=== PATIENT | male | born 1945 | race Caucasian/White ===

== ENCOUNTER 2020-01-06 15:29 | Observation (INO) ==
--- NOTE | 2020-01-06 16:40 | XRay Report ---
XR chest 1V portable CLINICAL HISTORY: Chest Pain dyspnea COMPARISON STUDY: 12/16/2019 FINDINGS: Mild stable cardiomegaly. Slight chronic interstitial prominence. Lungs are considered clear. No focal infiltrative change. IMPRESSION: Mild stable cardiomegaly. Chronic change. No acute process. ACT 112: Negative or not required by law. The above report was generated using voice recognition software. It may contain grammatical, syntax or spelling errors. Electronically signed by: Sher Sorenson M.D. 01/06/2020 4:38 PM
[2020-01-06 17:01] LABS: Basophils # (auto) 0.03 K/uL (0-0.2); Basophils % (auto) 0.4 %; Eosinophils # (auto) 1.29 K/uL (0-0.5); Eosinophils % (auto) 17.3 %; Hematocrit (blood only) 26.7 % (42-52); Hemoglobin 8.2 g/dL (14.0-18.0); Immature Granulocytes # (auto) 0.01 K/uL (0.00-0.02); Immature Granulocytes % (auto) 0.1 %; Lymphocytes # (auto) 1.65 K/uL (1.2-3.4); Lymphocytes % (auto) 22.2 %; Mean Corpuscular Hemoglobin 29.6 pg (25-34); Mean Corpuscular Hgb Conc 30.7 g/dL (32-36); Mean Corpuscular Volume 96.4 fL (80-100); Mean Platelet Volume 10.4 fL (7.4-10.4); Monocytes # (auto) 0.81 K/uL (0.11-0.59); Monocytes % (auto) 10.9 %; Neutrophils # (auto) 3.65 K/uL (1.4-6.5); Neutrophils % (auto) 49.1 %; Platelet Count 199 K/uL (130-400); RDW Coefficient of Variation 13.1 % (11.5-14.5); Red Blood Count 2.77 M/uL (4.7-6.1); White Blood Count 7.44 K/uL (4.8-10.8)
[2020-01-06 17:04] LABS: INR 1.1 (0.9-1.1); Partial Thromboplastin Time 27.3 Seconds (21.0-31.0); Prothrombin Time 10.9 Seconds (9.0-12.0)
[2020-01-06 17:10] LABS: Albumin Level 3.3 gm/dl (3.4-5.0); BUN Creatinine Ratio 16.5 (10-20); Creatinine Clr Calc Pharmacy 14.3 ml/min; Est GFR (African American) 14.1; Est GFR (Non-African American) 12.1; Potassium 4.8 mmol/L (3.5-5.1)
[2020-01-06 17:14] LABS: Albumin Globulin Ratio 0.8 (0.9-2); Bilirubin,Total 0.4 mg/dl (0.2-1); Total Protein 7.3 gm/dl (6.4-8.2); Troponin I 0.021 ng/ml (0-0.045)
[2020-01-06] MEDS ORDERED: ASPIRIN CHEW 324 MG PO STA (18:27)
--- NOTE | 2020-01-06 18:39 | History & Physical Report ---
Date of Service January 06, 2020 Assessment & Plan (1) Angina pectoris: Pt is 74 y/o M with PMH DM II, CKD IV/V, has AV fistula, not on dialysis yet, chronic anemia, HTN, HLD, PVD s/p stent, tobacco abuse, gastritis, presented to ER with complaint of intermittent chest pain with walking with as sociated SOB and left jaw discomfort x 1 month. symptoms resolve with rest after approx 20 minutes. No Current CP In ER P: 53, R: 16, BP: 132/58, 98% on RA No leukocytosis, H/H: 8.2/ (baseline Hgb 8-9), Troponin: 0.02, EKG: sinus with RBBB, nonspecific ST changes, Old EKG with RBBB, T wave inversions Chest pain consistent with angina. Risk factors: HTN, hyperlipidemia, DM, tobacco use -Monitor Vitals -Repeat EKG in am -Will trend troponin -Echo -lipid panel in am, continue statin -Continue aspirin, carvedilol, Plavix -Nitro prn CP and repeat EKG for CP -Cardiology consult (2) Hypertension: Stable -Continue carvedilol, amlodipine, hydralazine (3) CKD (chronic kidney disease), stage IV: CKD IV and early V. Has fistula. Not on dialysis yet. Follows with Dr Jay Cr: 4.4. Baseline ~3.9-4) -Monitor renal functions -Avoid nephrotoxic agents when possible (4) PAD (peripheral artery disease): S/P stent to LLE in [place] by Dr Mcneill On Plavix, stopped taking 1 month ago secondary to skin bleeding after scratching -Resume Plavix (5) Diabetes mellitus, type 2: A1c: 5.7 on -Hold glimepiride, Tradjenta -Novolog sliding scale per protocol (6) Chronic anemia: H/H: 8.2 (baseline Hgb 8-9) -Monitor CBC (7) BPH (benign prostatic hyperplasia): -Continue finasteride, tamsulosin (8) Gastritis: History EGD 12/29/2019: Erosive gastritis/duodenitis, nonbleeding AVM that was clipped Denies melena, hematochezia, abdominal pain -Continue PPI (9) Tobacco abuse: -Smoking cessation encouraged DVT Prophylaxis -SCDs Admit tele observation Full Code as per discussion with pt Follows with Dr Peña for routine care Pt was seen and care coordinated with Dr Crabtree. See addendum History of Present Illness Chief Complaint: CP Primary Care Provider: Laron Peña MD Pt is 74 y/o M with PMH DM II, CKD IV/V, has AV fistula, not on dialysis yet, chronic anemia, HTN, HLD, PVD s/p stent, tobacco abuse, gastritis, presented to ER with complaint of intermittent chest pain x 1 month. Patient states for the past month he has been having anterior chest pain with walking with associated shortness of breath and discomfort to left jaw. Reports when symptoms occur he sits and rests and symptoms resolve in approximately 20 minutes. Denies any current CP. Denies diaphoresis, dizziness, palpitations. Patient states he is still taking Plavix daily secondary to PVD however stopped taking it approximately 1 month ago secondary to bleeding of skin after scratching. He reports had stent to left leg at [place] by Dr Mcneill, thinks approx 1.5 years ago. Denies fever/chills, diaphoresis, N/V/D/C, DOW, dizziness, syncope, vision changes, neck pain, orthopnea, cough, sore throat, choking, otalgia, rhinorrhea, abdominal pain, paresthesias, weakness, extremity edema, rashes, urinary symptoms, melena, hematochezia. History EGD 12/29/2019: Erosive gastritis/duodenitis, nonbleeding AVM that was clipped Allergies Allergy/AdvReac Type Severity Reaction Status Date / Time No Known Allergies Allergy Verified 01/06/20 18:08 Home Medications Home Medications Medication Instructions Recorded Confirmed Type Tradjenta 5 mg PO QAM 07/31/19 01/06/20 History amlodipine 10 mg PO HS 07/31/19 01/06/20 History atorvastatin 40 mg PO QPM 07/31/19 01/06/20 History carvedilol 12.5 mg PO BID 07/31/19 01/06/20 History cholecalciferol (vitamin D3) 1,000 unit PO QAM 07/31/19 01/06/20 History [Vitamin D3] citalopram 40 mg PO QPM 07/31/19 01/06/20 History dicyclomine 10 mg PO TID 07/31/19 01/06/20 History finasteride 5 mg PO HS 07/31/19 01/06/20 History glimepiride 4 mg PO QAM 07/31/19 01/06/20 History hydralazine 75 mg PO BID 07/31/19 01/06/20 History tamsulosin 0.4 mg PO HS 07/31/19 01/06/20 History albuterol sulfate 2 puff INHALATION Q6H PRN 12/16/19 01/06/20 History loratadine 10 mg PO DAILY PRN 12/16/19 01/06/20 History aspirin 81 mg PO QAM 01/06/20 01/06/20 History clopidogrel 75 mg PO DAILY 01/06/20 01/06/20 History pantoprazole 40 mg PO QAM 01/06/20 01/06/20 History Past Med/Surg History Medical History Anxiety and depression BPH (benign prostatic hyperplasia) Chronic anemia CKD (chronic kidney disease), stage IV Diabetes mellitus, type 2 Hyperlipidemia Hypertension Osteoarthritis PAD (peripheral artery disease) Tobacco abuse Surgical History Cardiac murmur History of cataract surgery RT/LEFT History of cholecystectomy History of colonoscopy History of esophagogastroduodenoscopy (EGD) History of procedure for peripheral vascular disease LEFT LEG (STENT PLACED/REASON FOR TAKING PLAVIX) History of tooth extraction Family History Brother Cancer Social History Preferred Language: Wol[place] Communication Ability: Effective 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 Beliefs That Will Affect Care: None Current Living Situation: Alone Feels Safe at Home: Yes Smoking Status: Current every day smoker Tobacco Type: cigarettes ; Cigarettes Per Day: 10 CIG ; Second Hand Exposure: No ; Hx Alcohol Use: No Hx Substance Use: No Review of Systems Review of Systems: All systems reviewed & are unremarkable except as noted in HPI & below Physical Exam Physical Exam: General: no distress, chronic ill appearing, WDWN Head: normocephalic, atraumatic Eyes: PERRL, EOM's intact, conjunctiva non-injected, anicteric ENT: normal inspection external ears, nose, mucous membranes moist Neck: supple, trachea midline Lungs: clear, no respiratory distress, no wheezing/rhonchi/rales CV: RRR, systolic murmur, no pretibial edema Abd: normal BS, soft, non-tender Ext: no cyanosis, no calf tenderness; Left forearm with fistula with palpable thrill Neuro: A&O x 3, no focal deficits noted, normal affect Skin: warm, dry Results & Data Vital Signs (Past 12 Hours) Vital Signs Temp Pulse Resp BP Pulse Ox 01/06/20 16:59 98 01/06/20 16:51 100 01/06/20 16:05 36.8 C 53 L 16 132/58 L 98 Laboratory Results Short CBC 01/06/20 Range/Units 16:34 WBC 7.44 (4.8-10.8) K/uL Hgb 8.2 L (14.0-18.0) g/dL Hct 26.7 L (42-52) % Plt Count 199 (130-400) K/uL BMP 01/06/20 16:34 Sodium 139 Potassium 4.8 Chloride 112 H Carbon Dioxide 19 L BUN 72 H Creatinine 4.40 H Glucose 161 H Calcium 9.0 Cardiac Enzymes 01/06/20 Range/Units 16:34 Troponin I 0.021 (0-0.045) ng/ml Liver Function 01/06/20 Range/Units 16:34 Total Bilirubin 0.4 (0.2-1) mg/dl AST 18 (15-37) U/L ALT 31 (12-78) U/L Alkaline Phosphatase 78 (45-117) U/L Albumin 3.3 L (3.4-5.0) gm/dl Diagnostic Findings CXR: IMPRESSION: Mild stable cardiomegaly. Chronic change. No acute process. Code Status & VTE Plan VTE Prophylaxis Plan VTE Prophylaxis will be ordered: Yes Supervising Physician Co-Signing Physician Notes Attending addendum The patient is seen and examined in telemetry unit He has been complaining of chest pain on and off with shortness of breath very suggestive of angina for the last 1 month Complaints of generalized weakness without any fever and/or chills No abdominal pain nausea no vomiting On examination No apparent distress at rest Hemodynamically stable Chest-decreased breath sounds at the bases Heart- S1-S2, 2/6 systolic murmur over precordium Abdomen-benign Extremities -no edema BENEFITS CONSULTANT-alert, awake and oriented x3. Generally weak Admission labs, imaging studies and EKG reviewed Has typical angina without significant EKG and a troponin elevation Associated with significant comorbid conditions as mentioned in H&P Serial cardiac enzymes, EKG and cardiology consult Agree with assessment and plan as outlined above by CHANELL Bautista Dr
[2020-01-06] MEDS ORDERED: GLUCOSE 10 TABS/TUBE PO PRN (20:05)
[2020-01-06] MEDS ORDERED: CARBOHYDRATES FOR HYPOGLYCEMIA PO PRN (20:05)
[2020-01-06] MEDS ORDERED: DEXTROSE 50% 50 ML SYRINGE IV PRN (20:05)
[2020-01-06] MEDS ORDERED: GLUCOSE 40% GEL 15 GM TUBE PO PRN (20:05)
[2020-01-06] MEDS ORDERED: GLUCAGON FOR INJ 1 MG VIAL SQ PRN (20:05)
[2020-01-06] MEDS ORDERED: NITROGLYCERIN SL 0.4 MG/TAB TAB SL PRN (20:05)
[2020-01-06] MEDS ORDERED: LORATADINE 10 MG TAB PO PRN (20:05)
[2020-01-06] MEDS ORDERED: ACETAMINOPHEN 325 MG TAB PO PRN (20:05)
[2020-01-06] MEDS: CITALOPRAM 40 MG TAB PO SCH (21:13)
[2020-01-06] MEDS: carvediloL 12.5 MG TAB PO SCH (21:13)
[2020-01-06] MEDS: AMLODIPINE BESYLATE 5 MG TAB PO SCH (21:14)
[2020-01-06] MEDS: TAMSULOSIN HCL 0.4 MG CAP PO SCH (21:14)
[2020-01-06] MEDS: FINASTERIDE 5 MG TAB PO SCH (21:14)
[2020-01-06] MEDS: INSULIN ASPART 100 UNITS/ML 3 ML PEN SC SCH (21:15)
[2020-01-06] MEDS: ATORVASTATIN 40 MG TAB PO SCH (21:15)
--- NOTE | 2020-01-06 23:12 | Emergency Department Note ---
Entered by Vargas Bruner acting as a scribe for History of Present Illness General Chief complaint: Cardiac Assessment Stated complaint: CHEST PAIN, SOB Time Seen by Provider: 01/06/20 16:13 Source: patient History of Present Illness Onset (ago): month(s) 1 Location: chest Pain Consistency: + intermittent Quality: + sharp Exacerbated By: + other (cold air and exertion) Associated symptoms: + denies other symptoms (lightheadedness, sweating, dizziness, arm pain, neck pain, fever, cold symptoms, current chest pain, leg swelling, leg pain, chest pressure, black stool, bloody stool, chest tightness) The patient is a 74 y/o male who presents to the ED w/ CC of intermittent, sharp chest pain beginning a month ago. The patient states he was evaluated in the ED two weeks ago for similar symptoms and was sent home. He reports his chest pain is not every day, and the last time he had pain was about 3 hours ago. The patient notes he feels that cold air induces his chest pain, and it worsens with exertion as he goes up the stairs. He states he is also short of breath. The patient reports he was evaluated by his PCP today and was told to go directly to the ED and not to return home. He notes he has had a stress test a few years ago. The patient states he has a history of HLD, HTN, and DM, and he smokes 1/2 pack a day. He denies lightheadedness, sweating, dizziness, arm pain, neck pain, a personal and family history of heart trouble, fever, cold symptoms, current chest pain, leg swelling, leg pain, chest pressure, black stool, bloody stool, chest tightness, and a history of COPD or emphysema. The patient call-in worksheet states he was experiencing chest pain, shortness of breath and jaw pain at the PCP office. He stopped his Plavix a month ago for a possible bleed. Home Medications Home Medications Medication Instructions Recorded Confirmed Type Tradjenta 5 mg PO QAM 07/31/19 01/06/20 History amlodipine 10 mg PO HS 07/31/19 01/06/20 History atorvastatin 40 mg PO QPM 07/31/19 01/06/20 History carvedilol 12.5 mg PO BID 07/31/19 01/06/20 History cholecalciferol (vitamin D3) 1,000 unit PO QAM 07/31/19 01/06/20 History [Vitamin D3] citalopram 40 mg PO QPM 07/31/19 01/06/20 History dicyclomine 10 mg PO TID 07/31/19 01/06/20 History finasteride 5 mg PO HS 07/31/19 01/06/20 History glimepiride 4 mg PO QAM 07/31/19 01/06/20 History hydralazine 75 mg PO BID 07/31/19 01/06/20 History tamsulosin 0.4 mg PO HS 07/31/19 01/06/20 History albuterol sulfate 2 puff INHALATION Q6H PRN 12/16/19 01/06/20 History loratadine 10 mg PO DAILY PRN 12/16/19 01/06/20 History aspirin 81 mg PO QAM 01/06/20 01/06/20 History clopidogrel 75 mg PO DAILY 01/06/20 01/06/20 History pantoprazole 40 mg PO QAM 01/06/20 01/06/20 History Allergies Allergy/AdvReac Type Severity Reaction Status Date / Time No Known Allergies Allergy Verified 01/06/20 18:08 Past Med/Surg History Medical History Anxiety and depression BPH (benign prostatic hyperplasia) Chronic anemia CKD (chronic kidney disease), stage IV Diabetes mellitus, type 2 Hyperlipidemia Hypertension Osteoarthritis PAD (peripheral artery disease) Tobacco abuse Surgical History Cardiac murmur History of cataract surgery RT/LEFT History of cholecystectomy History of colonoscopy History of esophagogastroduodenoscopy (EGD) History of procedure for peripheral vascular disease LEFT LEG (STENT PLACED/REASON FOR TAKING PLAVIX) History of tooth extraction Family History Brother Cancer Social History Preferred Language: [place] Communication Ability: Effective 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 and A total of 10 systems reviewed and were otherwise negative Physical Exam Vital Signs Vital Signs - 24 hr 01/06/20 16:05 01/06/20 16:40 01/06/20 16:51 Temperature 36.8 C Temperature Source Oral Pulse Rate 53 L 54 L Pulse Rate from SpO2 Sensor 54 L Respiratory Rate 16 15 Respiratory Effort / Characteristics Non-Labored Spontaneous Respiratory Depth Normal Blood Pressure 132/58 L Blood Pressure Mean 82 Blood Pressure Position Sitting Pulse Oximetry 98 99 100 Oxygen Delivery Method Room Air Room Air Sepsis Recent Fever Within 48 Hours No Sepsis New/Unexplained Change in Mental Status No Sepsis Action Taken by Nursing No Action Required 01/06/20 16:59 01/06/20 17:00 01/06/20 17:33 Temperature Temperature Source Pulse Rate 56 L 55 L Pulse Rate from SpO2 Sensor 55 L Respiratory Rate 20 12 Respiratory Effort / Characteristics Respiratory Depth Blood Pressure Blood Pressure Mean Blood Pressure Position Pulse Oximetry 98 99 Oxygen Delivery Method Room Air Sepsis Recent Fever Within 48 Hours Sepsis New/Unexplained Change in Mental Status Sepsis Action Taken by Nursing 01/06/20 17:37 01/06/20 18:00 Temperature Temperature Source Pulse Rate 68 52 L Pulse Rate from SpO2 Sensor Respiratory Rate 19 17 Respiratory Effort / Characteristics Respiratory Depth Blood Pressure 175/66 H 165/94 H Blood Pressure Mean 91 134 Blood Pressure Position Pulse Oximetry Oxygen Delivery Method Sepsis Recent Fever Within 48 Hours Sepsis New/Unexplained Change in Mental Status Sepsis Action Taken by Nursing Constitutional: Vital signs reviewed. Eyes: Pupils are equal round reactive to light. Conjunctiva are noninjected. ENT: Pharynx is clear without erythema or exudate. Mucous membranes are moist. Neck supple without meningeal signs. Respiratory: Clear to auscultation bilaterally. Breath sounds are equal bilaterally. Cardiovascular: Regular rate and rhythm. No rubs or gallops. GI: Soft, nondistended and nontender. Bowel sounds are present. Musculoskeletal: No peripheral edema. No lower extremity tenderness. Integumentary: No cyanosis. Neurological: The patient is awake and alert. No focal deficits. Psychiatric: Normal affect. Course Course 1617: The patient was evaluated in room B02. A complete history and physical exam was performed. 1727: Upon reevaluation, the patient is resting comfortably. I discussed laboratory and radiographic results with him and his family. They verbalized agreement of the treatment plan. The patient will be evaluated for further management and care. 1736: I reviewed the patient's case with Angelita Goddard PA-C, [facility] Hospitalist, attending Dr. Crabtree. She will evaluate the patient for further management. Administered Medications Amlodipine Besylate (Norvasc) 10 mg PO HS RANDY Stop: 02/05/20 20:59 Last Admin: 01/06/20 21:14 Dose: 10 mg Documented by: [id number] Atorvastatin Calcium (Lipitor) 40 mg PO QPM RANDY Stop: 02/05/20 20:59 Last Admin: 01/06/20 21:15 Dose: 40 mg Documented by: [id number] Carvedilol (Coreg) 12.5 mg PO BIDM RANDY Stop: 02/05/20 20:59 Last Admin: 01/06/20 21:13 Dose: 12.5 mg Documented by: [id number] Citalopram Hydrobromide (Celexa) 40 mg PO QPM RANDY Stop: 02/05/20 20:59 Last Admin: 01/06/20 21:13 Dose: 40 mg Documented by: [id number] Finasteride (Proscar) 5 mg PO HS RANDY Stop: 02/05/20 20:59 Last Admin: 01/06/20 21:14 Dose: 5 mg Documented by: [id number] Hydralazine HCl (Apresoline) 75 mg PO BID RANDY Stop: 02/05/20 20:59 Last Admin: 01/06/20 21:13 Dose: 75 mg Documented by: [id number] Insulin Aspart (Novolog Flexpen) 0 units SC ACHS RANDY Stop: 02/05/20 20:59 Last Admin: 01/06/20 21:15 Dose: Not Given Documented by: [id number] Cosigned by: [id number] Tamsulosin HCl (Flomax) 0.4 mg PO HS RANDY Stop: 02/05/20 20:59 Last Admin: 01/06/20 21:14 Dose: 0.4 mg Documented by: [id number] Discontinued Medications Aspirin (Aspirin) 324 mg PO NOW STA Stop: 01/06/20 18:28 Last Admin: 01/06/20 19:04 Dose: 324 mg Documented by: [id number] Medical Decision Making Differential Diagnosis Differential diagnosis includes: unstable angina, UT, pleurisy, anemia, pneumonia. Medical Records Attestation: I reviewed the patient's medical records. I did perform a limited focused review of portions of the patient's old chart on the electronic medical record. The patient was seen in December for abnormal labs and has a history of CKD. He was discharged home. His hemoglobin on 12/15 was 7.9 which is an increase from 09/23 when it was 6.1. Home Medications Current Medication List: was personally reviewed by me Laboratory Data Attestation: I reviewed the patient's lab results. Result diagrams: 01/06/20 16:34 01/06/20 16:34 Lab Results 01/06/20 01/06/20 01/06/20 Range/Units 16:34 16:34 16:34 WBC 7.44 (4.8-10.8) K/uL RBC 2.77 L (4.7-6.1) M/uL Hgb 8.2 L (14.0-18.0) g/dL Hct 26.7 L (42-52) % MCV 96.4 (80-100) fL MCH 29.6 (25-34) pg MCHC 30.7 L (32-36) g/dL RDW Std Deviation 46.0 (36.4-46.3) fL RDW Coeff of Danny 13.1 (11.5-14.5) % Plt Count 199 (130-400) K/uL MPV 10.4 (7.4-10.4) fL Immature Gran % (Auto) 0.1 % Neut % (Auto) 49.1 % Lymph % (Auto) 22.2 % [place] % (Auto) 10.9 % Eos % (Auto) 17.3 % Baso % (Auto) 0.4 % Immature Gran # (Auto) 0.01 (0.00-0.02) K/uL Neut # (Auto) 3.65 (1.4-6.5) K/uL Lymph # (Auto) 1.65 (1.2-3.4) K/uL [place] # (Auto) 0.81 H (0.11-0.59) K/uL Eos # (Auto) 1.29 H (0-0.5) K/uL Baso # (Auto) 0.03 (0-0.2) K/uL PT (9.0-12.0) Seconds INR (0.9-1.1) APTT (21.0-31.0) Seconds PTT Ratio Sodium 139 (136-145) mmol/L Potassium 4.8 (3.5-5.1) mmol/L Chloride 112 H (98-107) mmol/L Carbon Dioxide 19 L (21-32) mmol/L Anion Gap 8.0 (3-11) BUN 72 H (7-18) mg/dl Creatinine 4.40 H (0.6-1.4) mg/dl Est Cr Clr Drug Dosing 14.3 ml/min Est GFR ( Amer) 14.1 Est GFR (Non-Af Amer) 12.1 BUN/Creatinine Ratio 16.5 (10-20) Glucose 161 H (70-99) mg/dl Calcium 9.0 (8.5-10.1) mg/dl Total Bilirubin 0.4 (0.2-1) mg/dl AST 18 (15-37) U/L ALT 31 (12-78) U/L Alkaline Phosphatase 78 (45-117) U/L Troponin I 0.021 (0-0.045) ng/ml Total Protein 7.3 (6.4-8.2) gm/dl Albumin 3.3 L (3.4-5.0) gm/dl Globulin 4.0 (2.5-4.0) gm/dl Albumin/Globulin Ratio 0.8 L (0.9-2) Blood Type A Positive Antibody Screen NEGATIVE 01/06/20 Range/Units 16:34 WBC (4.8-10.8) K/uL RBC (4.7-6.1) M/uL Hgb (14.0-18.0) g/dL Hct (42-52) % MCV (80-100) fL MCH (25-34) pg MCHC (32-36) g/dL RDW Std Deviation (36.4-46.3) fL RDW Coeff of Danny (11.5-14.5) % Plt Count (130-400) K/uL MPV (7.4-10.4) fL Immature Gran % (Auto) % Neut % (Auto) % Lymph % (Auto) % [place] % (Auto) % Eos % (Auto) % Baso % (Auto) % Immature Gran # (Auto) (0.00-0.02) K/uL Neut # (Auto) (1.4-6.5) K/uL Lymph # (Auto) (1.2-3.4) K/uL [place] # (Auto) (0.11-0.59) K/uL Eos # (Auto) (0-0.5) K/uL Baso # (Auto) (0-0.2) K/uL PT 10.9 (9.0-12.0) Seconds INR 1.1 (0.9-1.1) APTT 27.3 (21.0-31.0) Seconds PTT Ratio 1.0 Sodium (136-145) mmol/L Potassium (3.5-5.1) mmol/L Chloride (98-107) mmol/L Carbon Dioxide (21-32) mmol/L Anion Gap (3-11) BUN (7-18) mg/dl Creatinine (0.6-1.4) mg/dl Est Cr Clr Drug Dosing ml/min Est GFR ( Amer) Est GFR (Non-Af Amer) BUN/Creatinine Ratio (10-20) Glucose (70-99) mg/dl Calcium (8.5-10.1) mg/dl Total Bilirubin (0.2-1) mg/dl AST (15-37) U/L ALT (12-78) U/L Alkaline Phosphatase (45-117) U/L Troponin I (0-0.045) ng/ml Total Protein (6.4-8.2) gm/dl Albumin (3.4-5.0) gm/dl Globulin (2.5-4.0) gm/dl Albumin/Globulin Ratio (0.9-2) Blood Type Antibody Screen Imaging Data Radiologist's Impression: Radiology results as stated below per my review and the radiologist's interpretation: XR chest 1V portable CLINICAL HISTORY: Chest Pain dyspnea COMPARISON STUDY: 12/16/2019 FINDINGS: Mild stable cardiomegaly. Slight chronic interstitial prominence. Lungs are considered clear. No focal infiltrative change. IMPRESSION: Mild stable cardiomegaly. Chronic change. No acute process. ACT 112: Negative or not required by law. The above report was generated using voice recognition software. It may contain grammatical, syntax or spelling errors. Electronically signed by: Sher Sorenson M.D. 01/06/2020 4:38 PM ECG Data Attestation: I personally reviewed and interpreted this ECG as follows: Indication: + chest pain Rate (beats per minute): 54 Rhythm: + sinus bradycardia ECG Intervals/blocks: + Right Bundle branch block ECG Findings: + Other (Biphasic T-waves in the lateral and inferior leads. Questionable limb lead reversal) Comparison ECG Date: from (12/16/19) Change: no significant change Blood Pressure Blood Pressure Findings: Elevated blood pressure Blood Pressure Disposition: further management by hospitalist [facility] Narrative I did evaluate the patient as noted above. The patient is presenting with intermittent chest pain. He states he was here previously for the same but n othing was found. He continues to have chest discomfort but denies having any at this time. He does state it is worse with exertion. IV access was established. The patient was placed on a continuous machine hostler. I did order and personally review the patient's 12-lead EKG as described above. He has a right bundle branch block with no acute ischemic changes. I did order and personally reviewed the images of the patient's chest x-ray as described above. He has mild cardiomegaly but no acute changes. I did order and review the patient's blood work as noted in the electronic medical record. He has chronic stable anemia and kidney disease. Creatinine is slightly elevated above baselin e. Troponin is negative. I did discuss the test results with the patient and his family. I did recommend hospitalization for further care and evaluation. I did discuss the case with the hospitalist and correctional casework specialist. Continuous Cardiac Monitoring: An order was placed for continuous cardiac monitoring due to chest pain. The monitor shows a rate of 53 with sinus bradyc ardic rhythm.. Impression & Plan Chest pain, exertional, Chronic anemia, CKD (chronic kidney disease) Discharge Plan Visit Data *Final* Discharge Date/Time: 01/06/20 19:10 Chief Complaint: Cardiac Assessment Stated Complaint: CHEST PAIN, SOB ED Provider: Raheem Post Discharge Problem: Chest pain, exertional, Chronic anemia, CKD (chronic kidney disease) Patient Disposition: Admitted As Inpatient Discharge Instructions Interventions: ED Discharge Assessment Last Done: 01/06/20 19:10 The scribe's documentation has been prepared under my direction and personally reviewed by me in its entirety. I confirm that the note above accurately reflects all work, treatment, procedures, and medical decision making performed by me.
[2020-01-07 04:07] LABS: Hematocrit (blood only) 25.4 % (42-52); Mean Corpuscular Hemoglobin 30.1 pg (25-34); Mean Corpuscular Hgb Conc 31.5 g/dL (32-36); Mean Corpuscular Volume 95.5 fL (80-100); Mean Platelet Volume 9.7 fL (7.4-10.4); Platelet Count 183 K/uL (130-400); RDW Standard Deviation 45.3 fL (36.4-46.3); Red Blood Count 2.66 M/uL (4.7-6.1); White Blood Count 7.12 K/uL (4.8-10.8)
[2020-01-07 04:29] LABS: BUN Creatinine Ratio 17.4 (10-20); Calcium 8.6 mg/dl (8.5-10.1); Creatinine Clr Calc Pharmacy 14.6 ml/min; Est GFR (African American) 14.5; Est GFR (Non-African American) 12.5; Potassium 4.3 mmol/L (3.5-5.1)
[2020-01-07 04:34] LABS: Phosphorus 5.9 mg/dl (2.5-4.9); Troponin I 0.03 ng/ml (0-0.045)
[2020-01-07] MEDS: INSULIN ASPART 100 UNITS/ML 3 ML PEN SC SCH ×4 (07:29→21:05)
[2020-01-07] MEDS: CHOLECALCIFEROL 1,000 UNITS 25 MCG TAB PO SCH (07:31)
[2020-01-07] MEDS: CLOPIDOGREL BISULFATE 75 MG TAB PO SCH (07:31)
[2020-01-07] MEDS: ASPIRIN 81 MG ECTAB PO SCH (07:31)
[2020-01-07] MEDS: PANTOprazole 40 MG TAB PO SCH (07:31)
[2020-01-07] MEDS: carvediloL 12.5 MG TAB PO SCH ×2 (09:25→17:18)
--- NOTE | 2020-01-07 10:24 | Cardiology Consultation ---
Date of Consultation January 07, 2020 Assessment & Plan (1) Chest pain: Atypical presentation for unstable angina Cardiac enzymes unremarkable which is rather significant given the degree of his chronic kidney disease. Nonischemic Lexiscan nuclear stress test January 2018 We will repeat Lexiscan nuclear stress test at this time to rule out ischemia. (2) CKD (chronic kidney disease), stage IV: Following with nephrology as an outpatient (3) Diabetes mellitus, type 2: (4) PAD (peripheral artery disease): Following with vascular surgery as an outpatient (5) Tobacco abuse: Counseled on the absolute need for smoking cessation History of Present Illness Reason for Consultation: chest pain Requesting Physician: Dr. Whitehead Attending Physician: Rosa Whitehead MD History of Present Illness It was my pleasure to see Mr. Villalobos in consultation today January 07, 2020. He is a 74-year-old gentleman who routinely follows with Dr. Healy for his cardiac care. The patient presented to [facility] on January 06, 2020 with complaints of chest pain x1 month. He states that the pain comes and goes and has happened approximately 5 times in the last month. He describes as a sharp stabbing pain along his left sternal border at approximately the sixth intercostal space. He states that usually occurs with exertion but can also oc cur when he is just sitting down. He denies any associated symptoms of radiation of the discomfort, diaphoresis, shortness of breath, nausea, palpitations, lightheadedness, dizziness or syncope. He states that his most recent episode was the day of presentation when he was walking around his house in the discomfort lasted for approximately 20 minutes and then subsided on its own. He has never tried taking any medications for this. PMHX: 1. peripheral arterial disease status post SFA PCI in 2017 2. Nonobstructive carotid occlusive disease less than 50% stenosis on the right 50 to 69% on the left 3. Ongoing tobacco abuse Hypertension 5. Dyslipidemia 6. Diabetes 7. Nonischemic Lexiscan nuclear stress test January 2018. Allergies Allergy/AdvReac Type Severity Reaction Status Date / Time No Known Allergies Allergy Verified 01/06/20 18:08 Home Medications Home Medications Medication Instructions Recorded Confirmed Type Tradjenta 5 mg PO QAM 07/31/19 01/06/20 History amlodipine 10 mg PO HS 07/31/19 01/06/20 History atorvastatin 40 mg PO QPM 07/31/19 01/06/20 History carvedilol 12.5 mg PO BID 07/31/19 01/06/20 History cholecalciferol (vitamin D3) 1,000 unit PO QAM 07/31/19 01/06/20 History [Vitamin D3] citalopram 40 mg PO QPM 07/31/19 01/06/20 History dicyclomine 10 mg PO TID 07/31/19 01/06/20 History finasteride 5 mg PO HS 07/31/19 01/06/20 History glimepiride 4 mg PO QAM 07/31/19 01/06/20 History hydralazine 75 mg PO BID 07/31/19 01/06/20 History tamsulosin 0.4 mg PO HS 07/31/19 01/06/20 History albuterol sulfate 2 puff INHALATION Q6H PRN 12/16/19 01/06/20 History loratadine 10 mg PO DAILY PRN 12/16/19 01/06/20 History aspirin 81 mg PO QAM 01/06/20 01/06/20 History clopidogrel 75 mg PO DAILY 01/06/20 01/06/20 History pantoprazole 40 mg PO QAM 01/06/20 01/06/20 History Patient History Medical History Anxiety and depression BPH (benign prostatic hyperplasia) Chronic anemia CKD (chronic kidney disease), stage IV Diabetes mellitus, type 2 Hyperlipidemia Hypertension Osteoarthritis PAD (peripheral artery disease) Tobacco abuse Surgical History Cardiac murmur History of cataract surgery RT/LEFT History of cholecystectomy History of colonoscopy History of esophagogastroduodenoscopy (EGD) History of procedure for peripheral vascular disease LEFT LEG (STENT PLACED/REASON FOR TAKING PLAVIX) History of tooth extraction Family History Brother Cancer Social History Preferred Language: Serbian Communication Ability: Effective Field 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 No acute distress. HEENT: Normocephalic, atraumatic. Pupils equal, round and reactive to light and accommodation. Extraocular muscles are intact. Anicteric sclera. Moist mucous membranes. Neck: No JVD. No bruit. Cardiovascular: Regular. Positive S-4. Normal S-1 and S-2. No S-3. 3/6 mid to late systolic ejection murmur, greatest at the right sternal border, second intercostal space with radiation to the bilateral carotids. No rubs. Pulmonary: Clear to auscultation bilaterally. No rales, rhonchi, or wheezing. Abdomen: Bowel sounds x 4, soft. No rebound, guarding or tenderness. No organomegaly. Extremities: No clubbing, cyanosis or edema. +2 pedal pulses bilaterally. Skin: Warm and dry. Results & Data ([facility]) Vital Signs (Past 12 Hours) Vital Signs Temp Pulse Pulse Resp BP Pulse Ox 01/07/20 07:15 36.4 C L 54 L 18 133/66 96 01/07/20 03:44 36.4 C L 53 L 18 98/47 L 97 01/07/20 00:00 59 L 01/06/20 23:28 36.4 C L 55 L 16 124/49 L 96
--- NOTE | 2020-01-07 15:48 | Electrocardiogram Report ---
Test Reason : Blood Pressure : / mmHG Vent. Rate : 054 BPM Atrial Rate : 054 BPM P-R Int : 162 ms QRS Dur : 142 ms QT Int : 520 ms P-R-T Axes : 027 246 203 degrees QTc Int : 493 ms Sinus bradycardia Right bundle branch block Leftward axis Possible Anteroseptal infarct (cited on or before 16-DEC-2019) T wave abnormality, consider inferolateral ischemia Abnormal ECG When compared with ECG of 16-DEC-2019 18:11, No significant change Confirmed by Juan Luis Porter ([id number]) on 01/07/2020 3:48:46 PM Referred By: REFERRED SELF Confirmed By:Juan Luis Porter
--- NOTE | 2020-01-07 16:00 | Electrocardiogram Report ---
Test Reason : Blood Pressure : / mmHG Vent. Rate : 056 BPM Atrial Rate : 056 BPM P-R Int : 160 ms QRS Dur : 134 ms QT Int : 528 ms P-R-T Axes : 059 -62 -35 degrees QTc Int : 509 ms Sinus bradycardia Right bundle branch block Left anterior fascicular block Bifascicular block Minimal voltage criteria for LVH, may be normal variant ( R in aVL ) Abnormal ECG When compared with ECG of 06-JAN-2020 16:14, (unconfirmed) Borderline criteria for Anteroseptal infarct are no longer Present Confirmed by Juan Luis Porter ([id number]) on 01/07/2020 4:00:17 PM Referred By: REFERRED SELF Confirmed By:Juan Luis Porter
--- NOTE | 2020-01-07 18:07 | Hospitalist Progress Note ---
Date of Service January 07, 2020 Assessment & Plan (1) Chest pain: Presented with chest discomfort, Symptom has resolved since admission, with no recurrence Appreciate input from cardiology, Nuclear cardiac stress test ordered, Completed of first phase of test today Patient denies of any orthopnea no shortness of breath or dyspnea on exertion Continue monitor on telemetry (2) Hypertension: Stable -Continue carvedilol, amlodipine, hydralazine (3) CKD (chronic kidney disease), stage IV: CKD IV and early V. Has fistula. Not on dialysis yet. Follows with Dr Jay Cr: 4.4. Baseline ~3.9-4) -Monitor renal functions -Avoid nephrotoxic agents when possible (4) PAD (peripheral artery disease): S/P stent to LLE in [place] by Dr Mnceill On Plavix, stopped taking 1 month ago secondary to skin bleeding after scratching -Resume Plavix (5) Diabetes mellitus, type 2: A1c: 5.7 on -Hold glimepiride, Tradjenta Insulin sliding scale Appreciate input from pharmacy, patient had multiple episode hypoglycemic/low blood sugar at home Given advanced CKD, poor renal clearance, Glimepiride will be discontinued on discharge/because high risk for hypoglycemia (6) Chronic anemia: H/H: 8.2/26 (baseline Hgb 8-9) -Monitor CBC (7) BPH (benign prostatic hyperplasia): -Continue finasteride, tamsulosin (8) Gastritis: History EGD 12/29/2019: Erosive gastritis/duodenitis, nonbleeding AVM that was clipped Denies melena, hematochezia, abdominal pain -Continue PPI (9) Tobacco abuse: -Smoking cessation encouraged DVT Prophylaxis -SCDs Admission and Anticipated Discharge Date Admission Date: January 06, 2020 Subjective Patient denies of any chest pain, no shortness of breath Did not had any recurrence of chest heaviness or discomfort since admission Feels fine, had first part of nuclear stress test done today No cough, no fever or chills, Review of Systems Review of Systems: All systems reviewed & are unremarkable except as noted in HPI & below Cardiovascular: no chest pain, no chest pain at rest, no dyspnea, no dyspnea at rest, no palpitations, no lightheadedness, no syncope and no edema Physical Exam Constitutional: WD/WN, vitals as above no acute distress Eyes: PERRL, conjunctivae normal, anicteric sclerae ENMT: external ear and nose normal, oropharynx normal Neck: trachea midline, no thyromegaly Respiratory: normal respiratory effort, lungs clear to auscultation Cardiovascular: RRR, no murmur, no edema Gastrointestinal (Abdomen): normal bowel sounds, soft, nontender, no hepatosplenomegaly Musculoskeletal: no cyanosis or clubbing, extremities motor strength 5/5 Skin: no rashes, warm and dry Neurologic: PERRL, EOMI, accommodation nl, no face palsy, no dysarthria Psychiatric: A+Ox3, euthymic affect Results & Data ([facility]) Vital Signs (Past 12 Hours) Vital Signs Temp Pulse Pulse Resp BP Pulse Ox 01/07/20 16:00 53 L 01/07/20 15:23 36.4 C L 64 20 152/63 H 98 01/07/20 11:20 36.6 C 59 L 20 140/50 L 100 01/07/20 07:30 53 L 01/07/20 07:15 36.4 C L 54 L 18 133/66 96
[2020-01-07] MEDS: AMLODIPINE BESYLATE 5 MG TAB PO SCH (19:28)
[2020-01-07] MEDS: FINASTERIDE 5 MG TAB PO SCH (19:28)
[2020-01-07] MEDS: TAMSULOSIN HCL 0.4 MG CAP PO SCH (19:28)
[2020-01-07] MEDS: ATORVASTATIN 40 MG TAB PO SCH (19:29)
[2020-01-07] MEDS: CITALOPRAM 40 MG TAB PO SCH (19:29)
[2020-01-08] MEDS: INSULIN ASPART 100 UNITS/ML 3 ML PEN SC SCH ×2 (08:15→13:15)
[2020-01-08] MEDS: CLOPIDOGREL BISULFATE 75 MG TAB PO SCH (08:26)
[2020-01-08] MEDS: ASPIRIN 81 MG ECTAB PO SCH (08:26)
[2020-01-08] MEDS: PANTOprazole 40 MG TAB PO SCH (08:26)
[2020-01-08] MEDS: CHOLECALCIFEROL 1,000 UNITS 25 MCG TAB PO SCH (08:27)
[2020-01-08] MEDS: carvediloL 12.5 MG TAB PO SCH (08:27)
[2020-01-08] MEDS ORDERED: REGADENOSON 0.4 MG/5 ML SYR IV ONE (09:59)
[2020-01-08] MEDS ORDERED: SODIUM CHLORIDE 0.9% 1000ML 250 ML IV ONE (11:48)
--- NOTE | 2020-01-08 13:43 | Myocardial Perfusion Study ---
Date of Service January 08, 2020 Myocardial Perfusion Study [facility] Myocardial Perfusion Study Report [place] Act 112: Negative Procedure: 1. Myocardial perfusion study performed in multiple views/images 2. Lexiscan pharmacologic stress ECG Indications: 1. [Chest pain] Ordering physician: Dr. Duarte Procedural details: For the stress portion of the study, Lexiscan 0.4 mg was intravenously administered followed by a saline flush. This was followed by 22.7 mCi of te chnetium 99m Cardiolite, injected at 1035 on 01/08/2020. 30 minutes following the injection, imaging of the heart was performed in multiple projections. For the rest portion of the study, 21.2 mCi technetium 99m Cardiolite was injected intravenously at 1215 on 01/07/2020. 1 hour following the injection, imaging of the heart was performed in the same projections. Lexiscan stress ECG: Resting ECG demonstrated: Normal sinus rhythm with underlying bifascicular block. Maximum heart rate: 58 bpm Maximal, age-predicted heart rate: 58% Resting blood pressure: 120/50 mmHg Maximum blood pressure: 120/[address] changes: Negative Arrhythmia: Negative Symptoms: Transient shortness of breath. Findings: Rotating raw imaging demonstrated no significant lung uptake. There is no significant motion artifact. Heart size appeared normal. Myocardial perfusion demonstrated homogeneous perfusion throughout the myocardium. Ejection fraction: Greater than 70% % Wall motion: Normal No significant transient ischemic dilation. Impression: 1. Nonischemic Lexiscan nuclear stress test. Normal LV systolic function without regional wall motion abnormality, EF greater than 70%. No previous studies available for comparison.
--- NOTE | 2020-01-08 13:45 | Cardiology Progress Note ---
Date of Service January 08, 2020 Assessment & Plan (1) Chest pain: Atypical presentation for unstable angina Ischemic work-up is negative including a nonischemic Lexiscan nuclear stress test. No further cardiac testing or intervention at this time. Recommend follow-up with PCP for further evaluation and treatment of chest pain. Okay to discharge from a cardiac standpoint. Patient rescheduled to be seen by cardiology as an outpatient (2) CKD (chronic kidney disease), stage IV: Following with nephrology as an outpatient (3) Diabetes mellitus, type 2: (4) PAD (peripheral artery disease): Following with vascular surgery as an outpatient (5) Tobacco abuse: Counseled on the absolute need for smoking cessation Subjective Patient seen and examined states he feels well. No further events of chest pain overnight and denies any shortness of breath, palpitations, lightheadedness, dizziness or syncope. Telemetry reviewed: Normal sinus rhythm with underlying bifascicular block. Review of Systems Review of Systems: All systems reviewed & are unremarkable except as noted in HPI & below Physical Exam Physical Exam: General: Awake, alert and oriented x 3. No acute distress. HEENT: Normocephalic, atraumatic. Pupils equal, round and reactive to light and accommodation. Extraocular muscles are intact. Anicteric sclera. Moist mucous membranes. Neck: No JVD. No bruit. Cardiovascular: Regular. Positive S-4. Normal S-1 and S-2. No S-3. 3/6 mid to late systolic ejection murmur, greatest at the right sternal border, second intercostal space with radiation to the bilateral carotids. No rubs. Pulmonary: Clear to auscultation bilaterally. No rales, rhonchi, or wheezing. Abdomen: Bowel sounds x 4, soft. No rebound, guarding or tenderness. No organomegaly. Extremities: No clubbing, cyanosis or edema. +2 pedal pulses bilaterally. Skin: Warm and dry. Results & Data Vital Signs (Past 12 Hours) Vital Signs Temp Pulse Pulse Pulse Resp BP Pulse Ox 01/08/20 12:30 36.2 C L 59 L 18 129/52 L 99 01/08/20 07:30 36.7 C 50 L 54 L 20 128/57 L 97 01/08/20 04:33 36.5 C 55 L 19 100/67 97
--- NOTE | 2020-01-08 14:03 | Hospitalist Progress Note ---
Date of Service January 08, 2020 Assessment & Plan (1) Chest pain: Status post cardiac nuclear stress test, negative for stress-induced ischemia Patient's presentation with chest pain is very less likely secondary to coronary artery disease Patient did not had any reproducible chest discomfort or chest pain during nuclear stress test Presented with chest discomfort, Symptom has resolved since admission, with no recurrence Appreciate input from cardiology, Patient denies of any orthopnea no shortness of breath or dyspnea on exertion Stable to be discharged home today (2) Hypertension: Stable -Continue carvedilol, amlodipine, hydralazine left arm dry skin : possible eczema pt reports of increased itching no other similar rash in other part of body ordered for topical steroid apply moisturizer out pt follow up with Dermatology (3) CKD (chronic kidney disease), stage IV: CKD IV and early V. Has fistula. Not on dialysis yet. Follows with Dr Jay Cr: 4.4. Baseline ~3.9-4) -Monitor renal functions -Avoid nephrotoxic agents when possible (4) PAD (peripheral artery disease): S/P stent to LLE in [place] by Dr Mcneill Continue aspirin and Plavix (5) Diabetes mellitus, type 2: A1c: 5.7 on -Hold glimepiride, Tradjenta Insulin sliding scale Appreciate input from consumer educator, patient had multiple episode hypoglycemic/low blood sugar at home Given advanced CKD, poor renal clearance-glimepiride possible can contribute to hypoglycemic episode Glimepiride will be discontinued on discharge/because high risk for hypoglycemia Continue tradjenta Follow up with family physician for blood glucose monitoring/ diabetic managemen t (6) Chronic anemia: H/H: 8.2/26 (baseline Hgb 8-9) -Monitor CBC (7) BPH (benign prostatic hyperplasia): -Continue finasteride, tamsulosin (8) Gastritis: History EGD 12/29/2019: Erosive gastritis/duodenitis, nonbleeding AVM that was clipped Denies melena, hematochezia, abdominal pain -Continue PPI (9) Tobacco abuse: -Smoking cessation strongly encouraged High risk of progression of coronary artery disease, peripheral vascular disease with ongoing nicotine exposure/smoking DVT Prophylaxis -SCDs Disposition: Stable to be discharged home today Admission and Anticipated Discharge Date Admission Date: January 06, 2020 Anticipated date of discharge: 01/08/20 Subjective Patient seen and examined states he feels well. No further events of chest pain overnight and denies any shortness of breath, palpitations, lightheadedness, dizziness or syncope. nuclear cardiac stress test negative stable to be discharged home today Review of Systems Integumentary: + dry skin (dry plaque on left mid arm) Physical Exam Constitutional: WD/WN, vitals as above no acute distress Eyes: PERRL, conjunctivae normal, anicteric sclerae ENMT: external ear and nose normal, oropharynx normal Neck: trachea midline, no thyromegaly Respiratory: normal respiratory effort, lungs clear to auscultation Cardiovascular: RRR, no murmur, no edema Gastrointestinal (Abdomen): normal bowel sounds, soft, nontender, no hepatosplenomegaly Musculoskeletal: no cyanosis or clubbing, extremities motor strength 5/5 Skin: + dry skin (area of dry skin /eczematoid lesion on left middle arm ) Neurologic: PERRL, EOMI, accommodation nl, no face palsy, no dysarthria Psychiatric: A+Ox3, euthymic affect Results & Data [facility]) Vital Signs (Past 12 Hours) Vital Signs Temp Pulse Pulse Pulse Resp BP Pulse Ox 01/08/20 12:30 36.2 C L 59 L 18 129/52 L 99 01/08/20 07:30 36.7 C 50 L 54 L 20 128/57 L 97 01/08/20 04:33 36.5 C 55 L 19 100/67 97
--- NOTE | 2020-01-08 23:52 | Discharge Summary ---
Date of Service January 08, 2020 Admission HPI Per Admitting Provider Pt is 74 y/o M with PMH DM II, CKD IV/V, has AV fistula, not on dialysis yet, chronic anemia, HTN, HLD, PVD s/p stent, tobacco abuse, gastritis, presented to ER with complaint of intermittent chest pain x 1 month. Patient states for the past month he has been having anterior chest pain with walking with associated shortness of breath and discomfort to left jaw. Reports when symptoms occur he sits and rests and symptoms resolve in approximately 20 minutes. Denies any current CP. Denies diaphoresis, dizziness, palpitations. Patient states he is still taking Plavix daily secondary to PVD however stopped taking it approximately 1 month ago secondary to bleeding of skin after scratching. He reports had stent to left leg at [facility] by Dr Mcneill, thinks approx 1.5 years ago. Denies fever/chills, diaphoresis, N/V/D/C, DOW, dizziness, syncope, vision changes, neck pain, orthopnea, cough, sore throat, choking, otalgia, rhinorrhea, abdominal pain, paresthesias, weakness, extremity edema, rashes, urinary symptoms, melena, hematochezia. History EGD 12/29/2019: Erosive gastritis/duodenitis, nonbleeding AVM that was clipped Principal Diagnosis Chest pain, no evidence of any acute coronary or cardiac event Cardiac stress test negative eczema on left arm Discharge Exam Constitutional WD/WN, vitals as above no acute distress Eyes PERRL, conjunctivae normal, anicteric sclerae ENMT external ear and nose normal, oropharynx normal Neck trachea midline, no thyromegaly Respiratory normal respiratory effort, lungs clear to auscultation Cardiovascular RRR, no murmur, no edema Gastrointestinal (Abdomen) normal bowel sounds, soft, nontender, no hepatosplenomegaly Musculoskeletal no cyanosis or clubbing, extremities motor strength 5/5 Skin no rashes, warm and dry + dry skin (area of dry skin /eczematoid lesion on left middle arm ) Neurologic PERRL, EOMI, accommodation nl, no face palsy, no dysarthria Psychiatric A+Ox3, euthymic affect Discharge Data Allergies Allergy/AdvReac Type Severity Reaction Status Date / Time No Known Allergies Allergy Verified 01/06/20 18:08 Consultations 01/06/20 17:36 ED Decision to Admit Stat 01/06/20 20:05 Consult Case Management - Discharge Planning Routine 01/07/20 08:00 Consult Cardiology Routine Hospital Course (1) Chest pain: Status post cardiac nuclear stress test, negative for stress-induced ischemia Patient's presentation with chest pain is very less likely secondary to coronary artery disease Patient did not had any reproducible chest discomfort or chest pain during nuclear stress test Presented with chest discomfort, Symptom has resolved since admission, with no recurrence Appreciate input from cardiology, Patient denies of any orthopnea no shortness of breath or dyspnea on exertion Stable to be discharged home today (2) Hypertension: Stable -Continue carvedilol, amlodipine, hydralazine left arm dry skin : possible eczema pt reports of increased itching no other similar rash in other part of body ordered for topical steroid apply moisturizer out pt follow up with Dermatology (3) CKD (chronic kidney disease), stage IV: CKD IV and early V. Has fistula. Not on dialysis yet. Follows with Dr Jay Cr: 4.4. Baseline ~3.9-4) -Monitor renal functions -Avoid nephrotoxic agents when possible (4) PAD (peripheral artery disease): S/P stent to LLE in [facility] by Dr Mcneill Continue aspirin and Plavix (5) Diabetes mellitus, type 2: A1c: 5.7 on -Hold glimepiride, Tradjenta Insulin sliding scale Appreciate input from museum informatics specialist, patient had multiple episode hypogl ycemic/low blood sugar at home Given advanced CKD, poor renal clearance-glimepiride possible can contribute to hypoglycemic episode Glimepiride will be discontinued on discharge/because high risk for hypoglycemia Continue tradjenta Follow up with family physician for blood glucose monitoring/ diabetic management (6) Chronic anemia: H/H: 8.2/26 (baseline Hgb 8-9) -Monitor CBC (7) BPH (benign prostatic hyperplasia): -Continue finasteride, tamsulosin (8) Gastritis: History EGD 12/29/2019: Erosive gastritis/duodenitis, nonbleeding AVM that was clipped Denies melena, hematochezia, abdominal pain -Continue PPI (9) Tobacco abuse: -Smoking cessation strongly encouraged High risk of progression of coronary artery disease, peripheral vascular disease with ongoing nicotine exposure/smoking DVT Prophylaxis -SCDs Disposition: Stable to be discharged home today Total Time Total Time Spent Total Time Spent (In Minutes): 35 mins Total Time Includes: Examination of the Patient, Discharge Planning and Medication Reconciliation Discharge Plan Discharge Items Patient Disposition: Home - Self-Care Reason For Visit: CHEST PAIN Discharge Diagnosis: Chest pain, no evidence of any acute coronary or cardiac event Cardiac stress test negative eczema on left arm Activity: Resume your previous activity Non-emergency contact: Primary Care Provider Call non-emergency contact if: you have any medication questions Follow-up/Referrals: Laron Peña MD [Primary Care Provider] - 01/12/20 2:45 pm Diet: Carb Consistent or DM2 and Heart Healthy Addtl Attending Provider Instructions: Your cardiac stress test was negative CHANGE IN YOUR MEDICATION: DO NOT TAKE GLIMEPERIDE CONTINUE TO TAKE NORVASC 10 MG DAILY HOSPITAL FOLLOW UP WITH DR BACK ON Sunday01/12/20 @ 2 : 45 PM Routine cardiology follow-up as scheduled follow up with Dermatology for eczema /rash on left arm please use moisturizer lotion at the affected area 2-3 times daily can use topical Benadryl cream as need for itching -over the counter apply topical steroid cream twice daily Pending Studies at Discharge: No Stand-Alone Forms: My [facility] [employer], Smoking Cessation Medications and DC Order Prescriptions: New amlodipine 10 mg Tablet 10 mg PO HS Qty: 30 RF: 0 triamcinolone acetonide 0.1 % cream 1 appln TOP BID Qty: 15 RF: 2 Benadryl Extra Strength 2-0.1 % cream 1 appln TOP TID PRN (Reason: itching) Qty: 28.3 RF: 0 Continued atorvastatin 40 mg Tablet 40 mg PO QPM RF: 0 carvedilol 12.5 mg Tablet 12.5 mg PO BID RF: 0 citalopram 40 mg Tablet 40 mg PO QPM RF: 0 hydralazine 25 mg Tablet 75 mg PO BID RF: 0 tamsulosin 0.4 mg Capsule 0.4 mg PO HS RF: 0 dicyclomine 10 mg Capsule 10 mg PO TID RF: 0 finasteride 5 mg Tablet 5 mg PO HS RF: 0 cholecalciferol (vitamin D3) [Vitamin D3] 1,000 unit (25 mcg) Tablet 1,000 unit PO QAM RF: 0 Tradjenta 5 mg Tablet 5 mg PO QAM RF: 0 albuterol sulfate 90 mcg/actuation HFA aerosol inhaler 2 puff inhalation Q6H PRN (Reason: Shortness Of Breath Or Wheezing) RF: 0 loratadine 10 mg tablet 10 mg PO DAILY PRN (Reason: Itching) RF: 0 aspirin 81 mg Tablet,Delayed Release (Dr/Ec) 81 mg PO QAM RF: 0 pantoprazole 40 mg tablet,delayed release (DR/EC) 40 mg PO QAM RF: 0 clopidogrel 75 mg tablet 75 mg PO DAILY RF: 0 Discontinued glimepiride 4 mg Tablet 4 mg PO QAM RF: 0 Discharge Orders: Discharge Order (Routine); Ordered 01/08/20 Ordered By: Rosa Whitehead Admission Data Admit Date/Time: 01/06/20 18:25 Attending Provider: Rosa Whitehead Admit Provider: Sue Crabtree Primary Care Provider: Laron Peña Other Providers: Sue Crabtree ; Orion Duarte Other Interventions: Discharge Summary Assessment (RN) Last Done: 01/08/20 14:08 DC Date/Time DO NOT enter until pt leaves facility: 01/08/20 14:48
== END 2020-01-08 14:48 | disposition home or self-care (01) ==
LOC: 2S 15:29 → ED 15:29 → SUATTDRO 18:25 → 2S 19:10

== ENCOUNTER 2020-01-12 07:12 | Inpatient (IN) ==
[2020-01-12] MEDS ORDERED: GI COCKTAIL ED USE PO ONE (07:37)
[2020-01-12] MEDS ORDERED: ALBUT/IPRATROP 3MG/0.5MG NEB 3 ML VIAL NEB STA (07:37)
[2020-01-12 07:46] LABS: Basophils # (auto) 0.03 K/uL (0-0.2); Basophils % (auto) 0.2 %; Eosinophils # (auto) 0.74 K/uL (0-0.5); Eosinophils % (auto) 5.3 %; Hematocrit (blood only) 27.4 % (42-52); Hemoglobin 8.4 g/dL (14.0-18.0); Immature Granulocytes # (auto) 0.04 K/uL (0.00-0.02); Immature Granulocytes % (auto) 0.3 %; Lymphocytes # (auto) 0.85 K/uL (1.2-3.4); Lymphocytes % (auto) 6.1 %; Mean Corpuscular Hemoglobin 29.4 pg (25-34); Mean Corpuscular Hgb Conc 30.7 g/dL (32-36); Mean Corpuscular Volume 95.8 fL (80-100); Mean Platelet Volume 10.7 fL (7.4-10.4); Monocytes # (auto) 1.06 K/uL (0.11-0.59); Monocytes % (auto) 7.6 %; Neutrophils # (auto) 11.14 K/uL (1.4-6.5); Neutrophils % (auto) 80.5 %; Platelet Count 237 K/uL (130-400); RDW Coefficient of Variation 13.4 % (11.5-14.5); RDW Standard Deviation 46.7 fL (36.4-46.3); Red Blood Count 2.86 M/uL (4.7-6.1); White Blood Count 13.86 K/uL (4.8-10.8)
[2020-01-12 07:56] LABS: INR 1.1 (0.9-1.1); Partial Thromboplastin Time 26.7 Seconds (21.0-31.0); Prothrombin Time 11.3 Seconds (9.0-12.0)
--- NOTE | 2020-01-12 08:04 | XRay Report ---
XR chest 1V portable CLINICAL HISTORY: 74 years-old Male presenting with Chest Pain. TECHNIQUE: Portable upright AP view of the chest was obtained. COMPARISON: 01/06/2020. FINDINGS: Atherosclerosis of the aortic arch. Cardiac silhouette enlarged. Mild pulmonary vascular prominence. Interstitial prominence. Added density of the lung bases. Small bilateral pleural effusions. No pneum othorax. Degenerative changes of the thoracic spine. Upper abdomen normal. IMPRESSION: 1. Cardiomegaly with worsening volume overload and congestive change. 2. Mild pulmonary edema is new from prior. Differential consideration includes aspiration. 3. Small bilateral pleural effusions new from prior. ACT 112: Negative or not required by law. Electronically signed by: Chase Cantrell M.D. 01/12/2020 8:03 AM
[2020-01-12 08:15] LABS: Albumin Globulin Ratio 0.9 (0.9-2); Albumin Level 3.6 gm/dl (3.4-5.0); BUN Creatinine Ratio 14.8 (10-20); Bilirubin,Total 0.6 mg/dl (0.2-1); Creatinine Clr Calc Pharmacy 12.6 ml/min; Est GFR (African American) 12.1; Est GFR (Non-African American) 10.4; Globulin 3.9 gm/dl (2.5-4.0); Potassium 5.2 mmol/L (3.5-5.1); Total Protein 7.5 gm/dl (6.4-8.2); Troponin I 0.035 ng/ml (0-0.045)
--- NOTE | 2020-01-12 08:26 | Emergency Department Note ---
Entered by Haven Leon acting as a scribe for Todd Mccall MD History of Present Illness General Chief complaint: Shortness of Breath/Dyspnea Stated complaint: breathing diff. Time Seen by Provider: 01/12/20 07:25 Source: patient Mode of arrival: EMS History of Present Illness Onset (ago): month(s) 1 Location: left (lung) and right (lung) Severity: similar to prior episodes Pain Consistency: + intermittent Quality: + other (shortness of breath) Relieved By: + other (inhaler) Exacerbated By: not by other (deep breathing) Associated symptoms: + chest pain, + shortness of breath and + other (Positive lower extremity swelling. Negative abdominal pain, black or bloody stool.); no nausea/vomiting Treatments prior to arrival: other (Albuterol inhaler, Duoneb) The patient is a 74 year old male presenting to the Emergency Department via EMS complaining of intermittent shortness of breath starting 1 month ago. The patient reports that he has been short of breath for the past month. He states that he currently has chest pain. 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 He notes that both of his legs seem swollen. He adds that deep breathing doesnt worsen his symptoms. The patient reports that he has experienced these symptoms before and was admitted to the hospital about 1 week ago for similar symptoms. He states that he used his inhaler LIVING SUPERVISOR that slightly improved his shortness of breath. He notes that regularly smokes cigarettes daily. He adds that he received a Duoneb and Albuterol inhaler from EMS LIVING SUPERVISOR. The patient denies nausea, vomiting, abdominal pain, black or bloody stool and recent travel. Home Medications Home Medications Medication Instructions Recorded Confirmed Type Tradjenta 5 mg PO QAM 07/31/19 01/12/20 History atorvastatin 40 mg PO QPM 07/31/19 01/12/20 History carvedilol 12.5 mg PO BIDM 07/31/19 01/12/20 History cholecalciferol (vitamin D3) 1,000 unit PO QAM 07/31/19 01/12/20 History [Vitamin D3] citalopram 40 mg PO QPM 07/31/19 01/12/20 History dicyclomine 10 mg PO TID 07/31/19 01/12/20 History finasteride 5 mg PO HS 07/31/19 01/12/20 History hydralazine 75 mg PO BID 07/31/19 01/12/20 History tamsulosin 0.4 mg PO HS 07/31/19 01/12/20 History albuterol sulfate 2 puff INHALATION Q6H PRN 12/16/19 01/12/20 History loratadine 10 mg PO DAILY PRN 12/16/19 01/12/20 History aspirin 81 mg PO QAM 01/06/20 01/12/20 History pantoprazole 40 mg PO QAM 01/06/20 01/12/20 History amlodipine 10 mg PO HS #30 tab 01/08/20 01/12/20 Rx diphenhydramine-zinc acetate 1 appln TOP TID PRN #28.3 gm 01/08/20 01/12/20 Rx [Benadryl Extra Strength] triamcinolone acetonide 1 appln TOP BID #15 gm 01/08/20 01/12/20 Rx Allergies Allergy/AdvReac Type Severity Reaction Status Date / Time No Known Allergies Allergy Verified 01/12/20 08:02 Past Med/Surg History Medical History Anxiety and depression BPH (benign prostatic hyperplasia) Chronic anemia CKD (chronic kidney disease), stage IV Diabetes mellitus, type 2 Hyperlipidemia Hypertension Osteoarthritis PAD (peripheral artery disease) Tobacco abuse Surgical History Cardiac murmur History of cataract surgery RT/LEFT History of cholecystectomy History of colonoscopy History of esophagogastroduodenoscopy (EGD) History of procedure for peripheral vascular disease LEFT LEG (STENT PLACED/REASON FOR TAKING PLAVIX) History of tooth extraction Family History Brother Cancer Social History Preferred Language: Croatian 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 and A total of 10 systems reviewed and were otherwise negative Physical Exam Vital Signs Vital Signs - 24 hr 01/12/20 07:21 01/12/20 07:23 01/12/20 07:30 Temperature 36.6 C Temperature Source Oral Pulse Rate 79 80 78 Pulse Rate [Right Finger] Pulse Rate from SpO2 Sensor 79 80 80 Pulse Rhythm Respiratory Rate 24 22 25 H Respiratory Effort / Characteristics Spontaneous Accessory Muscle Use Labored Respiratory Depth Respiratory Pattern Blood Pressure 172/71 H 145/78 H 170/77 H Blood Pressure Mean 111 100 129 Pulse Oximetry 96 95 94 Oxygen Delivery Method Nasal Cannula Room Air Oxygen Flow Rate 2 Sepsis Recent Fever Within 48 Hours No Sepsis Action Taken by Nursing No Action Required Oxygen Flow Rate - Titration Pulse Oximetry Post Tiitration 01/12/20 07:31 01/12/20 08:00 01/12/20 08:01 Temperature Temperature Source Pulse Rate 79 77 76 Pulse Rate [Right Finger] Pulse Rate from SpO2 Sensor 78 78 76 Pulse Rhythm Respiratory Rate 21 19 26 H Respiratory Effort / Characteristics Respiratory Depth Respiratory Pattern Blood Pressure 163/90 H Blood Pressure Mean 105 Pulse Oximetry 95 86 L 92 Oxygen Delivery Method Oxygen Flow Rate Sepsis Recent Fever Within 48 Hours Sepsis Action Taken by Nursing Oxygen Flow Rate - Titration Pulse Oximetry Post Tiitration 01/12/20 08:03 01/12/20 08:11 01/12/20 08:30 Temperature Temperature Source Pulse Rate 78 77 Pulse Rate [Right Finger] 78 Pulse Rate from SpO2 Sensor 77 Pulse Rhythm Regular Respiratory Rate 20 26 H Respiratory Effort / Characteristics Spontaneous Accessory Muscle Use Labored Short of Breath SOB on Exertion Respiratory Depth Normal Respiratory Pattern Tachypnea Blood Pressure 147/65 H Blood Pressure Mean 106 Pulse Oximetry 93 88 L 92 Oxygen Delivery Method Room Air Nasal Cannula Oxygen Flow Rate 2 Sepsis Recent Fever Within 48 Hours Sepsis Action Taken by Nursing Oxygen Flow Rate - Titration 2 Pulse Oximetry Post Tiitration 96 01/12/20 09:00 01/12/20 09:01 01/12/20 09:30 Temperature Temperature Source Pulse Rate 77 77 77 Pulse Rate [Right Finger] Pulse Rate from SpO2 Sensor Pulse Rhythm Respiratory Rate 28 H 26 H 24 Respiratory Effort / Characteristics Respiratory Depth Respiratory Pattern Blood Pressure 153/118 H 183/71 H Blood Pressure Mean 124 97 Pulse Oximetry Oxygen Delivery Method Oxygen Flow Rate Sepsis Recent Fever Within 48 Hours Sepsis Action Taken by Nursing Oxygen Flow Rate - Titration Pulse Oximetry Post Tiitration 01/12/20 09:54 Temperature Temperature Source Pulse Rate 80 Pulse Rate [Right Finger] Pulse Rate from SpO2 Sensor 79 Pulse Rhythm Respiratory Rate 23 Respiratory Effort / Characteristics Respiratory Depth Respiratory Pattern Blood Pressure 166/78 H Blood Pressure Mean 121 Pulse Oximetry 93 Oxygen Delivery Method Oxygen Flow Rate Sepsis Recent Fever Within 48 Hours Sepsis Action Taken by Nursing Oxygen Flow Rate - Titration Pulse Oximetry Post Tiitration General: Chronically-ill appearing older male resting comfortably on supple mental oxygen. HEENT: Normal cephalic atraumatic. Pupils are equal round and reactive to light. Extraocular movements are intact. Oropharynx is pink with moist mucous membranes. No swelling of the mouth lips or tongue. Neck: Supple with a midline trachea. No meningeal signs or stiffness, no JVD or bruits. No Stridor. Chest: Clear to auscultation bilaterally. No wheezes or rhonchi. No increased wo rk of breathing. Heart: regular rate and rhythm. Abdomen: Minimally tender in epigastric area. Soft, nondistended without rebound guarding or rigidity. Extremities: Trace pedal edema bilaterally. Fistula in right arm. No calf tenderness or asymmetry Spine/Back. Non tender to palpation. No CVA tenderness Skin: Good turgor without rashes. Neurologic exam: Cranial nerves two through 12 are intact. Motor and sensation are intact and symmetrical throughout. Course Course 0726: The patient was evaluated in room B3B, and a complete history and physical examination were performed. 0731: EMR reviewed. The patient had a stress test within the past week. It was negative for ischemia. He also had a recent endoscopy on 12/29/2019 showed gastritis and a non-bleeding polyp that was clipped. 0916: I discussed the patients case with Negra Martinez PA[facility]C. [facility]. Administered Medications Heparin Sodium (Porcine) (Heparin Sodium (Porcine)) 5,000 units SQ Q8 RANDY Stop: 02/11/20 13:59 Last Admin: 01/12/20 14:41 Dose: 5,000 units Documented by: [id number] Cosigned by: [id number] Insulin Aspart (Novolog Flexpen) 0 units SC ACHS RANDY Stop: 02/11/20 11:29 Last Admin: 01/12/20 12:32 Dose: 1 units Documented by: [id number] Cosigned by: [id number] Levalbuterol HCl (Xopenex 1.25mg/0.5ml Neb) 1.25 mg NEB Q4R RANDY Stop: 02/11/20 11:59 Last Admin: 01/12/20 14:59 Dose: 1.25 mg Documented by: [id number] Admin: 01/12/20 11:15 Dose: Not Given Documented by: [id number] Levalbuterol HCl (Xopenex 1.25mg/3ml Neb) 1.25 mg NEB Q2R PRN PRN Reason: wheeze Stop: 02/11/20 10:38 Last Admin: 01/12/20 13:22 Dose: 1.25 mg Documented by: [id number] Discontinued Medications Al Hydrox/Mg Hydrox/Simethicone () 1 dose PO ONE ONE Stop: 01/12/20 07:38 Last Admin: 01/12/20 08:10 Dose: 1 dose Documented by: [id number] Albuterol (Duoneb) 3 ml NEB NOW STA Stop: 01/12/20 07:38 Last Admin: 01/12/20 08:02 Dose: 3 ml Documented by: [id number] Aspirin (Ecotrin Ectab) 81 mg PO QAM [facility] Stop: 02/11/20 11:59 Last Admin: 01/12/20 12:31 Dose: 81 mg Documented by: [id number] Furosemide (Lasix) 40 mg IV NOW STA Stop: 01/12/20 09:48 Last Admin: 01/12/20 11:54 Dose: Not Given Documented by: [id number] Furosemide (Lasix) 40 mg IV NOW STA Stop: 01/12/20 10:41 Last Admin: 01/12/20 11:55 Dose: Not Given Documented by: [id number] Hydralazine HCl (Hydralazine Hcl) 10 mg IV NOW STA Stop: 01/12/20 11:45 Last Admin: 01/12/20 12:31 Dose: 10 mg Documented by: [id number] Furosemide 80 mg/ Syringe 8 mls @ 4 mls/min IV ONE ONE Stop: 01/12/20 11:46 Last Admin: 01/12/20 11:54 Dose: 4 mls/min Documented by: [id number] Levalbuterol HCl (Xopenex 1.25mg/0.5ml Neb) 1.25 mg NEB Q4 RANDY Stop: 02/11/20 11:59 Last Admin: 01/12/20 10:59 Dose: 1.25 mg Documented by: [id number] Levalbuterol HCl (Xopenex 1.25mg/3ml Neb) 1.25 mg NEB Q2H PRN PRN Reason: wheeze Stop: 02/11/20 10:44 Last Admin: 01/12/20 10:57 Dose: 1.25 mg Documented by: [id number] Morphine Sulfate (Morphine Sulfate) Confirm Administered Dose 2 mg .ROUTE .STK- MED ONE Stop: 01/12/20 14:25 Last Admin: 01/12/20 14:28 Dose: 1 mg Documented by: [id number] Morphine Sulfate (Morphine Sulfate) Confirm Administered Dose 2 mg .ROUTE .STK- MED ONE Stop: 01/12/20 14:26 Last Admin: 01/12/20 14:29 Dose: Not Given Documented by: [id number] Medical Decision Making Differential Diagnosis Differential diagnoses include gastritis, cardiac disease, pulmonary disease, COPD exacerbation, influenza and electrolyte or metabolic abnormality amongst others. Medical Records Attestation: I reviewed the patient's medical records. Home Medications Current Medication List: was personally reviewed by me Laboratory Data Attestation: I reviewed the patient's lab results. Result diagrams: 01/12/20 07:04 01/12/20 07:04 Lab Results 01/12/20 01/12/20 01/12/20 Range/Units 07:04 07:04 07:04 WBC 13.86 H (4.8-10.8) K/uL RBC 2.86 L (4.7-6.1) M/uL Hgb 8.4 L (14.0-18.0) g/dL Hct 27.4 L (42-52) % MCV 95.8 (80-100) fL MCH 29.4 (25-34) pg MCHC 30.7 L (32-36) g/dL RDW Std Deviation 46.7 H (36.4-46.3) fL RDW Coeff of Danny 13.4 (11.5-14.5) % Plt Count 237 (130-400) K/uL MPV 10.7 H (7.4-10.4) fL Immature Gran % (Auto) 0.3 % Neut % (Auto) 80.5 % Lymph % (Auto) 6.1 % Duval % (Auto) 7.6 % Eos % (Auto) 5.3 % Baso % (Auto) 0.2 % Immature Gran # (Auto) 0.04 H (0.00-0.02) K/uL Neut # (Auto) 11.14 H (1.4-6.5) K/uL Lymph # (Auto) 0.85 L (1.2-3.4) K/uL Duval # (Auto) 1.06 H (0.11-0.59) K/uL Eos # (Auto) 0.74 H (0-0.5) K/uL Baso # (Auto) 0.03 (0-0.2) K/uL PT 11.3 (9.0-12.0) Seconds INR 1.1 (0.9-1.1) APTT 26.7 (21.0-31.0) Seconds PTT Ratio 1.0 ABG pH ABG pCO2 ABG pO2 ABG HCO3 ABG O2 Saturation ABG Base Excess Juaquin Test Barometric Pressure Oxygen Given Sodium 138 (136-145) mmol/L Potassium 5.2 H (3.5-5.1) mmol/L Chloride 111 H (98-107) mmol/L Carbon Dioxide 16 L (21-32) mmol/L Anion Gap 11.0 (3-11) BUN 74 H (7-18) mg/dl Creatinine 4.99 H* (0.6-1.4) mg/dl Est Cr Clr Drug Dosing 12.6 ml/min Est GFR ( Amer) 12.1 Est GFR (Non-Af Amer) 10.4 BUN/Creatinine Ratio 14.8 (10-20) Glucose 151 H (70-99) mg/dl Lactate (0.4-2.0) mmol/L Calcium 9.0 (8.5-10.1) mg/dl Total Bilirubin 0.6 (0.2-1) mg/dl AST 17 (15-37) U/L ALT 48 (12-78) U/L Alkaline Phosphatase 90 (45-117) U/L Troponin I 0.035 (0-0.045) ng/ml NT-Pro-B Natriuret Pep (0-1800) pg/ml Total Protein 7.5 (6.4-8.2) gm/dl Albumin 3.6 (3.4-5.0) gm/dl Globulin 3.9 (2.5-4.0) gm/dl Albumin/Globulin Ratio 0.9 (0.9-2) Lipase 157 (73-393) U/L Procalcitonin (0-0.5) ng/ml Influenza Type A (PCR) (Neg) Influenza Type B (PCR) (Neg) 01/12/20 01/12/20 01/12/20 Range/Units 07:04 07:04 08:05 WBC (4.8-10.8) K/uL RBC (4.7-6.1) M/uL Hgb (14.0-18.0) g/dL Hct (42-52) % MCV (80-100) fL MCH (25-34) pg MCHC (32-36) g/dL RDW Std Deviation (36.4-46.3) fL RDW Coeff of Danny (11.5-14.5) % Plt Count (130-400) K/uL MPV (7.4-10.4) fL Immature Gran % (Auto) % Neut % (Auto) % Lymph % (Auto) % Duval % (Auto) % Eos % (Auto) % Baso % (Auto) % Immature Gran # (Auto) (0.00-0.02) K/uL Neut # (Auto) (1.4-6.5) K/uL Lymph # (Auto) (1.2-3.4) K/uL Duval # (Auto) (0.11-0.59) K/uL Eos # (Auto) (0-0.5) K/uL Baso # (Auto) (0-0.2) K/uL PT (9.0-12.0) Seconds INR (0.9-1.1) APTT (21.0-31.0) Seconds PTT Ratio ABG pH ABG pCO2 ABG pO2 ABG HCO3 ABG O2 Saturation ABG Base Excess Juaquin Test Barometric Pressure Oxygen Given Sodium (136-145) mmol/L Potassium (3.5-5.1) mmol/L Chloride (98-107) mmol/L Carbon Dioxide (21-32) mmol/L Anion Gap (3-11) BUN (7-18) mg/dl Creatinine (0.6-1.4) mg/dl Est Cr Clr Drug Dosing ml/min Est GFR ( Amer) Est GFR (Non-Af Amer) BUN/Creatinine Ratio (10-20) Glucose (70-99) mg/dl Lactate (0.4-2.0) mmol/L Calcium (8.5-10.1) mg/dl Total Bilirubin (0.2-1) mg/dl AST (15-37) U/L ALT (12-78) U/L Alkaline Phosphatase (45-117) U/L Troponin I (0-0.045) ng/ml NT-Pro-B Natriuret Pep 4720 H (0-1800) pg/ml Total Protein (6.4-8.2) gm/dl Albumin (3.4-5.0) gm/dl Globulin (2.5-4.0) gm/dl Albumin/Globulin Ratio (0.9-2) Lipase (73-393) U/L Procalcitonin 0.24 (0-0.5) ng/ml Influenza Type A (PCR) Neg for Influ A (Neg) Influenza Type B (PCR) Neg for Influ B (Neg) 01/12/20 01/12/20 Range/Units 09:40 09:40 WBC (4.8-10.8) K/uL RBC (4.7-6.1) M/uL Hgb (14.0-18.0) g/dL Hct (42-52) % MCV (80-100) fL MCH (25-34) pg MCHC (32-36) g/dL RDW Std Deviation (36.4-46.3) fL RDW Coeff of Danny (11.5-14.5) % Plt Count (130-400) K/uL MPV (7.4-10.4) fL Immature Gran % (Auto) % Neut % (Auto) % Lymph % (Auto) % Duval % (Auto) % Eos % (Auto) % Baso % (Auto) % Immature Gran # (Auto) (0.00-0.02) K/uL Neut # (Auto) (1.4-6.5) K/uL Lymph # (Auto) (1.2-3.4) K/uL Duval # (Auto) (0.11-0.59) K/uL Eos # (Auto) (0-0.5) K/uL Baso # (Auto) (0-0.2) K/uL PT (9.0-12.0) Seconds INR (0.9-1.1) APTT (21.0-31.0) Seconds PTT Ratio ABG pH Cancelled ABG pCO2 Cancelled ABG pO2 Cancelled ABG HCO3 Cancelled ABG O2 Saturation Cancelled ABG Base Excess Cancelled Juaquin Test Cancelled Barometric Pressure Cancelled Oxygen Given Cancelled Sodium (136-145) mmol/L Potassium (3.5-5.1) mmol/L Chloride (98-107) mmol/L Carbon Dioxide (21-32) mmol/L Anion Gap (3-11) BUN (7-18) mg/dl Creatinine (0.6-1.4) mg/dl Est Cr Clr Drug Dosing ml/min Est GFR ( Amer) Est GFR (Non-Af Amer) BUN/Creatinine Ratio (10-20) Glucose (70-99) mg/dl Lactate 1.1 (0.4-2.0) mmol/L Calcium (8.5-10.1) mg/dl Total Bilirubin (0.2-1) mg/dl AST (15-37) U/L ALT (12-78) U/L Alkaline Phosphatase (45-117) U/L Troponin I (0-0.045) ng/ml NT-Pro-B Natriuret Pep (0-1800) pg/ml Total Protein (6.4-8.2) gm/dl Albumin (3.4-5.0) gm/dl Globulin (2.5-4.0) gm/dl Albumin/Globulin Ratio (0.9-2) Lipase (73-393) U/L Procalcitonin (0-0.5) ng/ml Influenza Type A (PCR) (Neg) Influenza Type B (PCR) (Neg) Imaging Data Radiologist's Impression: Radiology results as stated below per my review and the radiologist's interpretation: XR chest 1V portable CLINICAL HISTORY: 74 years-old Male presenting with Chest Pain. TECHNIQUE: Portable upright AP view of the chest was obtained. COMPARISON: 01/06/2020. FINDINGS: Atherosclerosis of the aortic arch. Cardiac silhouette enlarged. Mild pulmonary vascular prominence. Interstitial prominence. Added density of the lung bases. Small bilateral pleural effusions. No pneumothorax. Degenerative changes of the thoracic spine. Upper abdomen normal. IMPRESSION: 1. Cardiomegaly with worsening volume overload and congestive change. 2. Mild pulmonary edema is new from prior. Differential consideration includes aspiration. 3. Small bilateral pleural effusions new from prior. ACT 112: Negative or not required by law. Electronically signed by: Chase Cantrell M.D. 01/12/2020 8:03 AM ECG Data Attestation: I personally reviewed and interpreted this ECG as follows: Indication: + SOB/dyspnea Rate (beats per minute): 79 Rhythm: + normal sinus ECG Intervals/blocks: + Left anterior fascicular block and + Right Bundle branch block Comparison ECG Date: from (01/07/2020) Change: the following changes noted (Rate is increased otherwise no significant change. ) Blood Pressure Blood Pressure Findings: Elevated blood pressure Blood Pressure Disposition: further management by hospitalist RENETTA Narrative Cardiac Monitoring: An order was placed for continuous cardiac monitoring. The monitor shows a rate of 79 with sinus rhythm. This patient comes in as described above. He was placed in room B3. He is here for treatment and evaluation of epigastric pain and shortness of breath. he has had symptoms like this off and on for about a month. He was admitted about a week ago and had a negative stress test. He is also had a recent upper endoscopy done by Dr. Beaulieu which showed gastritis. The patient does have a history of smoking. He has a history of renal failure he had does have a dialysis fistula which she has not had to use yet. IV access established and blood work was obtained. He was placed on a threat monitoring analyst. His initial O2 sat was low at 80% was placed on oxygen. he was given a DuoNeb. He also given a GI cocktail. I do not think is likely a PE however his creatinine would preclude a CTA he says he has had some swelling in his legs at times so I did do an ultrasound of his legs. His creatinine came back elevated at 4.99 up from 4.1. He also appears to have congestive heart failure on his chest x-ray which is also new. He is hypoxemic. His potassium is mildly elevated 5.2. I am concerned that he is going to need dialysis and will need further treatment and evaluation. I have consulted the [facility] hospitalist to see him in the ER for these measures Impression & Plan CHF (congestive heart failure), Renal failure, Hypoxemia, SOB (shortness of breath), Epigastric abdominal pain Discharge Plan Visit Data *Final* Discharge Date/Time: 01/12/20 10:36 Chief Complaint: Shortness of Breath/Dyspnea Stated Complaint: breathing diff. ED Provider: Todd Mccall Discharge Problem: CHF (congestive heart failure), Renal failure, Hypoxemia, SOB (shortness of breath), Epigastric abdominal pain Patient Disposition: Admitted As Inpatient Discharge Instructions Interventions: ED Discharge Assessment Last Done: 01/12/20 10:36 Discharge Problem: CHF (congestive heart failure) Qualifiers: Heart failure type: unspecified Heart failure chronicity: acute Qualified Code(s): I50.9 - Heart failure, unspecified Renal failure Qualifiers: Renal failure chronicity: acute on chronic Acute renal failure type: unspecified Chronic kidney disease stage: unspecified stage Qualified Code(s): N17.9 - Acute kidney failure, unspecified The scribe's documentation has been prepared under my direction and personally reviewed by me in its entirety. I confirm that the note above accurately reflects all work, treatment, procedures, and medical decision making performed by me.
[2020-01-12 09:19] LABS: Influenza A virus by PCR Neg for Influ A (Neg); Influenza B virus by PCR Neg for Influ B (Neg)
[2020-01-12] MEDS ORDERED: FUROSEMIDE 40 MG/4 ML VIAL IV STA ×2 (09:47→10:40)
--- NOTE | 2020-01-12 10:05 | History & Physical Report ---
Date of Service January 12, 2020 Assessment & Plan (1) Acute respiratory failure with hypoxia: (2) SOB (shortness of breath): (3) CHF (congestive heart failure): This is a chronically ill 74-year-old male who has significant PMH of T2DM, CKD stage V with mature AV fistula currently not on hemodialysis, HTN, HLD, COPD, anemia of chronic disease, PAD status post stent, tobacco abuse, gastritis, AVM with clip, depression who presents to ED secondary to epigastric pain and shortness of breath since 3 AM. In ED patient was hypoxic on arrival saturating in the low 80s. He required O2 supplementation. He was tachypneic but otherwise hemodynamically stable. Notable lab work abnormalities include leukocytosis 13.8 6K, H&H 8.4 and 27.4, platelet 237, sodium 138, K5.2, CO2 16, BUN 74, creatinine 4.99, glucose 151, proBNP 4720, influenza A negative. Chest x-ray revealed cardiomegaly with pulmonary edema and congestive changes compared to prior chest x-ray on 01/05. Also small bilateral pleural effusions are new. EKG revealed normal sinus rhythm with a rate of 79 bpm with bifascicular block. In ED he received albuterol and GI cocktail with minimal improvement. Per current CMS guidelines he does meet SIRS criteria with WBC 13.8 6K, RR 28, he is afebrile and not tachycardic Lactic acid 1.1, procalcitonin 0.24 Sepsis/PNA not likely; sx likely 2/2 to volume overload due to ESRD and CHF Admit to PCU Consult nephrology due to worsening renal function with acute congestive changes on chest x-ray and hypoxia Consult cardiology due to possible exacerbation of diastolic CHF with ESRD Give Lasix 80 mg IV x1 now place on bipap due to persistent tachypnea despite O2 supplementation ABG pending please refer to attending addendum for further details regarding assessment and plan (4) CKD (chronic kidney disease) stage 5, GFR less than 15 ml/min: Baseline creatinine 3.9-4.0 Acute worsening of chronic kidney disease now stage V, BUN/creatinine 74 and 4.99 He has mature left AV fistula, currently not in use Consult nephrology (5) Diabetes mellitus, type 2: Last A1c 5.7 on 12/15/2019 On Tradjenta as outpatient Hold Tradjenta, NovoLog sliding scale per protocol (6) Hypertension: Blood pressure elevated upon arrival, SBP 166 upon my evaluation Likely secondary to tachypnea and hypoxia Continue Coreg and hydralazine (7) PAD (peripheral artery disease): S/P stent to LLE in [place] by Dr. 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 Peña upon discharge Patient was seen and examined in collaboration with Dr. Whitehead, please see addendum History of Present Illness Chief Complaint: Shortness of breath and epigastric pain since 3 AM. Primary Care Provider: Laron Peña MD This is a chronically ill 74-year-old male who has significant PMH of T2DM, CKD stage V with mature AV fistula currently not on hemodialysis, HTN, HLD, COPD, anemia of chronic disease, PAD status post stent, tobacco abuse, gastritis, AVM with clip, depression who presents to ED secondary to epigastric pain and shortness of breath since 3 AM. He awoke at approximately 3 AM with severe stabbing abdominal pain that radiated to the left side of his abdomen that lasted for approximately 15 minutes. This resolved on its own and was associated with shortness of breath, nausea and feeling feverish. He called his daughter stating, "I cannot I cannot." According to the daughter he finally elicited that he was having trouble breathing and therefore he called EMS. Of significance he was recently hospitalized on 01/06/2020 to 01/08/2020 secondary to chest pain. He was seen and evaluated by cardiology and underwent nuclear stress echo. Stress test was negative for inducible ischemia, resting echo revealed EF 60-65%, grade 3 diastolic dysfunction, moderate aortic stenosis without aortic regurg, mild left atrial enlargement. His symptoms improved and he was discharged home in stable condition. He states his baseline weight is approximately 170 but has not weighed himself since discharge. This morning when he woke up he felt very feverish. He denies any coughing, lightheadedness, dizziness, headache, chest pain, palpitations, emesis, diarrhea, dysuria, increased urgency or frequency with urination, hematuria, melena, hematochezia. His last BM was prior to arrival and normal for him. Despite having CKD stage V he feels he is urinating normally and this is unchanged. His appetite is stable for him. He has been taking his medications as prescribed, but did not take them this morning. Also of significance patient recently underwent endoscopic evaluation by GI on 12/29/2019 which revealed erosive gastritis/duodenitis with a nonbleeding AVM which required endovascular clipping. In ED patient was hypoxic on arrival saturating in the low 80s. He required O2 supplementation. He was tachypneic but otherwise hemodynamically stable. Notable lab work abnormalities include leukocytosis 13.8 6K, H&H 8.4 and 27.4, platelet 237, sodium 138, K5.2, CO2 16, BUN 74, creatinine 4.99, glucose 151, proBNP 4720, influenza A negative. Chest x-ray revealed cardiomegaly with pulmonary edema and congestive changes compared to prior chest x-ray on 01/05. Also small bilateral pleural effusions are new. EKG revealed normal sinus rhythm with a rate of 79 bpm with bifascicular block. In ED he received albuterol and GI cocktail with minimal improvement. Allergies Allergy/AdvReac Type Severity Reaction Status Date / Time No Known Allergies Allergy Verified 01/12/20 08:02 Home Medications Home Medications Medication Instructions Recorded Confirmed Type Tradjenta 5 mg PO QAM 07/31/19 01/12/20 History atorvastatin 40 mg PO QPM 07/31/19 01/12/20 History carvedilol 12.5 mg PO BIDM 07/31/19 01/12/20 History cholecalciferol (vitamin D3) 1,000 unit PO QAM 07/31/19 01/12/20 History [Vitamin D3] citalopram 40 mg PO QPM 07/31/19 01/12/20 History dicyclomine 10 mg PO TID 07/31/19 01/12/20 History finasteride 5 mg PO HS 07/31/19 01/12/20 History hydralazine 75 mg PO BID 07/31/19 01/12/20 History tamsulosin 0.4 mg PO HS 07/31/19 01/12/20 History albuterol sulfate 2 puff INHALATION Q6H PRN 12/16/19 01/12/20 History loratadine 10 mg PO DAILY PRN 12/16/19 01/12/20 History aspirin 81 mg PO QAM 01/06/20 01/12/20 History pantoprazole 40 mg PO QAM 01/06/20 01/12/20 History amlodipine 10 mg PO HS #30 tab 01/08/20 01/12/20 Rx diphenhydramine-zinc acetate 1 appln TOP TID PRN #28.3 gm 01/08/20 01/12/20 Rx [Benadryl Extra Strength] triamcinolone acetonide 1 appln TOP BID #15 gm 01/08/20 01/12/20 Rx Past Med/Surg History Medical History Anxiety and depression BPH (benign prostatic hyperplasia) Chronic anemia CKD (chronic kidney disease), stage IV Diabetes mellitus, type 2 Hyperlipidemia Hypertension Osteoarthritis PAD (peripheral artery disease) Tobacco abuse Surgical History Cardiac murmur History of cataract surgery RT/LEFT History of cholecystectomy History of colonoscopy History of esophagogastroduodenoscopy (EGD) History of procedure for peripheral vascular disease LEFT LEG (STENT PLACED/REASON FOR TAKING PLAVIX) History of tooth extraction Family History Brother Cancer Social History (Updated 01/12/20 @ 10:06 by Negra Berger PA-C) Preferred Language: Wallisian Communication Ability: Effective Waterproofer Required: No Beliefs That Will Affect Care: None Current Living Situation: Significant Other Other Information That Helps Us Care for You: No Feels Safe at Home: Yes Safety Concerns: Feels Safe At This Time Smoking Status: Current every day smoker Tobacco Type: cigarettes ; Cigarettes Per Day: 10 ; Second Hand Exposure: No ; Hx Alcohol Use: No Hx Substance Use: No Review of Systems Review of Systems: All systems reviewed & are unremarkable except as noted in HPI & below Physical Exam Physical Exam: Constitutional: Chronically ill-appearing male, WD/WN, vitals as above, tachypnea, sitting up in bed, answers questions appropriately Head: Normocephalic, Atraumatic Eyes: PERRL, conjunctivae normal, anicteric sclerae ENMT: external ear and nose normal, oropharynx normal with dry mucous membranes Neck: trachea midline, no thyromegaly normal visual inspection Respiratory: Tachypneic, lungs clear to auscultation with bibasilar crackles and rhonchi left greater than right, no wheeze. No accessory muscle use Cardiovascular: RRR, 2/6 LUI noted throughout precordium best RUSB, no peripheral edema, left upper extremity AV fistula vessels: no JVD or carotid bruit Chest: normal inspection of chest Abdomen: Protuberant abdomen, normal bowel sounds, soft, nontender, no hepatosplenomegaly Musculoskeletal: no cyanosis or clubbing, extremities motor strength 5/5 Skin: no rashes, warm and dry mild turgor Neurologic: PERRL, EOMI, accommodation nl, no face palsy, no dysarthria CN's II-XI intact bilaterally and moves all extremities Psychiatric: A+Ox3, euthymic affect Lymphatic: no cervical or axillary lymphadenopathy : deferred Results & Data Vital Signs (Past 12 Hours) Vital Signs Temp Pulse Pulse Resp BP Pulse Ox 01/12/20 08:30 77 26 H 147/65 H 92 01/12/20 08:11 78 88 L 01/12/20 08:03 78 20 93 01/12/20 08:01 76 26 H 163/90 H 92 01/12/20 08:00 77 19 86 L 01/12/20 07:31 79 21 95 01/12/20 07:30 78 25 H 170/77 H 94 01/12/20 07:23 36.6 C 80 22 145/78 H 95 01/12/20 07:21 79 24 172/71 H 96 Laboratory Results Short CBC 01/12/20 Range/Units 07:04 WBC 13.86 H (4.8-10.8) K/uL Hgb 8.4 L (14.0-18.0) g/dL Hct 27.4 L (42-52) % Plt Count 237 (130-400) K/uL BMP 01/12/20 07:04 Sodium 138 Potassium 5.2 H Chloride 111 H Carbon Dioxide 16 L BUN 74 H Creatinine 4.99 H* Glucose 151 H Calcium 9.0 Cardiac Enzymes 01/12/20 Range/Units 07:04 Troponin I 0.035 (0-0.045) ng/ml Liver Function 01/12/20 Range/Units 07:04 Total Bilirubin 0.6 (0.2-1) mg/dl AST 17 (15-37) U/L ALT 48 (12-78) U/L Alkaline Phosphatase 90 (45-117) U/L Albumin 3.6 (3.4-5.0) gm/dl Diagnostic Findings CXR: IMPRESSION: 1. Cardiomegaly with worsening volume overload and congestive change. 2. Mild pulmonary edema is new from prior. Differential consideration includes aspiration. 3. Small bilateral pleural effusions new from prior. Medications Administered Discontinued Medications Al Hydrox/Mg Hydrox/Simethicone () 1 dose PO ONE ONE Stop: 01/12/20 07:38 Last Admin: 01/12/20 08:10 Dose: 1 dose Documented by: [id number] Albuterol (Duoneb) 3 ml NEB NOW STA Stop: 01/12/20 07:38 Last Admin: 01/12/20 08:02 Dose: 3 ml Documented by: [id number] ECG Rate (beats per minute): 79 Rhythm: normal sinus Findings: + LAFB, + RBBB and + prolonged QT (qtc 511ms) Code Status & VTE Plan Code Status Full Code VTE Prophylaxis Plan VTE Prophylaxis will be ordered: Yes Supervising Physician Co-Signing Physician Notes Attending addendum: Patient seen and examined with Negra Otero PA-C in the ER room B3 Lab and images reviewed, plan of care discussed with patient, family members, and consulting specialists This is a 74-year-old male with past medical history of type 2 diabetes, stage V CKD has a AV fistula on left arm, not on dialysis yet Peripheral vascular disease status post stent, came to ER with complaint of severe shortness of breath started around 3 AM in the morning, patient woke up from sleep unable to breathe, gasping for air In the ER patient was found to be tachypneic, hypoxic Chest x-ray shows progression of pulmonary congestion with right lower lobe infiltrate Patient was recently discharged from hospital on 01/06/2020, was admitted for chest heaviness discomfort, had a nuclear cardiac stress test which showed negative for stress-induced ischemia, resting echo EF was 60 to 65% no wall motion abnormality Patient reports Since discharge home he continued to feel shortness of breath on activity, which progressively got worse in the last 1 week and significant orthopnea experienced last night Physical exam: General: Elderly male, ill-appearing, noted to be in distress for shortness of breath Neck, no JVD appreciated Lungs: Coarse Rales bibasilar, with scattered wheeze Heart, regular S1-S2, no lower extremity edema noted, no JVD Abdomen: Soft nontender normal bowel sound Neuro: No focal neurological deficit, alert awake oriented x3 Assessment and plan Shortness of breath, acute hypoxemic respiratory failure: Possible secondary to volume overload due to progression of acute on chronic kidney disease, Patient's recent echo a week back showed normal ejection fraction, Gout any acute cardiac event given normal nuclear stress test few days ago Ordered for IV Lasix: Discussed with nephrology Dr. Ferrer recommends to give Lasix 80 mg x 1 now Patient will be seen by nephrology Ordered for Gamble catheter for accurate measurement of intake and output Patient reports he still able to make urine Acute on Chronic CHF with diastolic dysfunction: HFp EF: Normal ejection fraction , with diastolic dysfunction noted in recent echo on 01/07/2020 Presents with volume overload possibly secondary to worsening of renal failure Continue diuresis as per nephrology Fluid restriction 1500 mm a day cardiology consulted Gamble to accurate measurement of intake and output Daily weight Monitor in PCU/telemetry Hyperkalemia: Possible secondary to worsening of kidney function, potassium 5.2 without any acute EKG change Ordered for Lasix, low potassium diet, Repeat BMP at 6 PM Nephrology consulted CKD stage IV/ v Presents with volume overload, creatinine worsening to 4.9 Nephrology consulted-Case discussed with Dr. Candelaria Diuresis with Lasix as outlined above CODE STATUS: Full code DVT prophylaxis subcu heparin Please refer to further documentation by Negra Otero PA-C for discussion of other chronic issues Rosa Whitehead MD
[2020-01-12] MEDS ORDERED: LEVALBUTEROL HCL 1.25 MG/3 ML NEB NEB PRN (10:39)
[2020-01-12] MEDS ORDERED: ACETAMINOPHEN 325 MG TAB PO PRN (10:54)
[2020-01-12] MEDS ORDERED: DiphenhydrAMINE 2%/ZINC 0.1% CREAM 28GM TUBE EXT PRN (10:54)
[2020-01-12] MEDS ORDERED: ALBUTEROL HFA 8 GM INHALER INH PRN (10:54)
[2020-01-12] MEDS ORDERED: DEXTROSE 50% 50 ML SYRINGE IV PRN (10:54)
[2020-01-12] MEDS ORDERED: GLUCAGON FOR INJ 1 MG VIAL SQ PRN (10:54)
[2020-01-12] MEDS ORDERED: GLUCOSE 40% GEL 15 GM TUBE PO PRN (10:54)
[2020-01-12] MEDS ORDERED: MAGNESIUM HYDROXIDE SUSP 30 ML UDC PO PRN (10:54)
[2020-01-12] MEDS ORDERED: POLYETHYLENE (MIRALAX) 17 GM PACK PO PRN (10:54)
[2020-01-12] MEDS ORDERED: ONDANSETRON INJ 2 MG/ML 2 ML VIAL IV PRN (10:54)
[2020-01-12] MEDS ORDERED: ALUMINUM/MAGNESIUM SUSP 30 ML UDC PO PRN (10:54)
[2020-01-12] MEDS ORDERED: LORATADINE 10 MG TAB PO PRN (10:54)
[2020-01-12] MEDS ORDERED: CARBOHYDRATES FOR HYPOGLYCEMIA PO PRN (10:54)
[2020-01-12] MEDS ORDERED: NITROGLYCERIN SL 0.4 MG/TAB TAB SL PRN (10:54)
[2020-01-12] MEDS ORDERED: GLUCOSE 10 TABS/TUBE PO PRN (10:54)
--- NOTE | 2020-01-12 11:01 | Hospitalist Progress Note ---
Date of Service January 12, 2020 Assessment & Plan Admission and Anticipated Discharge Date Admission Date: January 12, 2020 Subjective Attending addendum: Patient seen and examined with Negra Otero PA-C in the ER room B3 Lab and images reviewed, plan of care discussed with patient, family members, and consulting specialists This is a 74-year-old male with past medical history of type 2 diabetes, stage V CKD has a AV fistula on left arm, not on dialysis yet Peripheral vascular disease status post stent, came to ER with complaint of severe shortness of breath started around 3 AM in the morning, patient woke up from sleep unable to breathe, gasping for air In the ER patient was found to be tachypneic, hypoxic Chest x-ray shows progression of pulmonary congestion with right lower lobe infi ltrate Patient was recently discharged from hospital on 01/06/2020, was admitted for chest heaviness discomfort, had a nuclear cardiac stress test which showed negative for stress-induced ischemia, resting echo EF was 60 to 65% no wall motion abnormality Patient reports Since discharge home he continued to feel shortness of breath on activity, which progressively got worse in the last 1 week and significant orthopnea experienced last night Physical exam: General: Elderly male, ill-appearing, noted to be in distress for shortness of breath Neck, no JVD appreciated Lungs: Coarse Rales bibasilar, with scattered wheeze Heart, regular S1-S2, no lower extremity edema noted, no JVD Abdomen: Soft nontender normal bowel sound Neuro: No focal neurological deficit, alert awake oriented x3 Assessment and plan Shortness of breath, acute hypoxemic respiratory failure: Possible secondary to volume overload due to progression of acute on chronic kidney disease, Patient's recent echo a week back showed normal ejection fraction, Gout any acute cardiac event given normal nuclear stress test few days ago Ordered for IV Lasix: Discussed with nephrology Dr. Ferrer recommends to give Lasix 80 mg x 1 now Patient will be seen by nephrology Ordered for Gamble catheter for accurate measurement of intake and output Patient reports he still able to make urine Acute on Chronic CHF with diastolic dysfunction: HFp EF: Normal ejection fraction , with diastolic dysfunction noted in recent echo on 01/07/2020 Presents with volume overload possibly secondary to worsening of renal failure Continue diuresis as per nephrology Fluid restriction 1500 mm a day cardiology consulted Gamble to accurate measurement of intake and output Daily weight Monitor in PCU/telemetry Hyperkalemia: Possible secondary to worsening of kidney function, potassium 5.2 without any acute EKG change Ordered for Lasix, low potassium diet, Repeat BMP at 6 PM Nephrology consulted CKD stage IV/ v Presents with volume overload, creatinine worsening to 4.9 Nephrology consulted-Case discussed with Dr. Candelaria Diuresis with Lasix as outlined above CODE STATUS: Full code DVT prophylaxis subcu heparin Please refer to further documentation by Negra Otero PA-C for discussion of other chronic issues Rosa Whitehead MD Results & Data ([facility]) Vital Signs (Past 12 Hours) Vital Signs Temp Pulse Pulse Resp BP Pulse Ox 01/12/20 10:36 95 01/12/20 10:21 79 28 H 99 01/12/20 10:01 79 28 H 01/12/20 10:00 79 27 H 181/62 H 01/12/20 09:54 80 23 166/78 H 93 01/12/20 09:30 77 24 183/71 H 01/12/20 09:01 77 26 H 01/12/20 09:00 77 28 H 153/118 H 01/12/20 08:30 77 26 H 147/65 H 92 01/12/20 08:11 78 88 L 01/12/20 08:03 78 20 93 01/12/20 08:01 76 26 H 163/90 H 92 01/12/20 08:00 77 19 86 L 01/12/20 07:31 79 21 95 01/12/20 07:30 78 25 H 170/77 H 94 01/12/20 07:23 36.6 C 80 22 145/78 H 95 01/12/20 07:21 79 24 172/71 H 96
[2020-01-12] MEDS: LEVALBUTEROL 1.25MG/0.5ML NEB NEB SCH ×4 (11:15→23:09)
[2020-01-12] MEDS ORDERED: HydrALAZINE HCL 20 MG/ML VIAL IV STA (11:44)
[2020-01-12] MEDS ORDERED: HydrALAZINE HCL 20 MG/ML VIAL IV PRN (11:45)
[2020-01-12] MEDS ORDERED: FUROSEMIDE 80 MG in SYRINGE 0 ML IV ONE (11:45)
[2020-01-12 11:58] LABS: Base Excess ABG -9.9 mEq/L (-9-1.8); HCO3 ABG 15 mmol/L (19-24); Oxygen Saturation ABG 97.7 % (90-95); PCO2 ABG 31 mmHg (35-46); PO2 ABG 110 mmHg (80-95); pH ABG 7.31 (7.35-7.45)
[2020-01-12] MEDS ORDERED: ASPIRIN 81 MG ECTAB PO SCH (12:00)
[2020-01-12] MEDS ORDERED: LEVALBUTEROL 1.25MG/0.5ML NEB NEB SCH (12:00)
[2020-01-12 12:05] LABS: Allen Test Pos (Pos)
--- NOTE | 2020-01-12 12:20 | Cardiology Consultation ---
Date of Consultation January 12, 2020 Assessment & Plan (1) Acute respiratory failure with hypoxia: (2) CKD (chronic kidney disease) stage 5, GFR less than 15 ml/min: (3) CHF (congestive heart failure): (4) Diabetes mellitus, type 2: Believe this patient is most likely in congestive heart failure due to volume overload from his end-stage kidney disease. His echocardiogram completed recently shows normal LV systolic function. He had a negative pharmacologic nuclear stress test for ischemia. His EKG is unchanged with a right bundle branch block and left anterior hemiblock. He has minimal elevation of his cardiac troponins which is most likely due to his renal failure. I do not bel ieve any additional cardiac testing is indicated. Nephrology has been consulted. History of Present Illness Attending Physician: Rosa Whitehead MD History of Present Illness This is a 74-year-old male patient with a history of diabetes and end-stage kidney disease followed by nephrology who was just discharged from this hospital a few days ago after he presented with atypical chest pain. He underwent a pharmacologic nuclear stress test that was negative. He also had an echocardiogram that revealed normal LV function. He returned to the hospital in respiratory extremis with congestive heart failure due to volume overload and most likely due to end-stage renal disease. He is currently on BiPAP and not answer specific questions. Allergies Allergy/AdvReac Type Severity Reaction Status Date / Time No Known Allergies Allergy Verified 01/12/20 08:02 Home Medications Home Medications Medication Instructions Recorded Confirmed Type Tradjenta 5 mg PO QAM 07/31/19 01/12/20 History atorvastatin 40 mg PO QPM 07/31/19 01/12/20 History carvedilol 12.5 mg PO BIDM 07/31/19 01/12/20 History cholecalciferol (vitamin D3) 1,000 unit PO QAM 07/31/19 01/12/20 History [Vitamin D3] citalopram 40 mg PO QPM 07/31/19 01/12/20 History dicyclomine 10 mg PO TID 07/31/19 01/12/20 History finasteride 5 mg PO HS 07/31/19 01/12/20 History hydralazine 75 mg PO BID 07/31/19 01/12/20 History tamsulosin 0.4 mg PO HS 07/31/19 01/12/20 History albuterol sulfate 2 puff INHALATION Q6H PRN 12/16/19 01/12/20 History loratadine 10 mg PO DAILY PRN 12/16/19 01/12/20 History aspirin 81 mg PO QAM 01/06/20 01/12/20 History pantoprazole 40 mg PO QAM 01/06/20 01/12/20 History amlodipine 10 mg PO HS #30 tab 01/08/20 01/12/20 Rx diphenhydramine-zinc acetate 1 appln TOP TID PRN #28.3 gm 01/08/20 01/12/20 Rx [Benadryl Extra Strength] triamcinolone acetonide 1 appln TOP BID #15 gm 01/08/20 01/12/20 Rx Patient History Medical History Anxiety and depression BPH (benign prostatic hyperplasia) Chronic anemia CKD (chronic kidney disease), stage IV Diabetes mellitus, type 2 Hyperlipidemia Hypertension Osteoarthritis PAD (peripheral artery disease) Tobacco abuse Surgical History Cardiac murmur History of cataract surgery RT/LEFT History of cholecystectomy History of colonoscopy History of esophagogastroduodenoscopy (EGD) History of procedure for peripheral vascular disease LEFT LEG (STENT PLACED/REASON FOR TAKING PLAVIX) History of tooth extraction Family History Brother Cancer Social History Preferred Language: Welsh Communication Ability: Effective Front Line Supervisor Required: No Beliefs That Will Affect Care: None Current Living Situation: Significant Other Other Information That Helps Us Care for You: No Feels Safe at Home: Yes Safety Concerns: Feels Safe At This Time Smoking Status: Current every day smoker Tobacco Type: cigarettes ; Cigarettes Per Day: 10 ; Second Hand Exposure: No ; Hx Alcohol Use: No Hx Substance Use: No Review of Systems Review of Systems: Other Physical Exam Physical Exam: General: no acute distress and stated age Head: normocephalic, no masses, lesions, tenderness or abnormalities Eyes: conjunctiva are pink and non-injected, sclera clear Neck: supple, no adenopathy, no bruits, normal jugular venous pulse, no hepatojugular reflux Chest: normal shape and normal respiratory effort Lungs: clear to auscultation and percussion Cardiac Exam: - regular rate & rhythm, no murmurs gallops or rubs - normal S1, normal S2 Pulses: 2(+) throughout Abdomen: abdomen soft, non-tender, no abnormal masses and no hepatosplenomegaly Musculoskeletal: no gait disturbance, no joint inflammation, no deforming arthritis Extremities: no edema and no cyanosis Neuro: grossly normal exam Results & Data ([facility]) Vital Signs (Past 12 Hours) Vital Signs Temp Pulse Pulse Resp BP BP Pulse Ox 01/12/20 11:23 36.7 C 104 H 28 H 205/100 H 99 01/12/20 11:06 86 33 H 98 01/12/20 11:04 86 33 H 98 01/12/20 11:02 36.7 C 88 20 198/98 H 98 01/12/20 10:36 95 01/12/20 10:21 79 28 H 99 01/12/20 10:01 79 28 H 01/12/20 10:00 79 27 H 181/62 H 01/12/20 09:54 80 23 166/78 H 93 01/12/20 09:30 77 24 183/71 H 01/12/20 09:01 77 26 H 01/12/20 09:00 77 28 H 153/118 H 01/12/20 08:30 77 26 H 147/65 H 92 01/12/20 08:11 78 88 L 01/12/20 08:03 78 20 93 01/12/20 08:01 76 26 H 163/90 H 92 01/12/20 08:00 77 19 86 L 01/12/20 07:31 79 21 95 01/12/20 07:30 78 25 H 170/77 H 94 01/12/20 07:23 36.6 C 80 22 145/78 H 95 01/12/20 07:21 79 24 172/71 H 96 Laboratory Results Laboratory Results - last 24 hr 01/12/20 01/12/20 01/12/20 07:04 07:04 07:04 WBC 13.86 H RBC 2.86 L Hgb 8.4 L Hct 27.4 L MCV 95.8 MCH 29.4 MCHC 30.7 L RDW Std Deviation 46.7 H RDW Coeff of Danny 13.4 Plt Count 237 MPV 10.7 H Immature Gran % (Auto) 0.3 Neut % (Auto) 80.5 Lymph % (Auto) 6.1 [place] % (Auto) 7.6 Eos % (Auto) 5.3 Baso % (Auto) 0.2 Immature Gran # (Auto) 0.04 H Neut # (Auto) 11.14 H Lymph # (Auto) 0.85 L [place] # (Auto) 1.06 H Eos # (Auto) 0.74 H Baso # (Auto) 0.03 PT 11.3 INR 1.1 APTT 26.7 PTT Ratio 1.0 ABG pH ABG pCO2 ABG pO2 ABG HCO3 ABG O2 Saturation ABG Base Excess J[place]quin Test Barometric Pressure Oxygen Given Sodium 138 Potassium 5.2 H Chloride 111 H Carbon Dioxide 16 L Anion Gap 11.0 BUN 74 H Creatinine 4.99 H* Est Cr Clr Drug Dosing 12.6 Est GFR ( Amer) 12.1 Est GFR (Non-Af Amer) 10.4 BUN/Creatinine Ratio 14.8 Glucose 151 H POC Glucose Lactate Calcium 9.0 Total Bilirubin 0.6 AST 17 ALT 48 Alkaline Phosphatase 90 Troponin I 0.035 NT-Pro-B Natriuret Pep Total Protein 7.5 Albumin 3.6 Globulin 3.9 Albumin/Globulin Ratio 0.9 Lipase 157 Procalcitonin Influenza Type A (PCR) Influenza Type B (PCR) 01/12/20 01/12/20 01/12/20 07:04 07:04 08:05 WBC RBC Hgb Hct MCV MCH MCHC RDW Std Deviation RDW Coeff of Danny Plt Count MPV Immature Gran % (Auto) Neut % (Auto) Lymph % (Auto) [place] % (Auto) Eos % (Auto) Baso % (Auto) Immature Gran # (Auto) Neut # (Auto) Lymph # (Auto) [place] # (Auto) Eos # (Auto) Baso # (Auto) PT INR APTT PTT Ratio ABG pH ABG pCO2 ABG pO2 ABG HCO3 ABG O2 Saturation ABG Base Excess [place]quin Test Barometric Pressure Oxygen Given Sodium Potassium Chloride Carbon Dioxide Anion Gap BUN Creatinine Est Cr Clr Drug Dosing Est GFR ( Amer) Est GFR (Non-Af Amer) BUN/Creatinine Ratio Glucose POC Glucose Lactate Calcium Total Bilirubin AST ALT Alkaline Phosphatase Troponin I NT-Pro-B Natriuret Pep 4720 H Total Protein Albumin Globulin Albumin/Globulin Ratio Lipase Procalcitonin 0.24 Influenza Type A (PCR) Neg for Influ A Influenza Type B (PCR) Neg for Influ B 01/12/20 01/12/20 01/12/20 09:40 09:40 11:30 WBC RBC Hgb Hct MCV MCH MCHC RDW Std Deviation RDW Coeff of Danny Plt Count MPV Immature Gran % (Auto) Neut % (Auto) Lymph % (Auto) [place] % (Auto) Eos % (Auto) Baso % (Auto) Immature Gran # (Auto) Neut # (Auto) Lymph # (Auto) [place] # (Auto) Eos # (Auto) Baso # (Auto) PT INR APTT PTT Ratio ABG pH Cancelled ABG pCO2 Cancelled ABG pO2 Cancelled ABG HCO3 Cancelled ABG O2 Saturation Cancelled ABG Base Excess Cancelled [place]quin Test Cancelled Barometric Pressure Cancelled Oxygen Given Cancelled Sodium Potassium Chloride Carbon Dioxide Anion Gap BUN Creatinine Est Cr Clr Drug Dosing Est GFR ( Amer) Est GFR (Non-Af Amer) BUN/Creatinine Ratio Glucose POC Glucose 209 H Lactate 1.1 Calcium Total Bilirubin AST ALT Alkaline Phosphatase Troponin I NT-Pro-B Natriuret Pep Total Protein Albumin Globulin Albumin/Globulin Ratio Lipase Procalcitonin Influenza Type A (PCR) Influenza Type B (PCR) 01/12/20 11:44 WBC RBC Hgb Hct MCV MCH MCHC RDW Std Deviation RDW Coeff of Danny Plt Count MPV Immature Gran % (Auto) Neut % (Auto) Lymph % (Auto) [place] % (Auto) Eos % (Auto) Baso % (Auto) Immature Gran # (Auto) Neut # (Auto) Lymph # (Auto) [place] # (Auto) Eos # (Auto) Baso # (Auto) PT INR APTT PTT Ratio ABG pH 7.31 L ABG pCO2 31 L ABG pO2 110 H ABG HCO3 15 L ABG O2 Saturation 97.7 H ABG Base Excess -9.9 L [place] Test Pos Barometric Pressure 740.1 Oxygen Given 30% Sodium Potassium Chloride Carbon Dioxide Anion Gap BUN Creatinine Est Cr Clr Drug Dosing Est GFR ( Amer) Est GFR (Non-Af Amer) BUN/Creatinine Ratio Glucose POC Glucose Lactate Calcium Total Bilirubin AST ALT Alkaline Phosphatase Troponin I NT-Pro-B Natriuret Pep Total Protein Albumin Globulin Albumin/Globulin Ratio Lipase Procalcitonin Influenza Type A (PCR) Influenza Type B (PCR) Medications Administered Current Inpatient Medications Acetaminophen (Tylenol) 650 mg PO Q4H PRN PRN Reason: Pain or Fever Stop: 02/11/20 10:53 Al Hydrox/Mg Hydrox/Simethicone (Maalox) 15 ml PO Q4H PRN PRN Reason: Dyspepsia Stop: 02/11/20 10:53 Albuterol (Ventolin Hfa) 2 puffs INH Q6H PRN PRN Reason: Shortness Of Breath Or Wheezing Stop: 02/11/20 10:53 Amlodipine Besylate (Norvasc) 10 mg PO HS RANDY Stop: 02/11/20 20:59 Aspirin (Ecotrin Ectab) 81 mg PO QAM RANDY Stop: 02/12/20 08:59 Aspirin (Ecotrin Ectab) 81 mg PO QAM RNADY Stop: 02/11/20 11:59 Atorvastatin Calcium (Lipitor) 40 mg PO QPM RANDY Stop: 02/11/20 20:59 Carvedilol (Coreg) 12.5 mg PO BIDM RANDY Stop: 02/11/20 16:59 Citalopram Hydrobromide (Celexa) 40 mg PO QPM RANDY Stop: 02/11/20 20:59 Dextrose (Dextrose 50%) 25 - 50 ml IV UD PRN; Protocol PRN Reason: Hypoglycemia Protocol Stop: 02/11/20 10:53 Dicyclomine HCl (Bentyl) 10 mg PO TID PRN PRN Reason: Itching Stop: 02/11/20 13:59 Finasteride (Proscar) 5 mg PO HS RANDY Stop: 02/11/20 20:59 Glucagon (Glucagen) 1 mg SQ UD PRN; Protocol PRN Reason: Hypoglycemia Protocol Stop: 02/11/20 10:53 Glucose (Dex4 Glucose) 4 - 8 tabs PO UD PRN; Protocol PRN Reason: Hypoglycemia Protocol Stop: 02/11/20 10:53 Glucose (Glucose 40%) 15 - 30 gm PO UD PRN; Protocol PRN Reason: Hypoglycemia Protocol Stop: 02/11/20 10:53 Heparin Sodium (Porcine) (Heparin Sodium (Porcine)) 5,000 units SQ Q8 RANDY Stop: 02/11/20 13:59 Hydralazine HCl (Apresoline) 75 mg PO BID RANDY Stop: 02/11/20 20:59 Hydralazine HCl (Hydralazine Hcl) 10 mg IV Q8 PRN PRN Reason: SBP > 160 Stop: 02/11/20 11:44 Insulin Aspart (Novolog Flexpen) 0 units SC ACHS RANDY Stop: 02/11/20 11:29 Insulin Glargine (Lantus Solostar Pen) 0 - 7 units SC Q12H RANDY Stop: 02/11/20 20:59 Levalbuterol HCl (Xopenex 1.25mg/0.5ml Neb) 1.25 mg NEB Q4R RANDY Stop: 02/11/20 11:59 Last Admin: 01/12/20 11:15 Dose: Not Given Documented by: Levalbuterol HCl (Xopenex 1.25mg/3ml Neb) 1.25 mg NEB Q2R PRN PRN Reason: wheeze Stop: 02/11/20 10:38 Loratadine (Claritin) 10 mg PO DAILY PRN PRN Reason: Itching Stop: 02/11/20 10:53 Magnesium Hydroxide (Milk Of Magnesia) 30 ml PO Q12H PRN PRN Reason: Constipation Stop: 02/11/20 10:53 Miscellaneous (Carbohydrates For Hypoglycemia) 15 - 30 gm PO UD PRN PRN Reason: Hypoglycemia Protocol Stop: 02/11/20 10:53 Nitroglycerin (Nitrostat) 0.4 mg SL UD PRN PRN Reason: Chest Pain Stop: 02/11/20 10:53 Ondansetron HCl (Zofran) 4 mg IV Q6H PRN PRN Reason: Nausea Stop: 02/11/20 10:53 Pantoprazole Sodium (Protonix) 40 mg PO QAM RANDY Stop: 02/12/20 08:59 Polyethylene Glycol (Miralax Powder Packet) 17 gm PO DAILY PRN PRN Reason: Constipation Stop: 02/11/20 10:53 Tamsulosin HCl (Flomax) 0.4 mg PO HS RANDY Stop: 02/11/20 20:59 Triamcinolone Acetonide (Kenalog 0.1%) 1 appln TOP BID RANDY Stop: 02/11/20 20:59 Vitamin D (Vitamin D3) 1,000 units PO QAM RANDY Stop: 02/12/20 08:59 Zinc Acetate/Diphenhydramine (Benadryl Extra Strength) 1 appln EXT TID PRN PRN Reason: itching Stop: 02/11/20 10:53
[2020-01-12] MEDS: INSULIN ASPART 100 UNITS/ML 3 ML PEN SC SCH ×3 (12:32→21:44)
[2020-01-12] MEDS: LEVALBUTEROL HCL 1.25 MG/3 ML NEB NEB PRN ×2 (13:22→19:19)
[2020-01-12] MEDS ORDERED: SODIUM CHLORIDE 0.9% 1000ML 1,000 ML IV PRN (13:32)
[2020-01-12] MEDS ORDERED: HEPARIN SOD (PORCINE) 1000 UNIT/ML 10 ML VIAL IV ONE (13:32)
[2020-01-12 13:48] LABS: Hepatitis B Surface Ab Quant 3.96 mIU/mL (>or=10mIU/mL Immune); Hepatitis B Surface Antibody Non-Immune
[2020-01-12 14:00] LABS: Hepatitis B Surface Antigen Neg (Neg)
[2020-01-12] MEDS ORDERED: DICYCLOMINE HCL 10 MG CAP PO PRN (14:00)
[2020-01-12] MEDS ORDERED: MoRPHine SULFATE 2 MG/ML CARP ONE ×2 (14:24→14:25)
[2020-01-12] MEDS ORDERED: MoRPHine SULFATE 2 MG/ML CARP IV PRN (14:26)
[2020-01-12] MEDS: HEPARIN SOD 5,000 UNIT/0.5 ML VIAL SQ SCH ×2 (14:41→21:46)
--- NOTE | 2020-01-12 14:56 | Hospitalist Progress Note ---
Date of Service January 12, 2020 Assessment & Plan Admission and Anticipated Discharge Date Admission Date: January 12, 2020 Subjective Patient has chronic abdominal pain Patient is revisited, as nursing informed that patient is very restless, uncomfortable, remains on BiPAP complains of severe abdominal pain, discomfort patient started on dialysis Patient seen at bedside in room 234 bed 1 Complaints of burning abdominal pain leading him to be very short of breath Patient appears to be very uncomfortable ordered for morphine 1 mg IV x1 Patient is started on dialysis by nephrology Symptoms, was seen and evaluated by gastroenterology in the past and had EGD and small bowel follow-through Prior to coming to the ER this morning patient woke up at 3 AM with severe abdomen pain followed by shortness of breath Bedside abdominal exam was benign, soft nontender, bowel sounds was active Labs reviewed, lactic acid procalcitonin negative reviewed ABG: Intractable abdominal pain with metabolic acidosis pH 7.31/PCO2 31/210/bicarb of 15 SPO2 97.7% on BiPAP Metabolic acidosis, with partial respiratory compensation, CO2 31 on the lower end suggestive of hyperventilation No hypoxemia Possible bowel ischemia? History of peripheral artery disease, end-stage renal disease, high likelihood for bowel atherosclerosis Although lactic acid and procalcitonin was negative on admission: Had mild leukocytosis Ordered for n.p.o. CT abdomen pelvis noncontrast can be done after dialysis Continue intermittent IV morphine low-dose for pain symptoms Ordered for IV Zosyn empirically for bowel ischemia we will continue for 48 hours Continue to monitor in telemetry Rosa Whitehead MD Results & Data ([facility]) Vital Signs (Past 12 Hours) Vital Signs Temp Pulse Pulse Resp BP BP Pulse Ox 01/12/20 13:22 92 H 92 H 38 H 98 01/12/20 11:23 36.7 C 104 H 28 H 205/100 H 99 01/12/20 11:06 86 33 H 98 01/12/20 11:04 86 33 H 98 01/12/20 11:02 36.7 C 88 20 198/98 H 98 01/12/20 10:36 95 01/12/20 10:21 79 28 H 99 01/12/20 10:01 79 28 H 01/12/20 10:00 79 27 H 181/62 H 01/12/20 09:54 80 23 166/78 H 93 03/09/20 09:30 77 24 183/71 H 01/12/20 09:01 77 26 H 01/12/20 09:00 77 28 H 153/118 H 01/12/20 08:30 77 26 H 147/65 H 92 01/12/20 08:11 78 88 L 01/12/20 08:03 78 20 93 01/12/20 08:01 76 26 H 163/90 H 92 01/12/20 08:00 77 19 86 L 01/12/20 07:31 79 21 95 01/12/20 07:30 78 25 H 170/77 H 94 01/12/20 07:23 36.6 C 80 22 145/78 H 95 01/12/20 07:21 79 24 172/71 H 96
[2020-01-12] MEDS ORDERED: PIPERACILL/TAZOBAC CONSULT ACTIVE PRN (15:01)
[2020-01-12] MEDS ORDERED: PIPERACILLIN/TAZOBACTAM 3.375 GM in DEXTROSE 5% 100 ML IV ONE (15:15)
--- NOTE | 2020-01-12 15:30 | Electrocardiogram Report ---
Test Reason : Blood Pressure : / mmHG Vent. Rate : 079 BPM Atrial Rate : 079 BPM P-R Int : 162 ms QRS Dur : 142 ms QT Int : 446 ms P-R-T Axes : 031 -58 065 degrees QTc Int : 511 ms Normal sinus rhythm Right bundle branch block Left anterior fascicular block Bifascicular block Left ventricular hypertrophy with repolarization abnormality Cannot rule out Septal infarct , age undetermined Abnormal ECG When compared with ECG of 07-JAN-2020 06:56, T wave inversion no longer evident in Inferior leads T wave inversion now evident in Anterolateral leads Confirmed by Kevin Simon ([id number]) on 01/12/2020 3:30:05 PM Referred By: REFERRED SELF Confirmed By:Kevin Simon
--- NOTE | 2020-01-12 16:28 | Hospitalist Progress Note ---
Date of Service January 12, 2020 Assessment & Plan Admission and Anticipated Discharge Date Admission Date: January 12, 2020 Subjective Attending addendum: Patient's dialysis access/fistula could not be used for dialysis even after multiple attempts by dialysis nursing staff Nephrology Dr. Ferrer updated Patient dialysis fistula was placed at [facility] in [place] Nephrology recommends medical management, ordered for 80 mg of IV Lasix stat(got 80 mg of IV Lasix on admission already) And start on IV Lasix drip with 20 mg/h Vascular surgery Dr. Duncan consulted for PermCath placement Patient's respiratory distress/hypoxia improved, Off BiPAP, on 4 l O2 oxygen mask Patient reports significant improvement of abdominal pain and discomfort, Ordered for clear liquid diet advance as tolerated CT abdomen pelvis noncontrast ordered Continue to monitor in telemetry Rosa Whitehead MD Results & Data ([facility]) Vital Signs (Past 12 Hours) Vital Signs Temp Pulse Pulse Resp BP BP Pulse Ox 01/12/20 15:04 82 31 H 99 01/12/20 15:02 82 31 H 99 01/12/20 13:22 92 H 92 H 38 H 98 01/12/20 11:23 36.7 C 104 H 28 H 205/100 H 99 01/12/20 11:06 86 33 H 98 01/12/20 11:04 86 33 H 98 01/12/20 11:02 36.7 C 88 20 198/98 H 98 01/12/20 10:36 95 01/12/20 10:21 79 28 H 99 01/12/20 10:01 79 28 H 01/12/20 10:00 79 27 H 181/62 H 01/12/20 09:54 80 23 166/78 H 93 01/12/20 09:30 77 24 183/71 H 01/12/20 09:01 77 26 H 01/12/20 09:00 77 28 H 153/118 H 01/12/20 08:30 77 26 H 147/65 H 92 01/12/20 08:11 78 88 L 01/12/20 08:03 78 20 93 01/12/20 08:01 76 26 H 163/90 H 92 01/12/20 08:00 77 19 86 L 01/12/20 07:31 79 21 95 01/12/20 07:30 78 25 H 170/77 H 94 01/12/20 07:23 36.6 C 80 22 145/78 H 95 01/12/20 07:21 79 24 172/71 H 96
[2020-01-12] MEDS ORDERED: FUROSEMIDE 80 MG in SYRINGE 0 ML IV STA (16:30)
--- NOTE | 2020-01-12 16:30 | Nephrology Consultation ---
Date of Consultation January 12, 2020 Assessment & Plan (1) CKD (chronic kidney disease) stage 5, GFR less than 15 ml/min: Patient with CKD 5 not on HD but now with progressively worsening renal function and recurrent volume overload. He is still making urine but given hyperkalemia, acidosis and volume overload, will start him on HD. He has consented to dialysis. I explained risks and benefits of HD. Cannulation of AVF failed. He will need fistulogram before successful use of AVF. Will hold off HD for now and diurese him aggresively (2) Acute respiratory failure with hypoxia: Due to pulmonary edema. He made 500ml of urine after lasix bolus. Continue BIPAP as needed. Monitor respiratory status with diuresis (3) CHF (congestive heart failure): Will give lasix 80mg bolus and lasix drip at 20mg/hr. Monitor input/output. Daily weight and renal diet (4) Hypertension: BP is above target. Continue amlodipine and hydralazine. Increase coreg to 25mg bid History of Present Illness Reason for Consultation: CKD 5, Acute hypoxic respiratory failure Requesting Physician: Rosa Whitehead MD Attending Physician: Rosa Whitehead MD History of Present Illness This is a 74-year-old male being seen for CKD 5 with acute pulmonary edema. PMH of T2DM, CKD stage V with mature AV fistula currently not on hemodialysis, HTN, HLD, COPD, anemia of chronic disease, PAD status post stent, tobacco abuse, gastritis, AVM with clip, depression who was admitted on 01/11 with shortness of breath for 1 day. Patient follows with Dr. Horta. Cr recently worsening to 4 range. he has left FA AVF created October [address] Segovia. He was admitted recently with similar complaints. In the ED he was hypoxic and currently on BIPAP. He is making urine about 500ml since getting iv lasix 80mg. He reports poor appetite but no vomiting. He is agreeable to starting HD Allergies Allergy/AdvReac Type Severity Reaction Status Date / Time No Known Allergies Allergy Verified 01/12/20 08:02 Home Medications Home Medications Medication Instructions Recorded Confirmed Type Tradjenta 5 mg PO QAM 07/31/19 01/12/20 History atorvastatin 40 mg PO QPM 07/31/19 01/12/20 History carvedilol 12.5 mg PO BIDM 07/31/19 01/12/20 History cholecalciferol (vitamin D3) 1,000 unit PO QAM 07/31/19 01/12/20 History [Vitamin D3] citalopram 40 mg PO QPM 07/31/19 01/12/20 History dicyclomine 10 mg PO TID 07/31/19 01/12/20 History finasteride 5 mg PO HS 07/31/19 01/12/20 History hydralazine 75 mg PO BID 07/31/19 01/12/20 History tamsulosin 0.4 mg PO HS 07/31/19 01/12/20 History albuterol sulfate 2 puff INHALATION Q6H PRN 12/16/19 01/12/20 History loratadine 10 mg PO DAILY PRN 12/16/19 01/12/20 History aspirin 81 mg PO QAM 01/06/20 01/12/20 History pantoprazole 40 mg PO QAM 01/06/20 01/12/20 History amlodipine 10 mg PO HS #30 tab 01/08/20 01/12/20 Rx diphenhydramine-zinc acetate 1 appln TOP TID PRN #28.3 gm 01/08/20 01/12/20 Rx [Benadryl Extra Strength] triamcinolone acetonide 1 appln TOP BID #15 gm 01/08/20 01/12/20 Rx Patient History Medical History Anxiety and depression BPH (benign prostatic hyperplasia) Chronic anemia CKD (chronic kidney disease), stage IV Diabetes mellitus, type 2 Hyperlipidemia Hypertension Osteoarthritis PAD (peripheral artery disease) Tobacco abuse Surgical History Cardiac murmur History of cataract surgery RT/LEFT History of cholecystectomy History of colonoscopy History of esophagogastroduodenoscopy (EGD) History of procedure for peripheral vascular disease LEFT LEG (STENT PLACED/REASON FOR TAKING PLAVIX) History of tooth extraction Family History Brother Cancer Social History Preferred Language: Swedish Communication Ability: Effective Card Doffer Required: No Beliefs That Will Affect Care: None Current Living Situation: Significant Other Other Information That Helps Us Care for You: No Feels Safe at Home: Yes Safety Concerns: Feels Safe At This Time Smoking Status: Current every day smoker Tobacco Type: cigarettes ; Cigarettes Per Day: 10 ; Second Hand Exposure: No ; Hx Alcohol Use: No Hx Substance Use: No Review of Systems Review of Systems: All systems reviewed & are unremarkable except as noted in HPI & below Physical Exam Physical Exam: General exam: In acute respiratory distress on BIPAP HEENT: Pupils are equal and reactive to light Neck: No JVD, neck is supple trachea is midline Respiratory system: crackles bilaterally. Gastrointestinal: Abdomen is soft, non distended, non tender, bowel sounds are present CVS: Regular rate and rhythm. No murmurs, rubs or gallops Musculoskeletal: No joint or muscle tenderness Extremities: Non tender, no edema, peripheral pulses are present Neuro: Oriented, no tremors, no focal neurological deficits Skin: No rashes Results & Data Vital Signs (Past 12 Hours) Vital Signs Temp Pulse Pulse Resp BP BP Pulse Ox 01/12/20 15:04 82 31 H 99 01/12/20 15:02 82 31 H 99 01/12/20 13:22 92 H 92 H 38 H 98 01/12/20 11:23 36.7 C 104 H 28 H 205/100 H 99 01/12/20 11:06 86 33 H 98 01/12/20 11:04 86 33 H 98 01/12/20 11:02 36.7 C 88 20 198/98 H 98 01/12/20 10:36 95 01/12/20 10:21 79 28 H 99 01/12/20 10:01 79 28 H 01/12/20 10:00 79 27 H 181/62 H 01/12/20 09:54 80 23 166/78 H 93 01/12/20 09:30 77 24 183/71 H 01/12/20 09:01 77 26 H 01/12/20 09:00 77 28 H 153/118 H 01/12/20 08:30 77 26 H 147/65 H 92 01/12/20 08:11 78 88 L 01/12/20 08:03 78 20 93 01/12/20 08:01 76 26 H 163/90 H 92 01/12/20 08:00 77 19 86 L 01/12/20 07:31 79 21 95 01/12/20 07:30 78 25 H 170/77 H 94 01/12/20 07:23 36.6 C 80 22 145/78 H 95 01/12/20 07:21 79 24 172/71 H 96 Laboratory Results 01/12/20 07:04 01/12/20 01/12/20 07:04 07:04 WBC 13.86 H RBC 2.86 L MCV 95.8 MCH 29.4 MCHC 30.7 L RDW Std Deviation 46.7 H RDW Coeff of Danny 13.4 Plt Count 237 MPV 10.7 H Albumin 3.6 (1) CHF (congestive heart failure) Heart failure chronicity: acute Heart failure type: unspecified Qualified Code(s): I50.9 - Heart failure, unspecified
[2020-01-12] MEDS: carvediloL 12.5 MG TAB PO SCH (17:26)
[2020-01-12] MEDS: NITROGLYCERIN 2% OINTMENT 30GM TUBE EXT SCH ×2 (17:34→23:45)
[2020-01-12] MEDS: FUROSEMIDE 100 MG in DEXTROSE 5% 90 ML IV SCH ×2 (17:55→22:51)
--- NOTE | 2020-01-12 18:51 | Ultrasound Report ---
US hemodialysis access HISTORY: 74 years-old Male non functioning left upper arm fistula COMPARISON: None TECHNIQUE: Multiple real-time sonographic images of the left upper extremity vascular structures were obtained assessing grayscale appearance, color and spectral flow FINDINGS: Patent arteriovenous fistula of the left upper extremity appears to be between the cephalic vein and radial artery. No elevated peak systolic velocities identified to suggest high-grade stenosis. Mixed of velocity within the radial artery proximal to the anastomosis measure up to 114 cm/s and distal to the anastomosis within the radial artery measure up to 72 cm/s. At the level of the anastomosis, pea k systolic velocities of the radial artery measure up to 24 cm/s. Additionally, there is moderate lum inal narrowing at the anastomotic site. IMPRESSION: 1. Patent arteriovenous fistula of the left upper extremity. 2. Moderate luminal narrowing at the anastomotic site. ACT 112: Negative or not required by law. The above report was generated using voice recognition software. It may contain grammatical, syntax o r spelling errors. Electronically signed by: Gustavo Cooney M.D. 01/12/2020 6:49 PM
[2020-01-12 19:13] LABS: Hematocrit (blood only) 24.2 % (42-52); Hemoglobin 7.6 g/dL (14.0-18.0); Mean Corpuscular Hemoglobin 29.5 pg (25-34); Mean Corpuscular Hgb Conc 31.4 g/dL (32-36); Mean Corpuscular Volume 93.8 fL (80-100); Mean Platelet Volume 9.5 fL (7.4-10.4); Platelet Count 181 K/uL (130-400); RDW Coefficient of Variation 13.6 % (11.5-14.5); RDW Standard Deviation 46.1 fL (36.4-46.3); Red Blood Count 2.58 M/uL (4.7-6.1); White Blood Count 9.25 K/uL (4.8-10.8)
[2020-01-12 19:45] LABS: BUN Creatinine Ratio 15.9 (10-20); Calcium 8.9 mg/dl (8.5-10.1); Creatinine Clr Calc Pharmacy 12.7 ml/min; Est GFR (African American) 12.3; Est GFR (Non-African American) 10.6; Potassium 4.5 mmol/L (3.5-5.1)
[2020-01-12] MEDS ORDERED: MoRPHine SULFATE 2 MG/ML CARP IV STA ×2 (19:57→22:46)
[2020-01-12 21:01] LABS: Troponin I 0.075 ng/ml (0-0.045)
[2020-01-12] MEDS: PANTOprazole 40 MG TAB PO SCH (21:31)
[2020-01-12] MEDS: TAMSULOSIN HCL 0.4 MG CAP PO SCH (21:31)
[2020-01-12] MEDS: ATORVASTATIN 40 MG TAB PO SCH (21:31)
[2020-01-12] MEDS: AMLODIPINE BESYLATE 5 MG TAB PO SCH (21:32)
[2020-01-12] MEDS: CITALOPRAM 40 MG TAB PO SCH (21:32)
[2020-01-12] MEDS: FINASTERIDE 5 MG TAB PO SCH (21:32)
[2020-01-12] MEDS: TRIAMCINOLONE ACET 0.1% CR 15 GM TUBE TOP SCH (21:38)
[2020-01-12] MEDS: INSULIN GLARGINE SOLOSTAR 100 UNITS/ML 3 ML PEN SC SCH (21:43)
[2020-01-12] MEDS ORDERED: PIPERACILLIN/TAZOBACTAM 3.375 GM in DEXTROSE 5% 100 ML IV SCH (22:00)
[2020-01-13] MEDS: LEVALBUTEROL 1.25MG/0.5ML NEB NEB SCH ×6 (02:31→23:18)
[2020-01-13] MEDS: FUROSEMIDE 100 MG in DEXTROSE 5% 90 ML IV SCH ×5 (03:31→23:32)
[2020-01-13] MEDS: NITROGLYCERIN 2% OINTMENT 30GM TUBE EXT SCH ×3 (05:10→17:47)
[2020-01-13] MEDS: HEPARIN SOD 5,000 UNIT/0.5 ML VIAL SQ SCH ×3 (05:15→21:28)
[2020-01-13 07:05] LABS: Basophils # (auto) 0.03 K/uL (0-0.2); Basophils % (auto) 0.5 %; Hematocrit (blood only) 23.9 % (42-52); Hemoglobin 7.4 g/dL (14.0-18.0); Immature Granulocytes # (auto) 0.02 K/uL (0.00-0.02); Immature Granulocytes % (auto) 0.3 %; Lymphocytes # (auto) 0.79 K/uL (1.2-3.4); Lymphocytes % (auto) 12.3 %; Mean Corpuscular Hemoglobin 29.6 pg (25-34); Mean Corpuscular Volume 95.6 fL (80-100); Mean Platelet Volume 10.1 fL (7.4-10.4); Monocytes # (auto) 1.28 K/uL (0.11-0.59); Monocytes % (auto) 19.9 %; Platelet Count 186 K/uL (130-400); RDW Coefficient of Variation 13.5 % (11.5-14.5); White Blood Count 6.42 K/uL (4.8-10.8)
[2020-01-13 07:56] LABS: Albumin Globulin Ratio 0.9 (0.9-2); Albumin Level 3.3 gm/dl (3.4-5.0); BUN Creatinine Ratio 15.9 (10-20); Bilirubin,Total 0.7 mg/dl (0.2-1); Calcium 8.7 mg/dl (8.5-10.1); Creatinine Clr Calc Pharmacy 11.6 ml/min; Est GFR (Non-African American) 9.5; Globulin 3.6 gm/dl (2.5-4.0); Potassium 4.5 mmol/L (3.5-5.1); Total Protein 6.9 gm/dl (6.4-8.2)
[2020-01-13 08:25] LABS: Echinocytes 1+
[2020-01-13] MEDS: ASPIRIN 81 MG ECTAB PO SCH (08:28)
[2020-01-13] MEDS: CHOLECALCIFEROL 1,000 UNITS 25 MCG TAB PO SCH (08:28)
[2020-01-13] MEDS: PANTOprazole 40 MG TAB PO SCH ×2 (08:29→21:26)
[2020-01-13] MEDS: carvediloL 12.5 MG TAB PO SCH ×2 (08:29→17:47)
[2020-01-13] MEDS: INSULIN GLARGINE SOLOSTAR 100 UNITS/ML 3 ML PEN SC SCH ×2 (08:30→21:29)
[2020-01-13] MEDS: TRIAMCINOLONE ACET 0.1% CR 15 GM TUBE TOP SCH ×2 (08:30→21:25)
[2020-01-13] MEDS: INSULIN ASPART 100 UNITS/ML 3 ML PEN SC SCH ×4 (08:32→18:14)
[2020-01-13] MEDS: LEVALBUTEROL HCL 1.25 MG/3 ML NEB NEB PRN ×2 (08:58→19:49)
[2020-01-13] MEDS ORDERED: PANTOprazole 40 MG TAB PO SCH (09:00)
--- NOTE | 2020-01-13 09:19 | Hospitalist Progress Note ---
Date of Service January 13, 2020 Assessment & Plan (1) Acute respiratory failure with hypoxia: Due to combination of volume overload/secondary to renal failure, leading to decompensated CHF with diastolic dysfunction, Patient continued with IV Lasix drip with adequate diuresis patient is a neg ative volume of 1.5 L overnight COPD exacerbation, Possibly due to above Patient noted to have audible wheeze, respiratory distress this morning On 4 L oxygen SPO2 98% Ordered for Solu-Medrol 125 mg x 1, Ordered for stat nebulizer treatment, Solu-Medrol 125 mg IV x1 now, and then continue scheduled dose of 40 every 8 hours Continue respiratory support Stat nebulizer treatment and continue scheduled dose Check stat chest x-ray, Patient is a long time chronic smoker, continues to smoke half a pack of cigarettes a day Continue to monitor telemetry Pulmonology evaluation if no improvement of respiratory status after IV Solu- Medrol nebulizer treatment and respiratory support (2) SOB (shortness of breath): Audible wheeze, respiratory distress secondary to combination of COPD exacerbation, volume overload/due to CKD stage V Volume status improved with overnight diuresis with IV Lasix Management of COPD as outlined above (3) CHF (congestive heart failure): Recent echocardiogram shows diastolic CHF with normal ejection fraction/HFp EF Presented with volume overload hypoxia respiratory distress bilateral pulmonary congestion secondary to worsening of renal failure leading to fluid retention Initially required BiPAP treatment, Off BiPAP now on 4 L oxygen via nasal cannula Patient started with IV Lasix drip, Diuresed well overnight, negative balance 1.5 L Appreciate input from cardiology Per current CMS guidelines he does meet SIRS criteria with WBC 13.8 6K, RR 28, he is afebrile and not tachycardic Lactic acid 1.1, procalcitonin 0.24 Sepsis/PNA not likely; sx likely 2/2 to volume overload due to ESRD and CHF Leukocytosis resolved, no overt signs or symptoms of infection, will DC IV Zosyn (4) CKD (chronic kidney disease) stage 5, GFR less than 15 ml/min: Baseline creatinine 3.9-4.0 Acute worsening of chronic kidney disease now stage V, BUN/creatinine 74 and 4.99 Appreciate input from nephrology Cannulation to fistula was not successful yesterday Ultrasound of fistula shows: 1. Patent arteriovenous fistula of the left upper extremity. 2. Moderate luminal narrowing at the anastomotic site. Vascular surgery consulted, case discussed with Dr. Duncan Per nephrology: Recommends fistulogram followed by evaluation of fistula by vascular surgery Does not need any PermCath yet Patient will need to have dialysis during this hospital stay, and also set up outpatient chronic dialysis on discharge Abdominal pain Chronic: (5) Diabetes mellitus, type 2: Last A1c 5.7 on 12/15/2019-shows good glycemic control On Tradjenta as outpatient Hold Tradjenta, NovoLog sliding scale per protocol (6) Hypertension: On admission noted to have hypertensive urgency, Secondary to volume overload, renal failure, respiratory distress Appreciate input from nephrology, Coreg dose increased to 25 mg twice daily(was on 12.5 mg twice daily), hydralazine dose increased 75 mg 3 times daily(was on 75 mg twice daily) PRN IV hydralazine ordered Blood pressure appears to be better controlled now Continue to monitor hemodynamics in PCU (7) PAD (peripheral artery disease): S/P stent to LLE in [place] by Dr. 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 No evidence of GI bleed Baseline hemoglobin between 8 and 9 (9) BPH (benign prostatic hyperplasia): On Flomax and finasteride as outpatient (10) Tobacco abuse: Continues to smoke half a half a pack of cigarette Strongly encouraged smoking cessation Consider nicotine patch if needed (11) DVT prophylaxis: SQ Heparin CODE STATUS: Full code Discussed with patient Disposition: Patient lives at home was independent in ADLs Presents with acute illness PT OT evaluation will be requested prior to discharge Patient will need arrangement for outpatient chronic dialysis Social service consulted for discharge planning to Admission and Anticipated Discharge Date Admission Date: January 12, 2020 Subjective Patient had diffuse wheeze, shortness of breath with respiratory distress this morning No complaint of abdominal pain, no nausea, Patient evaluated bedside, Audible wheeze noted, tachypneic Patient complains of shortness of breath, on 4 L oxygen via nasal cannula with SPO2 95% Gamble draining clear yellow urine patient remains afebrile, blood pressure improved today 125/51 Review of Systems Review of Systems: All systems reviewed & are unremarkable except as noted in HPI & below Constitutional: + problem reported (Shortness of breath, audible wheeze, respiratory distress) Respiratory: + cough, + dyspnea, + dyspnea on exertion and + wheezing Gastrointestinal: no abdominal pain, no nausea and no vomiting Physical Exam Constitutional: WD/WN, vitals as above + acute distress (In distress for shortness of breath) and + ill appearing Eyes: PERRL, conjunctivae normal, anicteric sclerae ENMT: Mouth: + oral mucosal abnormality (Dry oral mucosa) Neck: trachea midline, no thyromegaly Respiratory: + respiratory distress and + cough Auscultation: + diminished lung sounds, + crackles, + rales, + rhonchi and + wheezes Cardiovascular: Rate/Rhythm: regular rate and regular rhythm Extremities: no edema Gastrointestinal (Abdomen): Inspection/Auscultation: normal bowel sounds; abdomen not distended Percussion/Palpation: abdomen soft; abdomen nontender and no ascites Musculoskeletal: Head/Neck/Chest: + head abnormal to inspection Extremities: + abnormal strength (Generalized weakness); no cyanosis and no clubbing Skin: no rashes, warm and dry Neurologic: PERRL, EOMI, accommodation nl, no face palsy, no dysarthria Psychiatric: Orientation: alert and oriented x 3 Mood: + anxious mood Results & Data ([facility]) Vital Signs (Past 12 Hours) Vital Signs Temp Pulse Pulse Resp BP Pulse Ox 01/13/20 09:00 73 18 98 01/13/20 07:28 36.8 C 71 20 128/51 L 96 01/13/20 07:10 86 26 H 97 01/13/20 07:09 86 26 H 97 01/13/20 03:23 37.1 C 67 22 131/64 98 01/13/20 02:34 69 22 96 01/13/20 02:32 69 22 96 01/12/20 23:30 37.4 C 67 26 H 118/62 97 01/12/20 23:13 69 29 H 98 01/12/20 23:12 69 29 H 98 01/12/20 22:46 37.3 C 79 30 H 159/81 H 95 01/12/20 22:20 73 Diagnostic Findings CXR: 01/12/2020 IMPRESSION: 1. Cardiomegaly with worsening volume overload and congestive change. 2. Mild pulmonary edema is new from prior. Differential consideration includes aspiration. 3. Small bilateral pleural effusions new from prior.
--- NOTE | 2020-01-13 09:23 | XRay Report ---
XR chest 1V portable CLINICAL HISTORY: SOB dyspnea COMPARISON STUDY: 01/12/2020 FINDINGS: Mild stable cardiomegaly. Unchanged prominence of pulmonary vasculature. Small bilateral pl eural effusions are stable. There is no new or interval process. IMPRESSION: Findings of stable to perhaps minimally improved congestive change. Unaltered small basi lar pleural effusions ACT 112: Negative or not required by law. The above report was generated using voice recognition software. It may contain grammatical, syntax or spelling errors. Electronically signed by: Sher Sorenson M.D. 01/13/2020 9:21 AM
--- NOTE | 2020-01-13 09:38 | Nephrology Progress Note ---
Date of Service January 13, 2020 Assessment & Plan (1) CKD (chronic kidney disease) stage 5, GFR less than 15 ml/min: Patient with CKD 5 not on HD but now with progressively worsening renal function and recurrent volume overload. He is still making urine but given hyperkalemia, acidosis and volume overload, will start him on HD. He has consented to dialysis. I explained risks and benefits of HD. Cannulation of AVF failed. He will need fistulogram before successful use of AVF. Will hold off HD for now and diurese him aggressively (2) Acute respiratory failure with hypoxia: Due to pulmonary edema. He was net -1.4 L yesterday. He is wheezing and most likely has COPD exacerbation as well. Continue management for COPD and Lasix drip. (3) CHF (congestive heart failure): Continue Lasix drip at 20mg/hr. Monitor input/output. Daily weight and renal diet (4) Hypertension: BP is controlled. Continue amlodipine and hydralazine. coreg to 25mg bid Admission and Anticipated Discharge Date Admission Date: January 12, 2020 Subjective Patient feels better today he is off BiPAP. He is eating breakfast at the time of my visit. He still has shortness of breath and wheezing. He was net -1.4 L yesterday Review of Systems Review of Systems: All systems reviewed & are unremarkable except as noted in HPI & below Physical Exam Physical Exam: General exam: Appears comfortable, no acute distress HEENT: Pupils are equal and reactive to light Neck: No JVD, neck is supple trachea is midline Respiratory system: Wheezing bilaterally. Gastrointestinal: Abdomen is soft, non distended, non tender, bowel sounds are present CVS: Regular rate and rhythm. No murmurs, rubs or gallops Musculoskeletal: No joint or muscle tenderness Extremities: Non tender, no edema, peripheral pulses are present Neuro: Oriented, no tremors, no focal neurological deficits Skin: No rashes Results & Data ([facility]) Vital Signs (Past 12 Hours) Vital Signs Temp Pulse Pulse Resp BP Pulse Ox 01/13/20 09:00 73 18 98 01/13/20 07:28 36.8 C 71 20 128/51 L 96 01/13/20 07:10 86 26 H 97 01/13/20 07:09 86 26 H 97 01/13/20 03:23 37.1 C 67 22 131/64 98 01/13/20 02:34 69 22 96 01/13/20 02:32 69 22 96 01/12/20 23:30 37.4 C 67 26 H 118/62 97 01/12/20 23:13 69 29 H 98 01/12/20 23:12 69 29 H 98 01/12/20 22:46 37.3 C 79 30 H 159/81 H 95 01/12/20 22:20 73 Laboratory Results 01/13/20 06:30 01/12/20 01/13/20 01/13/20 19:04 06:30 06:30 WBC 9.25 6.42 RBC 2.58 L 2.50 L MCV 93.8 95.6 MCH 29.5 29.6 MCHC 31.4 L 31.0 L RDW Std Deviation 46.1 47.0 H RDW Coeff of Danny 13.6 13.5 Plt Count 181 186 MPV 9.5 10.1 Albumin 3.3 L (1) CHF (congestive heart failure) Heart failure chronicity: acute Heart failure type: unspecified Qualified Code(s): I50.9 - Heart failure, unspecified
[2020-01-13] MEDS ORDERED: methylPREDNISolone 125 MG in SYRINGE 0 ML IV ONE (09:45)
--- NOTE | 2020-01-13 10:21 | CT Scan Report ---
CT SCAN OF THE ABDOMEN AND PELVIS WITHOUT IV CONTRAST CLINICAL HISTORY: Generalized abdominal pain. COMPARISON STUDY: Abdominal CT dated 12/16/2019. TECHNIQUE: CT scan of the abdomen and pelvis is performed from the lung bases to the proximal femora. Images are reviewed in the axial, sagittal, and coronal planes. IV contrast was not administered for this examination as per the referring clinician. Note that the examination was performed in signific antly suboptimal fashion without oral and IV contrast. The examination is also degraded by motion art ifact. A dose lowering technique was utilized adhering to the principles of ALARA. CT DOSE: 611.20 mGycm FINDINGS: Lung bases: The heart is markedly enlarged and without pericardial effusion. The coronary arteries ar e densely calcified. There is diminished attenuation of the cardiac blood pool as compared to the rahul cardium suggesting anemia. A small hiatal hernia is noted. There are small to moderate pleural effusi ons with bibasilar atelectasis. Intralobular septal thickening is suggested at the lung bases. Liver: The unenhanced liver is normal in size, contour, and attenuation. There is mild intrahepatic b iliary ductal dilatation. Gallbladder: Surgically absent noting clips in the gallbladder fossa. Spleen: Normal in size and attenuation. Pancreas: The unenhanced pancreas is moderately atrophic and grossly unremarkable. Adrenal glands: Nodular thickening of the adrenal glands is similar to previous. Kidneys: There is marked and asymmetric cortical atrophy of the right kidney as compared to the left. There are no renal calculi identified. Bilateral renal cysts measure up to 2.0 cm. Scattered subcent imeter complex/hyperdense cysts are noted. Abdominal vasculature: There is advanced atherosclerotic calcification and ectasia of the abdominal a julio. 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 Bowel: There are distended, fluid-filled, and fecalized loops of small bowel in the pelvis which elif ure up to 3.6 cm in diameter. The distal small bowel is decompressed, and the appearance suggests bow el obstruction. A discrete transition point is not identified. There is no pneumatosis intestinalis o r portal venous gas. No focally thick walled bowel loops are identified. There are scattered colonic diverticula without CT evidence of acute diverticulitis. The appendix is normal as visualized. Metal lic foreign bodies are noted in the cecum. Peritoneum: There is no intraperitoneal free air. Trace free fluid is noted in the pelvis. There is a fat-containing umbilical hernia. Lymphadenopathy: None. Pelvic viscera: The bladder is partially decompressed around a Gamble catheter. Foci of intraluminal g as are likely related to instrumentation. The prostate gland is mildly enlarged and heterogeneous. Th e bladder wall is mildly thickened and trabeculated. Skeletal structures: The skeletal structures are osteopenic. There is mild to moderate lumbosacral sp ondylosis. No lytic or blastic lesions are seen. IMPRESSION: 1. Suboptimal examination without oral and IV contrast. The examination is also compromised by motion artifact. 2. The distal/terminal small bowel is decompressed. The upstream small bowel loops are distended and fluid-filled, and the appearance is consistent with a small bowel obstruction. A discrete transition point is not identified. 3. No focally thick walled bowel loops are identified. There is no pneumatosis intestinalis, portal v enous gas, or intraperitoneal free air. 4. Trace free fluid is noted in the pelvis. 5. Cardiomegaly with evidence of congestive failure. 6. There are small to moderate pleural effusions with bibasilar atelectasis. 7. Additional findings as above. ACT 112: Negative or not required by law. Electronically signed by: Ivan Joseph M.D. 01/13/2020 10:20 AM
[2020-01-13] MEDS: UMECLIDINIUM BROMIDE 62.5MCG/BLISTER 7 PUFFS/INHALER INH SCH (10:34)
--- NOTE | 2020-01-13 10:44 | Hospitalist Progress Note ---
Date of Service January 13, 2020 Assessment & Plan Admission and Anticipated Discharge Date Admission Date: January 12, [address] abdomen pelvis without IV contrast report reviewed The distal/terminal small bowel is decompressed. The upstream small bowel loops are distended and fluid-filled, and the appearance is consistent with a small bowel obstruction. A discrete transition point is not identified. No focally thick walled bowel loops are identified. There is no pneumatosis intestinalis, portal venous gas, or intraperitoneal free air. Patient has been complaining of chronic midabdominal pain intermittently on and off for last 1 week, had severe abdomen pain and spasm yesterday /got relief with IV morphine This morning did not had any complaint of abdominal pain, no nausea vomiting Ordered for n.p.o. except for sips of water and meds Continue IV morphine as needed for abdominal pain We will order NG tube insertion with any evidence of nausea or vomiting-patient is asymptomatic now Surgery consult requested Patient's family/daughter will be updated regarding the CT abdomen findings over phone Rosa Whitehead MD Results & Data ([facility]) Vital Signs (Past 12 Hours) Vital Signs Temp Pulse Pulse Resp BP Pulse Ox 01/13/20 10:14 72 01/13/20 09:00 73 18 98 01/13/20 07:28 36.8 C 71 20 128/51 L 96 01/13/20 07:10 86 26 H 97 01/13/20 07:09 86 26 H 97 01/13/20 03:23 37.1 C 67 22 131/64 98 01/13/20 02:34 69 22 96 01/13/20 02:32 69 22 96 01/12/20 23:30 37.4 C 67 26 H 118/62 97 01/12/20 23:13 69 29 H 98 01/12/20 23:12 69 29 H 98 01/12/20 22:46 37.3 C 79 30 H 159/81 H 95
[2020-01-13] MEDS ORDERED: Nursing to Pharmacy Communication ONE (11:25)
--- NOTE | 2020-01-13 11:44 | Surgery Consultation ---
Date of Consultation January 13, 2020 Assessment & Plan (1) Epigastric abdominal pain: Ileus vs SBO. Currently not symptomatic but would keep NPO for today, NG if he develops N/V. Will continue to follow. History of Present Illness Attending Physician: Rosa Whitehead MD History of Present Illness 74 y/o male with SOB admitted yesterday for resp failure, CHF, CKD. Apparently c/o abdominal pain which led to CT that shows SBO. He denies abdominal at present. No nausea or vomiting. Had BM last night, no recent flatus he can recall. Only previous abdominal surgery was cholecystectomy. Allergies Allergy/AdvReac Type Severity Reaction Status Date / Time No Known Allergies Allergy Verified 01/12/20 08:02 Home Medications Home Medications Medication Instructions Recorded Confirmed Type Tradjenta 5 mg PO QAM 07/31/19 01/12/20 History atorvastatin 40 mg PO QPM 07/31/19 01/12/20 History carvedilol 12.5 mg PO BIDM 07/31/19 01/12/20 History cholecalciferol (vitamin D3) 1,000 unit PO QAM 07/31/19 01/12/20 History [Vitamin D3] citalopram 40 mg PO QPM 07/31/19 01/12/20 History dicyclomine 10 mg PO TID 07/31/19 01/12/20 History finasteride 5 mg PO HS 07/31/19 01/12/20 History hydralazine 75 mg PO BID 07/31/19 01/12/20 History tamsulosin 0.4 mg PO HS 07/31/19 01/12/20 History albuterol sulfate 2 puff INHALATION Q6H PRN 12/16/19 01/12/20 History loratadine 10 mg PO DAILY PRN 12/16/19 01/12/20 History aspirin 81 mg PO QAM 01/06/20 01/12/20 History pantoprazole 40 mg PO QAM 01/06/20 01/12/20 History amlodipine 10 mg PO HS #30 tab 01/08/20 01/12/20 Rx diphenhydramine-zinc acetate 1 appln TOP TID PRN #28.3 gm 01/08/20 01/12/20 Rx [Benadryl Extra Strength] triamcinolone acetonide 1 appln TOP BID #15 gm 01/08/20 01/12/20 Rx Patient History Medical History Anxiety and depression BPH (benign prostatic hyperplasia) Chronic anemia CKD (chronic kidney disease), stage IV Diabetes mellitus, type 2 Hyperlipidemia Hypertension Osteoarthritis PAD (peripheral artery disease) Tobacco abuse Surgical History Cardiac murmur History of cataract surgery RT/LEFT History of cholecystectomy History of colonoscopy History of esophagogastroduodenoscopy (EGD) History of procedure for peripheral vascular disease LEFT LEG (STENT PLACED/REASON FOR TAKING PLAVIX) History of tooth extraction Family History Brother Cancer Social History Preferred Language: Lithuanian Communication Ability: Effective Flow Specialist Required: No Beliefs That Will Affect Care: None Current Living Situation: Significant Other Other Information That Helps Us Care for You: No Feels Safe at Home: Yes Safety Concerns: Feels Safe At This Time Smoking Status: Current every day smoker Tobacco Type: cigarettes ; Cigarettes Per Day: 10 ; Second Hand Exposure: No ; Hx Alcohol Use: No Hx Substance Use: No Review of Systems Gastrointestinal: no nausea and no vomiting Physical Exam Constitutional: comfortable Gastrointestinal (Abdomen): Inspection/Auscultation: + abdomen distended (mild) and + abdominal surgical scar (right subcostal) Percussion/Palpation: abdomen soft; abdomen nontender Results & Data Vital Signs (Past 12 Hours) Vital Signs Temp Pulse Pulse Resp BP Pulse Ox 01/13/20 11:14 67 18 96 01/13/20 11:08 36.9 C 66 18 124/54 L 98 01/13/20 10:14 72 01/13/20 09:00 73 18 98 01/13/20 07:28 36.8 C 71 20 128/51 L 96 01/13/20 07:10 86 26 H 97 01/13/20 07:09 86 26 H 97 01/13/20 03:23 37.1 C 67 22 131/64 98 01/13/20 02:34 69 22 96 01/13/20 02:32 69 22 96 PG Care Time/CCT Total # of Minutes Spent Total Time Spent with Patient: Total time spent is greater than 50% in coordination of care (as documented) at patient's floor/unit and/or counseling patient: Coding Level of Care Code 03520 Initial Inpt Care Lvl 1 Diagnoses Epigastric abdominal pain R10.13
--- NOTE | 2020-01-13 12:17 | Consultation ---
Date of Consultation January 13, 2020 Assessment & Plan (1) Renal failure: Pt with acute on chronic kidney disease and requiring HD. L forearm AVF feels usable for HD and US demonstrates no areas of stenosis that would benefit from fistulagram. Recommend another attempt to use L forearm AVF for HD. Please call if needed. Patient was seen, examined, and chart reviewed. Agree with exam and treatment plan of the Vascular PA. Acute renal failure type: unspecified Chronic kidney disease stage: unspecified stage Renal failure chronicity: acute on chronic Qualified Code(s): N17.9 - Acute kidney failure, unspecified; N18.9 - Chronic kidney disease, unspecified History of Present Illness Reason for Consultation: access for HD Attending Physician: Rosa Whitehead MD History of Present Illness 74 yo m with multiple medical problems, including CKD V, HTN, DMII, CHF, PAD, BPH, admitted with acute hypoxemia, CHF, renal failure, seen in consultation today for access for HD. Per pt, he had a L forearm AVF created at [facility] in past, unsure how long ago. States they attempted to use it uppon arrival here, but were unable. Pt states feeling improved today since diuresis and is breathing easier. Admits fatigue/malaise, poor appetite, edema. Denies DOW, fever, chills chest pain, abd pain, N/V, rest pain, claudication, other complaints. Allergies Allergy/AdvReac Type Severity Reaction Status Date / Time No Known Allergies Allergy Verified 01/12/20 08:02 Home Medications Home Medications Medication Instructions Recorded Confirmed Type Tradjenta 5 mg PO QAM 07/31/19 01/12/20 History atorvastatin 40 mg PO QPM 07/31/19 01/12/20 History carvedilol 12.5 mg PO BIDM 07/31/19 01/12/20 History cholecalciferol (vitamin D3) 1,000 unit PO QAM 07/31/19 01/12/20 History [Vitamin D3] citalopram 40 mg PO QPM 07/31/19 01/12/20 History dicyclomine 10 mg PO TID 07/31/19 01/12/20 History finasteride 5 mg PO HS 07/31/19 01/12/20 History hydralazine 75 mg PO BID 07/31/19 01/12/20 History tamsulosin 0.4 mg PO HS 07/31/19 01/12/20 History albuterol sulfate 2 puff INHALATION Q6H PRN 12/16/19 01/12/20 History loratadine 10 mg PO DAILY PRN 12/16/19 01/12/20 History aspirin 81 mg PO QAM 01/06/20 01/12/20 History pantoprazole 40 mg PO QAM 01/06/20 01/12/20 History amlodipine 10 mg PO HS #30 tab 01/08/20 01/12/20 Rx diphenhydramine-zinc acetate 1 appln TOP TID PRN #28.3 gm 01/08/20 01/12/20 Rx [Benadryl Extra Strength] triamcinolone acetonide 1 appln TOP BID #15 gm 01/08/20 01/12/20 Rx Patient History Medical History Anxiety and depression BPH (benign prostatic hyperplasia) Chronic anemia CKD (chronic kidney disease), stage IV Diabetes mellitus, type 2 Hyperlipidemia Hypertension Osteoarthritis PAD (peripheral artery disease) Tobacco abuse Surgical History Cardiac murmur History of cataract surgery RT/LEFT History of cholecystectomy History of colonoscopy History of esophagogastroduodenoscopy (EGD) History of procedure for peripheral vascular disease LEFT LEG (STENT PLACED/REASON FOR TAKING PLAVIX) History of tooth extraction Family History Brother Cancer Social History Preferred Language: Tajik Communication Ability: Effective Signal Mechanic Required: No Beliefs That Will Affect Care: None Current Living Situation: Significant Other Other Information That Helps Us Care for You: No Feels Safe at Home: Yes Safety Concerns: Feels Safe At This Time Smoking Status: Current every day smoker Tobacco Type: cigarettes ; Cigarettes Per Day: 10 ; Second Hand Exposure: No ; Hx Alcohol Use: No Hx Substance Use: No Review of Systems Review of Systems: All systems reviewed & are unremarkable except as noted in HPI & below Physical Exam Constitutional: WD/WN, vitals as above not in distress Eyes: PERRL, conjunctivae normal, anicteric sclerae ENMT: external ear and nose normal, oropharynx normal Ears: no hearing impairment Neck: trachea midline, no thyromegaly Respiratory: normal respiratory effort Auscultation: + diminished lung sounds and + crackles Cardiovascular: Rate/Rhythm: regular rate and regular rhythm Vessels: posterior tibial pulses present, dorsalis pedis pulses present, brachial pulses present and radial pulses present; + abnormal peripheral pulses Extremities: normal capillary refill, + edema and + AV fistula (L forearm + thrill/bruit noted throughout) Gastrointestinal (Abdomen): normal bowel sounds, soft, nontender, no hepatosplenomegaly Musculoskeletal: no cyanosis or clubbing, extremities motor strength 5/5 Skin: no rashes, warm and dry Neurologic: moves all extremities, awake and + confused (mildly); no focal motor deficits Psychiatric: Orientation: alert and oriented x 3 Affect: + flat affect Results & Data Vital Signs (Past 12 Hours) Vital Signs Temp Pulse Pulse Resp BP Pulse Ox 01/13/20 11:14 67 18 96 01/13/20 11:08 36.9 C 66 18 124/54 L 98 01/13/20 10:14 72 01/13/20 09:00 73 18 98 01/13/20 07:28 36.8 C 71 20 128/51 L 96 01/13/20 07:10 86 26 H 97 01/13/20 07:09 86 26 H 97 01/13/20 03:23 37.1 C 67 22 131/64 98 01/13/20 02:34 69 22 96 01/13/20 02:32 69 22 96
--- NOTE | 2020-01-13 15:21 | Electrocardiogram Report ---
Test Reason : Blood Pressure : / mmHG Vent. 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
--- NOTE | 2020-01-13 15:29 | Cardiology Progress Note ---
Date of Service January 13, 2020 Assessment & Plan (1) Acute respiratory failure with hypoxia: (2) CKD (chronic kidney disease) stage 5, GFR less than 15 ml/min: (3) CHF (congestive heart failure): (4) Diabetes mellitus, type 2: The patient is anemic and given his multiple medical problems he benefit from a transfusion either now or on dialysis. His cardiac troponins have increased slightly but I believe that is still due to renal failure. He has no new cardiac complaints today. He is currently receiving a nebulizer treatment and appears to be comfortable. No additional cardiac testing is planned at this time. Subjective The patient has no new complaints today he appears to be comfortable and the plan is for revision of his fistula tomorrow followed by dialysis. Review of Systems Review of Systems: All systems reviewed & are unremarkable except as noted in HPI & below Nothing additional to add. Physical Exam Physical Exam: General: no acute distress and stated age Head: normocephalic, no masses, lesions, tenderness or abnormalities Eyes: conjunctiva are pink and non-injected, sclera clear Neck: supple, no adenopathy, no bruits, normal jugular venous pulse, no hepatojugular reflux Chest: normal shape and normal respiratory effort Lungs: clear to auscultation and percussion Cardiac Exam: - regular rate & rhythm, no murmurs gallops or rubs - normal S1, normal S2 Pulses: 2(+) throughout Abdomen: abdomen soft, non-tender, no abnormal masses and no hepatosplenomegaly Musculoskeletal: no gait disturbance, no joint inflammation, no deforming arthritis Extremities: no edema and no cyanosis Neuro: grossly normal exam Results & Data Vital Signs (Past 12 Hours) Vital Signs Temp Pulse Pulse Resp BP Pulse Ox 01/13/20 15:08 66 18 97 01/13/20 13:55 74 141/76 H 96 01/13/20 11:14 67 18 96 01/13/20 11:08 36.9 C 66 18 124/54 L 98 01/13/20 10:14 72 01/13/20 09:00 73 18 98 01/13/20 07:28 36.8 C 71 20 128/51 L 96 01/13/20 07:10 86 26 H 97 01/13/20 07:09 86 26 H 97 Laboratory Results Laboratory Results - last 24 hr 01/12/20 01/12/20 01/12/20 13:03 16:36 19:04 WBC RBC Hgb Hct MCV MCH MCHC RDW Std Deviation RDW Coeff of Danny Plt Count MPV Immature Gran % (Auto) Neut % (Auto) Lymph % (Auto) [place] % (Auto) Eos % (Auto) Baso % (Auto) Immature Gran # (Auto) Neut # (Auto) Lymph # (Auto) [place] # (Auto) Eos # (Auto) Baso # (Auto) Echinocytes Sodium 135 L Potassium 4.5 Chloride 106 Carbon Dioxide 17 L Anion Gap 12.0 H BUN 78 H Creatinine 4.93 H* Est Cr Clr Drug Dosing 12.7 Est GFR ( Amer) 12.3 Est GFR (Non-Af Amer) 10.6 BUN/Creatinine Ratio 15.9 Glucose 228 H POC Glucose 193 H Lactate Calcium 8.9 Magnesium Total Bilirubin AST ALT Alkaline Phosphatase Troponin I 0.047 H* 0.075 H* Total Protein Albumin Globulin Albumin/Globulin Ratio 01/12/20 01/12/20 01/12/20 19:04 19:04 20:01 WBC 9.25 RBC 2.58 L Hgb 7.6 L Hct 24.2 L MCV 93.8 MCH 29.5 MCHC 31.4 L RDW Std Deviation 46.1 RDW Coeff of Danny 13.6 Plt Count 181 MPV 9.5 Immature Gran % (Auto) Neut % (Auto) Lymph % (Auto) [place] % (Auto) Eos % (Auto) Baso % (Auto) Immature Gran # (Auto) Neut # (Auto) Lymph # (Auto) [place] # (Auto) Eos # (Auto) Baso # (Auto) Echinocytes Sodium Potassium Chloride Carbon Dioxide Anion Gap BUN Creatinine Est Cr Clr Drug Dosing Est GFR ( Amer) Est GFR (Non-Af Amer) BUN/Creatinine Ratio Glucose POC Glucose 251 H Lactate 1.5 Calcium Magnesium Total Bilirubin AST ALT Alkaline Phosphatase Troponin I Total Protein Albumin Globulin Albumin/Globulin Ratio 01/13/20 01/13/20 01/13/20 06:30 06:30 07:28 WBC 6.42 RBC 2.50 L Hgb 7.4 L Hct 23.9 L MCV 95.6 MCH 29.6 MCHC 31.0 L RDW Std Deviation 47.0 H RDW Coeff of Danny 13.5 Plt Count 186 MPV 10.1 Immature Gran % (Auto) 0.3 Neut % (Auto) 67.0 Lymph % (Auto) 12.3 [place] % (Auto) 19.9 Eos % (Auto) 0.0 Baso % (Auto) 0.5 Immature Gran # (Auto) 0.02 Neut # (Auto) 4.30 Lymph # (Auto) 0.79 L [place] # (Auto) 1.28 H Eos # (Auto) 0.00 Baso # (Auto) 0.03 Echinocytes 1+ Sodium 136 Potassium 4.5 Chloride 107 Carbon Dioxide 19 L Anion Gap 10.0 BUN 86 H Creatinine 5.41 H* D Est Cr Clr Drug Dosing 11.6 Est GFR ( Amer) 11.0 Est GFR (Non-Af Amer) 9.5 BUN/Creatinine Ratio 15.9 Glucose 158 H POC Glucose 176 H Lactate Calcium 8.7 Magnesium 2.0 Total Bilirubin 0.7 AST 13 L ALT 35 Alkaline Phosphatase 70 Troponin I Total Protein 6.9 Albumin 3.3 L Globulin 3.6 Albumin/Globulin Ratio 0.9 01/13/20 11:59 WBC RBC Hgb Hct MCV MCH MCHC RDW Std Deviation RDW Coeff of Danny Plt Count MPV Immature Gran % (Auto) Neut % (Auto) Lymph % (Auto) [place] % (Auto) Eos % (Auto) Baso % (Auto) Immature Gran # (Auto) Neut # (Auto) Lymph # (Auto) [place] # (Auto) Eos # (Auto) Baso # (Auto) Echinocytes Sodium Potassium Chloride Carbon Dioxide Anion Gap BUN Creatinine Est Cr Clr Drug Dosing Est GFR ( Amer) Est GFR (Non-Af Amer) BUN/Creatinine Ratio Glucose POC Glucose 155 H Lactate Calcium Magnesium Total Bilirubin AST ALT Alkaline Phosphatase Troponin I Total Protein Albumin Globulin Albumin/Globulin Ratio Medications Administered Current Inpatient Medications Acetaminophen (Tylenol) 650 mg PO Q4H PRN PRN Reason: Pain or Fever Stop: 02/11/20 10:53 Al Hydrox/Mg Hydrox/Simethicone (Maalox) 15 ml PO Q4H PRN PRN Reason: Dyspepsia Stop: 02/11/20 10:53 Albuterol (Ventolin Hfa) 2 puffs INH Q6H PRN PRN Reason: Shortness Of Breath Or Wheezing Stop: 02/11/20 10:53 Amlodipine Besylate (Norvasc) 10 mg PO HS [facility]Y Stop: 02/11/20 20:59 Last Admin: 01/12/20 21:32 Dose: 10 mg Documented by: Aspirin (Ecotrin Ectab) 81 mg PO QAM [facility] Stop: 02/12/20 08:59 Last Admin: 01/13/20 08:28 Dose: 81 mg Documented by: Atorvastatin Calcium (Lipitor) 40 mg PO QPM [facility]Y Stop: 02/11/20 20:59 Last Admin: 01/12/20 21:31 Dose: 40 mg Documented by: Carvedilol (Coreg) 12.5 mg PO BIDM [facility] Stop: 02/11/20 16:59 Last Admin: 01/13/20 08:29 Dose: 12.5 mg Documented by: Citalopram Hydrobromide (Celexa) 40 mg PO QPM [facility] Stop: 02/11/20 20:59 Last Admin: 01/12/20 21:32 Dose: 40 mg Documented by: Dextrose (Dextrose 50%) 25 - 50 ml IV UD PRN; Protocol PRN Reason: Hypoglycemia Protocol Stop: 02/11/20 10:53 Dicyclomine HCl (Bentyl) 10 mg PO TID PRN PRN Reason: Itching Stop: 02/11/20 13:59 Finasteride (Proscar) 5 mg PO HS [facility] Stop: 02/11/20 20:59 Last Admin: 01/12/20 21:32 Dose: 5 mg Documented by: Fluticasone/Vilanterol (Breo Ellipta 200/25 Mcg Inh) 1 puffs INH DAILY [facility] Stop: 02/13/20 08:59 Glucagon (Glucagen) 1 mg SQ UD PRN; Protocol PRN Reason: Hypoglycemia Protocol Stop: 02/11/20 10:53 Glucose (Dex4 Glucose) 4 - 8 tabs PO UD PRN; Protocol PRN Reason: Hypoglycemia Protocol Stop: 02/11/20 10:53 Glucose (Glucose 40%) 15 - 30 gm PO UD PRN; Protocol PRN Reason: Hypoglycemia Protocol Stop: 02/11/20 10:53 Heparin Sodium (Porcine) (Heparin Sodium (Porcine)) 5,000 units SQ Q8 [facility] Stop: 02/11/20 13:59 Last Admin: 01/13/20 13:50 Dose: 5,000 units Documented by: Hydralazine HCl (Hydralazine Hcl) 10 mg IV Q8 PRN PRN Reason: SBP > 160 Stop: 02/11/20 11:44 Hydralazine HCl (Apresoline) 75 mg PO TID [facility] Stop: 02/11/20 16:59 Last Admin: 01/13/20 13:50 Dose: 75 mg Documented by: Furosemide 100 mg/ Dextrose 100 mls @ 20 mls/hr IV .Q5H [facility] Stop: 02/11/20 16:44 Last Admin: 01/13/20 13:48 Dose: 20 mg/hr, 20 mls/hr Documented by: Methylprednisolone 40 mg/ (Syringe) 0.64 mls @ 1.5 mls/min IV Q8H [facility] Stop: 02/12/20 16:59 Insulin Aspart (Novolog Flexpen) 0 units SC Q6 [facility] Stop: 02/12/20 11:59 Last Admin: 01/13/20 12:00 Dose: Not Given Documented by: Insulin Glargine (Lantus Solostar Pen) 0 - 7 units SC Q12H [facility] Stop: 02/11/20 20:59 Last Admin: 01/13/20 08:30 Dose: 4 units Documented by: Levalbuterol HCl (Xopenex 1.25mg/0.5ml Neb) 1.25 mg NEB Q4R [facility] Stop: 02/11/20 11:59 Last Admin: 01/13/20 15:07 Dose: 1.25 mg Documented by: Levalbuterol HCl (Xopenex 1.25mg/3ml Neb) 1.25 mg NEB Q2R PRN PRN Reason: wheeze Stop: 02/11/20 10:38 Last Admin: 01/13/20 08:58 Dose: 1.25 mg Documented by: Loratadine (Claritin) 10 mg PO DAILY PRN PRN Reason: Itching Stop: 02/11/20 10:53 Magnesium Hydroxide (Milk Of Magnesia) 30 ml PO Q12H PRN PRN Reason: Constipation Stop: 02/11/20 10:53 Miscellaneous (Carbohydrates For Hypoglycemia) 15 - 30 gm PO UD PRN PRN Reason: Hypoglycemia Protocol Stop: 02/11/20 10:53 Morphine Sulfate (Morphine Sulfate) 1 mg IV Q4 PRN PRN Reason: Pain Stop: 01/26/20 14:25 Last Admin: 01/13/20 05:24 Dose: 1 mg Documented by: Nitroglycerin (Nitrostat) 0.4 mg SL UD PRN PRN Reason: Chest Pain Stop: 02/11/20 10:53 Nitroglycerin (Nitro-Bid 2%) 1 inch EXT Q6H [facility] Stop: 02/11/20 16:59 Last Admin: 01/13/20 11:35 Dose: 1 inch Documented by: Ondansetron HCl (Zofran) 4 mg IV Q6H PRN PRN Reason: Nausea Stop: 02/11/20 10:53 Pantoprazole Sodium (Protonix) 40 mg PO BID [facility] Stop: 02/11/20 20:59 Last Admin: 01/13/20 08:29 Dose: 40 mg Documented by: Polyethylene Glycol (Miralax Powder Packet) 17 gm PO DAILY PRN PRN Reason: Constipation Stop: 02/11/20 10:53 Tamsulosin HCl (Flomax) 0.4 mg PO HS [facility] Stop: 02/11/20 20:59 Last Admin: 01/12/20 21:31 Dose: 0.4 mg Documented by: Triamcinolone Acetonide (Kenalog 0.1%) 1 appln TOP BID [facility] Stop: 02/11/20 20:59 Last Admin: 01/13/20 08:30 Dose: 1 appln Documented by: Umeclidinium [place] (Incruse Ellipta) 1 puffs INH QAM [facility] Stop: 02/12/20 09:59 Last Admin: 01/13/20 10:34 Dose: 1 puffs Documented by: Vitamin D (Vitamin D3) 1,000 units PO QAM [facility] Stop: 02/12/20 08:59 Last Admin: 01/13/20 08:28 Dose: 1,000 units Documented by: Zinc Acetate/Diphenhydramine (Benadryl Extra Strength) 1 appln EXT TID PRN PRN Reason: itching Stop: 02/11/20 10:53
[2020-01-13] MEDS: methylPREDNISolone 40 MG in SYRINGE 0 ML IV SCH (17:47)
[2020-01-13] MEDS: ATORVASTATIN 40 MG TAB PO SCH (21:27)
[2020-01-13] MEDS: FINASTERIDE 5 MG TAB PO SCH (21:27)
[2020-01-13] MEDS: TAMSULOSIN HCL 0.4 MG CAP PO SCH (21:27)
[2020-01-13] MEDS: CITALOPRAM 40 MG TAB PO SCH (21:27)
[2020-01-13] MEDS: AMLODIPINE BESYLATE 5 MG TAB PO SCH (21:29)
[2020-01-14] MEDS: NITROGLYCERIN 2% OINTMENT 30GM TUBE EXT SCH ×4 (00:32→17:14)
[2020-01-14] MEDS: INSULIN ASPART 100 UNITS/ML 3 ML PEN SC SCH ×5 (00:33→20:07)
[2020-01-14] MEDS: methylPREDNISolone 40 MG in SYRINGE 0 ML IV SCH ×3 (00:34→17:08)
[2020-01-14] MEDS: LEVALBUTEROL 1.25MG/0.5ML NEB NEB SCH ×3 (03:12→11:25)
[2020-01-14] MEDS: FUROSEMIDE 100 MG in DEXTROSE 5% 90 ML IV SCH ×4 (04:35→20:06)
[2020-01-14] MEDS: HEPARIN SOD 5,000 UNIT/0.5 ML VIAL SQ SCH ×2 (06:32→14:51)
--- NOTE | 2020-01-14 08:07 | Surgery Progress Note ---
Date of Service January 14, 2020 Assessment & Plan (1) Epigastric abdominal pain: Clinically improving will check KUB, probably start on clear liquids Patient seen. As above. Feeling much better. No pain or nausea. KUB shows gas in of the colon. No evidence of small bowel obstruction. We will start clear liquid diet and see how he does. Subjective feeling better, no nausea or pain, passing flatus Physical Exam Physical Exam: more alert, interactive Gastrointestinal (Abdomen): Inspection/Auscultation: + abdomen distended (improved) Percussion/Palpation: abdomen soft; abdomen nontender Results & Data Vital Signs (Past 12 Hours) Vital Signs Temp Pulse Pulse Resp BP Pulse Ox 01/14/20 07:43 70 01/14/20 06:53 70 16 98 01/14/20 03:23 36.7 C 67 19 116/67 95 01/14/20 03:12 74 20 95 01/13/20 23:54 36.7 C 66 19 109/47 L 94 01/13/20 23:18 69 20 98 PG Care Time/CCT Total # of Minutes Spent Total Time Spent with Patient: Total time spent is greater than 50% in coordination of care (as documented) at patient's floor/unit and/or counseling patient: Coding Level of Care Code 87324 Subseq Hosp Care Lvl 1 Diagnoses Epigastric abdominal pain R10.13
[2020-01-14 08:56] LABS: Albumin Globulin Ratio 0.9 (0.9-2); BUN Creatinine Ratio 19.4 (10-20); Bilirubin,Total 0.5 mg/dl (0.2-1); Calcium 8.6 mg/dl (8.5-10.1); Creatinine Clr Calc Pharmacy 11.1 ml/min; Est GFR (African American) 10.4; Est GFR (Non-African American) 8.9; Globulin 3.5 gm/dl (2.5-4.0); Magnesium 2.1 mg/dl (1.8-2.4); Potassium 3.5 mmol/L (3.5-5.1); Total Protein 6.5 gm/dl (6.4-8.2)
[2020-01-14 09:03] LABS: Acanthocytes 1+; Hematocrit (blood only) 22.8 % (42-52); Hemoglobin 7.5 g/dL (14.0-18.0); Immature Granulocytes # (auto) 0.02 K/uL (0.00-0.02); Immature Granulocytes % (auto) 0.4 %; Lymphocytes # (auto) 0.56 K/uL (1.2-3.4); Lymphocytes % (auto) 10.1 %; Mean Corpuscular Hemoglobin 30.2 pg (25-34); Mean Corpuscular Hgb Conc 32.9 g/dL (32-36); Mean Corpuscular Volume 91.9 fL (80-100); Mean Platelet Volume 10.2 fL (7.4-10.4); Monocytes % (auto) 9.1 %; Neutrophils # (auto) 4.44 K/uL (1.4-6.5); Neutrophils % (auto) 80.4 %; Platelet Count 197 K/uL (130-400); RDW Coefficient of Variation 13.3 % (11.5-14.5); RDW Standard Deviation 44.9 fL (36.4-46.3); Red Blood Count 2.48 M/uL (4.7-6.1); White Blood Count 5.52 K/uL (4.8-10.8)
[2020-01-14] MEDS: UMECLIDINIUM BROMIDE 62.5MCG/BLISTER 7 PUFFS/INHALER INH SCH (09:03)
[2020-01-14] MEDS: ASPIRIN 81 MG ECTAB PO SCH (09:03)
[2020-01-14] MEDS: CHOLECALCIFEROL 1,000 UNITS 25 MCG TAB PO SCH (09:03)
[2020-01-14] MEDS: FLUTICASONE/VILANTEROL 200/25MCG 14 PUFFS/INHALER INH SCH (09:04)
[2020-01-14] MEDS: INSULIN GLARGINE SOLOSTAR 100 UNITS/ML 3 ML PEN SC SCH ×2 (09:04→20:07)
[2020-01-14] MEDS: PANTOprazole 40 MG TAB PO SCH ×2 (09:04→20:06)
[2020-01-14] MEDS: carvediloL 12.5 MG TAB PO SCH ×2 (09:05→17:08)
[2020-01-14] MEDS: TRIAMCINOLONE ACET 0.1% CR 15 GM TUBE TOP SCH ×2 (09:05→20:06)
--- NOTE | 2020-01-14 09:55 | Cardiology Progress Note ---
Date of Service January 14, 2020 Assessment & Plan (1) Acute respiratory failure with hypoxia: (2) CKD (chronic kidney disease) stage 5, GFR less than 15 ml/min: (3) CHF (congestive heart failure): (4) Diabetes mellitus, type 2: Patient is currently stable from a cardiac standpoint. Patient is stable enough for the OR. Subjective The patient had an uneventful night. From a cardiac standpoint he remained stable. He is going to the OR today to have his fistula revised. Review of Systems Review of Systems: All systems reviewed & are unremarkable except as noted in HPI & below Nothing additional to add. Physical Exam Physical Exam: General: no acute distress and stated age Head: normocephalic, no masses, lesions, tenderness or abnormalities Eyes: conjunctiva are pink and non-injected, sclera clear Neck: supple, no adenopathy, no bruits, normal jugular venous pulse, no hepatojugular reflux Chest: normal shape and normal respiratory effort Lungs: clear to auscultation and percussion Cardiac Exam: - regular rate & rhythm, systolic murmur- normal S1, normal S2 Pulses: 2(+) throughout Abdomen: abdomen soft, non-tender, no abnormal masses and no hepatosplenomegaly Musculoskeletal: no gait disturbance, no joint inflammation, no deforming arthritis Extremities: no edema and no cyanosis Neuro: grossly normal exam Results & Data Vital Signs (Past 12 Hours) Vital Signs Temp Pulse Pulse Resp BP Pulse Ox 01/14/20 09:44 36.6 C 68 127/58 L 93 01/14/20 07:43 70 01/14/20 06:53 70 16 98 01/14/20 03:23 36.7 C 67 19 116/67 95 01/14/20 03:12 74 20 95 01/13/20 23:54 36.7 C 66 19 109/47 L 94 01/13/20 23:18 69 20 98 Laboratory Results Laboratory Results - last 24 hr 01/13/20 01/13/20 01/13/20 11:59 18:06 21:28 WBC RBC Hgb Hct MCV MCH MCHC RDW Std Deviation RDW Coeff of Danny Plt Count MPV Immature Gran % (Auto) Neut % (Auto) Lymph % (Auto) [place] % (Auto) Eos % (Auto) Baso % (Auto) Immature Gran # (Auto) Neut # (Auto) Lymph # (Auto) [place] # (Auto) Eos # (Auto) Baso # (Auto) Acanthocytes (Spur) Sodium Potassium Chloride Carbon Dioxide Anion Gap BUN Creatinine Est Cr Clr Drug Dosing Est GFR ( Amer) Est GFR (Non-Af Amer) BUN/Creatinine Ratio Glucose POC Glucose 155 H 225 H 216 H Calcium Magnesium Total Bilirubin AST ALT Alkaline Phosphatase Total Protein Albumin Globulin Albumin/Globulin Ratio 01/14/20 01/14/20 01/14/20 00:26 06:13 07:53 WBC 5.52 RBC 2.48 L Hgb 7.5 L Hct 22.8 L MCV 91.9 MCH 30.2 MCHC 32.9 RDW Std Deviation 44.9 RDW Coeff of Danny 13.3 Plt Count 197 MPV 10.2 Immature Gran % (Auto) 0.4 Neut % (Auto) 80.4 Lymph % (Auto) 10.1 [place] % (Auto) 9.1 Eos % (Auto) 0.0 Baso % (Auto) 0.0 Immature Gran # (Auto) 0.02 Neut # (Auto) 4.44 Lymph # (Auto) 0.56 L [place] # (Auto) 0.50 Eos # (Auto) 0.00 Baso # (Auto) 0.00 Acanthocytes (Spur) 1+ Sodium Potassium Chloride Carbon Dioxide Anion Gap BUN Creatinine Est Cr Clr Drug Dosing Est GFR ( Amer) Est GFR (Non-Af Amer) BUN/Creatinine Ratio Glucose POC Glucose 229 H 243 H Calcium Magnesium Total Bilirubin AST ALT Alkaline Phosphatase Total Protein Albumin Globulin Albumin/Globulin Ratio 01/14/20 07:53 WBC RBC Hgb Hct MCV MCH MCHC RDW Std Deviation RDW Coeff of Danny Plt Count MPV Immature Gran % (Auto) Neut % (Auto) Lymph % (Auto) [place] % (Auto) Eos % (Auto) Baso % (Auto) Immature Gran # (Auto) Neut # (Auto) Lymph # (Auto) [place] # (Auto) Eos # (Auto) Baso # (Auto) Acanthocytes (Spur) Sodium 134 L Potassium 3.5 D Chloride 102 Carbon Dioxide 17 L Anion Gap 15.0 H BUN 110 H Creatinine 5.67 H* Est Cr Clr Drug Dosing 11.1 Est GFR ( Amer) 10.4 Est GFR (Non-Af Amer) 8.9 BUN/Creatinine Ratio 19.4 Glucose 219 H POC Glucose Calcium 8.6 Magnesium 2.1 Total Bilirubin 0.5 AST 17 ALT 35 Alkaline Phosphatase 62 Total Protein 6.5 Albumin 3.0 L Globulin 3.5 Albumin/Globulin Ratio 0.9 Medications Administered Current Inpatient Medications Acetaminophen (Tylenol) 650 mg PO Q4H PRN PRN Reason: Pain or Fever Stop: 02/11/20 10:53 Al Hydrox/Mg Hydrox/Simethicone (Maalox) 15 ml PO Q4H PRN PRN Reason: Dyspepsia Stop: 02/11/20 10:53 Albuterol (Ventolin Hfa) 2 puffs INH Q6H PRN PRN Reason: Shortness Of Breath Or Wheezing Stop: 02/11/20 10:53 Amlodipine Besylate (Norvasc) 10 mg PO HS RANDY Stop: 02/11/20 20:59 Last Admin: 01/13/20 21:29 Dose: 10 mg Documented by: Aspirin (Ecotrin Ectab) 81 mg PO QAM RANDY Stop: 02/12/20 08:59 Last Admin: 01/14/20 09:03 Dose: 81 mg Documented by: Atorvastatin Calcium (Lipitor) 40 mg PO QPM RANDY Stop: 02/11/20 20:59 Last Admin: 01/13/20 21:27 Dose: 40 mg Documented by: Carvedilol (Coreg) 12.5 mg PO BIDM RANDY Stop: 02/11/20 16:59 Last Admin: 01/14/20 09:05 Dose: 12.5 mg Documented by: Citalopram Hydrobromide (Celexa) 40 mg PO QPM RANDY Stop: 02/11/20 20:59 Last Admin: 01/13/20 21:27 Dose: 40 mg Documented by: Dextrose (Dextrose 50%) 25 - 50 ml IV UD PRN; Protocol PRN Reason: Hypoglycemia Protocol Stop: 02/11/20 10:53 Dicyclomine HCl (Bentyl) 10 mg PO TID PRN PRN Reason: Itching Stop: 02/11/20 13:59 Finasteride (Proscar) 5 mg PO HS RANDY Stop: 02/11/20 20:59 Last Admin: 01/13/20 21:27 Dose: 5 mg Documented by: Fluticasone/Vilanterol (Breo Ellipta 200/25 Mcg Inh) 1 puffs INH DAILY RANDY Stop: 02/13/20 08:59 Last Admin: 01/14/20 09:04 Dose: 1 puffs Documented by: Glucagon (Glucagen) 1 mg SQ UD PRN; Protocol PRN Reason: Hypoglycemia Protocol Stop: 02/11/20 10:53 Glucose (Dex4 Glucose) 4 - 8 tabs PO UD PRN; Protocol PRN Reason: Hypoglycemia Protocol Stop: 02/11/20 10:53 Glucose (Glucose 40%) 15 - 30 gm PO UD PRN; Protocol PRN Reason: Hypoglycemia Protocol Stop: 02/11/20 10:53 Heparin Sodium (Porcine) (Heparin Sodium (Porcine)) 5,000 units SQ Q8 RANDY Stop: 02/11/20 13:59 Last Admin: 01/14/20 06:32 Dose: Not Given Documented by: Hydralazine HCl (Hydralazine Hcl) 10 mg IV Q8 PRN PRN Reason: SBP > 160 Stop: 02/11/20 11:44 Hydralazine HCl (Apresoline) 75 mg PO TID [facility] Stop: 02/11/20 16:59 Last Admin: 01/14/20 09:04 Dose: 75 mg Documented by: Furosemide 100 mg/ Dextrose 100 mls @ 20 mls/hr IV .Q5H [facility] Stop: 02/11/20 16:44 Last Admin: 01/14/20 09:40 Dose: 20 mg/hr, 20 mls/hr Documented by: Methylprednisolone 40 mg/ (Syringe) 0.64 mls @ 1.5 mls/min IV Q8H [facility] Stop: 02/12/20 16:59 Last Admin: 01/14/20 09:03 Dose: 1.5 mls/min Documented by: Insulin Aspart (Novolog Flexpen) 0 units SC Q6 R[facility]Y Stop: 02/12/20 11:59 Last Admin: 01/14/20 06:32 Dose: 2 units Documented by: Insulin Glargine (Lantus Solostar Pen) 0 - 7 units SC Q12H [facility] Stop: 02/11/20 20:59 Last Admin: 01/14/20 09:04 Dose: 7 units Documented by: Levalbuterol HCl (Xopenex 1.25mg/0.5ml Neb) 1.25 mg NEB Q4R [facility] Stop: 02/11/20 11:59 Last Admin: 01/14/20 06:53 Dose: 1.25 mg Documented by: Levalbuterol HCl (Xopenex 1.25mg/3ml Neb) 1.25 mg NEB Q2R PRN PRN Reason: wheeze Stop: 02/11/20 10:38 Last Admin: 01/13/20 19:49 Dose: 1.25 mg Documented by: Loratadine (Claritin) 10 mg PO DAILY PRN PRN Reason: Itching Stop: 02/11/20 10:53 Magnesium Hydroxide (Milk Of Magnesia) 30 ml PO Q12H PRN PRN Reason: Constipation Stop: 02/11/20 10:53 Miscellaneous (Carbohydrates For Hypoglycemia) 15 - 30 gm PO UD PRN PRN Reason: Hypoglycemia Protocol Stop: 02/11/20 10:53 Morphine Sulfate (Morphine Sulfate) 1 mg IV Q4 PRN PRN Reason: Pain Stop: 01/26/20 14:25 Last Admin: 01/13/20 05:24 Dose: 1 mg Documented by: Nitroglycerin (Nitrostat) 0.4 mg SL UD PRN PRN Reason: Chest Pain Stop: 02/11/20 10:53 Nitroglycerin (Nitro-Bid 2%) 1 inch EXT Q6H [facility] Stop: 02/11/20 16:59 Last Admin: 01/14/20 06:32 Dose: 1 inch Documented by: Ondansetron HCl (Zofran) 4 mg IV Q6H PRN PRN Reason: Nausea Stop: 02/11/20 10:53 Pantoprazole Sodium (Protonix) 40 mg PO BID R[facility] Stop: 02/11/20 20:59 Last Admin: 01/14/20 09:04 Dose: 40 mg Documented by: Polyethylene Glycol (Miralax Powder Packet) 17 gm PO DAILY PRN PRN Reason: Constipation Stop: 02/11/20 10:53 Tamsulosin HCl (Flomax) 0.4 mg PO HS RANDY Stop: 02/11/20 20:59 Last Admin: 01/13/20 21:27 Dose: 0.4 mg Documented by: Triamcinolone Acetonide (Kenalog 0.1%) 1 appln TOP BID [facility] Stop: 02/11/20 20:59 Last Admin: 01/14/20 09:05 Dose: 1 appln Documented by: Umeclidinium [place] (Incruse Ellipta) 1 puffs INH QAM [facility] Stop: 02/12/20 09:59 Last Admin: 01/14/20 09:03 Dose: 1 puffs Documented by: Vitamin D (Vitamin D3) 1,000 units PO QAM [facility] Stop: 02/12/20 08:59 Last Admin: 01/14/20 09:03 Dose: 1,000 units Documented by: Zinc Acetate/Diphenhydramine (Benadryl Extra Strength) 1 appln EXT TID PRN PRN Reason: itching Stop: 02/11/20 10:53
--- NOTE | 2020-01-14 11:28 | XRay Report ---
XR KUB/Abdomen 1 view CLINICAL HISTORY: SBO COMPARISON STUDY: 03/15/2016, CT scan dated 01/13/2020 FINDINGS: There is gaseous prominence of both large and small bowel loops. No discrete transition zon es are visualized. There are surgical clips in the right upper quadrant consistent with a prior dale cystectomy. Note is made of vascular calcifications. IMPRESSION: Nonspecific bowel gas pattern with gaseous prominence of both large and small bowel loop s. ACT 112: Negative or not required by law. Electronically signed by: Darrel Fu M.D. 01/14/2020 11:27 AM
[2020-01-14] MEDS ORDERED: POTASSIUM CHLORIDE 20 MEQ TABCR PO STA (14:23)
--- NOTE | 2020-01-14 14:28 | Nephrology Progress Note ---
Date of Service January 14, 2020 Assessment & Plan (1) CKD (chronic kidney disease) stage 5, GFR less than 15 ml/min: Patient with CKD 5 not on HD but now with progressively worsening renal function and recurrent volume overload. He is still making urine but given hyperkalemia, acidosis and volume overload, will start him on HD. He has consented to dialysis. I explained risks and benefits of HD. Cannulation of AVF failed. He will need fistulogram before successful use of AVF. Will hold off HD for now and diurese him aggressively. Fo fistulogram today -Potassium chloride 40meq today (2) Acute respiratory failure with hypoxia: Due to pulmonary edema. He was net -3.9 L yesterday. He is wheezing and most likely has COPD exacerbation as well. Continue management for COPD and Lasix drip. (3) CHF (congestive heart failure): Reduce Lasix drip to 15mg/hr. Monitor input/output. Daily weight and renal diet (4) Hypertension: BP is controlled. Continue amlodipine and hydralazine. coreg to 25mg bid Admission and Anticipated Discharge Date Admission Date: January 12, 2020 Subjective Feels better. He is on room air, intermittently on BIPAP. no SOB. He was net negative 3.9 litres Review of Systems Review of Systems: All systems reviewed & are unremarkable except as noted in HPI & below Physical Exam Physical Exam: General exam: Appears comfortable, no acute distress HEENT: Pupils are equal and reactive to light Neck: No JVD, neck is supple trachea is midline Respiratory system: wheezing bilaterally. Gastrointestinal: Abdomen is soft, non distended, non tender, bowel sounds are present CVS: Regular rate and rhythm. No murmurs, rubs or gallops Musculoskeletal: No joint or muscle tenderness Extremities: Non tender, no edema, peripheral pulses are present Neuro: Oriented, no tremors, no focal neurological deficits Skin: No rashes Results & Data ([facility]) Vital Signs (Past 12 Hours) Vital Signs Temp Pulse Pulse Resp BP Pulse Ox 01/14/20 12:29 36.8 C 57 L 20 138/61 99 01/14/20 11:25 58 L 16 94 01/14/20 09:44 36.6 C 68 127/58 L 93 01/14/20 07:43 70 01/14/20 06:53 70 16 98 01/14/20 03:23 36.7 C 67 19 116/67 95 01/14/20 03:12 74 20 95 Laboratory Results 01/14/20 07:53 01/14/20 01/14/20 07:53 07:53 WBC 5.52 RBC 2.48 L MCV 91.9 MCH 30.2 MCHC 32.9 RDW Std Deviation 44.9 RDW Coeff of Danny 13.3 Plt Count 197 MPV 10.2 Albumin 3.0 L (1) CHF (congestive heart failure) Heart failure chronicity: acute Heart failure type: unspecified Qualified Code(s): I50.9 - Heart failure, unspecified
[2020-01-14] MEDS: LEVALBUTEROL HCL 1.25 MG/3 ML NEB NEB SCH ×3 (15:16→22:50)
--- NOTE | 2020-01-14 16:30 | Electrocardiogram Report ---
Test Reason : Blood Pressure : / mmHG Vent. Rate : 071 BPM Atrial Rate : 071 BPM P-R Int : 162 ms QRS Dur : 148 ms QT Int : 496 ms P-R-T Axes : 050 -68 050 degrees QTc Int : 538 ms Normal sinus rhythm Right bundle branch block Left anterior fascicular block Bifascicular block Left ventricular hypertrophy with repolarization abnormality ( R in aVL , Romhilt-Carranza ) Cannot rule out Septal infarct (cited on or before 16-DEC-2019) Abnormal ECG When compared with ECG of 13-JAN-2020 06:51, No significant change was found Confirmed by Kevin Simon ([id number]) on 01/14/2020 4:30:35 PM Referred By: REFERRED SELF Confirmed By:Kevin Simon
[2020-01-14] MEDS ORDERED: Nursing to Pharmacy Communication ONE (17:04)
[2020-01-14] MEDS: CITALOPRAM 40 MG TAB PO SCH (20:06)
[2020-01-14] MEDS: FINASTERIDE 5 MG TAB PO SCH (20:06)
[2020-01-14] MEDS: TAMSULOSIN HCL 0.4 MG CAP PO SCH (20:06)
[2020-01-14] MEDS: AMLODIPINE BESYLATE 5 MG TAB PO SCH (20:06)
[2020-01-14] MEDS: ATORVASTATIN 40 MG TAB PO SCH (20:06)
--- NOTE | 2020-01-14 20:53 | Hospitalist Progress Note ---
Date of Service January 14, 2020 Assessment & Plan (1) Acute respiratory failure with hypoxia: (2) CHF (congestive heart failure): Presented with volume overload hypoxia respiratory distress bilateral pulmonary congestion secondary to worsening of renal failure leading to fluid retention Due to combination of volume overload/secondary to renal failure, leading to decompensated CHF with diastolic dysfunction CXR showed cardiomegaly with worsening volume overload and congestive change. ProBNP above 4000's Recent echocardiogram shows diastolic CHF with normal ejection fraction/HFp EF Cardiology on board Fluid management as per Nephro Continue IV Lasix drip Continue oxygen supplement Continue monitor closely COPD exacerbation, Possibly due to volume overload On 4 L oxygen SPO2 98% Initially required BiPAP treatment, Off BiPAP now on 4 L oxygen via nasal cannula Reeceived Solu-Medrol 125 mg x 1, then starting on solumedrol 40mg q8H Counseling on smoking cessation Continue oxygen supplement Pulmonology evaluation if no improvement of respiratory status Leukocytosis Possible related to volume overload WBC on admission 13K Afebrile, Lactic acid 1.1, procalcitonin 0.24 IV Zosyn was discontinued Resolved (3) CKD (chronic kidney disease) stage 5, GFR less than 15 ml/min: Baseline creatinine 3.9-4.0 Acute worsening of chronic kidney disease now stage V, BUN/creatinine 74 and 4.99 Nephrology on board Cannulation to fistula was not successful yesterday Ultrasound of fistula showsed Patent arteriovenous fistula of the left upper extremity. Case discussed with Dr. Duncan today recommnended to use the fistula since uls showed patent then if malfunction, then will get fistulogram Will talk to nephrology to use the fistula tomorrow for HD Abdominal pain CT abd/pelvis showed a distal/terminal small bowel is decompressed. The upstream small bowel loops are distended and fluid-filled. KUB showed nonspecific bowel gas pattern with gaseous prominence of both large and small bowel loops Surgery on board recommended to start on clear liquid diet continue monitor (4) Diabetes mellitus, type 2: Last A1c 5.7 on 12/15/2019 DM control On Tradjenta as outpatient Hold Tradjenta during hospital stay Continue NovoLog sliding scale per protocol (5) Hypertension: BP stable Continue Coreg 25 mg twice daily and hydralazine 75 mgx 3 times daily PRN IV hydralazine ordered Continue monitor BP (6) PAD (peripheral artery disease): S/P stent to LLE in [place] by Dr. 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 No evidence of GI bleed Baseline hemoglobin between 8 and 9 Hgb 7.5 today (8) BPH (benign prostatic hyperplasia): On Flomax and finasteride as outpatient (9) Tobacco abuse: Continues to smoke half a half a pack of cigarette Strongly encouraged smoking cessation Consider nicotine patch if needed (10) DVT prophylaxis: SQ Heparin CODE STATUS: Full code Discussed with patient Disposition: Patient lives at home was independent in ADLs Presents with acute illness PT OT evaluation will be requested prior to discharge Patient will need arrangement for outpatient chronic dialysis Social service consulted for discharge planning to Admission and Anticipated Discharge Date Admission Date: January 12, 2020 Subjective Pt was seen and examined Lying in bed with no distress Pt said that he feels fine Denies any chest pain, dizziness and SOB Physical Exam Physical Exam: General- No acute distress Head- atraumatic Eyes- PERRL, EOMI, ENT- oropharynx clear Neck- supple, no JVD Lungs- Diminished BS Heart- regular rhythm; no murmur Abdomen- normal bowel sounds, soft, nontender Extremities- no calf tenderness Neuro- alert, oriented x 3; PERRL, EOMI; no facial palsy; no dysarthria Skin- warm & dry Results & Data ([facility]) Vital Signs (Past 12 Hours) Vital Signs Temp Pulse Pulse Resp BP Pulse Ox Pulse Ox 01/14/20 19:28 36.3 C L 57 L 17 124/63 100 01/14/20 19:24 55 L 18 97 01/14/20 17:23 59 L 01/14/20 15:16 78 20 93 01/14/20 15:12 36.5 C 61 20 124/63 94 01/14/20 15:07 95 01/14/20 15:02 36.5 C 59 L 119/64 95 01/14/20 12:29 36.8 C 57 L 20 138/61 99 01/14/20 11:25 58 L 16 94 01/14/20 09:44 36.6 C 68 127/58 L 93
[2020-01-15] MEDS: methylPREDNISolone 40 MG in SYRINGE 0 ML IV SCH ×3 (00:15→17:02)
[2020-01-15] MEDS: HEPARIN SOD 5,000 UNIT/0.5 ML VIAL SQ SCH ×4 (00:15→21:42)
[2020-01-15] MEDS: NITROGLYCERIN 2% OINTMENT 30GM TUBE EXT SCH ×4 (00:57→17:06)
[2020-01-15] MEDS: LEVALBUTEROL HCL 1.25 MG/3 ML NEB NEB SCH ×6 (02:24→23:02)
[2020-01-15] MEDS: FUROSEMIDE 100 MG in DEXTROSE 5% 90 ML IV SCH ×2 (04:24→10:21)
[2020-01-15 06:24] LABS: Hematocrit (blood only) 26.4 % (42-52); Hemoglobin 8.8 g/dL (14.0-18.0); Immature Granulocytes # (auto) 0.04 K/uL (0.00-0.02); Immature Granulocytes % (auto) 0.3 %; Lymphocytes % (auto) 4.7 %; Mean Corpuscular Hemoglobin 30.1 pg (25-34); Mean Corpuscular Hgb Conc 33.3 g/dL (32-36); Mean Corpuscular Volume 90.4 fL (80-100); Mean Platelet Volume 10.5 fL (7.4-10.4); Monocytes # (auto) 0.96 K/uL (0.11-0.59); Monocytes % (auto) 7.5 %; Neutrophils # (auto) 11.21 K/uL (1.4-6.5); Neutrophils % (auto) 87.5 %; Platelet Count 231 K/uL (130-400); RDW Coefficient of Variation 13.2 % (11.5-14.5); RDW Standard Deviation 43.8 fL (36.4-46.3); Red Blood Count 2.92 M/uL (4.7-6.1); White Blood Count 12.81 K/uL (4.8-10.8)
[2020-01-15 07:15] LABS: Albumin Globulin Ratio 0.8 (0.9-2); Albumin Level 3.1 gm/dl (3.4-5.0); BUN Creatinine Ratio 18.9 (10-20); Bilirubin,Total 0.6 mg/dl (0.2-1); Calcium 8.2 mg/dl (8.5-10.1); Creatinine Clr Calc Pharmacy 10.7 ml/min; Est GFR (African American) 9.9; Est GFR (Non-African American) 8.6; Globulin 3.7 gm/dl (2.5-4.0); Magnesium 2.2 mg/dl (1.8-2.4); Potassium 3.6 mmol/L (3.5-5.1); Total Protein 6.8 gm/dl (6.4-8.2)
--- NOTE | 2020-01-15 07:31 | Surgery Progress Note ---
Date of Service January 15, 2020 Assessment & Plan (1) Epigastric abdominal pain: resolving ileus/SBO can have full liquids this AM, advance as radha pt seen. as above. no pain. radha diet. +flatus. ok to slowly advance diet. Subjective no pain or nausea, increasing flatus. no BM Physical Exam Gastrointestinal (Abdomen): Inspection/Auscultation: abdomen not distended Percussion/Palpation: abdomen soft; abdomen nontender Results & Data Vital Signs (Past 12 Hours) Vital Signs Temp Pulse Pulse Resp BP Pulse Ox 01/15/20 07:13 95 H 16 96 01/15/20 05:46 36.3 C L 63 19 132/68 94 01/15/20 02:24 57 L 16 95 01/14/20 23:00 53 L 01/14/20 22:50 54 L 16 94 01/14/20 22:36 36.3 C L 55 L 17 116/63 96 PG Care Time/CCT Total # of Minutes Spent Total Time Spent with Patient: Total time spent is greater than 50% in coordination of care (as documented) at patient's floor/unit and/or counseling patient: Coding Level of Care Code 06711 Subseq Hosp Care Lvl 1 Diagnoses Epigastric abdominal pain R10.13
[2020-01-15] MEDS: FLUTICASONE/VILANTEROL 200/25MCG 14 PUFFS/INHALER INH SCH (08:08)
[2020-01-15] MEDS: carvediloL 12.5 MG TAB PO SCH ×2 (08:08→17:02)
[2020-01-15] MEDS: UMECLIDINIUM BROMIDE 62.5MCG/BLISTER 7 PUFFS/INHALER INH SCH (08:08)
[2020-01-15] MEDS: ASPIRIN 81 MG ECTAB PO SCH (08:08)
[2020-01-15] MEDS: INSULIN GLARGINE SOLOSTAR 100 UNITS/ML 3 ML PEN SC SCH ×2 (08:09→21:44)
[2020-01-15] MEDS: TRIAMCINOLONE ACET 0.1% CR 15 GM TUBE TOP SCH ×2 (08:09→21:44)
[2020-01-15] MEDS: INSULIN ASPART 100 UNITS/ML 3 ML PEN SC SCH ×4 (08:12→21:43)
[2020-01-15] MEDS: CHOLECALCIFEROL 1,000 UNITS 25 MCG TAB PO SCH (08:13)
[2020-01-15] MEDS: PANTOprazole 40 MG TAB PO SCH ×2 (08:13→21:42)
[2020-01-15] MEDS: TORSEMIDE 100 MG TAB PO SCH (14:01)
--- NOTE | 2020-01-15 17:04 | Nephrology Progress Note ---
Date of Service January 15, 2020 Assessment & Plan (1) CKD (chronic kidney disease) stage 5, GFR less than 15 ml/min: Patient with CKD 5 not on HD but now with progressively worsening renal function and recurrent volume overload. He is still making urine but given hyperkalemia, acidosis and volume overload, will start him on HD. He has consented to dialysis. I explained risks and benefits of HD. Cannulation of AVF failed. He will need fistulogram before successful use of AVF. Will hold off HD for now and diurese him aggressively. Patient is improving by diuresis. he might be able to go home and start dialysis as an out patient (2) Acute respiratory failure with hypoxia: Due to pulmonary edema. He was net -1.3 L yesterday. He is wheezing and most likely has COPD exacerbation as well. Continue management for COPD and diuretics. (3) CHF (congestive heart failure): Stop Lasix drip. Remove vital catheter. Start torsemide 100mg daily. Monitor input/output. Daily weight and renal diet (4) Hypertension: BP is controlled. Continue amlodipine and hydralazine. coreg to 25mg bid Admission and Anticipated Discharge Date Admission Date: January 12, 2020 Subjective Feels better today. Breathing is better. Was net negative 1.3 litres. Review of Systems Review of Systems: All systems reviewed & are unremarkable except as noted in HPI & below Physical Exam Physical Exam: General exam: Appears comfortable, no acute distress HEENT: Pupils are equal and reactive to light Neck: No JVD, neck is supple trachea is midline Respiratory system: Clear breath sounds bilaterally. Gastrointestinal: Abdomen is soft, non distended, non tender, bowel sounds are present CVS: Regular rate and rhythm. No murmurs, rubs or gallops Musculoskeletal: No joint or muscle tenderness Extremities: Non tender, no edema, peripheral pulses are present Neuro: Oriented, no tremors, no focal neurological deficits Skin: No rashes Results & Data ([facility]) Vital Signs (Past 12 Hours) Vital Signs Temp Pulse Pulse Resp BP Pulse Ox Pulse Ox 01/15/20 16:00 53 L 01/15/20 15:55 36.4 C L 55 L 18 127/67 97 01/15/20 15:33 18 97 01/15/20 15:00 96 01/15/20 11:34 53 L 18 98 01/15/20 11:00 36.7 C 54 L 16 113/62 97 01/15/20 08:00 53 L 01/15/20 07:30 36.5 C 62 20 136/63 98 01/15/20 07:13 95 H 16 96 01/15/20 05:46 36.3 C L 63 19 132/68 94 Diagnostic Findings 01/15/20 05:54 01/15/20 01/15/20 05:54 05:54 WBC 12.81 H RBC 2.92 L MCV 90.4 MCH 30.1 MCHC 33.3 RDW Std Deviation 43.8 RDW Coeff of Danny 13.2 Plt Count 231 MPV 10.5 H Albumin 3.1 L (1) CHF (congestive heart failure) Heart failure chronicity: acute Heart failure type: unspecified Qualified C ode(s): I50.9 - Heart failure, unspecified
--- NOTE | 2020-01-15 18:23 | Hospitalist Progress Note ---
Date of Service January 15, 2020 Assessment & Plan (1) Acute respiratory failure with hypoxia: (2) CHF (congestive heart failure): Presented with volume overload hypoxia respiratory distress bilateral pulmonary congestion secondary to worsening of renal failure leading to fluid retention Due to combination of volume overload/secondary to renal failure, leading to decompensated CHF with diastolic dysfunction CXR showed cardiomegaly with worsening volume overload and congestive change. ProBNP above 4000's Recent echocardiogram shows diastolic CHF with normal ejection fraction/HFp EF Cardiology on board Fluid management as per Nephro Case discussed with nephro recommended to d/c the lasix drip and started on Torsemide 100mg daily Continue oxygen supplement Continue monitor closely COPD exacerbation, Possibly due to volume overload On 4 L oxygen SPO2 98% Initially required BiPAP treatment, Off BiPAP now on 4 L oxygen via nasal cannula Reeceived Solu-Medrol 125 mg x 1, then starting on Will transition to prednisone 40mg PO Continue oxygen supplement Pulmonology evaluation if no improvement of respiratory status Leukocytosis Possible related to volume overload WBC on admission 13K Afebrile, Lactic acid 1.1, procalcitonin 0.24 IV Zosyn was discontinued Resolved (3) CKD (chronic kidney disease) stage 5, GFR less than 15 ml/min: Baseline creatinine 3.9-4.0 Acute worsening of chronic kidney disease now stage V, BUN/creatinine 74 and 4.99 Nephrology on board Cannulation to fistula was not successful yesterday Ultrasound of fistula showsed Patent arteriovenous fistula of the left upper extremity. Case discussed with Dr. Duncan today recommnended to use the fistula since uls showed patent then if malfunction, then will get fistulogram Case discussed with Nephrology and plan for HD outpatient since pt improves medically Abdominal pain CT abd/pelvis showed a distal/terminal small bowel is decompressed. The upstream small bowel loops are distended and fluid-filled. KUB showed nonspecific bowel gas pattern with gaseous prominence of both large and small bowel loops Surgery on board recommended to advance diet to full liquid continue monitor (4) Diabetes mellitus, type 2: Last A1c 5.7 on 12/15/2019 DM control On Tradjenta as outpatient Hold Tradjenta during hospital stay Continue NovoLog sliding scale per protocol (5) Hypertension: BP stable Continue Coreg 25 mg twice daily and hydralazine 75 mgx 3 times daily PRN IV hydralazine ordered Continue monitor BP (6) PAD (peripheral artery disease): S/P stent to LLE in [place] by Dr. 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 No evidence of GI bleed Baseline hemoglobin between 8 and 9 Hgb 8.8 today (8) BPH (benign prostatic hyperplasia): On Flomax and finasteride as outpatient (9) Tobacco abuse: Continues to smoke half a half a pack of cigarette Strongly encouraged smoking cessation Consider nicotine patch if needed (10) DVT prophylaxis: SQ Heparin CODE STATUS: Full code Discussed with patient Disposition: Patient lives at home was independent in ADLs Presents with acute illness PT OT evaluation will be requested prior to discharge Patient will need arrangement for outpatient chronic dialysis Social service consulted for discharge planning to Admission and Anticipated Discharge Date Admission Date: January 12, 2020 Subjective Pt was seen and examined Sitting in chair with no distress Pt said that he feels fine He tolerated his parkinson liquid diet Update provided to the daughter Denies any chest pain, palpitation and SOB Physical Exam Physical Exam: General- No acute distress Head- atraumatic Eyes- PERRL, EOMI, ENT- oropharynx clear Neck- supple, no JVD Lungs- Diminished BS Heart- regular rhythm; no murmur Abdomen- normal bowel sounds, soft, nontender Extremities- no calf tenderness Neuro- alert, oriented x 3; PERRL, EOMI; no facial palsy; no dysarthria Skin- warm & dry Results & Data ([facility]) Vital Signs (Past 12 Hours) Vital Signs Temp Pulse Pulse Resp BP Pulse Ox Pulse Ox 01/15/20 16:00 53 L 01/15/20 15:55 36.4 C L 55 L 18 127/67 97 01/15/20 15:33 18 97 01/15/20 15:00 96 01/15/20 11:34 53 L 18 98 01/15/20 11:00 36.7 C 54 L 16 113/62 97 01/15/20 08:00 53 L 01/15/20 07:30 36.5 C 62 20 136/63 98 01/15/20 07:13 95 H 16 96
[2020-01-15] MEDS: TAMSULOSIN HCL 0.4 MG CAP PO SCH (21:42)
[2020-01-15] MEDS: AMLODIPINE BESYLATE 5 MG TAB PO SCH (21:42)
[2020-01-15] MEDS: FINASTERIDE 5 MG TAB PO SCH (21:42)
[2020-01-15] MEDS: CITALOPRAM 40 MG TAB PO SCH (21:42)
[2020-01-15] MEDS: ATORVASTATIN 40 MG TAB PO SCH (21:44)
[2020-01-16] MEDS: NITROGLYCERIN 2% OINTMENT 30GM TUBE EXT SCH ×5 (01:26→22:14)
[2020-01-16] MEDS: methylPREDNISolone 40 MG in SYRINGE 0 ML IV SCH (01:43)
[2020-01-16] MEDS: LEVALBUTEROL HCL 1.25 MG/3 ML NEB NEB SCH ×6 (03:14→23:06)
[2020-01-16] MEDS: HEPARIN SOD 5,000 UNIT/0.5 ML VIAL SQ SCH ×3 (05:50→21:14)
[2020-01-16 07:55] LABS: BUN Creatinine Ratio 19.8 (10-20); Calcium 8.1 mg/dl (8.5-10.1); Creatinine Clr Calc Pharmacy 9.7 ml/min; Est GFR (African American) 9.1; Est GFR (Non-African American) 7.8; Potassium 3.3 mmol/L (3.5-5.1)
[2020-01-16] MEDS ORDERED: predniSONE 20 MG TAB PO SCH (09:00)
[2020-01-16] MEDS: ASPIRIN 81 MG ECTAB PO SCH (09:09)
[2020-01-16] MEDS: TRIAMCINOLONE ACET 0.1% CR 15 GM TUBE TOP SCH ×2 (09:09→21:24)
[2020-01-16] MEDS: TORSEMIDE 100 MG TAB PO SCH (09:09)
[2020-01-16] MEDS: PANTOprazole 40 MG TAB PO SCH ×2 (09:09→21:25)
[2020-01-16] MEDS: CHOLECALCIFEROL 1,000 UNITS 25 MCG TAB PO SCH (09:09)
[2020-01-16] MEDS: UMECLIDINIUM BROMIDE 62.5MCG/BLISTER 7 PUFFS/INHALER INH SCH (09:10)
[2020-01-16] MEDS: FLUTICASONE/VILANTEROL 200/25MCG 14 PUFFS/INHALER INH SCH (09:10)
[2020-01-16] MEDS: carvediloL 12.5 MG TAB PO SCH ×2 (09:10→17:53)
[2020-01-16] MEDS: INSULIN GLARGINE SOLOSTAR 100 UNITS/ML 3 ML PEN SC SCH ×2 (09:11→21:12)
[2020-01-16] MEDS: INSULIN ASPART 100 UNITS/ML 3 ML PEN SC SCH ×4 (09:13→21:13)
--- NOTE | 2020-01-16 11:28 | Surgery Progress Note ---
Date of Service January 16, 2020 Assessment & Plan (1) SBO (small bowel obstruction): will recheck KUB today still no indication for urgent surgery I think ok to remain on liquids pending kub results [facility] covering weekend. Subjective pt seen. feeling well now but had an episode of emesis earlier this am. No pain. no nausea now. very small bm earlier but admittedly not much. had been tolerating liquids yesterday. Physical Exam Physical Exam: alert. nad abd: soft. nt. very mild distension Results & Data Vital Signs (Past 12 Hours) Vital Signs Temp Pulse Resp BP Pulse Ox 01/16/20 07:30 36.9 C 67 18 157/68 H 95 01/16/20 07:19 70 18 94 01/16/20 04:49 36.6 C 68 20 128/57 L 95 01/16/20 03:14 67 16 96 01/15/20 23:48 36.6 C 56 L 18 113/61 95 PG Care Time/CCT Total # of Minutes Spent Total Time Spent with Patient: Total time spent is greater than 50% in coordination of care (as documented) at patient's floor/unit and/or counseling patient: Coding Level of Care Code 76822 Subseq Hosp Care Lvl 3 Diagnoses SBO (small bowel obstruction) K56.609
--- NOTE | 2020-01-16 11:32 | XRay Report ---
KUB CLINICAL HISTORY: Generalized abdominal pain. FINDINGS: 2 AP, portable, supine abdominal radiographs are compared to study dated 01/14/2020 and erica elated with abdominal CT dated 01/13/2020. Cholecystectomy clips are noted in the right upper quadrant and there are surgical clips in the right mid abdomen. There is no radiographic evidence of high-gra de bowel obstruction. Mildly distended and gas-filled loops of small bowel persist. There is also mil d gaseous distention of the colon. No evidence of intra-articular free air is seen on these supine im ages. There are no abnormal abdominal calcifications. Vascular calcifications and phleboliths are see n in the pelvis. The skeletal structures are osteopenic and appear intact. Lumbosacral spondylosis is noted. IMPRESSION: 1. There is no radiographic evidence of high-grade bowel obstruction. 2. Nonspecific bowel gas pattern is unchanged from 01/14/2020 with mildly distended and gas-filled loo ps of small bowel and colon. Electronically signed by: Ivan Joseph M.D. 01/16/2020 11:31 AM
[2020-01-16] MEDS ORDERED: POTASSIUM CHLORIDE 20 MEQ TABCR PO ONE (12:30)
--- NOTE | 2020-01-16 16:54 | Nephrology Progress Note ---
Date of Service January 16, 2020 Assessment & Plan (1) CKD (chronic kidney disease) stage 5, GFR less than 15 ml/min: Patient with CKD 5 not on HD but now with progressively worsening renal function and recurrent volume overload. He is still making urine but given hyperkalemia, acidosis and volume overload, will start him on HD. He has consented to dialysis. I explained risks and benefits of HD. Cannulation of AVF failed. He might need fistulogram before successful use of AVF. Will hold off HD for now and diurese him aggressively. Patient is improving by diuresis. he might be able to go home and start dialysis as an out patient. -Will attempt cannulation again tomorrow and if successful HD for 2.5hrs (2) Acute respiratory failure with hypoxia: Due to pulmonary edema. He was even yesterday. He is wheezing and most likely has COPD exacerbation as well. Continue management for COPD and diuretics. (3) CHF (congestive heart failure): Continue torsemide 100mg daily. Monitor input/output. Daily weight and renal diet (4) Hypertension: BP is acceptable. Continue amlodipine and hydralazine. coreg to 25mg bid Admission and Anticipated Discharge Date Admission Date: January 12, 2020 Subjective Patient feels better. he is on room air now. He was ambulating in the corridors. Cr up trending. Review of Systems Review of Systems: All systems reviewed & are unremarkable except as noted in HPI & below Physical Exam Physical Exam: General exam: Appears comfortable, no acute distress HEENT: Pupils are equal and reactive to light Neck: No JVD, neck is supple trachea is midline Respiratory system: wheezing bilaterally. Gastrointestinal: Abdomen is soft, non distended, non tender, bowel sounds are present CVS: Regular rate and rhythm. No murmurs, rubs or gallops Musculoskeletal: No joint or muscle tenderness Extremities: Non tender, no edema, peripheral pulses are present Neuro: Oriented, no tremors, no focal neurological deficits Skin: No rashes Results & Data ([facility]) Vital Signs (Past 12 Hours) Vital Signs Temp Pulse Pulse Resp BP Pulse Ox 01/16/20 15:33 36.8 C 75 19 164/82 H 01/16/20 15:29 74 16 95 01/16/20 11:30 36.5 C 74 16 169/77 H 94 01/16/20 08:00 74 01/16/20 07:30 36.9 C 67 18 157/68 H 95 01/16/20 07:19 70 18 94 Laboratory Results 01/16/20 06:28 (1) CHF (congestive heart failure) Heart failure chronicity: acute Heart failure type: unspecified Qualified Code(s): I50.9 - Heart failure, unspecified
--- NOTE | 2020-01-16 18:35 | XRay Report ---
XR chest 1V portable CLINICAL HISTORY: cough COMPARISON STUDY: 01/13/2020 FINDINGS: The heart is enlarged. There are bilateral airspace opacities. The findings could represent pulmonary edema or a multifocal pneumonia. Clinical and radiographic follow-up is recommended. Air b eneath the right hemidiaphragm, likely represents colonic interposition. If there is clinical concern for the presence of free intraperitoneal air, decubitus views the abdomen would be recommended in fo llow-up. IMPRESSION: 1. Progressive bilateral pulmonary airspace opacities. The findings could represent either pulmonary edema or multifocal pneumonia. Clinical and radiographic follow-up is recommended. 2. Air beneath the right hemidiaphragm, statistically representing colonic interposition. ACT 112: Negative or not required by law. Electronically signed by: Darrel Fu M.D. 01/16/2020 6:33 PM
--- NOTE | 2020-01-16 19:25 | Hospitalist Progress Note ---
Date of Service January 16, 2020 Assessment & Plan (1) Acute respiratory failure with hypoxia: (2) CHF (congestive heart failure): Presented with volume overload hypoxia respiratory distress bilateral pulmonary congestion secondary to worsening of renal failure leading to fluid retention Due to combination of volume overload/secondary to renal failure, leading to decompensated CHF with diastolic dysfunction CXR showed cardiomegaly with worsening volume overload and congestive change. ProBNP above 4000's Recent echocardiogram shows diastolic CHF with normal ejection fraction/HFp EF Cardiology on board Fluid management as per Nephro Case discussed with nephro recommended to d/c the lasix drip and started on Torsemide 100mg daily Continue oxygen supplement Continue monitor closely Possible Pneumonia CXR showed Progressive bilateral pulmonary airspace opacities. Will start on Cefdinir 300 daily continue monitor COPD exacerbation, Possibly due to volume overload On 4 L oxygen SPO2 98% Initially required BiPAP treatment, Off BiPAP now on 4 L oxygen via nasal cannula Reeceived Solu-Medrol 125 mg x 1, then starting on was started on Prednisone Became confuse today, will hold prednisone Continue oxygen supplement Pulmonology evaluation if no improvement of respiratory status Leukocytosis Possible related to volume overload WBC on admission 13K Afebrile, Lactic acid 1.1, procalcitonin 0.24 IV Zosyn was discontinued Resolved (3) CKD (chronic kidney disease) stage 5, GFR less than 15 ml/min: Baseline creatinine 3.9-4.0 Acute worsening of chronic kidney disease now stage V, BUN/creatinine 74 and 4.99 Nephrology on board Cannulation to fistula was not successful yesterday Ultrasound of fistula showsed Patent arteriovenous fistula of the left upper extremity. Case discussed with Dr. Duncan today recommnended to use the fistula since uls showed patent then if malfunction, then will get fistulogram Case discussed with Nephrology and plan for HD outpatient since pt improves medically Abdominal pain CT abd/pelvis showed a distal/terminal small bowel is decompressed. The upstream small bowel loops are distended and fluid-filled. KUB showed nonspecific bowel gas pattern with gaseous prominence of both large and small bowel loops Surgery on board recommended to advance diet to full liquid continue monitor (4) Diabetes mellitus, type 2: Last A1c 5.7 on 12/15/2019 DM control On Tradjenta as outpatient Hold Tradjenta during hospital stay Continue NovoLog sliding scale per protocol (5) Hypertension: BP stable Continue Coreg 25 mg twice daily and hydralazine 75 mgx 3 times daily PRN IV hydralazine ordered Continue monitor BP (6) PAD (peripheral artery disease): S/P stent to LLE in [place] by Dr. 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 No evidence of GI bleed Baseline hemoglobin between 8 and 9 Hgb 8.8 today (8) BPH (benign prostatic hyperplasia): On Flomax and finasteride as outpatient (9) Tobacco abuse: Continues to smoke half a half a pack of cigarette Strongly encouraged smoking cessation Consider nicotine patch if needed (10) DVT prophylaxis: SQ Heparin CODE STATUS: Full code Discussed with patient Disposition: Patient lives at home was independent in ADLs Presents with acute illness PT OT evaluation will be requested prior to discharge Patient will need arrangement for outpatient chronic dialysis Social service consulted for discharge planning to Admission and Anticipated Discharge Date Admission Date: January 12, 2020 Subjective Pt was seen and examined Lying in bed with no distress with daughter and at bedside Pt is confused today and vomiting this morning He denies any abdominal pain Denies any chest pain, palpitation, dizziness and SOB Physical Exam Physical Exam: General- Confused Head- atraumatic Eyes- PERRL, EOMI, ENT- oropharynx clear Neck- supple, no JVD Lungs- Diminished BS Heart- regular rhythm; no murmur Abdomen- normal bowel sounds, soft, nontender Extremities- no calf tenderness Neuro- alert, oriented, no facial palsy; no dysarthria Skin- warm & dry Results & Data ([facility]) Vital Signs (Past 12 Hours) Vital Signs Temp Pulse Pulse Resp BP Pulse Ox 01/16/20 18:55 36.5 C 75 20 164/80 H 95 01/16/20 15:33 36.8 C 75 19 164/82 H 01/16/20 15:29 74 16 95 01/16/20 11:30 36.5 C 74 16 169/77 H 94 01/16/20 08:00 74 01/16/20 07:30 36.9 C 67 18 157/68 H 95
[2020-01-16] MEDS: CEFDINIR 300 MG CAP PO SCH (21:10)
[2020-01-16] MEDS: AMLODIPINE BESYLATE 5 MG TAB PO SCH (21:24)
[2020-01-16] MEDS: CITALOPRAM 40 MG TAB PO SCH (21:24)
[2020-01-16] MEDS: TAMSULOSIN HCL 0.4 MG CAP PO SCH (21:24)
[2020-01-16] MEDS: ATORVASTATIN 40 MG TAB PO SCH (21:24)
[2020-01-16] MEDS: FINASTERIDE 5 MG TAB PO SCH (21:25)
[2020-01-17] MEDS ORDERED: OLANZapine 10 MG/2.1 ML SDV IM PRN (01:02)
[2020-01-17] MEDS: LEVALBUTEROL HCL 1.25 MG/3 ML NEB NEB SCH ×6 (03:20→22:16)
[2020-01-17] MEDS: HEPARIN SOD 5,000 UNIT/0.5 ML VIAL SQ SCH ×3 (05:38→22:08)
[2020-01-17] MEDS: NITROGLYCERIN 2% OINTMENT 30GM TUBE EXT SCH ×3 (05:38→19:38)
[2020-01-17 06:02] LABS: Hematocrit (blood only) 27.3 % (42-52); Hemoglobin 9.2 g/dL (14.0-18.0); Mean Corpuscular Hgb Conc 33.7 g/dL (32-36); Mean Corpuscular Volume 88.9 fL (80-100); Mean Platelet Volume 10.3 fL (7.4-10.4); Platelet Count 204 K/uL (130-400); RDW Coefficient of Variation 13.2 % (11.5-14.5); RDW Standard Deviation 43.1 fL (36.4-46.3); Red Blood Count 3.07 M/uL (4.7-6.1)
[2020-01-17 06:41] LABS: BUN Creatinine Ratio 20.3 (10-20); Calcium 8.3 mg/dl (8.5-10.1); Creatinine Clr Calc Pharmacy 9.2 ml/min; Est GFR (African American) 8.7; Est GFR (Non-African American) 7.5; Potassium 3.7 mmol/L (3.5-5.1)
[2020-01-17] MEDS ORDERED: SODIUM CHLORIDE 0.9% 1000ML 1,000 ML IV PRN (07:00)
[2020-01-17] MEDS: INSULIN ASPART 100 UNITS/ML 3 ML PEN SC SCH ×4 (09:17→22:08)
[2020-01-17] MEDS: INSULIN GLARGINE SOLOSTAR 100 UNITS/ML 3 ML PEN SC SCH ×2 (09:17→22:08)
[2020-01-17] MEDS: PANTOprazole 40 MG TAB PO SCH ×2 (10:59→22:17)
[2020-01-17] MEDS: carvediloL 12.5 MG TAB PO SCH ×2 (10:59→17:40)
[2020-01-17] MEDS: CHOLECALCIFEROL 1,000 UNITS 25 MCG TAB PO SCH (10:59)
[2020-01-17] MEDS: TORSEMIDE 100 MG TAB PO SCH (10:59)
[2020-01-17] MEDS: ASPIRIN 81 MG ECTAB PO SCH (10:59)
[2020-01-17] MEDS: UMECLIDINIUM BROMIDE 62.5MCG/BLISTER 7 PUFFS/INHALER INH SCH (11:00)
[2020-01-17] MEDS: FLUTICASONE/VILANTEROL 200/25MCG 14 PUFFS/INHALER INH SCH (11:00)
[2020-01-17] MEDS: TRIAMCINOLONE ACET 0.1% CR 15 GM TUBE TOP SCH ×2 (11:01→22:07)
--- NOTE | 2020-01-17 12:09 | Surgery Progress Note ---
Date of Service doing better, no abdominal pain, KUB ( 01/16/2020) no SBO, January 17, 2020 Assessment & Plan (1) SBO (small bowel obstruction): doing fine, KUB- NO SBO no surgical indication now, may try clear diet today, Supervising Physician Co-Signing Physician Notes Attending addendum: Patient seen and examined with Negra Otero PA-C in the ER room B3 Lab and images reviewed, plan of care discussed with patient, family members, and consulting specialists This is a 74-year-old male with past medical history of type 2 diabetes, stage V CKD has a AV fistula on left arm, not on dialysis yet Peripheral vascular disease status post stent, came to ER with complaint of severe shortness of breath started around 3 AM in the morning, patient woke up from sleep unable to breathe, gasping for air In the ER patient was found to be tachypneic, hypoxic Chest x-ray shows progression of pulmonary congestion with right lower lobe infiltrate Patient was recently discharged from hospital on 01/06/2020, was admitted for chest heaviness discomfort, had a nuclear cardiac stress test which showed negative for stress-induced ischemia, resting echo EF was 60 to 65% no wall motion abnormality Patient reports Since discharge home he continued to feel shortness of breath on activity, which progressively got worse in the last 1 week and significant orthopnea experienced last night Physical exam: General: Elderly male, ill-appearing, noted to be in distress for shortness of breath Neck, no JVD appreciated Lungs: Coarse Rales bibasilar, with scattered wheeze Heart, regular S1-S2, no lower extremity edema noted, no JVD Abdomen: Soft nontender normal bowel sound Neuro: No focal neurological deficit, alert awake oriented x3 Assessment and plan Shortness of breath, acute hypoxemic respiratory failure: Possible secondary to volume overload due to progression of acute on chronic kidney disease, Patient's recent echo a week back showed normal ejection fraction, Gout any acute cardiac event given normal nuclear stress test few days ago Ordered for IV Lasix: Discussed with nephrology Dr. Ferrer recommends to give Lasix 80 mg x 1 now Patient will be seen by nephrology Ordered for Gamble catheter for accurate measurement of intake and output Patient reports he still able to make urine Acute on Chronic CHF with diastolic dysfunction: HFp EF: Normal ejection fraction , with diastolic dysfunction noted in recent echo on 01/07/2020 Presents with volume overload possibly secondary to worsening of renal failure Continue diuresis as per nephrology Fluid restriction 1500 mm a day cardiology consulted Gamble to accurate measurement of intake and output Daily weight Monitor in PCU/telemetry Hyperkalemia: Possible secondary to worsening of kidney function, potassium 5.2 without any acute EKG change Ordered for Lasix, low potassium diet, Repeat BMP at 6 PM Nephrology consulted CKD stage IV/ v Presents with volume overload, creatinine worsening to 4.9 Nephrology consulted-Case discussed with Dr. Candelaria Diuresis with Lasix as outlined above CODE STATUS: Full code DVT prophylaxis subcu heparin Please refer to further documentation by Negra Otero PA-C for discussion of other chronic issues Rosa Whitehead MD Subjective Pt was seen and examined Lying in bed with no distress with daughter and at bedside Pt is confused today and vomiting this morning He denies any abdominal pain Denies any chest pain, palpitation, dizziness and SOB Physical Exam Constitutional: WD/WN, vitals as above Eyes: PERRL, conjunctivae normal, anicteric sclerae ENMT: external ear and nose normal, oropharynx normal Neck: trachea midline, no thyromegaly Respiratory: normal respiratory effort, lungs clear to auscultation Cardiovascular: RRR, no murmur, no edema Gastrointestinal (Abdomen): normal bowel sounds, soft, nontender, no hepatosplenomegaly soft, no Skin: no rashes, warm and dry Neurologic: awake Results & Data Vital Signs (Past 12 Hours) Vital Signs Temp Pulse Pulse Pulse Resp BP BP 01/17/20 11:40 74 125/70 01/17/20 11:20 79 124/71 01/17/20 11:00 81 136/77 01/17/20 10:49 93 H 20 01/17/20 10:40 79 125/65 01/17/20 10:20 84 113/63 01/17/20 10:00 76 116/60 01/17/20 09:40 80 118/62 01/17/20 09:28 36.7 C 72 01/17/20 07:07 37.3 C 87 18 162/77 H 01/17/20 07:00 82 20 01/17/20 03:33 36.7 C 82 19 149/64 H 01/17/20 03:20 86 16 Pulse Ox 01/17/20 11:40 01/17/20 11:20 01/17/20 11:00 01/17/20 10:49 92 01/17/20 10:40 01/17/20 10:20 01/17/20 10:00 01/17/20 09:40 01/17/20 09:28 01/17/20 07:07 91 01/17/20 07:00 89 L 01/17/20 03:33 96 01/17/20 03:20 90 Laboratory Results Abnormal lab results 01/17/20 01/17/20 Range/Units 05:45 05:45 RBC 3.07 L (4.7-6.1) M/uL Hgb 9.2 L (14.0-18.0) g/dL Hct 27.3 L (42-52) % Sodium 130 L (136-145) mmol/L Chloride 94 L (98-107) mmol/L Carbon Dioxide 20 L (21-32) mmol/L Anion Gap 16.0 H (3-11) BUN 132 H (7-18) mg/dl Creatinine 6.56 H* (0.6-1.4) mg/dl BUN/Creatinine Ratio 20.3 H (10-20) Calcium 8.3 L (8.5-10.1) mg/dl
--- NOTE | 2020-01-17 18:53 | Hospitalist Progress Note ---
Date of Service January 17, 2020 Assessment & Plan (1) Acute respiratory failure with hypoxia: (2) CHF (congestive heart failure): Presented with volume overload hypoxia respiratory distress bilateral pulmonary congestion secondary to worsening of renal failure leading to fluid retention Due to combination of volume overload/secondary to renal failure, leading to decompensated CHF with diastolic dysfunction CXR showed cardiomegaly with worsening volume overload and congestive change. ProBNP above 4000's Recent echocardiogram shows diastolic CHF with normal ejection fraction/HFp EF Cardiology on board Fluid management as per Nephro Case discussed with nephro recommended to d/c the lasix drip and started on Torsemide 100mg daily Continue oxygen supplement Continue monitor closely Possible Pneumonia CXR showed Progressive bilateral pulmonary airspace opacities. Conrinue Cefdinir 300 daily continue monitor COPD exacerbation, Possibly due to volume overload On 4 L oxygen SPO2 98% Initially required BiPAP treatment, Off BiPAP now on 4 L oxygen via nasal cannula Reeceived Solu-Medrol 125 mg x 1, then starting on was started on Prednisone Became confuse today, will hold prednisone Continue oxygen supplement Pulmonology evaluation if no improvement of respiratory status Leukocytosis Possible related to volume overload WBC on admission 13K Afebrile, Lactic acid 1.1, procalcitonin 0.24 IV Zosyn was discontinued Resolved (3) CKD (chronic kidney disease) stage 5, GFR less than 15 ml/min: Baseline creatinine 3.9-4.0 Acute worsening of chronic kidney disease now stage V, BUN/creatinine 74 and 4.99 Nephrology on board Cannulation to fistula was not successful yesterday Ultrasound of fistula showsed Patent arteriovenous fistula of the left upper extremity. Case discussed with Dr. Duncan today recommnended to use the fistula since uls showed patent then if malfunction, then will get fistulogram Had HD done today and removed 1 L fluid today Case discussed with Nephrology that beyer to HD tomorrow again Abdominal pain CT abd/pelvis showed a distal/terminal small bowel is decompressed. The upstream small bowel loops are distended and fluid-filled. KUB showed nonspecific bowel gas pattern with gaseous prominence of both large and small bowel loops Surgery on board recommended to advance diet to full liquid continue monitor (4) Diabetes mellitus, type 2: Last A1c 5.7 on 12/15/2019 DM control On Tradjenta as outpatient Hold Tradjenta during hospital stay Continue NovoLog sliding scale per protocol (5) Hypertension: BP stable Continue Coreg 25 mg twice daily and hydralazine 75 mgx 3 times daily PRN IV hydralazine ordered Continue monitor BP (6) PAD (peripheral artery disease): S/P stent to LLE in [place] by Dr. 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 No evidence of GI bleed Baseline hemoglobin between 8 and 9 Hgb 8.8 today (8) BPH (benign prostatic hyperplasia): On Flomax and finasteride as outpatient (9) Tobacco abuse: Continues to smoke half a half a pack of cigarette Strongly encouraged smoking cessation Consider nicotine patch if needed (10) DVT prophylaxis: SQ Heparin CODE STATUS: Full code Discussed with patient Disposition: Patient lives at home was independent in ADLs Presents with acute illness PT OT evaluation will be requested prior to discharge Patient will need arrangement for outpatient chronic dialysis Social service consulted for discharge planning to Admission and Anticipated Discharge Date Admission Date: January 12, 2020 Subjective Pt was seen and examined Lying in bed with no distress sleeping getting HD Nurse said that pt was awake all night and finally feel a sleep around 5 am Pt has been sleeping for most part this morning Continue to be confused Physical Exam Physical Exam: General- Confused Head- atraumatic Eyes- PERRL, EOMI, ENT- oropharynx clear Neck- supple, no JVD Lungs- Diminished BS Heart- regular rhythm; no murmur Abdomen- normal bowel sounds, soft, nontender Extremities- no calf tenderness Neuro- alert, oriented, no facial palsy; no dysarthria Skin- warm & dry Results & Data ([facility]) Vital Signs (Past 12 Hours) Vital Signs Temp Pulse Pulse Pulse Resp BP BP 01/17/20 16:00 85 01/17/20 15:48 36.8 C 75 18 125/69 01/17/20 15:05 81 14 01/17/20 12:30 37.1 C 98 H 154/78 H 01/17/20 12:00 36.7 C 79 14 124/71 01/17/20 11:40 74 125/70 01/17/20 11:20 79 124/71 01/17/20 11:00 81 136/77 01/17/20 10:49 93 H 20 01/17/20 10:40 79 125/65 01/17/20 10:20 84 113/63 01/17/20 10:00 76 116/60 01/17/20 09:40 80 118/62 01/17/20 09:28 36.7 C 72 01/17/20 08:00 85 01/17/20 07:07 37.3 C 87 18 162/77 H 01/17/20 07:00 82 20 Pulse Ox 01/17/20 16:00 01/17/20 15:48 94 01/17/20 15:05 93 01/17/20 12:30 01/17/20 12:00 93 01/17/20 11:40 01/17/20 11:20 01/17/20 11:00 01/17/20 10:49 92 01/17/20 10:40 01/17/20 10:20 01/17/20 10:00 01/17/20 09:40 01/17/20 09:28 01/17/20 08:00 01/17/20 07:07 91 01/17/20 07:00 89 L
--- NOTE | 2020-01-17 19:12 | Dialysis Progress Note ---
Date of Service January 17, 2020 Assessment & Plan (1) CKD (chronic kidney disease) stage 5, GFR less than 15 ml/min: Patient with CKD 5 not on HD at admission but now with progressively worsening renal function and recurrent volume overload. He is still making urine but given hyperkalemia, acidosis and volume overload, he was started on hemodialysis. Day was his first treatment. Have been challenges cannulating his fistula, occluding failed cannulation attempts other days. Today after 3 sticks his fistula was cannulated; his confusion is an urgent indication for dialysis and I hope his mental status will improve with treatment. His vascular access remains tenuous; he might need fistulogram at an outside facility if vascular unable to do it here before successful use of AVF; ultrasound of access reassuring. -for now continue torsemide 100 mg daily given that dialysis may or may not be consistent Tolerated hemodialysis today for 2.5 hours: Plan another 2.5 to 3-hour treatment tomorrow if we can cannulate him (2) Acute respiratory failure with hypoxia: Due to pulmonary edema>> improving: Lying flat on room air today. He is wheezing and most likely has COPD exacerbation as well. Continue management for COPD and diuretics. (3) CHF (congestive heart failure): Continue torsemide 100mg daily. Monitor input/output. Daily weight and renal diet (4) Hypertension: BP is acceptable. Continue amlodipine and hydralazine, Coreg current doses well as torsemide Subjective Seen on dialysis late this morning at approximately 11:50 AM. Patient was tolerating treatment well and was nearly done. He had started the treatment by telling dialysis nurse that he was "Peter rabbit;" remains confused and with a sitter. Can get restless and aggressive. No pain. Review of Systems Review of Systems: Unobtainable due to cognitive status Physical Exam Constitutional: well developed, + thin and + behavioral limitations Lying flat on room air resting quietly Eyes: EOM intact bilaterally ENMT: Ears: no external ear abnormality Nose: no external nose abnormality Mouth: + dry oral mucous membranes Neck: no nuchal rigidity Respiratory: normal respiratory effort Auscultation: lungs clear to auscultation bilaterally and + diminished lung sounds Cardiovascular: RRR, no murmur, no edema Gastrointestinal (Abdomen): Inspection/Auscultation: normal bowel sounds Percussion/Palpation: abdomen soft; abdomen nontender Musculoskeletal: Extremities: strength 5/5 throughout Skin: no rashes, warm and dry Neurologic: albarran, resltess, no tremor Psychiatric: Orientation: oriented to person Results & Data Vital Signs (Past 12 Hours) Vital Signs Temp Pulse Pulse Pulse Resp BP BP 01/17/20 19:03 78 18 01/17/20 16:00 85 01/17/20 15:48 36.8 C 75 18 125/69 01/17/20 15:05 81 14 01/17/20 12:30 37.1 C 98 H 154/78 H 01/17/20 12:00 36.7 C 79 14 124/71 01/17/20 11:40 74 125/70 01/17/20 11:20 79 124/71 01/17/20 11:00 81 136/77 01/17/20 10:49 93 H 20 01/17/20 10:40 79 125/65 01/17/20 10:20 84 113/63 01/17/20 10:00 76 116/60 01/17/20 09:40 80 118/62 01/17/20 09:28 36.7 C 72 01/17/20 08:00 85 01/17/20 07:07 37.3 C 87 18 162/77 H Pulse Ox 01/17/20 19:03 94 01/17/20 16:00 01/17/20 15:48 94 01/17/20 15:05 93 01/17/20 12:30 01/17/20 12:00 93 01/17/20 11:40 01/17/20 11:20 01/17/20 11:00 01/17/20 10:49 92 01/17/20 10:40 01/17/20 10:20 01/17/20 10:00 01/17/20 09:40 01/17/20 09:28 01/17/20 08:00 01/17/20 07:07 91 (1) CHF (congestive heart failure) Heart failure chronicity: acute Heart failure type: unspecified Qualified Code(s): I50.9 - Heart failure, unspecified
[2020-01-17] MEDS: CITALOPRAM 40 MG TAB PO SCH (22:16)
[2020-01-17] MEDS: AMLODIPINE BESYLATE 5 MG TAB PO SCH (22:16)
[2020-01-17] MEDS: ATORVASTATIN 40 MG TAB PO SCH (22:16)
[2020-01-17] MEDS: TAMSULOSIN HCL 0.4 MG CAP PO SCH (22:16)
[2020-01-17] MEDS: FINASTERIDE 5 MG TAB PO SCH (22:17)
[2020-01-18] MEDS: NITROGLYCERIN 2% OINTMENT 30GM TUBE EXT SCH ×4 (03:14→17:48)
[2020-01-18] MEDS: LEVALBUTEROL HCL 1.25 MG/3 ML NEB NEB SCH ×6 (03:16→22:39)
[2020-01-18] MEDS: HEPARIN SOD 5,000 UNIT/0.5 ML VIAL SQ SCH ×3 (06:13→21:30)
[2020-01-18 07:51] LABS: BUN Creatinine Ratio 17.3 (10-20); Calcium 8.6 mg/dl (8.5-10.1); Creatinine Clr Calc Pharmacy 12.3 ml/min; Est GFR (African American) 12.5; Est GFR (Non-African American) 10.8; Potassium 3.4 mmol/L (3.5-5.1)
[2020-01-18] MEDS: INSULIN ASPART 100 UNITS/ML 3 ML PEN SC SCH ×4 (08:54→21:30)
[2020-01-18] MEDS ORDERED: HEPARIN SOD (PORCINE) 1000 UNIT/ML 10 ML VIAL IV ONE (08:57)
[2020-01-18] MEDS ORDERED: SODIUM CHLORIDE 0.9% 1000ML 1,000 ML IV PRN (08:57)
--- NOTE | 2020-01-18 11:06 | Surgery Progress Note ---
Date of Service doing fine, passed BM, no abdominal pain, no nausea, no vomiting, January 18, 2020 Assessment & Plan (1) SBO (small bowel obstruction): doing fine, KUB- NO SBO no surgical indication now, may try clear diet today, 01/18/2020 11:04am SBO resolved soft diet, will F/U Supervising Physician Co-Signing Physician Notes Attending addendum: Patient seen and examined with Negra Otero PA-C in the ER room B3 Lab and images reviewed, plan of care discussed with patient, family members, and consulting specialists This is a 74-year-old male with past medical history of type 2 diabetes, stage V CKD has a AV fistula on left arm, not on dialysis yet Peripheral vascular disease status post stent, came to ER with complaint of severe shortness of breath started around 3 AM in the morning, patient woke up from sleep unable to breathe, gasping for air In the ER patient was found to be tachypneic, hypoxic Chest x-ray shows progression of pulmonary congestion with right lower lobe infiltrate Patient was recently discharged from hospital on 01/06/2020, was admitted for chest heaviness discomfort, had a nuclear cardiac stress test which showed negative for stress-induced ischemia, resting echo EF was 60 to 65% no wall motion abnormality Patient reports Since discharge home he continued to feel shortness of breath on activity, which progressively got worse in the last 1 week and significant orthopnea experienced last night Physical exam: General: Elderly male, ill-appearing, noted to be in distress for shortness of breath Neck, no JVD appreciated Lungs: Coarse Rales bibasilar, with scattered wheeze Heart, regular S1-S2, no lower extremity edema noted, no JVD Abdomen: Soft nontender normal bowel sound Neuro: No focal neurological deficit, alert awake oriented x3 Assessment and plan Shortness of breath, acute hypoxemic respiratory failure: Possible secondary to volume overload due to progression of acute on chronic kidney disease, Patient's recent echo a week back showed normal ejection fraction, Gout any acute cardiac event given normal nuclear stress test few days ago Ordered for IV Lasix: Discussed with nephrology Dr. Ferrer recommends to give Lasix 80 mg x 1 now Patient will be seen by nephrology Ordered for Gamble catheter for accurate measurement of intake and output Patient reports he still able to make urine Acute on Chronic CHF with diastolic dysfunction: HFp EF: Normal ejection fraction , with diastolic dysfunction noted in recent echo on 01/07/2020 Presents with volume overload possibly secondary to worsening of renal failure Continue diuresis as per nephrology Fluid restriction 1500 mm a day cardiology consulted Gamble to accurate measurement of intake and output Daily weight Monitor in PCU/telemetry Hyperkalemia: Possible secondary to worsening of kidney function, potassium 5.2 without any acute EKG change Ordered for Lasix, low potassium diet, Repeat BMP at 6 PM Nephrology consulted CKD stage IV/ v Presents with volume overload, creatinine worsening to 4.9 Nephrology consulted-Case discussed with Dr. Candelaria Diuresis with Lasix as outlined above CODE STATUS: Full code DVT prophylaxis subcu heparin Please refer to further documentation by Negra Otero PA-C for discussion of other chronic issues Rosa Whitehead MD Subjective Pt was seen and examined Lying in bed with no distress sleeping getting HD Nurse said that pt was awake all night and finally feel a sleep around 5 am Pt has been sleeping for most part this morning Continue to be confused Physical Exam Constitutional: WD/WN, vitals as above Eyes: PERRL, conjunctivae normal, anicteric sclerae ENMT: external ear and nose normal, oropharynx normal Neck: trachea midline, no thyromegaly Respiratory: normal respiratory effort, lungs clear to auscultation Cardiovascular: RRR, no murmur, no edema Gastrointestinal (Abdomen): normal bowel sounds, soft, nontender, no hepatosplenomegaly Skin: no rashes, warm and dry Neurologic: awake Results & Data Vital Signs (Past 12 Hours) Vital Signs Temp Pulse Pulse Pulse Resp BP Pulse Ox 01/18/20 08:00 82 01/18/20 07:32 84 16 90 01/18/20 07:30 36.9 C 88 20 154/80 H 97 01/18/20 04:32 36.7 C 85 18 168/77 H 93 01/18/20 03:16 66 20 91 01/18/20 00:16 80 01/18/20 00:00 36.9 C 79 17 157/71 H 93
[2020-01-18] MEDS: TORSEMIDE 100 MG TAB PO SCH (11:13)
[2020-01-18] MEDS: carvediloL 12.5 MG TAB PO SCH ×2 (11:13→17:58)
[2020-01-18] MEDS: FLUTICASONE/VILANTEROL 200/25MCG 14 PUFFS/INHALER INH SCH (11:13)
[2020-01-18] MEDS: ASPIRIN 81 MG ECTAB PO SCH (11:13)
[2020-01-18] MEDS: UMECLIDINIUM BROMIDE 62.5MCG/BLISTER 7 PUFFS/INHALER INH SCH (11:14)
[2020-01-18] MEDS: PANTOprazole 40 MG TAB PO SCH ×2 (11:14→21:29)
[2020-01-18] MEDS: CHOLECALCIFEROL 1,000 UNITS 25 MCG TAB PO SCH (11:14)
[2020-01-18] MEDS: INSULIN GLARGINE SOLOSTAR 100 UNITS/ML 3 ML PEN SC SCH ×2 (11:14→21:31)
[2020-01-18] MEDS: TRIAMCINOLONE ACET 0.1% CR 15 GM TUBE TOP SCH ×2 (11:15→21:31)
--- NOTE | 2020-01-18 15:14 | Dialysis Progress Note ---
Date of Service January 18, 2020 Assessment & Plan (1) CKD (chronic kidney disease) stage 5, GFR less than 15 ml/min: Patient with CKD 5 not on dialysis at admission but now with ESRD. He has had progressively worsened renal function and recurrent volume overload he was started on hemodialysis due to hyper kalemia, acidemia, uremia, volume overload. Today is his second dialysis treatment. Plan next dialysis January 18 Thereafter start thrice weekly in center hemodialysis at [facility] and or here till discharge arranged. Please have case management make arrangements Cannulating AV fistula has been challenging>> he may need further evaluation with [facility] [employer] [facility] vascular after discharge. Daughter aware. ultrasound of access this admission and vascular evaluation by [facility] vascular reassuring For now, continue torsemide 100 mg daily given that dialysis access may or may not be consistent Continue strict I's and O's and fluid restriction, dialysis diet Present on Admission?: Yes (2) Chronic anemia: Hemoglobin in the eights and sevens initially. Improving with fluid removal on dialysis. Iron studies ordered for the morning Based on these will consider Venofer and or Procrit as indicated with dialysis Present on Admission?: Yes (3) Hypertension: Acceptable control. Continue current doses amlodipine, hydralazine, Coreg, torsemide. Present on Admission?: Yes Subjective Seen on dialysis this afternoon. Tolerating treatment well. Cannulated successfully. Some fecal urgency reported earlier today. Otherwise no complaints such as shortness of breath, uncontrolled musculoskeletal or abdomin al or chest pain, nausea vomiting. Patient unable to ambulate safely and likely for short-term rehab at [facility] after discharge. Daughter at bedside; updated her Review of Systems Review of Systems: All systems reviewed & are unremarkable except as noted in HPI & below Physical Exam Constitutional: well developed and well nourished; no acute distress Lying flat on room air Eyes: EOM intact bilaterally ENMT: Ears: no external ear abnormality Nose: no external nose abnormality Mouth: + dry oral mucous membranes Scabs on the bridge of his nose Neck: no nuchal rigidity Respiratory: normal respiratory effort; no labored breathing Auscultation: lungs clear to auscultation bilaterally and + diminished lung sounds Cardiovascular: Rate/Rhythm: regular rate and regular rhythm Extremities: + AV fistula; no edema Gastrointestinal (Abdomen): Inspection/Auscultation: normal bowel sounds Percussion/Palpation: abdomen soft; abdomen nontender Musculoskeletal: Extremities: strength 5/5 throughout Skin: no rashes, warm and dry Neurologic: albarran, fluent speech, no tremor Psychiatric: Orientation: alert, oriented to person and oriented to place Speech: normal rate/rhythm/volume of speech Affect: + blunted affect Genitourinary: No Gamble Results & Data Vital Signs (Past 12 Hours) Vital Signs Temp Pulse Pulse Pulse Resp BP Pulse Ox 01/18/20 14:52 68 18 93 01/18/20 11:27 69 18 91 01/18/20 11:16 36.6 C 75 16 132/77 93 01/18/20 08:00 82 01/18/20 07:32 84 16 90 01/18/20 07:30 36.9 C 88 20 154/80 H 97 01/18/20 04:32 36.7 C 85 18 168/77 H 93 01/18/20 03:16 66 20 91 Laboratory Results 01/17/20 05:45 01/18/20 06:58 (1) Hypertension Hypertension type: essential hypertension Qualified Code(s): I10 - Essential (primary) hypertension
[2020-01-18] MEDS: HEPARIN SOD (PORCINE) 1000 UNIT/ML 10 ML VIAL IV SCH ×3 (15:26→16:09)
--- NOTE | 2020-01-18 17:11 | Hospitalist Progress Note ---
Date of Service January 18, 2020 Assessment & Plan (1) Acute respiratory failure with hypoxia: (2) CHF (congestive heart failure): Presented with volume overload hypoxia respiratory distress bilateral pulmonary congestion secondary to worsening of renal failure leading to fluid retention Due to combination of volume overload/secondary to renal failure, leading to decompensated CHF with diastolic dysfunction CXR showed cardiomegaly with worsening volume overload and congestive change. ProBNP above 4000's Recent echocardiogram shows diastolic CHF with normal ejection fraction/HFp EF Cardiology on board Fluid management as per Nephro Case discussed with nephro recommended to d/c the lasix drip and started on Torsemide 100mg daily Had HD again today Continue oxygen supplement Continue monitor closely Possible Pneumonia CXR showed Progressive bilateral pulmonary airspace opacities. Continue Cefdinir 300 daily continue monitor COPD exacerbation, Possibly due to volume overload On 4 L oxygen SPO2 98% Initially required BiPAP treatment, Off BiPAP now on 4 L oxygen via nasal cannula Received Solu-Medrol 125 mg x 1, then starting on was started on Prednisone Became confuse today, will hold prednisone Continue oxygen supplement Pulmonology evaluation if no improvement of respiratory status Leukocytosis Possible related to volume overload WBC on admission 13K Afebrile, Lactic acid 1.1, procalcitonin 0.24 IV Zosyn was discontinued Resolved (3) CKD (chronic kidney disease) stage 5, GFR less than 15 ml/min: Baseline creatinine 3.9-4.0 Acute worsening of chronic kidney disease now stage V, BUN/creatinine 74 and 4.99 Nephrology on board Cannulation to fistula was not successful yesterday Ultrasound of fistula showsed Patent arteriovenous fistula of the left upper extremity. Case discussed with Dr. Duncan today recommnended to use the fistula since uls showed patent then if malfunction, then will get fistulogram Had HD done yesterday and removed 1 L fluid today Had HD done today again Case discussed with Nephrology that beyer to HD tomorrow again Abdominal pain CT abd/pelvis showed a distal/terminal small bowel is decompressed. The upstream small bowel loops are distended and fluid-filled. KUB showed nonspecific bowel gas pattern with gaseous prominence of both large and small bowel loops Surgery on board recommended to advance diet to soft diet resolved (4) Diabetes mellitus, type 2: Last A1c 5.7 on 12/15/2019 DM control On Tradjenta as outpatient Hold Tradjenta during hospital stay Continue NovoLog sliding scale per protocol (5) Hypertension: BP stable Continue Coreg 25 mg twice daily and hydralazine 75 mgx 3 times daily PRN IV hydralazine ordered Continue monitor BP (6) PAD (peripheral artery disease): S/P stent to LLE in [place] by Dr. 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 No evidence of GI bleed Baseline hemoglobin between 8 and 9 Hgb 8.8 today (8) BPH (benign prostatic hyperplasia): On Flomax and finasteride as outpatient (9) Tobacco abuse: Continues to smoke half a half a pack of cigarette Strongly encouraged smoking cessation Consider nicotine patch if needed (10) DVT prophylaxis: SQ Heparin CODE STATUS: Full code Discussed with patient Disposition: Patient lives at home was independent in ADLs Presents with acute illness PT OT evaluation will be requested prior to discharge Patient will need arrangement for outpatient chronic dialysis Social service consulted for discharge planning to Admission and Anticipated Discharge Date Admission Date: January 12, 2020 Subjective Pt was seen and examined Lying in bed with no distress Pt is more awake and responsive today I spoke to the daughter and provided updated to her Denies any chest pain, palpitation and SOB Physical Exam Physical Exam: General- Confused Head- atraumatic Eyes- PERRL, EOMI, ENT- oropharynx clear Neck- supple, no JVD Lungs- Diminished BS Heart- regular rhythm; no murmur Abdomen- normal bowel sounds, soft, nontender Extremities- no calf tenderness Neuro- alert, oriented, no facial palsy; no dysarthria Skin- warm & dry Results & Data ([facility]) Vital Signs (Past 12 Hours) Vital Signs Temp Pulse Pulse Pulse Resp BP BP 01/18/20 16:40 64 102/61 01/18/20 16:20 74 105/71 01/18/20 16:00 67 115/65 01/18/20 15:40 68 121/58 L 01/18/20 15:20 69 121/58 L 01/18/20 15:00 67 102/62 01/18/20 14:52 68 18 01/18/20 14:40 63 103/53 L 01/18/20 14:25 72 115/59 L 01/18/20 14:08 36.6 C 68 01/18/20 11:27 69 18 01/18/20 11:16 36.6 C 75 16 132/77 01/18/20 08:00 82 01/18/20 07:32 84 16 01/18/20 07:30 36.9 C 88 20 154/80 H Pulse Ox 01/18/20 16:40 01/18/20 16:20 01/18/20 16:00 01/18/20 15:40 01/18/20 15:20 01/18/20 15:00 01/18/20 14:52 93 01/18/20 14:40 01/18/20 14:25 01/18/20 14:08 01/18/20 11:27 91 01/18/20 11:16 93 01/18/20 08:00 01/18/20 07:32 90 01/18/20 07:30 97 (1) Hypertension Hypertension type: essential hypertension Qualified Code(s): I10 - Essential (primary) hypertension
[2020-01-18] MEDS: FINASTERIDE 5 MG TAB PO SCH (21:29)
[2020-01-18] MEDS: ATORVASTATIN 40 MG TAB PO SCH (21:29)
[2020-01-18] MEDS: CITALOPRAM 40 MG TAB PO SCH (21:29)
[2020-01-18] MEDS: CEFDINIR 300 MG CAP PO SCH (21:29)
[2020-01-18] MEDS: TAMSULOSIN HCL 0.4 MG CAP PO SCH (21:29)
[2020-01-18] MEDS: AMLODIPINE BESYLATE 5 MG TAB PO SCH (21:29)
[2020-01-19] MEDS: LEVALBUTEROL HCL 1.25 MG/3 ML NEB NEB SCH ×6 (03:16→22:31)
[2020-01-19] MEDS: HEPARIN SOD 5,000 UNIT/0.5 ML VIAL SQ SCH ×3 (06:05→22:01)
[2020-01-19 06:56] LABS: BUN Creatinine Ratio 14.1 (10-20); Calcium 8.4 mg/dl (8.5-10.1); Creatinine Clr Calc Pharmacy 13.8 ml/min; Est GFR (Non-African American) 12.9; Potassium 3.8 mmol/L (3.5-5.1)
[2020-01-19] MEDS ORDERED: HEPARIN SOD (PORCINE) 1000 UNIT/ML 10 ML VIAL IV ONE (08:27)
[2020-01-19] MEDS ORDERED: SODIUM CHLORIDE 0.9% 1000ML 1,000 ML IV PRN ×2 (08:27→08:39)
[2020-01-19] MEDS ORDERED: EPOETIN ALFA 10,000 UNITS/ML VIAL IV ONE (08:39)
[2020-01-19] MEDS: INSULIN ASPART 100 UNITS/ML 3 ML PEN SC SCH ×5 (08:41→22:02)
[2020-01-19] MEDS: INSULIN GLARGINE SOLOSTAR 100 UNITS/ML 3 ML PEN SC SCH ×2 (08:42→22:03)
[2020-01-19] MEDS: TRIAMCINOLONE ACET 0.1% CR 15 GM TUBE TOP SCH ×2 (08:44→22:02)
[2020-01-19] MEDS: PANTOprazole 40 MG TAB PO SCH ×2 (08:44→22:00)
[2020-01-19] MEDS: FLUTICASONE/VILANTEROL 200/25MCG 14 PUFFS/INHALER INH SCH (08:44)
[2020-01-19] MEDS: ASPIRIN 81 MG ECTAB PO SCH (08:45)
[2020-01-19] MEDS: UMECLIDINIUM BROMIDE 62.5MCG/BLISTER 7 PUFFS/INHALER INH SCH (08:45)
[2020-01-19] MEDS ORDERED: IRON SUCROSE 100 MG in SYRINGE 0 ML IV SCH (08:45)
[2020-01-19] MEDS: CHOLECALCIFEROL 1,000 UNITS 25 MCG TAB PO SCH (08:45)
[2020-01-19] MEDS: carvediloL 12.5 MG TAB PO SCH (09:09)
[2020-01-19] MEDS: TORSEMIDE 100 MG TAB PO SCH (10:01)
[2020-01-19] MEDS: HEPARIN SOD (PORCINE) 1000 UNIT/ML 10 ML VIAL IV SCH ×2 (10:24→10:25)
--- NOTE | 2020-01-19 12:28 | Surgery Progress Note ---
Date of Service January 19, 2020 Assessment & Plan (1) SBO (small bowel obstruction): seen in dialysis unit with Dr. Myers will recheck KUB today may keep on full liquids for today Subjective on full liquid diet, no N/V, no recent BM Physical Exam Gastrointestinal (Abdomen): Inspection/Auscultation: abdomen not distended Percussion/Palpation: abdomen soft; abdomen nontender Results & Data Vital Signs (Past 12 Hours) Vital Signs Temp Pulse Pulse Pulse Resp BP BP 01/19/20 11:39 66 97/57 L 01/19/20 11:20 69 77/48 L 01/19/20 11:02 66 95/48 L 01/19/20 10:40 66 105/46 L 01/19/20 10:38 64 01/19/20 10:20 65 97/56 L 01/19/20 10:07 65 120/56 L 01/19/20 09:45 37.0 C 65 01/19/20 07:21 37.1 C 64 18 101/56 L 01/19/20 07:07 65 20 01/19/20 03:46 36.8 C 67 17 93/44 L 01/19/20 03:16 66 14 Pulse Ox 01/19/20 11:39 01/19/20 11:20 01/19/20 11:02 01/19/20 10:40 01/19/20 10:38 01/19/20 10:20 01/19/20 10:07 01/19/20 09:45 01/19/20 07:21 96 01/19/20 07:07 92 01/19/20 03:46 90 01/19/20 03:16 90 PG Care Time/CCT Total # of Minutes Spent Total Time Spent with Patient: Total time spent is greater than 50% in coordination of care (as documented) at patient's floor/unit and/or counseling patient: Coding Level of Care Code 64644 Subseq Hosp Care Lvl 1 Diagnoses SBO (small bowel obstruction) K56.609
--- NOTE | 2020-01-19 14:22 | XRay Report ---
XR KUB/Abdomen 1 view CLINICAL HISTORY: PSBO bowel distention COMPARISON STUDY: 01/16/2020 FINDINGS: Improved exam. No evidence of bowel distention of the current time. Small bowel as well as colonic distention in the prior study has resolved. IMPRESSION: Improved exam with the bowel pattern now considered nonobstructive ACT 112: Negative or not required by law. The above report was generated using voice recognition software. It may contain grammatical, syntax or spelling errors. Electronically signed by: Sher Sorenson M.D. 01/19/2020 2:20 PM
--- NOTE | 2020-01-19 18:28 | Nephrology Progress Note ---
Date of Service January 19, 2020 Assessment & Plan (1) CKD (chronic kidney disease) stage 5, GFR less than 15 ml/min: Patient with CKD 5 not on dialysis at admission but now with ESRD. He has had progressively worsened renal function and recurrent volume overload he was started on hemodialysis due to hyper kalemia, acidemia, uremia, volume overload. Today is his third dialysis treatment. Plan next dialysis January 20 needs to be set up for in center hemodialysis at [facility] and or here till discharge arranged. have d/w case mgt. Cannulating AV fistula has been challenging>> he may need further evaluation with [facility] vascular after discharge. Daughter aware. ultrasound of access this admission and vascular evaluation by [facility] vascular reassuring; cannulated successfully now x 3 txs. >>tolerated only 400 mL fluid removal today For tomorrow will lower torsemide to 40 mg daily and follow volume status Continue strict I's and O's and fluid restriction, dialysis diet (2) Chronic anemia: Hemoglobin in the eights and sevens initially. Improving with fluid removal on dialysis. Iron studies 01/18 w/ t stn 9% >started 100 mg venofer IV q HD tx 01/18 got 10K units epo on HD >recheck hgb in 24-48 hrs (3) Hypertension: low today prior to HD despite holding bp meds; -halved amlodipine dose to 5 mg, coreg dose to 6.25 mg bid -lowered torsemide as above -will lower hydralazine from 75 mg tid to 25 mg bid Admission and Anticipated Discharge Date Admission Date: January 12, 2020 Subjective seen on rounds this am at 0850; waking up/resting quietly; feels breathing "coming along" but still "work to do" to make it better; no edema. no uncontrolled pain in abd, chest, musculosleketal. states he tolerated breakfast Review of Systems Review of Systems: All systems reviewed & are unremarkable except as noted in HPI & below Physical Exam Constitutional: well developed, well nourished, + thin and + behavioral limitations; no acute distress sitting in bed eyes closed but rouses fully on RA Eyes: EOM intact bilaterally ENMT: Ears: no external ear abnormality Nose: no external nose abnormality Mouth: + dry oral mucous membranes Neck: no nuchal rigidity Respiratory: normal respiratory effort; no labored breathing Auscultation: lungs clear to auscultation bilaterally and + diminished lung sounds Cardiovascular: RRR, no murmur, no edema Rate/Rhythm: regular rate and regular rhythm Extremities: + AV fistula; no edema Gastrointestinal (Abdomen): Inspection/Auscultation: normal bowel sounds Percussion/Palpation: abdomen soft; abdomen nontender Musculoskeletal: Extremities: strength 5/5 throughout Skin: no rashes, warm and dry Neurologic: albarran, fluent/appropriate speech, no tremor Psychiatric: Orientation: alert, oriented to person and oriented to place Speech: normal rate/rhythm/volume of speech Affect: + blunted affect Results & Data ([place]) Vital Signs (Past 12 Hours) Vital Signs Temp Pulse Pulse Pulse Resp BP BP 01/19/20 15:40 72 01/19/20 15:38 36.5 C 72 23 118/64 01/19/20 14:51 68 20 01/19/20 14:17 36.7 C 71 20 127/54 L 01/19/20 12:49 37.0 C 69 99/55 L 01/19/20 12:40 57 L 99/53 L 01/19/20 12:20 62 95/54 L 01/19/20 12:00 65 106/56 L 01/19/20 11:39 66 97/57 L 01/19/20 11:20 69 77/48 L 01/19/20 11:02 66 95/48 L 01/19/20 10:40 66 105/46 L 01/19/20 10:38 64 01/19/20 10:20 65 97/56 L 01/19/20 10:07 65 120/56 L 01/19/20 09:45 37.0 C 65 01/19/20 07:21 37.1 C 64 18 101/56 L 01/19/20 07:07 65 20 Pulse Ox 01/19/20 15:40 01/19/20 15:38 92 01/19/20 14:51 90 01/19/20 14:17 90 01/19/20 12:49 01/19/20 12:40 01/19/20 12:20 01/19/20 12:00 01/19/20 11:39 01/19/20 11:20 01/19/20 11:02 01/19/20 10:40 01/19/20 10:38 01/19/20 10:20 01/19/20 10:07 01/19/20 09:45 01/19/20 07:21 96 01/19/20 07:07 92 Laboratory Results 01/17/20 05:45 01/19/20 05:48 transferrin sat 9% (1) Hypertension Hypertension type: essential hypertension Qualified Code(s): I10 - Essential (primary) hypertension
[2020-01-19] MEDS: carvediloL 6.25 MG TAB PO SCH (18:44)
--- NOTE | 2020-01-19 19:12 | Hospitalist Progress Note ---
Date of Service January 19, 2020 Assessment & Plan (1) Acute respiratory failure with hypoxia: (2) CHF (congestive heart failure): Presented with volume overload hypoxia respiratory distress bilateral pulmonary congestion secondary to worsening of renal failure leading to fluid retention Due to combination of volume overload/secondary to renal failure, leading to decompensated CHF with diastolic dysfunction CXR showed cardiomegaly with worsening volume overload and congestive change. ProBNP above 4000's Recent echocardiogram shows diastolic CHF with normal ejection fraction/HFp EF Cardiology on board Fluid management as per Nephro Lasix drip discontinued and started on Torsemide 100mg daily due to low BP torsemide decreased to 40mg daily Had HD again today Continue oxygen supplement Continue monitor closely Possible Pneumonia CXR showed Progressive bilateral pulmonary airspace opacities. Continue Cefdinir 300 daily continue monitor COPD exacerbation, Possibly due to volume overload On 4 L oxygen SPO2 98% Initially required BiPAP treatment, Off BiPAP now on 4 L oxygen via nasal cannula Received Solu-Medrol 125 mg x 1, then starting on was started on Prednisone Bbcame confuse today, will hold prednisone Continue oxygen supplement Pulmonology evaluation if no improvement of respiratory status Leukocytosis Possible related to volume overload WBC on admission 13K Afebrile, Lactic acid 1.1, procalcitonin 0.24 IV Zosyn was discontinued Resolved (3) CKD (chronic kidney disease) stage 5, GFR less than 15 ml/min: Baseline creatinine 3.9-4.0 Acute worsening of chronic kidney disease now stage V, BUN/creatinine 74 and 4.99 Nephrology on board Cannulation to fistula was not successful yesterday Ultrasound of fistula showsed Patent arteriovenous fistula of the left upper extremity. Case discussed with Dr. Duncan today recommnended to use the fistula since uls showed patent then if malfunction, then will get fistulogram y Had HD done today again, next HD schedule for 01/20 Will need to arrange for outpatient HD in [place] Abdominal pain CT abd/pelvis showed a distal/terminal small bowel is decompressed. The upstream small bowel loops are distended and fluid-filled. Repeat KUB today showed no evidence of bowel distention. Surgery on board recommended to continue full liquid diet today resolved (4) Diabetes mellitus, type 2: Last A1c 5.7 on 12/15/2019 DM control On Tradjenta as outpatient Hold Tradjenta during hospital stay Continue NovoLog sliding scale per protocol (5) Hypertension: BP stable Continue Coreg 25 mg twice daily hydralazine cecreased to 25 mgx 3 times daily Torsemide decreased to 40mg Continue monitor BP (6) PAD (peripheral artery disease): S/P stent to LLE in [place] by Dr. 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 No evidence of GI bleed Baseline hemoglobin between 8 and 9 Hgb 9.2 (8) BPH (benign prostatic hyperplasia): On Flomax and finasteride as outpatient (9) Tobacco abuse: Continues to smoke half a half a pack of cigarette Strongly encouraged smoking cessation Consider nicotine patch if needed (10) DVT prophylaxis: SQ Heparin CODE STATUS: Full code Discussed with patient Disposition: Patient lives at home was independent in ADLs Presents with acute illness PT OT evaluation will be requested prior to discharge Patient will need arrangement for outpatient chronic dialysis Social service consulted for discharge planning to Admission and Anticipated Discharge Date Admission Date: January 12, 2020 Subjective Pt was seen and examined Lying in bed with no distress Pt mental status is much better today Denies any chest pain, palpitation and SOB Physical Exam Physical Exam: General- No acute distress Head- atraumatic Eyes- PERRL, EOMI, ENT- oropharynx clear Neck- supple, no JVD Lungs- Diminished BS Heart- regular rhythm; no murmur Abdomen- normal bowel sounds, soft, nontender Extremities- no calf tenderness Neuro- alert, oriented, no facial palsy; no dysarthria Skin- warm & dry Results & Data ([facility]) Vital Signs (Past 12 Hours) Vital Signs Temp Pulse Pulse Pulse Resp BP BP 01/19/20 15:40 72 01/19/20 15:38 36.5 C 72 23 118/64 01/19/20 14:51 68 20 01/19/20 14:17 36.7 C 71 20 127/54 L 01/19/20 12:49 37.0 C 69 99/55 L 01/19/20 12:40 57 L 99/53 L 01/19/20 12:20 62 95/54 L 01/19/20 12:00 65 106/56 L 01/19/20 11:39 66 97/57 L 01/19/20 11:20 69 77/48 L 01/19/20 11:02 66 95/48 L 01/19/20 10:40 66 105/46 L 01/19/20 10:38 64 01/19/20 10:20 65 97/56 L 01/19/20 10:07 65 120/56 L 01/19/20 09:45 37.0 C 65 01/19/20 07:21 37.1 C 64 18 101/56 L 01/19/20 07:07 65 20 Pulse Ox 01/19/20 15:40 01/19/20 15:38 92 01/19/20 14:51 90 01/19/20 14:17 90 01/19/20 12:49 01/19/20 12:40 01/19/20 12:20 01/19/20 12:00 01/19/20 11:39 01/19/20 11:20 01/19/20 11:02 01/19/20 10:40 01/19/20 10:38 01/19/20 10:20 01/19/20 10:07 01/19/20 09:45 01/19/20 07:21 96 01/19/20 07:07 92 (1) Hypertension Hypertension type: essential hypertension Qualified Code(s): I10 - Essential (primary) hypertension
[2020-01-19] MEDS: CITALOPRAM 40 MG TAB PO SCH (22:00)
[2020-01-19] MEDS: ATORVASTATIN 40 MG TAB PO SCH (22:01)
[2020-01-19] MEDS: TAMSULOSIN HCL 0.4 MG CAP PO SCH (22:01)
[2020-01-19] MEDS: FINASTERIDE 5 MG TAB PO SCH (22:01)
[2020-01-19] MEDS: AMLODIPINE BESYLATE 5 MG TAB PO SCH (22:01)
[2020-01-20] MEDS: LEVALBUTEROL HCL 1.25 MG/3 ML NEB NEB SCH ×6 (02:45→23:15)
[2020-01-20] MEDS: HEPARIN SOD 5,000 UNIT/0.5 ML VIAL SQ SCH ×3 (06:15→21:33)
[2020-01-20 07:14] LABS: Hemoglobin 8.2 g/dL (14.0-18.0); Mean Corpuscular Hemoglobin 29.6 pg (25-34); Mean Corpuscular Hgb Conc 31.5 g/dL (32-36); Mean Corpuscular Volume 93.9 fL (80-100); Mean Platelet Volume 10.6 fL (7.4-10.4); Nucleated RBC # (auto) 0.02 K/uL (0-0); Nucleated RBC % (auto) 0.1 %; Platelet Count 217 K/uL (130-400); RDW Coefficient of Variation 13.7 % (11.5-14.5); RDW Standard Deviation 46.8 fL (36.4-46.3); Red Blood Count 2.77 M/uL (4.7-6.1); White Blood Count 10.03 K/uL (4.8-10.8)
[2020-01-20 07:39] LABS: BUN Creatinine Ratio 12.3 (10-20); Calcium 8.6 mg/dl (8.5-10.1); Creatinine Clr Calc Pharmacy 15.5 ml/min; Est GFR (African American) 16.9; Est GFR (Non-African American) 14.6; Potassium 3.2 mmol/L (3.5-5.1)
--- NOTE | 2020-01-20 07:55 | Surgery Progress Note ---
Date of Service January 20, 2020 Assessment & Plan (1) SBO (small bowel obstruction): KUB without obstructive findings start soft diet Subjective no N/V, passing flatus but no BM, tolerating full liquids Physical Exam Gastrointestinal (Abdomen): Inspection/Auscultation: abdomen not distended Percussion/Palpation: abdomen soft; abdomen nontender Results & Data Vital Signs (Past 12 Hours) Vital Signs Temp Pulse Pulse Pulse Resp BP Pulse Ox 01/20/20 07:47 36.7 C 56 L 18 111/50 L 95 01/20/20 07:17 58 L 16 94 01/20/20 04:31 36.4 C L 58 L 18 113/54 L 92 01/20/20 02:45 57 L 18 93 01/20/20 00:23 36.9 C 58 L 19 108/55 L 93 01/20/20 00:00 59 L 01/19/20 22:31 59 L 20 92 PG Care Time/CCT Total # of Minutes Spent Total Time Spent with Patient: Total time spent is greater than 50% in coordination of care (as documented) at patient's floor/unit and/or counseling patient: Coding Level of Care Code 06031 Subseq Hosp Care Lvl 1 Diagnoses SBO (small bowel obstruction) K56.609
[2020-01-20] MEDS: INSULIN ASPART 100 UNITS/ML 3 ML PEN SC SCH ×4 (08:18→21:34)
[2020-01-20] MEDS: FLUTICASONE/VILANTEROL 200/25MCG 14 PUFFS/INHALER INH SCH (08:21)
[2020-01-20] MEDS: ASPIRIN 81 MG ECTAB PO SCH (08:22)
[2020-01-20] MEDS: CHOLECALCIFEROL 1,000 UNITS 25 MCG TAB PO SCH (08:22)
[2020-01-20] MEDS: carvediloL 6.25 MG TAB PO SCH ×2 (08:23→16:25)
[2020-01-20] MEDS: TORSEMIDE 20 MG TAB PO SCH (08:23)
[2020-01-20] MEDS: PANTOprazole 40 MG TAB PO SCH ×2 (08:23→21:30)
[2020-01-20] MEDS: TRIAMCINOLONE ACET 0.1% CR 15 GM TUBE TOP SCH ×2 (08:24→21:31)
[2020-01-20] MEDS: INSULIN GLARGINE SOLOSTAR 100 UNITS/ML 3 ML PEN SC SCH ×2 (08:30→21:31)
[2020-01-20] MEDS: UMECLIDINIUM BROMIDE 62.5MCG/BLISTER 7 PUFFS/INHALER INH SCH (12:29)
[2020-01-20] MEDS ORDERED: POTASSIUM CHLORIDE 20 MEQ TABCR PO ONE (13:45)
--- NOTE | 2020-01-20 19:10 | Hospitalist Progress Note ---
Date of Service January 20, 2020 Assessment & Plan (1) Acute respiratory failure with hypoxia: (2) CHF (congestive heart failure): Presented with volume overload hypoxia respiratory distress bilateral pulmonary congestion secondary to worsening of renal failure leading to fluid retention Due to combination of volume overload/secondary to renal failure, leading to decompensated CHF with diastolic dysfunction CXR showed cardiomegaly with worsening volume overload and congestive change. ProBNP above 4000's Recent echocardiogram shows diastolic CHF with normal ejection fraction/HFp EF Cardiology on board Fluid management as per Nephro Lasix drip discontinued and started on Torsemide 100mg daily due to low BP torsemide decreased to 40mg daily, continue torsemide 40mg today Next HD schedule for tomorrow Continue oxygen supplement Continue monitor closely Possible Pneumonia CXR showed Progressive bilateral pulmonary airspace opacities. Continue Cefdinir 300 daily continue monitor COPD exacerbation, Possibly due to volume overload On 4 L oxygen SPO2 98% Initially required BiPAP treatment, Off BiPAP now on 4 L oxygen via nasal cannula Received Solu-Medrol 125 mg x 1, then starting on was started on Prednisone Bbcame confuse today, will hold prednisone Continue oxygen supplement Pulmonology evaluation if no improvement of respiratory status Clinically improved significantly Leukocytosis Possible related to volume overload WBC on admission 13K Afebrile, Lactic acid 1.1, procalcitonin 0.24 IV Zosyn was discontinued Resolved (3) CKD (chronic kidney disease) stage 5, GFR less than 15 ml/min: Baseline creatinine 3.9-4.0 Acute worsening of chronic kidney disease now stage V, BUN/creatinine 74 and 4.99 Nephrology on board Cannulation to fistula was not successful yesterday Ultrasound of fistula showsed Patent arteriovenous fistula of the left upper extremity. Case discussed with Dr. Duncan today recommnended to use the fistula since uls showed patent then if malfunction, then will get fistulogram y Had HD done today again, next HD schedule for 01/20 Will need to arrange for outpatient HD in [place] case discussed with case management Abdominal pain CT abd/pelvis showed a distal/terminal small bowel is decompressed. The upstream small bowel loops are distended and fluid-filled. Repeat KUB today showed no evidence of bowel distention. Surgery on board recommended to advance diet to soft food Denies any abdominal pain Stable (4) Diabetes mellitus, type 2: Last A1c 5.7 on 12/15/2019 DM control On Tradjenta as outpatient Hold Tradjenta during hospital stay Continue NovoLog sliding scale per protocol (5) Hypertension: BP stable Continue Coreg 25 mg twice daily hydralazine cecreased to 25 mgx 3 times daily Torsemide decreased to 40mg Continue monitor BP Stable (6) PAD (peripheral artery disease): S/P stent to LLE in [place] by Dr. 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 No evidence of GI bleed Baseline hemoglobin between 8 and 9 Hgb 8.2 today (8) BPH (benign prostatic hyperplasia): On Flomax and finasteride as outpatient (9) Tobacco abuse: Continues to smoke half a half a pack of cigarette Strongly encouraged smoking cessation Consider nicotine patch if needed (10) DVT prophylaxis: SQ Heparin CODE STATUS: Full code Discussed with patient Disposition: Waiting for placement to rehab Patient will need arrangement for outpatient chronic dialysis Will Transfer to medical Admission and Anticipated Discharge Date Admission Date: January 12, 2020 Subjective Pt was seen and examined Sitting in chair with no distress Pt is looking much better His mental status is back to baseline He said that he feels fine Denies any chest pain, palpitation and SOB Physical Exam Physical Exam: General- No acute distress Head- atraumatic Eyes- PERRL, EOMI, ENT- oropharynx clear Neck- supple, no JVD Lungs- No wheezing Heart- regular rhythm; no murmur Abdomen- normal bowel sounds, soft, nontender Extremities- no calf tenderness Neuro- alert, oriented, no facial palsy; no dysarthria Skin- warm & dry Results & Data ([facility]) Vital Signs (Past 12 Hours) Vital Signs Temp Pulse Pulse Resp BP Pulse Ox 01/20/20 16:07 36.5 C 66 18 107/57 L 94 01/20/20 15:02 68 20 94 01/20/20 11:34 36.5 C 60 17 101/55 L 93 01/20/20 11:25 64 18 92 01/20/20 07:47 36.7 C 56 L 18 111/50 L 95 01/20/20 07:17 58 L 16 94 (1) Hypertension Hypertension type: essential hypertension Qualified Code(s): I10 - Essential (primary) hypertension
[2020-01-20] MEDS: FINASTERIDE 5 MG TAB PO SCH (21:30)
[2020-01-20] MEDS: ATORVASTATIN 40 MG TAB PO SCH (21:30)
[2020-01-20] MEDS: CITALOPRAM 40 MG TAB PO SCH (21:30)
[2020-01-20] MEDS: TAMSULOSIN HCL 0.4 MG CAP PO SCH (21:31)
[2020-01-20] MEDS: CEFDINIR 300 MG CAP PO SCH (21:31)
[2020-01-20] MEDS: AMLODIPINE BESYLATE 5 MG TAB PO SCH (21:32)
[2020-01-21] MEDS: LEVALBUTEROL HCL 1.25 MG/3 ML NEB NEB SCH ×6 (03:29→23:23)
[2020-01-21] MEDS: HEPARIN SOD 5,000 UNIT/0.5 ML VIAL SQ SCH ×3 (05:22→21:29)
[2020-01-21] MEDS ORDERED: SODIUM CHLORIDE 0.9% 1000ML 1,000 ML IV PRN (06:51)
[2020-01-21] MEDS ORDERED: HEPARIN SOD (PORCINE) 1000 UNIT/ML 10 ML VIAL IV ONE (07:02)
[2020-01-21] MEDS ORDERED: EPOETIN ALFA 10,000 UNITS/ML VIAL IV SCH (07:15)
[2020-01-21] MEDS ORDERED: IRON SUCROSE 100 MG in SYRINGE 0 ML IV SCH (07:15)
[2020-01-21 07:29] LABS: Hematocrit (blood only) 24.1 % (42-52); Hemoglobin 7.5 g/dL (14.0-18.0); Mean Corpuscular Hemoglobin 29.2 pg (25-34); Mean Corpuscular Hgb Conc 31.1 g/dL (32-36); Mean Corpuscular Volume 93.8 fL (80-100); Mean Platelet Volume 9.9 fL (7.4-10.4); Platelet Count 244 K/uL (130-400); RDW Coefficient of Variation 13.5 % (11.5-14.5); RDW Standard Deviation 46.2 fL (36.4-46.3); Red Blood Count 2.57 M/uL (4.7-6.1); White Blood Count 10.28 K/uL (4.8-10.8)
[2020-01-21 07:57] LABS: BUN Creatinine Ratio 13.1 (10-20); Calcium 8.3 mg/dl (8.5-10.1); Creatinine Clr Calc Pharmacy 12.7 ml/min; Est GFR (African American) 13.2; Est GFR (Non-African American) 11.4; Potassium 3.3 mmol/L (3.5-5.1)
--- NOTE | 2020-01-21 08:28 | Surgery Progress Note ---
Date of Service January 21, 2020 Assessment & Plan (1) SBO (small bowel obstruction): Patient feeling well denies any abdominal symptoms and is tolerating a diet passing gas we will sign off, please call with any questions concerns dispo planning per medicine Subjective Patient lying in bed undergoing neb treatment. Offers no complaints. He said he tolerated a diet yesterday without nausea/vomiting. He is passing flatus, no BM. Physical Exam Physical Exam: awake/alert Constitutional: well developed and well nourished; no acute distress Gastrointestinal (Abdomen): Inspection/Auscultation: abdomen not distended Percussion/Palpation: abdomen soft; abdomen nontender Results & Data Vital Signs (Past 12 Hours) Vital Signs Temp Pulse Pulse Resp BP Pulse Ox 01/21/20 07:42 59 L 18 93 01/21/20 07:24 36.7 C 62 16 136/61 94 01/21/20 05:27 62 123/54 L 01/21/20 03:29 69 18 93 01/20/20 23:15 61 18 98 01/20/20 23:00 36.8 C 58 L 20 110/51 L 97 PG Care Time/CCT Total # of Minutes Spent Total Time Spent with Patient: Total time spent is greater than 50% in coordination of care (as documented) at patient's floor/unit and/or counseling patient: Coding Level of Care Code 48115 Subseq Hosp Care Lvl 1 Diagnoses SBO (small bowel obstruction) K56.609
[2020-01-21] MEDS: INSULIN ASPART 100 UNITS/ML 3 ML PEN SC SCH ×4 (08:47→21:29)
[2020-01-21] MEDS: UMECLIDINIUM BROMIDE 62.5MCG/BLISTER 7 PUFFS/INHALER INH SCH (08:48)
[2020-01-21] MEDS: INSULIN GLARGINE SOLOSTAR 100 UNITS/ML 3 ML PEN SC SCH ×2 (08:48→21:30)
[2020-01-21] MEDS: FLUTICASONE/VILANTEROL 200/25MCG 14 PUFFS/INHALER INH SCH (08:48)
--- NOTE | 2020-01-21 09:57 | Progress Notes ---
DATE: 01/21/2020 SUBJECTIVE: The patient was seen in dialysis. We do have significant problem with needle cannulation. Blood pressure is reasonable at 136/61. Just started dialysis and so far he is tolerating fine, but there is issue with AV fistula. HEENT: Mucous membrane is moist. NECK: Supple. No jugular venous distention. CHEST: Bilateral clear to auscultation. CARDIOVASCULAR: S1, S2 regular. ABDOMEN: Soft, nontender. EXTREMITIES: Shows no edema. LABORATORY TESTS: From this morning was reviewed. Hemoglobin is low at 7.5, platelet count 244, creatinine 4.6, BUN 61. Sodium 135, potassium 3.3. ASSESSMENT AND PLAN: Chronic kidney disease stage V, newly started with dialysis. The big issue with dialysis at this time is needle cannulation and fistula. I believe he will need angioplasty after discharge. We will continue the dialysis treatment as per the prescription. We are planning to do for 3.75 hours. AV fistula will be used for care under 2.25 calcium and not planning to take any aggressive ultrafiltration. Will take up to 1 liter. MTDD
[2020-01-21] MEDS: carvediloL 6.25 MG TAB PO SCH ×2 (10:54→17:05)
[2020-01-21] MEDS: HEPARIN SOD (PORCINE) 1000 UNIT/ML 10 ML VIAL IV SCH ×2 (11:08→11:09)
[2020-01-21 11:27] LABS: Hematocrit (blood only) 23.9 % (42-52); Hemoglobin 7.6 g/dL (14.0-18.0); Mean Corpuscular Hemoglobin 29.6 pg (25-34); Mean Platelet Volume 10.6 fL (7.4-10.4); Platelet Count 274 K/uL (130-400); RDW Coefficient of Variation 13.5 % (11.5-14.5); RDW Standard Deviation 45.6 fL (36.4-46.3); Red Blood Count 2.57 M/uL (4.7-6.1); White Blood Count 9.47 K/uL (4.8-10.8)
[2020-01-21 11:42] LABS: Mean Corpuscular Hgb Conc 31.8 g/dL (32-36)
[2020-01-21] MEDS: TORSEMIDE 20 MG TAB PO SCH (11:56)
--- NOTE | 2020-01-21 11:58 | Hospitalist Progress Note ---
Date of Service January 21, 2020 Assessment & Plan (1) Acute respiratory failure with hypoxia: (2) CHF (congestive heart failure): Presented with volume overload hypoxia respiratory distress bilateral pulmonary congestion secondary to worsening of renal failure leading to fluid retention Due to combination of volume overload/secondary to renal failure, leading to decompensated CHF with diastolic dysfunction CXR showed cardiomegaly with worsening volume overload and congestive change. ProBNP above 4000's Recent echocardiogram shows diastolic CHF with normal ejection fraction/HFp EF Cardiology on board Fluid management as per Nephro Lasix drip discontinued and started on Torsemide 100mg daily due to low BP torsemide decreased to 40mg daily With hypotensive episode today, all antihypertensives are currently on hold. Discussed with RN Did not get full HD today Currently asymptomatic. Will monitor BP and recheck orthostatics Has been weaned off oxygen CBC stat did not show any drop in Hb Possible Pneumonia CXR showed Progressive bilateral pulmonary airspace opacities. Continue Cefdinir 300mg q48h, renally dosed Continue to monitor COPD exacerbation, Possibly due to volume overload Was on 4 L oxygen SPO2 98% Initially required BiPAP treatment, Off BiPAP now on 4 L oxygen via nasal cannula Received Solu-Medrol 125 mg x 1, then started was started on Prednisone, became confused and steroid was discontinued Now weaned off oxygen Clinically improved Continue inhalers (3) CKD (chronic kidney disease) stage 5, GFR less than 15 ml/min: Baseline creatinine 3.9-4.0 Acute worsening of chronic kidney disease now stage V, BUN/creatinine 74 and 4.99 Nephrology on board Cannulation to fistula was not successful initially Ultrasound of fistula showed Patent arteriovenous fistula of the left upper extremity. Dr Sharma discussed case with Dr. Duncan who recommended to use the fistula since USS showed patent then if malfunction, then will get fistulogram Still has AVF issues with HD today Once hypotension is stabilized, will look into further evaluation of AVF issues Will need to arrange for outpatient HD in [place] Abdominal pain CT abd/pelvis showed a distal/terminal small bowel is decompressed. The upstream small bowel loops are distended and fluid-filled. Repeat KUB today showed no evidence of bowel distention. Surgery on board recommended to advance diet to soft food Denies any abdominal pain today Continue to advance diet as tolerated (4) Diabetes mellitus, type 2: Last A1c 5.7 on 12/15/2019 DM control On Tradjenta as outpatient Hold Tradjenta during hospital stay Continue NovoLog sliding scale per protocol (5) Hypertension: Hypotensive episode today Holding all antihypertensives (coreg, hydralazine, torsemide) for now Will reassess (6) PAD (peripheral artery disease): S/P stent to LLE in [place] by Dr. 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 No obvious bleed. ? loss in HD (8) BPH (benign prostatic hyperplasia): On Flomax and finasteride as outpatient (9) Tobacco abuse: Continues to smoke half a half a pack of cigarette Strongly encouraged smoking cessation Consider nicotine patch if needed (10) DVT prophylaxis: SQ Heparin CODE STATUS: Full code Discussed with patient Disposition: placement to rehab pending Patient will need arrangement for outpatient chronic dialysis Admission and Anticipated Discharge Date Admission Date: January 12, 2020 Subjective Patient seen and examined after returning from HD Was called by RN that patient was hypotensive after returning from HD. Line reported to have infiltrated after some minutes and HD discontinued. Patient denied any dizziness, shortness of breath, palpitations. Patient denied any other complaint Physical Exam Constitutional: + well hydrated; no acute distress Eyes: + anicteric sclerae and PERRL mild pallor ENMT: external ear and nose normal, oropharynx normal Respiratory: normal respiratory effort, lungs clear to auscultation Cardiovascular: RRR, no murmur, no edema Gastrointestinal (Abdomen): normal bowel sounds, soft, nontender, no hepatosplenomegaly Neurologic: PERRL, EOMI, accommodation nl, no face palsy, no dysarthria Psychiatric: A+Ox3, euthymic affect Results & Data ([facility]) Vital Signs (Past 12 Hours) Vital Signs Temp Pulse Pulse Pulse Resp BP BP 01/21/20 11:29 56 L 17 01/21/20 10:56 109/50 L 01/21/20 10:54 62/38 L 01/21/20 10:53 36.6 C 61 16 92/54 L 01/21/20 10:51 82/45 L 01/21/20 10:00 59 L 100/48 L 01/21/20 09:30 37 C 61 01/21/20 07:42 59 L 18 01/21/20 07:24 36.7 C 62 16 136/61 01/21/20 05:27 62 123/54 L 01/21/20 03:29 69 18 Pulse Ox 01/21/20 11:29 93 01/21/20 10:56 01/21/20 10:54 01/21/20 10:53 94 01/21/20 10:51 01/21/20 10:00 01/21/20 09:30 01/21/20 07:42 93 01/21/20 07:24 94 01/21/20 05:27 01/21/20 03:29 93 Laboratory Results Abnormal lab results 01/20/20 01/20/20 01/21/20 Range/Units 16:18 20:14 07:18 RBC 2.57 L (4.7-6.1) M/uL Hgb 7.5 L (14.0-18.0) g/dL Hct 24.1 L (42-52) % MCHC 31.1 L (32-36) g/dL MPV (7.4-10.4) fL Sodium (136-145) mmol/L Potassium (3.5-5.1) mmol/L BUN (7-18) mg/dl Creatinine (0.6-1.4) mg/dl Glucose (70-99) mg/dl POC Glucose 278 H 170 H (70-99) mg/dl Calcium (8.5-10.1) mg/dl 01/21/20 01/21/20 01/21/20 Range/Units 07:18 08:07 11:09 RBC 2.57 L (4.7-6.1) M/uL Hgb 7.6 L (14.0-18.0) g/dL Hct 23.9 L (42-52) % MCHC 31.8 L (32-36) g/dL MPV 10.6 H (7.4-10.4) fL Sodium 135 L (136-145) mmol/L Potassium 3.3 L (3.5-5.1) mmol/L BUN 61 H (7-18) mg/dl Creatinine 4.63 H* D (0.6-1.4) mg/dl Glucose 147 H (70-99) mg/dl POC Glucose 155 H (70-99) mg/dl Calcium 8.3 L (8.5-10.1) mg/dl (1) Hypertension Hypertension type: essential hypertension Qualified Code(s): I10 - Essential (primary) hypertension
[2020-01-21] MEDS: ASPIRIN 81 MG ECTAB PO SCH (12:01)
[2020-01-21] MEDS: CHOLECALCIFEROL 1,000 UNITS 25 MCG TAB PO SCH (12:01)
[2020-01-21] MEDS: PANTOprazole 40 MG TAB PO SCH ×2 (12:01→20:11)
[2020-01-21] MEDS: TRIAMCINOLONE ACET 0.1% CR 15 GM TUBE TOP SCH ×2 (12:07→20:14)
[2020-01-21] MEDS ORDERED: SODIUM CHLORIDE 0.9% 1000ML 500 ML IV ONE (16:37)
[2020-01-21] MEDS: ATORVASTATIN 40 MG TAB PO SCH (20:11)
[2020-01-21] MEDS: CITALOPRAM 40 MG TAB PO SCH (20:11)
[2020-01-21] MEDS: FINASTERIDE 5 MG TAB PO SCH (20:11)
[2020-01-21] MEDS: TAMSULOSIN HCL 0.4 MG CAP PO SCH (20:11)
[2020-01-21] MEDS: AMLODIPINE BESYLATE 5 MG TAB PO SCH (20:16)
[2020-01-22] MEDS: LEVALBUTEROL HCL 1.25 MG/3 ML NEB NEB SCH ×6 (02:05→23:17)
[2020-01-22 05:26] LABS: Hematocrit (blood only) 21.9 % (42-52); Hemoglobin 6.8 g/dL (14.0-18.0); Mean Corpuscular Hemoglobin 28.9 pg (25-34); Mean Corpuscular Hgb Conc 31.1 g/dL (32-36); Mean Corpuscular Volume 93.2 fL (80-100); Mean Platelet Volume 10.2 fL (7.4-10.4); Platelet Count 303 K/uL (130-400); RDW Coefficient of Variation 13.4 % (11.5-14.5); RDW Standard Deviation 45.4 fL (36.4-46.3); Red Blood Count 2.35 M/uL (4.7-6.1); White Blood Count 10.07 K/uL (4.8-10.8)
[2020-01-22 06:02] LABS: BUN Creatinine Ratio 13.6 (10-20); Creatinine Clr Calc Pharmacy 11.9 ml/min; Est GFR (Non-African American) 10.4
[2020-01-22] MEDS: HEPARIN SOD 5,000 UNIT/0.5 ML VIAL SQ SCH ×3 (06:25→21:31)
[2020-01-22] MEDS ORDERED: SODIUM CHLORIDE 0.9% 1000ML 1,000 ML IV PRN (07:40)
[2020-01-22] MEDS ORDERED: EPOETIN ALFA 20,000 UNITS/ML VIAL IV ONE (07:40)
[2020-01-22] MEDS ORDERED: IRON SUCROSE 100 MG in SYRINGE 0 ML IV ONE (08:15)
[2020-01-22] MEDS: carvediloL 6.25 MG TAB PO SCH ×2 (08:29→16:29)
[2020-01-22] MEDS: FLUTICASONE/VILANTEROL 200/25MCG 14 PUFFS/INHALER INH SCH (08:30)
[2020-01-22] MEDS: TORSEMIDE 20 MG TAB PO SCH ×2 (08:30→10:02)
[2020-01-22] MEDS: UMECLIDINIUM BROMIDE 62.5MCG/BLISTER 7 PUFFS/INHALER INH SCH (08:31)
[2020-01-22] MEDS: ASPIRIN 81 MG ECTAB PO SCH (08:33)
[2020-01-22] MEDS: PANTOprazole 40 MG TAB PO SCH ×2 (08:33→21:30)
[2020-01-22] MEDS: TRIAMCINOLONE ACET 0.1% CR 15 GM TUBE TOP SCH ×2 (08:34→21:27)
[2020-01-22] MEDS: CHOLECALCIFEROL 1,000 UNITS 25 MCG TAB PO SCH (08:34)
[2020-01-22] MEDS: INSULIN GLARGINE SOLOSTAR 100 UNITS/ML 3 ML PEN SC SCH ×2 (08:35→21:27)
[2020-01-22] MEDS: INSULIN ASPART 100 UNITS/ML 3 ML PEN SC SCH ×4 (08:40→21:29)
[2020-01-22] MEDS ORDERED: LIDOCAINE/PRILOCAINE 2.5% EA CRM EXT STA (08:44)
[2020-01-22] MEDS ORDERED: LIDOCAINE/PRILOCAINE 2.5% EA CRM EXT PRN (08:45)
[2020-01-22] MEDS ORDERED: SODIUM CHLORIDE 0.9% 250 ML IV PRN (08:57)
[2020-01-22 09:26] LABS: Hematocrit (blood only) 21.7 % (42-52); Hemoglobin 6.9 g/dL (14.0-18.0)
[2020-01-22] MEDS ORDERED: EPOETIN ALFA 24,000 UNITS in SYRINGE 0 ML IV SCH (10:00)
--- NOTE | 2020-01-22 11:30 | Hospitalist Progress Note ---
Date of Service January 22, 2020 Assessment & Plan (1) Acute respiratory failure with hypoxia: (2) CHF (congestive heart failure): Presented with volume overload hypoxia respiratory distress bilateral pulmonary congestion secondary to worsening of renal failure leading to fluid retention Due to combination of volume overload/secondary to renal failure, leading to decompensated CHF with diastolic dysfunction CXR showed cardiomegaly with worsening volume overload and congestive change. ProBNP above 4000's Recent echocardiogram shows diastolic CHF with normal ejection fraction/HFp EF Cardiology on board Fluid management as per Nephro Lasix drip discontinued and started on Torsemide 100mg daily due to low BP torsemide decreased to 40mg daily Hypotensive episodes yesterday due to blood loss in HD machine Continue to hold antihypertensives Give 1 PRBC Continue torsemide Will get PRBC with HD today Has been weaned off oxygen Spoke with Dr Duncan yesterday about the access issues. He reported that the AVF is fine. That it should be used for HD and patient can follow up with vascular outpatient if needed after discharge Possible Pneumonia CXR showed Progressive bilateral pulmonary airspace opacities. Continue Cefdinir 300mg q48h, renally dosed Continue to monitor COPD exacerbation, Possibly due to volume overload Was on 4 L oxygen SPO2 98% Initially required BiPAP treatment, Off BiPAP now on 4 L oxygen via nasal cannula Received Solu-Medrol 125 mg x 1, then started was started on Prednisone, became confused and steroid was discontinued Now weaned off oxygen Clinically improved Continue inhalers (3) CKD (chronic kidney disease) stage 5, GFR less than 15 ml/min: Baseline creatinine 3.9-4.0 Acute worsening of chronic kidney disease now stage V, BUN/creatinine 74 and 4.99 Now ESRD on HD Nephrology on board Cannulation to fistula was not successful initially Ultrasound of fistula showed Patent arteriovenous fistula of the left upper extremity. Dr Sharma discussed case with Dr. Duncan who recommended to use the fistula since USS showed patent then if malfunction, then will get fistulogram Spoke with Dr Duncan yesterday about the access issues. He reported that the AVF is fine. That it should be used for HD and patient can follow up with vascular outpatient if needed after discharge Will need to arrange for outpatient HD in [place] Abdominal pain CT abd/pelvis showed a distal/terminal small bowel is decompressed. The upstream small bowel loops are distended and fluid-filled. Repeat KUB showed no evidence of bowel distention. Likely ileus Surgery on board recommended to advance diet to soft food Denies any abdominal pain today Tolerating diet well (4) Diabetes mellitus, type 2: Last A1c 5.7 on 12/15/2019 DM control On Tradjenta as outpatient Hold Tradjenta during hospital stay Continue NovoLog sliding scale per protocol (5) Hypertension: As above Continue to hold antihypertensive for now Continue torsemide (6) PAD (peripheral artery disease): S/P stent to LLE in [place] by Dr. 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 Possible Discharge tomorrow Patient will need arrangement for outpatient chronic dialysis Admission and Anticipated Discharge Date Admission Date: January 12, 2020 Subjective Patient seen in HD today Reports only cough, occasionally productive with occasional shortness of breath Denied any dizziness, palpitations, chest pain Denied any other symptoms Was hypotensive yesterday after line infiltrated within minutes of starting HD Hb this Am is 6.8, likely from blood loss in HD machine yesterday Physical Exam Constitutional: + well hydrated; no acute distress Eyes: + anicteric sclerae; no scleral abnormality Moderate pallor ENMT: external ear and nose normal, oropharynx normal Respiratory: normal respiratory effort; no respiratory distress Basilar crackles Cardiovascular: RRR, no murmur, no edema Gastrointestinal (Abdomen): normal bowel sounds, soft, nontender, no hepatosplenomegaly Neurologic: PERRL, EOMI, accommodation nl, no face palsy, no dysarthria Psychiatric: A+Ox3, euthymic affect Results & Data ([facility]) Vital Signs (Past 12 Hours) Vital Signs Temp Pulse Pulse Resp BP BP Pulse Ox 01/22/20 11:00 36.6 C 56 L 18 116/54 L 01/22/20 07:10 36.7 C 58 L 16 115/61 97 01/22/20 02:07 60 16 96 Laboratory Results Short CBC 01/22/20 01/22/20 Range/Units 04:42 09:15 WBC 10.07 (4.8-10.8) K/uL Hgb 6.8 L* 6.9 L* (14.0-18.0) g/dL Hct 21.9 L 21.7 L (42-52) % Plt Count 303 (130-400) K/uL BMP 01/22/20 04:42 Sodium 136 Potassium 3.0 L Chloride 101 Carbon Dioxide 26 BUN 69 H Creatinine 5.01 H* D Glucose 77 Calcium 8.0 L (1) Hypertension Hypertension type: essential hypertension Qualified Code(s): I10 - Essential (primary) hypertension
--- NOTE | 2020-01-22 20:57 | Nephrology Progress Note ---
Date of Service January 22, 2020 Assessment & Plan (1) CKD (chronic kidney disease) stage 5, GFR less than 15 ml/min: Patient with CKD 5 not on dialysis at admission but now with ESRD. He has had progressively worsened renal function and recurrent volume overload he was started on hemodialysis due to hyper kalemia, acidemia, uremia, volume overload. Today he was to rest but had issues w/ avf yesterday, now needs blood and is already pre transfusio overloaded. Plan next dialysis January 23 needs to be set up for [facility] [place] [facility] [facility] Cannulating AV fistula has been challenging>> he may need further evaluation with [facility] vascular after discharge. Daughter aware. ultrasound of access this admission and vascular evaluation by [facility] vascular reassuring; cannulated successfully now x 3 txs. ran well but slowly today; yesterday infiltrated quickly. >>tolerated only 400 mL fluid removal today For tomorrow will lower torsemide to 40 mg daily and follow volume status Continue strict I's and O's and fluid restriction, dialysis diet (2) Chronic anemia: Hemoglobin in the eights and sevens initially. Improving with fluid removal on dialysis; then dropped after avf infiltrated; no other reports of bleeding Iron studies 01/18 w/ t stn 9% >started 100 mg venofer IV q HD tx 01/18 -epo w/ hd -folllow hgb daily (3) Hypertension: at goal; cont current meds Admission and Anticipated Discharge Date Admission Date: January 12, 2020 Subjective avf clotted off after only a few min yesterday >> blood could not be rinsed back and today hgb lower > for 1 unit pRBC; feels a bit better; eating; denies sob edema chest pain rash Review of Systems Review of Systems: All systems reviewed & are unremarkable except as noted in HPI & below Physical Exam Constitutional: well developed, well nourished and + thin; no acute distress sitting in bed on RA Eyes: EOM intact bilaterally ENMT: Ears: no external ear abnormality Nose: no external nose abnormality Mouth: + dry oral mucous membranes Neck: no nuchal rigidity Respiratory: normal respiratory effort; no labored breathing Auscultation: + diminished lung sounds, + crackles and + wheezes Cardiovascular: RRR, no murmur, no edema Extremities: + AV fistula Gastrointestinal (Abdomen): Inspection/Auscultation: normal bowel sounds Percussion/Palpation: abdomen soft; abdomen nontender Musculoskeletal: Extremities: strength 5/5 throughout Skin: no rashes, warm and dry Neurologic: albarran, fluent speech, not remor Psychiatric: Orientation: alert, oriented to person and oriented to place Affect: + blunted affect Results & Data ([place]) Vital Signs (Past 12 Hours) Vital Signs Temp Pulse Pulse Pulse Pulse Resp BP 01/22/20 19:14 63 16 01/22/20 15:25 36.6 C 68 01/22/20 15:23 36.5 C 64 18 01/22/20 14:40 64 104/55 L 01/22/20 14:20 63 112/61 01/22/20 14:00 60 114/54 L 01/22/20 13:40 61 90/41 L 01/22/20 13:20 59 L 111/50 L 01/22/20 13:00 57 L 104/49 L 01/22/20 12:40 58 L 100/46 L 01/22/20 12:20 60 107/45 L 01/22/20 12:00 58 L 105/48 L 01/22/20 11:40 57 L 113/51 L 01/22/20 11:20 36.6 C 58 L 18 110/49 L 01/22/20 11:00 36.6 C 56 L 18 116/54 L 01/22/20 10:45 36.6 C 59 L 60 BP Pulse Ox 01/22/20 19:14 96 01/22/20 15:25 125/63 01/22/20 15:23 138/80 97 01/22/20 14:40 01/22/20 14:20 01/22/20 14:00 01/22/20 13:40 01/22/20 13:20 01/22/20 13:00 01/22/20 12:40 01/22/20 12:20 01/22/20 12:00 01/22/20 11:40 01/22/20 11:20 01/22/20 11:00 01/22/20 10:45 Laboratory Results 01/22/20 09:15 01/22/20 04:42 (1) Hypertension Hypertension type: essential hypertension Qualified Code(s): I10 - Essential (primary) hypertension
[2020-01-22] MEDS: TAMSULOSIN HCL 0.4 MG CAP PO SCH (21:26)
[2020-01-22] MEDS: CITALOPRAM 40 MG TAB PO SCH (21:26)
[2020-01-22] MEDS: CEFDINIR 300 MG CAP PO SCH (21:26)
[2020-01-22] MEDS: ATORVASTATIN 40 MG TAB PO SCH (21:27)
[2020-01-22] MEDS: FINASTERIDE 5 MG TAB PO SCH (21:30)
[2020-01-23] MEDS: LEVALBUTEROL HCL 1.25 MG/3 ML NEB NEB SCH ×3 (03:03→10:56)
[2020-01-23] MEDS: HEPARIN SOD 5,000 UNIT/0.5 ML VIAL SQ SCH (05:42)
[2020-01-23 06:12] LABS: Hematocrit (blood only) 27.3 % (42-52); Hemoglobin 8.6 g/dL (14.0-18.0); Mean Corpuscular Hemoglobin 29.5 pg (25-34); Mean Corpuscular Hgb Conc 31.5 g/dL (32-36); Mean Corpuscular Volume 93.5 fL (80-100); Mean Platelet Volume 10.1 fL (7.4-10.4); Platelet Count 319 K/uL (130-400); RDW Standard Deviation 47.6 fL (36.4-46.3); Red Blood Count 2.92 M/uL (4.7-6.1); White Blood Count 12.19 K/uL (4.8-10.8)
[2020-01-23 06:57] LABS: BUN Creatinine Ratio 10.4 (10-20); Calcium 8.1 mg/dl (8.5-10.1); Creatinine Clr Calc Pharmacy 15.4 ml/min; Est GFR (Non-African American) 14.7; Potassium 3.5 mmol/L (3.5-5.1)
--- NOTE | 2020-01-23 07:23 | Nephrology Progress Note ---
Date of Service January 23, 2020 Assessment & Plan (1) CKD (chronic kidney disease) stage 5, GFR less than 15 ml/min: Patient with CKD 5 not on dialysis at admission but now with ESRD. He has had progressively worsened renal function and recurrent volume overload he was started on hemodialysis due to hyper kalemia, acidemia, uremia, volume overload. yesterday had dialysis uneventfully w/ 2L UF Plan next dialysis January 23 now set up for in center hemodialysis at [facility] >> [facility] [place] [facility] for [facility] Cannulating AV fistula has been challenging; did have issues yesterday but ultimately ran ok >> he may need further evaluation with [facility] vascular after discharge. Daughter aware. ultrasound of access this admission and vascular evaluation by [facility] vascular reassuring; cannulated successfully now x 4 txs. ran well but slowly yesterday. continue torsemide to 40 mg daily and follow volume status Continue strict I's and O's and fluid restriction, dialysis diet (2) Chronic anemia: Hemoglobin in the eights and sevens initially. Improving with fluid removal on dialysis; then dropped after avf infiltrated; no other reports of bleeding Iron studies 01/18 w/ t stn 9% >started 100 mg venofer IV q HD tx 01/18 -epo w/ hd -folllow hgb daily 8.6 today (3) Hypertension: at goal; cont current meds Admission and Anticipated Discharge Date Admission Date: January 12, 2020 Subjective tolerated hd yesterday w/ 2L uf and 1 unit pRBC; cannulation was challenging yesterday but ran at low pump speed successfully. no sob today uneventful night still no evidence of bleeding no pain slept well no n/v no edema or palpitations Review of Systems Review of Systems: All systems reviewed & are unremarkable except as noted in HPI & below Physical Exam Constitutional: well developed, well nourished and + thin; no acute distress lying in bed dry cough ra Eyes: EOM intact bilaterally ENMT: Ears: no external ear abnormality Nose: no external nose abnormality Mouth: + dry oral mucous membranes Neck: no nuchal rigidity Respiratory: normal respiratory effort; no labored breathing Auscultation: + diminished lung sounds and + crackles (bibasilar); no wheezes Cardiovascular: Rate/Rhythm: regular rate and regular rhythm Heart Sounds: + murmur Extremities: + AV fistula; no edema Gastrointestinal (Abdomen): Inspection/Auscultation: normal bowel sounds Percussion/Palpation: abdomen soft; abdomen nontender Musculoskeletal: Extremities: strength 5/5 throughout Skin: no rashes, warm and dry Psychiatric: Orientation: alert, oriented to person and oriented to place Speech: normal rate/rhythm/volume of speech Affect: + blunted affect Results & Data ([facility]) Vital Signs (Past 12 Hours) Vital Signs Temp Pulse Resp BP Pulse Ox 01/23/20 07:10 59 L 16 95 01/23/20 03:03 58 L 16 94 01/22/20 23:17 62 16 96 01/22/20 23:11 37.3 C 64 20 118/66 96 Laboratory Results 01/23/20 05:56 01/23/20 05:56 (1) Hypertension Hypertension type: essential hypertension Qualified Code(s): I10 - Essential (primary) hypertension
[2020-01-23] MEDS: FLUTICASONE/VILANTEROL 200/25MCG 14 PUFFS/INHALER INH SCH (08:48)
[2020-01-23] MEDS: UMECLIDINIUM BROMIDE 62.5MCG/BLISTER 7 PUFFS/INHALER INH SCH (08:48)
[2020-01-23] MEDS: PANTOprazole 40 MG TAB PO SCH (08:50)
[2020-01-23] MEDS: TORSEMIDE 20 MG TAB PO SCH (08:50)
[2020-01-23] MEDS: ASPIRIN 81 MG ECTAB PO SCH (08:50)
[2020-01-23] MEDS: CHOLECALCIFEROL 1,000 UNITS 25 MCG TAB PO SCH (08:50)
[2020-01-23] MEDS: INSULIN GLARGINE SOLOSTAR 100 UNITS/ML 3 ML PEN SC SCH (08:52)
[2020-01-23] MEDS: TRIAMCINOLONE ACET 0.1% CR 15 GM TUBE TOP SCH (08:52)
[2020-01-23] MEDS: INSULIN ASPART 100 UNITS/ML 3 ML PEN SC SCH ×2 (08:54→12:26)
--- NOTE | 2020-01-23 11:22 | Discharge Summary ---
Date of Service January 23, 2020 Admission HPI Per Admitting Provider This is a chronically ill 74-year-old male who has significant PMH of T2DM, CKD stage V with mature AV fistula currently not on hemodialysis, HTN, HLD, COPD, anemia of chronic disease, PAD status post stent, tobacco abuse, gastritis, AVM with clip, depression who presents to ED secondary to epigastric pain and shortness of breath since 3 AM. He awoke at approximately 3 AM with severe stabbing abdominal pain that radiated to the left side of his abdomen that lasted for approximately 15 minutes. This resolved on its own and was associated with shortness of breath, nausea and feeling feverish. He called his daughter stating, "I cannot I cannot." According to the daughter he finally elicited that he was having trouble breathing and therefore he called EMS. Of significance he was recently hospitalized on 01/06/2020 to 01/08/2020 secondary to chest pain. He was seen and evaluated by cardiology and underwent nuclear stress echo. Stress test was negative for inducible ischemia, resting echo revealed EF 60-65%, grade 3 diastolic dysfunction, moderate aortic stenosis without aortic regurg, mild left atrial enlargement. His symptoms improved and he was discharged home in stable condition. He states his baseline weight is approximately 170 but has not weighed himself since discharge. This morning when he woke up he felt very feverish. He denies any coughing, lightheadedness, dizziness, headache, chest pain, palpitations, emesis, diarrhea, dysuria, increased urgency or frequency with urination, hematuria, melena, hematochezia. His last BM was prior to arrival and normal for him. Despite having CKD stage V he feels he is urinating normally and this is unchanged. His appetite is stable for him. He has been taking his medications as prescribed, but did not take them this morning. Also of significance patient recently underwent endoscopic evaluation by GI on 12/29/2019 which revealed erosive gastritis/duodenitis with a nonbleeding AVM which required endovascular clipping. In ED patient was hypoxic on arrival saturating in the low 80s. He required O2 supplementation. He was tachypneic but otherwise hemodynamically stable. Notable lab work abnormalities include leukocytosis 13.8 6K, H&H 8.4 and 27.4, platelet 237, sodium 138, K5.2, CO2 16, BUN 74, creatinine 4.99, glucose 151, proBNP 4720, influenza A negative. Chest x-ray revealed cardiomegaly with pulmonary edema and congestive changes compared to prior chest x-ray on 01/05. Also small bilateral pleural effusions are new. EKG revealed normal sinus rhythm with a rate of 79 bpm with bifascicular block. In ED he received albuterol and GI cocktail with minimal improvement. Admission Exam Per Admitting Provider Constitutional: Chronically ill-appearing male, WD/WN, vitals as above, tachypnea, sitting up in bed, answers questions appropriately Head: Normocephalic, Atraumatic Eyes: PERRL, conjunctivae normal, anicteric sclerae ENMT: external ear and nose normal, oropharynx normal with dry mucous membranes Neck: trachea midline, no thyromegaly normal visual inspection Respiratory: Tachypneic, lungs clear to auscultation with bibasilar crackles and rhonchi left greater than right, no wheeze. No accessory muscle use Cardiovascular: RRR, 2/6 LUI noted throughout precordium best RUSB, no peripheral edema, left upper extremity AV fistula vessels: no JVD or carotid bruit Chest: normal inspection of chest Abdomen: Protuberant abdomen, normal bowel sounds, soft, nontender, no hepatosplenomegaly Musculoskeletal: no cyanosis or clubbing, extremities motor strength 5/5 Skin: no rashes, warm and dry mild turgor Neurologic: PERRL, EOMI, accommodation nl, no face palsy, no dysarthria CN's II-XI intact bilaterally and moves all extremities Psychiatric: A+Ox3, euthymic affect Lymphatic: no cervical or axillary lymphadenopathy : deferred Principal Diagnosis Acute respiratory failure with hypoxia Congestive heart failure (Diastolic heart failure) Pneumonia End stage kidney disease now on Hemodialysis Discharge Exam Constitutional + well hydrated; no acute distress Eyes PERRL, conjunctivae normal, anicteric sclerae ENMT external ear and nose normal, oropharynx normal Respiratory normal respiratory effort; no respiratory distress On room air, Diminished basal lung sounds, mild basal crackles Cardiovascular Rate/Rhythm: regular rate and regular rhythm Extremities: no edema Gastrointestinal (Abdomen) normal bowel sounds, soft, nontender, no hepatosplenomegaly Neurologic PERRL, EOMI, accommodation nl, no face palsy, no dysarthria Psychiatric A+Ox3, euthymic affect Discharge Data Allergies Allergy/AdvReac Type Severity Reaction Status Date / Time No Known Allergies Allergy Verified 01/12/20 08:02 Consultations 01/12/20 09:24 ED Decision to Admit Stat 01/12/20 10:54 Consult Cardiology Routine Consult Case Management - Discharge Planning Routine Consult Nephrology Routine 01/12/20 16:17 Consult Vascular Surgery Routine 01/13/20 10:34 Consult General Surgery Routine Ordered Studies 01/12/20 16:40 US hemodialysis access Urgent 01/13/20 10:00 CT abd pelvis wo con Routine FINDINGS: Lung bases: The heart is markedly enlarged and without pericardial effusion. The coronary arteries are densely calcified. There is diminished attenuation of the cardiac blood pool as compared to the myocardium suggesting anemia. A small hiatal hernia is noted. There are small to moderate pleural effusions with bibasilar atelectasis. Intralobular septal thickening is suggested at the lung bases. Liver: The unenhanced liver is normal in size, contour, and attenuation. There is mild intrahepatic biliary ductal dilatation. Gallbladder: Surgically absent noting clips in the gallbladder fossa. Spleen: Normal in size and attenuation. Pancreas: The unenhanced pancreas is moderately atrophic and grossly unremarkable. Adrenal glands: Nodular thickening of the adrenal glands is similar to previous. Kidneys: There is marked and asymmetric cortical atrophy of the right kidney as compared to the left. There are no renal calculi identified. Bilateral renal cysts measure up to 2.0 cm. Scattered subcentimeter complex/hyperdense cysts are noted. Abdominal vasculature: There is advanced atherosclerotic calcification and ectasia of the abdominal aorta. 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 Bowel: There are distended, fluid-filled, and fecalized loops of small bowel in the pelvis which measure up to 3.6 cm in diameter. The distal small bowel is decompressed, and the appearance suggests bowel obstruction. A discrete transition point is not identified. There is no pneumatosis intestinalis or portal venous gas. No focally thick walled bowel loops are identified. There are scattered colonic diverticula without CT evidence of acute diverticulitis. The appendix is normal as visualized. Metallic foreign bodies are noted in the cecum. Peritoneum: There is no intraperitoneal free air. Trace free fluid is noted in the pelvis. There is a fat-containing umbilical hernia. Lymphadenopathy: None. Pelvic viscera: The bladder is partially decompressed around a Gamble catheter. Foci of intraluminal gas are likely related to instrumentation. The prostate gland is mildly enlarged and heterogeneous. The bladder wall is mildly thickened and trabeculated. Skeletal structures: The skeletal structures are osteopenic. There is mild to moderate lumbosacral spondylosis. No lytic or blastic lesions are seen. IMPRESSION: 1. Suboptimal examination without oral and IV contrast. The examination is also compromised by motion artifact. 2. The distal/terminal small bowel is decompressed. The upstream small bowel loops are distended and fluid-filled, and the appearance is consistent with a small bowel obstruction. A discrete transition point is not identified. 3. No focally thick walled bowel loops are identified. There is no pneumatosis intestinalis, portal venous gas, or intraperitoneal free air. 4. Trace free fluid is noted in the pelvis. 5. Cardiomegaly with evidence of congestive failure. 6. There are small to moderate pleural effusions with bibasilar atelectasis. 7. Additional findings as above. Hospital Course (1) Acute respiratory failure with hypoxia: (2) CHF (congestive heart failure): Presented with volume overload hypoxia respiratory distress bilateral pulmonary congestion secondary to worsening of renal failure leading to fluid retention Due to combination of volume overload/secondary to renal failure, leading to decompensated CHF with diastolic dysfunction CXR showed cardiomegaly with worsening volume overload and congestive change. ProBNP above 4000's Recent echocardiogram shows diastolic CHF with normal ejection fraction/HFp EF Cardiology evaluated patient Fluid management as per Nephro Initially required Lasix drip which was later discontinued and started on Torsemide 100mg daily Due to low BP torsemide decreased to 40mg daily Patient had issues with AVF HD access site, USS showed it was patent Patient required 1 PRBC after interrupted HD session due to line infiltration and blood lost in machine Patient's blood pressure has been normal but orthostatic vitals positive for orthostatic hypotension though asymptomatic All antihypertensives are currently discontinued for now Successfully weaned off oxygen Possible Pneumonia CXR showed Progressive bilateral pulmonary airspace opacities. Completed antibiotics course with cefdinir COPD exacerbation, Initially required BiPAP treatment, Off BiPAP, transitioned to 4 L oxygen via nasal cannula Received Solu-Medrol 125 mg x 1, then started was started on Prednisone, became confused and steroid was discontinued Now weaned off oxygen. Doing well on room air Continue inhalers (3) CKD (chronic kidney disease) stage 5, GFR less than 15 ml/min: Baseline creatinine 3.9-4.0 Acute worsening of chronic kidney disease now stage V, BUN/creatinine 74 and 4.99 Now ESRD on HD Nephrology on board Cannulation to fistula was not successful initially Ultrasound of fistula showed Patent arteriovenous fistula of the left upper extremity. Dr Sharma discussed case with Dr. Duncan who recommended to use the fistula since USS showed patent then if malfunction, then will get fistulogram Spoke with Dr Duncan prior to discharge about the access issues. He reported that the AVF is fine. That it should be used for HD and patient can follow up with vascular outpatient if needed after discharge Patient has successfully had HD via AVF a couple of times in the hospital Will continue HD at [facility] rehab CM already arranged outpatient HD after rehab for TTS Patient will follow up with nephrology Abdominal pain CT abd/pelvis showed a distal/terminal small bowel is decompressed. The upstream small bowel loops are distended and fluid-filled. Repeat KUB showed no evidence of bowel distention. Likely ileus This has resolved (4) Diabetes mellitus, type 2: Last A1c 5.7 on 12/15/2019 DM control Continue home med tradjenta (5) Hypertension: As above Continue to hold antihypertensive for now Continue torsemide (6) PAD (peripheral artery disease): S/P stent to LLE in [place] by Dr. 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 No evidence of GI bleed Baseline hemoglobin between 8 and 9 Had acute on chronic anemia after HD interrupted due to infiltrated line Likely due to loss in HD machine yesterday Got 1 PRBC with HD yesterday Hb stable at 8.6 today (8) BPH (benign prostatic hyperplasia): On Flomax and finasteride as outpatient (9) Tobacco abuse: Continues to smoke half a half a pack of cigarette Strongly encouraged smoking cessation Consider nicotine patch if needed Total Time Total Time Spent Total Time Spent (In Minutes): 50 Total Time Includes: Examination of the Patient, Discharge Planning, Medication Reconciliation and Communication With Other Providers Discharge Plan Discharge Items Patient Disposition: Transfer Inpatient Rehab Fac Reason For Visit: SHORTNESS OF BREATH Discharge Diagnosis: Acute respiratory failure with hypoxia Congestive heart failure Pneumonia End stage kidney disease now on Hemodialysis Activity: As commented below Activity Comment: Per physical therapist recommendations Non-emergency contact: Primary Care Provider and Structural Ironworker Call non-emergency contact if: you have any medication questions and your symptoms worsen Follow-up/Referrals: Laron Peña MD [Primary Care Provider] - Diet: Dialysis Renal Fluids: 1500ml (6 cups) Diet Texture: Easy to Chew Addtl Attending Provider Instructions: Mr Villalobos. You came to the hospital with shortness of breath and cough. You were evaluated and managed for the diagnoses listed above. You were comanaged with the Structural Ironworker, [employer], Surgeon. You were started on hemodialysis due to worsening kidney function. Your dialysis fistula had some issues initially but ultrasound scan showed it was patent. You have successfully been able to get dialysis multiple time through the fistula. It is important that you follow up with Vascular surgeons outpatient in a couple of weeks to reevaluate that. You completed antibiotics for pneumonia. Your blood pressure medications (carvedilol, amlodipine and hydralazine) are discontinued at this time due to drop in blood pressure on standing. Please follow up with your Primary doctor and second hand paper machine for continued management. Please adhere to our discussion regarding food and fluid intake. Continue to take the diuretic as recommended. You will continue Hemodialysis at the rehab and also after you leave rehab center. Please follow up with nephrology. It was a pleasure taking care of you. Pending Studies at Discharge: No Stand-Alone Forms: My [facility] Skilled Items Patient informed of condition?: Yes DNR: No Discharge Level of Care: Acute rehab Communicable Disease: No Discharge Prognosis: Stable Lines: None Urinary Catheter: No Medications and DC Order Prescriptions: New acetaminophen [Mapap (acetaminophen)] 325 mg Tablet 650 mg PO Q4H PRN (Reason: pain) Qty: 50 RF: 0 torsemide 20 mg Tablet 40 mg PO QAM 30 Days Qty: 60 RF: 0 polyethylene glycol 3350 [Miralax] 17 gram Powder In Packet 17 g PO DAILY PRN (Reason: constipation) Qty: 10 RF: 0 Breo Ellipta 200-25 mcg/dose Blister With Device 1 puff inhalation DAILY Qty: 3 RF: 0 Continued atorvastatin 40 mg Tablet 40 mg PO QPM RF: 0 citalopram 40 mg Tablet 40 mg PO QPM RF: 0 tamsulosin 0.4 mg Capsule 0.4 mg PO HS RF: 0 dicyclomine 10 mg Capsule 10 mg PO TID RF: 0 finasteride 5 mg Tablet 5 mg PO HS RF: 0 cholecalciferol (vitamin D3) [Vitamin D3] 1,000 unit (25 mcg) Tablet 1,000 unit PO QAM RF: 0 Tradjenta 5 mg Tablet 5 mg PO QAM RF: 0 albuterol sulfate 90 mcg/actuation HFA aerosol inhaler 2 puff inhalation Q6H PRN (Reason: Shortness Of Breath Or Wheezing) RF: 0 loratadine 10 mg tablet 10 mg PO DAILY PRN (Reason: Itching) RF: 0 aspirin 81 mg Tablet,Delayed Release (Dr/Ec) 81 mg PO QAM RF: 0 pantoprazole 40 mg tablet,delayed release (DR/EC) 40 mg PO QAM RF: 0 Benadryl Extra Strength 2-0.1 % cream 1 appln TOP TID PRN (Reason: itching) Qty: 28.3 RF: 0 Discontinued carvedilol 12.5 mg Tablet 12.5 mg PO BIDM RF: 0 hydralazine 25 mg Tablet 75 mg PO BID RF: 0 amlodipine 10 mg Tablet 10 mg PO HS Qty: 30 RF: 0 triamcinolone acetonide 0.1 % cream 1 appln TOP BID Qty: 15 RF: 2 Discharge Orders: Discharge Order (Routine); Ordered 01/23/20 Ordered By: Doreen Gustafson/Other Patient Handouts: Dialysis Arteriovenous Fistula, DVT Prevention, Hemodialysis Admission Data Admit Date/Time: 01/12/20 10:00 Attending Provider: Doreen Grey I. Admit Provider: Rosa Whitehead Primary Care Provider: Laron Peña Other Providers: [facility] ; [facility] ; Rosa Whitehead ; Orion Duarte ; Dontrell Salvador ; Matt Zamorano ; Raheem Jerez ; Mikhail Gonzalez ; Sher Poon ; Mary Rios ; Lori Herron ; Dipesh Munoz ; Helen Horta ; Pro Ortiz ; Juliette Rodríguez ; Radha Ware ; Leandra Candelaria ; Timoteo Duncan ; Sher Courtney ; Liseth Rasheed ; Raheem Mendez ; Ruby Schwartz ; Frandy Russell ; Mikhail Higginbotham ; Zulma Rooney ; Lito Parkinson ; Krystina Euceda ; Ronnell Mata Jr ; Tommy Prieto ; Isaura Schwartz ; Ramses Sharma Other Interventions: Discharge Summary Assessment (RN) Last Done: 01/23/20 11:33 DC Date/Time DO NOT enter until pt leaves facility: 01/23/20 13:24
== END 2020-01-23 13:24 | DRG 291 ==
LOC: ED 07:12 → SUATTDRO 10:00 → 2S 10:00 → 3W 01-20 19:15

== ENCOUNTER 2022-03-12 09:24 | Inpatient (IN) ==
[2022-03-12] MEDS ORDERED: SODIUM CHLORIDE 0.9% 1000ML 500 ML IV ONE ×2 (09:41→10:46)
[2022-03-12] MEDS ORDERED: MoRPHine SULFATE 4 MG/ML 1 ML CARP\\VIAL IV STA (09:41)
--- NOTE | 2022-03-12 09:47 | Emergency Department Note ---
Impression & Plan Small bowel obstruction, Lactic acidosis, Leukocytosis, ESRD on peritoneal dialysis ED Provider Note Name: FERNANDA FLORES Age: 77 Sex: M Arrives Via: Walk-In Informant: Patient, Daughter ED Provider: Eber Yo MD Chief Complaint: Abdominal pain Impression: As per impressions above Medical Decision Makin-year-old gentleman arrives for evaluation of acute abdominal pain. He has end-stage renal disease on peritoneal dialysis, CHF, CAD, hyperlipidemia, hypertension, gastritis, type 2 diabetes amongst multiple other medical comorbidities. Patient is in significant distress on arrival with significant tenderness palpation of her epigastrium. IV established and given findings and report of fevers cultures and lactate were also sent. I did obtain a culture from the peritoneal dialysate as well. Patient was given morphine IV with significant improvement in his pain. He was sent to the CT for evaluation which shows concerns for small bowel obstruction. Lactic acid returned elevated as did white blood cell count. He was resuscitated with 30/kg of IV fluids. He tolerated this well. White blood cell count is elevated as well. He is treated empirically as septic shock. However given my concerns for small bowel obstruction I consulted general surgery. They requested medicine be involved as well. After general surgery evaluation they requested that a CT angiogram of the abdomen be done. I did discuss this with the patient and his daughter and the risks of worsening kidney function and they understand the risks and benefits. CT angiogram reveals no evidence of embolism and no occlusion of the SMA or celiac artery at this time. There is some occlusion of the inferior mesenteric artery but there is reconstituted flow on the other side. This was reviewed with general surgery and vascular. Vascular surgeon does not feel this is vascular intervention case at this time. General surgery was made aware of findings as well as my concern that there is ischemia based on lactic acidosis and the concerning findings on the CT. Throughout this patient was quite comfortable not requiring any other morphine than the initial dose when he got here. Blood pressure and vitals remained relatively stable. General surgery and back down to evaluate patient and requests NG tube and hospitalization. I touched base with the hospitalist to make them aware of these findings and the plan and he is on board with this as well. Family was made aware of multiple times of where were out and plan of care. I will note that repeat volume status exam following fluid resuscitation reveals patient with stable vitals feeling much better and normal blood pressure thus further fluids not indicated. Prior Medical Record and Triage/Nursing Notes reviewed by Me Additional history obtained from chart and daughter Differentials:Appendicitis, infections, diverticulitis, UTI, obstruction, mesenteric ischemia, aortic pathology, inflammatory bowel disease, renal colic, PUD, pancreatitis, biliary pathology, hernia, volvulus, constipation, as well as other pathologies. Vital Signs: reviewed and remarkable for no significant abnormalities Interventions: Saline bolus 2.5 L IV, morphine IV, Zofran IV, Zosyn IV, Vanco IV Labs:Reviewed and remarkable for elevated lactate, elevated wbc, elevated Cr Imaging:See radiologist reads below. Chest x-ray, KUB, CT A/P without contrast, CT angio of abdomen pelvis EKG:Per My Interpretation: Indication Abdominal pain/sepsis: NSR 81 bpm, qtc 543 with PACs, Bifascicular block. No Ischemia. Compared to EKG 02/01/22, no significant changes. Cardiac/Tele Monitoring: Cardiac Monitoring: An Order was placed for continuous cardiac monitoring. The monitor shows a rate of 80 with a normal sinus rhythm. Consults:Dr Prieto Gen Surg, Dr Stoney Hernandez hospitalist, Dr Duncan Vascular surgery Plan: Disposition:Hospitalization. Condition: Fair History of Present Illness:77-year-old male arrives for evaluation abdominal pain. Patient notes that he started having abdominal pain yesterday. Pain is rapidly worsened overnight. Associated with increasing chills, fevers, weakness. He did have a bowel movement this morning without blood and states he feels slightly better. He does feel like he has been "bound up" for the last few days. He denies any falls, trauma, injuries. He does still make some urine denies any urinary burning. Denies any flank pain. Denies any chest pain, shortness of breath, syncope, back pain, headache, neck pain, rashes, bleeding/bruising or other signs or symptoms. He did have a TAVR last month at [facility] without problems. He does note that he had an episode of pancreatitis about a month ago as well. He has never had any infections in his abdomen before that he recalls other than his gallbladder removal. He does have surgical scars from gallbladder removal and some other surgery but he cannot member what it was. Patient uses peritoneal dialysis 6 nights a week and last night was his day off. 2 nights ago he did not notice any purulent or concernin g findings in the dialysate when he took it off. He had no medications prior to arrival. Any movement makes abdominal pain worse and rest makes better. ROS: See above HPI for pertinent positives & negatives. A total of 10 systems reviewed and were otherwise negative. Past Medical History:See Below Past Surgical History:See Below Family History:See Below Social History:See Below Home Medications:See Below Allergies:ndka Vitals:Blood Pressure: 121/66, Pulse 94, RR 18, T 37.8C, O2 98% on RA Physical Exam: GENERAL: Patient is unwell/ill appearing and in moderate distress. EYES: No scleral icterus, unremarkable pupils. ENT: Mucous membranes dry, no nasal congestion. NECK: No masses appreciated, nomeningismus, trachea is midline. RESPIRATORY: No dyspnea. Clear to auscultation and equal bilaterally. No wheeze, no rhonchi. CARDIOVASCULAR: Tachy.No murmurs, rubs, gallops appreciated. GASTROINTESTINAL: And mildly distended with diffuse abdominal tenderness to palpation worse over the epigastrium. There is peritoneal dialysis entry point in the left abdomen and fluid within the clear line is clear. BACK: No midline tenderness, no CVA tenderness EXTREMITIES: Normal motion all extremities, no cyanosis, no edema. NEUROLOGIC: Alert and oriented, no acute motor or sensory deficits, no focal weakness, cranial nerves grossly intact. SKIN: No rash, no jaundice, no diaphoresis. PSYCH: Appropriate GCS: 15 ED Course: Times/Reassessments: Much improved after IV fluids and breathing comfortably. Critical Care: I have personally spent 47 minutes of critical care time in the direct management of this patient. Acute SBO with lactic acidosis concerning for ischemia and possible septic shock, fluid resuscitation and management with extensive database consultant discussions. This was a life/limb threatening event. This 47 minutes is in excess of all separately billable procedures. Eber Yo MD Past Med/Surg History Medical History Anxiety and depression AV fistula BPH (benign prostatic hyperplasia) Chronic anemia CKD (chronic kidney disease) stage 5, GFR less than 15 ml/min Diabetes mellitus, type 2 ESRD (end stage renal disease) on dialysis Hyperlipidemia Hypertension Osteoarthritis PAD (peripheral artery disease) Peritoneal dialysis catheter in situ Tobacco abuse Tobacco use Surgical History Cardiac murmur History of cataract surgery RT/LEFT History of cholecystectomy History of colonoscopy History of esophagogastroduodenoscopy (EGD) History of procedure for peripheral vascular disease LEFT LEG (STENT PLACED/REASON FOR TAKING PLAVIX) History of tooth extraction Family History Brother Cancer Social History Smoking Status: Current every day smoker Tobacco Type: Cigarettes Cigarettes Per Day: 10; Second Hand Exposure: No; Do You Dip or Chew Tobacco: No; Tobacco Cessation Education Requested by Patient: No Hx Alcohol Use: No Hx Substance Use: No Preferred Language: Chadian Communication Ability: Effective Dielectric Tester Required: No Beliefs That Will Affect Care: None Current Living Situation: Alone How many Children do You have: 1 Other Information That Helps Us Care for You: No Feels Safe at Home: Yes Safety Concerns: Feels Safe At This Time Assistive Devices: Walker Allergies Allergies Allergy/AdvReac Type Severity Reaction Status Date / Time No Known Allergies Allergy Verified 03/12/22 10:58 Home Meds Home Medications Medication Instructions Recorded Confirmed atorvastatin 40 mg tablet 40 mg PO QPM 07/31/19 03/12/22 cholecalciferol (vitamin D3) 25 1,000 unit PO QAM 07/31/19 03/12/22 mcg (1,000 unit) tablet (Vitamin D3) citalopram 40 mg tablet 40 mg PO QPM 07/31/19 03/12/22 finasteride 5 mg tablet 5 mg PO HS 07/31/19 03/12/22 linagliptin 5 mg tablet (Tradjenta) 5 mg PO QAM 07/31/19 03/12/22 tamsulosin 0.4 mg capsule 0.4 mg PO HS 07/31/19 03/12/22 albuterol sulfate 90 mcg/actuation 2 puff INHALATION Q6H PRN 12/16/19 03/12/22 aerosol inhaler aspirin 81 mg tablet,delayed 81 mg PO QAM 01/06/20 03/12/22 release torsemide 20 mg tablet 40 mg PO QAM 08/14/20 03/12/22 calcitriol 0.25 mcg capsule 0.25 mcg PO QAM 01/31/22 03/12/22 sevelamer carbonate 800 mg tablet 2,400 mg PO TIDM 01/31/22 03/12/22 epoetin beta, methoxy peg 30 30 mcg IV UNKNOWN 03/12/22 03/12/22 mcg/0.3 mL injection syringe (Mircera) fluticasone furoate 200 1 inh INHALATION DAILY 03/12/22 03/12/22 mcg-vilanterol 25 mcg/dose inhalation powder (Breo Ellipta) Previous Rx's Medication Instructions Recorded polyethylene glycol 3350 17 gram 17 g PO DAILY PRN #10 ea 01/23/20 oral powder packet (Miralax) Results & Data (ED) Vital Signs Vital Signs - 24 hr 03/12/22 09:27 03/12/22 10:30 03/12/22 11:00 Temperature 36.7 C Temperature Source Temporal Artery Scan Pulse Rate 94 H 74 75 Pulse Rate from SpO2 Sensor 76 Respiratory Rate 18 20 19 Respiratory Effort / Characteristics Non-Labored Spontaneous Respiratory Depth Normal Respiratory Pattern Regular Blood Pressure 121/66 139/70 152/68 H Blood Pressure Mean 84 93 96 Blood Pressure Position Sitting Pulse Oximetry 98 100 Oxygen Delivery Method Room Air Sepsis Recent Fever Within 48 Hours No Sepsis New/Unexplained Change in Mental Status No Sepsis Action Taken by Nursing No Action Required 03/12/22 11:30 03/12/22 12:00 Temperature Temperature Source Pulse Rate 78 83 Pulse Rate from SpO2 Sensor 82 80 Respiratory Rate 19 19 Respiratory Effort / Characteristics Respiratory Depth Respiratory Pattern Blood Pressure 156/73 H 157/78 H Blood Pressure Mean 100 104 Blood Pressure Position Pulse Oximetry 97 99 Oxygen Delivery Method Room Air Sepsis Recent Fever Within 48 Hours Sepsis New/Unexplained Change in Mental Status Sepsis Action Taken by Nursing Laboratory Data Result diagrams: 03/14/22 03:35 03/14/22 03:35 Lab Results 03/12/22 03/12/22 03/12/22 Range/Units 09:47 09:47 09:47 WBC 15.79 H (4.8-10.8) K/uL RBC 3.91 L (4.7-6.1) M/uL Hgb 12.3 L (14.0-18.0) g/dL Hct 38.2 L (42-52) % MCV 97.7 (80-100) fL MCH 31.5 (25-34) pg MCHC 32.2 (32-36) g/dL RDW Std Deviation 47.4 H (36.4-46.3) fL RDW Coeff of Danny 13.4 (11.5-14.5) % Plt Count 167 (130-400) K/uL MPV 10.2 (7.4-10.4) fL Immature Gran % (Auto) 0.6 % Neut % (Auto) 92.3 % Lymph % (Auto) 2.8 % Clayton % (Auto) 4.2 % Eos % (Auto) 0.0 % Baso % (Auto) 0.1 % Neut # (Auto) 14.58 H (1.4-6.5) K/uL Lymph # (Auto) 0.45 L (1.2-3.4) K/uL Clayton # (Auto) 0.66 H (0.11-0.59) K/uL Eos # (Auto) 0.00 (0-0.5) K/uL Baso # (Auto) 0.01 (0-0.2) K/uL Immature Gran # (Auto) 0.09 H (0.00-0.02) K/uL Sodium 136 (136-145) mmol/L Potassium 4.8 (3.5-5.1) mmol/L Chloride 95 L (98-107) mmol/L Carbon Dioxide 23 (21-32) mmol/L Anion Gap 18 H (3-11) BUN 59 H (6-23) mg/dl Creatinine 5.82 H* (0.6-1.4) mg/dl Est Cr Clr Drug Dosing 10.3 ml/min Est GFR ( Amer) 9.8 ml/min Est GFR (Non-Af Amer) 8.5 ml/min BUN/Creatinine Ratio 10.1 (10-20) Glucose 266 H (70-99(Fasting)) mg/dl Lactate 5.0 H* (0.4-2.0) mmol/L Calcium 9.1 (8.5-10.1) mg/dl Magnesium 2.0 (1.7-2.4) mg/dl Total Bilirubin 0.5 (0.2-1.0) mg/dl Direct Bilirubin 0.1 (0-0.2) mg/dl AST 18 (13-39) U/L ALT 13 (7-52) U/L Alkaline Phosphatase 93 (34-104) U/L Troponin I High Sens 43.2 H (0-20) pg/ml Total Protein 7.4 (6.0-8.3) gm/dl Albumin 3.8 (3.4-5.0) gm/dl Lipase 36 (11-82) U/L Procalcitonin (0-0.5) ng/ml SARS-CoV-2 (PCR) (Negative) Influenza Type A (PCR) (Neg) Influenza Type B (PCR) (Neg) RSV (RT-PCR) (Neg) 03/12/22 03/12/22 03/12/22 Range/Units 09:47 10:00 11:46 WBC (4.8-10.8) K/uL RBC (4.7-6.1) M/uL Hgb (14.0-18.0) g/dL Hct (42-52) % MCV (80-100) fL MCH (25-34) pg MCHC (32-36) g/dL RDW Std Deviation (36.4-46.3) fL RDW Coeff of Danny (11.5-14.5) % Plt Count (130-400) K/uL MPV (7.4-10.4) fL Immature Gran % (Auto) % Neut % (Auto) % Lymph % (Auto) % Clayton % (Auto) % Eos % (Auto) % Baso % (Auto) % Neut # (Auto) (1.4-6.5) K/uL Lymph # (Auto) (1.2-3.4) K/uL Clayton # (Auto) (0.11-0.59) K/uL Eos # (Auto) (0-0.5) K/uL Baso # (Auto) (0-0.2) K/uL Immature Gran # (Auto) (0.00-0.02) K/uL Sodium (136-145) mmol/L Potassium (3.5-5.1) mmol/L Chloride (98-107) mmol/L Carbon Dioxide (21-32) mmol/L Anion Gap (3-11) BUN (6-23) mg/dl Creatinine (0.6-1.4) mg/dl Est Cr Clr Drug Dosing ml/min Est GFR ( Amer) ml/min Est GFR (Non-Af Amer) ml/min BUN/Creatinine Ratio (10-20) Glucose (70-99(Fasting)) mg/dl Lactate 2.8 H* (0.4-2.0) mmol/L Calcium (8.5-10.1) mg/dl Magnesium (1.7-2.4) mg/dl Total Bilirubin (0.2-1.0) mg/dl Direct Bilirubin (0-0.2) mg/dl AST (13-39) U/L ALT (7-52) U/L Alkaline Phosphatase (34-104) U/L Troponin I High Sens (0-20) pg/ml Total Protein (6.0-8.3) gm/dl Albumin (3.4-5.0) gm/dl Lipase (11-82) U/L Procalcitonin 0.43 (0-0.5) ng/ml SARS-CoV-2 (PCR) NEGATIVE (Negative) Influenza Type A (PCR) Negative (Neg) Influenza Type B (PCR) Negative (Neg) RSV (RT-PCR) Negative (Neg) Administered Medications Fluticasone/Vilanterol (Fluticasone/Vilanterol 200/25mcg 14 Puffs/Inhaler) 1 puffs INH DAILY RANDY Stop: 04/12/22 08:59 Last Admin: 03/14/22 07:33 Dose: 1 puffs Documented by: [id number] Admin: 03/13/22 07:26 Dose: 1 puffs Documented by: [id number] Heparin Sodium (Porcine) (Heparin Sod 5,000 Unit/0.5 Ml Vial) 5,000 units SQ Q12 RANDY Stop: 04/11/22 20:59 Last Admin: 03/14/22 07:33 Dose: 5,000 units Documented by: [id number] Admin: 03/13/22 20:43 Dose: 5,000 units Documented by: [id number] Admin: 03/13/22 07:26 Dose: 5,000 units Documented by: [id number] Admin: 03/12/22 19:54 Dose: 5,000 units Documented by: [id number] Piperacillin Sod/Tazobactam (Sod 3.375 gm/ Dextrose) 115 mls @ 28.75 mls/hr IV Q12H RANDY; Protocol Stop: 03/17/22 10:45 Last Infusion: 03/14/22 11:32 Dose: 0 mls/hr Documented by: [id number] Admin: 03/14/22 07:32 Dose: 28.8 mls/hr Documented by: [id number] Infusion: 03/14/22 01:15 Dose: 0 mls/hr Documented by: [id number] Admin: 03/13/22 20:43 Dose: 28.8 mls/hr Documented by: [id number] Infusion: 03/13/22 12:19 Dose: 0 mls/hr Documented by: [id number] Admin: 03/13/22 07:24 Dose: 28.8 mls/hr Documented by: [id number] Infusion: 03/12/22 23:59 Dose: 0 mls/hr Documented by: [id number] Admin: 03/12/22 19:54 Dose: 28.8 mls/hr Documented by: [id number] Sodium Chloride (Nss 1000ml) 1,000 mls @ 30 mls/hr IV .Q24H RANDY Stop: 03/16/22 07:44 Last Admin: 03/14/22 07:59 Dose: 30 mls/hr Documented by: [id number] Insulin Aspart (Insulin Aspart Per Unit) 0 units SC Q6 RANDY Stop: 04/12/22 00:00 Last Admin: 03/14/22 11:23 Dose: Not Given Documented by: [id number] Admin: 03/14/22 05:29 Dose: Not Given Documented by: [id number] Admin: 03/14/22 00:34 Dose: Not Given Documented by: [id number] Admin: 03/13/22 18:12 Dose: Not Given Documented by: [id number] Admin: 03/13/22 12:22 Dose: Not Given Documented by: [id number] Admin: 03/13/22 06:09 Dose: Not Given Documented by: [id number] Admin: 03/13/22 00:27 Dose: Not Given Documented by: [id number] Labetalol HCl (Labetalol Hcl Iv 5 Mg/Ml 20ml) 5 mg IV Q6H PRN PRN Reason: hypertension Stop: 04/11/22 17:04 Last Admin: 03/13/22 04:12 Dose: 5 mg Documented by: [id number] Cosigned by: [id number] Morphine Sulfate (Morphine Sulfate 2 Mg/Ml Carp) 1 mg IV Q4H PRN PRN Reason: Pain Stop: 03/26/22 13:19 Last Admin: 03/13/22 03:02 Dose: 1 mg Documented by: [id number] Admin: 03/12/22 20:03 Dose: 1 mg Documented by: [id number] Discontinued Medications Sodium Chloride (Nss 1000ml) 500 mls @ 999 mls/hr IV .Q31M ONE Stop: 03/12/22 10:11 Last Infusion: 03/12/22 10:35 Dose: 0 mls/hr Documented by: [id number] Admin: 03/12/22 09:55 Dose: 999 mls/hr Documented by: [id number] Sodium Chloride (Nss 1000ml) 1,000 mls @ 999 mls/hr IV .Q1H1M ONE Stop: 03/12/22 11:46 Last Infusion: 03/12/22 13:00 Dose: 0 mls/hr Documented by: [id number] Admin: 03/12/22 11:55 Dose: 999 mls/hr Documented by: [id number] Sodium Chloride (Nss 1000ml) 500 mls @ 999 mls/hr IV .Q31M ONE Stop: 03/12/22 11:16 Last Infusion: 03/12/22 12:25 Dose: 0 mls/hr Documented by: [id number] Admin: 03/12/22 11:55 Dose: 999 mls/hr Documented by: [id number] Piperacillin Sod/Tazobactam Sod (Zosyn) 4.5 gm in 120 mls @ 240 mls/hr IV NOW ONE Stop: 03/12/22 11:15 Last Infusion: 03/12/22 12:25 Dose: 0 mls/hr Documented by: [id number] Admin: 03/12/22 11:47 Dose: 240 mls/hr Documented by: [id number] Vancomycin HCl 1,500 mg/ (Sodium Chloride) 530 mls @ 200 mls/hr IV NOW ONE Stop: 03/12/22 13:24 Last Infusion: 03/12/22 16:05 Dose: 0 mls/hr Documented by: [id number] Admin: 03/12/22 10:47 Dose: 200 mls/hr Documented by: [id number] Sodium Chloride (Nss 1000ml) 1,000 mls @ 20 mls/hr IV .Q24H RANDY Stop: 03/13/22 12:59 Last Infusion: 03/14/22 01:17 Dose: 0 mls/hr Documented by: [id number] Infusion: 03/12/22 21:57 Dose: 20 mls/hr Documented by: [id number] Admin: 03/12/22 14:54 Dose: 65 mls/hr Documented by: [id number] Insulin Aspart (Insulin Aspart Per Unit) 0 units SC ACHS [facility] Stop: 04/11/22 16:29 Last Admin: 03/12/22 18:05 Dose: Not Given Documented by: [id number] Insulin Glargine (Insulin Glargine Solostar 100 Units/Ml 3 Ml Pen) 5 units SC BID RANDY Stop: 04/11/22 20:59 Last Admin: 03/12/22 21:32 Dose: Not Given Documented by: [id number] Ioversol (Optiray 320 125ml) 120 ml IV ONCE ONE Stop: 03/12/22 13:19 Last Admin: 03/12/22 13:18 Dose: 120 ml Documented by: [id number] Miscellaneous (No Heparin In Dialysis) 1 ea N/A ONE ONE Stop: 03/12/22 15:19 Last Admin: 03/12/22 17:56 Dose: Not Given Documented by: [id number] Miscellaneous (No Heparin In Dialysis) 1 ea N/A ONE ONE Stop: 03/13/22 10:27 Last Admin: 03/13/22 14:31 Dose: Not Given Documented by: [id number] Morphine Sulfate (Morphine Sulfate 4 Mg/Ml 1 Ml Carp\\Vial) 4 mg IV NOW STA Stop: 03/12/22 09:42 Last Admin: 03/12/22 09:55 Dose: 4 mg Documented by: [id number] Sodium Biphosphate/Sodium Phosphate (Sod Phosphate/Sod Biphosphate Enema 132 Ml Btl) 132 ml W[place] NOW STA Stop: 03/14/22 09:36 Last Admin: 03/14/22 10:08 Dose: 132 ml Documented by: [id number] Thiamine HCl (Thiamine Hcl 100 Mg Tab) 100 mg PO QAM [facility] Stop: 03/18/22 09:01 Last Admin: 03/12/22 15:09 Dose: Not Given Documented by: [id number] Imaging Data Radiologist's Impression: KUB X-Ray 03/12/22 09:41 KUB CLINICAL HISTORY: diffuse abdominal pain COMPARISON STUDY: KUB February 01, 2022. CT of the abdomen and pelvis January 31, 2022. FINDINGS: Peritoneal dialysis catheter is coiled within the pelvis. There has been interval development of moderate small bowel dilatation since prior exam. Relative paucity of colonic gas. Cholecystectomy clips are noted. No radiographic evidence for pneumatosis. IMPRESSION: Interval development of moderate small bowel dilatation. This favor s a partial small bowel obstruction over ileus. ACT 112: Negative or not required by law. Electronically signed by: Osito Zambrano M.D. 03/12/2022 11:09 AM Chest X-Ray 03/12/22 09:42 XR chest 1V portable CLINICAL HISTORY: fever, sepsis COMPARISON STUDY: Chest radiograph January 31, 2022. FINDINGS: Prosthetic cardiac valve is noted. Cardiac mediastinal silhouette is stable. No pneumothorax or pleural effusion. No evidence for pulmonary edema. Interstitial thickening is improved when compared to exam of January 31, 2022 IMPRESSION: Interval improvement in interstitial thickening since prior exam. ACT 112: Negative or not required by law. Electronically signed by: Osito Zambrano M.D. 03/12/2022 11:07 AM Abdomen/Pelvis CT 03/12/22 10:53 CT OF THE ABDOMEN AND PELVIS WITHOUT CONTRAST CLINICAL HISTORY: Diffuse abdominal pain. COMPARISON STUDY: CT of the abdomen and pelvis January 31, 2022. KUB performed earlier today TECHNIQUE: Axial images of the abdomen and pelvis were obtained without IV contrast. Images were reviewed in the axial, sagittal, and coronal planes. Automated exposure control was utilized for the study. A dose lowering technique was utilized adhering to the principles of ALARA. FINDINGS: Prosthetic aortic valve is incidentally noted. Cardiomegaly is present. No pneumatosis, free air or portal venous gas is present. Evaluation of the abdomen and pelvis is suboptimal on this unenhanced exam. Biliary ductal dilatation is unchanged since CT of August 14, 2020 likely related to cholecystectomy. Mild dilatation of the main pancreatic duct is also unchanged. No hepatic lesions are identified on unenhanced exam. Spleen, adrenal glands and pancreas are unremarkable. Bilateral renal atrophy, greater on the right is again noted. There are several small left renal calculi. There are possible small right renal calculi. Water attenuation lesion within the midpole the left kidney favors a cyst. A few small hyperdense lesions within the right kidney could reflect hyperdense cysts. Intrarenal abdominal aorta is ectatic, measuring 2.6 cm. There is extensive aortoiliac atherosclerotic plaque. There is mild aneurysmal dilatation of the left common iliac artery, measuring 1.9 cm. These findings are similar to CT of August 14, 2020. Peritoneal dialysis catheter is coiled within the anterior pelvis. A small amount of fluid within the abdomen and pelvis is noted. Note is made of mesenteric stranding, most evident within the right aspect the mesentery. The proximal to small bowel is moderately dilate d and fluid-filled. Note is made of a discrete transition point within the right upper quadrant on axial image 149 of 476. The more distal small bowel is significantly decompressed. This represents a moderate to high-grade small bowel obstruction. No acute fracture or suspicious lesion within the visualized skeletal structures. IMPRESSION: 1. Findings consistent with a moderate to high-grade small bowel obstruction. Dilatation of the majority of the small bowel without transition point within the mid ileum, within the right upper quadrant. Decompressed distal small bowel. Associated mesenteric stranding. Small amount of abdominal and pelvic ascites. 2. Peritoneal dialysis catheter coiled within the pelvis. ACT 112: Negative or not required by law. Electronically signed by: Osito Zambrano M.D. 03/12/2022 11:27 AM Abdomen/Pelvis CTA 03/12/22 12:25 CT ANGIOGRAPHY OF THE ABDOMEN AND PELVIS CLINICAL HISTORY: Concern bowel ischemia/embolism, known renal failure. COMPARISON STUDY: CT of the abdomen and pelvis performed earlier today. TECHNIQUE: Helical axial images of the abdomen and pelvis were obtained during arterial phase following intravenous injection of 120 cc Optiray 320 IV. Sagittal and coronal reconstructions were viewed as well as maximal intensity projections on an independent 3-D workstation. FINDINGS: Prosthetic aortic valve is noted. There is cardiomegaly. No pneumatosis, free air or portal venous gas is present in a small amount of abdominal and pelvic ascites is again noted. Peritoneal dialysis catheter is coiled within the anterior aspect of the pelvis. Arterial phase images of the liver, spleen, adrenal glands and pancreas are unremarkable. Mild biliary ductal dilatation is unchanged from earlier exams and likely related to cholecystectomy. Mild dilatation of the main pancreatic duct is also unchanged. There is no peripancreatic infiltration. Marked bilateral renal atrophy, greater on the right, is again noted. Water attenuation left renal lesion reflects a cyst. A few renal lesions are too small to characterize. Extensive aortoiliac atherosclerotic plaque is noted. The celiac axis is patent. There is moderate calcified and noncalcified plaque at the origin of the superior mesenteric artery which results in moderate stenosis. No embolus is identified. There is occlusion of the proximal inferior mesenteric artery with reconstitution. This finding is age indeterminate. Infrarenal abdominal aorta is ectatic. Displaced intimal calcifications within the abdominal aorta chronic. There are also displaced intimal complications within the left common iliac artery, also chronic. Mild aneurysmal dilatation of the left common iliac artery, measuring 2 cm, is noted. There is moderate stenosis at the origin of the left superficial femoral artery. There is moderate stenosis of the right common femoral and proximal right superficial femoral arteries. Severe stenosis of the left internal iliac artery is noted. 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 Distal reconstitution is noted. The majority of the small bowel is mildly dilated and fluid-filled. Similar to prior exam. Transition point within the right upper quadrant on axial image 180 of 526 is noted. Distal small bowel is decompressed. Several mesenteric stranding is noted. This is either unchanged or slightly increased since prior exam. No bowel wall thickening is identified. Small bowel wall enhances normally. IMPRESSION: 1. Findings consistent with a high-grade small bowel obstruction with transition point within the right upper quadrant, as detailed above. Mesenteric infilt ration and ascites are nonspecific although given the clinical history, bowel ischemia cannot be excluded. No pneumatosis, free air or portal venous gas. Surgical consultation is recommended. 2. Extensive aortoiliac atherosclerotic plaque. 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 Patent celiac axis. No embolus identified. 3. Multiple additional findings, as above. ACT 112: Negative or not required by law. Electronically signed by: Osito Zambrano M.D. 03/12/2022 1:37 PM Discharge Plan Visit Data Chief Complaint: Abdominal Pain Stated Complaint: SEVERE ABD PAIN ED Provider: Eber Yo Discharge Problem: Small bowel obstruction, Lactic acidosis, Leukocytosis, ESRD on peritoneal dialysis Patient Disposition: Admitted As Inpatient Discharge Instructions Interventions: ED Discharge Assessment Last Done: 03/12/22 14:00
[2022-03-12 10:03] LABS: Basophils # (auto) 0.01 K/uL (0-0.2); Basophils % (auto) 0.1 %; Hematocrit (blood only) 38.2 % (42-52); Hemoglobin 12.3 g/dL (14.0-18.0); Immature Granulocytes # (auto) 0.09 K/uL (0.00-0.02); Immature Granulocytes % (auto) 0.6 %; Lymphocytes # (auto) 0.45 K/uL (1.2-3.4); Lymphocytes % (auto) 2.8 %; Mean Corpuscular Hemoglobin 31.5 pg (25-34); Mean Corpuscular Hgb Conc 32.2 g/dL (32-36); Mean Corpuscular Volume 97.7 fL (80-100); Mean Platelet Volume 10.2 fL (7.4-10.4); Monocytes # (auto) 0.66 K/uL (0.11-0.59); Monocytes % (auto) 4.2 %; Neutrophils # (auto) 14.58 K/uL (1.4-6.5); Neutrophils % (auto) 92.3 %; Platelet Count 167 K/uL (130-400); RDW Coefficient of Variation 13.4 % (11.5-14.5); RDW Standard Deviation 47.4 fL (36.4-46.3); Red Blood Count 3.91 M/uL (4.7-6.1); White Blood Count 15.79 K/uL (4.8-10.8)
[2022-03-12 10:31] LABS: Troponin I High Sensitivity 43.2 pg/ml (0-20)
[2022-03-12] MEDS ORDERED: PIPERACILLIN/TAZOBACTAM 4.5 GM/120 ML BAG IV ONE (10:46)
[2022-03-12] MEDS ORDERED: VANCOMYCIN HCL 1,500 MG in SODIUM CHLORIDE 0.9% 500 ML IV ONE (10:46)
[2022-03-12] MEDS ORDERED: PIPERACILL/TAZOBAC CONSULT ACTIVE PRN (10:46)
[2022-03-12] MEDS ORDERED: VANCOMYCIN CONSULT ACTIVE PRN (10:46)
[2022-03-12] MEDS ORDERED: SODIUM CHLORIDE 0.9% 1000ML 1,000 ML IV ONE (10:46)
[2022-03-12 10:47] LABS: Albumin Level 3.8 gm/dl (3.4-5.0); BUN Creatinine Ratio 10.1 (10-20); Bilirubin Direct 0.1 mg/dl (0-0.2); Bilirubin,Total 0.5 mg/dl (0.2-1.0); Calcium 9.1 mg/dl (8.5-10.1); Creatinine Clr Calc Pharmacy 10.3 ml/min; Est GFR (African American) 9.8 ml/min; Est GFR (Non-African American) 8.5 ml/min; Potassium 4.8 mmol/L (3.5-5.1); Total Protein 7.4 gm/dl (6.0-8.3)
[2022-03-12 11:06] LABS: Influenza A virus by PCR Negative (Neg); Influenza B virus by PCR Negative (Neg); RSV by PCR Negative (Neg); SARS CoV2 RNA(COVID-19) InHosp NEGATIVE (Negative)
--- NOTE | 2022-03-12 11:08 | XRay Report ---
XR chest 1V portable CLINICAL HISTORY: fever, sepsis COMPARISON STUDY: Chest radiograph January 31, 2022. FINDINGS: Prosthetic cardiac valve is noted. Cardiac mediastinal silhouette is stable. No pneumothora x or pleural effusion. No evidence for pulmonary edema. Interstitial thickening is improved when comp ared to exam of January 31, 2022 IMPRESSION: Interval improvement in interstitial thickening since prior exam. ACT 112: Negative or not required by law. Electronically signed by: Osito Zambrano M.D. 03/12/2022 11:07 AM
--- NOTE | 2022-03-12 11:11 | XRay Report ---
KUB CLINICAL HISTORY: diffuse abdominal pain COMPARISON STUDY: KUB February 01, 2022. CT of the abdomen and pelvis January 31, 2022. FINDINGS: Peritoneal dialysis catheter is coiled within the pelvis. There has been interval developme nt of moderate small bowel dilatation since prior exam. Relative paucity of colonic gas. Cholecystect los clips are noted. No radiographic evidence for pneumatosis. IMPRESSION: Interval development of moderate small bowel dilatation. This favors a partial small bow el obstruction over ileus. ACT 112: Negative or not required by law. Electronically signed by: Osito Zambrano M.D. 03/12/2022 11:09 AM
--- NOTE | 2022-03-12 11:30 | CT Scan Report ---
CT OF THE ABDOMEN AND PELVIS WITHOUT CONTRAST CLINICAL HISTORY: Diffuse abdominal pain. COMPARISON STUDY: CT of the abdomen and pelvis January 31, 2022. KUB performed earlier today TECHNIQUE: Axial images of the abdomen and pelvis were obtained without IV contrast. Images were revi ewed in the axial, sagittal, and coronal planes. Automated exposure control was utilized for the kevin dy. A dose lowering technique was utilized adhering to the principles of ALARA. FINDINGS: Prosthetic aortic valve is incidentally noted. Cardiomegaly is present. No pneumatosis, jared e air or portal venous gas is present. Evaluation of the abdomen and pelvis is suboptimal on this une nhanced exam. Biliary ductal dilatation is unchanged since CT of August 14, 2020 likely related to c holecystectomy. Mild dilatation of the main pancreatic duct is also unchanged. No hepatic lesions are identified on unenhanced exam. Spleen, adrenal glands and pancreas are unremarkable. Bilateral renal atrophy, greater on the right is again noted. There are several small left renal calculi. There are possible small right renal calculi. Water attenuation lesion within the midpole the left kidney favor s a cyst. A few small hyperdense lesions within the right kidney could reflect hyperdense cysts. Intr arenal abdominal aorta is ectatic, measuring 2.6 cm. There is extensive aortoiliac atherosclerotic pl aque. There is mild aneurysmal dilatation of the left common iliac artery, measuring 1.9 cm. These fi ndings are similar to CT of August 14, 2020. Peritoneal dialysis catheter is coiled within the anter ior pelvis. A small amount of fluid within the abdomen and pelvis is noted. Note is made of mesenteri c stranding, most evident within the right aspect the mesentery. The proximal to small bowel is moder ately dilated and fluid-filled. Note is made of a discrete transition point within the right upper qu adrant on axial image 149 of 476. The more distal small bowel is significantly decompressed. This rep resents a moderate to high-grade small bowel obstruction. No acute fracture or suspicious lesion with in the visualized skeletal structures. IMPRESSION: 1. Findings consistent with a moderate to high-grade small bowel obstruction. Dilatation of the major ity of the small bowel without transition point within the mid ileum, within the right upper quadrant . Decompressed distal small bowel. Associated mesenteric stranding. Small amount of abdominal and pel aileen ascites. 2. Peritoneal dialysis catheter coiled within the pelvis. ACT 112: Negative or not required by law. Electronically signed by: Osito Zambrano M.D. 03/12/2022 11:27 AM
--- NOTE | 2022-03-12 12:38 | Surgery Consultation ---
Date of Consultation March 12, 2022 Assessment & Plan (1) Abdominal pain: pt is a 77 year-old male who presents to ER with one day history acute abdominal pain, CT Scan- IMPRESSION: 1. Findings consistent with a moderate to high-grade small bowel obstruction. Dilatation of the majority of the small bowel without transition point within the mid ileum, within the right upper quadrant. Decompressed distal small bowel. Associated mesenteric stranding. Small amount of abdominal and pelvic ascites. 2. Peritoneal dialysis catheter coiled within the pelvis. IMP: abdominal pain, SBO, ischemic bowel? plan, base on pt is S/P TAVR, recommend to have CTA abdomen with IV contrast to R/O emboli mesenteric artery occlusion, ischemic bowel, D/W benefits, risks and alternatives of the CT A with pt and his family member, they agree with the CTA, D/W ER attending, NG tube insertion, IV fluid, IV antibiotic, control pain, will F/U CTA abdomen, IMPRESSION: 1. Findings consistent with a high-grade small bowel obstruction with transition point within the right upper quadrant, as detailed above. Mesenteric infiltration and ascites are nonspecific although given the clinical history, bowel ischemia cannot be excluded. No pneumatosis, free air or portal venous gas. Surgical consultation is recommended. 2. Extensive aortoiliac atherosclerotic plaque. 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 Patent celiac axis. No embolus identified. 3. Multiple additional findings, as above. plan, may need consult vascular surgeon to R/O ischemic bowel, and hospitalist will admit to hospital , conservative treatment, repeat laps and KUB in morning, pt feels better now, less abdominal pain, repeat lactate 2.8 from 5, no emergent surgery indication now, but may need surgery treatment if pt 's symptoms worse, pt and family member understood, will F/U, D/W ER attending, (2) SBO (small bowel obstruction): see above History of Present Illness Reason for Consultation: abdominal pain Requesting Physician: Eber Hall MD History of Present Illness CC: abdominal pain History of Present Illness:77-year-old male arrives for evaluation abdominal pain. Patient notes that he started having abdominal pain yesterday. Pain is rapidly worsened overnight. Associated with increasing chills, fevers, weakness. He did have a bowel movement this morning without blood and states he feels slightly better. He does feel like he has been "bound up" for the last few days. He denies any falls, trauma, injuries. He does still make some urine denies any urinary burning. Denies any flank pain. Denies any chest pain, shortness of breath, syncope, back pain, headache, neck pain, rashes, bleeding/bruising or other signs or symptoms. He did have a TAVR last month at [facility] without problems. He does note that he had an episode of pancreatitis about a month ago as well. He has never had any infections in his abdomen before that he recalls other than his gallbladder removal. He does have surgical scars from gallbladder removal and some other surgery but he cannot member what it was. Patient uses peritoneal dialysis 6 nights a week and last night was his day off. 2 nights ago he did not notice any purulent or concerning findings in the dialysate when he took it off. He had no medications prior to arrival. Any movement makes abdominal pain worse and rest makes better. I ( Tommy hutton MD ) got a call for consult abdominal pain, I reviewed pt's H/P, labs and CT scan with pt and his family member. now pt feels better, ROS: See above HPI for pertinent positives & negatives. A total of 10 systems reviewed and were otherwise negative. Allergies Allergy/AdvReac Type Severity Reaction Status Date / Time No Known Allergies Allergy Verified 03/12/22 10:58 Home Medications Medication Instructions Recorded Confirmed Type atorvastatin 40 mg tablet 40 mg PO QPM 07/31/19 03/12/22 History cholecalciferol (vitamin D3) 25 1,000 unit PO QAM 07/31/19 03/12/22 History mcg (1,000 unit) tablet (Vitamin D3) citalopram 40 mg tablet 40 mg PO QPM 07/31/19 03/12/22 History finasteride 5 mg tablet 5 mg PO HS 07/31/19 03/12/22 History linagliptin 5 mg tablet (Tradjenta) 5 mg PO QAM 07/31/19 03/12/22 History tamsulosin 0.4 mg capsule 0.4 mg PO HS 07/31/19 03/12/22 History albuterol sulfate 90 mcg/actuation 2 puff INHALATION Q6H PRN 12/16/19 03/12/22 H istory aerosol inhaler aspirin 81 mg tablet,delayed 81 mg PO QAM 01/06/20 03/12/22 History release polyethylene glycol 3350 17 gram 17 g PO DAILY PRN #10 ea 01/23/20 03/12/22 Rx oral powder packet (Miralax) torsemide 20 mg tablet 40 mg PO QAM 08/14/20 03/12/22 History calcitriol 0.25 mcg capsule 0.25 mcg PO QAM 01/31/22 03/12/22 History sevelamer carbonate 800 mg tablet 2,400 mg PO TIDM 01/31/22 03/12/22 History epoetin beta, methoxy peg 30 30 mcg IV UNKNOWN 03/12/22 03/12/22 History mcg/0.3 mL injection syringe (Mircera) fluticasone furoate 200 1 inh INHALATION DAILY 03/12/22 03/12/22 History mcg-vilanterol 25 mcg/dose inhalation powder (Breo Ellipta) Patient History Medical History Anxiety and depression BPH (benign prostatic hyperplasia) Chronic anemia CKD (chronic kidney disease) stage 5, GFR less than 15 ml/min Diabetes mellitus, type 2 ESRD (end stage renal disease) on dialysis Hyperlipidemia Hypertension Osteoarthritis PAD (peripheral artery disease) Tobacco abuse Tobacco use Surgical History Cardiac murmur History of cataract surgery RT/LEFT History of cholecystectomy History of colonoscopy History of esophagogastroduodenoscopy (EGD) History of procedure for peripheral vascular disease LEFT LEG (STENT PLACED/REASON FOR TAKING PLAVIX) History of tooth extraction Family History Brother Cancer Social History Smoking Status: Current every day smoker Tobacco Type: Cigarettes Cigarettes Per Day: 10; Second Hand Exposure: No; Hx Alcohol Use: No Hx Substance Use: No Preferred Language: Gibralt[place] Communication Ability: Effective Test Lead Application Testing Required: No Beliefs That Will Affect Care: None Current Living Situation: Alone How many Children do You have: 1 Feels Safe at Home: Yes Assistive Devices: Walker Review of Systems Constitutional: as per Subjective / HPI Eyes: as per Subjective / HPI Respiratory: as per Subjective / HPI acute respiratory failure with hypoxia Cardiovascular: Additional Comments: CHF, TAVR, PAD, HTN, hyperlipidemia Gastrointestinal: S/P cholecystectomy, SBO, gastritis Genitourinary: + problem reported (renal failure, on peritoneal catheter dialysis) Physical Exam Neurologic: patellar DTR's 2+ bilat, sensation intact Psychiatric: A+Ox3, euthymic affect Results & Data ([facility]) Vital Signs (Past 12 Hours) Vital Signs Temp Pulse Resp BP Pulse Ox 03/12/22 12:00 83 19 157/78 H 99 03/12/22 11:30 78 19 156/73 H 97 03/12/22 11:00 75 19 152/68 H 03/12/22 10:30 74 20 139/70 100 03/12/22 09:27 36.7 C 94 H 18 121/66 98 Laboratory Results Abnormal lab results 03/12/22 03/12/22 03/12/22 Range/Units 09:47 09:47 09:47 WBC 15.79 H (4.8-10.8) K/uL RBC 3.91 L (4.7-6.1) M/uL Hgb 12.3 L (14.0-18.0) g/dL Hct 38.2 L (42-52) % RDW Std Deviation 47.4 H (36.4-46.3) fL Neut # (Auto) 14.58 H (1.4-6.5) K/uL Lymph # (Auto) 0.45 L (1.2-3.4) K/uL [place] # (Auto) 0.66 H (0.11-0.59) K/uL Immature Gran # (Auto) 0.09 H (0.00-0.02) K/uL Chloride 95 L (98-107) mmol/L Anion Gap 18 H (3-11) BUN 59 H (6-23) mg/dl Creatinine 5.82 H* (0.6-1.4) mg/dl Glucose 266 H (70-99(Fasting)) mg/dl Lactate 5.0 H* (0.4-2.0) mmol/L Troponin I High Sens 43.2 H (0-20) pg/ml 03/12/22 Range/Units 11:46 WBC (4.8-10.8) K/uL RBC (4.7-6.1) M/uL Hgb (14.0-18.0) g/dL Hct (42-52) % RDW Std Deviation (36.4-46.3) fL Neut # (Auto) (1.4-6.5) K/uL Lymph # (Auto) (1.2-3.4) K/uL [place] # (Auto) (0.11-0.59) K/uL Immature Gran # (Auto) (0.00-0.02) K/uL Chloride (98-107) mmol/L Anion Gap (3-11) BUN (6-23) mg/dl Creatinine (0.6-1.4) mg/dl Glucose (70-99(Fasting)) mg/dl Lactate 2.8 H* (0.4-2.0) mmol/L Troponin I High Sens (0-20) pg/ml Diagnostic Findings CT OF THE ABDOMEN AND PELVIS WITHOUT CONTRAST CLINICAL HISTORY: Diffuse abdominal pain. COMPARISON STUDY: CT of the abdomen and pelvis January 31, 2022. KUB performed earlier today TECHNIQUE: Axial images of the abdomen and pelvis were obtained without IV contrast. Images were reviewed in the axial, sagittal, and coronal planes. Automated exposure control was utilized for the study. A dose lowering technique was utilized adhering to the principles of ALARA. FINDINGS: Prosthetic aortic valve is incidentally noted. Cardiomegaly is present. No pneumatosis, free air or portal venous gas is present. Evaluation of the abdomen and pelvis is suboptimal on this unenhanced exam. Biliary ductal dilatation is unchanged since CT of August 14, 2020 likely related to cholecystectomy. Mild dilatation of the main pancreatic duct is also unchanged. No hepatic lesions are identified on unenhanced exam. Spleen, adrenal glands and pancreas are unremarkable. Bilateral renal atrophy, greater on the right is again noted. There are several small left renal calculi. There are possible small right renal calculi. Water attenuation lesion within the midpole the left kidney favors a cyst. A few small hyperdense lesions within the right kidney could reflect hyperdense cysts. Intrarenal abdominal aorta is ectatic, measuring 2.6 cm. There is extensive aortoiliac atherosclerotic plaque. There is mild aneurysmal dilatation of the left common iliac artery, measuring 1.9 cm. These findings are similar to CT of August 14, 2020. Peritoneal dialysis catheter is coiled within the anterior pelvis. A small amount of fluid within the abdomen and pelvis is noted. Note is made of mesenteric stranding, most evident within the right aspect the mesentery. The proximal to small bowel is moderately dilated and fluid-filled. Note is made of a discrete transition point within the right upper quadrant on axial image 149 of 476. The more distal small bowel is significantly decompressed. This represents a moderate to high-grade small bowel obstruction. No acute fracture or suspicious lesion within the visualized skeletal structures. IMPRESSION: 1. Findings consistent with a moderate to high-grade small bowel obstruction. Dilatation of the majority of the small bowel without transition point within the mid ileum, within the right upper quadrant. Decompressed distal small bowel. Associated mesenteric stranding. Small amount of abdominal and pelvic ascites. 2. Peritoneal dialysis catheter coiled within the pelvis. CTA abdomen, IMPRESSION: 1. Findings consistent with a high-grade small bowel obstruction with transition point within the right upper quadrant, as detailed above. Mesenteric infiltration and ascites are nonspecific although given the clinical history, bowel ischemia cannot be excluded. No pneumatosis, free air or portal venous g as. Surgical consultation is recommended. 2. Extensive aortoiliac atherosclerotic plaque. 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 Patent celiac axis. No embolus identified. 3. Multiple additional findings, as above. (1) Abdominal pain Abdominal location: unspecified location Qualified Code(s): R10.9 - Unspecified abdominal pain
--- NOTE | 2022-03-12 12:59 | History & Physical Report ---
Date of Service March 12, 2022 Assessment & Plan (1) SBO (small bowel obstruction): Plan: #. Abdominal pain #. Elevated blood lactic acid level #. Leukocytosis Patient presents with sharp abdominal pain for 2 days, intermittent in nature, not noticed any progressive nature, but not resolving, no aggravating/alleviating factors, mostly diffuse [more so on the right side], has peritoneal dialysis catheter in left side with no signs of infection at port of entry. Admitting imaging: Admitting KUB x-ray: Suggestive of moderate small bowel dilatation favoring partial small bowel obstruction. Admitting CTAP: Consistent with moderate to high-grade small bowel obstruction. Dilatation of the majority of the small bowel with a transition point within the mid ileum, within the right upper quadrant. Decompressed distal small bowel. Associated mesenteric stranding. Small amount of abdominal and pelvic ascites. Admitting lactate elevated at 5.0, trend until normal, continue with IV fluid. S/p ivf resuscitation in The ED. Admitting WBC elevated at 15.7 9K Does not meet SIRS criteria Likely mesenteric ischemia versus peritoneal infection. Patient had recent TAVR procedure, likelihood of having embolic phenomena high. --> NPO Follow-up peritoneal fluid studies/culture, blood culture, continue with Zosyn and Vanco that was started in the ED. F/u labs in AM. Surgery consult, appreciate recommendation. Follow-up CT angio abdomen pelvis with contrast. #. Elevated troponin Admitting troponin of 43.2, trend troponin. Admitting EKG reviewed, concern for septal infarct (<= 1mm ST elevation in V1 and similar ST elevation in V2 as In January EKG) Patient has extensive cardiac history, recent TAVR for severe aortic stenosis on 02/16/[address] Moulton Low threshold for Cardiology consult. f/u troponin, patient with no chest pain or palpitation. EKG prn for chest pain. #. Other chronic medical conditions: Resume/continue with home meds as and when appropriate. A1C february 01, 2022: 6.0; on tradjenta home,hold, c/w ssi while in patient. Pt currently NPO, adjust with diet changes along the process. #. DVT prophylaxis: Hold on heparin pending condition for any procedure from surgery. #. Full code, patient would like his daughter Krystal to make decision if needed. History of Present Illness Chief Complaint: Belly pain for 2 days Primary Care Provider: Laron Peña MD 77-year-old gentleman with PMH of severe aortic stenosis status post TAVR 02/16/[address] Moulton, T2DM with PVD, diabetic retinopathy of right eye, ESRD on PD, HTN, BPH, anemia of chronic disease, current tobacco use and depression with anxiety presented to our ED 03/12 with complaint of belly pain for 2 days. Per patient, he has been having this sharp pain around umbilicus since 2 days [employer] LO[employer], intermittent in nature, 2-4 times a day, when present the pain is 6-7 over 10, lasts for half an hour or so, no aggravating [eating/exertion not affecting the level of pain] or relieving factors per patient. Patient reports having "bound up" bowel movement on the day of arrival. Patient denies any fever or chills or myalgia or pain or burning while passing urine or increasing frequency of urine or headache or chest pain or palpitation. Patient reports nausea and he vomited 2 times the day prior to arrival, reports feeling weak and having sore throat since 1 day. Patient reports cough at baseline. Patient reports eating and drinking okay. Patient smokes tobacco since age 16, half pack a day. He was occasional alcoholic consumer [over the weekends], quit drinking couple of years ago. D enies any use of recreational drugs current or past. Full code, would like his daughter Krystal to make decisions for him. 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 Allergies Allergy/AdvReac Type Severity Reaction Status Date / Time No Known Allergies Allergy Verified 03/12/22 10:58 Home Medications Medication Instructions Recorded Confirmed Type atorvastatin 40 mg tablet 40 mg PO QPM 07/31/19 03/12/22 History cholecalciferol (vitamin D3) 25 1,000 unit PO QAM 07/31/19 03/12/22 History mcg (1,000 unit) tablet (Vitamin D3) citalopram 40 mg tablet 40 mg PO QPM 07/31/19 03/12/22 History finasteride 5 mg tablet 5 mg PO HS 07/31/19 03/12/22 History linagliptin 5 mg tablet (Tradjenta) 5 mg PO QAM 07/31/19 03/12/22 History tamsulosin 0.4 mg capsule 0.4 mg PO HS 07/31/19 03/12/22 History albuterol sulfate 90 mcg/actuation 2 puff INHALATION Q6H PRN 12/16/19 03/12/22 History aerosol inhaler aspirin 81 mg tablet,delayed 81 mg PO QAM 01/06/20 03/12/22 History release polyethylene glycol 3350 17 gram 17 g PO DAILY PRN #10 ea 01/23/20 03/12/22 Rx oral powder packet (Miralax) torsemide 20 mg tablet 40 mg PO QAM 08/14/20 03/12/22 History calcitriol 0.25 mcg capsule 0.25 mcg PO QAM 01/31/22 03/12/22 History sevelamer carbonate 800 mg tablet 2,400 mg PO TIDM 01/31/22 03/12/22 History epoetin beta, methoxy peg 30 30 mcg IV UNKNOWN 03/12/22 03/12/22 History mcg/0.3 mL injection syringe (Mircera) fluticasone furoate 200 1 inh INHALATION DAILY 03/12/22 03/12/22 History mcg-vilanterol 25 mcg/dose inhalation powder (Breo Ellipta) Past Med/Surg History Medical History Anxiety and depression BPH (benign prostatic hyperplasia) Chronic anemia CKD (chronic kidney disease) stage 5, GFR less than 15 ml/min Diabetes mellitus, type 2 ESRD (end stage renal disease) on dialysis Hyperlipidemia Hypertension Osteoarthritis PAD (peripheral artery disease) Tobacco abuse Tobacco use Surgical History Cardiac murmur History of cataract surgery RT/LEFT History of cholecystectomy History of colonoscopy History of esophagogastroduodenoscopy (EGD) History of procedure for peripheral vascular disease LEFT LEG (STENT PLACED/REASON FOR TAKING PLAVIX) History of tooth extraction Family History Brother Cancer Social History Smoking Status: Current every day smoker Tobacco Type: Cigarettes Cigarettes Per Day: 10; Second Hand Exposure: No; Hx Alcohol Use: No Hx Substance Use: No Preferred Language: Ukrainian Communication Ability: Effective Games Manager Required: No Beliefs That Will Affect Care: None Current Living Situation: Alone How many Children do You have: 1 Feels Safe at Home: Yes Assistive Devices: Walker Review of Systems Review of Systems: Negative as otherwise mentioned in H&P. Physical Exam Physical Exam: GENERAL: Alert and oriented x3. NAD, on RA. Looks ill and frail. HEENT: No pallor, no icterus. Pupils equal, round and reactive to light. Oral mucosa dry. NECK: No JVD, no neck masses. HEART: S1 and S2 heard. Regular rate and rhythm. Systolic murmur at aortic and pulmonic area, no gallop. RESPIRATORY SYSTEM: Normal AP diameter. No accessory muscle use. No wheezing, no crackles. ABDOMEN: Soft, decreased bowel sounds, PD catheter on left side without signs of infection at port of entry, diffuse tenderness more so on the right side, no rebound tenderness. Mild distention noted. CENTRAL NERVOUS SYSTEM: No facial droop. Speech is clear. Obeys simple commands. Moves extremities. EXTREMITIES: No edema, no erythema seen. Results & Data Results & Data ([facility]) Vital Signs (Past 12 Hours) Vital Signs Temp Pulse Resp BP Pulse Ox 03/12/22 12:00 83 19 157/78 H 99 03/12/22 11:30 78 19 156/73 H 97 03/12/22 11:00 75 19 152/68 H 03/12/22 10:30 74 20 139/70 100 03/12/22 09:27 36.7 C 94 H 18 121/66 98 Code Status & VTE Plan VTE Prophylaxis Plan VTE Prophylaxis will be ordered: Yes
[2022-03-12] MEDS ORDERED: THIAMINE HCL 100 MG TAB PO SCH (13:00)
[2022-03-12] MEDS ORDERED: SODIUM CHLORIDE 0.9% 1000ML 1,000 ML IV SCH (13:00)
[2022-03-12] MEDS ORDERED: GLUCOSE 40% GEL 15 GM TUBE PO PRN (13:13)
[2022-03-12] MEDS ORDERED: GLUCOSE 10 TABS/TUBE PO PRN (13:13)
[2022-03-12] MEDS ORDERED: GLUCAGON FOR INJ 1 MG VIAL SQ PRN (13:13)
[2022-03-12] MEDS ORDERED: DEXTROSE 50% 50 ML SYRINGE IV PRN (13:13)
[2022-03-12] MEDS ORDERED: CARBOHYDRATES FOR HYPOGLYCEMIA PO PRN (13:13)
[2022-03-12] MEDS ORDERED: OPTIRAY 320 125ml IV ONE (13:18)
--- NOTE | 2022-03-12 13:40 | CT Scan Report ---
CT ANGIOGRAPHY OF THE ABDOMEN AND PELVIS CLINICAL HISTORY: Concern bowel ischemia/embolism, known renal failure. COMPARISON STUDY: CT of the abdomen and pelvis performed earlier today. TECHNIQUE: Helical axial images of the abdomen and pelvis were obtained during arterial phase followi ng intravenous injection of 120 cc Optiray 320 IV. Sagittal and coronal reconstructions were viewed a s well as maximal intensity projections on an independent 3-D workstation. FINDINGS: Prosthetic aortic valve is noted. There is cardiomegaly. No pneumatosis, free air or portal venous gas is present in a small amount of abdominal and pelvic ascites is again noted. Peritoneal d ialysis catheter is coiled within the anterior aspect of the pelvis. Arterial phase images of the rajinder er, spleen, adrenal glands and pancreas are unremarkable. Mild biliary ductal dilatation is unchanged from earlier exams and likely related to cholecystectomy. Mild dilatation of the main pancreatic ashley t is also unchanged. There is no peripancreatic infiltration. Marked bilateral renal atrophy, greater on the right, is again noted. Water attenuation left renal lesion reflects a cyst. A few renal lesio ns are too small to characterize. Extensive aortoiliac atherosclerotic plaque is noted. The celiac ax is is patent. There is moderate calcified and noncalcified plaque at the origin of the superior mesen teric artery which results in moderate stenosis. No embolus is identified. There is occlusion of the proximal inferior mesenteric artery with reconstitution. This finding is age indeterminate. Infrarena l abdominal aorta is ectatic. Displaced intimal calcifications within the abdominal aorta chronic. Th ere are also displaced intimal complications within the left common iliac artery, also chronic. Mild aneurysmal dilatation of the left common iliac artery, measuring 2 cm, is noted. There is moderate st enosis at the origin of the left superficial femoral artery. There is moderate stenosis of the right common femoral and proximal right superficial femoral arteries. Severe stenosis of the left internal iliac artery is noted. There is occlusion of the right internal carotid artery which is likely chroni c. Distal reconstitution is noted. The majority of the small bowel is mildly dilated and fluid-filled. Similar to prior exam. Transition point within the right upper quadrant on axial image 180 of 526 is noted. Distal small bowel is deco mpressed. Several mesenteric stranding is noted. This is either unchanged or slightly increased since prior exam. No bowel wall thickening is identified. Small bowel wall enhances normally. IMPRESSION: 1. Findings consistent with a high-grade small bowel obstruction with transition point within the rig ht upper quadrant, as detailed above. Mesenteric infiltration and ascites are nonspecific although gi mukund the clinical history, bowel ischemia cannot be excluded. No pneumatosis, free air or portal venou s gas. Surgical consultation is recommended. 2. Extensive aortoiliac atherosclerotic plaque. 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 Patent celiac axis. No embolus identified. 3. Multiple additional findings, as above. ACT 112: Negative or not required by law. Electronically signed by: Osito Zambrano M.D. 03/12/2022 1:37 PM
--- NOTE | 2022-03-12 14:35 | Nephrology Consultation ---
Date of Consultation March 12, 2022 Assessment & Plan (1) ESRD (end stage renal disease) on dialysis: Last dialysis 2 days back; has functional AV fistula in addition to PD catheter -evaluate for PD peritonitis as below -plan 2 hrs HD today to optimize patient in case he needs to go to OR emergently overnight; preferably would put him on PD but b/c no belt loop cutter coverage 28/05 to take him off tx if emergency, will do hemo for this evening and reeval in AM >>only belt loop cutter should manipulate/access PD catheter unless d/w nephrology MD -up to 1.3L UF keeping SBP > 110 on HD and no heparin on tx today -hold torsemide; will lower IVF rate as well as below -reeval in am for next best steps wtih regard to dialysis/fluid mgt (2) SBO (small bowel obstruction): for conservative management currently with NGT, abtx; gen surgery following, vascular aware but not evaluating at this time NPO > has one L NS ordered slow rate >> will lower rate of this to 20 mL/hr and actually remove fluid w/ HD w/ liberal BP parameters (3) Abdominal pain: presume from SBO; ischemic bowel in differential need to evaluate for PD peritonitis as well > needs peritoneal dialysate/effluent culture, cell count, diff > orders in for specimen to be collected by dialysis nurse today History of Present Illness Reason for Consultation: ESRD on PD Requesting Physician: Dr Lua Attending Physician: Dr Lua History of Present Illness 77 y/o M on ESRD on peritoneal dialysis w/ recent TAVR on 02/14 whom I'm asked to see for dialysis needs was admitted to internal medicine after presenting w/ severe abdominal pain most consistent at this time with bowel obstruction. Other PMH includes HTN, HFpEF, DM, COPD, active tobacco abuse, PAD s/p LLE stent, HL. He has a functional LUE AV fistula. Admitted here in past for SBO, last one August 2020. Seen in [facility] ER 02/19/22 for abd pain but pt and daughter declined to stay for work up such as CT abd since his symptoms improved. Pt tells he his generalized abdominal pain began about 2 days ago and that last evening he had subjective fevers. Intermittent crampy and severe pain, non radiating; no exacerbating/mitigating ff. did have N/V yesterday. some constipation but did have small BM today. Denies sob/wheeze/worsening of chronic cough. no chest pain or palpitations. States PD has been going uneventfully with 6 days/week treatments. His RX at hospital d/c from [facility] last month was 6 days/wk 4 x 2.8L exchanges w/ 500 mL LBF. d/t potentially life threatening ischemic bowel diagnosis, in coordination with nephro, CT abd/pelvis angio was obtained > high grade SBO and bowel ischemia not excluded. Gen surg following; vascular aware of pt but no formal evaluation indicated currently; pt started on vanco, zosyn and NGT placed. Allergies Allergy/AdvReac Type Severity Reaction Status Date / Time No Known Allergies Allergy Verified 03/12/22 10:58 Home Medications Medication Instructions Recorded Confirmed Type atorvastatin 40 mg tablet 40 mg PO QPM 07/31/19 03/12/22 History cholecalciferol (vitamin D3) 25 1,000 unit PO QAM 07/31/19 03/12/22 History mcg (1,000 unit) tablet (Vitamin D3) citalopram 40 mg tablet 40 mg PO QPM 07/31/19 03/12/22 History finasteride 5 mg tablet 5 mg PO HS 07/31/19 03/12/22 History linagliptin 5 mg tablet (Tradjenta) 5 mg PO QAM 07/31/19 03/12/22 History tamsulosin 0.4 mg capsule 0.4 mg PO HS 07/31/19 03/12/22 History albuterol sulfate 90 mcg/actuation 2 puff INHALATION Q6H PRN 12/16/19 03/12/22 History aerosol inhaler aspirin 81 mg tablet,delayed 81 mg PO QAM 01/06/20 03/12/22 History release polyethylene glycol 3350 17 gram 17 g PO DAILY PRN #10 ea 01/23/20 03/12/22 Rx oral powder packet (Miralax) torsemide 20 mg tablet 40 mg PO QAM 08/14/20 03/12/22 History calcitriol 0.25 mcg capsule 0.25 mcg PO QAM 01/31/22 03/12/22 History sevelamer carbonate 800 mg tablet 2,400 mg PO TIDM 01/31/22 03/12/22 History epoetin beta, methoxy peg 30 30 mcg IV UNKNOWN 03/12/22 03/12/22 History mcg/0.3 mL injection syringe (Mircera) fluticasone furoate 200 1 inh INHALATION DAILY 03/12/22 03/12/22 History mcg-vilanterol 25 mcg/dose inhalation powder (Breo Ellipta) Patient History Medical History Anxiety and depression AV fistula BPH (benign prostatic hyperplasia) Chronic anemia CKD (chronic kidney disease) stage 5, GFR less than 15 ml/min Diabetes mellitus, type 2 ESRD (end stage renal disease) on dialysis Hyperlipidemia Hypertension Osteoarthritis PAD (peripheral artery disease) Peritoneal dialysis catheter in situ Tobacco abuse Tobacco use Surgical History Cardiac murmur History of cataract surgery RT/LEFT History of cholecystectomy History of colonoscopy History of esophagogastroduodenoscopy (EGD) History of procedure for peripheral vascular disease LEFT LEG (STENT PLACED/REASON FOR TAKING PLAVIX) History of tooth extraction Family History Brother Cancer Social History Smoking Status: Current every day smoker Tobacco Type: Cigarettes Cigarettes Per Day: 10; Second Hand Exposure: No; Do You Dip or Chew Tobacco: No; Tobacco Cessation Education Requested by Patient: No Hx Alcohol Use: No Hx Substance Use: No Preferred Language: Spanish Communication Ability: Effective Marine Steward Required: No Beliefs That Will Affect Care: None Current Living Situation: Alone How many Children do You have: 1 Other Information That Helps Us Care for You: No Feels Safe at Home: No Is there a partner from a previous relationship who is making you feel unsafe now?: No Any Concerns about Your Family Situation: No Would You Like to Speak to Someone About Your Situation: No Safety Concerns: Feels Safe At This Time Assistive Devices: Walker Review of Systems Review of Systems: All systems reviewed & are unremarkable except as noted in HPI & below Physical Exam Constitutional: well developed, average body habitus and cooperative; no acute distress Eyes: EOM intact bilaterally ENMT: Ears: no external ear abnormality Nose: no external nose abnormality Mouth: + dry oral mucous membranes Neck: no nuchal rigidity Respiratory: normal respiratory effort Auscultation: + diminished lung sounds Cardiovascular: Rate/Rhythm: regular rate and regular rhythm Heart Sounds: + murmur Extremities: + AV fistula; no edema Gastrointestinal (Abdomen): Inspection/Auscultation: normal bowel sounds Percussion/Palpation: + abdomen tender, + guarding and abdomen soft PD catheter in place Musculoskeletal: Extremities: strength 5/5 throughout Skin: no rashes, warm and dry Neurologic: albarran, fluent speech, no tremor Psychiatric: Orientation: oriented x 3 Results & Data ([facility]) Vital Signs (Past 12 Hours) Vital Signs Temp Pulse Resp BP Pulse Ox 03/12/22 12:00 83 19 157/78 H 99 03/12/22 11:30 78 19 156/73 H 97 03/12/22 11:00 75 19 152/68 H 03/12/22 10:30 74 20 139/70 100 03/12/22 09:27 36.7 C 94 H 18 121/66 98 Laboratory Results 03/12/22 09:47 03/12/22 09:47 Diagnostic Findings Abdominal/pelvis CTA FINDINGS: Prosthetic aortic valve is noted. There is cardiomegaly. No pneumatosis, free air or portal venous gas is present in a small amount of abdominal and pelvic ascites is again noted. Peritoneal dialysis catheter is coiled within the anterior aspect of the pelvis. Arterial phase images of the liver, spleen, adrenal glands and pancreas are unremarkable. Mild biliary ductal dilatation is unchanged from earlier exams and likely related to cholecystectomy. Mild dilatation of the main pancreatic duct is also unchanged. There is no peripancreatic infiltration. Marked bilateral renal atrophy, greater on the right, is again noted. Water attenuation left renal lesion reflects a cyst. A few renal lesions are too small to characterize. Extensive aortoiliac atherosclerotic plaque is noted. The celiac axis is patent. There is moderate calcified and noncalcified plaque at the origin of the superior mesenteric artery which results in moderate stenosis. No embolus is identified. There is occlusion of the proximal inferior mesenteric artery with reconstitution. This finding is age indeterminate. Infrarenal abdominal aorta is ectatic. Displaced intimal calcifications within the abdominal aorta chronic. There are also displaced intimal complications within the left common iliac artery, also chronic. Mild aneurysmal dilatation of the left common iliac artery, measuring 2 cm, is noted. There is moderate stenosis at the origin of the left superficial femoral artery. There is moderate stenosis of the right common femoral and proximal right superficial femoral arteries. Severe stenosis of the left internal iliac artery is noted. 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 Distal reconstitution is noted. The majority of the small bowel is mildly dilated and fluid-filled. Similar to prior exam. Transition point within the right upper quadrant on axial image 180 of 526 is noted. Distal small bowel is decompressed. Several mesenteric stranding is noted. This is either unchanged or slightly increased since prior exam. No bowel wall thickening is identified. Small bowel wall enhances normally. IMPRESSION: 1. Findings consistent with a high-grade small bowel obstruction with transition point within the right upper quadrant, as detailed above. Mesenteric infiltration and ascites are nonspecific although given the clinical history, bowel ischemia cannot be excluded. No pneumatosis, free air or portal venous gas. Surgical consultation is recommended. 2. Extensive aortoiliac atherosclerotic plaque. 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 Patent celiac axis. No embolus identified. 3. Multiple additional findings, as above. cxr IMPRESSION: Interval improvement in interstitial thickening since prior exam. (1) Abdominal pain Abdominal location: unspecified location Qualified Code(s): R10.9 - Unspecified abdominal pain
[2022-03-12] MEDS ORDERED: ALBUTEROL HFA 8 GM INHALER INH PRN (14:52)
[2022-03-12] MEDS ORDERED: SODIUM CHLORIDE 0.9% 1000ML 1,000 ML IV PRN (15:18)
--- NOTE | 2022-03-12 15:54 | Pharmacy Report ---
Pharmacy Vanc AUC Short Note - Date of Service March 12, 2022 - Assessment & Plan Assessment 77 year old M receiving IV vancomycin and zosyn empirically for coverage of mesenteric ischemia vs. peritonitis. Blood and peritoneal cultures pending. Pt is ESRD on PD, however also has functional AV fistula (w/ plan for 2hr iHD today). Day # 1 of antimicrobial therapy. Plan Vancomycin * AUC/LETI is the preferred PK/PD target for vancomycin, however plan to dose by levels in setting of iHD * S/p vanc 1500mg (~ 21mg/kg) IV X 1 loading dose ~ 1100 today * Orders for iHD ~1500 this afternoon * Random level ordered for 03/13 with AM labs to guide further dosing Zosyn * Zosyn 3.375gm IV extended interval q12h for iHD Pharmacy will continue to follow and will adjust dose/frequency as necessary. Thank you.
[2022-03-12] MEDS ORDERED: INSULIN ASPART PER UNIT SC SCH (16:30)
[2022-03-12] MEDS ORDERED: LABETALOL HCL IV 5 MG/ML 20ML IV PRN (17:05)
[2022-03-12] MEDS: PIPERACILLIN/TAZOBACTAM 3.375 GM in DEXTROSE 5% 100 ML IV SCH (19:54)
[2022-03-12] MEDS: HEPARIN SOD 5,000 UNIT/0.5 ML VIAL SQ SCH (19:54)
[2022-03-12] MEDS: MoRPHine SULFATE 2 MG/ML CARP IV PRN (20:03)
[2022-03-12] MEDS ORDERED: INSULIN GLARGINE SOLOSTAR 100 UNITS/ML 3 ML PEN SC SCH (21:00)
[2022-03-12 21:01] LABS: Appearance Peritoneal Fluid CLEAR; Color Peritoneal Fluid STRAW; RBC Peritoneal Fluid (A) < 3000 /uL; WBC Peritoneal Fluid (A) 67 /ul (0-300)
[2022-03-12 21:46] LABS: Eosinophils, Fluid 2 %; Lymphocytes, Fluid 14 %; Mono,Macrophage,Mesothelial 66 %; Neutrophils, Fluid 18 %
[2022-03-13] MEDS: INSULIN ASPART PER UNIT SC SCH ×4 (00:27→18:12)
[2022-03-13] MEDS: MoRPHine SULFATE 2 MG/ML CARP IV PRN (03:02)
--- NOTE | 2022-03-13 06:15 | Electrocardiogram Report ---
Test Reason : Blood Pressure : / mmHG Vent. Rate : 081 BPM Atrial Rate : 081 BPM P-R Int : 180 ms QRS Dur : 150 ms QT Int : 468 ms P-R-T Axes : 057 -70 -31 degrees QTc Int : 543 ms Sinus rhythm with Premature atrial complexes Right bundle branch block Left anterior fascicular block Bifascicular block Voltage criteria for left ventricular hypertrophy Cannot rule out Septal infarct (cited on or before 12-MAR-2022) Abnormal ECG When compared with ECG of 01-FEB-2022 05:22, Premature atrial complexes are now Present Septal infarct is now Present Confirmed by Juan Manuel Vega ([id number]) on 03/13/2022 6:14:34 AM Referred By: REFERRED SELF Confirmed By:Juan Manuel Vega
[2022-03-13 06:41] LABS: Hematocrit (blood only) 34.8 % (42-52); Hemoglobin 10.9 g/dL (14.0-18.0); Mean Corpuscular Hemoglobin 30.5 pg (25-34); Mean Corpuscular Hgb Conc 31.3 g/dL (32-36); Mean Corpuscular Volume 97.5 fL (80-100); Mean Platelet Volume 10.8 fL (7.4-10.4); Platelet Count 158 K/uL (130-400); RDW Coefficient of Variation 13.5 % (11.5-14.5); RDW Standard Deviation 47.9 fL (36.4-46.3); Red Blood Count 3.57 M/uL (4.7-6.1); White Blood Count 10.38 K/uL (4.8-10.8)
--- NOTE | 2022-03-13 06:49 | XRay Report ---
KUB HISTORY: Status post placement of an enteric tube ng placement COMPARISON: CT abdomen and pelvis of same day FINDINGS: An enteric tube distal tip projects over the stomach. Surgical clips of the right upper huey drant abdomen. Numerous dilated air-filled loops of small bowel are noted. Cardiomegaly with aortic v alvular endograft. No renal calculi. No ureteral calculi. No pneumoperitoneum or pneumatosis. No fra cture. IMPRESSION: 1. Distal tip of enteric tube projects over the stomach. 2. Small bowel obstruction. ACT 112: Negative or not required by law. The above report was generated using voice recognition software. It may contain grammatical, syntax o r spelling errors. Electronically signed by: Malik Cooney M.D. 03/13/2022 6:47 AM
[2022-03-13 06:59] LABS: BUN Creatinine Ratio 8.7 (10-20); Calcium 8.7 mg/dl (8.5-10.1); Chol HDL Ratio 2.5 (0-5); Creatinine Clr Calc Pharmacy 13.7 ml/min; Est GFR (African American) 13.9 ml/min; Magnesium 1.9 mg/dl (1.7-2.4); Potassium 4.1 mmol/L (3.5-5.1)
[2022-03-13] MEDS: PIPERACILLIN/TAZOBACTAM 3.375 GM in DEXTROSE 5% 100 ML IV SCH ×2 (07:24→20:43)
[2022-03-13] MEDS: FLUTICASONE/VILANTEROL 200/25MCG 14 PUFFS/INHALER INH SCH (07:26)
[2022-03-13] MEDS: HEPARIN SOD 5,000 UNIT/0.5 ML VIAL SQ SCH ×2 (07:26→20:43)
[2022-03-13 07:33] LABS: Troponin I High Sensitivity 69.1 pg/ml (0-20)
--- NOTE | 2022-03-13 08:28 | Cardiology Consultation ---
Date of Consultation March 13, 2022 Assessment & Plan (1) Elevated troponin I level: (2) Severe calcific aortic valve stenosis: (3) Peritoneal dialysis catheter in situ: (4) SBO (small bowel obstruction): (5) Abdominal pain: Stable s/p TAVR no cardiac component to SBO resume outpatient meds once tolerating NPO no new wall motion abnormality on echo cardiac cath in February 2022 without significant disease History of Present Illness Reason for Consultation: elevated troponin Requesting Physician: MEG Attending Physician: Delta Larry MD History of Present Illness 77 yo male, approximately 1 month s/p acute TAVR. Presents to [facility] on 03/12/22 with complaint of abdominal pain. Found to have a SBO. Denies any cardiac complaints of chest pain, sob, palpitations, lightheadedness or dizziness. Now feeling much better after NG tube placed. Pertinent History Severe aortic valve stenosis S/P TAVR # 26 mm Artis Vlaentina S3 Ultra valve (underinflated by one cc) by Dr. Moulton 02/16/2022 Dyslipidemia Diabetes mellitus, type 2 ESRD on PD Tobacco use COPD BPH Allergies Allergy/AdvReac Type Severity Reaction Status Date / Time No Known Allergies Allergy Verified 03/12/22 10:58 Home Medications Medication Instructions Recorded Confirmed Type atorvastatin 40 mg tablet 40 mg PO QPM 07/31/19 03/12/22 History cholecalciferol (vitamin D3) 25 1,000 unit PO QAM 07/31/19 03/12/22 History mcg (1,000 unit) tablet (Vitamin D3) citalopram 40 mg tablet 40 mg PO QPM 07/31/19 03/12/22 History finasteride 5 mg tablet 5 mg PO HS 07/31/19 03/12/22 History linagliptin 5 mg tablet (Tradjenta) 5 mg PO QAM 07/31/19 03/12/22 History tamsulosin 0.4 mg capsule 0.4 mg PO HS 07/31/19 03/12/22 History albuterol sulfate 90 mcg/actuation 2 puff INHALATION Q6H PRN 12/16/19 03/12/22 History aerosol inhaler aspirin 81 mg tablet,delayed 81 mg PO QAM 01/06/20 03/12/22 History release polyethylene glycol 3350 17 gram 17 g PO DAILY PRN #10 ea 01/23/20 03/12/22 Rx oral powder packet (Miralax) torsemide 20 mg tablet 40 mg PO QAM 08/14/20 03/12/22 History calcitriol 0.25 mcg capsule 0.25 mcg PO QAM 01/31/22 03/12/22 History sevelamer carbonate 800 mg tablet 2,400 mg PO TIDM 01/31/22 03/12/22 History epoetin beta, methoxy peg 30 30 mcg IV UNKNOWN 03/12/22 03/12/22 History mcg/0.3 mL injection syringe (Mircera) fluticasone furoate 200 1 inh INHALATION DAILY 03/12/22 03/12/22 History mcg-vilanterol 25 mcg/dose inhalation powder (Breo Ellipta) Patient History Medical History Anxiety and depression AV fistula BPH (benign prostatic hyperplasia) Chronic anemia CKD (chronic kidney disease) stage 5, GFR less than 15 ml/min Diabetes mellitus, type 2 ESRD (end stage renal disease) on dialysis Hyperlipidemia Hypertension Osteoarthritis PAD (peripheral artery disease) Peritoneal dialysis catheter in situ Tobacco abuse Tobacco use Surgical History Cardiac murmur History of cataract surgery RT/LEFT History of cholecystectomy History of colonoscopy History of esophagogastroduodenoscopy (EGD) History of procedure for peripheral vascular disease LEFT LEG (STENT PLACED/REASON FOR TAKING PLAVIX) History of tooth extraction Family History Brother Cancer Social History Smoking Status: Current every day smoker Tobacco Type: Cigarettes Cigarettes Per Day: 10; Second Hand Exposure: No; Do You Dip or Chew Tobacco: No; Tobacco Cessation Education Requested by Patient: No Hx Alcohol Use: No Hx Substance Use: No Preferred Language: Eritrean Communication Ability: Effective Audience Development Manager Required: No Beliefs That Will Affect Care: None Current Living Situation: Alone How many Children do You have: 1 Other Information That Helps Us Care for You: No Feels Safe at Home: Yes Safety Concerns: Feels Safe At This Time Assistive Devices: Walker Review of Systems Review of Systems: All systems reviewed & are unremarkable except as noted in HPI & below Physical Exam Physical Exam: General: Awake, alert and oriented x 3. No acute distress. HEENT: Normocephalic, atraumatic. Pupils equal, round and reactive to light and accommodation. Extraocular muscles are intact. Anicteric sclera. Moist mucous membranes. Neck: No JVD. No bruit. Cardiovascular: Regular. Positive S-4. Normal S-1 and S-2. No S-3. 3/6 mid to late systolic ejection murmur, greatest at the right sternal border, second intercostal space with radiation to the bilateral carotids. No rubs. Pulmonary: Clear to auscultation bilaterally. No rales, rhonchi, or wheezing. Abdomen: Bowel sounds x 4, soft. No rebound, guarding or tenderness. No organomegaly. Extremities: No clubbing, cyanosis or edema. +2 pedal pulses bilaterally. Skin: Warm and dry. Results & Data ([facility]) Vital Signs (Past 12 Hours) Vital Signs Temp Pulse Pulse Pulse Resp BP Pulse Ox 03/13/22 07:46 77 03/13/22 07:30 37.0 C 71 18 158/69 H 96 03/13/22 04:07 36.7 C 73 18 180/77 H 95 03/12/22 22:20 83 03/12/22 21:58 36.8 C 78 20 147/68 H 96 03/12/22 21:04 79 18 154/71 H 96 (1) Abdominal pain Abdominal location: unspecified location Qualified Code(s): R10.9 - Unspecified abdominal pain
[2022-03-13] MEDS ORDERED: SODIUM CHLORIDE 0.9% 1000ML 1,000 ML IV PRN ×2 (09:48→10:26)
--- NOTE | 2022-03-13 12:53 | Nephrology Progress Note ---
Date of Service March 13, 2022 Assessment & Plan (1) ESRD (end stage renal disease) on dialysis: Plan: Last dialysis 2 days back; has functional AV fistula in addition to PD catheter. -no evidence of PD peritonitis -will rest peritoneum while concern for abd pain/SBP persists -plan 4 hrs HD today to optimize patient then MWF HD while in house until SBO resolves >> no heparin and liberal BP parameters; up to 2L fluid removal possibly -plan to return to PD before/at d/c >>only finisher machine should manipulate/access PD catheter unless d/w nephrology MD -hold torsemide >>>STRICT I/O >> hoping his kidneys will continue to function despite IV contrast (2) SBO (small bowel obstruction): Plan: for conservative management currently with NGT, abtx; gen surgery following, vascular aware but not evaluating at this time NPO > continue NS at 20 mL/hr in this dialysis pt; will actually remove fluid w/ HD w/ liberal BP parameters (3) Abdominal pain: Plan: presume from SBO; ischemic bowel in differential >>PD fluid culture pending BUT/AND PD fluid cell count/ GS not c/w peritonitis Admission and Anticipated Discharge Date Admission Date: March 12, 2022 Subjective no interval events; no sob; thinks abd pain a bit better; has not moved bowels; ++thirst. no edema, no uncontrolled musculoskeletal pain; tolerated HD yesterday giancarlo w/o issue Review of Systems Review of Systems: All systems reviewed & are unremarkable except as noted in Subjective Physical Exam Constitutional: well developed, average body habitus and cooperative; no acute distress Eyes: EOM intact bilaterally ENMT: Ears: no external ear abnormality Nose: no external nose abnormality Mouth: + dry oral mucous membranes NGT in place Neck: no nuchal rigidity Respiratory: normal respiratory effort Auscultation: + diminished lung sounds Cardiovascular: Rate/Rhythm: regular rate and regular rhythm Heart Sounds: + murmur Extremities: + AV fistula; no edema Gastrointestinal (Abdomen): Inspection/Auscultation: normal bowel sounds Percussion/Palpation: + abdomen tender, + guarding and abdomen soft Musculoskeletal: Extremities: strength 5/5 throughout Skin: no rashes, warm and dry Neurologic: albarran, fluent speech, no tremor Psychiatric: Orientation: oriented x 3 Results & Data ([facility]) Vital Signs (Past 12 Hours) Vital Signs Temp Pulse Pulse Pulse Resp BP BP 03/13/22 11:40 72 109/62 03/13/22 11:20 68 142/69 H 03/13/22 11:11 72 171/79 H 03/13/22 11:09 36.9 C 71 03/13/22 07:46 77 03/13/22 07:30 37.0 C 71 18 158/69 H 03/13/22 04:07 36.7 C 73 18 180/77 H Pulse Ox 03/13/22 11:40 03/13/22 11:20 03/13/22 11:11 03/13/22 11:09 03/13/22 07:46 03/13/22 07:30 96 03/13/22 04:07 95 Laboratory Results 03/13/22 06:02 03/13/22 06:02 (1) Abdominal pain Abdominal location: unspecified location Qualified Code(s): R10.9 - Unspeci fied abdominal pain
--- NOTE | 2022-03-13 15:11 | Surgery Progress Note ---
Date of Service March 13, 2022 Assessment & Plan (1) Abdominal pain: Plan: pt is a 77 year-old male who presents to ER with one day history acute abdominal pain, CT Scan- IMPRESSION: 1. Findings consistent with a moderate to high-grade small bowel obstruction. Dilatation of the majority of the small bowel without transition point within the mid ileum, within the right upper quadrant. Decompressed distal small bowel. Associated mesenteric stranding. Small amount of abdominal and pelvic ascites. 2. Peritoneal dialysis catheter coiled within the pelvis. IMP: abdominal pain, SBO, ischemic bowel? plan, base on pt is S/P TAVR, recommend to have CTA abdomen with IV contrast to R/O emboli mesenteric artery occlusion, ischemic bowel, D/W benefits, risks and alternatives of the CT A with pt and his family member, they agree with the CTA, D/W ER attending, NG tube insertion, IV fluid, IV antibiotic, control pain, will F/U CTA abdomen, IMPRESSION: 1. Findings consistent with a high-grade small bowel obstruction with transition point within the right upper quadrant, as detailed above. Mesenteric infiltration and ascites are nonspecific although given the clinical history, bowel ischemia cannot be excluded. No pneumatosis, free air or portal venous gas. Surgical consultation is recommended. 2. Extensive aortoiliac atherosclerotic plaque. 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 Patent celiac axis. No embolus identified. 3. Multiple additional findings, as above. plan, may need consult vascular surgeon to R/O ischemic bowel, and hospitalist will admit to hospital , conservative treatment, repeat laps and KUB in morning, pt feels better now, less abdominal pain, repeat lactate 2.8 from 5, no emergent surgery indication now, but may need surgery treatment if pt 's symptoms worse, pt and family member understood, will F/U, D/W ER attending, 03/13/2022 3:12PM F/U SBO, pt is doing better, no abdominal pain, wait to pass gas, continue conservative treatment, will F/U, (2) SBO (small bowel obstruction): Plan: see above Admission and Anticipated Discharge Date Admission Date: March 12, 2022 Subjective no interval events; no sob; thinks abd pain a bit better; has not moved bowels; ++thirst. no edema, no uncontrolled musculoskeletal pain; tolerated HD yesterday giancarlo w/o issue 03/13/2022 3:09PM Dr. Prieto, F/U SBO, pt is doing fine, no abdominal pain, no fever, not pass gas yet, Normal WBC, KUB-SBO, NG - 500ml, Review of Systems Constitutional: as per Subjective / HPI Eyes: as per Subjective / HPI Respiratory: as per Subjective / HPI acute respiratory failure with hypoxia Cardiovascular: Additional Comments: CHF, TAVR, PAD, HTN, hyperlipidemia Gastrointestinal: S/P cholecystectomy, SBO, gastritis Genitourinary: + problem reported (renal failure, on peritoneal catheter dialysis) Physical Exam Constitutional: WD/WN, vitals as above Eyes: PERRL, conjunctivae normal, anicteric sclerae Neck: trachea midline, no thyromegaly Respiratory: normal respiratory effort, lungs clear to auscultation Cardiovascular: RRR, no murmur, no edema Gastrointestinal (Abdomen): soft, mild distend, no tenderness, BS +, Musculoskeletal: no cyanosis or clubbing, extremities motor strength 5/5 Neurologic: patellar DTR's 2+ bilat, sensation intact Psychiatric: A+Ox3, euthymic affect Results & Data ([facility]) Vital Signs (Past 12 Hours) Vital Signs Temp Pulse Pulse Pulse Resp BP BP 03/13/22 13:20 90 113/69 03/13/22 13:00 86 108/63 03/13/22 12:40 85 124/65 03/13/22 12:20 83 127/73 03/13/22 12:00 79 149/65 H 03/13/22 11:40 72 109/62 03/13/22 11:20 68 142/69 H 03/13/22 11:11 72 171/79 H 03/13/22 11:09 36.9 C 71 03/13/22 07:46 77 03/13/22 07:30 37.0 C 71 18 158/69 H 03/13/22 04:07 36.7 C 73 18 180/77 H Pulse Ox 03/13/22 13:20 03/13/22 13:00 03/13/22 12:40 03/13/22 12:20 03/13/22 12:00 03/13/22 11:40 03/13/22 11:20 03/13/22 11:11 03/13/22 11:09 03/13/22 07:46 03/13/22 07:30 96 03/13/22 04:07 95 Laboratory Results Abnormal lab results 03/12/22 03/12/22 03/12/22 Range/Units 16:18 17:58 22:44 RBC (4.7-6.1) M/uL Hgb (14.0-18.0) g/dL Hct (42-52) % MCHC (32-36) g/dL RDW Std Deviation (36.4-46.3) fL MPV (7.4-10.4) fL BUN (6-23) mg/dl Creatinine (0.6-1.4) mg/dl BUN/Creatinine Ratio (10-20) Glucose (70-99(Fasting)) mg/dl POC Glucose 139 H (70-99) mg/dl Phosphorus (2.5-4.9) mg/dl Troponin I High Sens 59.3 H* D 60.9 H* (0-20) pg/ml 03/13/22 03/13/22 03/13/22 Range/Units 00:24 05:58 06:02 RBC 3.57 L (4.7-6.1) M/uL Hgb 10.9 L (14.0-18.0) g/dL Hct 34.8 L (42-52) % MCHC 31.3 L (32-36) g/dL RDW Std Deviation 47.9 H (36.4-46.3) fL MPV 10.8 H (7.4-10.4) fL BUN (6-23) mg/dl Creatinine (0.6-1.4) mg/dl BUN/Creatinine Ratio (10-20) Glucose (70-99(Fasting)) mg/dl POC Glucose 135 H 128 H (70-99) mg/dl Phosphorus (2.5-4.9) mg/dl Troponin I High Sens (0-20) pg/ml 03/13/22 03/13/22 Range/Units 06:02 12:16 RBC (4.7-6.1) M/uL Hgb (14.0-18.0) g/dL Hct (42-52) % MCHC (32-36) g/dL RDW Std Deviation (36.4-46.3) fL MPV (7.4-10.4) fL BUN 38 H D (6-23) mg/dl Creatinine 4.37 H D (0.6-1.4) mg/dl BUN/Creatinine Ratio 8.7 L (10-20) Glucose 137 H (70-99(Fasting)) mg/dl POC Glucose 116 H (70-99) mg/dl Phosphorus 6.0 H (2.5-4.9) mg/dl Troponin I High Sens 69.1 H* (0-20) pg/ml (1) Abdominal pain Abdominal location: unspecified location Qualified Code(s): R10.9 - Unspecified abdominal pain
--- NOTE | 2022-03-13 15:24 | Hospitalist Progress Note ---
Date of Service March 13, 2022 Assessment & Plan (1) SBO (small bowel obstruction): Plan: Small bowel obstruction Suspected ischemic bowel --ABD CTA:Findings consistent with a high-grade small bowel obstruction with transition point within the right upper quadrant, as detailed above. Mesenteric infiltration and ascites are nonspecific although given the clinical history, bowel ischemia cannot be excluded. No pneumatosis, free air or portal venous gas. Surgical consultation is recommended. Extensive aortoiliac atherosclerotic plaque. 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 Patent celiac axis. No embolus identified. --ABD CT:Findings consistent with a moderate to high-grade small bowel obstruction. Dilatation of the majority of the small bowel without transition point within the mid ileum, within the right upper quadrant. Decompressed distal small bowel. Associated mesenteric stranding. Small amount of abdominal and pelvic ascites. Peritoneal dialysis catheter coiled within the pelvis. ---Lactic acidosis improved with IV fluids --Appreciate Surgery Input --Continue NG tube, bowel rest, IV fluids --Empirically on antibiotics Vanco+ Zosyn >>Zosyn --Follow up cultures Elevated troponin Likely due to ESRD S/P TAVR ECHO:No regional wall motion abnormality, EF: 55-60%, TAVR functioning appropriately, Grade I diastolic dysfunction Appreciate Cardiology Input Denies any angina symptoms Resume home PO meds as able ESRD No signs of PD peritonitis as per Nephrology Appreciate Nephrology Dialysis as per Nephro Follow up peritoneal fluid culture DM II HbA1C:6.January Hold home regimen ISS for now Monitor BGs DVT Px: Heparin SQ Code Status Full code Admission and Anticipated Discharge Date Admission Date: March 12, 2022 Subjective Patient is seen and examined at bedside Is having dialysis during my encounter Abd pain much improved Had small BM yesterday and + flatus today Also denies any chest pain, dyspnea, nausea, dizziness Review of Systems Review of Systems: All systems reviewed & are unremarkable except as noted in Subjective Physical Exam Physical Exam: Physical Exam: Vitals signs as noted above General Appearance:Moderately built and nourished, no apparent distress Head: normocephalic, Atraumatic Eyes: normal inspection, EOMI Neck: supple, Trachea midline Respiratory/Chest: Decreased breath sounds, CTA, No accessory muscle use Cardiovascular: S1, S2, No murmur Abdomen/GI:Soft, mildly distended, Non tender, decreased Bowel sounds, + PD Cath Extremities/Musculoskeletal:normal inspection, no edema Neurologic/Psych:AAOX3, grossly no focal neurological deficits Skin: normal color, warm Results & Data Results & Data ([facility]) Vital Signs (Past 12 Hours) Vital Signs Temp Pulse Pulse Pulse Resp BP BP 03/13/22 13:20 90 113/69 03/13/22 13:00 86 108/63 03/13/22 12:40 85 124/65 03/13/22 12:20 83 127/73 03/13/22 12:00 79 149/65 H 03/13/22 11:40 72 109/62 03/13/22 11:20 68 142/69 H 03/13/22 11:11 72 171/79 H 03/13/22 11:09 36.9 C 71 03/13/22 07:46 77 03/13/22 07:30 37.0 C 71 18 158/69 H 03/13/22 04:07 36.7 C 73 18 180/77 H Pulse Ox 03/13/22 13:20 03/13/22 13:00 03/13/22 12:40 03/13/22 12:20 03/13/22 12:00 03/13/22 11:40 03/13/22 11:20 03/13/22 11:11 03/13/22 11:09 03/13/22 07:46 03/13/22 07:30 96 03/13/22 04:07 95 Laboratory Results Short CBC 03/13/22 Range/Units 06:02 WBC 10.38 (4.8-10.8) K/uL Hgb 10.9 L (14.0-18.0) g/dL Hct 34.8 L (42-52) % Plt Count 158 (130-400) K/uL BMP 03/13/22 06:02 Sodium 138 Potassium 4.1 Chloride 101 Carbon Dioxide 26 BUN 38 H D Creatinine 4.37 H D Glucose 137 H Calcium 8.7 Urine 03/12/22 Range/Units 18:15 Urine Color Cancelled Urine Appearance Cancelled Urine pH Cancelled Ur Specific [place] Cancelled Urine Protein Cancelled Urine Glucose (UA) Cancelled
[2022-03-13] MEDS ORDERED: PROMETHAZINE HCL 6.25 MG in SODIUM CHLORIDE 0.9% 50 ML IV PRN (17:35)
--- NOTE | 2022-03-13 18:19 | XRay Report ---
KUB HISTORY: Evaluate NG tube placement. COMPARISON: KUB 03/12/2022. FINDINGS: Nasogastric tube terminates in the body the stomach. This is unchanged. Mildly dilated gas- filled loops of small bowel have slightly improved. Mild cardiomegaly and a cardiac valve prosthesis are again noted. No renal calculi. No ureteral calculi. No pneumoperitoneum or pneumatosis. IMPRESSION: Nasogastric tube terminates in the stomach. This is unchanged in position. ACT 112: Negative or not required by law. Electronically signed by: Tim Esteves M.D. 03/13/2022 6:17 PM
[2022-03-13] MEDS ORDERED: OLANZapine 10 MG/2.1 ML SDV IM PRN (23:12)
[2022-03-14] MEDS: INSULIN ASPART PER UNIT SC SCH ×5 (00:34→17:19)
[2022-03-14 04:14] LABS: Hematocrit (blood only) 37.7 % (42-52); Hemoglobin 11.8 g/dL (14.0-18.0); Mean Corpuscular Hemoglobin 31.7 pg (25-34); Mean Corpuscular Hgb Conc 31.3 g/dL (32-36); Mean Corpuscular Volume 101.3 fL (80-100); Mean Platelet Volume 10.9 fL (7.4-10.4); Platelet Count 140 K/uL (130-400); RDW Coefficient of Variation 13.2 % (11.5-14.5); RDW Standard Deviation 49.3 fL (36.4-46.3); Red Blood Count 3.72 M/uL (4.7-6.1); White Blood Count 9.13 K/uL (4.8-10.8)
[2022-03-14 04:49] LABS: BUN Creatinine Ratio 7.7 (10-20); Calcium 9.2 mg/dl (8.5-10.1); Est GFR (Non-African American) 15.6 ml/min; Potassium 3.8 mmol/L (3.5-5.1)
[2022-03-14] MEDS: PIPERACILLIN/TAZOBACTAM 3.375 GM in DEXTROSE 5% 100 ML IV SCH ×2 (07:32→20:41)
[2022-03-14] MEDS: FLUTICASONE/VILANTEROL 200/25MCG 14 PUFFS/INHALER INH SCH (07:33)
[2022-03-14] MEDS: HEPARIN SOD 5,000 UNIT/0.5 ML VIAL SQ SCH ×2 (07:33→20:31)
[2022-03-14] MEDS: SODIUM CHLORIDE 0.9% 1000ML 1,000 ML IV SCH (07:59)
--- NOTE | 2022-03-14 07:59 | Nephrology Progress Note ---
Date of Service March 14, 2022 Assessment & Plan (1) ESRD (end stage renal disease) on dialysis: Plan: Has functional AV fistula in addition to PD catheter. -no evidence of PD peritonitis -will rest peritoneum while SBO persists -tolerated 4hr HD yesterday w/ 1.3L fluid removal and sbp maintained > 110; next HD tomorrow or as clinical needs dictate -plan to return to PD before/at d/c >>only senior living advisor should manipulate/access PD catheter unless d/w nephrology -jamila hold torsemide >>>STRICT I/O >> hoping his kidneys will continue to function despite IV contr ast (2) SBO (small bowel obstruction): Plan: for conservative management; gen surgery following NPO > continue NS at 30 mL/hr in this dialysis pt; will actually remove fluid w/ HD w/ liberal BP parameters (3) Abdominal pain: Plan: presume from SBO; ischemic bowel in differential >>PD fluid culture pending / NGTD BUT/AND PD fluid cell count/ GS not c/w peritonitis Admission and Anticipated Discharge Date Admission Date: March 12, 2022 Subjective pulled out NGT x 2 now; states he's moved bowels but not signficant per RN; NGT was still putting out 800 + Review of Systems Review of Systems: All systems reviewed & are unremarkable except as noted in Subjective Physical Exam Constitutional: well developed, average body habitus and cooperative; no acute distress Eyes: EOM intact bilaterally ENMT: Ears: no external ear abnormality Nose: no external nose abnormality Mouth: + dry oral mucous membranes Neck: no nuchal rigidity Respiratory: normal respiratory effort and + cough Auscultation: + diminished lung sounds Cardiovascular: Rate/Rhythm: regular rate and regular rhythm Heart Sounds: + murmur Extremities: + AV fistula; no edema Gastrointestinal (Abdomen): Inspection/Auscultation: normal bowel sounds Percussion/Palpation: + abdomen tender, + guarding and abdomen soft Musculoskeletal: Extremities: strength 5/5 throughout Skin: no rashes, warm and dry Psychiatric: Orientation: oriented x 3 Insight: + limited insight Judgement: + limited judgement Results & Data ([facility]) Vital Signs (Past 12 Hours) Vital Signs Temp Pulse Pulse Pulse Resp BP Pulse Ox 03/14/22 07:24 86 03/14/22 07:18 36.5 C 78 16 166/73 H 99 03/14/22 05:03 87 03/14/22 03:06 36.8 C 89 18 176/81 H 98 03/13/22 23:04 36.8 C 86 18 165/72 H 97 Laboratory Results 03/14/22 03:35 03/14/22 03:35 (1) Abdominal pain Abdominal location: unspecified location Qualified Code(s): R10.9 - Unspecified abdominal pain
[2022-03-14] MEDS ORDERED: SOD PHOSPHATE/SOD BIPHOSPHATE ENEMA 132 ML BTL PR STA (09:35)
--- NOTE | 2022-03-14 09:39 | Surgery Progress Note ---
Date of Service March 14, 2022 Assessment & Plan (1) Abdominal pain: (2) SBO (small bowel obstruction): Plan: NGT again fell out after sneezing, 800 cc output last shift no nausea or vomiting no abdominal pain per patient not passing flatus today, last BM yesterday morning Plan: Will keep NGT out for now, NPO may have small amount of ice chips and mouth swabs Fleet enema today Will need to encourage ambulation to increase GI motility Continue medical mangaement Discussed with Dr. Prieto who agrees with above. Admission and Anticipated Discharge Date Admission Date: March 12, 2022 Subjective upon entering room, patient holding NGT by his nose. States he sneezed and it fell out Denies of abdominal pain or nausea or vomiting Not passing any gas today last bowel movement was yesterday morning abdomen feels softer today per patient Physical Exam Constitutional: WD/WN, vitals as above no acute distress Neck: normal visual inspection and trachea midline Respiratory: normal respiratory effort; no respiratory distress Gastrointestinal (Abdomen): Inspection/Auscultation: + abdomen distended (mild), + abdominal surgical scar, + abdominal surgical drain present (Peritoneal dialysis catheter present) and + hypoactive bowel sounds; + abnormal bowel sounds Percussion/Palpation: + abdomen tender (upon deep palpation in RLQ) and abdomen soft; no guarding and abdomen not rigid Skin: no rashes, warm and dry Psychiatric: Orientation: alert Results & Data ([facility]) Vital Signs (Past 12 Hours) Vital Signs Temp Pulse Pulse Pulse Resp BP Pulse Ox 03/14/22 07:24 86 03/14/22 07:18 36.5 C 78 16 166/73 H 99 03/14/22 05:03 87 03/14/22 03:06 36.8 C 89 18 176/81 H 98 03/13/22 23:04 36.8 C 86 18 165/72 H 97 Laboratory Results 03/14/22 03/14/22 03/14/22 Range/Units 07:15 05:26 03:35 WBC (4.8-10.8) K/uL RBC (4.7-6.1) M/uL Hgb (14.0-18.0) g/dL Hct (42-52) % MCV (80-100) fL MCH (25-34) pg MCHC (32-36) g/dL RDW Std Deviation (36.4-46.3) fL RDW Coeff of Danny (11.5-14.5) % Plt Count (130-400) K/uL MPV (7.4-10.4) fL Sodium 138 (136-145) mmol/L Potassium 3.8 (3.5-5.1) mmol/L Chloride 99 (98-107) mmol/L Carbon Dioxide 27 (21-32) mmol/L Anion Gap 12 H (3-11) BUN 27 H (6-23) mg/dl Creatinine 3.52 H D (0.6-1.4) mg/dl Est Cr Clr Drug Dosing 17.0 ml/min Est GFR ( Amer) 18.0 ml/min Est GFR (Non-Af Amer) 15.6 ml/min BUN/Creatinine Ratio 7.7 L (10-20) Glucose 147 H (70-99(Fasting)) mg/dl POC Glucose 165 H 167 H (70-99) mg/dl Calcium 9.2 (8.5-10.1) mg/dl 03/14/22 03/14/22 03/13/22 Range/Units 03:35 00:25 17:54 WBC 9.13 (4.8-10.8) K/uL RBC 3.72 L (4.7-6.1) M/uL Hgb 11.8 L (14.0-18.0) g/dL Hct 37.7 L (42-52) % MCV 101.3 H (80-100) fL MCH 31.7 (25-34) pg MCHC 31.3 L (32-36) g/dL RDW Std Deviation 49.3 H (36.4-46.3) fL RDW Coeff of Danyn 13.2 (11.5-14.5) % Plt Count 140 (130-400) K/uL MPV 10.9 H (7.4-10.4) fL Sodium (136-145) mmol/L Potassium (3.5-5.1) mmol/L Chloride (98-107) mmol/L Carbon Dioxide (21-32) mmol/L Anion Gap (3-11) BUN (6-23) mg/dl Creatinine (0.6-1.4) mg/dl Est Cr Clr Drug Dosing ml/min Est GFR ( Amer) ml/min Est GFR (Non-Af Amer) ml/min BUN/Creatinine Ratio (10-20) Glucose (70-99(Fasting)) mg/dl POC Glucose 130 H 128 H (70-99) mg/dl Calcium (8.5-10.1) mg/dl 03/13/22 Range/Units 12:16 WBC (4.8-10.8) K/uL RBC (4.7-6.1) M/uL Hgb (14.0-18.0) g/dL Hct (42-52) % MCV (80-100) fL MCH (25-34) pg MCHC (32-36) g/dL RDW Std Deviation (36.4-46.3) fL RDW Coeff of Danny (11.5-14.5) % Plt Count (130-400) K/uL MPV (7.4-10.4) fL Sodium (136-145) mmol/L Potassium (3.5-5.1) mmol/L Chloride (98-107) mmol/L Carbon Dioxide (21-32) mmol/L Anion Gap (3-11) BUN (6-23) mg/dl Creatinine (0.6-1.4) mg/dl Est Cr Clr Drug Dosing ml/min Est GFR ( Amer) ml/min Est GFR (Non-Af Amer) ml/min BUN/Creatinine Ratio (10-20) Glucose (70-99(Fasting)) mg/dl POC Glucose 116 H (70-99) mg/dl Calcium (8.5-10.1) mg/dl Microbiology 03/12/22 18:15 Gram Stain - Final Peritoneal dialysis fluid Aerobic and Anaerobic Culture - Preliminary No growth to date. 03/12/22 10:05 Gram Stain - Final Peritoneal Fluid Deep Wound Culture - Preliminary No growth to date. 03/12/22 11:50 Aerobic Blood Culture - Preliminary Blood No growth in Aerobic bottle after 24 hours. Anaerobic Blood Culture - Preliminary No growth in Anaerobic bottle after 24 hours. 03/12/22 09:47 Aerobic Blood Culture - Preliminary Blood No growth in Aerobic bottle after 24 hours. Anaerobic Blood Culture - Preliminary No growth in Anaerobic bottle after 24 hours. (1) Abdominal pain Abdominal location: unspecified location Qualified Code(s): R10.9 - Unspecified abdominal pain
--- NOTE | 2022-03-14 16:33 | Hospitalist Progress Note ---
Date of Service March 14, 2022 Assessment & Plan (1) SBO (small bowel obstruction): Plan: Small bowel obstruction Suspected ischemic bowel --ABD CTA:Findings consistent with a high-grade small bowel obstruction with transition point within the right upper quadrant, as detailed above. Mesenteric infiltration and ascites are nonspecific although given the clinical history, bowel ischemia cannot be excluded. No pneumatosis, free air or portal venous gas. Surgical consultation is recommended. Extensive aortoiliac atherosclerotic plaque. 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 Patent celiac axis. No embolus identified. --ABD CT:Findings consistent with a moderate to high-grade small bowel obstruction. Dilatation of the majority of the small bowel without transition point within the mid ileum, within the right upper quadrant. Decompressed distal small bowel. Associated mesenteric stranding. Small amount of abdominal and pelvic ascites. Peritoneal dialysis catheter coiled within the pelvis. ---Lactic acidosis improved with IV fluids --Appreciate Surgery Input --NG tube got dislodged, held for now --Continue bowel rest, gentle IV fluids given ESRD --Empirically on antibiotics Vanco+ Zosyn >>Zosyn --Preliminary cultures are negative --Discontinue Antibiotics as able if cultures remain negative --Enema as needed Repeat KUB in AM Elevated troponin Likely due to ESRD S/P TAVR ECHO:No regional wall motion abnormality, EF: 55-60%, TAVR functioning appropriately, Grade I diastolic dysfunction Appreciate Cardiology Input Denies any angina symptoms Resume home PO meds as able ESRD No signs of PD peritonitis as per Nephrology Appreciate Nephrology Dialysis as per Nephro Follow up peritoneal fluid culture DM II HbA1C:6.January Hold home regimen ISS for now Monitor BGs DVT Px: Heparin SQ Code Status Full code Admission and Anticipated Discharge Date Admission Date: March 12, 2022 Subjective Patient is seen and examined at bedside NG tube got dislodged due to sneezing +Flatus as per patient States feeling better Denies any nausea, vomiting, abd pain Planned to be given Enema today Denies any chest pain, dyspnea, nausea, dizziness Review of Systems Review of Systems: All systems reviewed & are unremarkable except as noted in Subjective Physical Exam Physical Exam: Physical Exam: Vitals signs as noted above General Appearance:Moderately built and nourished, no apparent distress Head: normocephalic, Atraumatic Eyes: normal inspection, EOMI Neck: supple, Trachea midline Respiratory/Chest: Decreased breath sounds, CTA, No accessory muscle use Cardiovascular: S1, S2, No murmur Abdomen/GI:Soft, mildly distended, Non tender, decreased Bowel sounds, + PD Cath Extremities/Musculoskeletal:normal inspection, no edema Neurologic/Psych:AAOX3, grossly no focal neurological deficits Skin: normal color, warm Results & Data Results & Data ([facility]) Vital Signs (Past 12 Hours) Vital Signs Temp Pulse Pulse Resp BP Pulse Ox 03/14/22 15:25 36.5 C 85 17 149/80 H 99 03/14/22 14:46 72 03/14/22 10:49 36.5 C 90 17 118/68 97 03/14/22 07:24 86 03/14/22 07:18 36.5 C 78 16 166/73 H 99 03/14/22 05:03 87 Laboratory Results Short CBC 03/14/22 Range/Units 03:35 WBC 9.13 (4.8-10.8) K/uL Hgb 11.8 L (14.0-18.0) g/dL Hct 37.7 L (42-52) % Plt Count 140 (130-400) K/uL BMP 03/14/22 03:35 Sodium 138 Potassium 3.8 Chloride 99 Carbon Dioxide 27 BUN 27 H Creatinine 3.52 H D Glucose 147 H Calcium 9.2
[2022-03-15] MEDS: INSULIN ASPART PER UNIT SC SCH ×3 (05:59→17:21)
[2022-03-15 07:38] LABS: Hematocrit (blood only) 35.7 % (42-52); Hemoglobin 11.2 g/dL (14.0-18.0); Mean Corpuscular Hemoglobin 31.5 pg (25-34); Mean Corpuscular Hgb Conc 31.4 g/dL (32-36); Mean Corpuscular Volume 100.6 fL (80-100); Mean Platelet Volume 10.5 fL (7.4-10.4); Platelet Count 138 K/uL (130-400); RDW Coefficient of Variation 13.1 % (11.5-14.5); RDW Standard Deviation 48.4 fL (36.4-46.3); Red Blood Count 3.55 M/uL (4.7-6.1); White Blood Count 10.41 K/uL (4.8-10.8)
[2022-03-15] MEDS ORDERED: SODIUM CHLORIDE 0.9% 1000ML 1,000 ML IV PRN (07:50)
[2022-03-15] MEDS ORDERED: HEPARIN SOD (PORCINE) 1000 UNIT/ML IV ONE (07:58)
[2022-03-15] MEDS: FLUTICASONE/VILANTEROL 200/25MCG 14 PUFFS/INHALER INH SCH (08:08)
[2022-03-15] MEDS: HEPARIN SOD 5,000 UNIT/0.5 ML VIAL SQ SCH (08:08)
[2022-03-15] MEDS: SODIUM CHLORIDE 0.9% 1000ML 1,000 ML IV SCH (08:09)
--- NOTE | 2022-03-15 08:37 | XRay Report ---
KUB HISTORY: Acute generalized abdominal pain with reported small bowel obstruction SBO COMPARISON: KUB 03/13/2022, CTA abdomen and pelvis 03/12/2022. FINDINGS: Interval removal of the enteric tube. A catheter coils over the midline pelvis. Numerous di stended air-filled loops of small bowel measure up to 5.1 cm and appears similar to the prior CT stud y. Cholecystectomy. No renal calculi. No ureteral calculi. No pneumoperitoneum or pneumatosis. No fr acture. IMPRESSION: Persistent small bowel obstruction. Continued follow-up is needed. ACT 112: Negative or not required by law. The above report was generated using voice recognition software. It may contain grammatical, syntax o r spelling errors. Electronically signed by: Malik Cooney M.D. 03/15/2022 8:36 AM
[2022-03-15 09:01] LABS: BUN Creatinine Ratio 8.7 (10-20); Calcium 8.9 mg/dl (8.5-10.1); Creatinine Clr Calc Pharmacy 10.2 ml/min; Est GFR (African American) 9.8 ml/min; Est GFR (Non-African American) 8.4 ml/min; Potassium 3.7 mmol/L (3.5-5.1)
[2022-03-15] MEDS ORDERED: MINERAL OIL ENEMA 133 ML BTL PR ONE (09:07)
--- NOTE | 2022-03-15 09:28 | Surgery Progress Note ---
Date of Service March 15, 2022 Assessment & Plan (1) Abdominal pain: (2) SBO (small bowel obstruction): Plan: Persistent, dilated SB up to 5 cm on KUB this am Abdomen is distended but nontender and no peritoneal signs on exam Asymptomatic per patient Plan: Replace NGT to LIS NPO Bowel rest Mineral oil enema needs OOB to chair and ambulate with assistance to increase GI motility Continue current medical management Dr. Prieto has seen and examined pt, agrees with above. Admission and Anticipated Discharge Date Admission Date: March 12, 2022 Subjective Denies of any abdominal pain, nausea, vomiting Denies of feeling bloated Not passing any gas or bowel movement Has not been up and walking Physical Exam Constitutional: WD/WN, vitals as above Neck: normal visual inspection and trachea midline Respiratory: normal respiratory effort; no respiratory distress and no labored breathing Gastrointestinal (Abdomen): Inspection/Auscultation: + abdomen distended (moderate), + abdominal surgical scar (RUQ) and + abdominal surgical drain present (Peritoneal diaylsis catheter present) Percussion/Palpation: abdomen soft and + hepatosplenomegaly; abdomen nontender, no guarding, abdomen not rigid and abdomen not firm Skin: no rashes, warm and dry Psychiatric: Orientation: alert and oriented x 3 Results & Data ([facility]) Vital Signs (Past 12 Hours) Vital Signs Temp Pulse Pulse Pulse Resp BP Pulse Ox 03/15/22 06:59 36.5 C 71 18 186/72 H 97 03/14/22 23:05 36.4 C L 86 20 155/84 H 98 03/14/22 22:18 83 Laboratory Results 03/15/22 03/15/22 03/15/22 Range/Units 07:10 07:10 05:45 WBC 10.41 (4.8-10.8) K/uL RBC 3.55 L (4.7-6.1) M/uL Hgb 11.2 L (14.0-18.0) g/dL Hct 35.7 L (42-52) % MCV 100.6 H (80-100) fL MCH 31.5 (25-34) pg MCHC 31.4 L (32-36) g/dL RDW Std Deviation 48.4 H (36.4-46.3) fL RDW Coeff of Danny 13.1 (11.5-14.5) % Plt Count 138 (130-400) K/uL MPV 10.5 H (7.4-10.4) fL Sodium 138 (136-145) mmol/L Potassium 3.7 (3.5-5.1) mmol/L Chloride 97 L (98-107) mmol/L Carbon Dioxide 27 (21-32) mmol/L Anion Gap 14 H (3-11) BUN 51 H D (6-23) mg/dl Creatinine 5.85 H* D (0.6-1.4) mg/dl Est Cr Clr Drug Dosing 10.2 ml/min Est GFR ( Amer) 9.8 ml/min Est GFR (Non-Af Amer) 8.4 ml/min BUN/Creatinine Ratio 8.7 L (10-20) Glucose 126 H (70-99(Fasting)) mg/dl POC Glucose 121 H (70-99) mg/dl Calcium 8.9 (8.5-10.1) mg/dl 03/14/22 03/14/22 03/14/22 Range/Units 20:32 16:06 11:12 WBC (4.8-10.8) K/uL RBC (4.7-6.1) M/uL Hgb (14.0-18.0) g/dL Hct (42-52) % MCV (80-100) fL MCH (25-34) pg MCHC (32-36) g/dL RDW Std Deviation (36.4-46.3) fL RDW Coeff of Danny (11.5-14.5) % Plt Count (130-400) K/uL MPV (7.4-10.4) fL Sodium (136-145) mmol/L Potassium (3.5-5.1) mmol/L Chloride (98-107) mmol/L Carbon Dioxide (21-32) mmol/L Anion Gap (3-11) BUN (6-23) mg/dl Creatinine (0.6-1.4) mg/dl Est Cr Clr Drug Dosing ml/min Est GFR ( Amer) ml/min Est GFR (Non-Af Amer) ml/min BUN/Creatinine Ratio (10-20) Glucose (70-99(Fasting)) mg/dl POC Glucose 142 H 160 H 173 H (70-99) mg/dl Calcium (8.5-10.1) mg/dl Diagnostic Findings KUB 03/15/2022 HISTORY: Acute generalized abdominal pain with reported small bowel obstruction SBO COMPARISON: KUB 03/13/2022, CTA abdomen and pelvis 03/12/2022. FINDINGS: Interval removal of the enteric tube. A catheter coils over the midline pelvis. Numerous distended air-filled loops of small bowel measure up to 5.1 cm and appears similar to the prior CT study. Cholecystectomy. No renal calculi. No ureteral calculi. No pneumoperitoneum or pneumatosis. No fracture. IMPRESSION: Persistent small bowel obstruction. Continued follow-up is needed. (1) Abdominal pain Abdominal location: unspecified location Qualified Code(s): R10.9 - Unspecified abdominal pain
--- NOTE | 2022-03-15 10:18 | XRay Report ---
XR KUB/Abdomen 1 view CLINICAL HISTORY: NG TUBE PLACEMENT TECHNIQUE: 1 view of the abdomen was obtained. Comparison: Comparison is made to abdomen radiograph 03/15/2022 at 0845 hours FINDINGS: Enteric tube terminates in the stomach. Unchanged appearance of aortic valvular prosthesis and right upper quadrant cholecystectomy clips. The osseous structures are grossly unremarkable. Multiple dilat ed loops of small bowel are again seen measuring up to 53 mm. A moderate amount of stool is noted wit hin the large bowel. IMPRESSION: Satisfactory position of enteric tube. Redemonstration of small bowel obstruction. ACT 112: Negative or not required by law. Electronically signed by: Brett Garcia M.D. 03/15/2022 10:16 AM
[2022-03-15] MEDS ORDERED: PANTOprazole 40 MG in SYRINGE 0 ML IV SCH (11:45)
--- NOTE | 2022-03-15 12:01 | Hospitalist Progress Note ---
Date of Service March 15, 2022 Assessment & Plan (1) SBO (small bowel obstruction): Plan: Small bowel obstruction Suspected ischemic bowel --ABD CTA:Findings consistent with a high-grade small bowel obstruction with transition point within the right upper quadrant, as detailed above. Mesenteric infiltration and ascites are nonspecific although given the clinical history, bowel ischemia cannot be excluded. No pneumatosis, free air or portal venous gas. Surgical consultation is recommended. Extensive aortoiliac atherosclerotic plaque. 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 Patent celiac axis. No embolus identified. --ABD CT:Findings consistent with a moderate to high-grade small bowel obstruction. Dilatation of the majority of the small bowel without transition point within the mid ileum, within the right upper quadrant. Decompressed distal small bowel. Associated mesenteric stranding. Small amount of abdominal and pelvic ascites. Peritoneal dialysis catheter coiled within the pelvis. --Had Lactic acidosis which improved with IV fluids NGT now draining coffee ground fluid. Increased output. RN reported drainage was bilous till today Concern for worsening obstruction +/-ischemia IV PPI bid started Discussed with GI Given non improvement on conservative management, I discussed with Surgeon Dr Conner ERNANDEZ still showing obstruction Surgery will discuss with daughter and plan for possible OR Continue strict npo Get CBC ESRD No signs of PD peritonitis based on culture/analysis Empirical antibiotics stopped Nephrology on board Not getting PD for now for bowel rest in view of SBO Continue HD per nephro Elevated troponin Likely due to ESRD S/P TAVR ECHO:No regional wall motion abnormality, EF: 55-60%, TAVR functioning appropriately, Grade I diastolic dysfunction Appreciate Cardiology Input Denies any angina symptoms DM II HbA1C:6.January Hold home regimen ISS for now Monitor BGs DVT Px: Heparin SQ Code Status Full code Admission and Anticipated Discharge Date Admission Date: March 12, 2022 Subjective Patient seen and examined. Patient is alert and oriented to person and place only. Currently denies any abdominal pain, nausea or vomiting. Patient still has abdominal distention. Has not had any bowel movements or passage of flatus. Had increased NG tube output today NG tube drainage turned from bilious to coffee-ground. Patient denies any dizziness, chest pain, shortness of breath Denies any fevers, chills Physical Exam Constitutional: + well hydrated; no acute distress Eyes: PERRL, conjunctivae normal, anicteric sclerae ENMT: external ear and nose normal, oropharynx normal NG tube in situ draining coffee-ground Respiratory: normal respiratory effort, lungs clear to auscultation Cardiovascular: Rate/Rhythm: regular rate and regular rhythm S1-S2 Gastrointestinal (Abdomen): Abdomen is distended, soft, nontender, very hypoactive bowel sounds Musculoskeletal: No pedal edema Neurologic: PERRL, EOMI, accommodation nl, no face palsy, no dysarthria Psychiatric: Alert and oriented to person and place only. Limited insight Results & Data Results & Data ([facility]) Vital Signs (Past 12 Hours) Vital Signs Temp Pulse Resp BP Pulse Ox 03/15/22 11:09 36.5 C 71 20 160/68 H 96 03/15/22 06:59 36.5 C 71 18 186/72 H 97 Laboratory Results Abnormal lab results 03/14/22 03/14/22 03/15/22 Range/Units 16:06 20:32 05:45 RBC (4.7-6.1) M/uL Hgb (14.0-18.0) g/dL Hct (42-52) % MCV (80-100) fL MCHC (32-36) g/dL RDW Std Deviation (36.4-46.3) fL MPV (7.4-10.4) fL Chloride (98-107) mmol/L Anion Gap (3-11) BUN (6-23) mg/dl Creatinine (0.6-1.4) mg/dl BUN/Creatinine Ratio (10-20) Glucose (70-99(Fasting)) mg/dl POC Glucose 160 H 142 H 121 H (70-99) mg/dl 03/15/22 03/15/22 Range/Units 07:10 07:10 RBC 3.55 L (4.7-6.1) M/uL Hgb 11.2 L (14.0-18.0) g/dL Hct 35.7 L (42-52) % MCV 100.6 H (80-100) fL MCHC 31.4 L (32-36) g/dL RDW Std Deviation 48.4 H (36.4-46.3) fL MPV 10.5 H (7.4-10.4) fL Chloride 97 L (98-107) mmol/L Anion Gap 14 H (3-11) BUN 51 H D (6-23) mg/dl Creatinine 5.85 H* D (0.6-1.4) mg/dl BUN/Creatinine Ratio 8.7 L (10-20) Glucose 126 H (70-99(Fasting)) mg/dl POC Glucose (70-99) mg/dl
--- NOTE | 2022-03-15 15:15 | Gastrointestinal Consultation ---
Date of Consultation March 15, 2022 Assessment & Plan (1) SBO (small bowel obstruction): (2) Coffee ground emesis: 77 y/o male with multiple co-morbids including severe s/p TAVR, ESRD on dialysis, admitted with abd pain, imaging suggestive of SBO. NGT was placed but had been dislodged. Was replaced today and had coffee ground return; canister has approx 650 mL of dark material in it; actively draining on LIS. Abd is distended, nontender. Pt was having flatus but reports none today. We are consulted for the coffee ground emesis. He seems to have ongoing moderate-high grade SBO over several days without much improvement w/ conservative mgmt. - At this point, discussed case with surgery - reviewed possible transfer to tertiary care center vs surgery here; apparently tertiary center was called but no beds available, he may be taken to the OR here. Reviewed case with hospita list as well - Would recommend IV PPI gtt - Continue NGT as per surgery Thank you for allowing us to participate in the care of this patient. Please call with any acute changes, questions or concerns. Please see addendum below with additional recommendation from my supervising physician. Supervising Physician Co-Signing Physician Notes I performed a history and physical examination of the patient today, including specifically on physical exam - soft abdomen. I have discussed the patient's management with the advanced practitioner. Please refer to the nurse practitioner's note for the documented findings and plan of care. Patient with nonresolving high grade SBO and now with coffee ground emesis likely due to his SBO. He need surgical intervention now for his SBO. I called who will discuss with patient and family about surgical intervention here Vs at [facility] [place]. IV PPI. Recall GI if needed otherwise no role for GI here. History of Present Illness Reason for Consultation: Coffee ground drainage from NGT (initially bilous) Requesting Physician: Dr. Grey Attending Physician: Doreen Grey MD History of Present Illness 77-year-old male with PMH severe s/p TAVR 02/16/[address] Moulton, T2DM with PVD, ESRD on PD, HTN, BPH, anemia of chronic disease, current tobacco use and others who presented to our ED 03/12 with complaint of abd pain for 2 days. Imaging suggestive of moderate-high grade SBO, had ascites. Had elevated lactate, leukocytosis, elevated troponin. Concern peritoneal infection vs ischemia. Surgery has been following; has not had surgery at this point. Started on ABX. Lactate improved with IVF. Had NGT placed. Was having flatus. However NGT became dislodged yesterday; was replaced today and had coffee ground emesis return. We are consulted for the coffee ground return. Pt seen in dialysis; has active coffee ground drainage from NGT; there is approx 650 mL in the canister. When he was first admitted he had abd pain. However now pt denies abd pain, n/v, melena, hematochezia. No BM. No flatus. Denies CP, SOB, fever, chills Continues to smoke, no ETOH. Allergies Allergy/AdvReac Type Severity Reaction Status Date / Time No Known Allergies Allergy Verified 03/12/22 10:58 Home Medications Medication Instructions Recorded Confirmed Type atorvastatin 40 mg tablet 40 mg PO QPM 07/31/19 03/12/22 History cholecalciferol (vitamin D3) 25 1,000 unit PO QAM 07/31/19 03/12/22 History mcg (1,000 unit) tablet (Vitamin D3) citalopram 40 mg tablet 40 mg PO QPM 07/31/19 03/12/22 History finasteride 5 mg tablet 5 mg PO HS 07/31/19 03/12/22 History linagliptin 5 mg tablet (Tradjenta) 5 mg PO QAM 07/31/19 03/12/22 History tamsulosin 0.4 mg capsule 0.4 mg PO HS 07/31/19 03/12/22 History albuterol sulfate 90 mcg/actuation 2 puff INHALATION Q6H PRN 12/16/19 03/12/22 History aerosol inhaler aspirin 81 mg tablet,delayed 81 mg PO QAM 01/06/20 03/12/22 History release polyethylene glycol 3350 17 gram 17 g PO DAILY PRN #10 ea 01/23/20 03/12/22 Rx oral powder packet (Miralax) torsemide 20 mg tablet 40 mg PO QAM 08/14/20 03/12/22 History calcitriol 0.25 mcg capsule 0.25 mcg PO QAM 01/31/22 03/12/22 History sevelamer carbonate 800 mg tablet 2,400 mg PO TIDM 01/31/22 03/12/22 History epoetin beta, methoxy peg 30 30 mcg IV UNKNOWN 03/12/22 03/12/22 History mcg/0.3 mL injection syringe (Mircera) fluticasone furoate 200 1 inh INHALATION DAILY 03/12/22 03/12/22 History mcg-vilanterol 25 mcg/dose inhalation powder (Breo Ellipta) Patient History Medical History Anxiety and depression AV fistula BPH (benign prostatic hyperplasia) Chronic anemia CKD (chronic kidney disease) stage 5, GFR less than 15 ml/min Diabetes mellitus, type 2 Elevated troponin I level ESRD (end stage renal disease) on dialysis Hyperlipidemia Hypertension Osteoarthritis PAD (peripheral artery disease) Peritoneal dialysis catheter in situ Tobacco abuse Tobacco use Surgical History Cardiac murmur History of cataract surgery RT/LEFT History of cholecystectomy History of colonoscopy History of esophagogastroduodenoscopy (EGD) History of procedure for peripheral vascular disease LEFT LEG (STENT PLACED/REASON FOR TAKING PLAVIX) History of tooth extraction Family History Brother Cancer Social History Smoking Status: Current every day smoker Tobacco Type: Cigarettes Cigarettes Per Day: 10; Second Hand Exposure: No; Do You Dip or Chew Tobacco: No; Tobacco Cessation Education Requested by Patient: No Hx Alcohol Use: No Hx Substance Use: No Preferred Language: Urugu[place] Communication Ability: Effective Reformatory Attendant Required: No Beliefs That Will Affect Care: None Current Living Situation: Alone How many Children do You have: 1 Other Information That Helps Us Care for You: No Feels Safe at Home: Yes Safety Concerns: Feels Safe At This Time Assistive Devices: Walker Review of Systems Review of Systems: All systems reviewed & are unremarkable except as noted in HPI & below Physical Exam Constitutional: Chronically ill; NAD Eyes: PERRL, conjunctivae normal, anicteric sclerae ENMT: external ear and nose normal, oropharynx normal Respiratory: normal respiratory effort, lungs clear to auscultation Cardiovascular: Rate/Rhythm: regular rate and regular rhythm Gastrointestinal (Abdomen): + Distended, somewhat firm, decreased BS. Nontender. NGT in place draining coffee grounds. Skin: no rashes, warm and dry Psychiatric: A+Ox3, euthymic affect Results & Data ([facility]) Vital Signs (Past 12 Hours) Vital Signs Temp Pulse Pulse Pulse Resp BP BP 03/15/22 12:40 76 102/60 03/15/22 12:20 71 116/68 03/15/22 12:07 36.6 C 72 03/15/22 11:09 36.5 C 71 20 160/68 H 03/15/22 06:59 36.5 C 71 18 186/72 H Pulse Ox 03/15/22 12:40 03/15/22 12:20 03/15/22 12:07 03/15/22 11:09 96 03/15/22 06:59 97 Laboratory Results 03/15/22 03/15/22 03/15/22 Range/Units 07:10 07:10 05:45 WBC 10.41 (4.8-10.8) K/uL RBC 3.55 L (4.7-6.1) M/uL Hgb 11.2 L (14.0-18.0) g/dL Hct 35.7 L (42-52) % MCV 100.6 H (80-100) fL MCH 31.5 (25-34) pg MCHC 31.4 L (32-36) g/dL RDW Std Deviation 48.4 H (36.4-46.3) fL RDW Coeff of Danny 13.1 (11.5-14.5) % Plt Count 138 (130-400) K/uL MPV 10.5 H (7.4-10.4) fL Sodium 138 (136-145) mmol/L Potassium 3.7 (3.5-5.1) mmol/L Chloride 97 L (98-107) mmol/L Carbon Dioxide 27 (21-32) mmol/L Anion Gap 14 H (3-11) BUN 51 H D (6-23) mg/dl Creatinine 5.85 H* D (0.6-1.4) mg/dl Est Cr Clr Drug Dosing 10.2 ml/min Est GFR ( Amer) 9.8 ml/min Est GFR (Non-Af Amer) 8.4 ml/min BUN/Creatinine Ratio 8.7 L (10-20) Glucose 126 H (70-99(Fasting)) mg/dl POC Glucose 121 H (70-99) mg/dl Calcium 8.9 (8.5-10.1) mg/dl 03/14/22 03/14/22 Range/Units 20:32 16:06 WBC (4.8-10.8) K/uL RBC (4.7-6.1) M/uL Hgb (14.0-18.0) g/dL Hct (42-52) % MCV (80-100) fL MCH (25-34) pg MCHC (32-36) g/dL RDW Std Deviation (36.4-46.3) fL RDW Coeff of Danny (11.5-14.5) % Plt Count (130-400) K/uL MPV (7.4-10.4) fL Sodium (136-145) mmol/L Potassium (3.5-5.1) mmol/L Chloride (98-107) mmol/L Carbon Dioxide (21-32) mmol/L Anion Gap (3-11) BUN (6-23) mg/dl Creatinine (0.6-1.4) mg/dl Est Cr Clr Drug Dosing ml/min Est GFR ( Amer) ml/min Est GFR (Non-Af Amer) ml/min BUN/Creatinine Ratio (10-20) Glucose (70-99(Fasting)) mg/dl POC Glucose 142 H 160 H (70-99) mg/dl Calcium (8.5-10.1) mg/dl Diagnostic Findings Most recent KUB: 03/15/2022 HISTORY: Acute generalized abdominal pain with reported small bowel obstruction SBO COMPARISON: KUB 03/13/2022, CTA abdomen and pelvis 03/12/2022. FINDINGS: Interval removal of the enteric tube. A catheter coils over the midline pelvis. Numerous distended air-filled loops of small bowel measure up to 5.1 cm and appears similar to the prior CT study. Cholecystectomy. No renal calculi. No ureteral calculi. No pneumoperitoneum or pneumatosis. No fracture. IMPRESSION: Persistent small bowel obstruction. Continued follow-up is needed. CTAP 03/12/22: FINDINGS: Prosthetic aortic valve is incidentally noted. Cardiomegaly is present. No pneumatosis, free air or portal venous gas is present. Evaluation of the abdomen and pelvis is suboptimal on this unenhanced exam. Biliary ductal dilatation is unchanged since CT of August 14, 2020 likely related to cholecystectomy. Mild dilatation of the main pancreatic duct is also unchanged. No hepatic lesions are identified on unenhanced exam. Spleen, adrenal glands and pancreas are unremarkable. Bilateral renal atrophy, greater on the right is again noted. There are several small left renal calculi. There are possible small right renal calculi. Water attenuation lesion within the midpole the left kidney favors a cyst. A few small hyperdense lesions within the right kidney could reflect hyperdense cysts. Intrarenal abdominal aorta is ectatic, measuring 2.6 cm. There is extensive aortoiliac atherosclerotic plaque. There is mild aneurysmal dilatation of the left common iliac artery, measuring 1.9 cm. These findings are similar to CT of August 14, 2020. Peritoneal dialysis catheter is coiled within the anterior pelvis. A small amount of fluid within the abdomen and pelvis is noted. Note is made of mesenteric stranding, most evident within the right aspect the mesentery. The proximal to small bowel is moderately dilated and fluid-filled. Note is made of a discrete transition point within the right upper quadrant on axial image 149 of 476. The more distal small bowel is significantly decompressed. This represents a moderate to high-grade small bowel obstruction. No acute fracture or suspicious lesion within the visualized skeletal structures. IMPRESSION: 1. Findings consistent with a moderate to high-grade small bowel obstruction. Dilatation of the majority of the small bowel without transition point within the mid ileum, within the right upper quadrant. Decompressed distal small bowel. Associated mesenteric stranding. Small amount of abdominal and pelvic ascites. 2. Peritoneal dialysis catheter coiled within the pelvis. CTA abd/pelvis 03/12/22: FINDINGS: Prosthetic aortic valve is noted. There is cardiomegaly. No pneumatosis, free air or portal venous gas is present in a small amount of abdominal and pelvic ascites is again noted. Peritoneal dialysis catheter is coiled within the anterior aspect of the pelvis. Arterial phase images of the liver, spleen, adrenal glands and pancreas are unremarkable. Mild biliary ductal dilatation is unchanged from earlier exams and likely related to cholecystectomy. Mild dilatation of the main pancreatic duct is also unchanged. There is no peripancreatic infiltration. Marked bilateral renal atrophy, greater on the right, is again noted. Water attenuation left renal lesion reflects a cyst. A few renal lesions are too small to characterize. Extensive aortoiliac atherosclerotic plaque is noted. The celiac axis is patent. There is moderate calcified and noncalcified plaque at the origin of the superior mesenteric artery which results in moderate stenosis. No embolus is identified. There is occlusion of the proximal inferior mesenteric artery with reconstitution. This finding is age indeterminate. Infrarenal abdominal aorta is ectatic. Displaced intimal calcifications within the abdominal aorta chronic. There are also displaced intimal complications within the left common iliac artery, also chronic. Mild aneurysmal dilatation of the left common iliac artery, measuring 2 cm, is noted. There is moderate stenosis at the origin of the left superficial femoral artery. There is moderate stenosis of the right common femoral and proximal right superficial femoral arteries. Severe stenosis of the left internal iliac artery is noted. 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 Distal reconstitution is noted. The majority of the small bowel is mildly dilated and fluid-filled. Similar to prior exam. Transition point within the right upper quadrant on axial image 180 of 526 is noted. Distal small bowel is decompressed. Several mesenteric stranding is noted. This is either unchanged or slightly increased since prior exam. No bowel wall thickening is identified. Small bowel wall enhances normally. 1. Findings consistent with a high-grade small bowel obstruction with transition point within the right upper quadrant, as detailed above. Mesenteric infiltration and ascites are nonspecific although given the clinical history, bowel ischemia cannot be excluded. No pneumatosis, free air or portal venous gas. Surgical consultation is recommended. 2. Extensive aortoiliac atherosclerotic plaque. 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 Patent celiac axis. No embolus identified. 3. Multiple additional findings, as above.
--- NOTE | 2022-03-15 16:03 | Anesthesiology Consultation ---
Date of Service March 15, 2022 Assessment & Plan Chart Review Cardiology note from 03/13/22: Assessment & Plan (1) Elevated troponin I level: (2) Severe calcific aortic valve stenosis: (3) Peritoneal dialysis catheter in situ: (4) SBO (small bowel obstruction): (5) Abdominal pain: Stable s/p TAVR no cardiac component to SBO resume outpatient meds once tolerating NPO no new wall motion abnormality on echo cardiac cath in February 2022 without significant disease History Surgery Operation Date: 03/15/22 08:40 Proposed Procedures p Exploratory Laparotomy, Possible Bowel Resection, Possible Stoma - Tommy Prieto MD Height/Weight Height: 5 ft 9 in Weight: 70.2 kg Allergies Allergy/AdvReac Type Severity Reaction Status Date / Time No Known Allergies Allergy Verified 03/12/22 10:58 Medications Home Medications Medication Instructions Recorded Confirmed Last Taken atorvastatin 40 mg tablet 40 mg PO QPM 07/31/19 03/12/22 03/11/22 cholecalciferol (vitamin D3) 25 1,000 unit PO QAM 07/31/19 03/12/22 03/11/22 mcg (1,000 unit) tablet (Vitamin D3) citalopram 40 mg tablet 40 mg PO QPM 07/31/19 03/12/22 03/11/22 finasteride 5 mg tablet 5 mg PO 07/31/19 03/12/22 03/11/22 linagliptin 5 mg tablet (Tradjenta) 5 mg PO QAM 07/31/19 03/12/22 03/11/22 tamsulosin 0.4 mg capsule 0.4 mg PO 07/31/19 03/12/22 03/11/22 albuterol sulfate 90 mcg/actuation 2 puff INHALATION Q6H PRN 12/16/19 03/12/22 03/11/22 aerosol inhaler aspirin 81 mg tablet,delayed 81 mg PO QAM 01/06/20 03/12/22 03/11/22 release polyethylene glycol 3350 17 gram 17 g PO DAILY PRN #10 ea 01/23/20 03/12/22 Unknown oral powder packet (Miralax) torsemide 20 mg tablet 40 mg PO QAM 08/14/20 03/12/22 03/11/22 calcitriol 0.25 mcg capsule 0.25 mcg PO QAM 01/31/22 03/12/22 03/11/22 sevelamer carbonate 800 mg tablet 2,400 mg PO TIDM 01/31/22 03/12/22 03/11/22 epoetin beta, methoxy peg 30 30 mcg IV UNKNOWN 03/12/22 03/12/22 Unknown mcg/0.3 mL injection syringe (Mircera) fluticasone furoate 200 1 inh INHALATION DAILY 03/12/22 03/12/22 03/11/22 mcg-vilanterol 25 mcg/dose inhalation powder (Breo Ellipta) Active Medications Generic Name Dose Route Start Last Admin Trade Name Freq PRN Reason Stop Dose Admin Fluticasone/Vilanterol 1 puffs 03/13/22 09:00 03/15/22 08:08 Fluticasone/Vilanterol 200/25mcg 14 Puffs/Inhaler INH 04/12/22 08:59 1 puffs DAILY RANDY Administration Heparin Sodium (Porcine) 5,000 units 03/12/22 21:00 03/15/22 08:08 Heparin Sod 5,000 Unit/0.5 Ml Vial SQ 04/11/22 20:59 5,000 units Q12 RANDY Administration Sodium Chloride 1,000 mls @ 30 mls/hr 03/14/22 07:45 03/15/22 08:09 Nss 1000ml IV 03/16/22 07:44 30 mls/hr .Q24H RANDY Administration Pantoprazole Sodium 40 mg/ 10 mls @ 5 mls/min 03/15/22 11:45 03/15/22 13:31 Syringe IV 04/14/22 11:44 5 mls/min BID RANDY Administration Insulin Aspart 0 units 03/13/22 00:00 03/15/22 13:31 Insulin Aspart Per Unit SC 04/12/22 00:00 Not Given Q6 RANDY Labetalol HCl 5 mg 03/12/22 17:05 03/13/22 04:12 Labetalol Hcl Iv 5 Mg/Ml 20ml IV 04/11/22 17:04 5 mg Q6H PRN Administration hypertension Morphine Sulfate 1 mg 03/12/22 13:20 03/13/22 03:02 Morphine Sulfate 2 Mg/Ml Carp IV 03/26/22 13:19 1 mg Q4H PRN Administration Pain Past Medical History Medical History Anxiety and depression AV fistula BPH (benign prostatic hyperplasia) Chronic anemia CKD (chronic kidney disease) stage 5, GFR less than 15 ml/min Diabetes mellitus, type 2 Elevated troponin I level ESRD (end stage renal disease) on dialysis Hyperlipidemia Hypertension Osteoarthritis PAD (peripheral artery disease) Peritoneal dialysis catheter in situ Tobacco abuse Tobacco use Past Family History Family History Brother Cancer Past Surgical History Surgical History Cardiac murmur History of cataract surgery RT/LEFT History of cholecystectomy History of colonoscopy History of esophagogastroduodenoscopy (EGD) History of procedure for peripheral vascular disease LEFT LEG (STENT PLACED/REASON FOR TAKING PLAVIX) History of tooth extraction Social History Smoking Status: Current every day smoker tobacco type: cigarettes Smoking cigarettes per day: 10 Do You Dip or Chew Tobacco: No Hx Alcohol Use: No Hx Substance Use: No substance use type: does not use Physical Exam Vital Signs Last Vital Signs Temp 36.6 C 03/15/22 12:07 Pulse 85 03/15/22 14:40 Resp 20 03/15/22 11:09 BP 110/62 03/15/22 14:40 Pulse Ox 96 03/15/22 11:09 Testing Laboratory Results 03/15/22 07:10 03/15/22 07:10 Urine Color Cancelled 03/12/22 18:15 Urine Appearance Cancelled 03/12/22 18:15 Urine pH Cancelled 03/12/22 18:15 Ur Specific [place] Cancelled 03/12/22 18:15 Urine Protein Cancelled 03/12/22 18:15 Urine Glucose (UA) Cancelled 03/12/22 18:15 Urine Ketones Cancelled 03/12/22 18:15 Urine Nitrite Cancelled 03/12/22 18:15 Ur Leukocyte Esterase Cancelled 03/12/22 18:15 Urine WBC (Auto) Cancelled 03/12/22 18:15 Urine RBC (Auto) Cancelled 03/12/22 18:15 U Hyaline Cast (Auto) Cancelled 03/12/22 18:15 U Epithel Cells (Auto) Cancelled 03/12/22 18:15 Urine Bacteria (Auto) Cancelled 03/12/22 18:15 03/12/22 10:05 Gram Stain - Final Peritoneal Fluid Deep Wound Culture - Final No growth 03/12/22 11:50 Aerobic Blood Culture - Preliminary Blood No growth in Aerobic bottle after 48 hours. Anaerobic Blood Culture - Preliminary No growth in Anaerobic bottle after 48 hours. 03/12/22 09:47 Aerobic Blood Culture - Preliminary Blood No growth in Aerobic bottle after 48 hours. Anaerobic Blood Culture - Preliminary No growth in Anaerobic bottle after 48 hours. 03/12/22 18:15 Gram Stain - Final Peritoneal dialysis fluid Aerobic and Anaerobic Culture - Preliminary No growth to date. 03/15/22 05:45 POC Glucose 121 H Electrocardiogram Date: 03/12/22 HR 81. Sinus rhythm with Premature atrial complexes Right bundle branch block Left anterior fascicular block Bifascicular block Voltage criteria for left ventricular hypertrophy Cannot rule out Septal infarct (cited on or before 12-MAR-2022) Abnormal ECG When compared with ECG of 01-FEB-2022 05:22, Premature atrial complexes are now Present Septal infarct is now Present ... Chest X-Ray Date: 03/12/22 XR chest 1V portable CLINICAL HISTORY: fever, sepsis COMPARISON STUDY: Chest radiograph January 31, 2022. FINDINGS: Prosthetic cardiac valve is noted. Cardiac mediastinal silhouette is stable. No pneumothorax or pleural effusion. No evidence for pulmonary edema. Interstitial thickening is improved when compared to exam of January 31, 2022 IMPRESSION: Interval improvement in interstitial thickening since prior exam. Echocardiogram Date: 03/13/22 Normal LV chamber size with moderate LVH. Normal LV systolic function. EF 55-60% No segmental LV wall motion abnormalities are noted. Grade 1 DD Valentina TAVR present, functioning appropriately.
[2022-03-15] MEDS ORDERED: PROPOFOL IV EMULSION 10 MG/ML 20 ML VIAL IV ONE (16:21)
[2022-03-15] MEDS ORDERED: PHENYLEPHRINE HCL 10 MG/ML VIAL ONE (16:21)
[2022-03-15] MEDS ORDERED: CISATRACURIUM BESYLATE IV SOLN 2 MG/ML 10 ML VIAL IV ONE (16:21)
[2022-03-15] MEDS ORDERED: fentaNYL citrate 100 MCG/2 ML VIAL ONE (16:21)
[2022-03-15] MEDS ORDERED: LIDOCAINE 2% 2 ML VIAL/AMP(20MG/ML) INFIL ONE (16:21)
[2022-03-15] MEDS ORDERED: VASOPRESSIN 20 UNIT/ML VIAL ONE (16:21)
[2022-03-15] MEDS: HEPARIN SOD (PORCINE) 1000 UNIT/ML IV SCH ×2 (16:31→16:32)
[2022-03-15] MEDS ORDERED: ALBUMIN HUMAN 5% 12.5 GM/250 ML VIAL IV ONE (16:35)
--- NOTE | 2022-03-15 17:18 | Surgery Progress Note ---
Date of Service March 15, 2022 Assessment & Plan (1) Abdominal pain: (2) SBO (small bowel obstruction): Plan: Persistent, dilated SB up to 5 cm on KUB this am Abdomen is distended but nontender and no peritoneal signs on exam Asymptomatic per patient Plan: Replace NGT to LIS NPO Bowel rest Mineral oil enema needs OOB to chair and ambulate with assistance to increase GI motility Continue current medical management Dr. Prieto has seen and examined pt, agrees with above. 03/15/2022 5:19PM Dr. Prieto F/U SBO, no improved, not passed any gas or BM, pt needs exploratory laparotomy, base on pt's CHF, severe aortic stenosis , S/P TAVR, ESRD, DM, acute respiratory failure, recommend to transfer [facility], pt had TAVR at [facility] one month ago, D/W benefits, risks and alternatives of the transfer, pt's daughter understood, she agrees with the transfer, I answered all questions, D/W Hospitalist. Admission and Anticipated Discharge Date Admission Date: March 12, 2022 Supervising Physician Co-Signing Physician Notes I performed a history and physical examination of the patient today, including specifically on physical exam - soft abdomen. I have discussed the patient's management with the advanced practitioner. Please refer to the nurse practitioner's note for the documented findings and plan of care. Patient with nonresolving high grade SBO and now with coffee ground emesis likely due to his SBO. He need surgical intervention now for his SBO. I called who will discuss with patient and family about surgical intervention here Vs at [facility]. IV PPI. Recall GI if needed otherwise no role for GI here. Subjective Patient seen and examined. Patient is alert and oriented to person and place only. Currently denies any abdominal pain, nausea or vomiting. Patient still has abdominal distention. Has not had any bowel movements or passage of flatus. Had increased NG tube output today NG tube drainage turned from bilious to coffee-ground. Patient denies any dizziness, chest pain, shortness of breath Denies any fevers, chills 03/15/2022 5:14PM, Dr. Prieto F/U SBO, pt is still not pass any gas or BM yet, NG tube out put 2000ml, coffee color, pt denies dizzy, no nausea, no fever, no abdominal apin, pt just finished his dialysis. Review of Systems Constitutional: as per Subjective / HPI Eyes: as per Subjective / HPI Respiratory: as per Subjective / HPI acute respiratory failure with hypoxia Cardiovascular: Additional Comments: CHF, TAVR, PAD, HTN, hyperlipidemia Gastrointestinal: S/P cholecystectomy, SBO, gastritis Genitourinary: + problem reported (renal failure, on peritoneal catheter dialysis) Physical Exam Constitutional: WD/WN, vitals as above Eyes: PERRL, conjunctivae normal, anicteric sclerae Neck: trachea midline, no thyromegaly Respiratory: normal respiratory effort, lungs clear to auscultation Cardiovascular: RRR, no murmur, no edema Gastrointestinal (Abdomen): mild distend, Nt, BS +, dialysis catheter intact, Musculoskeletal: no cyanosis or clubbing, extremities motor strength 5/5 Neurologic: patellar DTR's 2+ bilat, sensation intact Psychiatric: A+Ox3, euthymic affect Results & Data ([facility]) Vital Signs (Past 12 Hours) Vital Signs Temp Pulse Pulse Pulse Resp BP BP 03/15/22 17:10 36.4 C L 92 H 19 145/73 H 03/15/22 16:00 94 H 99/55 L 03/15/22 15:40 92 H 105/66 03/15/22 15:20 85 119/61 03/15/22 15:00 85 113/69 03/15/22 14:40 85 110/62 03/15/22 14:20 85 98/63 L 03/15/22 14:00 79 129/72 03/15/22 13:40 77 115/65 03/15/22 13:20 78 101/58 L 03/15/22 13:00 82 95/61 L 03/15/22 12:40 76 102/60 03/15/22 12:20 71 116/68 03/15/22 12:07 36.6 C 72 03/15/22 11:09 36.5 C 71 20 160/68 H 03/15/22 06:59 36.5 C 71 18 186/72 H Pulse Ox 03/15/22 17:10 97 03/15/22 16:00 03/15/22 15:40 03/15/22 15:20 03/15/22 15:00 03/15/22 14:40 03/15/22 14:20 03/15/22 14:00 03/15/22 13:40 03/15/22 13:20 03/15/22 13:00 03/15/22 12:40 03/15/22 12:20 03/15/22 12:07 03/15/22 11:09 96 03/15/22 06:59 97 Laboratory Results Abnormal lab results 03/14/22 03/15/22 03/15/22 Range/Units 20:32 05:45 07:10 RBC 3.55 L (4.7-6.1) M/uL Hgb 11.2 L (14.0-18.0) g/dL Hct 35.7 L (42-52) % MCV 100.6 H (80-100) fL MCHC 31.4 L (32-36) g/dL RDW Std Deviation 48.4 H (36.4-46.3) fL MPV 10.5 H (7.4-10.4) fL Chloride (98-107) mmol/L Anion Gap (3-11) BUN (6-23) mg/dl Creatinine (0.6-1.4) mg/dl BUN/Creatinine Ratio (10-20) Glucose (70-99(Fasting)) mg/dl POC Glucose 142 H 121 H (70-99) mg/dl 03/15/22 Range/Units 07:10 RBC (4.7-6.1) M/uL Hgb (14.0-18.0) g/dL Hct (42-52) % MCV (80-100) fL MCHC (32-36) g/dL RDW Std Deviation (36.4-46.3) fL MPV (7.4-10.4) fL Chloride 97 L (98-107) mmol/L Anion Gap 14 H (3-11) BUN 51 H D (6-23) mg/dl Creatinine 5.85 H* D (0.6-1.4) mg/dl BUN/Creatinine Ratio 8.7 L (10-20) Glucose 126 H (70-99(Fasting)) mg/dl POC Glucose (70-99) mg/dl Diagnostic Findings KUB HISTORY: Acute generalized abdominal pain with reported small bowel obstruction SBO COMPARISON: KUB 03/13/2022, CTA abdomen and pelvis 03/12/2022. FINDINGS: Interval removal of the enteric tube. A catheter coils over the midline pelvis. Numerous distended air-filled loops of small bowel measure up to 5.1 cm and appears similar to the prior CT study. Cholecystectomy. No renal calculi. No ureteral calculi. No pneumoperitoneum or pneumatosis. No fracture. IMPRESSION: Persistent small bowel obstruction. Continued follow-up is needed. (1) Abdominal pain Abdominal location: unspecified location Qualified Code(s): R10.9 - Unspecified abdominal pain
[2022-03-15 17:22] LABS: Hematocrit (blood only) 36.5 % (42-52); Hemoglobin 11.7 g/dL (14.0-18.0); Mean Corpuscular Hemoglobin 31.4 pg (25-34); Mean Corpuscular Volume 97.9 fL (80-100); Mean Platelet Volume 11.1 fL (7.4-10.4); Platelet Count 120 K/uL (130-400); RDW Coefficient of Variation 13.2 % (11.5-14.5); RDW Standard Deviation 47.2 fL (36.4-46.3); Red Blood Count 3.73 M/uL (4.7-6.1); White Blood Count 12.18 K/uL (4.8-10.8)
[2022-03-15 17:28] LABS: Mean Corpuscular Hgb Conc 32.1 g/dL (32-36)
--- NOTE | 2022-03-15 18:06 | Nephrology Progress Note ---
Date of Service March 15, 2022 Assessment & Plan (1) ESRD (end stage renal disease) on dialysis: Plan: Has functional AV fistula in addition to PD catheter. 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 unless d/w nephrology MD -rolandoto hold torsemide >>>STRICT I/O >> hoping his kidneys will continue to function despite IV contra st >did d/w surgery to avoid Fleets enemas in dialysis pt > instead to try mineral oil or tapwater (2) SBO (small bowel obstruction): Plan: for conservative management; gen surgery following and wishes to replace NGT NPO > continue NS at 30 mL/hr in this dialysis pt; will actually remove fluid w/ HD w/ liberal BP parameters (3) Abdominal pain: Plan: presume from SBO; ischemic bowel in differential >>PD fluid culture pending / NGTD BUT/AND PD fluid cell count/ GS not c/w peritonitis Admission and Anticipated Discharge Date Admission Date: March 12, 2022 Subjective seen on rounds this am 0840; has sitter now; feels his abd pain better; + hunger thirst Review of Systems Review of Systems: All systems reviewed & are unremarkable except as noted in Subjective Physical Exam Constitutional: well developed, average body habitus and cooperative; no acute distress Eyes: EOM intact bilaterally ENMT: Ears: no external ear abnormality Nose: no external nose abnormality Mouth: + dry oral mucous membranes (very dry) Neck: no nuchal rigidity Respiratory: normal respiratory effort and + cough Auscultation: + diminished lung sounds Cardiovascular: Rate/Rhythm: regular rate and regular rhythm Heart Sounds: + murmur Extremities: + AV fistula; no edema Gastrointestinal (Abdomen): Inspection/Auscultation: normal bowel sounds Percussion/Palpation: + abdomen tender, + guarding and abdomen soft Musculoskeletal: Extremities: strength 5/5 throughout Skin: no rashes, warm and dry Neurologic: albarran, fluent speech, no tremor Psychiatric: Orientation: oriented x 3 Insight: + limited insight Judgement: + limited judgement Results & Data ([facility]) Vital Signs (Past 12 Hours) Vital Signs Temp Pulse Pulse Pulse Pulse Resp BP 03/15/22 17:19 36.6 C 89 92 H 03/15/22 17:10 36.4 C L 92 H 19 03/15/22 16:20 98 H 102/68 03/15/22 16:00 94 H 99/55 L 03/15/22 15:40 92 H 105/66 03/15/22 15:20 85 119/61 03/15/22 15:00 85 113/69 03/15/22 14:40 85 110/62 03/15/22 14:20 85 98/63 L 03/15/22 14:00 79 129/72 03/15/22 13:40 77 115/65 03/15/22 13:20 78 101/58 L 03/15/22 13:00 82 95/61 L 03/15/22 12:40 76 102/60 03/15/22 12:20 71 116/68 03/15/22 12:07 36.6 C 72 03/15/22 11:09 36.5 C 71 20 03/15/22 06:59 36.5 C 71 18 BP Pulse Ox 03/15/22 17:19 153/80 H 03/15/22 17:10 145/73 H 97 03/15/22 16:20 03/15/22 16:00 03/15/22 15:40 03/15/22 15:20 03/15/22 15:00 03/15/22 14:40 03/15/22 14:20 03/15/22 14:00 03/15/22 13:40 03/15/22 13:20 03/15/22 13:00 03/15/22 12:40 03/15/22 12:20 03/15/22 12:07 03/15/22 11:09 160/68 H 96 03/15/22 06:59 186/72 H 97 Laboratory Results 03/15/22 16:40 03/15/22 07:10 (1) Abdominal pain Abdominal location: unspecified location Qualified Code(s): R10.9 - Unspecified abdominal pain
--- NOTE | 2022-03-15 20:33 | Discharge Summary ---
Date of Service March 15, 2022 Admission HPI Per Admitting Provider 77-year-old gentleman with PMH of severe aortic stenosis status post TAVR 02/16/[address] Moulton, T2DM with PVD, diabetic retinopathy of right eye, ESRD on PD, HTN, BPH, anemia of chronic disease, current tobacco use and depression with anxiety presented to our ED 03/12 with complaint of belly pain for 2 days. Per patient, he has been having this sharp pain around umbilicus since 2 days [employer]GER [employer], intermittent in nature, 2-4 times a day, when present the pain is 6-7 over 10, lasts for half an hour or so, no aggravating [eating/exertion not affecting the level of pain] or relieving factors per patient. Patient reports having "bound up" bowel movement on the day of arrival. Patient denies any fever or chills or myalgia or pain or burning while passing urine or increasing frequency of urine or headache or chest pain or palpitation. Patient reports nausea and he vomited 2 times the day prior to arrival, reports feeling weak and having sore throat since 1 day. Patient reports cough at baseline. Patient reports ea ting and drinking okay. Patient smokes tobacco since age 16, half pack a day. He was occasional alcoholic consumer [over the weekends], quit drinking couple of years ago. Denies any use of recreational drugs current or past. Full code, would like his daughter Krystal to make decisions for him. 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 Admission Exam Per Admitting Provider GENERAL: Alert and oriented x3. NAD, on RA. Looks ill and frail. HEENT: No pallor, no icterus. Pupils equal, round and reactive to light. Oral mucosa dry. NECK: No JVD, no neck masses. HEART: S1 and S2 heard. Regular rate and rhythm. Systolic murmur at aortic and pulmonic area, no gallop. RESPIRATORY SYSTEM: Normal AP diameter. No accessory muscle use. No wheezing, no crackles. ABDOMEN: Soft, decreased bowel sounds, PD catheter on left side without signs of infection at port of entry, diffuse tenderness more so on the right side, no rebound tenderness. Mild distention noted. CENTRAL NERVOUS SYSTEM: No facial droop. Speech is clear. Obeys simple commands. Moves extremities. EXTREMITIES: No edema, no erythema seen. Principal Diagnosis High grade SBO Discharge Exam Constitutional + well hydrated; no acute distress Eyes PERRL, conjunctivae normal, anicteric sclerae ENMT external ear and nose normal, oropharynx normal NGT in sity Respiratory normal respiratory effort, lungs clear to auscultation Cardiovascular Rate/Rhythm: regular rate and regular rhythm S1 S2 Gastrointestinal (Abdomen) Abdomen is distended, non tender, hypoactive bowel sounds Musculoskeletal No pedal edema Neurologic PERRL, EOMI, accommodation nl, no face palsy, no dysarthria Psychiatric Alert and oriented to person and place. No focal deficits Discharge Data Allergies Allergy/AdvReac Type Severity Reaction Status Date / Time No Known Allergies Allergy Verified 03/12/22 10:58 Consultations 03/12/22 11:37 Consult General Surgery Stat 03/12/22 11:40 ED Decision to Admit Stat 03/12/22 12:30 Consult Nephrology Routine 03/12/22 17:29 Consult Cardiology Routine 03/15/22 11:42 Consult Gastroenterology Routine 03/15/22 19:16 Burn CD for patient Stat Procedures Performed Operation Date: 03/15/22 08:40 <No data on this case meets the specified criteria> Ordered Studies 03/12/22 10:53 CT abd pelvis wo con Stat Prosthetic aortic valve is incidentally noted. Cardiomegaly is present. No pneumatosis, free air or portal venous gas is present. Evaluation of the abdomen and pelvis is suboptimal on this unenhanced exam. Biliary ductal dilatation is unchanged since CT of August 14, 2020 likely related to cholecystectomy. Mild dilatation of the main pancreatic duct is also unchanged. No hepatic lesions are identified on unenhanced exam. Spleen, adrenal glands and pancreas are unremarkable. Bilateral renal atrophy, greater on the right is again noted. There are several small left renal calculi. There are possible small right renal calculi. Water attenuation lesion within the midpole the left kidney favors a cyst. A few small hyperdense lesions within the right kidney could reflect hyperdense cysts. Intrarenal abdominal aorta is ectatic, measuring 2.6 cm. There is extensive aortoiliac atherosclerotic plaque. There is mild aneurysmal dilatation of the left common iliac artery, measuring 1.9 cm. These findings are similar to CT of August 14, 2020. Peritoneal dialysis catheter is coiled within the anterior pelvis. A small amount of fluid within the abdomen and pelvis is noted. Note is made of mesenteric stranding, most evident within the right aspect the mesentery. The proximal to small bowel is moderately dilated and fluid-filled. Note is made of a discrete transition point within the right upper quadrant on axial image 149 of 476. The more distal small bowel is significantly decompressed. This represents a moderate to high-grade small bowel obstruction. No acute fracture or suspicious lesion within the visualized skeletal structures. IMPRESSION: 1. Findings consistent with a moderate to high-grade small bowel obstruction. Dilatation of the majority of the small bowel without transition point within the mid ileum, within the right upper quadrant. Decompressed distal small bowel. Associated mesenteric stranding. Small amount of abdominal and pelvic ascites. 2. Peritoneal dialysis catheter coiled within the pelvis 03/12/22 12:25 CT angio abdomen pelvis w con Stat Prosthetic aortic valve is noted. There is cardiomegaly. No pneumatosis, free air or portal venous gas is present in a small amount of abdominal and pelvic ascites is again noted. Peritoneal dialysis catheter is coiled within the anterior aspect of the pelvis. Arterial phase images of the liver, spleen, adrenal glands and pancreas are unremarkable. Mild biliary ductal dilatation is unchanged from earlier exams and likely related to cholecystectomy. Mild dilatation of the main pancreatic duct is also unchanged. There is no peripancreatic infiltration. Marked bilateral renal atrophy, greater on the right, is again noted. Water attenuation left renal lesion reflects a cyst. A few renal lesions are too small to characterize. Extensive aortoiliac atherosclerotic plaque is noted. The celiac axis is patent. There is moderate calcified and noncalcified plaque at the origin of the superior mesenteric artery which results in moderate stenosis. No embolus is identified. There is occlusion of the proximal inferior mesenteric artery with reconstitution. This finding is age indeterminate. Infrarenal abdominal aorta is ectatic. Displaced intimal calcifications within the abdominal aorta chronic. There are also displaced intimal complications within the left common iliac artery, also chronic. Mild aneurysmal dilatation of the left common iliac artery, measuring 2 cm, is noted. There is moderate stenosis at the origin of the left superficial femoral artery. There is moderate stenosis of the right common femoral and proximal right superficial femoral arteries. Severe stenosis of the left internal iliac artery is noted. 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 Distal reconstitution is noted. The majority of the small bowel is mildly dilated and fluid-filled. Similar to prior exam. Transition point within the right upper quadrant on axial image 180 of 526 is noted. Distal small bowel is decompressed. Several mesenteric stranding is noted. This is either unchanged or slightly increased since prior exam. No bowel wall thickening is identified. Small bowel wall enhances normally. IMPRESSION: 1. Findings consistent with a high-grade small bowel obstruction with transition point within the right upper quadrant, as detailed above. Mesenteric infiltration and ascites are nonspecific although given the clinical history, bowel ischemia cannot be excluded. No pneumatosis, free air or portal venous gas. Surgical consultation is recommended. 2. Extensive aortoiliac atherosclerotic plaque. 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 Patent celiac axis. No embolus identified. 3. Multiple additional findings, as above. Hospital Course (1) SBO (small bowel obstruction): Small bowel obstruction Suspected ischemic bowel --ABD CTA:Findings consistent with a high-grade small bowel obstruction with transition point within the right upper quadrant, as detailed above. Mesenteric infiltration and ascites are nonspecific although given the clinical history, bowel ischemia cannot be excluded. No pneumatosis, free air or portal venous gas. Surgical consultation is recommended. Extensive aortoiliac atherosclerotic plaque. 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 Patent celiac axis. No embolus identified. --ABD CT:Findings consistent with a moderate to high-grade small bowel obstruction. Dilatation of the majority of the small bowel without transition point within the mid ileum, within the right upper quadrant. Decompressed distal small bowel. Associated mesenteric stranding. Small amount of abdominal and pelvic ascites. Peritoneal dialysis catheter coiled within the pelvis. --Had Lactic acidosis which improved with IV fluids NGT now draining coffee ground fluid. Increased output. RN reported drainage was bilous till today Concern for worsening obstruction +/-ischemia IV PPI bid started Discussed with GI Given non improvement on conservative management, I discussed with Surgeon Dr Conner ERNANDEZ still showing obstruction Continue NPO Surgeon recommended transfer to [facility] for surgical management stating patient's cardiovascular comorbidities makes for high risk procedure here. [place] [facility] [place] and patient accepted for transfer Called Daughter and updated her ESRD No signs of PD peritonitis based on culture/analysis Empirical antibiotics stopped Nephrology was on board Not getting PD for now for bowel rest in view of SBO Had been getting HD while inpatient Elevated troponin Likely due to ESRD S/P TAVR ECHO:No regional wall motion abnormality, EF: 55-60%, TAVR functioning a ppropriately, Grade I diastolic dysfunction Denies any angina symptoms DM II HbA1C:6.January Total Time Total Time Spent Total Time Spent (In Minutes): 50 Total Time Includes: Examination of the Patient, Discharge Planning, Medication Reconciliation, Communication With Other Providers and Other Discharge Plan Discharge Items Patient Disposition: Transfer Acute Care Hospital Reason For Visit: bowel pain x 2 days Discharge Diagnosis: High grade SBO Failed conservative management Activity: As commented below Non-emergency contact: Primary Care Provider Call non-emergency contact if: you have any medication questions and your symptoms worsen Follow-up/Referrals: Laron Peña MD [Primary Care Provider] - Diet: Other - See Diet Comment Addtl Attending Provider Instructions: Mr Griselda Barrientos presented with abdominal pain. You were evaluated and found to have small bowel obstruction. Conservative management was started but obstruction has worsened. You are being transferred to [facility] for possible surgery. Pending Studies at Discharge: No Stand-Alone Forms: My [facility] Skilled Items Patient informed of condition?: No DNR: No Discharge Level of Care: Other Communicable Disease: No Discharge Prognosis: Other Lines: Peripheral IV Urinary Catheter: No Medications and DC Order Prescriptions: Continued torsemide 20 mg tablet 40 mg PO QAM RF: 0 atorvastatin 40 mg Tablet 40 mg PO QPM RF: 0 citalopram 40 mg Tablet 40 mg PO QPM RF: 0 tamsulosin 0.4 mg Capsule 0.4 mg PO HS RF: 0 finasteride 5 mg Tablet 5 mg PO HS RF: 0 cholecalciferol (vitamin D3) [Vitamin D3] 1,000 unit (25 mcg) Tablet 1,000 unit PO QAM RF: 0 Tradjenta 5 mg Tablet 5 mg PO QAM RF: 0 albuterol sulfate 90 mcg/actuation HFA aerosol inhaler 2 puff inhalation Q6H PRN (Reason: Shortness Of Breath Or Wheezing) RF: 0 aspirin 81 mg Tablet,Delayed Release (Dr/Ec) 81 mg PO QAM RF: 0 polyethylene glycol 3350 [Miralax] 17 gram Powder In Packet 17 g PO DAILY PRN (Reason: constipation) Qty: 10 RF: 0 calcitriol 0.25 mcg capsule 0.25 mcg PO QAM RF: 0 sevelamer carbonate 800 mg tablet 2,400 mg PO TIDM RF: 0 Mircera 30 mcg/0.3 mL Syringe 30 mcg IV UNKNOWN RF: 0 Breo Ellipta 200-25 mcg/dose Blister With Device 1 inh INHALATION DAILY RF: 0 Discharge Orders: Discharge Order (Routine); Ordered 03/15/22 Ordered By: Doreen Grey Admission Data Admit Date/Time: 03/12/22 12:29 Attending Provider: Doreen Grey I. Admit Provider: Ericka Lua Primary Care Provider: Laron Peña Other Providers: Tommy Prieto ; Ericka Lua ; Helen Horta ; Raheem Jerez ; Delta Larry ; Germain Martínez Other Interventions: Discharge Summary Assessment (RN) Last Done: 03/15/22 19:47
== END 2022-03-15 20:28 | disposition short-term general hospital (02) | DRG 388 ==
LOC: ED 09:24 → 2S 12:29 → SUATTDRO 12:29 → 2S 03-15 06:26

== ENCOUNTER 2022-04-12 21:25 | Inpatient (IN) ==
[2022-04-12] MEDS ORDERED: ONDANSETRON INJ 2 MG/ML 2 ML VIAL IV STA (23:07)
[2022-04-12] MEDS ORDERED: MoRPHine SULFATE 4 MG/ML 1 ML CARP\\VIAL IV STA (23:07)
[2022-04-12] MEDS ORDERED: KETOROLAC TROMETHAMINE 15 MG/ML VIAL IV STA (23:07)
[2022-04-12] MEDS ORDERED: SODIUM CHLORIDE 0.9% 500 ML IV STA (23:07)
--- NOTE | 2022-04-12 23:12 | Emergency Department Note ---
History of Present Illness General Chief complaint: Weakness Time Seen by Provider: 04/12/22 22:46 History of Present Illness 77-year-old male presents to the ED with a chief complaint of needing rehab. The patient was discharged from [facility] yesterday after having a dialysis catheter placed. He was sent there on the third because of a dialysis fistula malfunction. The daughter states that he was supposed to go to rehab but declined rehab yesterday prior to discharge. When he got home today he felt lik e he was weak and was not able to function at home and therefore the patient came to the ED for evaluation at the advice of his doctor. The patient gets dialysis Sunday, Sunday and Sunday. He denies any specific complaints at this time other than generalized weakness. Home Medications Medication Instructions Recorded Confirmed Type atorvastatin 40 mg tablet 40 mg PO QPM 07/31/19 04/12/22 History cholecalciferol (vitamin D3) 25 1,000 unit PO QAM 07/31/19 04/12/22 History mcg (1,000 unit) tablet (Vitamin D3) citalopram 40 mg tablet 40 mg PO QAM 07/31/19 04/12/22 History finasteride 5 mg tablet 5 mg PO HS 07/31/19 04/12/22 History tamsulosin 0.4 mg capsule 0.4 mg PO HS 07/31/19 04/12/22 History albuterol sulfate 90 mcg/actuation 2 puff INHALATION Q6H PRN 12/16/19 04/12/22 History aerosol inhaler aspirin 81 mg tablet,delayed 81 mg PO QAM 01/06/20 04/12/22 History release torsemide 20 mg tablet 40 mg PO QAM 08/14/20 04/12/22 History calcitriol 0.25 mcg capsule 0.25 mcg PO QAM 01/31/22 04/12/22 History sevelamer carbonate 800 mg tablet 800 mg PO TIDM 01/31/22 04/12/22 History epoetin beta, methoxy peg 30 30 mcg IV MONTHLY 03/12/22 04/12/22 History mcg/0.3 mL injection syringe (Mircera) fluticasone furoate 200 1 inh INHALATION DAILY 03/12/22 04/12/22 History mcg-vilanterol 25 mcg/dose inhalation powder (Breo Ellipta) polyethylene glycol 3350 17 gram 17 g PO DAILY 04/12/22 04/12/22 History oral powder packet (Miralax) vancomycin 125 mg capsule 125 mg PO Q6H 04/12/22 04/12/22 History vitamin B complex and vitamin C 1 cap PO DAILY 04/12/22 04/12/22 History no.20-folic acid 1 mg capsule (Renal Caps) Allergies Allergy/AdvReac Type Severity Reaction Status Date / Time No Known Allergies Allergy Verified 04/12/22 22:33 Past Med/Surg History Medical History Anxiety and depression AV fistula BPH (benign prostatic hyperplasia) Chronic anemia CKD (chronic kidney disease) stage 5, GFR less than 15 ml/min Diabetes mellitus, type 2 Elevated troponin I level ESRD (end stage renal disease) on dialysis Hyperlipidemia Hypertension Osteoarthritis PAD (peripheral artery disease) Peritoneal dialysis catheter in situ Tobacco abuse Tobacco use Surgical History Cardiac murmur History of cataract surgery RT/LEFT History of cholecystectomy History of colonoscopy History of esophagogastroduodenoscopy (EGD) History of procedure for peripheral vascular disease LEFT LEG (STENT PLACED/REASON FOR TAKING PLAVIX) History of tooth extraction Family History Brother Cancer Social History Smoking Status: Current every day smoker Tobacco Type: Cigarettes Cigarettes Per Day: 10; Second Hand Exposure: No; Hx Alcohol Use: No Hx Substance Use: No Preferred Language: Swedish Communication Ability: Effective Assistant Manager [employer] Required: No Beliefs That Will Affect Care: None Current Living Situation: Alone How many Children do You have: 1 Feels Safe at Home: Yes Assistive Devices: Walker Review of Systems A total of 10 systems reviewed and were otherwise negative Physical Exam Vital Signs Vital Signs - 24 hr 04/12/22 21:29 04/12/22 22:01 04/12/22 23:00 Temperature 37.1 C Temperature Source Oral Pulse Rate 81 76 71 Respiratory Rate 21 21 24 Respiratory Effort / Characteristics Non-Labored Respiratory Depth Normal Respiratory Pattern Regular Blood Pressure 117/59 L 125/60 126/56 L Blood Pressure Mean 78 81 79 Pulse Oximetry 99 99 100 Oxygen Delivery Method Room Air Sepsis Recent Fever Within 48 Hours No Sepsis New/Unexplained Change in Mental Status N/A Sepsis Action Taken by Nursing No Action Required CONSTITUTIONAL/VITAL SIGNS: Reviewed / noted above. GENERAL: Non-toxic in appearance. Generalized weakness. INTEGUMENTARY: Warm, dry, and [place]. HEAD: Normocephalic. EYES: without scleral icterus or trauma. ENT/OROPHARYNX: clear and moist. LYMPHADENOPATHY/NECK: Is supple without lymphadenopathy or meningismus. RESPIRATORY: Clear to auscultation bilaterally. No increased work of breathing. CARDIOVASCULAR: Regular rate and rhythm. CHEST: Dialysis catheter in the right chest wall. GI/ABDOMEN: Soft and nontender. No organomegaly or pulsatile mass. EXTREMITIES: Warm and well perfused. BACK: No CVA tenderness. NEUROLOGICAL: Intact without focal deficits. PSYCHIATRIC: normal affect. MUSCULOSKELETAL: Normally developed with good muscle tone. TRIAGE NURSING DOCUMENTATION REVIEWED. Course Administered Medications Discontinued Medications Sodium Chloride (Nss) 500 mls @ 999 mls/hr IV .Q31M STA Stop: 04/12/22 23:37 Last Admin: 04/13/22 00:02 Dose: 999 mls/hr Documented by: [id number] Ketorolac Tromethamine (Ketorolac Tromethamine 15 Mg/Ml Vial) 10 mg IV NOW STA Stop: 04/12/22 23:08 Last Admin: 04/13/22 00:02 Dose: Not Given Documented by: [id number] Morphine Sulfate (Morphine Sulfate 4 Mg/Ml 1 Ml Carp\Vial) 2 mg IV NOW STA Stop: 04/12/22 23:08 Last Admin: 04/13/22 00:02 Dose: Not Given Documented by: [id number] Ondansetron HCl (Ondansetron Inj 2 Mg/Ml 2 Ml Vial) 4 mg IV NOW STA Stop: 04/12/22 23:08 Last Admin: 04/13/22 00:02 Dose: Not Given Documented by: [id number] Medical Decision Making Differential Diagnosis Differential includes acute coronary syndrome, myocardial infarction, CVA, TIA, anemia, infection, pneumonia, UTI, pyelonephritis, poor nutrition, dehydration, electrolyte disturbance,hypoglycemia. Medical Records Attestation: I reviewed the patient's medical records. Home Medications Current Medication List: was personally reviewed by me Laboratory Data Attestation: I reviewed the patient's lab results. Result diagrams: 04/12/22 23:29 04/12/22 23:29 Lab Results 04/12/22 04/12/22 Range/Units 23:29 23:29 WBC 8.58 (4.8-10.8) K/uL RBC 2.88 L (4.7-6.1) M/uL Hgb 8.8 L (14.0-18.0) g/dL Hct 28.3 L (42-52) % MCV 98.3 (80-100) fL MCH 30.6 (25-34) pg MCHC 31.1 L (32-36) g/dL RDW Std Deviation 53.9 H (36.4-46.3) fL RDW Coeff of Danny 15.2 H (11.5-14.5) % Plt Count 212 (130-400) K/uL MPV 9.8 (7.4-10.4) fL Immature Gran % (Auto) 1.7 % Neut % (Auto) 59.3 % Lymph % (Auto) 22.3 % [place] % (Auto) 11.1 % Eos % (Auto) 5.1 % Baso % (Auto) 0.5 % Neut # (Auto) 5.09 (1.4-6.5) K/uL Lymph # (Auto) 1.91 (1.2-3.4) K/uL [place] # (Auto) 0.95 H (0.11-0.59) K/uL Eos # (Auto) 0.44 (0-0.5) K/uL Baso # (Auto) 0.04 (0-0.2) K/uL Immature Gran # (Auto) 0.15 H (0.00-0.02) K/uL Sodium 137 (136-145) mmol/L Potassium 4.5 (3.5-5.1) mmol/L Chloride 102 (98-107) mmol/L Carbon Dioxide 26 (21-32) mmol/L Anion Gap 9 (3-11) BUN 31 H (6-23) mg/dl Creatinine 4.23 H (0.6-1.4) mg/dl Est Cr Clr Drug Dosing 13.3 ml/min Est GFR ( Amer) 14.4 ml/min Est GFR (Non-Af Amer) 12.5 ml/min BUN/Creatinine Ratio 7.3 L (10-20) Glucose 116 H (70-99(Fasting)) mg/dl Calcium 8.9 (8.5-10.1) mg/dl Total Bilirubin 0.4 (0.2-1.0) mg/dl AST 21 (13-39) U/L ALT < 3 L (7-52) U/L Alkaline Phosphatase 63 (34-104) U/L Total Protein 6.3 (6.0-8.3) gm/dl Albumin 3.3 L (3.4-5.0) gm/dl Globulin 3.0 (2.5-4.0) gm/dl Albumin/Globulin Ratio 1.1 (0.9-2) Lipase 121 H (11-82) U/L Imaging Data My Impression: Chest x-ray: Per my interpretation there is no acute disease. No pneumothorax or pneumonia. MDM Narrative 77-year-old male presents with generalized weakness and requesting to go to rehab. He was discharged from [facility] yesterday and they were going to set him up for rehab but he declined that. After arriving home he decided that he wanted rehab. He came here for that reason. No additional complaints this time. CBC shows some chronic anemia. Chemistry panel shows chronic renal insufficiency related to the dialysis dependent renal failure patient. Chest x- ray does not show acute process. The patient will be seen by the hospitalist for further inpatient evaluation and rehab placement. Impression & Plan Ambulatory dysfunction, Generalized weakness Discharge Plan Visit Data Chief Complaint: Weakness ED Provider: Armin Butt Discharge Problem: Ambulatory dysfunction, Generalized weakness Forms Stand Alone Forms: My [facility] Prescriptions Prescriptions: No Action torsemide 20 mg tablet 40 mg PO QAM RF: 0 atorvastatin 40 mg Tablet 40 mg PO QPM RF: 0 citalopram 40 mg Tablet 40 mg PO QAM RF: 0 tamsulosin 0.4 mg Capsule 0.4 mg PO HS RF: 0 finasteride 5 mg Tablet 5 mg PO HS RF: 0 cholecalciferol (vitamin D3) [Vitamin D3] 1,000 unit (25 mcg) Tablet 1,000 unit PO QAM RF: 0 albuterol sulfate 90 mcg/actuation HFA aerosol inhaler 2 puff inhalation Q6H PRN (Reason: Shortness Of Breath Or Wheezing) RF: 0 aspirin 81 mg Tablet,Delayed Release (Dr/Ec) 81 mg PO QAM RF: 0 calcitriol 0.25 mcg capsule 0.25 mcg PO QAM RF: 0 sevelamer carbonate 800 mg tablet 800 mg PO TIDM RF: 0 Mircera 30 mcg/0.3 mL Syringe 30 mcg IV MONTHLY RF: 0 fluticasone furoate-vilanterol [Breo Ellipta] 200-25 mcg/dose Blister With Device 1 inh INHALATION DAILY RF: 0 vancomycin 125 mg capsule 125 mg PO Q6H RF: 0 Renal Caps 1 mg Capsule 1 cap PO DAILY RF: 0 polyethylene glycol 3350 [Miralax] 17 gram powder in packet 17 g PO DAILY RF: 0 Referrals Referrals: Laron Peña MD [Primary Care Provider] -
[2022-04-12 23:41] LABS: Basophils # (auto) 0.04 K/uL (0-0.2); Basophils % (auto) 0.5 %; Eosinophils # (auto) 0.44 K/uL (0-0.5); Eosinophils % (auto) 5.1 %; Hematocrit (blood only) 28.3 % (42-52); Hemoglobin 8.8 g/dL (14.0-18.0); Immature Granulocytes # (auto) 0.15 K/uL (0.00-0.02); Immature Granulocytes % (auto) 1.7 %; Lymphocytes # (auto) 1.91 K/uL (1.2-3.4); Lymphocytes % (auto) 22.3 %; Mean Corpuscular Hemoglobin 30.6 pg (25-34); Mean Corpuscular Hgb Conc 31.1 g/dL (32-36); Mean Corpuscular Volume 98.3 fL (80-100); Mean Platelet Volume 9.8 fL (7.4-10.4); Monocytes # (auto) 0.95 K/uL (0.11-0.59); Monocytes % (auto) 11.1 %; Neutrophils # (auto) 5.09 K/uL (1.4-6.5); Neutrophils % (auto) 59.3 %; Platelet Count 212 K/uL (130-400); RDW Coefficient of Variation 15.2 % (11.5-14.5); RDW Standard Deviation 53.9 fL (36.4-46.3); Red Blood Count 2.88 M/uL (4.7-6.1); White Blood Count 8.58 K/uL (4.8-10.8)
[2022-04-13 00:04] LABS: Anion Gap 9 (3-11); BUN Creatinine Ratio 7.3 (10-20); Blood Urea Nitrogen 31 mg/dl (6-23); Calcium 8.9 mg/dl (8.5-10.1); Carbon Dioxide 26 mmol/L (21-32); Chloride 102 mmol/L (98-107); Creatinine Clr Calc Pharmacy 13.3 ml/min; Est GFR (African American) 14.4 ml/min; Est GFR (Non-African American) 12.5 ml/min; Glucose 116 mg/dl (70-99(Fasting)); Potassium 4.5 mmol/L (3.5-5.1); Sodium 137 mmol/L (136-145)
[2022-04-13 00:06] LABS: Alanine Aminotransferase < 3 U/L (7-52); Albumin Globulin Ratio 1.1 (0.9-2); Albumin Level 3.3 gm/dl (3.4-5.0); Alkaline Phosphatase 63 U/L (34-104); Aspartate Aminotransferase 21 U/L (13-39); Bilirubin,Total 0.4 mg/dl (0.2-1.0); Lipase 121 U/L (11-82); Total Protein 6.3 gm/dl (6.0-8.3)
[2022-04-13] MEDS ORDERED: ACETAMINOPHEN 325 MG TAB PO PRN (00:48)
[2022-04-13] MEDS ORDERED: ALBUTEROL HFA 8 GM INHALER INH PRN (00:48)
[2022-04-13] MEDS ORDERED: POLYETHYLENE (MIRALAX) 17 GM PACK PO PRN (00:48)
[2022-04-13] MEDS ORDERED: GLUCAGON FOR INJ 1 MG VIAL IM PRN (03:15)
[2022-04-13] MEDS ORDERED: DEXTROSE 50% 50 ML SYRINGE IV PRN (03:15)
[2022-04-13] MEDS ORDERED: GLUCOSE 40% GEL 15 GM TUBE PO PRN (03:15)
[2022-04-13] MEDS ORDERED: GLUCOSE 10 TABS/TUBE PO PRN (03:15)
--- NOTE | 2022-04-13 04:01 | History and Physical Report ---
DATE OF ADMISSION: 04/13/2022. CHIEF COMPLAINT: Weakness. HISTORY OF PRESENT ILLNESS: This is a 77-year-old male with past medical history significant for type 2 diabetes, hyperlipidemia, hyperparathyroidism, end-stage renal disease on hemodialysis, COPD, peripheral vascular disease, hypertension, aortic stenosis, history of small-bowel obstruction, history of C. diff colitis, protein energy malnutrition, BPH, anemia of chronic kidney disease, depression with anxiety, tobacco use, comes because of weakness. The patient was in the hospital in March for small-bowel obstruction. The patient was then at [facility]. On 04/07/2022, he presented to [facility] because AV fistula was not working, so he was transferred to [facility].. In March, when he had an exploratory laparotomy with lysis of adhesions for small bowel obstruction, his PD catheter was removed and he was on HD from AV fistula placed in 2017. Seems he was on PD since 2019.. He was also tested positive for C. diff on 04/03/2022 and started on p.o. vancomycin to complete the course on 04/13/2022. On 04/07/2022, he came from [facility] to [facility] ER for AVF malfunction,and he was sent to [place] . At [place] right IJ tunneled catheter was placed for dialysis as left AV dialysis catheter was not working. Fistulogram showed that fistula was still able to be used , although a portion of the cephalic vein was occluded. He was supposed to follow up with vascular surgery to discuss for possible revision of this fistula. At that time, as per the ER, there was plan for sending him back to rehab, but he declined, and did ok in PT, OT and sent home with home health. He lives alone and ambulates with a walker, and after going home, his daughter was worried that he will fall again and he was called to rehabilitation, but rehab said to come to the ER for further evaluation as per ER. Currently, resting comfortably and hemodynamically stable. Denies any headache. No chest pain, no back pain. No nausea, no vomiting, no shortness of breath, no cough, no fever, no chills. Appetite is okay. No difficulty swallowing. No abdominal pain. Normal bowel and bladder movements. ALLERGIES: No known drug allergies. PAST MEDICAL HISTORY: As mentioned above. PAST SURGICAL HISTORY: Aortogram, cardiac catheterization, colonoscopy, EGDs, exploration of abdomen and removal of peritoneal catheter, freeing of abdominal adhesions, insertion of tunneled catheter, TAVR MEDICATIONS: The patient is on albuterol 2 puffs inhalation q. 6 hours p.r.n., aspirin 81 mg p.o. a.m., atorvastatin 40 mg p.o. a.m., B complex 1 capsule p.o. daily, calcitriol 0.25 mcg p.o. a.m., vitamin D 1000 units p.o. a.m., citalopram 40 mg p.o. a.m., finasteride 5 mg p.o. at bedtime, Breo Ellipta 1 inhalation daily. Mircera 30 mcg IV monthly, MiraLax 17 g p.o. daily, sevelamer carbonate 800 mg p.o. t.i.d. with meals, Flomax 0.4 mg p.o. at bedtime, torsemide 40 mg p.o. a.m., vancomycin 125 mg p.o. q. 6 hours. FAMILY HISTORY: Significant for brother had cancer. SOCIAL HISTORY: Single, smokes half pack a day for 60 years. No alcohol use. No drug use. REVIEW OF SYSTEMS: As per HPI. Rest of the review of systems is negative. PHYSICAL EXAMINATION: GENERAL: The patient is of moderate build, not in acute distress. VITAL SIGNS: Temperature 37.1, pulse 64, respiratory rate 18, blood pressure 131/58, oxygen 100% on room air. HEENT: Pupils equal, round, and reactive to light. Oral mucosa moist. LUNGS: No JVD, no neck masses. CARDIOVASCULAR: S1 and S2 heard. Regular rate and rhythm. No murmur. RESPIRATORY: Normal AP diameter. No accessory muscle use. No wheezing, no crackles. ABDOMEN: Soft. Bowel sounds are present, nontender, no distention. CENTRAL NERVOUS SYSTEM: Cranial nerves II-XII grossly intact, nonfocal. EXTREMITIES: No edema, no erythema. LABORATORY DATA: WBC to 8.5, hemoglobin 8.8, hematocrit 28.3, platelets 212. Sodium 137, potassium 4.5, chloride 102, bicarbonate 26, BUN 31, creatinine 4.2, serum glucose 116, calcium 8.9, total bilirubin 0.4, AST 21, ALT less than 3, alkaline phosphatase 63, lipase 121. SARS-CoV-2 rapid test negative. IMAGING DATA: Chest x-ray, no acute findings. ASSESSMENT AND PLAN: This is a 77-year-old male who was having his arteriovenous fistula malfunctioning and was in [place] and had tunneled catheter placed. Was sent home with home health, comes because of weakness and possible rehab placement. 1. Weakness, ambulatory dysfunction: The patient was in rehab before going to [place]. Seems he did okay on PT, OT at [place] and was sent home with home health, but _daughter was worried about falling at home, so will admit to hospital, PT/OT. Social service to help with possible rehab placement. 2. End-stage renal disease: On hemodialysis. Left AV fistula malfunction. Needs to follow with vascular surgery for revision. Currently on tunneled dialysis catheter. Dialysis as per nephrology. Gets dialysis on Sunday, Sunday, and Fridays. 3. History of severe aortic stenosis, status post transcatheter aortic valve replacement on 02/16/2022. 4. History of type 2 diabetes with peripheral vascular disease, diabetic retinopathy of right eye. Will place him on insulin sliding scale. Currently on diabetic diet and not on any medications. 5. Benign prostatic hypertrophy: On Flomax. 6. History of C. diff: On p.o. vancomycin, last dose was today. 7. Depression: On citalopram. 8. Hyperlipidemia: On statin. 9. AOCD. Will follow labs. 10. Deep venous thrombosis prophylaxis: Sequential compression devices and heparin subQ. DISPOSITION: Closely monitor in the medical floor. PT/OT. Social service to help with discharge planning. Level 1 full code. Job ID: [id number] [facility]
[2022-04-13] MEDS: VANCOMYCIN HCL 125 MG/2.5ML SOLN PO SCH ×3 (05:37→18:00)
[2022-04-13] MEDS: RASPBERRY SYRUP 5 ML UDP PO SCH ×3 (05:37→18:00)
[2022-04-13 07:15] LABS: Basophils # (auto) 0.04 K/uL (0-0.2); Basophils % (auto) 0.5 %; Eosinophils # (auto) 0.79 K/uL (0-0.5); Eosinophils % (auto) 9.4 %; Hematocrit (blood only) 27.9 % (42-52); Hemoglobin 8.8 g/dL (14.0-18.0); Immature Granulocytes # (auto) 0.16 K/uL (0.00-0.02); Immature Granulocytes % (auto) 1.9 %; Lymphocytes # (auto) 1.51 K/uL (1.2-3.4); Lymphocytes % (auto) 17.9 %; Mean Corpuscular Hemoglobin 30.9 pg (25-34); Mean Corpuscular Hgb Conc 31.5 g/dL (32-36); Mean Corpuscular Volume 97.9 fL (80-100); Mean Platelet Volume 9.4 fL (7.4-10.4); Monocytes # (auto) 1.05 K/uL (0.11-0.59); Monocytes % (auto) 12.5 %; Neutrophils # (auto) 4.88 K/uL (1.4-6.5); Neutrophils % (auto) 57.8 %; Platelet Count 202 K/uL (130-400); RDW Coefficient of Variation 15.3 % (11.5-14.5); RDW Standard Deviation 54.7 fL (36.4-46.3); Red Blood Count 2.85 M/uL (4.7-6.1); White Blood Count 8.43 K/uL (4.8-10.8)
--- NOTE | 2022-04-13 07:16 | XRay Report ---
XR chest 1V portable CLINICAL HISTORY: weakness. Evaluate cardiopulmonary status COMPARISON STUDY: 04/07/2022 TECHNIQUE: 1 view of the chest FINDINGS: Single frontal view of the chest demonstrates the cardiomediastinal silhouette to be within normal li mits. Multiport central venous catheter has been placed with its tip extending into the right atrium. There is no evidence for pneumothorax. The lungs are clear of alveolar opacities. There is no eviden ce for pleural effusion. There is no evidence for vascular congestion. There is no acute osseous path ology. IMPRESSION: 1. No acute cardiopulmonary disease. 2. Status post central venous catheter placement. ACT 112: Negative or not required by law. Electronically signed by: Eder Kauffman M.D. 04/13/2022 7:14 AM
[2022-04-13 07:47] LABS: BUN Creatinine Ratio 6.9 (10-20); Calcium 8.7 mg/dl (8.5-10.1); Creatinine Clr Calc Pharmacy 12.4 ml/min; Est GFR (African American) 12.8 ml/min; Est GFR (Non-African American) 11.1 ml/min; Magnesium 1.7 mg/dl (1.7-2.4); Potassium 4.2 mmol/L (3.5-5.1)
[2022-04-13 08:02] LABS: Estimated Average Glucose 103 mg/dl; Hemoglobin A1C 5.2 % (4.5-5.6)
[2022-04-13] MEDS: FLUTICASONE/VILANTEROL 200/25MCG 14 PUFFS/INHALER INH SCH (08:36)
[2022-04-13] MEDS: HEPARIN SOD 5,000 UNIT/0.5 ML VIAL SQ SCH ×2 (08:36→22:11)
[2022-04-13] MEDS: CHOLECALCIFEROL 1,000 UNITS 25 MCG TAB PO SCH (08:37)
[2022-04-13] MEDS: CITALOPRAM 40 MG TAB PO SCH (08:37)
[2022-04-13] MEDS: CALCITRIOL 0.25 MCG CAPSULE PO SCH (08:37)
[2022-04-13] MEDS: TORSEMIDE 20 MG TAB PO SCH (08:37)
[2022-04-13] MEDS: SEVELAMER HCL 800 MG TABLET PO SCH ×3 (08:37→18:00)
[2022-04-13] MEDS: NEPHROCAPS PO SCH (08:37)
[2022-04-13] MEDS: ASPIRIN 81 MG ECTAB PO SCH (08:37)
[2022-04-13] MEDS: INSULIN ASPART PER UNIT SC SCH ×4 (08:47→22:11)
[2022-04-13] MEDS: TAMSULOSIN HCL 0.4 MG CAP PO SCH (22:10)
[2022-04-13] MEDS: ATORVASTATIN 40 MG TAB PO SCH (22:10)
[2022-04-13] MEDS: FINASTERIDE 5 MG TAB PO SCH (22:10)
--- NOTE | 2022-04-14 03:02 | Consultation Report ---
NEPHROLOGY CONSULTATION NOTE REASON FOR CONSULTATION: Dialysis patient admitted with weakness and ambulatory issues. HISTORY OF PRESENT ILLNESS: The patient is a 77-year-old male with ESRD, previously on peritoneal di alysis, now on hemodialysis Sunday, Sunday, Sunday. He recently had small-bowel obstruction causi ng significant issues requiring small bowel resection. After that, he was discharged to [facility]. However, his AV fistula could not be cannulated and after that he was sent over to [facility] after which he was transferred back to [place]. While in [place], he had a tunneled catheter placed for dialysis and also had a fistulogram, which showed dannielle t fistula does have some occlusion. He is supposed to follow up with vascular surgery, but currently the tunneled catheter is being used for dialysis. He was on peritoneal dialysis until last month an d was stopped after he developed small-bowel obstruction with adhesions. His PD catheter was removed during that admission; however, from [place], during this admission, he was discharged home and not to rehabilitation. The patient lives alone with help from his daughter, but as per the daughter, danya brush works and there is nobody at home during the daytime to take care of him. She is very concerned ab out risk of fall and him not able to take care of himself. Because of that, the patient was brought to the hospital yesterday evening. He is currently getting evaluation for possible rehab placement. The patient denies having any nausea, vomiting, chest pain, shortness of breath, orthopnea, PND, or really any other symptoms. ALLERGIES: None. PAST MEDICAL HISTORY: Includes type 2 diabetes; ESRD, on hemodialysis Sunday, Sunday, Sunday, pre viously on peritoneal dialysis; hyperlipidemia; hyperparathyroidism; COPD; peripheral vascular diseas e; hypertension; aortic stenosis; history of small-bowel obstruction requiring surgery; history of C. diff colitis; protein energy malnutrition; BPH; depression; anxiety; tobacco use; aortogram; cardiac catheterization; multiple colonoscopies and EGDs; peritoneal catheter placement and removal. MEDICATIONS: At home was reviewed in detail and is as per the reconciliation list. FAMILY HISTORY: Significant for brother with cancer. No renal disease or dialysis. SOCIAL HISTORY: The patient is single. He smokes half pack a day for 60 years. No alcohol, no drug s. His daughter and son-in-law are very involved with his healthcare. REVIEW OF SYSTEMS: As detailed in the HPI. Other than generalized weakness and poor ambulation, he d id not have any symptoms. Twelve systems reviewed and negative. PHYSICAL EXAMINATION: GENERAL: Elderly white male who appears to have significantly lost weight. He appears ill-appearing , but he is not in any respiratory distress. VITAL SIGNS: Blood pressure is 141/64, pulse rate 62, temperature 36.7, 99% on room air. HEENT: Mucous membrane is moist. NECK: Supple. No jugular venous distention. CHEST: Bilaterally clear to auscultation. CARDIOVASCULAR: S1 and S2 regular. ABDOMEN: Soft, nontender. EXTREMITIES: Show no edema. LABORATORY TEST: Blood work shows hemoglobin of 8.8, WBC count 2.85, BUN 32, creatinine 4.67, sodium 135, potassium 4.2, albumin 3.3. IMAGING DATA: Chest x-ray, no acute cardiopulmonary disease. ASSESSMENT AND PLAN: A 77-year-old male with end-stage renal disease, on hemodialysis Sunday, , Sunday and previously on peritoneal dialysis, which was stopped after he developed small-bowel o bstruction requiring surgical exploration. He is currently admitted because of generalized weakness, ambulatory difficulty and high risk of fall/safety at home. 1. End-stage renal disease: His dialysis days are Sunday, Sunday, Sunday, so we will be doing di alysis tomorrow. We will be using his tunneled catheter. AV fistula still has bruit and thrill and can potentially be salvaged in the near future, but this procedure will be done by vascular surgery a s an outpatient. The patient does not have any overt fluid overload or electrolyte issues. Will do dialysis for 3 hours 30 minutes tomorrow on a 2K bath and take about 1.5-2 kilos off. 2. Generalized weakness: I had a long discussion with the patient's daughter yesterday and she has extreme concern that the patient is very unsafe at home. The patient does like to downplay his sympt oms and problems a lot and because of this, we have run into many problems when he was on PD. As muc h as possible, I would recommend some rehabilitation as an inpatient, either at a rehab hospital or a a retirement facility. However, this will be decided by the hospitalist in the physical thera py team. Thank you very much for the consult. Job ID: [id number]
--- NOTE | 2022-04-14 05:58 | Electrocardiogram Report ---
Test Reason : Blood Pressure : / mmHG Vent. Rate : 081 BPM Atrial Rate : 081 BPM P-R Int : 158 ms QRS Dur : 150 ms QT Int : 432 ms P-R-T Axes : 055 -68 094 degrees QTc Int : 501 ms Normal sinus rhythm Right bundle branch block Left anterior fascicular block Bifascicular block Left ventricular hypertrophy with repolarization abnormality Cannot rule out Septal infarct (cited on or before 12-MAR-2022) Abnormal ECG When compared with ECG of 12-MAR-2022 11:53, Premature atrial complexes are no longer Present Confirmed by Juan Manuel Vega ([id number]) on 04/14/2022 5:57:40 AM Referred By: REFERRED SELF Confirmed By:Juan Manuel Vega
[2022-04-14] MEDS ORDERED: EPOETIN ALFA 10,000 UNITS in SYRINGE 0 ML IV SCH (09:00)
[2022-04-14] MEDS ORDERED: EPOETIN ALFA 10,000 UNITS/ML VIAL IV SCH (09:00)
[2022-04-14] MEDS: INSULIN ASPART PER UNIT SC SCH ×4 (09:05→21:08)
[2022-04-14] MEDS: SEVELAMER HCL 800 MG TABLET PO SCH ×3 (09:25→18:08)
[2022-04-14] MEDS: HEPARIN SOD 5,000 UNIT/0.5 ML VIAL SQ SCH ×2 (10:17→21:09)
--- NOTE | 2022-04-14 14:12 | Hospitalist Progress Note ---
Date of Service April 14, 2022 Assessment & Plan (1) Ambulatory dysfunction: (2) Generalized weakness: Plan: Patient's family will like placement for patient Continue PT/OT CM working on placement (3) ESRD (end stage renal disease) on dialysis: Plan: Reports Left AV fistula malfunction Currently getting HD via HD catheter Nephro on board (4) Diabetes mellitus, type 2: Plan: Continue ISS (5) DVT prophylaxis: Plan: Heparin sq Plan: H/o Severe s/p AVR H/o C diff. Just completed po vancomycin Depression: Continue citalopram BPH: Continue flomax Admission and Anticipated Discharge Date Admission Date: April 13, 2022 Subjective Patient seen and examined Reports some cough and weakness Denied any chest pain, shortness of breath at rest Denied fever, chills, nausea, vomiting, abd pain, diarrhea Physical Exam Constitutional: + well hydrated; no acute distress Eyes: PERRL, conjunctivae normal, anicteric sclerae ENMT: external ear and nose normal, oropharynx normal Respiratory: normal respiratory effort, lungs clear to auscultation Cardiovascular: Rate/Rhythm: regular rate and regular rhythm S1 S2 Chest (Breasts): Additional Comments: Right anterior HD catheter Gastrointestinal (Abdomen): normal bowel sounds, soft, nontender, no hepatosplenomegaly Neurologic: PERRL, EOMI, accommodation nl, no face palsy, no dysarthria Psychiatric: A+Ox3, euthymic affect Results & Data Results & Data ([facility]) Vital Signs (Past 12 Hours) Vital Signs Temp Pulse Pulse Pulse Pulse Resp BP 04/14/22 13:59 36.8 C 64 16 04/14/22 13:40 36.6 C 68 04/14/22 13:15 64 102/53 L 04/14/22 13:00 64 104/48 L 04/14/22 12:45 62 105/49 L 04/14/22 12:30 62 110/47 L 04/14/22 12:15 63 107/49 L 04/14/22 12:00 62 106/47 L 04/14/22 11:45 59 L 95/47 L 04/14/22 11:30 64 88/46 L 04/14/22 11:15 65 88/46 L 04/14/22 11:00 65 91/50 L 04/14/22 10:45 68 104/53 L 04/14/22 10:30 73 100/47 L 04/14/22 10:15 73 88/50 L 04/14/22 10:00 68 114/55 L 04/14/22 09:53 71 122/55 L 04/14/22 09:51 36.8 C 71 04/14/22 07:11 36.8 C 71 16 BP Pulse Ox 04/14/22 13:59 133/64 92 04/14/22 13:40 135/57 L 04/14/22 13:15 04/14/22 13:00 04/14/22 12:45 04/14/22 12:30 04/14/22 12:15 04/14/22 12:00 04/14/22 11:45 04/14/22 11:30 04/14/22 11:15 04/14/22 11:00 04/14/22 10:45 04/14/22 10:30 04/14/22 10:15 04/14/22 10:00 04/14/22 09:53 04/14/22 09:51 04/14/22 07:11 145/66 H 97 Laboratory Results Abnormal lab results 04/13/22 04/14/22 04/14/22 Range/Units 20:50 08:12 13:56 POC Glucose 100 H 127 H 113 H (70-99) mg/dl
[2022-04-14] MEDS: TORSEMIDE 20 MG TAB PO SCH (14:26)
[2022-04-14] MEDS: NEPHROCAPS PO SCH (14:27)
[2022-04-14] MEDS: CALCITRIOL 0.25 MCG CAPSULE PO SCH (14:27)
[2022-04-14] MEDS: FLUTICASONE/VILANTEROL 200/25MCG 14 PUFFS/INHALER INH SCH (14:27)
[2022-04-14] MEDS: CITALOPRAM 40 MG TAB PO SCH (14:27)
[2022-04-14] MEDS: CHOLECALCIFEROL 1,000 UNITS 25 MCG TAB PO SCH (14:27)
[2022-04-14] MEDS: ASPIRIN 81 MG ECTAB PO SCH (14:27)
--- NOTE | 2022-04-14 15:37 | Dialysis Progress Note ---
Date of Service April 14, 2022 Assessment & Plan Admission and Anticipated Discharge Date Admission Date: April 13, 2022 Subjective S--had dialysis earlier today. No new issues PHYSICAL EXAMINATION: GENERAL: Elderly white male who appears to have significantly lost weight. He appears ill-appearing, but he is not in any respiratory distress. HEENT: Mucous membrane is moist. NECK: Supple. No jugular venous distention. CHEST: Bilaterally clear to auscultation. CARDIOVASCULAR: S1 and S2 regular. ABDOMEN: Soft, nontender. EXTREMITIES: Show no edema. LABORATORY TEST: reviewed IMAGING DATA: Chest x-ray, no acute cardiopulmonary disease. ASSESSMENT AND PLAN: A 77-year-old male with end-stage renal disease, on hemodialysis Sunday, Sunday, Sunday and previously on peritoneal dialysis, which was stopped after he developed small-bowel obstruction requiring surgical exploration. He is currently admitted because of generalized weakness, ambulatory difficulty and high risk of fall/safety at home. 1. End-stage renal disease: His dialysis days are Sunday, Sunday, Sunday, so we will be doing dialysis again if still inpt on Sunday. We will be using his tunneled catheter. AV fistula still has bruit and thrill and can potentially be salvaged in the near future, but this procedure will be done by vascular surgery as an outpatient. The patient does not have any overt fluid overload or electrolyte issues. Will do dialysis for 3 hours 30 minutes tomorrow on a 2K bath and take about 1.5-2 kilos off. 2. Generalized weakness: I had a long discussion with the patient's daughter yesterday and she has extreme concern that the patient is very unsafe at home. The patient does like to downplay his symptoms and problems a lot and because of this, we have run into many problems when he was on PD. As much as possible, I would recommend some rehabilitation as an inpatient, either at a rehab hospital or at a [facility] facility. However, this will be decided by the hospitalist in the physical therapy team. Results & Data ([facility]) Vital Signs (Past 12 Hours) Vital Signs Temp Pulse Pulse Pulse Pulse Resp BP 04/14/22 15:10 36.8 C 73 16 04/14/22 13:59 36.8 C 64 16 04/14/22 13:40 36.6 C 68 04/14/22 13:15 64 102/53 L 04/14/22 13:00 64 104/48 L 04/14/22 12:45 62 105/49 L 04/14/22 12:30 62 110/47 L 04/14/22 12:15 63 107/49 L 04/14/22 12:00 62 106/47 L 04/14/22 11:45 59 L 95/47 L 04/14/22 11:30 64 88/46 L 04/14/22 11:15 65 88/46 L 04/14/22 11:00 65 91/50 L 04/14/22 10:45 68 104/53 L 04/14/22 10:30 73 100/47 L 04/14/22 10:15 73 88/50 L 04/14/22 10:00 68 114/55 L 04/14/22 09:53 71 122/55 L 04/14/22 09:51 36.8 C 71 04/14/22 07:11 36.8 C 71 16 BP Pulse Ox 04/14/22 15:10 151/62 H 98 04/14/22 13:59 133/64 92 04/14/22 13:40 135/57 L 04/14/22 13:15 04/14/22 13:00 04/14/22 12:45 04/14/22 12:30 04/14/22 12:15 04/14/22 12:00 04/14/22 11:45 04/14/22 11:30 04/14/22 11:15 04/14/22 11:00 04/14/22 10:45 04/14/22 10:30 04/14/22 10:15 04/14/22 10:00 04/14/22 09:53 04/14/22 09:51 04/14/22 07:11 145/66 H 97
[2022-04-14] MEDS: FINASTERIDE 5 MG TAB PO SCH (21:10)
[2022-04-14] MEDS: ATORVASTATIN 40 MG TAB PO SCH (21:10)
[2022-04-14] MEDS: TAMSULOSIN HCL 0.4 MG CAP PO SCH (21:10)
[2022-04-15 06:53] LABS: BUN Creatinine Ratio 8.3 (10-20); Calcium 8.4 mg/dl (8.5-10.1); Creatinine Clr Calc Pharmacy 13.3 ml/min; Est GFR (Non-African American) 12.1 ml/min; Potassium 3.9 mmol/L (3.5-5.1)
[2022-04-15 08:01] LABS: HBSAG NON-REACTIVE (NON-REACTIVE)
[2022-04-15] MEDS: SEVELAMER HCL 800 MG TABLET PO SCH ×3 (09:06→17:28)
[2022-04-15] MEDS: CITALOPRAM 40 MG TAB PO SCH (09:09)
[2022-04-15] MEDS: NEPHROCAPS PO SCH (09:09)
[2022-04-15] MEDS: ASPIRIN 81 MG ECTAB PO SCH (09:09)
[2022-04-15] MEDS: FLUTICASONE/VILANTEROL 200/25MCG 14 PUFFS/INHALER INH SCH (09:09)
[2022-04-15] MEDS: CHOLECALCIFEROL 1,000 UNITS 25 MCG TAB PO SCH (09:10)
[2022-04-15] MEDS: TORSEMIDE 20 MG TAB PO SCH (09:10)
[2022-04-15] MEDS: CALCITRIOL 0.25 MCG CAPSULE PO SCH (09:10)
[2022-04-15] MEDS: HEPARIN SOD 5,000 UNIT/0.5 ML VIAL SQ SCH ×2 (09:13→20:42)
[2022-04-15] MEDS: INSULIN ASPART PER UNIT SC SCH ×4 (09:18→21:00)
--- NOTE | 2022-04-15 11:42 | Hospitalist Progress Note ---
Date of Service April 15, 2022 Assessment & Plan (1) Ambulatory dysfunction: (2) Generalized weakness: Plan: Patient's family will like placement for patient Continue PT/OT CM working on placement (3) ESRD (end stage renal disease) on dialysis: Plan: Reports Left AV fistula malfunction Currently getting HD via HD catheter HD on [facility] Nephro on board (4) Diabetes mellitus, type 2: Plan: Continue ISS (5) DVT prophylaxis: Plan: Heparin sq Plan: H/o Severe s/p AVR H/o C diff. Just completed po vancomycin Depression: Continue citalopram BPH: Continue flomax Admission and Anticipated Discharge Date Admission Date: April 13, 2022 Subjective Patient seen and examined Reports only weakness today. Denies cough Denied any chest pain, shortness of breath at rest Denied fever, chills, nausea, vomiting, abd pain, diarrhea Physical Exam Constitutional: + well hydrated; no acute distress Eyes: PERRL, conjunctivae normal, anicteric sclerae ENMT: external ear and nose normal, oropharynx normal Respiratory: normal respiratory effort, lungs clear to auscultation Cardiovascular: Rate/Rhythm: regular rate and regular rhythm S1 S2 Gastrointestinal (Abdomen): normal bowel sounds, soft, nontender, no hepatosplenomegaly Neurologic: PERRL, EOMI, accommodation nl, no face palsy, no dysarthria Psychiatric: Alert and oriented to person, place, time (month and year only). Euthymic affect Results & Data Results & Data ([facility]) Vital Signs (Past 12 Hours) Vital Signs Temp Pulse Resp BP Pulse Ox 04/15/22 09:08 116/68 04/15/22 07:21 36.7 C 66 16 159/71 H 97 Laboratory Results Abnormal lab results 04/14/22 04/14/22 04/14/22 Range/Units 13:56 17:10 20:52 Sodium (136-145) mmol/L BUN (6-23) mg/dl Creatinine (0.6-1.4) mg/dl BUN/Creatinine Ratio (10-20) Glucose (70-99(Fasting)) mg/dl POC Glucose 113 H 143 H 164 H (70-99) mg/dl Calcium (8.5-10.1) mg/dl 04/15/22 04/15/22 04/15/22 Range/Units 05:52 08:07 11:46 Sodium 133 L (136-145) mmol/L BUN 36 H (6-23) mg/dl Creatinine 4.34 H D (0.6-1.4) mg/dl BUN/Creatinine Ratio 8.3 L (10-20) Glucose 128 H (70-99(Fasting)) mg/dl POC Glucose 135 H 225 H (70-99) mg/dl Calcium 8.4 L (8.5-10.1) mg/dl
[2022-04-15] MEDS: TAMSULOSIN HCL 0.4 MG CAP PO SCH (20:42)
[2022-04-15] MEDS: ATORVASTATIN 40 MG TAB PO SCH (20:42)
[2022-04-15] MEDS: FINASTERIDE 5 MG TAB PO SCH (20:42)
[2022-04-16] MEDS: SEVELAMER HCL 800 MG TABLET PO SCH ×3 (08:34→17:40)
[2022-04-16] MEDS: CALCITRIOL 0.25 MCG CAPSULE PO SCH (08:35)
[2022-04-16] MEDS: NEPHROCAPS PO SCH (08:35)
[2022-04-16] MEDS: TORSEMIDE 20 MG TAB PO SCH (08:35)
[2022-04-16] MEDS: CHOLECALCIFEROL 1,000 UNITS 25 MCG TAB PO SCH (08:35)
[2022-04-16] MEDS: HEPARIN SOD 5,000 UNIT/0.5 ML VIAL SQ SCH ×2 (08:35→20:12)
[2022-04-16] MEDS: CITALOPRAM 40 MG TAB PO SCH (08:35)
[2022-04-16] MEDS: ASPIRIN 81 MG ECTAB PO SCH (08:35)
[2022-04-16] MEDS: INSULIN ASPART PER UNIT SC SCH ×4 (08:36→21:50)
[2022-04-16] MEDS: FLUTICASONE/VILANTEROL 200/25MCG 14 PUFFS/INHALER INH SCH (08:36)
[2022-04-16 08:43] LABS: Hematocrit (blood only) 29.8 % (42-52); Hemoglobin 9.2 g/dL (14.0-18.0); Mean Corpuscular Hemoglobin 30.3 pg (25-34); Mean Corpuscular Hgb Conc 30.9 g/dL (32-36); Mean Platelet Volume 9.4 fL (7.4-10.4); Platelet Count 196 K/uL (130-400); RDW Coefficient of Variation 15.1 % (11.5-14.5); RDW Standard Deviation 53.5 fL (36.4-46.3); Red Blood Count 3.04 M/uL (4.7-6.1); White Blood Count 10.46 K/uL (4.8-10.8)
--- NOTE | 2022-04-16 11:06 | Nephrology Progress Note ---
Date of Service April 16, 2022 Assessment & Plan (1) ESRD (end stage renal disease) on dialysis: Plan: His dialysis days are Sunday, Sunday, Sunday, , Access- TDC tunneled , He has a AV fistula still has bruit and thrill and can potentially be salvaged in the near future The patient does not have any overt fluid overload or electrolyte issues. -Will do dialysis for 3 hours 30 minutes tomorrow on a 2K bath and take about 1.5-2 kilos off. (2) Generalized weakness: Plan: Needs PT/ and discharge to rehabilitation - Waiting placement. Admission and Anticipated Discharge Date Admission Date: April 13, 2022 Subjective No new issues, Resting comfortably Review of Systems Review of Systems: All systems reviewed & are unremarkable except as noted in HPI & below Physical Exam Physical Exam: GENERAL:Comfortable, no new complains HEENT: Mucous membrane is moist. NECK: Supple. No jugular venous distention. CHEST: Bilaterally clear to auscultation. CARDIOVASCULAR: S1 and S2 regular. ABDOMEN: Soft, nontender. EXTREMITIES: Show no edema. Results & Data ([facility]) Vital Signs (Past 12 Hours) Vital Signs Temp Pulse Resp BP Pulse Ox 04/16/22 07:12 36.7 C 60 16 119/61 99 Laboratory Results 04/16/22 08:08 04/15/22 05:52
--- NOTE | 2022-04-16 13:45 | Hospitalist Progress Note ---
Date of Service April 16, 2022 Assessment & Plan (1) Ambulatory dysfunction: (2) Generalized weakness: Plan: Patient's family will like placement for patient Continue PT/OT CM working on placement (3) ESRD (end stage renal disease) on dialysis: Plan: Reports Left AV fistula malfunction Currently getting HD via HD catheter HD on [facility] Nephro on board (4) Diabetes mellitus, type 2: Plan: Continue ISS (5) DVT prophylaxis: Plan: Heparin sq Plan: H/o Severe s/p AVR H/o C diff. Just completed po vancomycin Depression: Continue citalopram BPH: Continue flomax Admission and Anticipated Discharge Date Admission Date: April 13, 2022 Subjective Patient seen and examined Denied any complaints today Denies cough, chest pain, shortness of breath at rest Denied fever, chills, nausea, vomiting, abd pain, diarrhea Physical Exam Constitutional: + well hydrated; no acute distress Eyes: PERRL, conjunctivae normal, anicteric sclerae ENMT: external ear and nose normal, oropharynx normal Respiratory: normal respiratory effort, lungs clear to auscultation Cardiovascular: Rate/Rhythm: regular rate and regular rhythm S1 S2 Gastrointestinal (Abdomen): normal bowel sounds, soft, nontender, no hepatosplenomegaly Neurologic: PERRL, EOMI, accommodation nl, no face palsy, no dysarthria Psychiatric: A+Ox3, euthymic affect Results & Data Results & Data ([facility]) Vital Signs (Past 12 Hours) Vital Signs Temp Pulse Resp BP Pulse Ox 04/16/22 07:12 36.7 C 60 16 119/61 99 Laboratory Results Abnormal lab results 04/15/22 04/16/22 04/16/22 Range/Units 20:43 08:04 08:08 RBC 3.04 L (4.7-6.1) M/uL Hgb 9.2 L (14.0-18.0) g/dL Hct 29.8 L (42-52) % MCHC 30.9 L (32-36) g/dL RDW Std Deviation 53.5 H (36.4-46.3) fL RDW Coeff of Danny 15.1 H (11.5-14.5) % POC Glucose 101 H 100 H (70-99) mg/dl 04/16/22 Range/Units 12:06 RBC (4.7-6.1) M/uL Hgb (14.0-18.0) g/dL Hct (42-52) % MCHC (32-36) g/dL RDW Std Deviation (36.4-46.3) fL RDW Coeff of Danny (11.5-14.5) % POC Glucose 169 H (70-99) mg/dl
[2022-04-16] MEDS: FINASTERIDE 5 MG TAB PO SCH (20:12)
[2022-04-16] MEDS: ATORVASTATIN 40 MG TAB PO SCH (20:12)
[2022-04-16] MEDS: TAMSULOSIN HCL 0.4 MG CAP PO SCH (20:13)
[2022-04-17 06:17] LABS: Hematocrit (blood only) 27.1 % (42-52); Hemoglobin 8.7 g/dL (14.0-18.0); Mean Corpuscular Hemoglobin 31.4 pg (25-34); Mean Corpuscular Hgb Conc 32.1 g/dL (32-36); Mean Corpuscular Volume 97.8 fL (80-100); Mean Platelet Volume 9.1 fL (7.4-10.4); Platelet Count 210 K/uL (130-400); RDW Coefficient of Variation 14.6 % (11.5-14.5); RDW Standard Deviation 51.8 fL (36.4-46.3); Red Blood Count 2.77 M/uL (4.7-6.1); White Blood Count 10.37 K/uL (4.8-10.8)
[2022-04-17 06:45] LABS: BUN Creatinine Ratio 8.2 (10-20); Calcium 8.4 mg/dl (8.5-10.1); Est GFR (African American) 7.6 ml/min; Est GFR (Non-African American) 6.5 ml/min; Potassium 4.4 mmol/L (3.5-5.1)
[2022-04-17] MEDS ORDERED: SODIUM CHLORIDE 0.9% 1000ML 1,000 ML IV PRN ×2 (07:00→09:06)
[2022-04-17] MEDS: SEVELAMER HCL 800 MG TABLET PO SCH ×3 (08:26→18:50)
[2022-04-17] MEDS: FLUTICASONE/VILANTEROL 200/25MCG 14 PUFFS/INHALER INH SCH (08:29)
[2022-04-17] MEDS: CALCITRIOL 0.25 MCG CAPSULE PO SCH (08:29)
[2022-04-17] MEDS: NEPHROCAPS PO SCH (08:29)
[2022-04-17] MEDS: CHOLECALCIFEROL 1,000 UNITS 25 MCG TAB PO SCH (08:30)
[2022-04-17] MEDS: ASPIRIN 81 MG ECTAB PO SCH (08:30)
[2022-04-17] MEDS: TORSEMIDE 20 MG TAB PO SCH (08:30)
[2022-04-17] MEDS: CITALOPRAM 40 MG TAB PO SCH (08:31)
[2022-04-17] MEDS: HEPARIN SOD 5,000 UNIT/0.5 ML VIAL SQ SCH ×2 (08:31→21:26)
[2022-04-17] MEDS ORDERED: HEPARIN SOD (PORCINE) 1000 UNIT/ML IV ONE (09:06)
[2022-04-17] MEDS: INSULIN ASPART PER UNIT SC SCH ×4 (09:30→21:25)
[2022-04-17] MEDS ORDERED: EPOETIN ALFA 10,000 UNITS/ML VIAL IV SCH (09:30)
--- NOTE | 2022-04-17 14:14 | Hospitalist Progress Note ---
Date of Service April 17, 2022 Assessment & Plan (1) Ambulatory dysfunction: (2) Generalized weakness: Plan: Patient's family will like placement for patient Continue PT/OT CM working on placement (3) ESRD (end stage renal disease) on dialysis: Plan: Reports Left AV fistula malfunction Currently getting HD via HD catheter HD on [facility] Nephro on board (4) Diabetes mellitus, type 2: Plan: Continue ISS (5) DVT prophylaxis: Plan: Heparin sq Plan: H/o Severe s/p AVR H/o C diff. Just completed po vancomycin Depression: Continue citalopram BPH: Continue flomax Admission and Anticipated Discharge Date Admission Date: April 13, 2022 Subjective Patient seen and examined Denied any complaints today Denies cough, chest pain, shortness of breath at rest Denied fever, chills Denied nausea, vomiting, abd pain, diarrhea Physical Exam Constitutional: + well hydrated; no acute distress Eyes: PERRL, conjunctivae normal, anicteric sclerae ENMT: external ear and nose normal, oropharynx normal Respiratory: normal respiratory effort, lungs clear to auscultation Cardiovascular: Rate/Rhythm: regular rate and regular rhythm S1 S2 Gastrointestinal (Abdomen): normal bowel sounds, soft, nontender, no hepatosplenomegaly Musculoskeletal: No pedal edema Neurologic: PERRL, EOMI, accommodation nl, no face palsy, no dysarthria Psychiatric: A+Ox3, euthymic affect Results & Data Results & Data ([facility]) Vital Signs (Past 12 Hours) Vital Signs Temp Pulse Resp BP Pulse Ox 04/17/22 08:28 61 147/61 H 04/17/22 07:17 36.7 C 58 L 16 151/68 H 99 Laboratory Results Abnormal lab results 04/16/22 04/17/22 04/17/22 Range/Units 21:38 05:52 05:52 RBC 2.77 L (4.7-6.1) M/uL Hgb 8.7 L (14.0-18.0) g/dL Hct 27.1 L (42-52) % RDW Std Deviation 51.8 H (36.4-46.3) fL RDW Coeff of Danny 14.6 H (11.5-14.5) % Sodium 134 L (136-145) mmol/L Anion Gap 14 H (3-11) BUN 59 H D (6-23) mg/dl Creatinine 7.23 H* D (0.6-1.4) mg/dl BUN/Creatinine Ratio 8.2 L (10-20) POC Glucose 113 H (70-99) mg/dl Calcium 8.4 L (8.5-10.1) mg/dl 04/17/22 04/17/22 Range/Units 08:14 12:09 RBC (4.7-6.1) M/uL Hgb (14.0-18.0) g/dL Hct (42-52) % RDW Std Deviation (36.4-46.3) fL RDW Coeff of Danny (11.5-14.5) % Sodium (136-145) mmol/L Anion Gap (3-11) BUN (6-23) mg/dl Creatinine (0.6-1.4) mg/dl BUN/Creatinine Ratio (10-20) POC Glucose 115 H 174 H (70-99) mg/dl Calcium (8.5-10.1) mg/dl
[2022-04-17] MEDS: HEPARIN SOD (PORCINE) 1000 UNIT/ML IV SCH (15:54)
--- NOTE | 2022-04-17 19:08 | Dialysis Progress Note ---
Date of Service April 17, 2022 Assessment & Plan (1) ESRD (end stage renal disease) on dialysis: Plan: His dialysis days are Sunday, Sunday, Sunday, , Access- TDC tunneled , He has a AV fistula still has bruit and thrill and can potentially be salvaged in the near future The patient does not have any overt fluid overload or electrolyte issues. -did dialysis for 3 hours 30 minutes today on a 2K bath and tolerated 2.5L off next HD on 04/19 or as needs dictate (2) Generalized weakness: Plan: Needs PT/ and discharge to rehabilitation - Waiting placement. Admission and Anticipated Discharge Date Admission Date: April 13, 2022 Subjective seen on HD at about 1650; tx going well; denies sob, n/v/abd pain, edema Review of Systems Review of Systems: All systems reviewed & are unremarkable except as noted in Subjective Physical Exam Constitutional: well developed, well nourished and cooperative; no acute distress Eyes: EOM intact bilaterally ENMT: Ears: no external ear abnormality Nose: no external nose abnormality Mouth: + dry oral mucous membranes Neck: no nuchal rigidity Respiratory: normal respiratory effort Auscultation: + diminished lung sounds Gastrointestinal (Abdomen): Inspection/Auscultation: normal bowel sounds and + abdominal surgical incision (well healed) Percussion/Palpation: abdomen soft; abdomen nontender Musculoskeletal: Extremities: strength 5/5 throughout Skin: no rashes, warm and dry Neurologic: albarran, fluent speech, no tremor Psychiatric: Orientation: oriented x 3 Results & Data ([facility]) Vital Signs (Past 12 Hours) Vital Signs Temp Pulse Pulse Pulse Resp BP BP 04/17/22 17:51 36.6 C 68 126/57 L 04/17/22 17:20 62 94/50 L 04/17/22 17:00 56 L 102/48 L 04/17/22 16:40 56 L 102/48 L 04/17/22 16:20 56 L 98/57 L 04/17/22 16:00 67 136/118 H 04/17/22 15:40 61 104/54 L 04/17/22 15:20 60 102/50 L 04/17/22 15:00 61 100/56 L 04/17/22 14:40 62 112/56 L 04/17/22 14:20 63 96/49 L 04/17/22 14:00 61 112/57 L 04/17/22 13:50 36.6 C 62 04/17/22 13:45 36.6 C 62 04/17/22 08:28 61 147/61 H 04/17/22 07:17 36.7 C 58 L 16 151/68 H Pulse Ox 04/17/22 17:51 04/17/22 17:20 04/17/22 17:00 04/17/22 16:40 04/17/22 16:20 04/17/22 16:00 04/17/22 15:40 04/17/22 15:20 04/17/22 15:00 04/17/22 14:40 04/17/22 14:20 04/17/22 14:00 04/17/22 13:50 04/17/22 13:45 04/17/22 08:28 04/17/22 07:17 99 Laboratory Results 04/17/22 05:52 04/17/22 05:52
[2022-04-17] MEDS: ATORVASTATIN 40 MG TAB PO SCH (21:26)
[2022-04-17] MEDS: FINASTERIDE 5 MG TAB PO SCH (21:26)
[2022-04-17] MEDS: TAMSULOSIN HCL 0.4 MG CAP PO SCH (21:27)
[2022-04-18 07:01] LABS: BUN Creatinine Ratio 5.6 (10-20); Calcium 8.7 mg/dl (8.5-10.1); Creatinine Clr Calc Pharmacy 12.9 ml/min; Est GFR (African American) 13.5 ml/min; Est GFR (Non-African American) 11.7 ml/min; Potassium 4.3 mmol/L (3.5-5.1)
[2022-04-18] MEDS: SEVELAMER HCL 800 MG TABLET PO SCH ×3 (08:42→17:47)
[2022-04-18] MEDS: ASPIRIN 81 MG ECTAB PO SCH (08:42)
[2022-04-18] MEDS: CALCITRIOL 0.25 MCG CAPSULE PO SCH (08:42)
[2022-04-18] MEDS: FLUTICASONE/VILANTEROL 200/25MCG 14 PUFFS/INHALER INH SCH (08:43)
[2022-04-18] MEDS: CHOLECALCIFEROL 1,000 UNITS 25 MCG TAB PO SCH (08:43)
[2022-04-18] MEDS: CITALOPRAM 40 MG TAB PO SCH (08:43)
[2022-04-18] MEDS: NEPHROCAPS PO SCH (08:43)
[2022-04-18] MEDS: HEPARIN SOD 5,000 UNIT/0.5 ML VIAL SQ SCH ×2 (08:44→20:32)
[2022-04-18] MEDS: INSULIN ASPART PER UNIT SC SCH ×4 (08:56→20:36)
[2022-04-18] MEDS: TORSEMIDE 20 MG TAB PO SCH (10:02)
--- NOTE | 2022-04-18 10:48 | Nephrology Progress Note ---
Date of Service April 18, 2022 Assessment & Plan (1) ESRD (end stage renal disease) on dialysis: Plan: His dialysis days are Sunday, Sunday, Sunday, , Access- TDC tunneled , He has a AV fistula still has bruit and thrill and can potentially be salvaged in the near future The patient does not have any overt fluid overload or electrolyte issues. -did dialysis for 3 hours 30 minutes 04/17 on a 2K bath and tolerated 2.5L off >> BP are labile; today w/ lower bp next HD on 04/19 or as needs dictate -stopped torsemide (2) Generalized weakness: Plan: Needs PT/ and discharge to [facility] facility[facility] - Waiting placement. Admission and Anticipated Discharge Date Admission Date: April 13, 2022 Physical Exam Constitutional: well developed, well nourished and cooperative; no acute distress Eyes: EOM intact bilaterally ENMT: Ears: no external ear abnormality Nose: no external nose abnormality Mouth: + dry oral mucous membranes Neck: no nuchal rigidity Respiratory: normal respiratory effort Auscultation: + diminished lung sounds Gastrointestinal (Abdomen): Inspection/Auscultation: normal bowel sounds and + abdominal surgical incision (well healed) Percussion/Palpation: abdomen soft; abdomen nontender Musculoskeletal: Extremities: strength 5/5 throughout Skin: no rashes, warm and dry Psychiatric: Orientation: oriented x 3 Results & Data ([facility]) Vital Signs (Past 12 Hours) Vital Signs Temp Pulse Pulse Resp BP Pulse Ox 04/18/22 09:52 90/52 L 04/18/22 08:53 91/53 L 04/18/22 07:21 36.8 C 62 16 127/57 L 97 04/17/22 23:24 37.1 C 66 18 145/64 H 96 Laboratory Results 04/17/22 05:52 04/18/22 06:12
--- NOTE | 2022-04-18 16:16 | Hospitalist Progress Note ---
Date of Service April 18, 2022 Assessment & Plan (1) Ambulatory dysfunction: (2) Generalized weakness: Plan: Patient's family will like placement for patient Continue PT/OT while inpatient CM working on placement (3) ESRD (end stage renal disease) on dialysis: Plan: Reports Left AV fistula malfunction Currently getting HD via HD catheter HD on MWF Nephro on board Torsemide discontinued per nephro (4) Diabetes mellitus, type 2: Plan: Continue ISS (5) DVT prophylaxis: Plan: Heparin sq Plan: H/o Severe s/p AVR H/o C diff. Just completed po vancomycin Depression: Continue citalopram BPH: Continue flomax Admission and Anticipated Discharge Date Admission Date: April 13, 2022 Subjective Patient seen and examined Denied any complaints today Denies cough, chest pain, shortness of breath at rest Denied nausea, vomiting, abd pain, diarrhea No fevers. Denied chills Physical Exam Constitutional: + well hydrated; no acute distress Eyes: PERRL, conjunctivae normal, anicteric sclerae ENMT: external ear and nose normal, oropharynx normal Respiratory: normal respiratory effort, lungs clear to auscultation Cardiovascular: Rate/Rhythm: regular rate and regular rhythm S1 S2 Gastrointestinal (Abdomen): normal bowel sounds, soft, nontender, no hepatosplenomegaly Musculoskeletal: No pedal edema Neurologic: PERRL, EOMI, accommodation nl, no face palsy, no dysarthria Psychiatric: A+Ox3, euthymic affect Results & Data Results & Data ([facility]) Vital Signs (Past 12 Hours) Vital Signs Temp Pulse Pulse Resp BP Pulse Ox 04/18/22 16:07 36.6 C 60 18 107/62 98 04/18/22 15:48 36.7 C 56 L 16 152/67 H 99 04/18/22 13:45 136/71 04/18/22 09:52 90/52 L 04/18/22 08:53 91/53 L 04/18/22 07:21 36.8 C 62 16 127/57 L 97 Laboratory Results Abnormal lab results 04/17/22 04/18/22 04/18/22 Range/Units 20:25 06:12 08:05 BUN 25 H D (6-23) mg/dl Creatinine 4.47 H D (0.6-1.4) mg/dl BUN/Creatinine Ratio 5.6 L (10-20) POC Glucose 145 H 101 H (70-99) mg/dl 04/18/22 Range/Units 12:10 BUN (6-23) mg/dl Creatinine (0.6-1.4) mg/dl BUN/Creatinine Ratio (10-20) POC Glucose 131 H (70-99) mg/dl
[2022-04-18] MEDS: FINASTERIDE 5 MG TAB PO SCH (20:32)
[2022-04-18] MEDS: ATORVASTATIN 40 MG TAB PO SCH (20:32)
[2022-04-18] MEDS: TAMSULOSIN HCL 0.4 MG CAP PO SCH (20:33)
[2022-04-19] MEDS ORDERED: SODIUM CHLORIDE 0.9% 1000ML 1,000 ML IV PRN (07:11)
[2022-04-19] MEDS ORDERED: HEPARIN SOD (PORCINE) 1000 UNIT/ML IV ONE (07:11)
[2022-04-19] MEDS ORDERED: EPOETIN ALFA 10,000 UNITS/ML VIAL IV ONE (07:30)
[2022-04-19 08:03] LABS: Hemoglobin 9.5 g/dL (14.0-18.0); Mean Corpuscular Hgb Conc 30.6 g/dL (32-36); Mean Corpuscular Volume 97.8 fL (80-100); Mean Platelet Volume 9.8 fL (7.4-10.4); Platelet Count 212 K/uL (130-400); RDW Coefficient of Variation 14.8 % (11.5-14.5); RDW Standard Deviation 53.2 fL (36.4-46.3); Red Blood Count 3.17 M/uL (4.7-6.1); White Blood Count 9.61 K/uL (4.8-10.8)
[2022-04-19 08:22] LABS: BUN Creatinine Ratio 5.9 (10-20); Calcium 8.8 mg/dl (8.5-10.1); Creatinine Clr Calc Pharmacy 9.8 ml/min; Est GFR (African American) 9.6 ml/min; Est GFR (Non-African American) 8.3 ml/min; Potassium 5.1 mmol/L (3.5-5.1)
[2022-04-19] MEDS: CITALOPRAM 40 MG TAB PO SCH (08:49)
[2022-04-19] MEDS: CHOLECALCIFEROL 1,000 UNITS 25 MCG TAB PO SCH (08:49)
[2022-04-19] MEDS: ASPIRIN 81 MG ECTAB PO SCH (08:49)
[2022-04-19] MEDS: NEPHROCAPS PO SCH (08:49)
[2022-04-19] MEDS: SEVELAMER HCL 800 MG TABLET PO SCH ×3 (08:49→17:59)
[2022-04-19] MEDS: CALCITRIOL 0.25 MCG CAPSULE PO SCH (08:50)
[2022-04-19] MEDS: INSULIN ASPART PER UNIT SC SCH ×4 (08:50→21:44)
[2022-04-19] MEDS: FLUTICASONE/VILANTEROL 200/25MCG 14 PUFFS/INHALER INH SCH (08:50)
[2022-04-19] MEDS: HEPARIN SOD 5,000 UNIT/0.5 ML VIAL SQ SCH ×2 (08:50→21:44)
--- NOTE | 2022-04-19 10:18 | Dialysis Progress Note ---
Date of Service April 19, 2022 Assessment & Plan (1) ESRD (end stage renal disease) on dialysis: Plan: His dialysis days are Sunday, Sunday, Sunday, , Access- TDC tunneled , He has a AV fistula still has bruit and thrill and can potentially be salvaged in the near future The patient does not have any overt fluid overload or electrolyte issues today or generally ; BP labile today and had to cut back on UF target accordingly -did dialysis for 3 hours 30 minutes 04/17 on a 2K bath and tolerated 2.5L off >> BP are labile; today w/ lower bp; will run 3h d(shorter d/t nursing scheduler) and aim for 2L off next HD on 04/21 or as needs dictate -stopped torsemide (2) Generalized weakness: Plan: Needs PT/ and discharge to [facility] facility[facility] - Waiting placement. Admission and Anticipated Discharge Date Admission Date: April 13, 2022 Subjective no c/o sob, weakness, n/v, pain in abd/chest/musc skel; no diarrhea Review of Systems Review of Systems: All systems reviewed & are unremarkable except as noted in Subjective Physical Exam Constitutional: well developed and + thin; no acute distress Eyes: EOM intact bilaterally ENMT: Ears: no external ear abnormality Nose: no external nose abnormality Mouth: + dry oral mucous membranes Neck: no nuchal rigidity Respiratory: normal respiratory effort Auscultation: + diminished lung sounds Cardiovascular: Rate/Rhythm: regular rate and regular rhythm Extremities: + AV fistula (+t/b); no edema Gastrointestinal (Abdomen): Inspection/Auscultation: normal bowel sounds Percussion/Palpation: abdomen soft; abdomen nontender Musculoskeletal: Extremities: strength 5/5 throughout Skin: no rashes, warm and dry Neurologic: albarran, fluent speech, no tremor Psychiatric: Orientation: oriented to person and oriented to place Results & Data ([facility]) Vital Signs (Past 12 Hours) Vital Signs Temp Pulse Resp BP Pulse Ox 04/19/22 07:13 36.8 C 55 L 16 126/56 L 97 04/18/22 22:29 36.7 C 57 L 16 163/68 H 100 Laboratory Results 04/19/22 06:57 04/19/22 06:57
[2022-04-19] MEDS: HEPARIN SOD (PORCINE) 1000 UNIT/ML IV SCH (10:44)
[2022-04-19] MEDS: CARBOHYDRATES FOR HYPOGLYCEMIA PO PRN ×2 (20:52→21:22)
[2022-04-19] MEDS: ATORVASTATIN 40 MG TAB PO SCH (21:43)
[2022-04-19] MEDS: FINASTERIDE 5 MG TAB PO SCH (21:43)
[2022-04-19] MEDS: TAMSULOSIN HCL 0.4 MG CAP PO SCH (21:45)
--- NOTE | 2022-04-20 01:13 | Hospitalist Progress Note ---
Date of Service April 19, 2022 Assessment & Plan (1) Ambulatory dysfunction: (2) Generalized weakness: Plan: Patient's family will like placement for patient Continue PT/OT while inpatient CM working on placement Insurance denies inpatient rehab, will try to do peer to peer review (3) ESRD (end stage renal disease) on dialysis: Plan: Reports Left AV fistula malfunction Currently getting HD via HD catheter HD on MWF Nephro on board Torsemide discontinued per nephro (4) Diabetes mellitus, type 2: Plan: Most recent hab1c 5.9 on 04/13/22 Continue ISS Continue monitor BS H/o Severe s/p AVR H/o C diff. Just completed po vancomycin Depression: Continue citalopram BPH: Continue flomax (5) DVT prophylaxis: Plan: Heparin sq Admission and Anticipated Discharge Date Admission Date: April 13, 2022 Subjective Patient was seen and examined for follow-up of weakness Lying in bed with no distress Denies any new complaint Review of Systems Review of Systems: All systems reviewed & are unremarkable except as noted in Subjective Physical Exam Physical Exam: General- No acute distress Head- atraumatic Eyes- PERRL, EOMI, ENT- oropharynx clear Neck- supple, no JVD Lungs- clear to auscultation Heart- regular rhythm; no murmur Abdomen- normal bowel sounds, soft, nontender Extremities- no calf tenderness Neuro- alert, oriented x 3; PERRL, EOMI; no facial palsy; no dysarthria Skin- warm & dry Results & Data Results & Data ([facility]) Vital Signs (Past 12 Hours) Vital Signs Temp Pulse Resp BP Pulse Ox 04/20/22 00:37 36.7 C 88 18 120/69 97 04/19/22 15:22 36.8 C 68 16 148/64 H 96 04/19/22 13:10 64 18 100/58 L 94
[2022-04-20] MEDS: SEVELAMER HCL 800 MG TABLET PO SCH ×3 (08:19→17:34)
[2022-04-20] MEDS: CITALOPRAM 40 MG TAB PO SCH (08:20)
[2022-04-20] MEDS: FLUTICASONE/VILANTEROL 200/25MCG 14 PUFFS/INHALER INH SCH (08:20)
[2022-04-20] MEDS: NEPHROCAPS PO SCH (08:20)
[2022-04-20] MEDS: CALCITRIOL 0.25 MCG CAPSULE PO SCH (08:20)
[2022-04-20] MEDS: ASPIRIN 81 MG ECTAB PO SCH (08:20)
[2022-04-20] MEDS: HEPARIN SOD 5,000 UNIT/0.5 ML VIAL SQ SCH ×2 (08:20→21:09)
[2022-04-20] MEDS: CHOLECALCIFEROL 1,000 UNITS 25 MCG TAB PO SCH (08:20)
[2022-04-20] MEDS: INSULIN ASPART PER UNIT SC SCH ×4 (08:21→21:12)
[2022-04-20] MEDS: TAMSULOSIN HCL 0.4 MG CAP PO SCH (21:09)
[2022-04-20] MEDS: FINASTERIDE 5 MG TAB PO SCH (21:11)
[2022-04-20] MEDS: ATORVASTATIN 40 MG TAB PO SCH (21:12)
--- NOTE | 2022-04-20 23:22 | Hospitalist Progress Note ---
Date of Service April 20, 2022 Assessment & Plan (1) Ambulatory dysfunction: (2) Generalized weakness: Plan: Patient's family will like placement for patient Continue PT/OT while inpatient CM working on placement Insurance denies inpatient rehab, will try to do peer to peer review Waiting for call back for the peer to peer review (3) ESRD (end stage renal disease) on dialysis: Plan: Reports Left AV fistula malfunction Currently getting HD via HD catheter HD on MWF Nephro on board Torsemide discontinued per nephro (4) Diabetes mellitus, type 2: Plan: Most recent hab1c 5.9 on 04/13/22 Continue ISS Continue monitor BS H/o Severe s/p AVR H/o C diff. Just completed po vancomycin Depression: Continue citalopram BPH: Continue flomax (5) DVT prophylaxis: Plan: Heparin sq Admission and Anticipated Discharge Date Admission Date: April 13, 2022 Subjective Patient was seen and examined for follow-up of weakness Lying in bed with no distress Called for the peer to peer reviewed. I was able to speak to a staff that get my info Denies any new complaint Review of Systems Review of Systems: All systems reviewed & are unremarkable except as noted in Subjective Physical Exam Physical Exam: General- No acute distress Head- atraumatic Eyes- PERRL, EOMI, ENT- oropharynx clear Neck- supple, no JVD Lungs- clear to auscultation Heart- regular rhythm; no murmur Abdomen- normal bowel sounds, soft, nontender Extremities- no calf tenderness Neuro- alert, oriented x 3; PERRL, EOMI; no facial palsy; no dysarthria Skin- warm & dry Results & Data Results & Data ([facility]) Vital Signs (Past 12 Hours) Vital Signs Temp Pulse Resp BP Pulse Ox 04/20/22 22:49 36.7 C 57 L 16 167/65 H 98 04/20/22 15:16 36.8 C 57 L 16 155/58 H 99
[2022-04-21] MEDS ORDERED: HEPARIN SOD (PORCINE) 1000 UNIT/ML IV ONE (07:13)
[2022-04-21] MEDS ORDERED: SODIUM CHLORIDE 0.9% 1000ML 1,000 ML IV PRN ×2 (07:13→07:24)
[2022-04-21] MEDS ORDERED: EPOETIN ALFA 10,000 UNITS/ML VIAL IV ONE (07:30)
[2022-04-21] MEDS: ASPIRIN 81 MG ECTAB PO SCH (08:30)
[2022-04-21] MEDS: SEVELAMER HCL 800 MG TABLET PO SCH ×2 (08:30→13:42)
[2022-04-21] MEDS: FLUTICASONE/VILANTEROL 200/25MCG 14 PUFFS/INHALER INH SCH (08:30)
[2022-04-21] MEDS: CITALOPRAM 40 MG TAB PO SCH (08:31)
[2022-04-21] MEDS: CHOLECALCIFEROL 1,000 UNITS 25 MCG TAB PO SCH (08:31)
[2022-04-21] MEDS: CALCITRIOL 0.25 MCG CAPSULE PO SCH (08:31)
[2022-04-21] MEDS: NEPHROCAPS PO SCH (08:32)
[2022-04-21] MEDS: INSULIN ASPART PER UNIT SC SCH ×2 (08:33→13:49)
[2022-04-21] MEDS: HEPARIN SOD 5,000 UNIT/0.5 ML VIAL SQ SCH (09:18)
[2022-04-21] MEDS: HEPARIN SOD (PORCINE) 1000 UNIT/ML IV SCH (09:53)
--- NOTE | 2022-04-21 12:26 | Nephrology Progress Note ---
Date of Service April 21, 2022 Assessment & Plan (1) ESRD (end stage renal disease) on dialysis: Plan: His dialysis days are Sunday, Sunday, Sunday, , Access- TDC tunneled , He has a AV fistula still has bruit and thrill and can potentially be salvaged in the near future The patient does not have any overt fluid overload or electrolyte issues today or generally ; BP labile again today and had to cut back on UF target accordingly. 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 Admission and Anticipated Discharge Date Admission Date: April 13, 2022 Subjective no interval events. eating well serafin breakfast; no c/o sob, abd or chest or musc skel pain or edema Review of Systems Review of Systems: All systems reviewed & are unremarkable except as noted in Subjective Physical Exam Constitutional: well developed and + thin; no acute distress Eyes: EOM intact bilaterally ENMT: Ears: no external ear abnormality Nose: no external nose abnormality Mouth: + dry oral mucous membranes Neck: no nuchal rigidity Respiratory: normal respiratory effort Auscultation: + diminished lung sounds Cardiovascular: Rate/Rhythm: regular rate and regular rhythm Extremities: + AV fistula (+t/b); no edema Gastrointestinal (Abdomen): Inspection/Auscultation: normal bowel sounds Percussion/Palpation: abdomen soft; abdomen nontender Musculoskeletal: Extremities: strength 5/5 throughout Skin: no rashes, warm and dry Neurologic: albarran, fluent speech, no tremor Psychiatric: Orientation: oriented to person and oriented to place Insight: + limited insight Judgement: + limited judgement Results & Data ([facility]) Vital Signs (Past 12 Hours) Vital Signs Temp Pulse Pulse Pulse Resp BP BP 04/21/22 12:00 79 89/50 L 04/21/22 11:30 78 83/53 L 04/21/22 11:00 78 65/45 L 04/21/22 10:30 74 87/45 L 04/21/22 10:00 63 88/53 L 04/21/22 09:36 36.8 C 69 04/21/22 07:32 36.4 C L 54 L 17 148/66 H Pulse Ox 04/21/22 12:00 04/21/22 11:30 04/21/22 11:00 04/21/22 10:30 04/21/22 10:00 04/21/22 09:36 04/21/22 07:32 98 Laboratory Results 04/19/22 06:57 04/19/22 06:57
--- NOTE | 2022-04-21 15:40 | Discharge Summary ---
Date of Service April 21, 2022 Discharge Exam General- No acute distress Head- atraumatic Eyes- PERRL, EOMI, ENT- oropharynx clear Neck- supple, no JVD Lungs- clear to auscultation Heart- regular rhythm; no murmur Abdomen- normal bowel sounds, soft, nontender Extremities- no calf tenderness Neuro- alert, oriented x 3; PERRL, EOMI; no facial palsy; no dysarthria Skin- warm & dry Discharge Data Allergies Allergy/AdvReac Type Severity Reaction Status Date / Time No Known Allergies Allergy Verified 04/12/22 22:33 Consultations 04/12/22 23:12 ED Decision to Admit Stat 04/13/22 08:00 Consult Nephrology Routine Hospital Course (1) Ambulatory dysfunction: (2) Generalized weakness: Patient's family will like placement for patient Continue PT/OT while inpatient CM working on placement Insurance denies inpatient rehab, will try to do peer to peer review Waiting for call back for the peer to peer review (3) ESRD (end stage renal disease) on dialysis: Reports Left AV fistula malfunction Currently getting HD via HD catheter HD on [facility] Nephro on board Torsemide discontinued per nephro (4) Diabetes mellitus, type 2: Most recent hab1c 5.9 on 04/13/22 Continue ISS Continue monitor BS H/o Severe s/p AVR H/o C diff. Just completed po vancomycin Depression: Continue citalopram BPH: Continue flomax (5) DVT prophylaxis: Heparin sq Discharge Plan Discharge Items Patient Disposition: Home - Home Health Services Reason For Visit: WEAKNESS Discharge Diagnosis: (1) Ambulatory dysfunction: (2) Generalized weakness: (3) ESRD (end stage renal disease) on dialysis: (4) Diabetes mellitus, type 2: Activity: Resume your previous activity Non-emergency contact: Primary Care Provider and Chopper Operator Call non-emergency contact if: you have any medication questions Follow-up/Referrals: Laron Peña MD [Primary Care Provider] - (Date & Time 04/26/2022 11:20 AM Provider Rell Salazar MD Department Family Medicine [facility] ) Diet: Dialysis Renal Addtl Attending Provider Instructions: Follow up with your primary care provider 04/26/2022 11:20 AM Rell Salazar MD Department Family Medicine [facility] Continue follow up with your nephrology Continue hemodialysis on Sunday, Sunday, Sunday ( next dialysis on 04/24) Continue physical and occupational therapy Fall precaution Torsemide discontinued Pending Studies at Discharge: No Stand-Alone Forms: My [facility], Smoking Cessation Medications and DC Order Prescriptions: Continued atorvastatin 40 mg Tablet 40 mg PO QPM RF: 0 citalopram 40 mg Tablet 40 mg PO QAM RF: 0 tamsulosin 0.4 mg Capsule 0.4 mg PO HS RF: 0 finasteride 5 mg Tablet 5 mg PO HS RF: 0 cholecalciferol (vitamin D3) [Vitamin D3] 1,000 unit (25 mcg) Tablet 1,000 unit PO QAM RF: 0 albuterol sulfate 90 mcg/actuation HFA aerosol inhaler 2 puff inhalation Q6H PRN (Reason: Shortness Of Breath Or Wheezing) RF: 0 aspirin 81 mg Tablet,Delayed Release (Dr/Ec) 81 mg PO QAM RF: 0 calcitriol 0.25 mcg capsule 0.25 mcg PO QAM RF: 0 sevelamer carbonate 800 mg tablet 800 mg PO TIDM RF: 0 Mircera 30 mcg/0.3 mL Syringe 30 mcg IV MONTHLY RF: 0 fluticasone furoate-vilanterol [Breo Ellipta] 200-25 mcg/dose Blister With Device 1 inh INHALATION DAILY RF: 0 Renal Caps 1 mg Capsule 1 cap PO DAILY RF: 0 polyethylene glycol 3350 [Miralax] 17 gram powder in packet 17 g PO DAILY RF: 0 Discontinued torsemide 20 mg tablet 40 mg PO QAM RF: 0 vancomycin 125 mg capsule 125 mg PO Q6H RF: 0 Discharge Orders: Discharge Order (Routine); Ordered 04/21/22 Ordered By: Ramses Sharma Admission Data Admit Date/Time: 04/13/22 00:24 Attending Provider: Ramses Sharma Admit Provider: Russell Pineda Primary Care Provider: Laron Peña Other Providers: Russell Pineda ; Helen Horta ; Pro Ortiz ; Radha Ware ; Leandra Candelaria ; Dickson Espinoza ; [facility] ; Doreen Grey I.
== END 2022-04-21 17:18 | disposition home health service (06) | DRG 947 ==
LOC: ED 21:25 → EDINP 04-13 00:24 → SUATTDRO 04-13 00:24 → 3E 04-13 01:47

== ENCOUNTER 2022-04-28 15:35 | Observation (INO) ==
[2022-04-28] MEDS ORDERED: SODIUM CHLORIDE 0.9% 500 ML IV STA (16:26)
[2022-04-28 16:55] LABS: Basophils # (auto) 0.02 K/uL (0-0.2); Basophils % (auto) 0.2 %; Eosinophils # (auto) 0.23 K/uL (0-0.5); Eosinophils % (auto) 2.1 %; Hematocrit (blood only) 35.4 % (42-52); Immature Granulocytes # (auto) 0.04 K/uL (0.00-0.02); Immature Granulocytes % (auto) 0.4 %; Lymphocytes # (auto) 2.03 K/uL (1.2-3.4); Lymphocytes % (auto) 18.4 %; Mean Corpuscular Hemoglobin 30.7 pg (25-34); Mean Corpuscular Hgb Conc 31.1 g/dL (32-36); Mean Corpuscular Volume 98.9 fL (80-100); Mean Platelet Volume 10.4 fL (7.4-10.4); Monocytes # (auto) 1.62 K/uL (0.11-0.59); Monocytes % (auto) 14.7 %; Neutrophils # (auto) 7.08 K/uL (1.4-6.5); Neutrophils % (auto) 64.2 %; Platelet Count 172 K/uL (130-400); RDW Coefficient of Variation 14.3 % (11.5-14.5); RDW Standard Deviation 51.6 fL (36.4-46.3); Red Blood Count 3.58 M/uL (4.7-6.1); White Blood Count 11.02 K/uL (4.8-10.8)
--- NOTE | 2022-04-28 17:17 | Emergency Department Note ---
Impression & Plan Weakness, Acute dehydration, Diarrhea, Dialysis patient ED Provider Note NAME: FERNANDA FLORES AGE: 77 SEX: M : 1945 ARRIVES VIA: Walk-In INFORMANT: [Patient] ED PROVIDER(S): [Ivan Hubbard MD] CHIEF COMPLAINT: Weakness, diarrhea HISTORY OF PRESENT ILLNESS: The patient is a 77-year-old male who states that he has had diarrhea for a month. He was diagnosed with C. difficile and did take some antibiotics for treatment, he seemed better for a short timeframe but now the diarrhea has returned. He is going to the bathroom 10 times or so sometimes a day. He feels weak and dehydrated. Patient is a dialysis patient and because of how weak he was, only could undergo 1/2 a dialysis treatment today. He denies abdominal pain. He has not had fever. No cough or shortness of breath. The patient states he did have a bowel surgery recently for a bowel obstruction, it seems like since that surgery, he has had this diarrhea. Of note, no bloody or black stool seen REVIEW OF SYSTEMS: See HPI for pertinent positives and negatives. A total of ten systems were reviewed and were otherwise negative. PMHx/PSHx: See Below SOCIAL HISTORY: See Below. PHYSICAL EXAM: GENERAL: Patient is in no acute distress. HEENT: No acute trauma, normocephalic atraumatic, mucous membranes dry, no nasal congestion, no scleral icterus. NECK: No stridor, no adenopathy, no meningismus, trachea is midline. LUNGS: Crackles heard on the left lung, no wheezing, no respiratory distress HEART: 2/6 systolic murmur, regular rate and rhythm. ABDOMEN: Soft, nontender, bowel sounds positive, no peritonitis. Surgical wound healing well EXTREMITIES: No cyanosis or edema, full range of motion of all the joints without pain or difficulty, no signs for acute trauma. NEUROLOGIC: Oriented x 3, no acute motor or sensory deficits, no focal weakness. SKIN: No rash, no jaundice, no diaphoresis. DIFFERENTIAL DIAGNOSIS: C. difficile colitis, diverticulitis, colitis, dehydration, electrolyte imbalance, foodborne or viral illness, anemia, among others EMERGENCY DEPARTMENT COURSE/PROCEDURES: ECG: Indication was weakness. The ECG shows a normal sinus rhythm with a right bundle branch block. The rate is 68. There is no ST elevation. LVH is seen. No PVCs. The QTC is 542. Compared to an ECG from 12 April 2022, I see no significant change Continuous Cardiac Monitoring: An order was placed for continuous cardiac monitoring. The monitor shows a rate of 66 with normal sinus rhythm. MEDICAL DECISION MAKING: There is a mild leukocytosis, this could be consistent with infection and the stress of his situation. Patient is anemic but his hemoglobin is actually higher than baseline, I suspect this is from dehydration. There is a normal platelet count. Potassium was normal. Creatinine was high consistent with his dialysis need. No concerning liver enzyme elevation. Lipase was somewhat high at 346, the patient was not really having significant abdominal pain so for now, this value just needs trended. ECG showed a normal sinus rhythm, no obvious i schemia. Cardiac enzyme testing x1 is slightly elevated. This troponin elevation could be from mismatch, cardiac ischemia or just from the fact that he is on dialysis. Stool bio fire testing is pending. Chest x-ray did not show pneumonia or CHF. Abdominal and pelvis CT did not show any evidence for colitis or diverticulitis. No bowel obstruction. On exam, the patient appeared dehydrated. Patient was given IV saline, 1 L in total was given. The patient presents with persistent diarrhea. He is dehydrated, he is on dialysis on a regular basis and could not complete his dialysis today. He does have a leukocytosis. He is weak. At this point, I do think a hospital stay is warranted. 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 The on-call hospitalist was consulted. Past Med/Surg History Medical History Anxiety and depression AV fistula BPH (benign prostatic hyperplasia) Chronic anemia CKD (chronic kidney disease) stage 5, GFR less than 15 ml/min Diabetes mellitus, type 2 Elevated troponin I level ESRD (end stage renal disease) on dialysis Hyperlipidemia Hypertension Osteoarthritis PAD (peripheral artery disease) Peritoneal dialysis catheter in situ Tobacco abuse Tobacco use Surgical History Cardiac murmur History of cataract surgery RT/LEFT History of cholecystectomy History of colonoscopy History of esophagogastroduodenoscopy (EGD) History of procedure for peripheral vascular disease LEFT LEG (STENT PLACED/REASON FOR TAKING PLAVIX) History of tooth extraction Family History Brother Cancer Social History Smoking Status: Former smoker Tobacco Type: Cigarettes Cigarettes Per Day: 10; Second Hand Exposure: No; Hx Alcohol Use: No Hx Substance Use: No Preferred Language: Guamanian Communication Ability: Effective Streaming Media Specialist Required: No Beliefs That Will Affect Care: None Current Living Situation: Alone Current Living Situation Comment: Daughter lives in apartment above How many Children do You have: 1 Feels Safe at Home: Yes Assistive Devices: Walker Allergies Allergies Allergy/AdvReac Type Severity Reaction Status Date / Time No Known Allergies Allergy Verified 04/12/22 22:33 Home Meds Home Medications Medication Instructions Recorded Confirmed atorvastatin 40 mg tablet 40 mg PO QPM 07/31/19 04/12/22 cholecalciferol (vitamin D3) 25 1,000 unit PO QAM 07/31/19 04/12/22 mcg (1,000 unit) tablet (Vitamin D3) citalopram 40 mg tablet 40 mg PO QAM 07/31/19 04/12/22 finasteride 5 mg tablet 5 mg PO HS 07/31/19 04/12/22 tamsulosin 0.4 mg capsule 0.4 mg PO 07/31/19 04/12/22 albuterol sulfate 90 mcg/actuation 2 puff INHALATION Q6H PRN 12/16/19 04/12/22 aerosol inhaler aspirin 81 mg tablet,delayed 81 mg PO QAM 01/06/20 04/12/22 release calcitriol 0.25 mcg capsule 0.25 mcg PO QAM 01/31/22 04/12/22 sevelamer carbonate 800 mg tablet 800 mg PO TIDM 01/31/22 04/12/22 epoetin beta, methoxy peg 30 30 mcg IV MONTHLY 03/12/22 04/12/22 mcg/0.3 mL injection syringe (Mircera) fluticasone furoate 200 1 inh INHALATION DAILY 03/12/22 04/12/22 mcg-vilanterol 25 mcg/dose inhalation powder (Breo Ellipta) polyethylene glycol 3350 17 gram 17 g PO DAILY 04/12/22 04/12/22 oral powder packet (Miralax) vitamin B complex and vitamin C 1 cap PO DAILY 04/12/22 04/12/22 no.20-folic acid 1 mg capsule (Renal Caps) Results & Data (ED) Vital Signs Vital Signs - 24 hr 04/28/22 15:51 04/28/22 16:26 04/28/22 17:09 Temperature 36.8 C Temperature Source Temporal Artery Scan Pulse Rate 81 67 Pulse Rate [Apical] 66 Respiratory Rate 18 21 21 Blood Pressure 99/58 L Blood Pressure [Right Arm] 166/92 H Blood Pressure Mean 71 Blood Pressure Mean [Right Arm] 116 Pulse Oximetry 99 98 95 Oxygen Delivery Method Room Air Room Air Room Air Sepsis Recent Fever Within 48 Hours No Sepsis New/Unexplained Change in Mental Status No Sepsis Action Taken by Nursing No Action Required 04/28/22 19:00 Temperature Temperature Source Pulse Rate Pulse Rate [Apical] 89 Respiratory Rate 21 Blood Pressure Blood Pressure [Right Arm] 160/90 H Blood Pressure Mean Blood Pressure Mean [Right Arm] 113 Pulse Oximetry 95 Oxygen Delivery Method Room Air Sepsis Recent Fever Within 48 Hours Sepsis New/Unexplained Change in Mental Status Sepsis Action Taken by Care Home Medications Current Medication List: was personally reviewed by me Laboratory Data Attestation: I reviewed the patient's lab results. Result diagrams: 04/28/22 16:38 04/28/22 19:28 Lab Results 04/28/22 04/28/22 04/28/22 Range/Units 16:38 16:38 19:28 WBC 11.02 H (4.8-10.8) K/uL RBC 3.58 L (4.7-6.1) M/uL Hgb 11.0 L (14.0-18.0) g/dL Hct 35.4 L (42-52) % MCV 98.9 (80-100) fL MCH 30.7 (25-34) pg MCHC 31.1 L (32-36) g/dL RDW Std Deviation 51.6 H (36.4-46.3) fL RDW Coeff of Danny 14.3 (11.5-14.5) % Plt Count 172 (130-400) K/uL MPV 10.4 (7.4-10.4) fL Immature Gran % (Auto) 0.4 % Neut % (Auto) 64.2 % Lymph % (Auto) 18.4 % Swift % (Auto) 14.7 % Eos % (Auto) 2.1 % Baso % (Auto) 0.2 % Neut # (Auto) 7.08 H (1.4-6.5) K/uL Lymph # (Auto) 2.03 (1.2-3.4) K/uL Swift # (Auto) 1.62 H (0.11-0.59) K/uL Eos # (Auto) 0.23 (0-0.5) K/uL Baso # (Auto) 0.02 (0-0.2) K/uL Immature Gran # (Auto) 0.04 H (0.00-0.02) K/uL Sodium 135 L (136-145) mmol/L Potassium 3.8 (3.5-5.1) mmol/L Chloride 100 (98-107) mmol/L Carbon Dioxide 25 (21-32) mmol/L Anion Gap 10 (3-11) BUN 16 (6-23) mg/dl Creatinine 3.04 H (0.6-1.4) mg/dl Est Cr Clr Drug Dosing 15.7 ml/min Est GFR ( Amer) 21.5 ml/min Est GFR (Non-Af Amer) 18.6 ml/min BUN/Creatinine Ratio 5.3 L (10-20) Glucose 105 H (70-99(Fasting)) mg/dl Calcium 9.2 (8.5-10.1) mg/dl Phosphorus 3.6 (2.5-4.9) mg/dl Magnesium 1.8 (1.7-2.4) mg/dl Total Bilirubin 0.7 (0.2-1.0) mg/dl AST 26 (13-39) U/L ALT 14 (7-52) U/L Alkaline Phosphatase 73 (34-104) U/L Troponin I High Sens 38.9 H (0-20) pg/ml Total Protein 7.6 (6.0-8.3) gm/dl Albumin 4.0 (3.4-5.0) gm/dl Globulin 3.6 (2.5-4.0) gm/dl Albumin/Globulin Ratio 1.1 (0.9-2) Lipase 346 H (11-82) U/L Administered Medications Discontinued Medications Sodium Chloride (Nss) 500 mls @ 999 mls/hr IV .Q31M STA Stop: 04/28/22 16:56 Last Infusion: 04/28/22 17:14 Dose: 0 mls/hr Documented by: [id number] Admin: 04/28/22 16:43 Dose: 999 mls/hr Documented by: [id number] Sodium Chloride (Nss 1000ml) 500 mls @ 999 mls/hr IV .Q31M ONE Stop: 04/28/22 19:13 Last Admin: 04/28/22 19:09 Dose: 999 mls/hr Documented by: [id number] Imaging Data Radiologist's Impression: Abdomen/Pelvis CT 04/28/22 16:26 CT abd pelvis wo con CLINICAL HISTORY: dialysis, diarrhea TECHNIQUE: Helical axial images of the abdomen and pelvis were obtained. Automated dose lowering techniques and/or adjustment according to patient size were utilized for this exam. This exam was performed without intravenous contrast. CT DOSE: 370.03 mGycm COMPARISON: Comparison is made to CT abdomen pelvis 03/12/2022 FINDINGS: Lower chest: Opacities are seen in the bilateral lung bases. Liver: Unremarkable. No focal lesions are seen. Gallbladder and biliary tree: Patient is status post cholecystectomy. Physiologic Pancreas: The pancreatic duct is prominent measuring approximately 4 mm in diameter. Spleen: Unremarkable. Adrenals: Unremarkable. Kidneys and ureters: The right kidney is atrophic. Cysts are seen bilaterally. Bladder: Limited evaluation due to underdistention. Reproductive organs: Unremarkable. Bowel: Unremarkable. Lymph nodes Retroperitoneal: Unremarkable. Mesenteric: Unremarkable. Pelvic: Unremarkable. Peritoneum: Normal. Vessels: Severe atherosclerotic disease is seen. 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 Abdominal wall: Unremarkable. Bones: Degenerative changes in the visualized spine. IMPRESSION: 1. No acute intra-abdominal abnormality. 2. Bilateral densities in the visualized lower lobes. These may represent atelectasis, pneumonia, and/or aspiration. 3. Atrophic appearance of the kidneys. 4. Additional findings as above. ACT 112: Negative or not required by law. Electronically signed by: Brett Garcia M.D. 04/28/2022 5:32 PM Chest X-Ray 04/28/22 16:26 XR chest 1V portable CLINICAL HISTORY: weakness TECHNIQUE: Single frontal radiograph of the chest was obtained. Comparison: Comparison is made to chest radiograph 04/12/2022 FINDINGS: Dual lumen catheter is seen on the right. Aortic prosthesis is seen. Calcified aortic knob is seen. The lungs are clear. No evidence of pleural effusion or pneumothorax. IMPRESSION: No acute chest disease. ACT 112: Negative or not required by law. Electronically signed by: Brett Garcia M.D. 04/28/2022 5:34 PM Discharge Plan Visit Data Chief Complaint: Diarrhea Stated Complaint: DIARRHEA ED Provider: Ivan Hubbard Discharge Problem: Weakness, Acute dehydration, Diarrhea, Dialysis patient Patient Disposition: Admitted As Inpatient Condition: Fair Forms Stand Alone Forms: My [facility] [employer] Prescriptions Prescriptions: No Action atorvastatin 40 mg Tablet 40 mg PO QPM RF: 0 citalopram 40 mg Tablet 40 mg PO QAM RF: 0 tamsulosin 0.4 mg Capsule 0.4 mg PO HS RF: 0 finasteride 5 mg Tablet 5 mg PO HS RF: 0 cholecalciferol (vitamin D3) [Vitamin D3] 1,000 unit (25 mcg) Tablet 1,000 unit PO QAM RF: 0 albuterol sulfate 90 mcg/actuation HFA aerosol inhaler 2 puff inhalation Q6H PRN (Reason: Shortness Of Breath Or Wheezing) RF: 0 aspirin 81 mg Tablet,Delayed Release (Dr/Ec) 81 mg PO QAM RF: 0 calcitriol 0.25 mcg capsule 0.25 mcg PO QAM RF: 0 sevelamer carbonate 800 mg tablet 800 mg PO TIDM RF: 0 Mircera 30 mcg/0.3 mL Syringe 30 mcg IV MONTHLY RF: 0 fluticasone furoate-vilanterol [Breo Ellipta] 200-25 mcg/dose Blister With Device 1 inh INHALATION DAILY RF: 0 Renal Caps 1 mg Capsule 1 cap PO DAILY RF: 0 polyethylene glycol 3350 [Miralax] 17 gram powder in packet 17 g PO DAILY RF: 0 Referrals Referrals: Laron Peña MD [Primary Care Provider] - Discharge Problem: Diarrhea Qualifiers: Diarrhea type: unspecified type Qualified Code(s): R19.7 - Diarrhea, unspecified
--- NOTE | 2022-04-28 17:33 | CT Scan Report ---
CT abd pelvis wo con CLINICAL HISTORY: dialysis, diarrhea TECHNIQUE: Helical axial images of the abdomen and pelvis were obtained. Automated dose lowering tech niques and/or adjustment according to patient size were utilized for this exam. This exam was perfor med without intravenous contrast. CT DOSE: 370.03 mGycm COMPARISON: Comparison is made to CT abdomen pelvis 03/12/2022 FINDINGS: Lower chest: Opacities are seen in the bilateral lung bases. Liver: Unremarkable. No focal lesions are seen. Gallbladder and biliary tree: Patient is status post cholecystectomy. Physiologic Pancreas: The pancreatic duct is prominent measuring approximately 4 mm in diameter. Spleen: Unremarkable. Adrenals: Unremarkable. Kidneys and ureters: The right kidney is atrophic. Cysts are seen bilaterally. Bladder: Limited evaluation due to underdistention. Reproductive organs: Unremarkable. Bowel: Unremarkable. Lymph nodes Retroperitoneal: Unremarkable. Mesenteric: Unremarkable. Pelvic: Unremarkable. Peritoneum: Normal. Vessels: Severe atherosclerotic disease is seen. Small aneurysmal widening of the bilateral iliac art eries are seen measuring up to 19 mm on the left. Abdominal wall: Unremarkable. Bones: Degenerative changes in the visualized spine. IMPRESSION: 1. No acute intra-abdominal abnormality. 2. Bilateral densities in the visualized lower lobes. These may represent atelectasis, pneumonia, an d/or aspiration. 3. Atrophic appearance of the kidneys. 4. Additional findings as above. ACT 112: Negative or not required by law. Electronically signed by: Brett Garcia M.D. 04/28/2022 5:32 PM
--- NOTE | 2022-04-28 17:36 | XRay Report ---
XR chest 1V portable CLINICAL HISTORY: weakness TECHNIQUE: Single frontal radiograph of the chest was obtained. Comparison: Comparison is made to chest radiograph 04/12/2022 FINDINGS: Dual lumen catheter is seen on the right. Aortic prosthesis is seen. Calcified aortic knob is seen. T he lungs are clear. No evidence of pleural effusion or pneumothorax. IMPRESSION: No acute chest disease. ACT 112: Negative or not required by law. Electronically signed by: Brett Garcia M.D. 04/28/2022 5:34 PM
[2022-04-28 18:37] LABS: Albumin Globulin Ratio 1.1 (0.9-2); BUN Creatinine Ratio 5.3 (10-20); Bilirubin,Total 0.7 mg/dl (0.2-1.0); Calcium 9.2 mg/dl (8.5-10.1); Creatinine Clr Calc Pharmacy 15.7 ml/min; Est GFR (African American) 21.5 ml/min; Est GFR (Non-African American) 18.6 ml/min; Globulin 3.6 gm/dl (2.5-4.0); Magnesium 1.8 mg/dl (1.7-2.4); Phosphorus 3.6 mg/dl (2.5-4.9); Total Protein 7.6 gm/dl (6.0-8.3); Troponin I High Sensitivity 38.9 pg/ml (0-20)
[2022-04-28] MEDS ORDERED: SODIUM CHLORIDE 0.9% 1000ML 500 ML IV ONE (18:43)
--- NOTE | 2022-04-28 20:15 | History & Physical Report ---
Date of Service April 28, 2022 Assessment & Plan (1) Clostridioides difficile diarrhea: Plan: Persistent symptoms Patient nontoxic. chronic diastolic heart failure (EF 55 to 60%, TTE 2021), patient on the dry side hx status post TAVR, CAD/PVD as per records COPD, not in acute exacerbation hypertension, BP on the lower side hyperlipidemia on statin Rx DM2 diet-controlled, well-controlled as of recent hemoglobin A1c of 5.06 April 2022 ESRD on HD chronic anemia, hemoglobin better to baseline likely secondary to hemoconcentration Possible deconditioning ongoing tobacco abuse GMF Dificid course Nephrology consult Re: Dialysis management ISS BG goal 1 10-1 40, carb count coverage Nicotine patch as needed PT OT eval DVT prophylaxis. Heparin subcu Full code Patient daughter requesting updates from providers. Ms. Rice José Miguel, contact #[phone].. Text document was generated using [employer] voice recognition software. It may contain grammatical or spelling errors. Kindly contact undersigned for clarification of any documentation item in question. History of Present Illness Chief Complaint: Persistent diarrhea Primary Care Provider: Laron Peña MD History obtained from patient, family, and records. Medical history is significant for chronic diastolic heart failure (EF 55 to 60%, TTE 2021), status post TAVR, CAD/PVD as per records COPD, hypertension, hyperlipidemia, DM2 diet-controlled, ESRD on HD, BPH, chronic anemia (baseline hemoglobin 8-9 ), ongoing tobacco abuse, recent C. difficile colitis status post vancomycin Rx Recent confinement April 13 to 2021 for ambulatory dysfunction/generalized weakness. Patient found to have C. difficile status post vancomycin Rx. Persistent diarrhea continuing home upon discharge. No abdominal pain. Patient feels weak and dehydrated. Patient denies chest pain, SOB, abdominal pain sy mptoms Patient brought to ER for evaluation. Oral vancomycin given for persistent C. difficile. MEDICAL HISTORY: As above. SURGERIES: He has had a cholecystectomy, but ocular procedures, ex lap, enterolysis, TAVR FAMILY HISTORY: Diabetes. PERSONAL AND SOCIAL HISTORY: Half pack daily. 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 Allergies Allergy/AdvReac Type Severity Reaction Status Date / Time No Known Allergies Allergy Verified 04/12/22 22:33 Home Medications Medication Instructions Recorded Confirmed Type atorvastatin 40 mg tablet 40 mg PO QPM 07/31/19 04/12/22 History cholecalciferol (vitamin D3) 25 1,000 unit PO QAM 07/31/19 04/12/22 History mcg (1,000 unit) tablet (Vitamin D3) citalopram 40 mg tablet 40 mg PO QAM 07/31/19 04/12/22 History finasteride 5 mg tablet 5 mg PO HS 07/31/19 04/12/22 History tamsulosin 0.4 mg capsule 0.4 mg PO HS 07/31/19 04/12/22 History albuterol sulfate 90 mcg/actuation 2 puff INHALATION Q6H PRN 12/16/19 04/12/22 History aerosol inhaler aspirin 81 mg tablet,delayed 81 mg PO QAM 01/06/20 04/12/22 History release calcitriol 0.25 mcg capsule 0.25 mcg PO QAM 01/31/22 04/12/22 History sevelamer carbonate 800 mg tablet 800 mg PO TIDM 01/31/22 04/12/22 History epoetin beta, methoxy peg 30 30 mcg IV MONTHLY 03/12/22 04/12/22 History mcg/0.3 mL injection syringe (Mircera) fluticasone furoate 200 1 inh INHALATION DAILY 03/12/22 04/12/22 History mcg-vilanterol 25 mcg/dose inhalation powder (Breo Ellipta) polyethylene glycol 3350 17 gram 17 g PO DAILY 04/12/22 04/12/22 History oral powder packet (Miralax) vitamin B complex and vitamin C 1 cap PO DAILY 04/12/22 04/12/22 History no.20-folic acid 1 mg capsule (Renal Caps) Past Med/Surg History Medical History Anxiety and depression AV fistula BPH (benign prostatic hyperplasia) Chronic anemia CKD (chronic kidney disease) stage 5, GFR less than 15 ml/min Diabetes mellitus, type 2 Elevated troponin I level ESRD (end stage renal disease) on dialysis Hyperlipidemia Hypertension Osteoarthritis PAD (peripheral artery disease) Peritoneal dialysis catheter in situ Tobacco abuse Tobacco use Surgical History Cardiac murmur History of cataract surgery RT/LEFT History of cholecystectomy History of colonoscopy History of esophagogastroduodenoscopy (EGD) History of procedure for peripheral vascular disease LEFT LEG (STENT PLACED/REASON FOR TAKING PLAVIX) History of tooth extraction Family History Brother Cancer Social History Smoking Status: Current every day smoker Tobacco Type: Cigarettes Cigarettes Per Day: 10; Second Hand Exposure: No; Do You Dip or Chew Tobacco: No; Tobacco Cessation Education Requested by Patient: No Hx Alcohol Use: Yes (very seldom) Alcohol type: beer Hx Substance Use: No Preferred Language: Niuean Communication Ability: Effective Cert Pharmacy Tech Required: No Beliefs That Will Affect Care: None Current Living Situation: Alone Current Living Situation Comment: Daughter lives in apartment above How many Children do You have: 1 Other Information That Helps Us Care for You: No Feels Safe at Home: Yes Safety Concerns: Feels Safe At This Time Assistive Devices: Walker Review of Systems Review of Systems: As per HPI, all other systems reviewed and negative Physical Exam Physical Exam: GENERAL: Comfortable, pleasant, no respiratory distress SKIN: Pallor,, warm HEENT: Pale palpebral conjunctivae, no ptosis, dry buccal mucosa NECK : Supple, no tenderness CHEST : Decreased breath sounds, occasional expiratory wheezes, no tenderness HEART : RRR, no obvious murmurs ABDOMEN: Some distention, nontender EXTREMITIES : No LE swelling/tenderness, no other conspicuous deformities noted NEUROLOGIC : Coherent, no facial asymmetry, no other gross focality Results & Data [facility] Vital Signs (Past 12 Hours) Vital Signs Temp Pulse Pulse Resp BP BP Pulse Ox 04/28/22 19:00 89 21 160/90 H 95 04/28/22 17:09 66 21 166/92 H 95 04/28/22 16:26 67 21 98 04/28/22 15:51 36.8 C 81 18 99/58 L 99 Laboratory Results Laboratory Results WBC 11.02 K/uL (4.8-10.8) H 04/28/22 16:38 RBC 3.58 M/uL (4.7-6.1) L 04/28/22 16:38 Hgb 11.0 g/dL (14.0-18.0) L 04/28/22 16:38 Hct 35.4 % (42-52) L 04/28/22 16:38 MCV 98.9 fL (80-100) 04/28/22 16:38 MCH 30.7 pg (25-34) 04/28/22 16:38 MCHC 31.1 g/dL (32-36) L 04/28/22 16:38 RDW Std Deviation 51.6 fL (36.4-46.3) H 04/28/22 16:38 RDW Coeff of Danny 14.3 % (11.5-14.5) 04/28/22 16:38 Plt Count 172 K/uL (130-400) 04/28/22 16:38 MPV 10.4 fL (7.4-10.4) 04/28/22 16:38 Immature Gran % (Auto) 0.4 % 04/28/22 16:38 Neut % (Auto) 64.2 % 04/28/22 16:38 Lymph % (Auto) 18.4 % 04/28/22 16:38 [place] % (Auto) 14.7 % 04/28/22 16:38 Eos % (Auto) 2.1 % 04/28/22 16:38 Baso % (Auto) 0.2 % 04/28/22 16:38 Neut # (Auto) 7.08 K/uL (1.4-6.5) H 04/28/22 16:38 Lymph # (Auto) 2.03 K/uL (1.2-3.4) 04/28/22 16:38 [place] # (Auto) 1.62 K/uL (0.11-0.59) H 04/28/22 16:38 Eos # (Auto) 0.23 K/uL (0-0.5) 04/28/22 16:38 Baso # (Auto) 0.02 K/uL (0-0.2) 04/28/22 16:38 Immature Gran # (Auto) 0.04 K/uL (0.00-0.02) H 04/28/22 16:38 Sodium 135 mmol/L (136-145) L 04/28/22 16:38 Potassium mmol/L (3.5-5.1) 04/28/22 16:38 Chloride 100 mmol/L (98-107) 04/28/22 16:38 Carbon Dioxide 25 mmol/L (21-32) 04/28/22 16:38 Anion Gap 10 (3-11) 04/28/22 16:38 BUN 16 mg/dl (6-23) 04/28/22 16:38 Creatinine 3.04 mg/dl (0.6-1.4) H 04/28/22 16:38 Est Cr Clr Drug Dosing 15.7 ml/min 04/28/22 16:38 Est GFR ( Amer) 21.5 ml/min 04/28/22 16:38 Est GFR (Non-Af Amer) 18.6 ml/min 04/28/22 16:38 BUN/Creatinine Ratio 5.3 (10-20) L 04/28/22 16:38 Glucose 105 mg/dl (70-99(Fasting)) H 04/28/22 16:38 Calcium 9.2 mg/dl (8.5-10.1) 04/28/22 16:38 Phosphorus 3.6 mg/dl (2.5-4.9) 04/28/22 16:38 Magnesium 1.8 mg/dl (1.7-2.4) 04/28/22 16:38 Total Bilirubin 0.7 mg/dl (0.2-1.0) 04/28/22 16:38 AST U/L (13-39) 04/28/22 16:38 ALT 14 U/L (7-52) 04/28/22 16:38 Alkaline Phosphatase 73 U/L (34-104) 04/28/22 16:38 Troponin I High Sens 38.9 pg/ml (0-20) H 04/28/22 16:38 Total Protein 7.6 gm/dl (6.0-8.3) 04/28/22 16:38 Albumin 4.0 gm/dl (3.4-5.0) 04/28/22 16:38 Globulin 3.6 gm/dl (2.5-4.0) 04/28/22 16:38 Albumin/Globulin Ratio 1.1 (0.9-2) 04/28/22 16:38 Lipase 346 U/L (11-82) H 04/28/22 16:38 Impressions Abdomen/Pelvis CT 04/28/22 16:26 CT abd pelvis wo con CLINICAL HISTORY: dialysis, diarrhea TECHNIQUE: Helical axial images of the abdomen and pelvis were obtained. Automated dose lowering techniques and/or adjustment according to patient size were utilized for this exam. This exam was performed without intravenous contrast. CT DOSE: 370.03 mGycm COMPARISON: Comparison is made to CT abdomen pelvis 03/12/2022 FINDINGS: Lower chest: Opacities are seen in the bilateral lung bases. Liver: Unremarkable. No focal lesions are seen. Gallbladder and biliary tree: Patient is status post cholecystectomy. Physiologic Pancreas: The pancreatic duct is prominent measuring approximately 4 mm in diameter. Spleen: Unremarkable. Adrenals: Unremarkable. Kidneys and ureters: The right kidney is atrophic. Cysts are seen bilaterally. Bladder: Limited evaluation due to underdistention. Reproductive organs: Unremarkable. Bowel: Unremarkable. Lymph nodes Retroperitoneal: Unremarkable. Mesenteric: Unremarkable. Pelvic: Unremarkable. Peritoneum: Normal. Vessels: Severe atherosclerotic disease is seen. 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 Abdominal wall: Unremarkable. Bones: Degenerative changes in the visualized spine. IMPRESSION: 1. No acute intra-abdominal abnormality. 2. Bilateral densities in the visualized lower lobes. These may represent atelectasis, pneumonia, and/or aspiration. 3. Atrophic appearance of the kidneys. 4. Additional findings as above. ACT 112: Negative or not required by law. Electronically signed by: Brett Garcia M.D. 04/28/2022 5:32 PM Chest X-Ray 04/28/22 16:26 XR chest 1V portable CLINICAL HISTORY: weakness TECHNIQUE: Single frontal radiograph of the chest was obtained. Comparison: Comparison is made to chest radiograph 04/12/2022 FINDINGS: Dual lumen catheter is seen on the right. Aortic prosthesis is seen. Calcified aortic knob is seen. The lungs are clear. No evidence of pleural effusion or pneumothorax. IMPRESSION: No acute chest disease. ACT 112: Negative or not required by law. Electronically signed by: Brett Garcia M.D. 04/28/2022 5:34 PM Diagnostic Findings EKG as per my interpretation : Rate 70, NSR, LAD, LAFB, RBBB, LVH, no ischemia
[2022-04-28 20:35] LABS: Potassium 3.8 mmol/L (3.5-5.1)
[2022-04-28 20:59] LABS: Adenovirus F 40/41 PCR Not Detected (NotDetected); Astrovirus PCR Not Detected (NotDetected); Campylobacter PCR Not Detected (NotDetected); Cryptosporidium PCR Not Detected (NotDetected); Cyclospora cayetanensis PCR Not Detected (NotDetected); Entamoeba histolytica PCR Not Detected (NotDetected); Enteroaggregative E.coli(EAEC) Not Detected (NotDetected); Enteropathogenic E.coli (EPEC) Not Detected (NotDetected); Enterotoxigenic E.coli (ETEC) Not Detected (NotDetected); Giardia lamblia PCR Not Detected (NotDetected); Norovirus GI/GII PCR Not Detected (NotDetected); Plesiomonas shigelloides PCR Not Detected (NotDetected); Rotavirus A PCR Not Detected (NotDetected); Salmonella PCR Not Detected (NotDetected); Sapovirus PCR Not Detected (NotDetected); Shiga-like Toxin E.coli (STEC) Not Detected (NotDetected); Shigella/Enteroinvasive E.coli Not Detected (NotDetected); Vibrio cholerae PCR Not Detected (NotDetected); Vibrio species PCR Not Detected (NotDetected); Yersinia enterocolitica PCR Not Detected (NotDetected)
[2022-04-28 22:08] LABS: Cdiff Antigen Positive
[2022-04-28 22:15] LABS: Cdiff Toxin A+B Positive Cdiff Toxin (Negative)
[2022-04-28] MEDS ORDERED: VANCOMYCIN HCL 125 MG/2.5ML SOLN PO STA (22:16)
--- NOTE | 2022-04-28 22:30 | Emergency Department Note ---
ED Visit Note The patient's stool bio fire testing returned positive for C. difficile. This certainly would fit with his diarrhea. A dose of oral vancomycin was ordered. . : Diarrhea Qualifiers: Diarrhea type: unspecified type Qualified Code(s): R19.7 - Diarrhea, unspecified
[2022-04-28] MEDS ORDERED: RASPBERRY SYRUP 5 ML UDP PO ONE (22:45)
[2022-04-29] MEDS ORDERED: GLUCOSE 40% GEL 15 GM TUBE PO PRN (00:33)
[2022-04-29] MEDS ORDERED: CARBOHYDRATES FOR HYPOGLYCEMIA PO PRN (00:33)
[2022-04-29] MEDS ORDERED: GLUCAGON FOR INJ 1 MG VIAL SQ PRN (00:33)
[2022-04-29] MEDS: INSULIN ASPART PER UNIT SC SCH ×5 (00:33→21:00)
[2022-04-29] MEDS ORDERED: DEXTROSE 50% 50 ML SYRINGE IV PRN (00:33)
[2022-04-29] MEDS ORDERED: GLUCOSE 10 TABS/TUBE PO PRN (00:33)
[2022-04-29] MEDS ORDERED: ACETAMINOPHEN 325 MG TAB PO PRN (00:33)
[2022-04-29] MEDS ORDERED: PROMETHAZINE HCL 6.25 MG in SODIUM CHLORIDE 0.9% 50 ML IV PRN (00:33)
[2022-04-29] MEDS: FINASTERIDE 5 MG TAB PO SCH ×2 (01:39→21:00)
[2022-04-29] MEDS: HEPARIN SOD 5,000 UNIT/0.5 ML VIAL SQ SCH ×4 (01:40→21:03)
[2022-04-29] MEDS: FIDAXOMICIN 200 MG TAB PO SCH ×2 (05:43→21:00)
[2022-04-29 05:53] LABS: Basophils # (auto) 0.03 K/uL (0-0.2); Basophils % (auto) 0.4 %; Eosinophils # (auto) 0.37 K/uL (0-0.5); Eosinophils % (auto) 4.8 %; Hematocrit (blood only) 30.7 % (42-52); Hemoglobin 9.8 g/dL (14.0-18.0); Immature Granulocytes # (auto) 0.04 K/uL (0.00-0.02); Immature Granulocytes % (auto) 0.5 %; Lymphocytes # (auto) 2.31 K/uL (1.2-3.4); Lymphocytes % (auto) 30.2 %; Mean Corpuscular Hemoglobin 31.4 pg (25-34); Mean Corpuscular Hgb Conc 31.9 g/dL (32-36); Mean Corpuscular Volume 98.4 fL (80-100); Mean Platelet Volume 10.2 fL (7.4-10.4); Monocytes # (auto) 0.81 K/uL (0.11-0.59); Monocytes % (auto) 10.6 %; Neutrophils # (auto) 4.08 K/uL (1.4-6.5); Neutrophils % (auto) 53.5 %; Platelet Count 143 K/uL (130-400); RDW Coefficient of Variation 14.3 % (11.5-14.5); RDW Standard Deviation 51.7 fL (36.4-46.3); Red Blood Count 3.12 M/uL (4.7-6.1); White Blood Count 7.64 K/uL (4.8-10.8)
[2022-04-29 06:11] LABS: Potassium 3.8 mmol/L (3.5-5.1)
[2022-04-29 06:12] LABS: BUN Creatinine Ratio 5.4 (10-20); Calcium 8.5 mg/dl (8.5-10.1); Creatinine Clr Calc Pharmacy 12.2 ml/min; Est GFR (African American) 15.9 ml/min; Est GFR (Non-African American) 13.7 ml/min
[2022-04-29] MEDS: NEPHROCAPS PO SCH (09:18)
[2022-04-29] MEDS: CITALOPRAM 40 MG TAB PO SCH (09:18)
[2022-04-29] MEDS: SEVELAMER HCL 800 MG TABLET PO SCH ×3 (09:18→16:40)
[2022-04-29] MEDS: ASPIRIN 81 MG ECTAB PO SCH (09:18)
[2022-04-29] MEDS: CALCITRIOL 0.25 MCG CAPSULE PO SCH (09:18)
[2022-04-29] MEDS: CHOLECALCIFEROL 1,000 UNITS 25 MCG TAB PO SCH (09:18)
[2022-04-29] MEDS: FLUTICASONE/VILANTEROL 200/25MCG 14 PUFFS/INHALER INH SCH (09:18)
--- NOTE | 2022-04-29 14:54 | Hospitalist Progress Note ---
Date of Service April 29, 2022 Assessment & Plan (1) Clostridioides difficile diarrhea: Plan: Persistent symptoms Patient nontoxic. Has been in started on Dificid Still continues to have diarrhea Will try Imodium to control diarrhea Denies any abdominal pain, distention, nausea and or vomiting PT/OT Eval ESRD on HD chronic anemia, hemoglobin better to baseline likely secondary to hemoconcentration Appreciate nephrology input and recommendation Has had dialysis yesterday and will need dialysis on Sunday Chronic diastolic heart failure (EF 55 to 60%, TTE 2021), patient on the dry side hx status post TAVR, CAD/PVD as per records Troponin is mildly elevated likely secondary to end-stage renal disease Doubt any ACS COPD, not in acute exacerbation Hypertension, BP on the lower side Hyperlipidemia on statin Rx DM2 diet-controlled, well-controlled as of recent hemoglobin A1c of 5.06 April 2022 ISS BG goal 1 10-1 40, carb count coverage Ongoing tobacco abuse Nicotine patch as needed DVT prophylaxis. Heparin subcu Full code Patient daughter requesting updates from providers. Peggy Krystal José Miguel, contact #[phone].. Admission and Anticipated Discharge Date Admission Date: April 28, 2022 Subjective 04/29/2022 The patient was seen and examined in medical floor He complains to have ongoing diarrhea without any abdominal pain, nausea and or vomiting No fever and or chills Review of Systems Review of Systems: All systems reviewed and are unremarkable except as noted below Gastrointestinal: Ongoing diarrhea Physical Exam Physical Exam: Lying in bed comfortably Constitutional: well developed, well nourished and + ill appearing; no acute distress Eyes: PERRL, conjunctivae normal, anicteric sclerae ENMT: external ear and nose normal, oropharynx normal Neck: trachea midline, no thyromegaly Respiratory: no respiratory distress Auscultation: lungs clear to auscultation bilaterally Cardiovascular: Rate/Rhythm: regular rate and regular rhythm; not tachycardic Heart Sounds: normal S1 and normal S2; no murmur Extremities: no edema Gastrointestinal (Abdomen): Inspection/Auscultation: normal bowel sounds; abdomen not distended Percussion/Palpation: abdomen soft; abdomen nontender Musculoskeletal: No acute arthritis in any joint Neurologic: Alert, awake and oriented x3 Results & Data Results & Data ([facility]) Vital Signs (Past 12 Hours) Vital Signs Temp Pulse Resp BP Pulse Ox 04/29/22 14:09 36.8 C 60 18 144/57 H 100 04/29/22 08:05 36.6 C 60 16 150/68 H 99 Laboratory Results Short CBC 04/28/22 04/29/22 Range/Units 16:38 05:41 WBC 11.02 H 7.64 (4.8-10.8) K/uL Hgb 11.0 L 9.8 L (14.0-18.0) g/dL Hct 35.4 L 30.7 L (42-52) % Plt Count 172 143 (130-400) K/uL BMP 04/28/22 04/28/22 04/29/22 16:38 19:28 05:41 Sodium 135 L 134 L Potassium 3.8 3.8 Chloride 100 104 Carbon Dioxide 25 22 BUN 16 21 Creatinine 3.04 H 3.91 H D Glucose 105 H 88 Calcium 9.2 8.5 Liver Function 04/28/22 04/28/22 Range/Units 16:38 19:28 Total Bilirubin 0.7 (0.2-1.0) mg/dl AST 26 (13-39) U/L ALT 14 (7-52) U/L Alkaline Phosphatase 73 (34-104) U/L Albumin 4.0 (3.4-5.0) gm/dl Medications Administered Current Inpatient Medications Acetaminophen (Acetaminophen 325 Mg Tab) 650 mg PO Q4H PRN PRN Reason: pain/fever Stop: 05/29/22 00:32 Aspirin (Aspirin 81 Mg Ectab) 81 mg PO [facility] Stop: 05/29/22 08:59 Last Admin: 04/29/22 09:18 Dose: 81 mg Documented by: Atorvastatin Calcium (Atorvastatin 40 Mg Tab) 40 mg PO QPM [facility] Stop: 05/29/22 20:59 Calcitriol (Calcitriol 0.25 Mcg Capsule) [facility]cg [facility] [place] Stop: 05/29/22 08:59 Last Admin: 04/29/22 09:18 Dose: 0.25 mcg Documented by: Citalopram Hydrobromide (Citalopram 40 Mg Tab) 40 [facility] [place] Stop: 05/29/22 08:59 Last Admin: 04/29/22 09:18 Dose: 40 mg Documented by: Dextrose (Dextrose 50% 50 Ml Syringe) 25 - 50 ml IV UD PRN; Protocol PRN Reason: Hypoglycemia Protocol Stop: 05/29/22 00:32 Fidaxomicin (Fidaxomicin 200 Mg Tab) 200 mg PO BID [facility] Stop: 05/09/22 03:59 Last Admin: 04/29/22 05:43 Dose: 200 mg Documented by: Finasteride (Finasteride 5 Mg Tab) 5 mg PO HS [facility] Stop: 05/29/22 00:32 Last Admin: 04/29/22 01:39 Dose: 5 mg Documented by: Fluticasone/Vilanterol (Fluticasone/Vilanterol 200/25mcg 14 Puffs/Inhaler) 1 puffs INH DAILY [facility] Stop: 05/29/22 08:59 Last Admin: 04/29/22 09:18 Dose: 1 puffs Documented by: Glucagon (Glucagon For Inj 1 Mg Vial) 1 mg SQ UD PRN; Protocol PRN Reason: Hypoglycemia Protocol Stop: 05/29/22 00:32 Glucose (Glucose 10 Tabs/Tube) 4 - 8 tabs PO UD PRN; Protocol PRN Reason: Hypoglycemia Protocol Stop: 05/29/22 00:32 Glucose (Glucose 40% Gel 15 Gm Tube) 15 - 30 gm PO UD PRN; Protocol PRN Reason: Hypoglycemia Protocol Stop: 05/29/22 00:32 Heparin Sodium (Porcine) (Heparin Sod 5,000 Unit/0.5 Ml Vial) 5,000 units SQ Q8 [facility] Stop: 05/29/22 00:32 Last Admin: 04/29/22 13:14 Dose: 5,000 units Documented by: Promethazine HCl 6.25 mg/ (Sodium Chloride) 50.25 mls @ 201 mls/hr IV Q6H PRN PRN Reason: Nausea And Vomiting Stop: 05/29/22 00:32 Insulin Aspart (Insulin Aspart Per Unit) 0 units SC ACHS [facility] Stop: 05/29/22 00:32 Last Admin: 04/29/22 12:52 Dose: 3 units Documented by: Miscellaneous (Carbohydrates For Hypoglycemia ) 15 - 30 gm PO UD PRN PRN Reason: Hypoglycemia Protocol Stop: 05/29/22 00:32 Sevelamer HCl (Sevelamer Hcl 800 Mg Tablet) 800 mg PO TIDM [facility] Stop: 05/29/22 07:59 Last Admin: 04/29/22 12:52 Dose: 800 mg Documented by: Tamsulosin HCl (Tamsulosin Hcl 0.4 Mg Cap) 0.4 mg PO HS [facility] Stop: 05/29/22 20:59 Vitamin B Complex/Folic Acid (Nephrocaps) 1 cap PO DAILY [facility] Stop: 05/29/22 08:59 Last Admin: 04/29/22 09:18 Dose: 1 cap Documented by: Vitamin D (Cholecalciferol 1,000 Units 25 Mcg Tab) 1,000 units PO QAM [facility] Stop: 05/29/22 08:59 Last Admin: 04/29/22 09:18 Dose: 1,000 units Documented by:
--- NOTE | 2022-04-29 16:38 | Nephrology Consultation ---
Date of Consultation April 29, 2022 Assessment & Plan (1) ESRD (end stage renal disease) on dialysis: Patient is on HD MWF. he had outpt HD on Sunday. Electrolytes are stable and no volume overload. No need for HD today. -Will paln HD Sunday -Daily BMP (2) Clostridioides difficile diarrhea: Patient is on vanco. Will avoid large UF on dialysis History of Present Illness Reason for Consultation: ESRD Requesting Physician: Sue Crabtree MD Attending Physician: Sue Crabtree MD History of Present Illness This is 77yoM with ESRD on HD MWF who was admitted with worsening C.diff diarrhoea. Other PMH include: chronic diastolic heart failure (EF 55 to 60%, TTE 2021), status post TAVR, CAD/PVD as per records COPD, hypertension, hyperlipidemia, DM2 diet-controlled, BPH, and chronic anemia. Recent confinement April 13 to 2021 for ambulatory dysfunction/generalized weakness. Patient found to have C. difficile status post vancomycin Rx. He had his outpt HD on Sunday but treatment interrupted multiple times to go to the toilet. also AVF may have infiltrated due to frequent bathroom trips. he also has a CVC. No SOB. Still diarrhoea today Allergies Allergy/AdvReac Type Severity Reaction Status Date / Time No Known Allergies Allergy Verified 04/12/22 22:33 Home Medications Medication Instructions Recorded Confirmed Type atorvastatin 40 mg tablet 40 mg PO QPM 07/31/19 04/12/22 History cholecalciferol (vitamin D3) 25 1,000 unit PO QAM 07/31/19 04/12/22 History mcg (1,000 unit) tablet (Vitamin D3) citalopram 40 mg tablet 40 mg PO QAM 07/31/19 04/12/22 History finasteride 5 mg tablet 5 mg PO HS 07/31/19 04/12/22 History tamsulosin 0.4 mg capsule 0.4 mg PO HS 07/31/19 04/12/22 History albuterol sulfate 90 mcg/actuation 2 puff INHALATION Q6H PRN 12/16/19 04/12/22 History aerosol inhaler aspirin 81 mg tablet,delayed 81 mg PO QAM 01/06/20 04/12/22 History release calcitriol 0.25 mcg capsule 0.25 mcg PO QAM 01/31/22 04/12/22 History sevelamer carbonate 800 mg tablet 800 mg PO TIDM 01/31/22 04/12/22 History epoetin beta, methoxy peg 30 30 mcg IV MONTHLY 03/12/22 04/12/22 History mcg/0.3 mL injection syringe (Mircera) fluticasone furoate 200 1 inh INHALATION DAILY 03/12/22 04/12/22 History mcg-vilanterol 25 mcg/dose inhalation powder (Breo Ellipta) polyethylene glycol 3350 17 gram 17 g PO DAILY 04/12/22 04/12/22 History oral powder packet (Miralax) vitamin B complex and vitamin C 1 cap PO DAILY 04/12/22 04/12/22 History no.20-folic acid 1 mg capsule (Renal Caps) Patient History Medical History Anxiety and depression AV fistula BPH (benign prostatic hyperplasia) Chronic anemia CKD (chronic kidney disease) stage 5, GFR less than 15 ml/min Diabetes mellitus, type 2 Elevated troponin I level ESRD (end stage renal disease) on dialysis Hyperlipidemia Hypertension Osteoarthritis PAD (peripheral artery disease) Peritoneal dialysis catheter in situ Tobacco abuse Tobacco use Surgical History Cardiac murmur History of cataract surgery RT/LEFT History of cholecystectomy History of colonoscopy History of esophagogastroduodenoscopy (EGD) History of procedure for peripheral vascular disease LEFT LEG (STENT PLACED/REASON FOR TAKING PLAVIX) History of tooth extraction Family History Brother Cancer Social History Smoking Status: Current every day smoker Tobacco Type: Cigarettes Cigarettes Per Day: 10; Second Hand Exposure: No; Do You Dip or Chew Tobacco: No; Tobacco Cessation Education Requested by Patient: No Hx Alcohol Use: Yes (very seldom) Alcohol type: beer Hx Substance Use: No Preferred Language: Chinese Communication Ability: Effective Bible Worker Required: No Beliefs That Will Affect Care: None Current Living Situation: Alone Current Living Situation Comment: Daughter lives in apartment above How many Children do You have: 1 Other Information That Helps Us Care for You: No Feels Safe at Home: Yes Safety Concerns: Feels Safe At This Time Assistive Devices: Walker Review of Systems Review of Systems: All other systems were reviewed and negative except as n oted in HPI Physical Exam Physical Exam: General exam: Appears comfortable, no acute distress HEENT: Pupils are equal and reactive to light Neck: No JVD, neck is supple trachea is midline Respiratory system: Clear breath sounds bilaterally. Gastrointestinal: Abdomen is soft, non distended, non tender, bowel sounds are present CVS: Regular rate and rhythm. No murmurs, rubs or gallops Musculoskeletal: No joint or muscle tenderness Extremities: Non tender, no edema, peripheral pulses are present Neuro: Oriented, no tremors, no focal neurological deficits Skin: No rashes Results & Data ([facility]) Vital Signs (Past 12 Hours) Vital Signs Temp Pulse Resp BP Pulse Ox 04/29/22 14:09 36.8 C 60 18 144/57 H 100 04/29/22 08:05 36.6 C 60 16 150/68 H 99 Laboratory Results 04/29/22 05:41 04/28/22 04/28/22 04/29/22 16:38 16:38 05:41 WBC 11.02 H 7.64 RBC 3.58 L 3.12 L MCV 98.9 98.4 MCH 30.7 31.4 MCHC 31.1 L 31.9 L RDW Std Deviation 51.6 H 51.7 H RDW Coeff of Danny 14.3 14.3 Plt Count 172 143 MPV 10.4 10.2 Phosphorus 3.6 Albumin 4.0
[2022-04-29] MEDS: LOPERAMIDE HCL 2 MG CAP PO PRN (16:40)
[2022-04-29] MEDS ORDERED: TAMSULOSIN HCL 0.4 MG CAP PO SCH (21:00)
[2022-04-29] MEDS ORDERED: ATORVASTATIN 40 MG TAB PO SCH (21:00)
[2022-04-30] MEDS: HEPARIN SOD 5,000 UNIT/0.5 ML VIAL SQ SCH ×2 (06:13→12:34)
[2022-04-30] MEDS: FLUTICASONE/VILANTEROL 200/25MCG 14 PUFFS/INHALER INH SCH (07:39)
[2022-04-30] MEDS: FIDAXOMICIN 200 MG TAB PO SCH (07:40)
[2022-04-30] MEDS: SEVELAMER HCL 800 MG TABLET PO SCH ×2 (07:40→12:32)
[2022-04-30] MEDS: CITALOPRAM 40 MG TAB PO SCH (07:40)
[2022-04-30] MEDS: LOPERAMIDE HCL 2 MG CAP PO PRN (07:40)
[2022-04-30] MEDS: CALCITRIOL 0.25 MCG CAPSULE PO SCH (07:40)
[2022-04-30] MEDS: CHOLECALCIFEROL 1,000 UNITS 25 MCG TAB PO SCH (07:40)
[2022-04-30] MEDS: ASPIRIN 81 MG ECTAB PO SCH (07:41)
[2022-04-30] MEDS: NEPHROCAPS PO SCH (07:41)
[2022-04-30] MEDS: INSULIN ASPART PER UNIT SC SCH ×2 (08:52→12:33)
--- NOTE | 2022-04-30 12:28 | Hospitalist Progress Note ---
Date of Service April 30, 2022 Assessment & Plan (1) Clostridioides difficile diarrhea: Plan: Persistent symptoms Patient nontoxic. Has been in started on Dificid Still continues to have diarrhea Will try Imodium to control diarrhea Denies any abdominal pain, distention, nausea and or vomiting PT/OT Eval-has been ambulating in the hallway without any difficulties and symptoms Diarrhea is controlled without any abdominal symptoms He will be discharged home this afternoon on Dificid to finish the course of for 10 days ESRD on HD chronic anemia, hemoglobin better to baseline likely secondary to hemoconcentration Appreciate nephrology input and recommendation Has had dialysis yesterday and will need dialysis on Sunday Chronic diastolic heart failure (EF 55 to 60%, TTE 2021), patient on the dry side hx status post TAVR, CAD/PVD as per records Troponin is mildly elevated likely secondary to end-stage renal disease Doubt any ACS No acute shortness of breath COPD, not in acute exacerbation Hypertension, BP on the lower side Hyperlipidemia on statin Rx DM2 diet-controlled, well-controlled as of recent hemoglobin A1c of 5.06 April 2022 ISS BG goal 1 10-1 40, carb count coverage Ongoing tobacco abuse Nicotine patch as needed DVT prophylaxis. Heparin subcu Full code Patient daughter requesting updates from providers. Peggy Krystal Valdez, contact #[phone]..-Discussed with the daughter Admission and Anticipated Discharge Date Admission Date: April 28, 2022 Subjective 04/29/2022 The patient was seen and examined in medical floor He complains to have ongoing diarrhea without any abdominal pain, nausea and or vomiting No fever and or chills 04/30/2022 The patient was seen and examined in medical floor His diarrhea is controlled and has had only 1 episode since this morning Denies any abdominal pain, distention, nausea and or vomiting No fever and or chills Will be discharged home this afternoon Review of Systems Review of Systems: All systems reviewed and are unremarkable except as noted below Gastrointestinal: No abdominal pain, nausea and or vomiting Physical Exam Constitutional: well developed, well nourished and + ill appearing; no acute distress Eyes: PERRL, conjunctivae normal, anicteric sclerae ENMT: external ear and nose normal, oropharynx normal Neck: trachea midline, no thyromegaly Respiratory: no respiratory distress Auscultation: lungs clear to auscultation bilaterally Cardiovascular: Rate/Rhythm: regular rate and regular rhythm; not tachycardic Heart Sounds: normal S1 and normal S2; no murmur Extremities: no edema Gastrointestinal (Abdomen): Inspection/Auscultation: normal bowel sounds; abdomen not distended Percussion/Palpation: abdomen soft; abdomen nontender Musculoskeletal: no cyanosis or clubbing, extremities motor strength 5/5 Neurologic: normal touch/pain/proprioception, normal sensation to monofilament and moves all extremities Psychiatric: A+Ox3, euthymic affect Results & Data Results & Data ([facility]) Vital Signs (Past 12 Hours) Vital Signs Temp Pulse Resp BP Pulse Ox 04/30/22 07:41 36.4 C L 64 18 142/61 H 96 Medications Administered Current Inpatient Medications Acetaminophen (Acetaminophen 325 Mg Tab) 650 mg PO Q4H PRN PRN Reason: pain/fever Stop: 05/29/22 00:32 Aspirin (Aspirin 81 Mg Ectab) 81 mg PO QAM [facility] Stop: 05/29/22 08:59 Last Admin: 04/30/22 07:41 Dose: 81 mg Documented by: Atorvastatin Calcium (Atorvastatin 40 Mg Tab) 40 mg PO QPM [facility] Stop: 05/29/22 20:59 Last Admin: 04/29/22 21:02 Dose: 40 mg Documented by: Calcitriol (Calcitriol 0.25 Mcg Capsule) 0.25 mcg PO QAM [facility] Stop: 05/29/22 08:59 Last Admin: 04/30/22 07:40 Dose: 0.25 mcg Documented by: Citalopram Hydrobromide (Citalopram 40 Mg Tab) 40 mg PO QAM [facility] Stop: 05/29/22 08:59 Last Admin: 04/30/22 07:40 Dose: 40 mg Documented by: Dextrose (Dextrose 50% 50 Ml Syringe) 25 - 50 ml IV UD PRN; Protocol PRN Reason: Hypoglycemia Protocol Stop: 05/29/22 00:32 Fidaxomicin (Fidaxomicin 200 Mg Tab) 200 mg PO BID [facility] Stop: 05/09/22 03:59 Last Admin: 04/30/22 07:40 Dose: 200 mg Documented by: Finasteride (Finasteride 5 Mg Tab) 5 mg PO HS [facility] Stop: 05/29/22 00:32 Last Admin: 04/29/22 21:00 Dose: 5 mg Documented by: Fluticasone/Vilanterol (Fluticasone/Vilanterol 200/25mcg 14 Puffs/Inhaler) 1 puffs INH DAILY [facility] Stop: 05/29/22 08:59 Last Admin: 04/30/22 07:39 Dose: 1 puffs Documented by: Glucagon (Glucagon For Inj 1 Mg Vial) 1 mg SQ UD PRN; Protocol PRN Reason: Hypoglycemia Protocol Stop: 05/29/22 00:32 Glucose (Glucose 10 Tabs/Tube) 4 - 8 tabs PO UD PRN; Protocol PRN Reason: Hypoglycemia Protocol Stop: 05/29/22 00:32 Glucose (Glucose 40% Gel 15 Gm Tube) 15 - 30 gm PO UD PRN; Protocol PRN Reason: Hypoglycemia Protocol Stop: 05/29/22 00:32 Heparin Sodium (Porcine) (Heparin Sod 5,000 Unit/0.5 Ml Vial) 5,000 units SQ Q8 [facility] Stop: 05/29/22 00:32 Last Admin: 04/30/22 06:13 Dose: 5,000 units Documented by: Promethazine HCl 6.25 mg/ (Sodium Chloride) 50.25 mls @ 201 mls/hr IV Q6H PRN PRN Reason: Nausea And Vomiting Stop: 05/29/22 00:32 Insulin Aspart (Insulin Aspart Per Unit) 0 units SC ACHS [facility] Stop: 05/29/22 00:32 Last Admin: 04/30/22 08:52 Dose: 2 units Documented by: Loperamide HCl (Loperamide Hcl 2 Mg Cap) 2 mg PO Q4H PRN PRN Reason: Diarrhea Stop: 05/29/22 14:53 Last Admin: 04/30/22 07:40 Dose: 2 mg Documented by: Miscellaneous (Carbohydrates For Hypoglycemia ) 15 - 30 gm PO UD PRN PRN Reason: Hypoglycemia Protocol Stop: 05/29/22 00:32 Last Admin: 04/29/22 17:06 Dose: 15 gm Documented by: Sevelamer HCl (Sevelamer Hcl 800 Mg Tablet) 800 mg PO TIDM [facility] Stop: 05/29/22 07:59 Last Admin: 04/30/22 07:40 Dose: 800 mg Documented by: Tamsulosin HCl (Tamsulosin Hcl 0.4 Mg Cap) 0.4 mg PO HS [facility] Stop: 07/25/22 20:59 Last Admin: 04/29/22 21:02 Dose: 0.4 mg Documented by: Vitamin B Complex/Folic Acid (Nephrocaps) 1 cap PO DAILY [facility] Stop: 05/29/22 08:59 Last Admin: 04/30/22 07:41 Dose: 1 cap Documented by: Vitamin D (Cholecalciferol 1,000 Units 25 Mcg Tab) 1,000 units PO QAM [facility] Stop: 05/29/22 08:59 Last Admin: 04/30/22 07:40 Dose: 1,000 units Documented by:
--- NOTE | 2022-04-30 18:01 | Electrocardiogram Report ---
Test Reason : Blood Pressure : / mmHG Vent. Rate : 068 BPM Atrial Rate : 068 BPM P-R Int : 150 ms QRS Dur : 140 ms QT Int : 510 ms P-R-T Axes : 063 -66 063 degrees QTc Int : 542 ms Normal sinus rhythm Right bundle branch block Left anterior fascicular block Bifascicular block Voltage criteria for left ventricular hypertrophy Cannot rule out Septal infarct (cited on or before 12-MAR-2022) Abnormal ECG When compared with ECG of 12-APR-2022 21:36, No significant change Confirmed by Kevin Simon ([id number]) on 04/30/2022 6:01:30 PM Referred By: REFERRED SELF Confirmed By:Kevin Simon
--- NOTE | 2022-05-08 08:23 | Discharge Summary ---
Date of Service April 30, 2022 Admission HPI Per Admitting Provider History obtained from patient, family, and records. Medical history is significant for chronic diastolic heart failure (EF 55 to 60%, TTE 2021), status post TAVR, CAD/PVD as per records COPD, hypertension, hyperlipidemia, DM2 diet-controlled, ESRD on HD, BPH, chronic anemia (baseline hemoglobin 8-9 ), ongoing tobacco abuse, recent C. difficile colitis status post vancomycin Rx Recent confinement April 13 to 2021 for ambulatory dysfunction/generalized weakness. Patient found to have C. difficile status post vancomycin Rx. Persistent diarrhea continuing home upon discharge. No abdominal pain. Patient feels weak and dehydrated. Patient denies chest pain, SOB, abdominal pain symptoms Patient brought to ER for evaluation. Oral vancomycin given for persistent C. difficile. MEDICAL HISTORY: As above. SURGERIES: He has had a cholecystectomy, but ocular procedures, ex lap, enterolysis, TAVR FAMILY HISTORY: Diabetes. PERSONAL AND SOCIAL HISTORY: Half pack daily. 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 Admission Exam Per Admitting Provider Physical Exam: GENERAL: Comfortable, pleasant, no respiratory distress SKIN: Pallor,, warm HEENT: Pale palpebral conjunctivae, no ptosis, dry buccal mucosa NECK : Supple, no tenderness CHEST : Decreased breath sounds, occasional expiratory wheezes, no tenderness HEART : RRR, no obvious murmurs ABDOMEN: Some distention, nontender EXTREMITIES : No LE swelling/tenderness, no other conspicuous deformities noted NEUROLOGIC : Coherent, no facial asymmetry, no other gross focality Principal Diagnosis Persistent C. difficile diarrhea, end-stage renal disease on hemodialysis, chronic controlled diastolic heart failure, CAD s/p TAVR, stable COPD Discharge Exam Constitutional well developed, well nourished and + ill appearing; no acute distress Eyes PERRL, conjunctivae normal, anicteric sclerae ENMT external ear and nose normal, oropharynx normal Neck trachea midline, no thyromegaly Respiratory no respiratory distress Auscultation: lungs clear to auscultation bilaterally Cardiovascular Rate/Rhythm: regular rate and regular rhythm; not tachycardic Heart Sounds: normal S1 and normal S2; no murmur Extremities: no edema Gastrointestinal (Abdomen) Inspection/Auscultation: normal bowel sounds; abdomen not distended Percussion/Palpation: abdomen soft; abdomen nontender Musculoskeletal no cyanosis or clubbing, extremities motor strength 5/5 Neurologic normal touch/pain/proprioception, normal sensation to monofilament and moves all extremities Psychiatric A+Ox3, euthymic affect Discharge Data Allergies Allergy/AdvReac Type Severity Reaction Status Date / Time No Known Allergies Allergy Verified 04/12/22 22:33 Consultations 04/28/22 20:10 ED Decision to Admit Stat 04/29/22 03:50 Consult Nephrology Routine Ordered Studies 04/28/22 16:26 CT abd pelvis wo con Stat Hospital Course (1) Clostridioides difficile diarrhea: Persistent symptoms Patient nontoxic. Has been in started on Dificid Still continues to have diarrhea Will try Imodium to control diarrhea Denies any abdominal pain, distention, nausea and or vomiting PT/OT Eval-has been ambulating in the hallway without any difficulties and symptoms Diarrhea is controlled without any abdominal symptoms He will be discharged home this afternoon on Dificid to finish the course of for 10 days ESRD on HD chronic anemia, hemoglobin better to baseline likely secondary to hemoconcentration Appreciate nephrology input and recommendation Has had dialysis yesterday and will need dialysis on Sunday Chronic diastolic heart failure (EF 55 to 60%, TTE 2021), patient on the dry side hx status post TAVR, CAD/PVD as per records Troponin is mildly elevated likely secondary to end-stage renal disease Doubt any ACS No acute shortness of breath COPD, not in acute exacerbation Hypertension, BP on the lower side Hyperlipidemia on statin Rx DM2 diet-controlled, well-controlled as of recent hemoglobin A1c of 5.06 April 2022 ISS BG goal 1 10-1 40, carb count coverage Ongoing tobacco abuse Nicotine patch as needed DVT prophylaxis. Heparin subcu Full code Patient daughter requesting updates from providers. Ms. Krystal Valdez, contact #[phone]..-Discussed with the daughter Total Time Total Time Spent Total Time Spent (In Minutes): 35 minutes Discharge Plan Discharge Items Patient Disposition: Home - Self-Care Reason For Visit: C-DIF DIARRHEA Discharge Diagnosis: Persistent C. difficile diarrhea, end-stage renal disease on hemodialysis, chronic controlled diastolic heart failure, CAD s/p TAVR, stable COPD Condition on Discharge: Fair Activity: Resume your previous activity Non-emergency contact: Primary Care Provider Call non-emergency contact if: you have any medication questions and your symptoms worsen Follow-up/Referrals: Laron Peña MD [Primary Care Provider] - (Your doctor's office will call you with an appointment within 7 days) Diet: Heart Healthy Fluids: 1500ml (6 cups) Addtl Attending Provider Instructions: Please take precautions to avoid fall Please finish the course of your antibiotics You can try Imodium for diarrhea more than 3 or 4 times a day Please give appointment with your healthcare providers Pending Studies at Discharge: No Stand-Alone Forms: [facility], Smoking Cessation Medications and DC Order Prescriptions: Continued atorvastatin 40 mg Tablet 40 mg PO QPM RF: 0 citalopram 40 mg Tablet 40 mg PO QAM RF: 0 tamsulosin 0.4 mg Capsule 0.4 mg PO HS RF: 0 finasteride 5 mg Tablet 5 mg PO HS RF: 0 cholecalciferol (vitamin D3) [Vitamin D3] 1,000 unit (25 mcg) Tablet 1,000 unit PO QAM RF: 0 albuterol sulfate 90 mcg/actuation HFA aerosol inhaler 2 puff inhalation Q6H PRN (Reason: Shortness Of Breath Or Wheezing) RF: 0 aspirin 81 mg Tablet,Delayed Release (Dr/Ec) 81 mg PO QAM RF: 0 calcitriol 0.25 mcg capsule 0.25 mcg PO QAM RF: 0 sevelamer carbonate 800 mg tablet 800 mg PO TIDM RF: 0 Mircera 30 mcg/0.3 mL Syringe 30 mcg IV MONTHLY RF: 0 fluticasone furoate-vilanterol [Breo Ellipta] 200-25 mcg/dose Blister With Device 1 inh INHALATION DAILY RF: 0 Renal Caps 1 mg Capsule 1 cap PO DAILY RF: 0 polyethylene glycol 3350 [Miralax] 17 gram powder in packet 17 g PO DAILY RF: 0 Discharge Orders: Discharge Order (Routine); Ordered 04/30/22 Ordered By: Sue Crabtree Admission Data Admit Date/Time: 04/28/22 22:19 Attending Provider: Sue Crabtree Admit Provider: Rian Whaley Primary Care Provider: Laron Peña Other Providers: Rian Whaley ; Helen Horta ; Pro Ortiz ; Radha Ware ; Leandra Candelaria ; Dickson Espinoza Other Interventions: Discharge Summary Assessment (RN) Last Done: 04/30/22 13:59
== END 2022-04-30 14:35 | disposition home or self-care (01) ==
LOC: ED 15:35 → 3E 22:19 → INTOOBSV 22:19 → 3E 23:37

== ENCOUNTER 2023-03-20 00:14 | Inpatient (IN) ==
[2023-03-20] MEDS ORDERED: MECLIZINE HCL 25 MG TAB PO STA (00:22)
--- NOTE | 2023-03-20 00:28 | Emergency Department Note ---
Impression & Plan Dizziness, Abnormal ECG, CKD (chronic kidney disease), Tobacco abuse ED Provider Note ED Provider Note NAME: FERNANDA FLORES AGE:78 SEX: Male : 1945 ARRIVES VIA: EMS INFORMANT: Patient ED PROVIDER(s): Cecilia Lala DO CHIEF COMPLAINT: Dizziness HPI: This is an 78-year-old male presents emerged department via EMS after an abrupt onset of dizziness with accompanying diaphoresis, nausea and vomiting. Patient states he was seated on the couch when the symptoms began abruptly. No prior similar events. He denies any accompanying headache, chest pain, palpitations, trouble breathing. Patient did have his usual dialysis today without incident. No recent change in any medications. No recent illness, URI symptoms, fevers or chills. Patient states he still makes urine and this is otherwise look normal to him. No change in bowel movements. Patient given zofran by EMS. PAST MEDICAL HISTORY:See Below PAST SURGICAL HISTORY:See Below FAMILY HISTORY:See Below SOCIAL HISTORY:See Below HOME MEDICATIONS:See Below ALLERGIES:See Below VITALS:See Below PHYSICAL EXAMINATION: GENERAL: alert, well appearing, well nourished, no distress, non-toxic EYE EXAM: normal conjunctiva, PERRL and EOM's grossly intact, rightward horizontal nystagmus noted OROPHARYNX: no exudate, no erythema, lips, buccal mucosa, and tongue normal and mucous membranes are moist NECK: supple, no nuchal rigidity, no adenopathy, non-tender LUNGS: Clear to auscultation. Normal chest wall mechanics, no w/r/r HEART: no murmurs, S1 normal and S2 normal ABDOMEN: abdomen soft, non-tender, normo-active bowel sounds, no masses, no rebound or guarding. BACK: Back is symmetrical on inspection and there is no deformity, no midline tenderness, no CVA tenderness. SKIN: no rashes, petechiae, orbruising UPPER EXTREMITIES: upper extremities are grossly normal. FROM, nml pulses b/l. Fistula noted in the left upper extremity. LOWER EXTREMITIES: No pitting edema. FROM, nml pulses b/l. NEURO EXAM: Normal sensorium, cranial nerves II-XII grossly intact, normal speech, no facial droop,nogross weakness of arms, no gross weakness of legs. Gross sensation intact. No ataxia. Vital Signs: reviewed and remarkable Differential Diagnosis: Differential diagnosis includes etiologies such as benign positional vertigo, dehydration, hypovolemia, anemia, tumor, infection, hypoglycemia, electrolyte abnormalities, cardiac sources, intracerebral event, toxicologic, neurologic, as well as others were entertained. MEDICAL DECISION MAKING: This is an 78-year-old male presents emergency department due to abrupt onset of dizziness, nausea and vomiting. Patient was afebrile and vital signs stable on arrival, mild hypertension was noted. Labs drawn and sent, IV established, EKG and chest x-ray performed at bedside and interpreted by me, patient placed on telemetry. Patient was given Zofran and eventually meclizine with improvement of his symptoms. Head CT on the patient was reassuring as were labs and imaging. Abnormalities noted to patient's renal function however this was expected given he has known CKD and is a dialysis patient. Patient noted to have changes on his EKG today compared to prior. While he denied chest pain or difficulty breathing, patient is high risk for coronary artery disease. I also discussed with him multiple risk factors for a stroke. Case discussed with hospitalist for additional evaluation regarding the abnormal EKG in a patient with risk factors and history as well as possible need for additional neuroimaging. Consultation(s): 0309: Discussed with Dr. Baez. ER Treatment Provided: See below 0140: Patient states he is feeling improved at this time, no further dizziness, no further nausea. We discussed results. Family states patient had a TAVR performed at [facility] in [place] approximately 8 to 9 months ago. He does not otherwise routinely follow with cardiology. Diagnostics Interpreted By Me: -ECG: Sinus bradycardia at 54, leftward axis, right bundle branch block, inverted T waves noted in 2, 3, aVF which are new compared to prior from April 28, 2022 -Cardiac Monitoring: An order was placed for continuous cardiac monitoring. The monitor shows a rate of 60 with normal sinus rhythm. -Laboratory studies: As stated above and show below. -Imaging studies: X-ray Chest: A single view study of the chest was reviewed and was negative for cardiomegaly, focal infiltrate, effusion, pulmonary edema, or wide mediastinum. Triage Nursing Note Reviewed Prior/Outside Records Reviewed - [facility] [place] of prior [place]R and old EKG Past Med/Surg History Medical History Anxiety and depression AV fistula left wrist BPH (benign prostatic hyperplasia) CHF (congestive heart failure) Chronic anemia CKD (chronic kidney disease) stage 5, GFR less than 15 ml/min follows with Dr. Jay Diabetes mellitus, type 2 NIDDM ESRD (end stage renal disease) on dialysis M/W/F > Yue in [place] Hyperlipidemia Hypertension Osteoarthritis PAD (peripheral artery disease) Peritoneal dialysis catheter in situ since removed Tobacco use Surgical History Cardiac murmur no cardio History of cataract surgery RT/LEFT History of cholecystectomy History of colonoscopy History of esophagogastroduodenoscopy (EGD) History of procedure for peripheral vascular disease LEFT LEG (STENT PLACED) History of tooth extraction SBO (small bowel obstruction) with surgical intervention Family History Brother Cancer Social History Smoking Status: Current every day smoker Tobacco Type: Cigarettes Cigarettes Per Day: 6-8; Second Hand Exposure: No; Do You Dip or Chew Tobacco: No; Hx Alcohol Use: No Hx Substance Use: No Preferred Language: Ecuadorean Communication Ability: Effective Elocution Teacher Required: No Beliefs That Will Affect Care: None Current Living Situation: Alone Current Living Situation Comment: caregiver that comes in How many Children do You have: 1 Other Information That Helps Us Care for You: No Feels Safe at Home: Yes Safety Concerns: Feels Safe At This Time Assistive Devices: Walker Allergies Allergies Allergy/AdvReac Type Severity Reaction Status Date / Time No Known Allergies Allergy Verified 03/20/23 00:42 Home Meds Home Medications Medication Instructions Recorded Confirmed atorvastatin 40 mg tablet 40 mg PO HS 07/31/19 03/20/23 cholecalciferol (vitamin D3) 25 1,000 unit PO QAM 07/31/19 03/20/23 mcg (1,000 unit) tablet (Vitamin D3) citalopram 40 mg tablet (Celexa) 40 mg PO QAM 07/31/19 03/20/23 finasteride 5 mg tablet 5 mg PO 07/31/19 03/20/23 aspirin 81 mg tablet,delayed 81 mg PO QAM 01/06/20 03/20/23 release fluticasone furoate 200 1 inh inhalation HS 03/12/22 03/20/23 mcg-vilanterol 25 mcg/dose inhalation powder (Breo Ellipta) amlodipine 2.5 mg tablet 2.5 mg PO HS 03/20/23 03/20/23 sennosides 8.6 mg-docusate sodium 1 tab-cap PO DAILY 03/20/23 03/20/23 50 mg tablet (Senna Plus) tamsulosin 0.4 mg capsule 0.4 mg PO DAILY 03/20/23 03/20/23 Results & Data (ED) Vital Signs Vital Signs - 24 hr 03/20/23 00:35 03/20/23 00:35 03/20/23 00:35 Temperature 36.3 C L 36.3 C L Temperature Source Oral Oral Pulse Rate 51 L Pulse Rate [Finger] Respiratory Rate 16 16 Respiratory Effort / Characteristics Non-Labored Spontaneous Non-Labored Spontaneous Respiratory Depth Normal Normal Blood Pressure 179/66 H Blood Pressure [Right Arm] Blood Pressure Mean 103 Blood Pressure Mean [Right Arm] Pulse Oximetry 100 100 100 Oxygen Delivery Method Room Air Room Air Oxygen Flow Rate 0 Sepsis New/Unexplained Change in Mental Status N/A Sepsis Action Taken by Nursing No Action Required 03/20/23 00:56 03/20/23 02:37 03/20/23 02:45 Temperature Temperature Source Pulse Rate 48 L 56 L 56 L Pulse Rate [Finger] Respiratory Rate 21 14 Respiratory Effort / Characteristics Respiratory Depth Blood Pressure Blood Pressure [Right Arm] Blood Pressure Mean Blood Pressure Mean [Right Arm] Pulse Oximetry Oxygen Delivery Method Oxygen Flow Rate Sepsis New/Unexplained Change in Mental Status Sepsis Action Taken by Nursing 03/20/23 03:18 Temperature Temperature Source Pulse Rate Pulse Rate [Finger] 52 L Respiratory Rate 18 Respiratory Effort / Characteristics Respiratory Depth Blood Pressure Blood Pressure [Right Arm] 129/53 L Blood Pressure Mean Blood Pressure Mean [Right Arm] 78 Pulse Oximetry 97 Oxygen Delivery Method Room Air Oxygen Flow Rate Sepsis New/Unexplained Change in Mental Status Sepsis Action Taken by Nursing Laboratory Data 03/20/23 00:30 03/20/23 00:30 Lab Results 03/20/23 03/20/23 03/20/23 Range/Units 00:30 00:30 00:30 WBC 7.31 (4.8-10.8) K/ul RBC 4.02 L (4.70-6.10) M/uL Hgb 13.1 L (14.0-18.0) g/dl Hct 41.0 L (42.0-52.0) % MCV 102.0 H (80.0-100.0) fL MCH 32.6 (25.0-34.0) pg MCHC 32.0 (32.0-36.0) g/dL RDW Std Deviation 51.0 H (36.4-46.3) fL RDW Coeff of Danny 13.4 (11.5-14.5) % Plt Count 107 L (130-400) K/uL MPV 11.0 (9.4-12.4) fL Immature Gran % (Auto) 0.7 % Neut % (Auto) 64.5 % Lymph % (Auto) 17.8 % Hudson % (Auto) 7.3 % Eos % (Auto) 9.3 % Baso % (Auto) 0.4 % Neut # (Auto) 4.72 (1.40-6.50) K/uL Lymph # (Auto) 1.30 (1.2-3.4) K/uL Hudson # (Auto) 0.53 (0.11-0.59) K/uL Eos # (Auto) 0.68 H (0-0.50) K/uL Baso # (Auto) 0.03 (0-0.2) K/uL Immature Gran # (Auto) 0.05 (0.01-0.20) K/uL Sodium 136 (136-145) mmol/L Potassium 4.8 (3.5-5.1) mmol/L Chloride 97 L (98-107) mmol/L Carbon Dioxide 28 (21-32) mmol/L Anion Gap 11 (3-11) BUN 56 H (6-23) mg/dl Creatinine 4.44 H (0.6-1.4) mg/dl Est Cr Clr Drug Dosing Not Reportable Est GFR ( Amer) 13.5 ml/min Est GFR (Non-Af Amer) 11.7 ml/min BUN/Creatinine Ratio 12.6 (10-20) Glucose 167 H (70-99(Fasting)) mg/dl Calcium 8.8 (8.6-10.3) mg/dl Magnesium 2.2 (1.7-2.4) mg/dl Total Bilirubin 0.5 (0.2-1.0) mg/dl AST 21 (13-39) U/L ALT 22 (7-52) U/L Alkaline Phosphatase 99 (34-104) U/L Total Protein 7.1 (6.0-8.3) gm/dl Albumin 4.2 (3.4-5.0) gm/dl Globulin 2.9 (2.5-4.0) gm/dl Albumin/Globulin Ratio 1.4 (0.9-2) TSH 4.219 (0.300-4.500) uIu/ml SARS-CoV-2, RNA, NAAT (NEGATIVE) 03/20/23 Range/Units 02:32 WBC (4.8-10.8) K/ul RBC (4.70-6.10) M/uL Hgb (14.0-18.0) g/dl Hct (42.0-52.0) % MCV (80.0-100.0) fL MCH (25.0-34.0) pg MCHC (32.0-36.0) g/dL RDW Std Deviation (36.4-46.3) fL RDW Coeff of Danny (11.5-14.5) % Plt Count (130-400) K/uL MPV (9.4-12.4) fL Immature Gran % (Auto) % Neut % (Auto) % Lymph % (Auto) % Hudson % (Auto) % Eos % (Auto) % Baso % (Auto) % Neut # (Auto) (1.40-6.50) K/uL Lymph # (Auto) (1.2-3.4) K/uL Hudson # (Auto) (0.11-0.59) K/uL Eos # (Auto) (0-0.50) K/uL Baso # (Auto) (0-0.2) K/uL Immature Gran # (Auto) (0.01-0.20) K/uL Sodium (136-145) mmol/L Potassium (3.5-5.1) mmol/L Chloride (98-107) mmol/L Carbon Dioxide (21-32) mmol/L Anion Gap (3-11) BUN (6-23) mg/dl Creatinine (0.6-1.4) mg/dl Est Cr Clr Drug Dosing Est GFR ( Amer) ml/min Est GFR (Non-Af Amer) ml/min BUN/Creatinine Ratio (10-20) Glucose (70-99(Fasting)) mg/dl Calcium (8.6-10.3) mg/dl Magnesium (1.7-2.4) mg/dl Total Bilirubin (0.2-1.0) mg/dl AST (13-39) U/L ALT (7-52) U/L Alkaline Phosphatase (34-104) U/L Total Protein (6.0-8.3) gm/dl Albumin (3.4-5.0) gm/dl Globulin (2.5-4.0) gm/dl Albumin/Globulin Ratio (0.9-2) TSH (0.300-4.500) uIu/ml SARS-CoV-2, RNA, NAAT NEGATIVE (NEGATIVE) Administered Medications Discontinued Medications Meclizine HCl (Meclizine Hcl 25 Mg Tab) 25 mg PO NOW STA Stop: 03/20/23 00:23 Last Admin: 03/20/23 00:45 Dose: 25 mg Documented By: KARISSA Imaging Data Radiologist's Impression: Head CT 03/20/23 00:22 Exam(s): CT HEAD Without Contrast EXAM: CT Head Without Intravenous Contrast CLINICAL HISTORY: Reason for exam: dizziness. TECHNIQUE: Axial computed tomography images of the head/brain without intravenous contrast. CTDI is 38.56 mGy and DLP is 625.8 mGy-cm. Automated exposure control was utilized for the study. A dose lowering technique was utilized adhering to the principles of ALARA. COMPARISON: No relevant prior studies available. FINDINGS: Brain: Generalized proximal volume loss. Quinn-white matter differentiation maintained. No acute intracranial hemorrhage, mass- effect, or edema. Ventricles: Unremarkable. No hydrocephalus. Bones/joints: Unremarkable. No acute fracture. Soft tissues: Unremarkable. Vasculature: Intracranial atherosclerosis. Sinuses: Unremarkable as visualized. No acute sinusitis. Mastoid air cells: Unremarkable as visualized. No mastoid effusion. IMPRESSION: No acute intracranial process. Electronically signed by: Nunu Beltran M.D. 03/20/23 01:28 AM Discharge Plan Visit Data Chief Complaint: Weakness Stated Complaint: N/V/D WEAKNESS ED Provider: Cecilia Lala Discharge Problem: Dizziness, Abnormal ECG, CKD (chronic kidney disease), Tobacco abuse Patient Disposition: Admitted As Inpatient Discharge Instructions Interventions: ED Discharge Assessment Last Done: 03/20/23 04:58
[2023-03-20 00:51] LABS: Basophils # (auto) 0.03 K/uL (0-0.2); Basophils % (auto) 0.4 %; Eosinophils # (auto) 0.68 K/uL (0-0.50); Eosinophils % (auto) 9.3 %; Hemoglobin 13.1 g/dl (14.0-18.0); Immature Granulocytes # (auto) 0.05 K/uL (0.01-0.20); Immature Granulocytes % (auto) 0.7 %; Lymphocytes % (auto) 17.8 %; Mean Corpuscular Hemoglobin 32.6 pg (25.0-34.0); Monocytes # (auto) 0.53 K/uL (0.11-0.59); Monocytes % (auto) 7.3 %; Neutrophils # (auto) 4.72 K/uL (1.40-6.50); Neutrophils % (auto) 64.5 %; Platelet Count 107 K/uL (130-400); RDW Coefficient of Variation 13.4 % (11.5-14.5); Red Blood Count 4.02 M/uL (4.70-6.10); White Blood Count 7.31 K/ul (4.8-10.8)
[2023-03-20 01:00] LABS: Alanine Aminotransferase 22 U/L (7-52); Albumin Globulin Ratio 1.4 (0.9-2); Albumin Level 4.2 gm/dl (3.4-5.0); Alkaline Phosphatase 99 U/L (34-104); Anion Gap 11 (3-11); Aspartate Aminotransferase 21 U/L (13-39); BUN Creatinine Ratio 12.6 (10-20); Bilirubin,Total 0.5 mg/dl (0.2-1.0); Blood Urea Nitrogen 56 mg/dl (6-23); Calcium 8.8 mg/dl (8.6-10.3); Carbon Dioxide 28 mmol/L (21-32); Chloride 97 mmol/L (98-107); Est GFR (African American) 13.5 ml/min; Est GFR (Non-African American) 11.7 ml/min; Globulin 2.9 gm/dl (2.5-4.0); Glucose 167 mg/dl (70-99(Fasting)); Magnesium 2.2 mg/dl (1.7-2.4); Potassium 4.8 mmol/L (3.5-5.1); Sodium 136 mmol/L (136-145); Total Protein 7.1 gm/dl (6.0-8.3)
--- NOTE | 2023-03-20 01:29 | CT Scan Report ---
Exam(s): CT HEAD Without Contrast EXAM: CT Head Without Intravenous Contrast CLINICAL HISTORY: Reason for exam: dizziness. TECHNIQUE: Axial computed tomography images of the head/brain without intravenous contrast. CTDI is 38.56 mGy and DLP is 625.8 mGy-cm. Automated exposure control was utilized for the study. A dose lowering technique was utilized adhering to the principles of ALARA. COMPARISON: No relevant prior studies available. FINDINGS: Brain: Generalized proximal volume loss. Quinn-white matter differentiation maintained. No acute intracranial hemorrhage, mass- effect, or edema. Ventricles: Unremarkable. No hydrocephalus. Bones/joints: Unremarkable. No acute fracture. Soft tissues: Unremarkable. Vasculature: Intracranial atherosclerosis. Sinuses: Unremarkable as visualized. No acute sinusitis. Mastoid air cells: Unremarkable as visualized. No mastoid effusion. IMPRESSION: No acute intracranial process. Electronically signed by: Nunu Beltran M.D. 03/20/23 01:28 AM
[2023-03-20] MEDS ORDERED: ALBUTEROL HFA 8 GM INHALER INH PRN (05:18)
[2023-03-20] MEDS ORDERED: ACETAMINOPHEN 325 MG TAB PO PRN (05:18)
[2023-03-20] MEDS ORDERED: NITROGLYCERIN SL 0.4 MG/TAB TAB SL PRN (05:18)
[2023-03-20] MEDS ORDERED: POLYETHYLENE (MIRALAX) 17 GM PACK PO PRN (05:18)
--- NOTE | 2023-03-20 06:09 | History and Physical Report ---
DATE OF ADMISSION: 03/20/2023. CHIEF COMPLAINT: Dizziness. HISTORY OF PRESENT ILLNESS: This is an 78-year-old male with past medical history significant for end-stage renal disease, on hemodialysis; history of hypothyroidism due to renal insufficiency; history of diabetes, diet controlled; history of COPD; hypertension; peripheral vascular disease; history of aortic stenosis, status post TAVR; history of BPH; anemia of chronic disease; depression, presents with dizziness. The patient says he was sitting on the chair when he felt suddenly dizzy. Denies any chest pain. No spinning of the room. Denies any nausea. It seems it lasted about half an hour; when he was walking, he felt a little imbalance for some time. He says he walks with a walker. He lives alone. Daughter lives upstairs. At that time, he also had some diaphoresis. Currently he is declining any nausea or vomiting. Denies any shortness of breath. No fevers, no difficulty swallowing. No blurred visions, no earache. Has some runny nose. No sore throat. No cough. Denies any diarrhea at this time. He had dialysis yesterday. Currently in the ER, he is resting comfortably, hemodynamically stable. His heart rate is somewhat on the lower side in the 50s. ALLERGIES: No known drug allergies. PAST MEDICAL HISTORY: As mentioned above. PAST SURGICAL HISTORY: AV access, cardiac catheterization in January 2022 showed multiple 10% to 30% irregularities, colonoscopy, EGDs, exploratory laparotomy, enterolysis of the intestines, open cholecystectomy, Percutaneous aortic valve replacement. MEDICATIONS: The patient is on amlodipine 2.5 mg p.o. at bedtime, aspirin 81 mg p.o. a.m., atorvastatin 40 mg p.o. at bedtime, vitamin D 1000 units p.o. a.m., Celexa 40 mg p.o. daily, finasteride 5 mg p.o. at bedtime, Breo Ellipta one inhalation at bedtime, Senokot S one tablet daily, Flomax 0.4 mg p.o. daily. FAMILY HISTORY: Significant for brother has cancer. SOCIAL HISTORY: Single, lives alone. Daughter lives upstairs. Smoking half pack a day. No alcohol use. No drug use. REVIEW OF SYSTEMS: As per HPI. Rest of the review of systems is negative. PHYSICAL EXAMINATION: GENERAL: The patient is of moderate build, alert and oriented, not in acute distress. VITAL SIGNS: Temperature 36.3, pulse 52, respiratory rate 18, blood pressure 129/53, oxygen 97% on room air. HEENT: Pupils equal, round, and reactive to light. Extraocular muscles intact. No nystagmus is seen. No facial droop. Oral mucosa moist. NECK: No JVD. No neck masses. CARDIOVASCULAR: S1 and S2 heard. Ejection systolic murmur in aortic area. Regular rate and rhythm. RESPIRATORY SYSTEM: Normal AP diameter. No accessory muscle use. No wheezing or crackles. ABDOMEN: Soft, bowel sounds present, nontender, no distention. CENTRAL NERVOUS SYSTEM: Alert and oriented x3. Speech is clear. No facial droop. Obeys simple commands. Power 5/5 in the extremities. Sensation intact. No pronator drift. Coordination of movements normal. Position sense intact. EXTREMITIES: No edema, no erythema. LABORATORY DATA: WBC 7.3, hemoglobin 13.1, hematocrit 41, platelets 107. Sodium 136, potassium 4.8, chloride 97, CO2 of 28, BUN 56, creatinine 4.4, serum glucose 167, calcium 8.8, magnesium 2.2, total bilirubin 0.5, AST 21, ALT 22, alkaline phosphatase 99. TSH 4.2. SARS-CoV-2 rapid test negative. IMAGING DATA: CT of the head without contrast, no acute intracranial process. Chest x-ray, no acute process. EKG: Sinus bradycardia with PACs at a rate of 54, right bundle-branch block, left anterior fascicular block, T-wave inversions seen in the inferior leads. ASSESSMENT AND PLAN: This is an 78-year-old male who presents with dizziness. 1. Dizziness. CT of the head is unremarkable. States it lasted for half an hour, had imbalance for a short period of time. Currently seems okay. Will monitor in the tele floor. Because of the imbalance episode, will consult neurology while the patient is in the hospital. 2. EKG changes, some T-wave inversions in the inferior leads: Seem to be more pronounced. Will follow the troponins, echo. Will keep him n.p.o. Consult cardiology. Monitor in tele. 3. End-stage renal disease, on dialysis: Consult nephrology. 4. History of diabetes: Not on any medication. Follow HbA1c level. Follow his blood sugars. 5. History of hyperlipidemia: Continue statin. 6. History of nonobstructive coronary artery disease: Seems cardiac catheterization in January of 2022 showed multiple 10% to 30% irregularities. On aspirin and statin. Await cardiac input. 7. History of benign prostatic hypertrophy: Continue his home medications. 8. History of tobacco abuse, chronic obstructive pulmonary disease: Stable. Continue home inhalers. 9. History of Clostridium difficile in the past. 10. Thrombocytopenia: Platelets of 107. Follow the labs. Needs followup. 11. Hx of TAVR 12. Deep venous thrombosis prophylaxis: Sequential compression devices for now. DISPOSITION: Closely monitor in the tele floor. Level 1 full code. Expect to discharge home and follow with family doctor. Job ID: [id number] [facility] MEDICAL CENTERCarolyn
[2023-03-20 06:50] LABS: Basophils # (auto) 0.04 K/uL (0-0.2); Basophils % (auto) 0.5 %; Eosinophils # (auto) 0.15 K/uL (0-0.50); Eosinophils % (auto) 1.9 %; Hematocrit (blood only) 42.1 % (42.0-52.0); Hemoglobin 13.7 g/dl (14.0-18.0); Immature Granulocytes # (auto) 0.03 K/uL (0.01-0.20); Immature Granulocytes % (auto) 0.4 %; Lymphocytes # (auto) 2.01 K/uL (1.2-3.4); Lymphocytes % (auto) 25.8 %; Mean Corpuscular Hemoglobin 32.8 pg (25.0-34.0); Mean Corpuscular Hgb Conc 32.5 g/dL (32.0-36.0); Mean Corpuscular Volume 100.7 fL (80.0-100.0); Mean Platelet Volume 10.9 fL (9.4-12.4); Monocytes # (auto) 0.58 K/uL (0.11-0.59); Monocytes % (auto) 7.4 %; Neutrophils # (auto) 4.98 K/uL (1.40-6.50); Platelet Count 112 K/uL (130-400); RDW Coefficient of Variation 13.5 % (11.5-14.5); RDW Standard Deviation 50.4 fL (36.4-46.3); Red Blood Count 4.18 M/uL (4.70-6.10); White Blood Count 7.79 K/ul (4.8-10.8)
--- NOTE | 2023-03-20 07:20 | XRay Report ---
XR chest 1V portable HISTORY: 78 years-old Male dizziness acute dizziness COMPARISON: Chest radiograph 04/28/2022 TECHNIQUE: AP view of the chest FINDINGS: Cardiac silhouette is enlarged. Aortic valvular endograft. Status post removal of the previously seen right IJ hemodialysis catheter. There is no pneumothorax, pleural effusion, airspace consolidation o r pulmonary edema. Mild chronic interstitial coarsening of the lungs. Surgical clips of the upper abd omen. Degenerative changes of the shoulders and spine. IMPRESSION: Cardiomegaly without acute process. ACT 112: Negative or not required by law. The above report was generated using voice recognition software. It may contain grammatical, syntax o r spelling errors. Electronically signed by: Malik Cooney M.D. 03/20/2023 7:19 AM
[2023-03-20 07:22] LABS: Estimated Average Glucose 117 mg/dl; Hemoglobin A1C 5.7 % (4.5-5.6)
[2023-03-20 07:30] LABS: BUN Creatinine Ratio 12.2 (10-20); Calcium 9.2 mg/dl (8.6-10.3); Creatinine Clr Calc Pharmacy 11.5 ml/min; Est GFR (African American) 12.2 ml/min; Est GFR (Non-African American) 10.5 ml/min; Magnesium 2.3 mg/dl (1.7-2.4); Potassium 5.3 mmol/L (3.5-5.1)
[2023-03-20] MEDS: ASPIRIN 81 MG ECTAB PO SCH (08:26)
[2023-03-20] MEDS: CHOLECALCIFEROL 1,000 UNITS 25 MCG TAB PO SCH (08:27)
[2023-03-20] MEDS: TAMSULOSIN HCL 0.4 MG CAP PO SCH (08:27)
[2023-03-20] MEDS: CITALOPRAM 40 MG TAB PO SCH (08:27)
--- NOTE | 2023-03-20 10:34 | Electrocardiogram Report ---
Test Reason : Blood Pressure : / mmHG Vent. Rate : 054 BPM Atrial Rate : 054 BPM P-R Int : 164 ms QRS Dur : 148 ms QT Int : 538 ms P-R-T Axes : 079 -59 -40 degrees QTc Int : 510 ms Sinus bradycardia with Premature atrial complexes Right bundle branch block Left anterior fascicular block Bifascicular block Minimal voltage criteria for LVH, may be normal variant T wave abnormality, consider inferior ischemia Abnormal ECG When compared with ECG of 28-APR-2022 16:50, Premature atrial complexes are now Present Confirmed by Jono Parson ([id number]) on 03/20/2023 10:33:46 AM Referred By: REFERRED SELF Confirmed By:Mukund Parson
--- NOTE | 2023-03-20 10:36 | Neurology Consultation ---
Date of Consultation March 20, 2023 Assessment & Plan (1) Dizziness: (2) ESRD (end stage renal disease) on dialysis: (3) Diabetes mellitus, type 2: Plan Patient had the acute onset of "dizziness" in the evening of March 19. This was most likely a positional vertigo and an inner ear problem. Today, he has no symptoms and is back to baseline. His neurologic examination is unremarkable with no focal findings, meningeal signs, or encephalopathy. certainly, I cannot exclude a small posterior fossa stroke. CT scan of the head was unremarkable. 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 He has end-stage renal disease on dialysis. Recommendations: 1. MRI of the brain Without contrast, with attention to the posterior fossa and inner ears. 2. consideration could be given to evaluate his cerebral vasculature (in lieu of his renal failure, carotid ultrasound and MR angiography of the head to avoid contrast). 3. Otherwise I have no further neurologic testing or treatment recommendations to make at this time. Overall, I spent a total of 75 minutes with this case including review of records, review of CT films, direct evaluation the patient at bedside, reports generation, and discussion of the case with patient and Dr. Lancaster, including differential diagnosis and treatment options. History of Present Illness Reason for Consultation: patient is a an 78-year-old, who was asked to see the request of Dr. Pineda, for neurologic evaluation regarding acute onset dizziness. Requesting Physician: Dr. Pineda Attending Physician: Jorge Lancaster MD History of Present Illness This patient has longstanding history of multiple medical problems including diabetes, hypertension, COPD, congestive heart failure, aortic stenosis status post TAVR procedure, hypothyroidism, and end-stage renal disease on hemodialysis. He has been taking 81 mg aspirin and atorvastatin 40. he has been on amlodipine. He takes Celexa 40 mg a day for mood which is stable. On March 19, the patient awoke at 8:00 a.m. feeling fine and went to dialysis at 9:00 a.m.. He completed dialysis sometime around 1300 getting home somewhere close to 1500 . He was feeling fairly well the rest of that afternoon and sometime around 1900, the patient had the onset of "dizziness". SI questioned him it seemed like he had a combination of vertiginous feelings when he stood up (felt fine when he was sitting still ) or when he moved his head from side to side. This spinning was disconcerting and did lead to some nausea and vomiting. He felt a little bit lightheaded with this but he did not faint or lose consciousness. His balance was poor. He had no weakness or numbness of the limbs, speech problems, vision changes, or confusion. He arrived to the emergency room March 20 at 0035 , with a temperature of 36.3, pulse 51 regular, respiratory rate 16 and comfortable, blood pressure 179/66 and O2 saturation percent. Neuro examination was nonfocal. He had some right-sided nystagmus CBC showed some mild anemia and Chem profile was remarkable for elevated BUN and creatinine and glucose of 167. TSH was borderline at 4 0.2. Troponin was elevated at 45. Platelet count was 112. CT scan of the head was unremarkable and chest x-ray showed cardiomegaly. This morning patient has no dizziness or lightheadedness. He is up moving around without symptoms. He feels back to baseline. Allergies Allergy/AdvReac Type Severity Reaction Status Date / Time No Known Allergies Allergy Verified 03/20/23 00:42 Home Medications Medication Instructions Recorded Confirmed Type atorvastatin 40 mg tablet 40 mg PO HS 07/31/19 03/20/23 History cholecalciferol (vitamin D3) 25 1,000 unit PO QAM 07/31/19 03/20/23 History mcg (1,000 unit) tablet (Vitamin D3) citalopram 40 mg tablet (Celexa) 40 mg PO QAM 07/31/19 03/20/23 History finasteride 5 mg tablet 5 mg PO 07/31/19 03/20/23 History aspirin 81 mg tablet,delayed 81 mg PO QA 01/06/20 03/20/23 History release fluticasone furoate 200 1 inh inhalation HS 03/12/22 03/20/23 History mcg-vilanterol 25 mcg/dose inhalation powder (Breo Ellipta) amlodipine 2.5 mg tablet 2.5 mg PO HS 03/20/23 03/20/23 History sennosides 8.6 mg-docusate sodium 1 tab-cap PO DAILY 03/20/23 03/20/23 History 50 mg tablet (Senna Plus) tamsulosin 0.4 mg capsule 0.4 mg PO DAILY 03/20/23 03/20/23 History Patient History Medical History Anxiety and depression AV fistula left wrist BPH (benign prostatic hyperplasia) CHF (congestive heart failure) Chronic anemia CKD (chronic kidney disease) stage 5, GFR less than 15 ml/min follows with Dr. Jay Diabetes mellitus, type 2 NIDDM ESRD (end stage renal disease) on dialysis M/W/F > [facility] in [place] Hyperlipidemia Hypertension Osteoarthritis PAD (peripheral artery disease) Peritoneal dialysis catheter in situ since removed Tobacco use Surgical History Cardiac murmur no cardio History of cataract surgery RT/LEFT History of cholecystectomy History of colonoscopy History of esophagogastroduodenoscopy (EGD) History of procedure for peripheral vascular disease LEFT LEG (STENT PLACED) History of tooth extraction SBO (small bowel obstruction) with surgical intervention Family History Brother Cancer Social History Smoking Status: Current every day smoker Tobacco Type: Cigarettes Age Started Using Tobacco: 16; packs per day: 1; Cigarettes Per Day: 6-8; Second Hand Exposure: No; Do You Dip or Chew Tobacco: No; Hx Alcohol Use: No Hx Substance Use: No Preferred Language: Spanish Communication Ability: Effective Claims Agent Right Of Way Required: No Beliefs That Will Affect Care: None Current Living Situation: Alone Current Living Situation Comment: caregiver that comes in current occupational status: retired 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 How many Children do You have: 1 Feels Safe at Home: Yes Assistive Devices: Walker Review of Systems Constitutional: no fever, no fatigue and no weakness Eyes: no diplopia, no eye pain and no worsening vision Ear, Nose, Mouth, Throat: no ear pain, no tinnitus, no hearing loss, no dizziness, no snoring, no hoarseness and no dysphagia Respiratory: no cough and no dyspnea Cardiovascular: no chest pain, no palpitations and no lightheadedness Gastrointestinal: no abdominal pain, no nausea and no vomiting Musculoskeletal: no back pain, no neck pain, no radicular pain, no joint pain and no myalgia Integumentary: no rash and no lesions Neurologic: + gait abnormality; no localized weakness, no generalized weakness, no tingling, no numbness, no tremor(s), no abnormal movements, no headache(s), no abnormal speech, no confusion and no memory loss Psychiatric: no depression, no irritability, no anxiety, no difficulty concentrating, no confusion and no hallucinations Endocrine: no fatigue and no flushing Hematologic / Lymphatic: no easy bleeding and no easy bruising Allergy / Immunological: no urticaria and no problem reported Exam (Neuro) Physical Exam: The patient is right-handed. The patient is awake, alert, and attentive. Speech is normal without any aphasia or dysarthria. The patient can name objects, repeat phrases, and has normal spontaneous speech. Mentation and thought processes are intact, with orientation to person, place and time, and normal fund of knowledge. Attention and concentration are normal. Mood and affect are normal and appropriate. General appearance and grooming are normal. Short and long-term memory are intact. The discs are sharp with positive venous pulsations bilaterally. There are no exudates, hemorrhages, or blood vessel changes seen. Pupils are 4 mm bilaterally and reactive to light. Extraocular eye muscles are intact without nystagmus. Visual acuity and visual bowen seem normal grossly to confrontation. There are no deficits to sensation in the face in all 3 distributions of the fifth cranial nerve bilaterally. Corneal reflexes are positive bilaterally. Facial strength and symmetry was normal bilaterally. Hearing is decreased bilaterally. Palate moves well without asymmetry. There is normal sternocleidomastoid and trapezius (shoulder shrug) strength bilaterally. Tongue is midline with good strength bilaterally. Neck has a full range of motion without discomfort. There are no cervical bruits bilaterally. There are no cranial or ocular bruits. Heart is without murmur. There is a regular rhythm and rate. Cervical, thoracic, and lumbar spine are nontender to palpation. Gait is narrow based and he limps favoring the left foot ( foot ulcer ). He is slow and cautious. Stance with eyes open is reasonable. With outstretched arms there is no drift. There are no resting, postural, or action tremors. There is no ataxia with finger to nose testing. There is good facility in the hands. No other abnormal involuntary movements are noted. Motor strength is 5/5 diffusely in the arms bilaterally including deltoids, biceps, triceps, brachioradialis, wrist flexors and extensors, charcoal kiln burner, and intrinsic hand muscles. Motor strength is 5/5 diffusely in the legs bilaterally including hip flexors, quadriceps, hamstrings, gastrocnemius, tibialis anterior, tibialis posterior, and Peroneii muscles. Toe extensors are normal and there is good bulk in the extensor digitorum brevis muscles bilaterally. The limbs have good tone without rigidity or spasticity. There is no atrophy noted in the muscles. Muscle bulk is normal, there is no tenderness to palpation, no myotonia to percussion, and no fasciculations seen. Sensory examination is intact to touch and pin throughout all 4 limbs diffusely. Reflexes are 0/4 in the biceps, triceps, brachioradialis, quadriceps, and Achilles tendons bilaterally. There is no clonus bilaterally. Toes are downgoing with plantar stimulation bilaterally. Peripheral pulses are present and of normal quality distally in all 4 limbs. There is no peripheral edema noted in the limbs. Results & Data Vital Signs (Past 12 Hours) Vital Signs Temp Pulse Pulse Resp BP BP Pulse Ox 03/20/23 07:39 36.7 C 53 L 18 168/66 H 99 03/20/23 05:25 56 L 03/20/23 05:15 03/20/23 05:15 36.5 C 57 L 18 172/72 H 98 03/20/23 05:00 55 L 03/20/23 03:18 52 L 18 129/53 L 97 03/20/23 02:45 56 L 14 03/20/23 02:37 56 L 21 03/20/23 00:56 48 L 03/20/23 00:35 36.3 C L 16 100 03/20/23 00:35 100 03/20/23 00:35 36.3 C L 51 L 16 179/66 H 100 O2 Del Method O2 Flow Rate 03/20/23 07:39 Room Air 03/20/23 05:25 03/20/23 05:15 Room Air 03/20/23 05:15 Room Air 03/20/23 05:00 03/20/23 03:18 Room Air 03/20/23 02:45 03/20/23 02:37 03/20/23 00:56 03/20/23 00:35 Room Air 03/20/23 00:35 Room Air 0 03/20/23 00:35 PG Care Time/CCT Total # of Minutes Spent Total Time Spent with Patient: Total time spent is greater than 50% in coordination of care (as documented) at patient's floor/unit and/or counseling patient: Coding Level of Care Code 63927 INT INP/OBS CARE MIN Diagnoses Dizziness R42 ESRD (end stage renal disease) on dialysis N18.6; Z99.2 Diabetes mellitus, type 2 E11.9 Time Spent (min) 75
--- NOTE | 2023-03-20 15:19 | Communication Note ---
Date of Service: March 20, 2023 Patient seen and examined at bedside. He is lying in the bed comfortably; not in distress. He denies any dizziness today. Constitutional: WD/WN, vitals as above, NAD, sitting up in bed, pleasant, conversing easily Respiratory: normal respiratory effort, lungs clear to auscultation, no wheeze, rales, rhonchi. Normal insp/exp effort, no accessory muscle use Cardiovascular: RRR, no murmur, no edema Vessels: no JVD or carotid bruit Chest: normal inspection of chest Abdomen: normal bowel sounds, soft, nontender, no hepatosplenomegaly Musculoskeletal: no cyanosis or clubbing, extremities motor strength 5/5 Skin: no rashes, warm and dry normal turgor Neurologic: PERRL, EOMI, accommodation nl, no face palsy, no dysarthria CN's II- XI intact bilaterally and moves all extremities Psychiatric: A+Ox3, euthymic affect Lymphatic: no cervical or axillary lymphadenopathy : deferred Assessment/plan Dizziness; short-lived episode. Back to baseline. Neuro evaluation completed. CT head unremarkable. MRI ordered Elevated high-sensitivity and in setting of ESRD; no delta difference. Echocardiogram with no significant change. Continue to monitor on telemetry. End-stage renal disease, on dialysis: Consult nephrology. History of diabetes: Not on any medication. A1c of 5.7. History of hyperlipidemia: Continue statin. History of nonobstructive coronary artery disease: Seems cardiac catheterization in January of 2022 showed multiple 10% to 30% irregularities. On aspirin and statin. History of benign prostatic hypertrophy: Continue his home medications. History of tobacco abuse, chronic obstructive pulmonary disease: Stable. Continue home inhalers. History of Clostridium difficile in the past. Thrombocytopenia: Platelets of 107. Needs followup. Hx of TAVR Deep venous thrombosis prophylaxis: Sequential compression devices for now.
--- NOTE | 2023-03-20 16:42 | Magnetic Resonance Report ---
MRI OF THE BRAIN WITHOUT IV CONTRAST CLINICAL HISTORY: Dizziness. COMPARISON STUDY: CT of the brain dated 03/20/2023. TECHNIQUE: MRI of the brain was performed utilizing various T1 and T2-weighted sequences in the axial , sagittal, and coronal planes. IV contrast was not administered for this examination. The examinatio n is compromised by motion artifact. FINDINGS: Brain parenchyma: There is age-related involutional change noting mild subcortical and periventricula r microangiopathic disease. There is no hemorrhage or mass effect. There is no restricted diffusion t o suggest acute ischemia. Quinn-white matter differentiation is preserved. No extra-axial fluid collec tion is seen. The cerebellar tonsils are normal in configuration. Ventricles, sulci, and cisterns: Prominent secondary to involutional change. Pituitary and sella: Unremarkable. Intracranial vasculature: Normal flow voids are maintained at the skull base. Orbits: The bony orbits are grossly intact. Orbital contents are normal in appearance noting bilatera l ocular lens implants. Sinuses and mastoids: There is trace left mastoid effusion. The right mastoid air cells on the parana le sinuses are clear. Calvarium: Unremarkable. Cervical cord: Partially visualized cervical spinal cord is normal in morphology and signal intensity . IMPRESSION: No acute intracranial abnormality. ACT 112: Negative or not required by law. Electronically signed by: Ivan Joseph M.D. 03/20/2023 4:40 PM
[2023-03-20 20:46] LABS: Appearance Urine Clear (Clear); Bacteria Urine Automated Negative (Negative); Bilirubin Urine Negative (Negative); Blood Urine Negative (Negative); Color Urine Yellow; Epithelial Cell Urine Auto 0-5 /lpf (0-5); Glucose Urine UA 1+ (Negative); Ketones Urine Negative (Negative); Leukocyte Esterase Urine Negative (Negative); Nitrite Urine Negative (Negative); RBC Urine Automated 0-4 /hpf (0-4); Specific Gravity Urine 1.012 (1.000-1.030); Urobilinogen Urine Negative (Negative); pH Urine 8.5 (4.5-7.5)
[2023-03-20 20:58] LABS: Protein Urine 2+ (Negative)
[2023-03-20] MEDS ORDERED: FINASTERIDE 5 MG TAB PO SCH (21:00)
[2023-03-20] MEDS ORDERED: ATORVASTATIN 40 MG TAB PO SCH (21:00)
[2023-03-20] MEDS ORDERED: amLODIPine BESYLATE 5 MG TAB PO SCH (21:00)
[2023-03-20] MEDS ORDERED: FLUTICASONE/VILANTEROL 200/25MCG 14 PUFFS/INHALER INH SCH (21:00)
--- NOTE | 2023-03-20 21:55 | Nephrology Consultation ---
Date of Consultation March 20, 2023 Assessment & Plan (1) Dialysis patient: for HD tomorrow per routine dialysis diet; will for now defer fluid limit daily bmp, cbc f/u neuro recs >>will start him on phoslo 12/06 whle in house with fluid limit 1.8 L for now History of Present Illness Reason for Consultation: ESRD on dialysis Requesting Physician: Dr Pineda Attending Physician: Jorge Lancaster MD History of Present Illness 78 y/o M whom I"m asked to see for dialysis needs was admitted overnight for evaluation of dizziness and generalized weakness. he dialyzes under my care at [facility]; he is adherent w/ treatments. Other PMH includes chronic diastolic HF, past C diff, aortic stenosis s/p TAVR, CAD/PVD as per records COPD, hypertension, hyperlipidemia, DM2 diet-controlled, BPH, and chronic anemia. He does also have mild cognitive impairment/forgetfulness. He lives independently w/ full day of help 3-4 days weekly and often forgets to take his meds. yesterday's OP dialysis was uneventful. but then at home he had a short episode of vertigo/dizziness w/ spinning room accompanied by yovana Parry. he tells me sx have not recurred since arrival here. neurology following. he denies f/c, falls, change in chronic balance concerns, sob, chest pain, cough, edema, abd pain, n/v/d/c. Allergies Allergy/AdvReac Type Severity Reaction Status Date / Time No Known Allergies Allergy Verified 03/20/23 00:42 Home Medications Medication Instructions Recorded Confirmed Type atorvastatin 40 mg tablet 40 mg PO 07/31/19 03/20/23 History cholecalciferol (vitamin D3) 25 1,000 unit PO QAM 07/31/19 03/20/23 History mcg (1,000 unit) tablet (Vitamin D3) citalopram 40 mg tablet (Celexa) 40 mg PO QAM 07/31/19 03/20/23 History finasteride 5 mg tablet 5 mg PO 07/31/19 03/20/23 History aspirin 81 mg tablet,delayed 81 mg PO QAM 01/06/20 03/20/23 History release fluticasone furoate 200 1 inh inhalation 03/12/22 03/20/23 History mcg-vilanterol 25 mcg/dose inhalation powder (Breo Ellipta) amlodipine 2.5 mg tablet 2.5 mg PO HS 03/20/23 03/20/23 History sennosides 8.6 mg-docusate sodium 1 tab-cap PO DAILY 03/20/23 03/20/23 History 50 mg tablet (Senna Plus) tamsulosin 0.4 mg capsule 0.4 mg PO DAILY 03/20/23 03/20/23 History Patient History Medical History Anxiety and depression AV fistula left wrist BPH (benign prostatic hyperplasia) CHF (congestive heart failure) Chronic anemia CKD (chronic kidney disease) stage 5, GFR less than 15 ml/min follows with Dr. Jay Diabetes mellitus, type 2 NIDDM ESRD (end stage renal disease) on dialysis M/W/F > [place] in [place] Hyperlipidemia Hypertension Osteoarthritis PAD (peripheral artery disease) Peritoneal dialysis catheter in situ since removed Tobacco use Surgical History Cardiac murmur no cardio History of cataract surgery RT/LEFT History of cholecystectomy History of colonoscopy History of esophagogastroduodenoscopy (EGD) History of procedure for peripheral vascular disease LEFT LEG (STENT PLACED) History of tooth extraction SBO (small bowel obstruction) with surgical intervention Family History Brother Cancer Social History Smoking Status: Current every day smoker Tobacco Type: Cigarettes Age Started Using Tobacco: 16; packs per day: 1; Cigarettes Per Day: 6-8; Second Hand Exposure: No; Do You Dip or Chew Tobacco: No; Hx Alcohol Use: No Hx Substance Use: No Preferred Language: Lao Communication Ability: Effective Protozoologist Required: No Beliefs That Will Affect Care: None Current Living Situation: Alone Current Living Situation Comment: caregiver that comes in current occupational status: retired 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 How many Children do You have: 1 Other Information That Helps Us Care for You: No Feels Safe at Home: Yes Safety Concerns: Feels Safe At This Time Assistive Devices: Walker Review of Systems Review of Systems: All systems reviewed & are unremarkable except as noted in HPI & below Physical Exam Constitutional: well developed and well nourished Eyes: EOM intact bilaterally ENMT: Ears: no external ear abnormality Nose: no external nose abnormality Mouth: + dry oral mucous membranes Neck: no nuchal rigidity Respiratory: normal respiratory effort Auscultation: + diminished lung sounds Cardiovascular: Rate/Rhythm: regular rate and regular rhythm Extremities: + AV fistula; no edema Gastrointestinal (Abdomen): Inspection/Auscultation: normal bowel sounds Percussion/Palpation: abdomen soft; abdomen nontender Musculoskeletal: Extremities: strength 5/5 throughout Skin: no rashes, warm and dry Neurologic: albarran, fluent speech, no tremor Results & Data Vital Signs (Past 12 Hours) Vital Signs Temp Pulse Pulse Resp BP Pulse Ox O2 Del Method 03/20/23 19:34 36.6 C 51 L 20 167/74 H 98 Room Air 03/20/23 16:11 56 L 03/20/23 15:14 36.5 C 53 L 18 170/54 H 100 Room Air 03/20/23 12:17 36.5 C 64 16 137/72 98 Room Air Laboratory Results 03/20/23 06:09 03/20/23 06:[address], brain mri, cxr all w/o acute process
[2023-03-21 06:59] LABS: Basophils # (auto) 0.07 K/uL (0-0.2); Basophils % (auto) 0.8 %; Eosinophils # (auto) 0.98 K/uL (0-0.50); Eosinophils % (auto) 10.9 %; Hemoglobin 13.8 g/dl (14.0-18.0); Immature Granulocytes # (auto) 0.03 K/uL (0.01-0.20); Immature Granulocytes % (auto) 0.3 %; Lymphocytes # (auto) 3.02 K/uL (1.2-3.4); Lymphocytes % (auto) 33.7 %; Mean Corpuscular Hemoglobin 32.7 pg (25.0-34.0); Mean Corpuscular Hgb Conc 32.9 g/dL (32.0-36.0); Mean Corpuscular Volume 99.5 fL (80.0-100.0); Mean Platelet Volume 11.3 fL (9.4-12.4); Monocytes # (auto) 0.88 K/uL (0.11-0.59); Monocytes % (auto) 9.8 %; Neutrophils # (auto) 3.99 K/uL (1.40-6.50); Neutrophils % (auto) 44.5 %; Platelet Count 126 K/uL (130-400); RDW Coefficient of Variation 13.2 % (11.5-14.5); RDW Standard Deviation 48.4 fL (36.4-46.3); Red Blood Count 4.22 M/uL (4.70-6.10); White Blood Count 8.97 K/ul (4.8-10.8)
[2023-03-21 07:20] LABS: BUN Creatinine Ratio 14.4 (10-20); Calcium 9.1 mg/dl (8.6-10.3); Creatinine Clr Calc Pharmacy 8.6 ml/min; Est GFR (African American) 8.7 ml/min; Est GFR (Non-African American) 7.5 ml/min; Potassium 5.5 mmol/L (3.5-5.1)
[2023-03-21] MEDS ORDERED: HEPARIN SOD (PORCINE) 1000 UNIT/ML IV ONE (07:46)
[2023-03-21] MEDS ORDERED: SODIUM CHLORIDE 0.9% 1000ML 1,000 ML IV PRN (07:46)
[2023-03-21] MEDS ORDERED: amLODIPine BESYLATE 5 MG TAB PO SCH (09:00)
--- NOTE | 2023-03-21 10:25 | Electrocardiogram Report ---
Test Reason : Blood Pressure : / mmHG Vent. Rate : 062 BPM Atrial Rate : 062 BPM P-R Int : 174 ms QRS Dur : 150 ms QT Int : 498 ms P-R-T Axes : 050 -64 -19 degrees QTc Int : 505 ms Normal sinus rhythm Right bundle branch block Left anterior fascicular block Bifascicular block Voltage criteria for left ventricular hypertrophy Abnormal ECG When compared with ECG of 20-MAR-2023 00:23, Premature atrial complexes are no longer Present Confirmed by Jono Parson ([id number]) on 03/21/2023 10:25:09 AM Referred By: REFERRED SELF Confirmed By:Mukund Parson
[2023-03-21] MEDS: CALCIUM ACETATE 667 MG CAP/TAB PO SCH ×3 (11:24→17:17)
[2023-03-21] MEDS: TAMSULOSIN HCL 0.4 MG CAP PO SCH (13:35)
[2023-03-21] MEDS: CHOLECALCIFEROL 1,000 UNITS 25 MCG TAB PO SCH (13:35)
[2023-03-21] MEDS: ASPIRIN 81 MG ECTAB PO SCH (13:36)
[2023-03-21] MEDS: HEPARIN SOD (PORCINE) 1000 UNIT/ML IV SCH ×2 (13:36→13:38)
[2023-03-21] MEDS: CITALOPRAM 40 MG TAB PO SCH (13:36)
--- NOTE | 2023-03-21 15:56 | Ultrasound Report ---
ULTRASOUND OF THE CAROTID ARTERIES CLINICAL HISTORY: Dizziness. COMPARISON STUDY: No priors. TECHNIQUE: Real-time, grayscale, and color Doppler sonography of the carotid arteries is performed. I mages are reviewed in the transverse and longitudinal planes. FINDINGS: The carotid arteries are patent bilaterally and demonstrate antegrade flow. There is [id number] atherosclerotic plaque seen in the carotid bulbs. Normal doppler arterial waveforms are seen through out. Velocity measurements are listed below. Common carotid peak systolic velocity (cm/sec): RIGHT: 108 LEFT: 62 ICA proximal peak systolic velocity (cm/sec): RIGHT: 84 LEFT: 111 ICA mid peak systolic velocity (cm/sec): RIGHT: 78 LEFT: 109 ICA distal peak systolic velocity (cm/sec): RIGHT: 93 LEFT: 104 ICA/CC peak systolic ratio: RIGHT: 0.9 LEFT: 1.8 Antegrade flow was shown in the vertebral arteries. The external carotid arteries are patent. IMPRESSION: 1. There is no sonographic evidence of hemodynamically significant stenosis in the right or left raphael tid arterial system. 2. Antegrade flow is shown in the vertebral arteries. ACT 112: Negative or not required by law. Electronically signed by: Ivan Joseph M.D. 03/21/2023 3:55 PM
--- NOTE | 2023-03-21 16:27 | Hospitalist Progress Note ---
Date of Service March 21, 2023 Assessment & Plan (1) Dizziness: Plan: Assessment/plan Dizziness; short-lived episode. Back to baseline. Neuro evaluation completed. CT head unremarkable. Brain MRI: No acute CVA Carotid ultrasound: No high-grade stenosis From uncontrolled blood pressure? Amlodipine increased from 2.5, to 5 mg daily Elevated high-sensitivity and in setting of ESRD; no delta difference. Echocardiogram with no significant change. No cardiac symptoms End-stage renal disease, on dialysis:Nephrology consulted History of diabetes: Not on any medication. A1c of 5.7. History of hyperlipidemia: Continue statin. History of nonobstructive coronary artery disease: Seems cardiac catheterization in January of 2022 showed multiple 10% to 30% irregularities. On aspirin and statin. History of benign prostatic hypertrophy: Continue his home medications. History of tobacco abuse, chronic obstructive pulmonary disease: Stable. Continue home inhalers. History of Clostridium difficile in the past. Thrombocytopenia: Platelets of 107. Needs followup. Hx of TAVR Deep venous thrombosis prophylaxis: Sequential compression devices for now. Disposition Discharge to home Follow-up with PCP in 1 Admission and Anticipated Discharge Date Admission Date: March 20, 2023 Subjective Follow-up for dizziness, etc. Seen resting in bed, sitting up, comfortable, not in distress States he feels fine overall Dizziness resolved Ambulating in the room independently with no problems Denies any other neurologic deficits no chest pain, dyspnea, palpitations, dizziness No other symptoms States he is ready for discharge today Review of Systems Review of Systems: all noted and negative except for above Physical Exam Physical Exam: General- oriented x 3, not in distress, speaks in sentences with no effort or accessory muscle use Eyes- anicteric Neck- no JVD Lungs- clear BS bilaterally, no rales/wheezes Heart- normal rate, regular rhythm; no murmurs Abdomen- normal bowel sounds, nondistended, soft, nontender Extremities- no pretibial edema, no calf tenderness Neuro- alert, oriented x 3; no gross focal neurologic deficits Skin- warm & dry Results & Data Results & Data Vital Signs (Past 12 Hours) Vital Signs Temp Pulse Pulse Pulse Resp BP BP 03/21/23 14:58 69 03/21/23 12:20 36.5 C 69 03/21/23 12:00 76 81/59 L 03/21/23 07:00 54 L 05/17/23 11:30 68 130/68 03/21/23 11:00 66 106/71 03/21/23 10:00 64 113/61 03/21/23 10:30 65 102/64 03/21/23 09:30 60 96/68 L 03/21/23 09:15 59 L 118/62 03/21/23 08:48 36.5 C 60 03/21/23 07:55 36.4 C L 53 L 17 173/72 H BP Pulse Ox O2 Del Method 03/21/23 14:58 03/21/23 12:20 142/80 H 03/21/23 12:00 03/21/23 07:00 03/21/23 11:30 03/21/23 11:00 03/21/23 10:00 03/21/23 10:30 03/21/23 09:30 03/21/23 09:15 03/21/23 08:48 03/21/23 07:55 98 Room Air all noted and reviewed including below
--- NOTE | 2023-03-21 16:31 | Discharge Summary ---
Discharge Summary Date of Service March 21, 2023 Notes For Next Care Provider Medication Changes From Visit Amlodipine increased from 2.5 to 5 mg p.o. daily Admission HPI Per Admitting Provider HISTORY OF PRESENT ILLNESS: This is an 78-year-old male with past medical history significant for end-stage renal disease, on hemodialysis; history of hypothyroidism due to renal insufficiency; history of diabetes, diet controlled; history of COPD; hypertension; peripheral vascular disease; history of aortic stenosis, status post TAVR; history of BPH; anemia of chronic disease; depressi on, presents with dizziness. The patient says he was sitting on the chair when he felt suddenly dizzy. Denies any chest pain. No spinning of the room. Denies any nausea. It seems it lasted about half an hour; when he was walking, he felt a little imbalance for some time. He says he walks with a walker. He lives alone. Daughter lives upstairs. At that time, he also had some diaphoresis. Currently he is declining any nausea or vomiting. Denies any shortness of breath. No fevers, no difficulty swallowing. No blurred visions, no earache. Has some runny nose. No sore throat. No cough. Denies any diarrhea at this time. He had dialysis yesterday. Currently in the ER, he is resting comfortably, hemodynamically stable. His heart rate is somewhat on the lower side in the 50s. Admission Exam Per Admitting Provider GENERAL: The patient is of moderate build, alert and oriented, not in acute distress. VITAL SIGNS: Temperature 36.3, pulse 52, respiratory rate 18, blood pressure 129/53, oxygen 97% on room air. HEENT: Pupils equal, round, and reactive to light. Extraocular muscles intact. No nystagmus is seen. No facial droop. Oral mucosa moist. NECK: No JVD. No neck masses. CARDIOVASCULAR: S1 and S2 heard. Ejection systolic murmur in aortic area. Regular rate and rhythm. RESPIRATORY SYSTEM: Normal AP diameter. No accessory muscle use. No wheezing or crackles. ABDOMEN: Soft, bowel sounds present, nontender, no distention. CENTRAL NERVOUS SYSTEM: Alert and oriented x3. Speech is clear. No facial droop. Obeys simple commands. Power 5/5 in the extremities. Sensation intact. No pronator drift. Coordination of movements normal. Position sense intact. EXTREMITIES: No edema, no erythema. Principal Dx & Hospital Course #1 = Principal Diagnosis (1) Dizziness: Assessment/plan Dizziness; short-lived episode. Back to baseline. Neuro evaluation completed. CT head unremarkable. Brain MRI: No acute CVA Carotid ultrasound: No high-grade stenosis From uncontrolled blood pressure? Amlodipine increased from 2.5, to 5 mg daily Elevated high-sensitivity and in setting of ESRD; no delta difference. Echocardiogram with no significant change. No cardiac symptoms End-stage renal disease, on dialysis:Nephrology consulted History of diabetes: Not on any medication. A1c of 5.7. History of hyperlipidemia: Continue statin. History of nonobstructive coronary artery disease: Seems cardiac catheterization in January of 2022 showed multiple 10% to 30% irregularities. On aspirin and statin. History of benign prostatic hypertrophy: Continue his home medications. History of tobacco abuse, chronic obstructive pulmonary disease: Stable. Continue home inhalers. History of Clostridium difficile in the past. Thrombocytopenia: Platelets of 107. Needs followup. Hx of TAVR Deep venous thrombosis prophylaxis: Sequential compression devices for now. Disposition Discharge to home Follow-up with PCP in 1 Discharge Exam General- oriented x 3, not in distress, speaks in sentences with no effort or accessory muscle use Eyes- anicteric Neck- no JVD Lungs- clear BS bilaterally, no rales/wheezes Heart- normal rate, regular rhythm; no murmurs Abdomen- normal bowel sounds, nondistended, soft, nontender Extremities- no pretibial edema, no calf tenderness Neuro- alert, oriented x 3; no gross focal neurologic deficits Skin- warm & dry Updated Medication List Medication Instructions Recorded Confirmed Type atorvastatin 40 mg tablet 40 mg PO HS 07/31/19 03/20/23 History cholecalciferol (vitamin D3) 25 1,000 unit PO QAM 07/31/19 03/20/23 History mcg (1,000 unit) tablet (Vitamin D3) citalopram 40 mg tablet (Celexa) 40 mg PO QAM 07/31/19 03/20/23 History finasteride 5 mg tablet 5 mg PO HS 07/31/19 03/20/23 History aspirin 81 mg tablet,delayed 81 mg PO QAM 01/06/20 03/20/23 History release fluticasone furoate 200 1 inh inhalation HS 03/12/22 03/20/23 History mcg-vilanterol 25 mcg/dose inhalation powder (Breo Ellipta) amlodipine 2.5 mg tablet 2.5 mg PO HS 03/20/23 03/20/23 History sennosides 8.6 mg-docusate sodium 1 tab-cap PO DAILY 03/20/23 03/20/23 History 50 mg tablet (Senna Plus) tamsulosin 0.4 mg capsule 0.4 mg PO DAILY 03/20/23 03/20/23 History amlodipine 5 mg tablet (Norvasc) 5 mg PO QAM 30 days #30 tabs 03/21/23 Rx Hospital Stay Data Consultations 03/20/23 03:09 ED Decision to Admit Stat 03/20/23 08:00 Consult Nephrology Routine Consult Neurology Routine Diagnostic Imagining Performed 03/20/23 00:22 CT head/brain wo con Stat 03/20/23 11:30 MRI Brain [MR brain wo con] Routine COMPARISON STUDY: CT of the brain dated 03/20/2023. TECHNIQUE: MRI of the brain was performed utilizing various T1 and T2-weighted sequences in the axial, sagittal, and coronal planes. IV contrast was not administered for this examination. The examination is compromised by motion artifact. FINDINGS: Brain parenchyma: There is age-related involutional change noting mild subcortical and periventricular microangiopathic disease. There is no hemorrhage or mass effect. There is no restricted diffusion to suggest acute ischemia. Quinn-white matter differentiation is preserved. No extra-axial fluid collection is seen. The cerebellar tonsils are normal in configuration. Ventricles, sulci, and cisterns: Prominent secondary to involutional change. Pituitary and sella: Unremarkable. Intracranial vasculature: Normal flow voids are maintained at the skull base. Orbits: The bony orbits are grossly intact. Orbital contents are normal in appearance noting bilateral ocular lens implants. Sinuses and mastoids: There is trace left mastoid effusion. The right mastoid air cells on the paranasal sinuses are clear. Calvarium: Unremarkable. Cervical cord: Partially visualized cervical spinal cord is normal in morphology and signal intensity. IMPRESSION: No acute intracranial abnormality. ACT 112: Negative or not required by law. 03/21/23 08:49 US carotid doppler BI Routine COMPARISON STUDY: No priors. TECHNIQUE: Real-time, grayscale, and color Doppler sonography of the carotid arteries is performed. Images are reviewed in the transverse and longitudinal planes. FINDINGS: The carotid arteries are patent bilaterally and demonstrate antegrade flow. There is [id number] atherosclerotic plaque seen in the carotid bulbs. Normal doppler arterial waveforms are seen throughout. Velocity measurements are listed below. Common carotid peak systolic velocity (cm/sec): RIGHT: 108 LEFT: 62 ICA proximal peak systolic velocity (cm/sec): RIGHT: 84 LEFT: 111 ICA mid peak systolic velocity (cm/sec): RIGHT: 78 LEFT: 109 ICA distal peak systolic velocity (cm/sec): RIGHT: 93 LEFT: 104 ICA/CC peak systolic ratio: RIGHT: 0.9 LEFT: 1.8 Antegrade flow was shown in the vertebral arteries. The external carotid arteries are patent. IMPRESSION: 1. There is no sonographic evidence of hemodynamically significant stenosis in the right or left carotid arterial system. 2. Antegrade flow is shown in the vertebral arteries. ACT 112: Negative or not required by law. Discharge Instructions Given to Patient (Per Discharging Provider) PLEASE REFER TO YOUR NEW MEDICATION LIST AND FOLLOW INSTRUCTIONS CAREFULLY. YOUR NEW MEDICATION INCLUDE: Increase amlodipine from 2.5 mg to 5 mg daily. PLEASE CALL YOUR PRIMARY CARE PHYSICIAN OR RETURN TO THE ER IF WITH WORSENING OF SYMPTOMS, INCLUDING Dizziness, lightheadedness, weakness, etc. FOLLOW UP WITH PRIMARY CARE PHYSICIAN IN 1 WEEK. THE CLINIC WILL BE CALLING YOU SOON FOR THE APPOINTMENT SCHEDULED. Total Time Total Time Spent Total Time Spent (In Minutes): >30 minutes
--- NOTE | 2023-03-21 16:57 | Dialysis Progress Note ---
Date of Service March 21, 2023 Assessment & Plan (1) Dialysis patient: Plan: for HD today per routine dialysis diet daily bmp, cbc f/u neuro recs >>will start him on phoslo / whle in house with fluid limit 1.8 L for now next HD on 03/23 as IP or OP depending on needs Admission and Anticipated Discharge Date Admission Date: March 20, 2023 Subjective seen on HD this AM; denies further vertigo sx; feeling/doing well; tolerating po, no sob Review of Systems Review of Systems: All systems reviewed & are unremarkable except as noted in Subjective Physical Exam Constitutional: well developed and well nourished Eyes: EOM intact bilaterally ENMT: Ears: no external ear abnormality Nose: no external nose abnormality Mouth: + dry oral mucous membranes Neck: no nuchal rigidity Respiratory: normal respiratory effort Auscultation: + diminished lung sounds Cardiovascular: Rate/Rhythm: regular rate and regular rhythm Extremities: + AV fistula; no edema Gastrointestinal (Abdomen): Inspection/Auscultation: normal bowel sounds Percussion/Palpation: abdomen soft; abdomen nontender Musculoskeletal: Extremities: strength 5/5 throughout Skin: no rashes, warm and dry Results & Data Vital Signs (Past 12 Hours) Vital Signs Temp Pulse Pulse Pulse Resp BP BP 03/21/23 14:58 69 03/21/23 12:20 36.5 C 69 03/21/23 12:00 76 81/59 L 03/21/23 07:00 54 L 03/21/23 11:30 68 130/68 03/21/23 11:00 66 106/71 03/21/23 10:00 64 113/61 03/21/23 10:30 65 102/64 03/21/23 09:30 60 96/68 L 03/21/23 09:15 59 L 118/62 03/21/23 08:48 36.5 C 60 03/21/23 07:55 36.4 C L 53 L 17 173/72 H BP Pulse Ox O2 Del Method 03/21/23 14:58 03/21/23 12:20 142/80 H 03/21/23 12:00 03/21/23 07:00 03/21/23 11:30 03/21/23 11:00 03/21/23 10:00 03/21/23 10:30 03/21/23 09:30 03/21/23 09:15 03/21/23 08:48 03/21/23 07:55 98 Room Air Laboratory Results 03/21/23 05:22 03/21/23 05:22
== END 2023-03-21 18:49 | disposition home or self-care (01) | DRG 291 ==
LOC: ED 00:14 → 2S 04:41 → SUATTDRO 04:41 → 2S 04:58

== ENCOUNTER 2024-04-17 22:52 | Inpatient (IN) ==
--- NOTE | 2024-04-17 23:14 | Emergency Department Note ---
Impression & Plan Hyperglycemia, Fever ED Provider Note NAME: FERNANDA FLORES AGE: 79 SEX: Male INFORMANT: Patient ED PROVIDER(S): Arpit Lehman MD CHIEF COMPLAINT: Hyperglycemia PLAN: Disposition: Admitted Outpatient prescription management: none Referral: None MEDICAL DECISION MAKING: Patient presented to the emergency department because of hyperglycemia. Workup was initiated. He was found to be borderline febrile. Cultures and lactate were ordered. He was given Tylenol. The patient had a bifascicular block on ECG. Minor changes inferiorly compared to prior ECG. Cardiac troponin ordered. He did note a mild cough chest x-ray ordered as well. Due to dialysis status initial fluids were held. RLL pna on cxr. Biofire negative. Leukocytosis new on CBC compared to prior. Patient given broad spectrum antibiotics. Consultation was made with Dr. Rian Whaley, [facility] hospitalist service. Case discussed and diagnostics reviewed. Patient was evaluated in ER for further management. Care/management discussed with: manager engagement Level of care consideration(s): After review of the information above and other included data, I feel the patient requires escalation of care to admission. Triage Nursing notes: reviewed and agree them. Vital Signs: reviewed and remarkable for fever Additional History obtained from: none Chronic Medical/Social Conditions affecting care: End-stage renal disease on dialysis, diabetes Prior/ Outside/ External records reviewed: 2 prior ED record visits were reviewed along with diagnostic findings in the EMR. Hyperglycemia noted. Remainder of labs were unremarkable Differential Diagnosis: Infection, dehydration, metabolic abnormality, hypo/hyperglycemia, electrolyte disturbance, anemia, hypoxia, cardiac sources, intracerebral event, toxicologic, neurologic, as well as other pathologies. Diagnostics, independently interpreted by me: ECG: Twelve-lead ECG reveals a sinus rhythm with a first-degree block at 83 bpm. Right bundle branch block. Left anterior fascicular block. LVH with repolarization present. Possible septal infarct. When compared to 14 April 2024 T wave inversions that were seen inferiorly are no longer present. Cardiac Monitoring: Cardiac monitoring ordered by me: The patient was placed on continuous cardiac monitoring and observed. It revealed a sinus rhythm at 87 beats per minute without ectopy or evidence of dysrhythmia. Medical decision rules: none Imaging studies: CXR with RLL PNA. I refer you to the EMR for further details. HPI: 79 year old Male arrives for evaluation of hyperglycemia. This is the third visit this month for the patient due to complaints about fluctuating blood sugar. Patient also notes developing feelings of being hot and cold today. He felt shaky. Blood sugars have been fluctuating. Reviewing the prior visits the patient has had blood sugars at home upwards of 500. Patient does note a cough. He denies any sick contacts. He is on dialysis Sunday. He states he still makes some urine and has not had any major changes. He does note an itchy rash on his right shoulder that has been present for quite some time. Pt denies LOC, headache, visual changes, neck pain, chest pain, breathing difficulties, nausea, vomiting, abdominal pain, back pain, diarrhea, urinary symptoms, numbness, weakness, lymphadenopathy, new rash, or other complaints. PAST MEDICAL HISTORY: See Below, end-stage renal disease, dialysis, diabetes PAST SURGICAL HISTORY: See Below, AV fistula SOCIAL HISTORY: See Below, retired HOME MEDICATIONS: See Below ALLERGIES: See Below VITALS: See Below PHYSICAL EXAMINATION: GENERAL: Awake, alert, [id number]-pmeakmard, in no distress HENT: Normocephalic, atraumatic. Oropharynx unremarkable. EYES: Normal conjunctiva. Sclera non-icteric. NECK: Inspection normal. Non-tender. Supple. No nuchal rigidity. FROM. No masses. RESPIRATORY: Clear to auscultation. No wheezes. No rales. Normal respiratory effort. CARDIAC: Normal rate. Normal rhythm. No murmurs. No rubs. Extremities warm and well perfused. Pulses equal. No JVD. AV fistula left upper extremity with palpable thrill. GI: Soft, non-distended. No tenderness to palpation. No rebound or guarding. No masses. RECTAL: Deferred. MUSCULOSKELETAL: Atraumatic. Chest examination reveals no tenderness. The back is symmetrical on inspection without obvious abnormality. There is no CVA tenderness to palpation. No joint edema. LOWER EXTREMITIES: Calves are equal size bilaterally and non-tender. No edema. Chronic venous discoloration. NEURO: Normal sensorium. No sensory or motor deficits noted. SKIN: Secondaries Gratian noted on the upper back and right shoulder without obvious rash. No petechia or purpura. No other rash or jaundice noted. PROCEDURES: none CRITICAL CARE: none OBSERVATION NOTE: none Past Med/Surg History Problem List (Updated 04/18/24 @ 16:21 by Daquan Carolina DO) Gram-positive bacteremia Severe sepsis Fever (Acute) Hyperglycemia (Acute) Hyperglycemia due to type 2 diabetes mellitus (Acute) Hyperglycemia (Acute) Bacteremia due to Enterococcus Encephalopathy AMS (altered mental status) (Acute) Elevated troponin I level (Acute) Dizziness (Acute) Acute hyponatremia (Acute) Diabetic foot ulcer Dizziness (Acute) Abnormal ECG (Acute) CKD (chronic kidney disease) (Acute) Tobacco abuse (Acute) Dialysis AV fistula malfunction Encounter for pre-operative examination Hypertension (Chronic) Encounter for pre-operative examination CKD (chronic kidney disease), stage IV Angina pectoris Gastritis Hypoxia CHF (congestive heart failure) SOB (shortness of breath) DVT prophylaxis Acute respiratory failure with hypoxia CHF (congestive heart failure) (Acute) Renal failure (Acute) Hypoxemia (Acute) SOB (shortness of breath) (Acute) Epigastric abdominal pain (Acute) SBO (small bowel obstruction) Abdominal pain (Acute) SBO (small bowel obstruction) (Acute) Chest pain Chest pain (Acute) Elevated troponin I level (Acute) Abnormal EKG (Acute) Elevated lipase (Acute) Severe calcific aortic valve stenosis Coffee ground emesis Ambulatory dysfunction (Acute) Generalized weakness (Acute) Weakness (Acute) Acute dehydration (Acute) Diarrhea (Acute) Dialysis patient (Acute) Clostridioides difficile diarrhea Peritoneal dialysis catheter in situ since removed Tobacco use ESRD (end stage renal disease) on dialysis (Acute) M/W/F > [facility] in [place] CKD (chronic kidney disease) stage 5, GFR less than 15 ml/min follows with Dr. Jay Hyperlipidemia BPH (benign prostatic hyperplasia) Diabetes mellitus, type 2 NIDDM PAD (peripheral artery disease) Tobacco abuse Chronic anemia Medical History CHF (congestive heart failure) AV fistula left wrist Osteoarthritis Anxiety and depression Hypertension Surgical History SBO (small bowel obstruction) with surgical intervention History of esophagogastroduodenoscopy (EGD) History of colonoscopy History of cholecystectomy History of tooth extraction History of cataract surgery RT/LEFT History of procedure for peripheral vascular disease LEFT LEG (STENT PLACED) Cardiac murmur no cardio Family History Brother Cancer Social History Smoking Status: Current every day smoker Tobacco Type: Cigarettes Age Started Using Tobacco: 16; packs per day: 0.5; Cigarettes Per Day: 10; Second Hand Exposure: No; Do You Dip or Chew Tobacco: No; Hx Alcohol Use: No Hx Substance Use: No Preferred Language: Belarusian Communication Ability: Effective Visual Impairment: No Limitations Hearing Ability: Hard of Hearing Machine Feller Required: No Beliefs That Will Affect Care: None marital status: Single Current Living Situation: Alone Current Living Situation Comment: daughter helps with cooking and cleaning current occupational status: retired 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 Feels Safe at Home: Yes Diet: regular during the past year weight has: remained stable Assistive Devices: Walker Allergies Allergies Allergy/AdvReac Type Severity Reaction Status Date / Time No Known Allergies Allergy Verified 04/09/24 23:35 Home Meds Home Medications Medication Instructions Recorded Confirmed atorvastatin 40 mg tablet 40 mg PO [facility] 07/31/19 04/18/24 cholecalciferol (vitamin D3) 25 1,000 unit PO [facility] 07/31/19 04/18/24 mcg (1,000 unit) tablet (Vitamin D3) finasteride 5 mg tablet 5 mg PO HS 07/31/19 04/18/24 aspirin 81 mg tablet,delayed 81 mg PO [facility] 01/06/20 04/18/24 release tamsulosin 0.4 mg capsule 0.4 mg PO HS 03/20/23 04/18/24 albuterol sulfate 90 mcg/actuation 2 puff inhalation Q6H PRN Wheezing 04/09/24 04/18/24 aerosol inhaler amlodipine 5 mg tablet 5 mg PO QAM 04/09/24 04/18/24 calcitriol 0.25 mcg capsule 0 mcg PO DAILY 04/09/24 04/18/24 citalopram 40 mg tablet 40 mg PO QAM 04/09/24 04/18/24 fluticasone furoate 200 0 inh inhalation DAILY 04/09/24 04/18/24 mcg-vilanterol 25 mcg/dose inhalation powder (Breo Ellipta) ondansetron HCl 4 mg tablet 4 mg PO Q8H PRN NAUSEA/VOMITING 04/09/24 04/18/24 pantoprazole 20 mg tablet,delayed 20 mg PO QAM 04/09/24 04/18/24 release sevelamer carbonate 800 mg tablet 2,400 mg PO TIDM 04/09/24 04/18/24 sucroferric oxyhydroxide 500 mg 500 mg PO TIDM 04/09/24 04/18/24 chewable tablet (Velphoro) vitamin B complex and vitamin C 1 cap PO DAILY 04/09/24 04/18/24 no.20-folic acid 1 mg capsule sitagliptin phosphate 100 mg 100 mg PO DAILY 04/18/24 04/18/24 tablet (Januvia) Results & Data (ED) Vital Signs Vital Signs - 24 hr 04/17/24 22:57 04/17/24 22:58 04/17/24 22:58 Temperature 37.8 C H Temperature Source Oral Pulse Rate 85 85 Pulse Rate [Apical] 85 Pulse Rhythm Regular Pulse Rhythm [Apical] Regular Pulse Strength Normal Pulse Strength [Apical] Normal Respiratory Rate 16 16 Respiratory Effort / Characteristics Non-Labored Spontaneous Non-Labored Spontaneous Respiratory Depth Normal Normal Respiratory Pattern Regular Regular Blood Pressure 190/89 H Blood Pressure [Right Arm] 190/89 H Blood Pressure Mean 122 Blood Pressure Mean [Right Arm] 122 Blood Pressure Position Sitting Pulse Oximetry 96 97 Oxygen Delivery Method Room Air Room Air Sepsis Recent Fever Within 48 Hours Yes Sepsis New/Unexplained Change in Mental Status No Sepsis Action Taken by Nursing No Action Required 04/17/24 23:11 Temperature Temperature Source Pulse Rate 87 Pulse Rate [Apical] Pulse Rhythm Regular Pulse Rhythm [Apical] Pulse Strength Pulse Strength [Apical] Respiratory Rate 18 Respiratory Effort / Characteristics Respiratory Depth Respiratory Pattern Blood Pressure Blood Pressure [Right Arm] Blood Pressure Mean Blood Pressure Mean [Right Arm] Blood Pressure Position Pulse Oximetry 97 Oxygen Delivery Method Room Air Sepsis Recent Fever Within 48 Hours Sepsis New/Unexplained Change in Mental Status Sepsis Action Taken by Nursing Laboratory Data 04/17/24 23:06 04/17/24 23:06 Lab Results 04/17/24 04/17/24 04/17/24 Range/Units 23:01 23:06 23:14 WBC 13.36 H (4.8-10.8) K/ul RBC 3.61 L (4.70-6.10) M/uL Hgb 11.5 L (14.0-18.0) g/dl Hct 36.7 L (42.0-52.0) % MCV 101.7 H (80.0-100.0) fL MCH 31.9 (25.0-34.0) pg MCHC 31.3 L (32.0-36.0) g/dL RDW Std Deviation 55.6 H (36.4-46.3) fL RDW Coeff of Danny 15.2 H (11.5-14.5) % Plt Count 209 (130-400) K/uL MPV 10.1 (9.4-12.4) fL Immature Gran % (Auto) 0.4 % Neut % (Auto) 87.4 % Lymph % (Auto) 3.7 % [place] % (Auto) 6.1 % Eos % (Auto) 2.2 % Baso % (Auto) 0.2 % Neut # (Auto) 11.66 H (1.40-6.50) K/uL Lymph # (Auto) 0.50 L (1.20-3.40) K/uL [place] # (Auto) 0.81 H (0.11-0.59) K/uL Eos # (Auto) 0.30 (0.00-0.50) K/uL Baso # (Auto) 0.03 (0.00-0.20) K/uL Immature Gran # (Auto) 0.06 (0.01-0.20) K/uL Absolute Nucleated RBC 0.02 (0.00-0.12) K/uL Nucleated RBC % (auto) 0.1 % Sodium 134 L (136-145) mmol/L Potassium 4.0 (3.5-5.1) mmol/L Chloride 93 L (98-107) mmol/L Carbon Dioxide 27 (21-32) mmol/L Anion Gap 14 H (3-11) BUN 50 H (6-23) mg/dl Creatinine 5.15 H* (0.6-1.4) mg/dl Est Cr Clr Drug Dosing 11.2 ml/min Est GFR ( Amer) 11.2 ml/min Est GFR (Non-Af Amer) 9.7 ml/min BUN/Creatinine Ratio 9.7 L (10-20) Glucose 250 H (70-99(Fasting)) mg/dl POC Glucose 248 H (70-99) mg/dl Estimat Average Glucose 137 mg/dl Hemoglobin A1c 6.4 H (4.5-5.6) % Lactate 2.7 H* (0.4-2.0) mmol/L Calcium 9.9 (8.6-10.3) mg/dl Magnesium 1.9 (1.7-2.4) mg/dl Total Bilirubin 0.6 (0.2-1.0) mg/dl AST 18 (13-39) U/L ALT 14 (7-52) U/L Alkaline Phosphatase 83 (34-104) U/L Troponin I High Sens 52.2 H* (0-20) pg/ml Total Protein 7.4 (6.0-8.3) gm/dl Albumin 4.1 (3.4-5.0) gm/dl Globulin 3.3 (2.5-4.0) gm/dl Albumin/Globulin Ratio 1.2 (0.9-2) Procalcitonin 0.69 H (0-0.5) ng/ml TSH 1.580 (0.300-4.500) uIu/ml Adenovirus (PCR) Not Detected (NotDetected) B. pertussis DNA (PCR) Not Detected (NotDetected) B.parapertussis DNA PCR Not Detected (NotDetected) C. pneumoniae DNA (PCR) Not Detected (NotDetected) Coronavirus OC43 (PCR) Not Detected (NotDetected) Coronavirus HKU1 (PCR) Not Detected (NotDetected) Coronavirus 229E (PCR) Not Detected (NotDetected) SARS-CoV-2 (PCR) Not Detected (NotDetected) Coronavirus NL63 (PCR) Not Detected (NotDetected) Human Metapneumovir PCR Not Detected (NotDetected) Influenza Type A (PCR) Not Detected (NotDetected) Influenza Type B (PCR) Not Detected (NotDetected) M. pneumoniae (PCR) Not Detected (NotDetected) Parainfluenza 1 (PCR) Not Detected (NotDetected) Parainfluenza 2 (PCR) Not Detected (NotDetected) Parainfluenza 3 (PCR) Not Detected (NotDetected) Parainfluenza 4 (PCR) Not Detected (NotDetected) RSV (PCR) Not Detected (NotDetected) Entero/Rhino (PCR) Not Detected (NotDetected) Streptococcus sp PCR DETECTED A (NotDetected) Bld Cult ID Panel PCR See PCR Comment (NotDetected) Administered Medications Aspirin (Aspirin 81 Mg Ectab) 81 mg PO QAM [facility] Stop: 05/18/24 08:59 Last Admin: 04/18/24 14:14 Dose: 81 mg Documented By: BS Calcitriol (Calcitriol 0.25 Mcg Capsule) 0.25 mcg PO DAILY [facility] Stop: 05/18/24 08:59 Last Admin: 04/18/24 14:14 Dose: 0.25 mcg Documented By: BS Citalopram Hydrobromide (Citalopram 40 Mg Tab) 40 mg PO QAM [facility] Stop: 05/18/24 08:59 Last Admin: 04/18/24 14:14 Dose: 40 mg Documented By: LETTY Fluticasone/Vilanterol (Fluticasone/Vilanterol 200/25mcg 14 Puffs/Inhaler) 1 puffs INH DAILY [facility] Stop: 05/18/24 08:59 Last Admin: 04/18/24 14:15 Dose: Not Given Documented By: LETTY Heparin Sodium (Porcine) (Heparin Sod 5,000 Unit/0.5 Ml Vial) 5,000 units SQ Q8 [facility] Stop: 05/18/24 05:59 Last Admin: 04/18/24 14:14 Dose: 5,000 units Documented By: Admin: 04/18/24 06:51 Dose: 5,000 units Documented By: GERARDO Cefepime HCl 500 mg/ Syringe 5 mls @ 5 mls/min IV Q24H [facility]; Protocol Stop: 05/02/24 16:59 Last Admin: 04/18/24 17:50 Dose: 5 mls/min Documented By: LETTY Insulin Aspart (Insulin Aspart Per Unit Charge) 0 units SC ACHS [facility] Stop: 05/18/24 01:50 Last Admin: 04/18/24 17:47 Dose: Not Given Documented By: Admin: 04/18/24 13:46 Dose: Not Given Documented By: Admin: 04/18/24 11:16 Dose: Not Given Documented By: NRB Co-signed By: AJ Admin: 04/18/24 02:21 Dose: 5 units Documented By: SONALI Co-signed By: MYLES Pantoprazole Sodium (Pantoprazole 40 Mg Tab) 40 mg PO QAM RANDY Stop: 05/18/24 08:59 Last Admin: 04/18/24 14:14 Dose: 40 mg Documented By: LETTY Sevelamer Carbonate (Sevelamer Carbonate 800 Mg Tab) 2,400 mg PO TIDM RANDY Stop: 05/18/24 07:59 Last Admin: 04/18/24 17:50 Dose: 2,400 mg Documented By: Admin: 04/18/24 14:15 Dose: Not Given Documented By: Admin: 04/18/24 14:14 Dose: 2,400 mg Documented By: LETTY Vitamin B Complex/Folic Acid (Nephrocaps) 1 cap PO DAILY ARNDY Stop: 05/18/24 08:59 Last Admin: 04/18/24 14:14 Dose: 1 cap Documented By: LETTY Discontinued Medications Acetaminophen (Acetaminophen 500 Mg Tab) 1,000 mg PO NOW STA Stop: 04/17/24 23:15 Last Admin: 04/17/24 23:18 Dose: 1,000 mg Documented By: AMAURY Amlodipine Besylate (Amlodipine Besylate 5 Mg Tab) 5 mg PO NOW ONE Stop: 04/18/24 00:46 Last Admin: 04/18/24 02:25 Dose: Not Given Documented By: SONALI Sodium Chloride (Nss) 500 mls @ 999 mls/hr IV .Q31M ONE Stop: 04/17/24 23:59 Last Infusion: 04/18/24 00:14 Dose: Infused Documented By: Admin: 04/17/24 23:36 Dose: 999 mls/hr Documented By: AMAURY Sodium Chloride (Nss) 1,000 mls @ 125 mls/hr IV .Q8H RANDY Stop: 05/17/24 23:29 Last Infusion: 04/18/24 04:20 Dose: 0 mls/hr Documented By: Admin: 04/17/24 23:36 Dose: 125 mls/hr Documented By: AMAURY Cefepime HCl (Maxipime) 2,000 mg in 20 mls @ 5 mls/min IV NOW STA; Protocol Stop: 04/17/24 23:32 Last Admin: 04/17/24 23:36 Dose: 5 mls/min Documented By: AMAURY Vancomycin HCl 1,500 mg/ (Sodium Chloride) 530 mls @ 200 mls/hr IV NOW ONE Stop: 04/18/24 02:31 Last Admin: 04/18/24 01:13 Dose: Not Given Documented By: AMAURY Doxycycline Hyclate 100 mg/ (Dextrose) 100 mls @ 50 mls/hr IV NOW STA Stop: 04/18/24 01:52 Last Infusion: 04/18/24 04:10 Dose: Infused Documented By: Admin: 04/18/24 00:49 Dose: 50 mls/hr Documented By: AMAURY Albumin Human (Albumin 25%) 25 gm in 100 mls @ 50 mls/hr IV ONE ONE Stop: 04/18/24 02:44 Last Infusion: 04/18/24 04:10 Dose: Infused Documented By: Admin: 04/18/24 01:02 Dose: 50 mls/hr Documented By: AMAURY Daptomycin 425 mg/ Syringe 8.5 mls @ 4.25 mls/min IV Q48H [facility]; Protocol Stop: 04/20/24 02:29 Last Admin: 04/18/24 02:29 Dose: 4.25 mls/min Documented By: SONALI Insulin Glargine (Lantus Per Unit Charge) 5 units SQ NOW STA Stop: 04/18/24 01:52 Last Admin: 04/18/24 02:21 Dose: 5 units Documented By: SONALI Co-signed By: MYLES Imaging Data Radiologist's Impression: Chest X-Ray 04/17/24 23:06 XR chest 1V portable HISTORY: 79 years-old Male weakness acute weakness COMPARISON: 08/25/2023 TECHNIQUE: AP view of the chest FINDINGS: Cardiac silhouette is enlarged. Aortic valvular endograft. Atherosclerosis of the aorta. Mild chronic interstitial coarsening. No pneumothorax, large pleural effusion or lobar airspace consolidation. Bones appear grossly intact. IMPRESSION: Cardiomegaly with chronic interstitial coarsening ACT 112: Negative or not required by law. The above report was generated using voice recognition software. It may contain grammatical, syntax or spelling errors. Electronically signed by: Malik Cooney M.D. 04/18/2024 7:02 AM Discharge Plan Visit Data Chief Complaint: Hyperglycemia Stated Complaint: Hyperglycemia, Shaky ED Provider: Arpit Lehman Discharge Problem: Hyperglycemia, Fever Discharge Instructions Interventions: ED Discharge Assessment Last Done: 04/18/24 02:07
[2024-04-17] MEDS: ACETAMINOPHEN 500 MG TAB PO STA (23:18)
[2024-04-17] MEDS: SODIUM CHLORIDE 0.9% 500 ML IV ONE (23:36)
[2024-04-17] MEDS: SODIUM CHLORIDE 0.9% 1,000 ML IV SCH (23:36)
[2024-04-17] MEDS: CEFEPIME 2,000 MG/20 ML VIAL IV STA (23:36)
[2024-04-17 23:51] LABS: Basophils # (auto) 0.03 K/uL (0.00-0.20); Basophils % (auto) 0.2 %; Eosinophils % (auto) 2.2 %; Hematocrit (blood only) 36.7 % (42.0-52.0); Hemoglobin 11.5 g/dl (14.0-18.0); Immature Granulocytes # (auto) 0.06 K/uL (0.01-0.20); Immature Granulocytes % (auto) 0.4 %; Lymphocytes % (auto) 3.7 %; Mean Corpuscular Hemoglobin 31.9 pg (25.0-34.0); Mean Corpuscular Hgb Conc 31.3 g/dL (32.0-36.0); Mean Corpuscular Volume 101.7 fL (80.0-100.0); Mean Platelet Volume 10.1 fL (9.4-12.4); Monocytes # (auto) 0.81 K/uL (0.11-0.59); Monocytes % (auto) 6.1 %; Neutrophils # (auto) 11.66 K/uL (1.40-6.50); Neutrophils % (auto) 87.4 %; Nucleated RBC # (auto) 0.02 K/uL (0.00-0.12); Nucleated RBC % (auto) 0.1 %; Platelet Count 209 K/uL (130-400); RDW Coefficient of Variation 15.2 % (11.5-14.5); RDW Standard Deviation 55.6 fL (36.4-46.3); Red Blood Count 3.61 M/uL (4.70-6.10); White Blood Count 13.36 K/ul (4.8-10.8)
[2024-04-17] MEDS ORDERED: VANCOMYCIN CONSULT ACTIVE PRN (23:53)
[2024-04-17 23:56] LABS: Albumin Globulin Ratio 1.2 (0.9-2); Albumin Level 4.1 gm/dl (3.4-5.0); BUN Creatinine Ratio 9.7 (10-20); Bilirubin,Total 0.6 mg/dl (0.2-1.0); Calcium 9.9 mg/dl (8.6-10.3); Creatinine Clr Calc Pharmacy 11.2 ml/min; Est GFR (African American) 11.2 ml/min; Est GFR (Non-African American) 9.7 ml/min; Globulin 3.3 gm/dl (2.5-4.0); Magnesium 1.9 mg/dl (1.7-2.4); Total Protein 7.4 gm/dl (6.0-8.3); Troponin I High Sensitivity 52.2 pg/ml (0-20)
--- NOTE | 2024-04-18 00:23 | History & Physical Report ---
Date of Service April 18, 2024 Assessment & Plan (1) Severe sepsis: Plan: SIRS plus lactic acidosis History enterococcal bacteremia as per records History of status post TAVR Troponin elevation secondary to illness chronic diastolic heart failure (EF 60-65%, TTE 2022), patient euvolemic to dry CAD/PVD as per records COPD, baseline lung symptoms hypertension, stable hyperlipidemia, on statin Rx DM2 diet-controlled, patient hyperglycemic the last few weeks at home, well- controlled as of recent hemoglobin A1c of 5.7 last year ESRD on HD chronic anemia, hemoglobin at baseline ongoing tobacco abuse Medical telemetry CS, Daptomycin, Cefepime Monitor lactic acid response to albumin. (Guideline recommended 30 cc/kg IBW fluid bolus administration over 3 hours precluded by ESRD on HD) Further management contingent on initial workup results Nephrology consult Re: dialysis management Basal insulin, ISS BG goal 1 10-1 40, carb count coverage, update hemoglobin A1c Nicotine patch as needed PT OT eval DVT prophylaxis. Heparin subcu Full code Patient daughter requesting updates from providers. Krystal José Miguel, contact #[phone].. Text document was generated using [employer] voice recognition software. It may contain grammatical or spelling errors. Kindly contact undersigned for clarification of any documentation item in question. History of Present Illness Chief Complaint: High sugar Primary Care Provider: Laron Peña MD History obtained from patient and records. Medical history is significant for chronic diastolic heart failure (EF 60-65%, TTE 2022), status post TAVR, CAD/PVD as per records, COPD, hypertension, hyperlipidemia, DM2 diet-controlled, ESRD on HD, BPH, chronic hyponatremia, chronic anemia (baseline hemoglobin 11-12 ), hx C. difficile colitis, history Enterococcus bacteremia, anxiety/mood disorder, ongoing tobacco abuse Last confinement August 2023 for Enterococcus bacteremia of unclear source or origin. No obvious valvular vegetations on TTE. ID recommended 6 weeks course IV daptomycin. Unable to follow-up with ID outpatient. Patient seen at the ER on 2 occasions last week for high sugars at home. Patient discharged home on both occasions. Patient daughter had reached out to PCP about restarting Januvia. Patient felt shaky at home last night. Blood sugars 300-500. Usual cough, SOB symptoms. No headache, no chest pain. No abdominal pain or diarrhea No new wounds as per patient. Cefepime administered at the ER. MEDICAL HISTORY: As above. SURGERIES: He has had a cholecystectomy, but ocular procedures, ex lap, enterolysis, TAVR, vascular procedures FAMILY HISTORY: Diabetes. PERSONAL AND SOCIAL HISTORY: Half pack daily. No EtOH intake, Retired from [employer] Allergies Allergy/AdvReac Type Severity Reaction Status Date / Time No Known Allergies Allergy Verified 04/09/24 23:35 Home Medications Medication Instructions Recorded Confirmed Type atorvastatin 40 mg tablet 40 mg PO QAM 07/31/19 04/09/24 History cholecalciferol (vitamin D3) 25 1,000 unit PO QAM 07/31/19 04/09/24 History mcg (1,000 unit) tablet (Vitamin D3) finasteride 5 mg tablet 5 mg PO HS 07/31/19 04/09/24 History aspirin 81 mg tablet,delayed 81 mg PO QAM 01/06/20 04/09/24 History release tamsulosin 0.4 mg capsule 0.4 mg PO HS 03/20/23 04/09/24 History albuterol sulfate 90 mcg/actuation 2 puff inhalation Q6H PRN Wheezing 04/09/24 04/09/24 History aerosol inhaler amlodipine 5 mg tablet 5 mg PO QAM 04/09/24 04/09/24 History calcitriol 0.25 mcg capsule 0.25 mcg PO DAILY 04/09/24 04/09/24 History citalopram 40 mg tablet 40 mg PO QAM 04/09/24 04/09/24 History fluticasone furoate 200 1 inh inhalation DAILY 04/09/24 04/09/24 History mcg-vilanterol 25 mcg/dose inhalation powder (Breo Ellipta) ondansetron HCl 4 mg tablet 4 mg PO Q8H PRN NAUSEA/VOMITING 04/09/24 04/09/24 History pantoprazole 20 mg tablet,delayed 20 mg PO QAM 04/09/24 04/09/24 History release sevelamer carbonate 800 mg tablet 2,400 mg PO TIDM 04/09/24 04/09/24 History sucroferric oxyhydroxide 500 mg 500 mg PO TIDM 04/09/24 04/09/24 History chewable tablet (Velphoro) vitamin B complex and vitamin C 1 cap PO DAILY 04/09/24 04/09/24 History no.20-folic acid 1 mg capsule Past Med/Surg History Problem List (Updated 04/18/24 @ 05:44 by Rian Whaley MD) Severe sepsis Fever (Acute) Hyperglycemia (Acute) Hyperglycemia due to type 2 diabetes mellitus (Acute) Hyperglycemia (Acute) Bacteremia due to Enterococcus Encephalopathy AMS (altered mental status) (Acute) Elevated troponin I level (Acute) Dizziness (Acute) Acute hyponatremia (Acute) Diabetic foot ulcer Dizziness (Acute) Abnormal ECG (Acute) CKD (chronic kidney disease) (Acute) Tobacco abuse (Acute) Dialysis AV fistula malfunction Encounter for pre-operative examination Hypertension (Chronic) Encounter for pre-operative examination CKD (chronic kidney disease), stage IV Angina pectoris Gastritis Hypoxia CHF (congestive heart failure) SOB (shortness of breath) DVT prophylaxis Acute respiratory failure with hypoxia CHF (congestive heart failure) (Acute) Renal failure (Acute) Hypoxemia (Acute) SOB (shortness of breath) (Acute) Epigastric abdominal pain (Acute) SBO (small bowel obstruction) Abdominal pain (Acute) SBO (small bowel obstruction) (Acute) Chest pain Chest pain (Acute) Elevated troponin I level (Acute) Abnormal EKG (Acute) Elevated lipase (Acute) Severe calcific aortic valve stenosis Coffee ground emesis Ambulatory dysfunction (Acute) Generalized weakness (Acute) Weakness (Acute) Acute dehydration (Acute) Diarrhea (Acute) Dialysis patient (Acute) Clostridioides difficile diarrhea Peritoneal dialysis catheter in situ since removed Tobacco use ESRD (end stage renal disease) on dialysis (Acute) [facility] [place] CKD (chronic kidney disease) stage 5, GFR less than 15 ml/min follows with Dr. Jay Hyperlipidemia BPH (benign prostatic hyperplasia) Diabetes mellitus, type 2 NIDDM PAD (peripheral artery disease) Tobacco abuse Chronic anemia Medical History CHF (congestive heart failure) AV fistula left wrist Osteoarthritis Anxiety and depression Hypertension Surgical History SBO (small bowel obstruction) with surgical intervention History of esophagogastroduodenoscopy (EGD) History of colonoscopy History of cholecystectomy History of tooth extraction History of cataract surgery RT/LEFT History of procedure for peripheral vascular disease LEFT LEG (STENT PLACED) Cardiac murmur no cardio Family History Brother Cancer Social History Smoking Status: Current every day smoker Tobacco Type: Cigarettes Age Started Using Tobacco: 16; packs per day: 0.5; Cigarettes Per Day: 10; Second Hand Exposure: No; Do You Dip or Chew Tobacco: No; Hx Alcohol Use: No Hx Substance Use: No Preferred Language: Bulgarian Communication Ability: Effective Visual Impairment: No Limitations Hearing Ability: Hard of Hearing Manager Income Tax Required: No Beliefs That Will Affect Care: None marital status: Single Current Living Situation: Alone Current Living Situation Comment: daughter helps with cooking and cleaning current occupational status: retired 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 Feels Safe at Home: Yes Diet: regular during the past year weight has: remained stable Assistive Devices: Walker Review of Systems Review of Systems: As per HPI, all other systems reviewed and negative Physical Exam Physical Exam: GENERAL: Comfortable, slightly hard of hearing, pleasant, no respiratory distress SKIN: Pallor, warm HEENT: Pale palpebral conjunctivae, no ptosis, dry buccal mucosa NECK : Supple, no tenderness CHEST : Decreased breath sounds, occasional expiratory wheezes, no tenderness HEART : RRR, no obvious murmurs ABDOMEN: Some distention, no tenderness EXTREMITIES : No LE swelling/tenderness, no other conspicuous deformities noted NEUROLOGIC : Oriented to place,, no facial asymmetry, slightly hard of hearing,, gait and stance not assessed Results & Data Results & Data Vital Signs (Past 12 Hours) Vital Signs Temp Pulse Pulse Resp BP BP Pulse Ox 04/17/24 23:11 87 18 97 04/17/24 22:58 85 16 190/89 H 97 04/17/24 22:58 37.8 C H 85 16 190/89 H 96 04/17/24 22:57 85 O2 Del Method 04/17/24 23:11 Room Air 04/17/24 22:58 Room Air 04/17/24 22:58 Room Air 04/17/24 22:57 Laboratory Results Laboratory Results WBC 13.36 K/ul (4.8-10.8) H 04/17/24 23:06 RBC 3.61 M/uL (4.70-6.10) L 04/17/24 23:06 Hgb 11.5 g/dl (14.0-18.0) L 04/17/24 23:06 Hct 36.7 % (42.0-52.0) L 04/17/24 23:06 MCV 101.7 fL (80.0-100.0) H 04/17/24 23:06 MCH 31.9 pg (25.0-34.0) 04/17/24 23:06 MCHC 31.3 g/dL (32.0-36.0) L 04/17/24 23:06 RDW Std Deviation 55.6 fL (36.4-46.3) H 04/17/24 23:06 RDW Coeff of Danny 15.2 % (11.5-14.5) H 04/17/24 23:06 Plt Count 209 K/uL (130-400) 04/17/24 23:06 MPV 10.1 fL (9.4-12.4) 04/17/24 23:06 Immature Gran % (Auto) 0.4 % 04/17/24 23:06 Neut % (Auto) 87.4 % 04/17/24 23:06 Lymph % (Auto) 3.7 % 04/17/24 23:06 [place] % (Auto) 6.1 % 04/17/24 23:06 Eos % (Auto) 2.2 % 04/17/24 23:06 Baso % (Auto) 0.2 % 04/17/24 23:06 Neut # (Auto) 11.66 K/uL (1.40-6.50) H 04/17/24 23:06 Lymph # (Auto) 0.50 K/uL (1.20-3.40) L 04/17/24 23:06 [place] # (Auto) 0.81 K/uL (0.11-0.59) H 04/17/24 23:06 Eos # (Auto) 0.30 K/uL (0.00-0.50) 04/17/24 23:06 Baso # (Auto) 0.03 K/uL (0.00-0.20) 04/17/24 23:06 Immature Gran # (Auto) 0.06 K/uL (0.01-0.20) 04/17/24 23:06 Absolute Nucleated RBC 0.02 K/uL (0.00-0.12) 04/17/24 23:06 Nucleated RBC % (auto) 0.1 % 04/17/24 23:06 Sodium 134 mmol/L (136-145) L 04/17/24 23:06 Potassium 4.0 mmol/L (3.5-5.1) 04/17/24 23:06 Chloride 93 mmol/L (98-107) L 04/17/24 23:06 Carbon Dioxide 27 mmol/L (21-32) 04/17/24 23:06 Anion Gap 14 (3-11) H 04/17/24 23:06 BUN 50 mg/dl (6-23) H 04/17/24 23:06 Creatinine 5.15 mg/dl (0.6-1.4) H* 04/17/24 23:06 Est Cr Clr Drug Dosing 11.2 ml/min 04/17/24 23:06 Est GFR ( Amer) 11.2 ml/min 04/17/24 23:06 Est GFR (Non-Af Amer) 9.7 ml/min 04/17/24 23:06 BUN/Creatinine Ratio 9.7 (10-20) L 04/17/24 23:06 Glucose 250 mg/dl (70-99(Fasting)) H 04/17/24 23:06 POC Glucose 248 mg/dl (70-99) H 04/17/24 23:01 Lactate 2.7 mmol/L (0.4-2.0) H* 04/17/24 23:06 Calcium 9.9 mg/dl (8.6-10.3) 04/17/24 23:06 Magnesium 1.9 mg/dl (1.7-2.4) 04/17/24 23:06 Total Bilirubin 0.6 mg/dl (0.2-1.0) 04/17/24 23:06 AST 18 U/L (13-39) 04/17/24 23:06 ALT 14 U/L (7-52) 04/17/24 23:06 Alkaline Phosphatase 83 U/L (34-104) 04/17/24 23:06 Troponin I High Sens 52.2 pg/ml (0-20) H* 04/17/24 23:06 Total Protein 7.4 gm/dl (6.0-8.3) 04/17/24 23:06 Albumin 4.1 gm/dl (3.4-5.0) 04/17/24 23:06 Globulin 3.3 gm/dl (2.5-4.0) 04/17/24 23:06 Albumin/Globulin Ratio 1.2 (0.9-2) 04/17/24 23:06 Diagnostic Findings Chest x-ray as per my interpretation cardiomegaly EKG as per my interpretation :Rate 85, NSR, LAD, LAFB, RBB, LVH, T wave inversion inferior leads
[2024-04-18] MEDS: DOXYCYCLINE HYCLATE 100 MG in DEXTROSE 5% MINI-B 100 ML IV STA (00:49)
[2024-04-18 00:54] LABS: Thyroid Stimulating Hormone 1.58 uIu/ml (0.300-4.500)
[2024-04-18] MEDS: ALBUMIN 25% 25 GM/100 ML VIAL IV ONE (01:02)
[2024-04-18] MEDS: VANCOMYCIN HCL 1,500 MG in SODIUM CHLORIDE 0.9% 500 ML IV ONE (01:13)
[2024-04-18] MEDS ORDERED: GLUCAGON FOR INJ 1 MG VIAL SQ PRN (01:51)
[2024-04-18] MEDS ORDERED: GLUCOSE 10 TAB/TUBE PO PRN (01:51)
[2024-04-18] MEDS ORDERED: CARBOHYDRATES FOR HYPOGLYCEMIA PO PRN (01:51)
[2024-04-18] MEDS ORDERED: DEXTROSE 50% 50 ML SYRINGE IV PRN (01:51)
[2024-04-18] MEDS ORDERED: GLUCOSE 40% GEL 15 GM TUBE PO PRN (01:51)
[2024-04-18 02:11] LABS: Adenovirus PCR Not Detected (NotDetected); Bordetella parapertussis PCR Not Detected (NotDetected); Bordetella pertussis PCR Not Detected (NotDetected); Chlamydia pneumoniae PCR Not Detected (NotDetected); Coronavirus 229E PCR Not Detected (NotDetected); Coronavirus CoV-2 (COVID19)PCR Not Detected (NotDetected); Coronavirus HKU1 PCR Not Detected (NotDetected); Coronavirus NL63 PCR Not Detected (NotDetected); Coronavirus OC43PCR Not Detected (NotDetected); Human Metapneumovirus PCR Not Detected (NotDetected); Influenza A PCR Not Detected (NotDetected); Influenza B PCR Not Detected (NotDetected); Mycoplasma pneumoniae PCR Not Detected (NotDetected); Parainfluenza Virus 1 PCR Not Detected (NotDetected); Parainfluenza Virus 2 PCR Not Detected (NotDetected); Parainfluenza Virus 3 PCR Not Detected (NotDetected); Parainfluenza Virus 4 PCR Not Detected (NotDetected); Respiratory Syncytial VirusPCR Not Detected (NotDetected); Rhinovirus/Enterovirus PCR Not Detected (NotDetected)
[2024-04-18] MEDS: LANTUS PER UNIT CHARGE SQ STA (02:21)
[2024-04-18] MEDS: INSULIN ASPART PER UNIT CHARGE SC SCH (02:21)
[2024-04-18] MEDS: amLODIPine BESYLATE 5 MG TAB PO ONE (02:25)
[2024-04-18] MEDS: DAPTOmycin 425 MG in SYRINGE 0 ML IV SCH (02:29)
[2024-04-18] MEDS: HEPARIN SOD 5,000 UNIT/0.5 ML VIAL SQ SCH (06:51)
[2024-04-18 07:03] LABS: Estimated Average Glucose 137 mg/dl; Hemoglobin A1C 6.4 % (4.5-5.6)
--- NOTE | 2024-04-18 07:03 | XRay Report ---
XR chest 1V portable HISTORY: 79 years-old Male weakness acute weakness COMPARISON: 08/25/2023 TECHNIQUE: AP view of the chest FINDINGS: Cardiac silhouette is enlarged. Aortic valvular endograft. Atherosclerosis of the aorta. Mild chronic interstitial coarsening. No pneumothorax, large pleural effusion or lobar airspace consolidation. Domingo lara appear grossly intact. IMPRESSION: Cardiomegaly with chronic interstitial coarsening ACT 112: Negative or not required by law. The above report was generated using voice recognition software. It may contain grammatical, syntax o r spelling errors. Electronically signed by: Malik Cooney M.D. 04/18/2024 7:02 AM
--- NOTE | 2024-04-18 13:12 | Electrocardiogram Report ---
Test Reason : Blood Pressure : / mmHG Vent. Rate : 083 BPM Atrial Rate : 083 BPM P-R Int : 260 ms QRS Dur : 148 ms QT Int : 422 ms P-R-T Axes : 037 -67 071 degrees QTc Int : 495 ms Sinus rhythm with 1st degree A-V block Right bundle branch block Left anterior fascicular block Bifascicular block Left ventricular hypertrophy with repolarization abnormality Abnormal ECG Confirmed by Jono Parson ([id number]) on 04/18/2024 1:11:55 PM Referred By: REFERRED SELF Confirmed By:Mukund Parson
--- NOTE | 2024-04-18 13:48 | Hospitalist Progress Note ---
Date of Service April 18, 2024 Assessment & Plan (1) C. difficile diarrhea: (2) Severe sepsis: (3) Hyperglycemia due to type 2 diabetes mellitus: (4) ESRD (end stage renal disease) on dialysis: Plan Patient with recurrent hypoglycemia suspect possibly in the setting of C. diff icile colitis. Patient's explosive diarrhea and watery diarrhea is the only objective source of infection at this time. Patient has a history of previous C. difficile infection. Raising concerns that he now has a recurrent infection. No other objective data to indicate bacterial infection elsewhere. Discontinue IV cefepime and vancomycin Start oral vancomycin Check BioFire stool and C. difficile cultures Continue hemodialysis per nephrology recommendations and guidance Continue to monitor glucose and adjust insulin pending glucose readings, acute infection can cause significant alterations in glucose homeostasis Monitor laboratory studies Admission and Anticipated Discharge Date Admission Date: April 18, 2024 Subjective Patient with explosive diarrhea this morning, reportedly at least 6 watery stools at hemodialysis. Patient reports having some diarrhea at home as well prior to coming to the ED. He cannot recall anything different in his diet or how has been taking his insulin to explain his hyperglycemia Physical Exam Physical Exam: Constitutional: Alert, somewhat frail HEENT: Mucous membranes moist. Lungs: Clear to auscultation, decreased, no wheezes rales or rhonchi CV: S1-S2, regular Abdomen: Soft, nontender, nondistended Extremities: No significant edema, large calluses on both great toes with thick onychomycotic nails. No evidence of cellulitis or bacterial infection Neuro: No focal deficits Psych: Cooperative, normal mood Results & Data Results & Data Vital Signs (Past 12 Hours) Vital Signs Temp Pulse Pulse Pulse Resp BP BP 04/18/24 12:00 53 L 117/53 L 04/18/24 11:00 54 L 142/65 H 04/18/24 10:30 52 L 133/58 L 04/18/24 10:00 54 L 146/53 H 04/18/24 09:30 56 L 115/56 L 04/18/24 09:10 37.4 C 65 04/18/24 07:07 63 04/18/24 04:00 75 16 131/63 04/18/24 04:00 04/18/24 02:35 80 15 128/62 Pulse Ox Pulse Ox O2 Del Method O2 Del Method 04/18/24 12:00 04/18/24 11:00 04/18/24 10:30 04/18/24 10:00 04/18/24 09:30 04/18/24 09:10 04/18/24 07:07 04/18/24 04:00 96 Room Air 04/18/24 04:00 96 Room Air 04/18/24 02:35 96 Room Air Diagnostic Findings Reviewed imaging, laboratory and diagnostic studies. Pertinent findings as below. Cultures negative to date Check stool BioFire Check C. difficile
[2024-04-18] MEDS: PANTOprazole 40 MG TAB PO SCH (14:14)
[2024-04-18] MEDS: CITALOPRAM 40 MG TAB PO SCH (14:14)
[2024-04-18] MEDS: SEVELAMER CARBONATE 800 MG TAB PO SCH (14:14)
[2024-04-18] MEDS: ASPIRIN 81 MG ECTAB PO SCH (14:14)
[2024-04-18] MEDS: CALCITRIOL 0.25 MCG CAPSULE PO SCH (14:14)
[2024-04-18] MEDS: NEPHROCAPS PO SCH (14:14)
[2024-04-18] MEDS: FLUTICASONE/VILANTEROL 200/25MCG 14 PUFFS/INHALER INH SCH (14:15)
[2024-04-18 14:56] LABS: Adenovirus F 40/41 PCR Not Detected (NotDetected); Astrovirus PCR Not Detected (NotDetected); Campylobacter PCR Not Detected (NotDetected); Cryptosporidium PCR Not Detected (NotDetected); Cyclospora cayetanensis PCR Not Detected (NotDetected); Entamoeba histolytica PCR Not Detected (NotDetected); Enteroaggregative E.coli(EAEC) Not Detected (NotDetected); Enteropathogenic E.coli (EPEC) Not Detected (NotDetected); Enterotoxigenic E.coli (ETEC) Not Detected (NotDetected); Giardia lamblia PCR Not Detected (NotDetected); Norovirus GI/GII PCR Not Detected (NotDetected); Plesiomonas shigelloides PCR Not Detected (NotDetected); Rotavirus A PCR Not Detected (NotDetected); Salmonella PCR Not Detected (NotDetected); Sapovirus PCR Not Detected (NotDetected); Shiga-like Toxin E.coli (STEC) Not Detected (NotDetected); Shigella/Enteroinvasive E.coli Not Detected (NotDetected); Vibrio cholerae PCR Not Detected (NotDetected); Vibrio species PCR Not Detected (NotDetected); Yersinia enterocolitica PCR Not Detected (NotDetected)
--- NOTE | 2024-04-18 15:27 | Nephrology Consultation ---
Date of Consultation April 18, 2024 Assessment & Plan (1) ESRD (end stage renal disease) on dialysis: he had dialysis earlier today. tolerated fine. was having some diarrhea which shortened the treatment time. we took out 2 kilo off. electrolytes were reasonable pre dialysis. No e/o major volume overload although did have Some pulm congestion on CXR. Current Admission is for possible Infection although not clear the source. Did have some diarrhea and is getting tretament for C diff. next HD on sunday if still inpt History of Present Illness Reason for Consultation: ESRD on dialysis Attending Physician: Daquan Carolina DO History of Present Illness 79/M with ESRD---MWF , chronic diastolic heart failure (EF 60-65%, TTE 2022), status post TAVR, CAD/PVD as per records, COPD, hypertension, hyperlipidemia, DM2 diet-controlled, , hx C. difficile colitis, history Enterococcus bacteremia, anxiety/mood disorder, ongoing tobacco abuse. Last Admission was in August 2023 for Enterococcus bacteremia of unclear source or origin. No obvious valvular vegetations on TTE. ID recommended 6 weeks course IV daptomycin. recently Patient seen at the ER on 2 occasions last week for high sugars at home. Patient discharged home on both occasions. was feeling shaky and weak at home. Patient felt shaky at home last night. Usual cough, SOB symptoms.No headache, no chest pain.No abdominal pain. No new wounds as per patient. He had dialysis and BP is currently fine. Admission if for somewhat vague reason--high glucose, possible infection , Diarrhea etc. 2 kilo removed with dialysis earlier. ROS--12 Systems reviewed otherwise. Physical Exam Physical Exam: GENERAL: Comfortable, slightly hard of hearing, pleasant, no respiratory distress SKIN: Pallor, warm HEENT: Pale palpebral conjunctivae, no ptosis, dry buccal mucosa NECK : Supple, no tenderness CHEST : Decreased breath sounds, occasional expiratory wheezes, no tenderness HEART : RRR, no obvious murmurs ABDOMEN: Some distention, no tenderness EXTREMITIES : No LE swelling/tenderness, no other conspicuous deformities noted NEUROLOGIC : Oriented to place,, no facial asymmetry, slightly hard of hearing,, gait and stance not assessed Allergies Allergy/AdvReac Type Severity Reaction Status Date / Time No Known Allergies Allergy Verified 04/09/24 23:35 Home Medications Medication Instructions Recorded Confirmed Type atorvastatin 40 mg tablet 40 mg PO QAM 07/31/19 04/18/24 History cholecalciferol (vitamin D3) 25 1,000 unit PO QAM 07/31/19 04/18/24 History mcg (1,000 unit) tablet (Vitamin D3) finasteride 5 mg tablet 5 mg PO HS 07/31/19 04/18/24 History aspirin 81 mg tablet,delayed 81 mg PO QAM 01/06/20 04/18/24 History release tamsulosin 0.4 mg capsule 0.4 mg PO HS 03/20/23 04/18/24 History albuterol sulfate 90 mcg/actuation 2 puff inhalation Q6H PRN Wheezing 04/09/24 04/18/24 History aerosol inhaler amlodipine 5 mg tablet 5 mg PO QAM 04/09/24 04/18/24 History calcitriol 0.25 mcg capsule 0 mcg PO DAILY 04/09/24 04/18/24 History citalopram 40 mg tablet 40 mg PO QAM 04/09/24 04/18/24 History fluticasone furoate 200 0 inh inhalation DAILY 04/09/24 04/18/24 History mcg-vilanterol 25 mcg/dose inhalation powder (Breo Ellipta) ondansetron HCl 4 mg tablet 4 mg PO Q8H PRN NAUSEA/VOMITING 04/09/24 04/18/24 History pantoprazole 20 mg tablet,delayed 20 mg PO QAM 04/09/24 04/18/24 History release sevelamer carbonate 800 mg tablet 2,400 mg PO TIDM 04/09/24 04/18/24 History sucroferric oxyhydroxide 500 mg 500 mg PO TIDM 04/09/24 04/18/24 History chewable tablet (Velphoro) vitamin B complex and vitamin C 1 cap PO DAILY 04/09/24 04/18/24 History no.20-folic acid 1 mg capsule sitagliptin phosphate 100 mg 100 mg PO DAILY 04/18/24 04/18/24 History tablet (Januvia) Patient History Medical History CHF (congestive heart failure) AV fistula left wrist Osteoarthritis Anxiety and depression Hypertension Surgical History SBO (small bowel obstruction) with surgical intervention History of esophagogastroduodenoscopy (EGD) History of colonoscopy History of cholecystectomy History of tooth extraction History of cataract surgery RT/LEFT History of procedure for peripheral vascular disease LEFT LEG (STENT PLACED) Cardiac murmur no cardio Family History Brother Cancer Social History Smoking Status: Current every day smoker Tobacco Type: Cigarettes Age Started Using Tobacco: 16; packs per day: 0.5; Cigarettes Per Day: 10; Second Hand Exposure: No; Do You Dip or Chew Tobacco: No; Hx Alcohol Use: No Hx Substance Use: No Preferred Language: Hebrew Communication Ability: Effective Visual Impairment: No Limitations Hearing Ability: Hard of Hearing [employer] Executive Director Required: No Beliefs That Will Affect Care: None marital status: Single Current Living Situation: Alone Current Living Situation Comment: daughter helps with cooking and cleaning current occupational status: 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 Feels Safe at Home: Yes Diet: regular during the past year weight has: remained stable Assistive Devices: Walker Results & Data Vital Signs (Past 12 Hours) Vital Signs Temp Pulse Pulse Pulse Resp BP BP 04/18/24 14:00 56 L 16 141/68 H 04/18/24 13:00 37.2 C 62 141/56 H 04/18/24 12:30 68 118/56 L 04/18/24 12:00 53 L 117/53 L 04/18/24 11:00 54 L 142/65 H 04/18/24 10:30 52 L 133/58 L 04/18/24 10:00 54 L 146/53 H 04/18/24 09:30 56 L 115/56 L 04/18/24 09:10 37.4 C 65 04/18/24 07:07 63 04/18/24 04:00 75 16 131/63 04/18/24 04:00 Pulse Ox Pulse Ox O2 Del Method O2 Del Method 04/18/24 14:00 94 Room Air 04/18/24 13:00 04/18/24 12:30 04/18/24 12:00 04/18/24 11:00 04/18/24 10:30 04/18/24 10:00 04/18/24 09:30 04/18/24 09:10 04/18/24 07:07 04/18/24 04:00 96 Room Air 04/18/24 04:00 96 Room Air Laboratory Results Reviewed Diagnostic Findings reviewed
[2024-04-18 15:56] LABS: A calco-baum cmplx NotReported Not Detected (NotDetected); Bact fragilis Not Reported Not Detected (NotDetected); Blood Culture Id Panel See PCR Comment (NotDetected); C auris Not Reported Not Detected (NotDetected); Calbicans Not Reported Not Detected (NotDetected); Candida glabrata Not Reported Not Detected (NotDetected); Candida krusei Not Reported Not Detected (NotDetected); Cneoformans/gatti Not Reported Not Detected (NotDetected); Cparapsilosis Not Reported Not Detected (NotDetected); E cloacae compx Not Reported Not Detected (NotDetected); Efaecalis Not Reported Not Detected (NotDetected); Efaecium Not Reported Not Detected (NotDetected); Enterobacterales Not Reported Not Detected (NotDetected); Escherichia coli Not Reported Not Detected (NotDetected); H influenzae Not Reported Not Detected (NotDetected); K aerogenes Not Reported Not Detected (NotDetected); Koxytoca Not Reported Not Detected (NotDetected); Kpneumoniae grp Not Reported Not Detected (NotDetected); Lmonocyt Not Reported Not Detected (NotDetected); N meningitidis Not Reported Not Detected (NotDetected); P aeruginosa Not Reported Not Detected (NotDetected); Proteus spp Not Reported Not Detected (NotDetected); Salmonella spp Not Reported Not Detected (NotDetected); Smarcescens Not Reported Not Detected (NotDetected); Staph lugdunensis Not Reported Not Detected (NotDetected); Staph spp. Not Reported Not Detected (NotDetected); Staphaureus Not Reported Not Detected (NotDetected); Staphepi Not Reported Not Detected (NotDetected); Stenmaltophilia Not Reported Not Detected (NotDetected); Strep agal(GrpB) Not Reported Not Detected (NotDetected); Strep pneum Not Reported Not Detected (NotDetected); Strep pyog (GrpA) Not Reported Not Detected (NotDetected); Strep spp Not Reported DETECTED (NotDetected)
[2024-04-18 16:08] LABS: Streptococcus spp DETECTED (NotDetected)
--- NOTE | 2024-04-18 17:26 | CT Scan Report ---
CT abd pelvis wo con CLINICAL HISTORY: Bacteremia TECHNIQUE: Helical axial images of the abdomen and pelvis were obtained. Automated dose lowering tech niques and/or adjustment according to patient size were utilized for this exam. This exam was perfor med without intravenous contrast. COMPARISON: Comparison is made to CT chest 08/25/2023 FINDINGS: Lower chest: For findings above the diaphragm, please see CT chest performed same day. Liver: Unremarkable. No focal lesions are seen. Gallbladder and biliary tree: Patient is status post cholecystectomy. Physiologic prominence of the b iliary ducts is noted. Pancreas: Mildly prominent pancreatic duct is noted without significant atrophy. Spleen: Unremarkable. Adrenals: Unremarkable. Kidneys and ureters: There is a 19 mm left renal cyst. Nonobstructive stones are seen in the kidneys. Renal parenchyma is atrophic bilaterally. Subcentimeter hyperdense lesion on the right is too small to characterize but favored to represent proteinaceous/hemorrhagic cyst. Bladder: Limited evaluation due to underdistention. Reproductive organs: Unremarkable. Bowel: The appendix is normal. Lymph nodes Retroperitoneal: Unremarkable. Pelvic: Unremarkable. Mesenteric: Unremarkable. Peritoneum: Normal. Vessels: Extensive atherosclerotic calcifications are seen. Small bilateral common iliac aneurysms ar e seen measuring up to 19 mm on the left. Abdominal wall: Unremarkable. Bones: Degenerative changes in the visualized spine. IMPRESSION: 1. No acute abnormalities to explain bacteremia. 2. Bilateral nephrolithiasis with bilateral renal lesions favored to represent cysts including prote inaceous/hemorrhagic cyst. 3. Additional findings as above. ACT 112: Negative or not required by law. Electronically signed by: Brett Garcia M.D. 04/18/2024 5:24 PM
[2024-04-18] MEDS: CEFEPIME 500 MG in SYRINGE 0 ML IV SCH (17:50)
[2024-04-18] MEDS: VANCOMYCIN HCL 125 MG/2.5ML SOLN PO SCH (19:07)
[2024-04-18] MEDS: CHERRY SYRUP 5 ML UDP PO SCH (19:07)
--- NOTE | 2024-04-18 19:59 | CT Scan Report ---
CT chest diagnostic wo con CLINICAL HISTORY: Bacteremia TECHNIQUE: Multidetector row helical CT of the chest was performed. Coronal and sagittal reformations were obtained. Automated dose lowering techniques and/or adjustment according to patient size were u tilized for this exam. CT DOSE: 701.84 mGy.cm Comparison: Prior chest radiographs 04/17/2024 FINDINGS: Lungs and pleura: Minimal atelectasis is seen. Mild emphysema. Heart and pericardium: Aortic valvular calcifications are seen. Mitral annular calcifications noted. Vessels: The pulmonary trunk is enlarged measuring 37 mm. Moderate atherosclerotic disease is seen. Mediastinum and ochoa: Subcentimeter lymph nodes are seen. Chest wall and lower neck: Unremarkable. Abdomen: Patient is status post cholecystectomy. Bones: Degenerative changes in the thoracic spine. IMPRESSION: No evidence of pneumonia or other infectious process in this patient with bacteremia. Mild emphysema and pulmonary hypertension as above. ACT 112: Negative or not required by law. Electronically signed by: Brett Garcia M.D. 04/18/2024 7:57 PM
[2024-04-18] MEDS: TAMSULOSIN HCL 0.4 MG CAP PO SCH (21:35)
[2024-04-18] MEDS: FINASTERIDE 5 MG TAB PO SCH (21:35)
[2024-04-18] MEDS ORDERED: CEFEPIME 500 MG in SYRINGE 0 ML IV SCH (22:00)
--- OUTSIDE RECORDS SUMMARY | 2024-04-19 00:27 | External Medical Summary | Summary of Care ---
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 Name Role Phone Unavailable Primary Care Provider Unavailabl e Reason for Visit * Reason Onset Date Comments Advice 04/04/2024 Encounter Details Date Type Department Care Team (Late st Contact Info) Description 04/04/2024 Telephone NephRina carcamo [address] [facility] [place] [address] Helen Horta MD [address] [place] [address] Advice Allergies No known active allergiesdocumented as of this encounter (statuses as of 04/15/2024) Medications Medication Sig Dispensed Refills Start Date End Date Status aspirin 81 MG chewable tabletIndications: Type 2 diabetes mellitus with hemoglobin A1c goal of less than 7.5% ([facility]) One chewable by mouth once a day with food 100 Tab 1 05/28/2017 Active Calcitriol 0.25 MCG Oral Capsule (Rocaltrol) Take 1 Capsule by mouth in the morning. Active Nephrocaps 1 MG Oral CapsuleIndications :ESRD (end stage renal disease) ([facility]) Take by mouth 1 Capsule in the morning. 90 Capsule 1 06/22/2022 Active OneTouch Delica Lancets 33GIndications:Typ e 2 DM with CKD stage 4 and hypertension ([facility]) TESTING ONCE A DAY. E 11.9 100 Each 3 07/18/2022 Active Soluble Fiber/Probiotics Oral Tablet ChewableIndication s:Diarrhea, unspecified type Take by mouth 1 Tablet in the morning. 90 Tablet 1 08/22/2022 Active Fluticasone Furoate-Vilanterol 200-25 MCG/ACT Inhalation Aerosol Powder Breath Activated (BREO ellipta)Indication s:Chronic obstructive pulmonary disease (HCC) INHALE 1 PUFF BY MOUTH IN THE MORNING 60 Each 5 02/19/2023 Active Albuterol Sulfate HFA 108 (90 Base) MCG/ACT Inhalation Aerosol Solution INHALE 2 PUFFS BY MOUTH EVERY 6 HOURS NEEDED FOR WHEEZING 54 g 3 07/03/2023 Active OneTouch Verio In Vitro Strip (Glucose Blood)Indications: Type 2 diabetes mellitus with end-stage renal disease (HCC) USE ONCE DAILY E11.9 100 Strip 3 08/06/2023 Active Finasteride 5 MG Oral Tablet (Proscar)Indicatio ns:Hypertrophy of prostate without urinary obstruction TAKE 1 TABLET BY MOUTH EVERY DAY 90 Tablet 3 08/06/2023 Active Tamsulosin HCl 0.4 MG Oral Capsule (Flomax)Indication s:Hypertrophy of prostate without urinary obstruction TAKE 1 CAPSULE BY MOUTH EVERY DAY 90 Capsule 3 08/06/2023 Active amLODIPine Besylate 5 MG Oral Tablet (Norvasc)Indicatio ns:Primary hypertension TAKE 1 TABLET BY MOUTH EVERY DAY IN THE MORNING 90 Tablet 3 08/06/2023 Active DAPTOmycin IV IV (AMBULATORY) Administer 500 mg intravenously once a day on Sunday, Sunday, and Sunday only. Patient is receiving daptomycin 500 mg on Sunday and Sunday postdialysis; then on 750 mg on Sunday. Active Ondansetron HCl 4 MG Oral TabletIndications: Epigastric pain Take 1 Tablet by mouth every 6 hours as needed for Nausea. 30 Tablet 10/16/2023 Active Sevelamer Carbonate 800 MG Oral Tablet (Renvela) TAKE 3 TABLET BY MOUTH THREE TIMES A DAY WITH MEALS AND 2 TABLET TWICE A DAY WITH SNACKS 10/19/2023 Active Velphoro 500 MG Oral Tablet Chewable (Sucroferric Oxyhydroxide) 1 tablet three times daily with meals 10/19/2023 Active Citalopram Hydrobromide 40 MG Oral Tablet (CeleXA)Indication s:Depression with anxiety TAKE 1 TABLET BY MOUTH EVERY DAY 90 Tablet 1 01/31/2024 Active Atorvastatin Calcium 40 MG Oral Tablet (Lipitor)Indicatio ns:Dyslipidemia, goal LDL below 160 TAKE ONE PILL BY MOUTH AT BEDTIME 90 Tablet 1 01/31/2024 Active Vitamin D3 25 MCG (1000 UT) Oral Capsule (Cholecalciferol)I ndications:Vitamin D deficiency Take 1 Capsule by mouth in the morning. 90 Capsule 3 02/19/2024 Active Pantoprazole Sodium 20 MG Oral Tablet Delayed Release (Protonix)Indicati ons:Epigastric pain Take 1 Tablet by mouth in the morning. 90 Tablet 1 02/19/2024 Active documented as of this encounter (statuses as of 04/15/2024) Active Problems Problem Noted Date Diagnosed Date Tobacco use 02/03/2022 Aortic stenosis 02/03/2022 BPH with obstruction/lower urinary tract symptom s 02/03/2022 ESRD (end stage renal disease) 02/03/2022 Diabetic retinopathy of righ t eye associated with type 2 diabetes mellitus 07/20/2021 CKD (chronic kidney disease) stage 5, GFR less than 15 ml/min 01/06/2020 Hypertensive kidney disease with end-stage renal disease 07/02/2019 Type 2 diabetes mellitus with end-stage renal di sease 07/02/2019 Type 2 diabetes mellitus with peripheral vascula r disease 06/25/2019 Peripheral vascular disease 03/28/2019 Chronic obstructive pulmonary disease 03/08/2018 Anemia of chronic disease 03/27/2016 Depression with anxiety 09/16/2014 Primary hypertension Type 2 diabetes mellitus wit h hemoglobin A1c goal of less than 7.5% Overview: ICD-10 update of inactive term HLD (hyperlipidemia) Overview: ICD-10 update of inactive term Hyperparathyroidism due to renal insufficiency Right renal atrophy Peritoneal dialysis catheter in place documented as of this encounter (statuses as of 04/15/2024) Resolved Problems Problem Noted Date Diagnosed Date Resolved Date C. 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 01/01/2018 07/30/2018 Atherosclerosis of [place] of left leg with ulceration of other part of foot 01/01/2018 02/02/2020 Kidney disease, chronic, sta ge IV (GFR 15-29 ml/min) 01/01/2018 10/18/2018 Kidney disease, chronic, sta ge III (GFR 30-59 ml/min) 07/19/2015 01/01/2018 Overview: Per CKD protocol #1 Type 2 diabetes mellitus wit h hemoglobin A1c goal of less than 7.0% 06/18/2015 Overview: ICD-10 update of inactive term BMI 26.0-26.9,adult 02/02/20 Benign hypertension with CKD (chronic kidney disease) stage III 01/01/2018 Type 2 DM with CKD stage 3 and hypertension 01/01/2018 Benign hypertension with CKD (chronic kidney disease) stage IV 07/02/2019 Type 2 DM with CKD stage 4 and hypertension 07/02/2019 documented as of this encounter (statuses as of 04/15/2024) Immunizations Name Administration Dates Next Due Hepatitis B, 20+ yrs 08/17/2020,04/13/20 20,03/16/2020,02/16 Pneumococcal Conjugate Vacc, 13 Valent (Prevnar) 02/26/2020 Pneumococcal Polysaccharide PPV23 (Pneumovax) 04/22/2020 Seasonal Influenza, Trivalen t, High Dose, No Preserve, IM 10/05/2020,09/05/2020 documented as of this encounter Social History Tobacco Use Types Packs/Day Years Used Date Smoking Tobacco: Every Day Cigarettes 0.5 63.2 Started: 1963 Pipe Smokeless Tobacco: Never Comments:Currently smoking 1 /2 pack/day was smoking 1 pack/day - Quit use of pipe - Started smoking age -15 Alcohol Use Standard Drinks/Week Comments No 0 (1 standard drink = 0.6 oz pur e alcohol) PHQ-2 Answer Date Recorded PHQ-2 Score -1 07/25/2020 Sex and Gender Information Value Date Recorded Sex Assigned at Not on file Gender Identity Not on file Sexual Orientation Not on file Job Start Date Occupation Industry Not on file Not on file Not on file documented as of this encounter Functional Status Functional Status Response Date of Assess ment Are you deaf or do you have serious difficulty h earing? No 04/08/2022 Are you blind or do you have serious difficulty seeing, even when wearing glasses? No 04/08/2022 Do you have serious difficul ty walking or climbing stairs? (5 years old or older) No 04/08/2022 Do you have difficulty dress ing or bathing? (5 years old or older) No 04/08/2022 Because of a physical, menta l, or emotional condition, do you have difficulty doing errands alone such as visiting a doctor s office or shopping? (15 years old or older) No 04/08/20 22 Cognitive Status Response Date of Assessm ent Because of a physical, menta l, or emotional condition, do you have serious difficulty concentrating, remembering, or making decisions? (5 years old or older) No 04/08/2022 documented as of this encounter Miscellaneous Notes * Telephone Encounter - Christal Kc OSA - 04/09/2024 6:47 PM EDT Patient's daughter called back to say that patient's sugar level was at 305. Please call her back to follow up. Thank you. * Telephone Encounter - Ivonne Frankel LPN - 04/04/2024 11:46 AM EDT LM to reach out to diaylsis nurses regarding * Telephone Encounter - Lindsey Hay OSA - 04/04/2024 10:47 AM EDT Krystal information systems security specialist came in she is concerned about high blood sugar. He saw physician and they want him to start Januvia. Because they are on dialysis they'd like to have your approval first. Please call Krystal at [phone] Please Advise. documented in this encounter Plan of Treatment Scheduled Procedures Name Priority Associated Diagnoses Date/Ti me COLONOSCOPY FLEXIBLE PROXIMA L DIAGNOSTIC Recall History of colonic polyps Health Maintenance Due Date Last Done Comments Alpha-1 Antitrypsin 1961 Zoster Vaccines (1 of 2) 1993 DISCUSS TOBACCO CESSATION (REFER TO SMARTSET #3291) 06/25/2016 06/25/2015 Depression Monitoring 2021 02/02/2020 HbA1c 06/27/2023 12/28/2022, 0411/2021, 05/02/2021, Additional history exists COVID-19 Vaccine (2022- season) 2023 Diabetic Eye Exam 11/16/2023 11/16/2022, , 01/01/2019, Additional history exists Colonoscopy 01/05/2024 01/04/2023, 1207/2020, 10/13/2020, Additional history exists Diabetic Foot Exam 03/29/2024 03/29/2023, 0 05/30/2022, 05/02/2021, Additional history exists Influenza Vaccine (FLU shot) (Season Ended) 2024 10/05/2020, 09/05/2020, 07/30/2018 (Refused), Additional history exists O2 ASSESSMENT COMPLETED IN PAST YEAR FOR COPD 10/16/2024 10/16/2023 DTaP,Tdap,and Td Vaccines (2 - Td or Tdap) 01/01/2028 01/01/2018 (Refused) Pneumococcal Vaccine: 65+ Years Completed 04/22/2020, 02/26/2020 RETIRED - COLONOSCOPY-ANNUAL AGES 18-100 Discontinued 01/04/2023, 10/13/2020, 10/13/2020, Additional history exists RETIRED - COLONOSCOPY-EVERY 5 YRS AGES 18-100 Discontinued 01/04/2023, 10/13/2020, 10/13/2020, Additional history exists Hepatitis B Completed 04/16/2023, 08/05, 04/13/2020, Additional history exists GARDASIL-HPV IMMUNIZATION SERIES Aged Out No longer eligible based on patient's age to complete this topic MENINGOCOCCAL (MENACTRA/MENVEO) Aged Out No longer eligible based on patient's age to complete this topic documented as of this encounter Medical Devices Implanted Type Area Weigher And Charger Device Identifier Shelf Expiration Date Model / Serial / Lot Clip Quick 2.8mm 230cm - [id number] Implanted:Qty: 2 on 08/19/2019 by Silvia Beaulieu MD at [facility] [employer] 03/04/2022 [id number] / / Lead Tempo Temp Pacing - [id number] Implanted:Qty: 1 on 02/16/2022 by Dalton Moulton MD at [facility] [place] [employer] [id number] 11/29/2023 [id number] / / [id number] Valve Valentina 3 Ultra 26mm - [id number] Implanted:Qty: 1 on 02/17/2022 by Dalton Moulton MD at [facility] [place] [employer] [id number] 10/19/2022 [id number] / / documented as of this encounter Advance Directives * Full Code (Latest Code Status on File) Date Activated Date Inactivated Comments 04/09/2022 12:34 AM 04/11/2022 11:04 PM This order r eflects the patients wishes and were consensually agreed upon. Question Answer Comments Discussion of Advance Directives occurred with: Patient * Full Code Date Activated Date Inactivated Comments 03/16/2022 12:00 AM 04/04/2022 7:38 PM This order reflects the patients wishes and were consensually agreed upon. Question Answer Comments Discussion of Advance Directives occurred with: Patient Does the patient have a Living Will? No Does the patient have Health Care Power of Attor emiliana? No * Full Code Date Activated Date Inactivated Comments 02/16/2022 11:19 AM 02/17/2022 6:11 PM This order reflects the patients wishes and were consensually agreed upon. * Full Code Date Activated Date Inactivated Comments 02/02/2022 11:37 PM 02/07/2022 10:10 PM This order reflects the patients wishes and were consensually agreed upon. Question Answer Comments Discussion of Advance Directives occurred with: Patient Healthcare Agents on File Name Relationship Healthcare Agent Relationshi p Communication Krystal Adam Adult Child Health Care Agent
[2024-04-19 08:08] LABS: Hematocrit (blood only) 35.5 % (42.0-52.0); Hemoglobin 10.9 g/dl (14.0-18.0); Mean Corpuscular Hemoglobin 31.3 pg (25.0-34.0); Mean Corpuscular Hgb Conc 30.7 g/dL (32.0-36.0); Mean Platelet Volume 9.8 fL (9.4-12.4); Platelet Count 171 K/uL (130-400); RDW Coefficient of Variation 15.5 % (11.5-14.5); Red Blood Count 3.48 M/uL (4.70-6.10); White Blood Count 12.14 K/ul (4.8-10.8)
[2024-04-19 08:33] LABS: BUN Creatinine Ratio 8.3 (10-20); Calcium 9.9 mg/dl (8.6-10.3); Creatinine Clr Calc Pharmacy 12.3 ml/min; Est GFR (African American) 12.5 ml/min; Est GFR (Non-African American) 10.8 ml/min; Magnesium 1.9 mg/dl (1.7-2.4); Phosphorus 4.3 mg/dl (2.5-4.9); Potassium 3.8 mmol/L (3.5-5.1)
[2024-04-19] MEDS: amLODIPine BESYLATE 5 MG TAB PO SCH (09:05)
[2024-04-19] MEDS: LANTUS PER UNIT CHARGE SQ SCH (09:12)
[2024-04-19] MEDS ORDERED: ALBUTEROL HFA 8 GM INHALER INH PRN (11:01)
--- NOTE | 2024-04-19 11:12 | Hospitalist Progress Note ---
Date of Service April 19, 2024 Assessment & Plan (1) Severe sepsis: (2) Gram-positive bacteremia: (3) Hyperglycemia due to type 2 diabetes mellitus: (4) ESRD (end stage renal disease) on dialysis: Plan Patient significantly improved but still requires hospitalization, high risk for further decompensation without monitoring of laboratory studies, he requires IV antibiotics and specialty evaluation. Continue antibiotics while sensitivities pending, continue oral vancomycin for C. difficile prophylaxis Infectious disease consultation, pending Echocardiogram pending Consult cardiology for possible ALBERTO, however if it turns out to be a contaminant may not need to pursue Patient has not had any significant hyperglycemia here With the low-dose Lantus. Restart his Januvia. Continue to monitor glucose Continue dialysis as directed by nephrology Phone conversation and updated patient's daughter Admission and Anticipated Discharge Date Admission Date: April 18, 2024 Subjective Patient feeling significantly improved. Denies any new pains or complaints Physical Exam Physical Exam: Constitutional: Alert HEENT: Mucous membranes moist. Lungs: Clear to auscultation, decreased, no wheezes rales or rhonchi CV: S1-S2, regular Abdomen: Soft, nontender, nondistended Extremities: No significant edema, AV fistula left upper extremity. Both great toes with significant onychomycosis, thick calluses but no evidence of cellulitis or infection or ulceration Neuro: No focal deficits Psych: Cooperative, normal mood Results & Data Results & Data Vital Signs (Past 12 Hours) Vital Signs Temp Pulse Pulse Pulse Resp BP Pulse Ox 04/19/24 07:32 61 04/19/24 07:20 36.8 C 60 18 179/77 H 95 04/19/24 04:00 04/19/24 03:40 36.8 C 65 18 173/74 H 95 04/18/24 23:14 36.7 C 58 L 18 152/62 H 98 Pulse Ox O2 Del Method O2 Del Method 04/19/24 07:32 04/19/24 07:20 Room Air 04/19/24 04:00 95 Room Air 04/19/24 03:40 Room Air 04/18/24 23:14 Room Air Diagnostic Findings Reviewed imaging, laboratory and diagnostic studies. Pertinent findings as below. Glucose was reviewed, well-controlled Blood cultures reviewed, appears that blood culture may be alpha strep not strep pneumo, awaiting final sensitivity
--- NOTE | 2024-04-19 15:10 | Nephrology Progress Note ---
Date of Service April 19, 2024 Assessment & Plan (1) ESRD (end stage renal disease) on dialysis: Plan: he had dialysis yesterday which he tolerated fine. was having some diarrhea which shortened the treatment time. we took out 2 kilo off. Current Admission is for possible Infection although not clear the source. Did have some diarrhea and is getting treatment for C diff. next HD on sunday Admission and Anticipated Discharge Date Admission Date: April 18, 2024 Subjective Seen for ESRD. No shortness of breath or leg swelling. He had dialysis yesterday. Review of Systems 2 Review of Systems: All other systems were reviewed and negative except as noted in HPI Physical Exam 2 Physical Exam: General exam: Appears comfortable, no acute distress HEENT: Pupils are equal and reactive to light Neck: No JVD, neck is supple trachea is midline Respiratory system: Clear breath sounds bilaterally. Gastrointestinal: Abdomen is soft, non distended, non tender, bowel sounds are present CVS: Regular rate and rhythm. No murmurs, rubs or gallops Musculoskeletal: No joint or muscle tenderness Extremities: Non tender, no edema, peripheral pulses are present Neuro: Oriented, no tremors, no focal neurological deficits Skin: No rashes Access: left US AVF. good bruit Results & Data Vital Signs (Past 12 Hours) Vital Signs Temp Pulse Pulse Pulse Resp BP Pulse Ox 04/19/24 11:55 36.7 C 53 L 18 150/69 H 96 04/19/24 11:09 04/19/24 07:32 61 04/19/24 07:20 36.8 C 60 18 179/77 H 95 04/19/24 04:00 04/19/24 03:40 36.8 C 65 18 173/74 H 95 Pulse Ox O2 Del Method O2 Del Method 04/19/24 11:55 Room Air 04/19/24 11:09 Room Air 04/19/24 07:32 04/19/24 07:20 Room Air 04/19/24 04:00 95 Room Air 04/19/24 03:40 Room Air Laboratory Results 04/19/24 07:24 04/19/24 07:24 WBC 12.14 H RBC 3.48 L MCV 102.0 H MCH 31.3 MCHC 30.7 L RDW Std Deviation 57.0 H RDW Coeff of Danny 15.5 H Plt Count 171 MPV 9.8 Phosphorus 4.3
[2024-04-20] MEDS: DAPTOmycin 450 MG in SYRINGE 0 ML IV SCH (01:18)
[2024-04-20 06:43] LABS: Basophils # (auto) 0.05 K/uL (0.00-0.20); Basophils % (auto) 0.5 %; Eosinophils % (auto) 3.6 %; Hematocrit (blood only) 32.4 % (42.0-52.0); Hemoglobin 10.4 g/dl (14.0-18.0); Immature Granulocytes # (auto) 0.06 K/uL (0.01-0.20); Immature Granulocytes % (auto) 0.5 %; Lymphocytes # (auto) 1.27 K/uL (1.20-3.40); Lymphocytes % (auto) 11.5 %; Mean Corpuscular Hgb Conc 32.1 g/dL (32.0-36.0); Mean Corpuscular Volume 99.7 fL (80.0-100.0); Monocytes # (auto) 1.33 K/uL (0.11-0.59); Neutrophils # (auto) 7.97 K/uL (1.40-6.50); Neutrophils % (auto) 71.9 %; Platelet Count 158 K/uL (130-400); RDW Coefficient of Variation 14.8 % (11.5-14.5); Red Blood Count 3.25 M/uL (4.70-6.10); White Blood Count 11.08 K/ul (4.8-10.8)
[2024-04-20 07:04] LABS: BUN Creatinine Ratio 9.9 (10-20); Calcium 9.8 mg/dl (8.6-10.3); Creatinine Clr Calc Pharmacy 9.4 ml/min; Est GFR (Non-African American) 7.8 ml/min; Magnesium 2.1 mg/dl (1.7-2.4); Potassium 3.9 mmol/L (3.5-5.1)
[2024-04-20] MEDS: SUCROFERRIC OXYHYDROXIDE 500 MG CHEW PO SCH (08:58)
[2024-04-20] MEDS ORDERED: SITagliptin PHOSPHATE 100 MG TAB PO SCH (09:00)
--- NOTE | 2024-04-20 11:31 | Cardiology Consultation ---
Date of Consultation April 20, 2024 Assessment & Plan (1) Gram-positive bacteremia: (2) S/P TAVR (transcatheter aortic valve replacement): (3) ESRD (end stage renal disease) on dialysis: Plan Alpha strep bacteremia in patient with known TAVR. Echocardiogram without valvular dysfunction or overt vegetation with limitations of transthoracic study Plan: Await ID input. Will keep n.p.o. after midnight. Transesophageal echocardiogram available though uncertain whether this will mold changer Will follow History of Present Illness Reason for Consultation: Possible ALBERTO Requesting Physician: Dr. Carolina Attending Physician: Daquan Carolina, DO History of Present Illness Patient is an 79-year-old male with underlying cardiac concerns Severe aortic valve stenosis S/P TAVR # 26 mm Artis Valentina S3 Ultra valve (underinflated by one cc) 02/16/2022 Cardiac catheterization preoperatively 02/02/2022 mild nonobstructive coronary Dyslipidemia Diabetes mellitus, type 2 ESRD on PD Tobacco use COPD Prior bacteremia August 2023 with Enterococcus faecalis treated with extended 6-week course of IV antibiotics Patient referred to consider transesophageal echocardiogram. Has not been following with cardiology routinely since valvular procedure. Recent difficulties with elevated glucoses with the ER evaluations ultimately evaluated for sepsis with blood cultures growing alpha strep Patient currently denies any symptoms fevers or chills notes no chest pains or discomfort notes no dizziness lightness syncope or near syncope no TIA or stroke. No embolic phenomena. No difficulty swallowing no prior difficulties with anesthesia Allergies Allergy/AdvReac Type Severity Reaction Status Date / Time No Known Allergies Allergy Verified 04/09/24 23:35 Home Medications Medication Instructions Recorded Confirmed Type atorvastatin 40 mg tablet 40 mg PO QAM 07/31/19 04/18/24 History cholecalciferol (vitamin D3) 25 1,000 unit PO QAM 07/31/19 04/18/24 History mcg (1,000 unit) tablet (Vitamin D3) finasteride 5 mg tablet 5 mg PO HS 07/31/19 04/18/24 History aspirin 81 mg tablet,delayed 81 mg PO QAM 01/06/20 04/18/24 History release tamsulosin 0.4 mg capsule 0.4 mg PO HS 03/20/23 04/18/24 History albuterol sulfate 90 mcg/actuation 2 puff inhalation Q6H PRN Wheezing 04/09/24 04/18/24 History aerosol inhaler amlodipine 5 mg tablet 5 mg PO QAM 04/09/24 04/18/24 History calcitriol 0.25 mcg capsule 0 mcg PO DAILY 04/09/24 04/18/24 History citalopram 40 mg tablet 40 mg PO QAM 04/09/24 04/18/24 History fluticasone furoate 200 0 inh inhalation DAILY 04/09/24 04/18/24 History mcg-vilanterol 25 mcg/dose inhalation powder (Breo Ellipta) ondansetron HCl 4 mg tablet 4 mg PO Q8H PRN NAUSEA/VOMITING 04/09/24 04/18/24 History pantoprazole 20 mg tablet,delayed 20 mg PO QAM 04/09/24 04/18/24 History release sevelamer carbonate 800 mg tablet 2,400 mg PO TIDM 04/09/24 04/18/24 History sucroferric oxyhydroxide 500 mg 500 mg PO TIDM 04/09/24 04/18/24 History chewable tablet (Velphoro) vitamin B complex and vitamin C 1 cap PO DAILY 04/09/24 04/18/24 History no.20-folic acid 1 mg capsule sitagliptin phosphate 100 mg 100 mg PO DAILY 04/18/24 04/18/24 History tablet (Januvia) Patient History Medical History CHF (congestive heart failure) AV fistula left wrist Osteoarthritis Anxiety and depression Hypertension Surgical History SBO (small bowel obstruction) with surgical intervention History of esophagogastroduodenoscopy (EGD) History of colonoscopy History of cholecystectomy History of tooth extraction History of cataract surgery RT/LEFT History of procedure for peripheral vascular disease LEFT LEG (STENT PLACED) Cardiac murmur no cardio Family History Brother Cancer Social History Smoking Status: Current every day smoker Tobacco Type: Cigarettes Age Started Using Tobacco: 16; packs per day: 0.5; Cigarettes Per Day: 10; Second Hand Exposure: No; Do You Dip or Chew Tobacco: No; Hx Alcohol Use: No Hx Substance Use: No Preferred Language: Azeri Communication Ability: Effective Visual Impairment: No Limitations Hearing Ability: Hard of Hearing Vendette Required: No Beliefs That Will Affect Care: None marital status: Single Current Living Situation: Alone Current Living Situation Comment: daughter helps with cooking and cleaning current occupational status: retired 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 Feels Safe at Home: Yes Diet: regular during the past year weight has: remained stable Assistive Devices: Walker Physical Exam Constitutional: no acute distress Eyes: PERRL, conjunctivae normal, anicteric sclerae ENMT: external ear and nose normal, oropharynx normal Neck: trachea midline, no thyromegaly Cardiovascular: Rate/Rhythm: regular rate Heart Sounds: + murmur Vessels: no JVD Gastrointestinal (Abdomen): normal bowel sounds, soft, nontender, no hepatosplenomegaly Musculoskeletal: no cyanosis or clubbing, extremities motor strength 5/5 Results & Data Vital Signs (Past 12 Hours) Vital Signs Temp Pulse Pulse Resp BP Pulse Ox Pulse Ox 04/20/24 10:54 36.8 C 64 18 146/68 H 96 04/20/24 07:47 59 L 04/20/24 07:24 36.7 C 62 18 184/83 H 97 04/20/24 04:00 94 04/20/24 04:00 36.5 C 69 18 157/70 H 94 O2 Del Method O2 Del Method 04/20/24 10:54 Room Air 04/20/24 07:47 04/20/24 07:24 Room Air 04/20/24 04:00 Room Air 04/20/24 04:00 Room Air Diagnostic Findings Laboratory Results - last 24 hr 04/19/24 04/19/24 04/19/24 12:20 17:03 20:00 WBC RBC Hgb Hct MCV MCH MCHC RDW Std Deviation RDW Coeff of Danny Plt Count MPV Immature Gran % (Auto) Neut % (Auto) Lymph % (Auto) [place] % (Auto) Eos % (Auto) Baso % (Auto) Neut # (Auto) Lymph # (Auto) [place] # (Auto) Eos # (Auto) Baso # (Auto) Immature Gran # (Auto) Sodium Potassium Chloride Carbon Dioxide Anion Gap BUN Creatinine Est Cr Clr Drug Dosing Est GFR ( Amer) Est GFR (Non-Af Amer) BUN/Creatinine Ratio Glucose POC Glucose 106 H 76 222 H Calcium Magnesium 04/20/24 04/20/24 06:10 08:03 WBC 11.08 H RBC 3.25 L Hgb 10.4 L Hct 32.4 L MCV 99.7 MCH 32.0 MCHC 32.1 RDW Std Deviation 54.0 H RDW Coeff of Danny 14.8 H Plt Count 158 MPV 10.0 Immature Gran % (Auto) 0.5 Neut % (Auto) 71.9 Lymph % (Auto) 11.5 [place] % (Auto) 12.0 Eos % (Auto) 3.6 Baso % (Auto) 0.5 Neut # (Auto) 7.97 H Lymph # (Auto) 1.27 [place] # (Auto) 1.33 H Eos # (Auto) 0.40 Baso # (Auto) 0.05 Immature Gran # (Auto) 0.06 Sodium 133 L Potassium 3.9 Chloride 97 L Carbon Dioxide 24 Anion Gap 12 H BUN 61 H D Creatinine 6.18 H* D Est Cr Clr Drug Dosing 9.4 Est GFR ( Amer) 9.0 Est GFR (Non-Af Amer) 7.8 BUN/Creatinine Ratio 9.9 L Glucose 108 H POC Glucose 114 H Calcium 9.8 Magnesium 2.1 Echocardiogram 04/19/2024 Normally functioning VALENTINA style aortic valve replacement (TAVR). No visualiz ed vegetation or evidence of valve obstruction trace aortic insufficiency only Findings not significantly changed from prior study ECG Additional Comments: EKG sinus rhythm with first-degree AV block, left anterior fascicular block, right bundle branch block not significantly changed from prior
--- NOTE | 2024-04-20 12:40 | Hospitalist Progress Note ---
Date of Service April 20, 2024 Assessment & Plan (1) Severe sepsis: (2) Gram-positive bacteremia: (3) Hyperglycemia due to type 2 diabetes mellitus: (4) ESRD (end stage renal disease) on dialysis: Plan Patient with severe sepsis is now resolved due to alpha strep bacteremia of unclear source. Has improved. Continue IV antibiotics as prescribed Infectious disease consult pending Sunday Communication with cardiology, Dr. Zamorano, agrees with continuing with IV antibiotics. Will have patient prepared for possible ALBERTO tomorrow again pending infectious disease recommendation Continue hemodialysis as directed by nephrology Continue current diabetes management, no significant hypoglycemia experienced here Increase [facility] for better blood pressure control Case management Admission and Anticipated Discharge Date Admission Date: April 18, 2024 Subjective Patient reports feeling well today. No acute complaints. No acute issues overnight reported by nursing Physical Exam Physical Exam: Constitutional: Alert HEENT: Mucous membranes moist. Lungs: Clear to auscultation, decreased, no wheezes rales or rhonchi CV: S1-S2, regular, murmur Abdomen: Soft, nontender, nondistended Extremities: No significant edema Neuro: No focal deficits, generalized weakness Psych: Cooperative, normal mood Results & Data Results & Data Vital Signs (Past 12 Hours) Vital Signs Temp Pulse Pulse Resp BP Pulse Ox Pulse Ox 04/20/24 10:54 36.8 C 64 18 146/68 H 96 04/20/24 07:47 59 L 04/20/24 07:24 36.7 C 62 18 184/83 H 97 04/20/24 04:00 94 04/20/24 04:00 36.5 C 69 18 157/70 H 94 O2 Del Method O2 Del Method 04/20/24 10:54 Room Air 04/20/24 07:47 04/20/24 07:24 Room Air 04/20/24 04:00 Room Air 04/20/24 04:00 Room Air Diagnostic Findings Reviewed imaging, laboratory and diagnostic studies. Pertinent findings as below. Initial blood cultures growing alpha strep. Repeat blood cultures sterile to date Glucoses reviewed, overall well-controlled CT chest abdomen pelvis no identifiable source of bacteremia
--- NOTE | 2024-04-20 14:44 | Nephrology Progress Note ---
Date of Service April 20, 2024 Assessment & Plan (1) ESRD (end stage renal disease) on dialysis: Plan: he had dialysis Sunday which he tolerated fine. was having some diarrhea which shortened the treatment time. we took out 2 kilo off. Next dialysis is tomorrow for 3 hours negative of 2 L Admission and Anticipated Discharge Date Admission Date: April 18, 2024 Subjective Seen for ESRD. No shortness of breath. He is planned for ALBERTO tomorrow. Review of Systems 2 Review of Systems: All other systems were reviewed and negative except as noted in HPI Physical Exam 2 Physical Exam: General exam: Appears comfortable, no acute distress HEENT: Pupils are equal and reactive to light Neck: No JVD, neck is supple trachea is midline Respiratory system: Clear breath sounds bilaterally. Gastrointestinal: Abdomen is soft, non distended, non tender, bowel sounds are present CVS: Regular rate and rhythm. No murmurs, rubs or gallops Musculoskeletal: No joint or muscle tenderness Extremities: Non tender, no edema, peripheral pulses are present Neuro: Oriented, no tremors, no focal neurological deficits Skin: No rashes Access: left US AVF. good bruit Results & Data Vital Signs (Past 12 Hours) Vital Signs Temp Pulse Pulse Resp BP Pulse Ox Pulse Ox 04/20/24 10:54 36.8 C 64 18 146/68 H 96 04/20/24 07:47 59 L 04/20/24 07:24 36.7 C 62 18 184/83 H 97 04/20/24 04:00 94 04/20/24 04:00 36.5 C 69 18 157/70 H 94 O2 Del Method O2 Del Method 04/20/24 10:54 Room Air 04/20/24 07:47 04/20/24 07:24 Room Air 04/20/24 04:00 Room Air 04/20/24 04:00 Room Air Laboratory Results 04/20/24 06:10 04/20/24 06:10 WBC 11.08 H RBC 3.25 L MCV 99.7 MCH 32.0 MCHC 32.1 RDW Std Deviation 54.0 H RDW Coeff of Danny 14.8 H Plt Count 158 MPV 10.0
[2024-04-20] MEDS ORDERED: BENZONATATE 100 MG CAPSULE PO PRN (20:35)
[2024-04-20] MEDS ORDERED: BENZONATATE 100 MG CAPSULE PO ONE (20:35)
[2024-04-21 06:32] LABS: Hematocrit (blood only) 31.5 % (42.0-52.0); Mean Corpuscular Hemoglobin 31.3 pg (25.0-34.0); Mean Corpuscular Hgb Conc 31.7 g/dL (32.0-36.0); Mean Corpuscular Volume 98.7 fL (80.0-100.0); Mean Platelet Volume 10.3 fL (9.4-12.4); Platelet Count 163 K/uL (130-400); RDW Coefficient of Variation 14.3 % (11.5-14.5); RDW Standard Deviation 52.1 fL (36.4-46.3); Red Blood Count 3.19 M/uL (4.70-6.10); White Blood Count 9.14 K/ul (4.8-10.8)
[2024-04-21 06:54] LABS: BUN Creatinine Ratio 9.7 (10-20); Calcium 9.4 mg/dl (8.6-10.3); Creatinine Clr Calc Pharmacy 6.9 ml/min; Est GFR (African American) 6.3 ml/min; Est GFR (Non-African American) 5.4 ml/min; Magnesium 2.2 mg/dl (1.7-2.4)
[2024-04-21] MEDS ORDERED: SODIUM CHLORIDE 0.9% 1,000 ML IV PRN (07:00)
[2024-04-21] MEDS: HEPARIN SOD (PORCINE) 1000 UNIT/ML IV ONE (10:57)
[2024-04-21] MEDS: HEPARIN SOD (PORCINE) 1000 UNIT/ML IV SCH (10:58)
--- NOTE | 2024-04-21 11:42 | Hospitalist Progress Note ---
Date of Service April 21, 2024 Assessment & Plan (1) Severe sepsis: (2) Gram-positive bacteremia: (3) Hyperglycemia due to type 2 diabetes mellitus: (4) ESRD (end stage renal disease) on dialysis: Plan Patient mid with severe sepsis due to gram-positive bacteremia, sepsis has resolved. Patient also reported having significant episode of his hyperglycemia. This appears to have resolved well and has been controlled on his usual insulin dosages. Communication with cardiology, Dr. Zamorano, will await input from infectious disease until proceeding with ALBERTO, however would be able to do it any day this week. Communication with infectious disease, aware of consult and will evaluate patient and make recommendations at some point today Continue current antibiotics Continue oral vancomycin for prophylaxis of C. difficile with patient history of C. difficile. Nurse reports he is continues to have some loose stools intermittently Norvasc just increased for better blood pressure control, continue to monitor blood pressures and adjust medications as needed Updated daughter via phone. 52 minutes coordinating care with specialists, communication with staff, updating family, reviewing EMR and evaluating patient at bedside Admission and Anticipated Discharge Date Admission Date: April 18, 2024 Subjective No acute issues overnight, patient states he is feeling better. Physical Exam Physical Exam: Constitutional: Alert HEENT: Mucous membranes moist. Lungs: Clear to auscultation, decreased, no wheezes rales or rhonchi CV: S1-S2, regular Abdomen: Soft, nontender, nondistended Extremities: No significant edema, AV fistula left upper extremity Neuro: No focal deficits Psych: Cooperative, normal mood Results & Data Results & Data Vital Signs (Past 12 Hours) Vital Signs Temp Pulse Pulse Pulse Resp BP BP 04/21/24 11:30 57 L 167/69 H 04/21/24 11:00 56 L 163/75 H 04/21/24 10:30 56 L 161/76 H 04/21/24 10:00 60 178/72 H 04/21/24 09:53 61 180/78 H 04/21/24 09:44 36.6 C 65 04/21/24 07:50 04/21/24 07:49 36.7 C 64 18 175/75 H 04/21/24 07:19 63 04/21/24 04:06 36.6 C 62 20 167/72 H 04/21/24 04:00 04/20/24 23:42 36.7 C 64 20 155/70 H Pulse Ox Pulse Ox O2 Del Method O2 Del Method 04/21/24 11:30 04/21/24 11:00 04/21/24 10:30 04/21/24 10:00 04/21/24 09:53 04/21/24 09:44 04/21/24 07:50 Room Air 04/21/24 07:49 97 Room Air 04/21/24 07:19 04/21/24 04:06 98 Room Air 04/21/24 04:00 98 Room Air 04/20/24 23:42 98 Room Air Diagnostic Findings Reviewed imaging, laboratory and diagnostic studies. Pertinent findings as below. Chemistry is consistent with end-stage renal disease on dialysis Glucoses reviewed, overall fair control. Surveillance blood cultures sterile to date
[2024-04-21] MEDS: amLODIPine BESYLATE 5 MG TAB PO SCH (13:15)
--- NOTE | 2024-04-21 15:50 | Nephrology Progress Note ---
Date of Service April 21, 2024 Assessment & Plan (1) ESRD (end stage renal disease) on dialysis: Plan: he had dialysis Sunday which he tolerated fine. was having some diarrhea which shortened the treatment time. patient tolerated dialysis well today. Next dialysis will be Sunday. Admission and Anticipated Discharge Date Admission Date: April 18, 2024 Subjective Seen in follow-up for ESRD. No shortness of breath. No leg swelling. Patient was seen and examined while on dialysis earlier. Review of Systems Review of Systems: All other systems were reviewed and negative except as noted in HPI Physical Exam Physical Exam: General exam: Appears comfortable, no acute distress HEENT: Pupils are equal and reactive to light Neck: No JVD, neck is supple trachea is midline Respiratory system: Clear breath sounds bilaterally. Gastrointestinal: Abdomen is soft, non distended, non tender, bowel sounds are present CVS: Regular rate and rhythm. No murmurs, rubs or gallops Musculoskeletal: No joint or muscle tenderness Extremities: Non tender, no edema, peripheral pulses are present Neuro: Oriented, no tremors, no focal neurological deficits Skin: No rashes Access: left US AVF. good bruit Results & Data Vital Signs (Past 12 Hours) Vital Signs Temp Pulse Pulse Pulse Resp BP BP 04/21/24 15:32 68 04/21/24 15:22 36.4 C L 68 18 157/64 H 04/21/24 13:14 36.7 C 58 L 16 198/75 H 04/21/24 13:10 36.4 C L 57 L 189/82 H 04/21/24 12:30 82 108/62 04/21/24 12:00 58 L 133/73 04/21/24 11:30 57 L 167/69 H 04/21/24 11:00 56 L 163/75 H 04/21/24 10:30 56 L 161/76 H 04/21/24 10:00 60 178/72 H 04/21/24 09:53 61 180/78 H 04/21/24 09:44 36.6 C 65 04/21/24 07:50 04/21/24 07:49 36.7 C 64 18 175/75 H 04/21/24 07:19 63 04/21/24 04:06 36.6 C 62 20 167/72 H 04/21/24 04:00 Pulse Ox Pulse Ox O2 Del Method O2 Del Method 04/21/24 15:32 04/21/24 15:22 92 Room Air 04/21/24 13:14 97 Room Air 04/21/24 13:10 04/21/24 12:30 04/21/24 12:00 04/21/24 11:30 04/21/24 11:00 04/21/24 10:30 04/21/24 10:00 04/21/24 09:53 04/21/24 09:44 04/21/24 07:50 Room Air 04/21/24 07:49 97 Room Air 04/21/24 07:19 04/21/24 04:06 98 Room Air 04/21/24 04:00 98 Room Air
--- NOTE | 2024-04-22 11:12 | Nephrology Progress Note ---
Date of Service April 22, 2024 Assessment & Plan (1) ESRD (end stage renal disease) on dialysis: Plan: he had dialysis Sunday which he tolerated fine. was having some diarrhea which shortened the treatment time. patient tolerated dialysis well yesterday. Next dialysis will be Sunday if inhouse. Admission and Anticipated Discharge Date Admission Date: April 18, 2024 Subjective Seen for ESRD. No shortness of breath or leg swelling. He had dialysis yesterday. Review of Systems 2 Review of Systems: All other systems were reviewed and negative except as noted in HPI Physical Exam 2 Physical Exam: General exam: Appears comfortable, no acute distress HEENT: Pupils are equal and reactive to light Neck: No JVD, neck is supple trachea is midline Respiratory system: Clear breath sounds bilaterally. Gastrointestinal: Abdomen is soft, non distended, non tender, bowel sounds are present CVS: Regular rate and rhythm. No murmurs, rubs or gallops Musculoskeletal: No joint or muscle tenderness Extremities: Non tender, no edema, peripheral pulses are present Neuro: Oriented, no tremors, no focal neurological deficits Skin: No rashes Access: left US AVF. good bruit Results & Data Vital Signs (Past 12 Hours) Vital Signs Temp Pulse Pulse Resp BP Pulse Ox Pulse Ox 04/22/24 11:00 36.5 C 57 L 14 145/68 H 95 04/22/24 07:20 36.5 C 63 15 175/74 H 94 04/22/24 07:10 04/22/24 07:04 65 04/22/24 04:22 36.6 C 56 L 20 180/72 H 98 04/22/24 04:00 98 04/22/24 00:02 36.9 C 79 20 173/77 H 96 O2 Del Method O2 Del Method 04/22/24 11:00 Room Air 04/22/24 07:20 Room Air 04/22/24 07:10 Room Air 04/22/24 07:04 04/22/24 04:22 Room Air 04/22/24 04:00 Room Air 04/22/24 00:02 Room Air Laboratory Results 04/21/24 05:57
--- NOTE | 2024-04-22 16:00 | Hospitalist Progress Note ---
Date of Service April 22, 2024 Assessment & Plan (1) Gram-positive bacteremia: (2) Severe sepsis: (3) Hyperglycemia due to type 2 diabetes mellitus: (4) ESRD (end stage renal disease) on dialysis: Plan Continue with current antibiotic regimen, reached out to infectious disease for final recommendations. Infectious disease antibiotic recommendations pending Glucose is well-controlled continue current regimen Continue hemodialysis per nephrology, Patient ready for discharge when outpatient antibiotics coordinated. Anticipate patient will need to be in the hospital till least tomorrow to get his dialysis due to the holiday transportation not available for outpatient dialysis tomorrow. Admission and Anticipated Discharge Date Admission Date: April 18, 2024 Subjective No acute events overnight. Patient is feeling well. Physical Exam Physical Exam: Constitutional: Alert HEENT: Mucous membranes moist. Lungs: Clear to auscultation, decreased, no wheezes rales or rhonchi CV: S1-S2, regular, systolic murmur Abdomen: Soft, nontender, nondistended Extremities: No significant edema Neuro: No focal deficits Psych: Cooperative, normal mood Results & Data Results & Data Vital Signs (Past 12 Hours) Vital Signs Temp Pulse Pulse Resp BP Pulse Ox Pulse Ox 04/22/24 15:03 36.4 C L 58 L 15 149/67 H 96 04/22/24 14:51 62 04/22/24 11:00 36.5 C 57 L 14 145/68 H 95 04/22/24 07:20 36.5 C 63 15 175/74 H 94 04/22/24 07:10 04/22/24 07:04 65 04/22/24 04:22 36.6 C 56 L 20 180/72 H 98 04/22/24 04:00 98 O2 Del Method O2 Del Method 04/22/24 15:03 Room Air 04/22/24 14:51 04/22/24 11:00 Room Air 04/22/24 07:20 Room Air 04/22/24 07:10 Room Air 04/22/24 07:04 04/22/24 04:22 Room Air 04/22/24 04:00 Room Air Diagnostic Findings Glucose was reviewed
--- NOTE | 2024-04-22 16:25 | Infectious Disease Consult ---
Date of Service April 22, 2024 Telehealth Information I performed this visit using a real-time telehealth connection between my location and the patients location ([facility]). After connecting through interactive tele-video, patient was identified by name and date of and/or wristband check.Patient (or authorized healthcare it sales representative) was informed that this was a telemedicine visit and it was being conducted confidentially over secure lines. My office door was closed and no one else was present in the room with me.Patient (or authorized healthcare it sales representative) provided consent to proceed with the visit, expressed an understanding of privacy and security of the telemedicine visit, and gave permission to have a hospital it sales representative in the room in order to assist with the visit and to conduct portions of the visit, as needed. I informed the patient (or authorized healthcare it sales representative) that I reviewed their record and presented the opportunity for them to ask any questions regarding the visit today. The patient agreed to participate. Assessment & Plan (1) Gram-positive bacteremia: Plan: When I discussed with the [facility] provider yesterday, I recommend to ask micro for the isolate to be identified (with susceptibilities). When I called the micro lab today, they had not done so. I requested identification and susceptibilities. Given the TAVR, I will recommend to treat with another 6-week course of ABX given with iHD. History of Present Illness History of Present Illness The patient was admitted for hyperglycemia. He was found to have GPC bacteremia (Strep). At the time of my exam, the patient denied any signs or symptoms that would be consistent with a spine infection or a septic arthritis. Allergies Allergy/AdvReac Type Severity Reaction Status Date / Time No Known Allergies Allergy Verified 04/09/24 23:35 Home Medications Medication Instructions Recorded Confirmed Type atorvastatin 40 mg tablet 40 mg PO QAM 07/31/19 04/18/24 History cholecalciferol (vitamin D3) 25 1,000 unit PO QAM 07/31/19 04/18/24 History mcg (1,000 unit) tablet (Vitamin D3) finasteride 5 mg tablet 5 mg PO 07/31/19 04/18/24 History aspirin 81 mg tablet,delayed 81 mg PO QAM 01/06/20 04/18/24 History release tamsulosin 0.4 mg capsule 0.4 mg PO 03/20/23 04/18/24 History albuterol sulfate 90 mcg/actuation 2 puff inhalation Q6H PRN Wheezing 04/09/24 04/18/24 History aerosol inhaler amlodipine 5 mg tablet 5 mg PO QAM 04/09/24 04/18/24 History calcitriol 0.25 mcg capsule 0 mcg PO DAILY 04/09/24 04/18/24 History citalopram 40 mg tablet 40 mg PO QAM 04/09/24 04/18/24 History fluticasone furoate 200 0 inh inhalation DAILY 04/09/24 04/18/24 History mcg-vilanterol 25 mcg/dose inhalation powder (Breo Ellipta) ondansetron HCl 4 mg tablet 4 mg PO Q8H PRN NAUSEA/VOMITING 04/09/24 04/18/24 History pantoprazole 20 mg tablet,delayed 20 mg PO QAM 04/09/24 04/18/24 History release sevelamer carbonate 800 mg tablet 2,400 mg PO TIDM 04/09/24 04/18/24 History sucroferric oxyhydroxide 500 mg 500 mg PO TIDM 04/09/24 04/18/24 History chewable tablet (Velphoro) vitamin B complex and vitamin C 1 cap PO DAILY 04/09/24 04/18/24 History no.20-folic acid 1 mg capsule sitagliptin phosphate 100 mg 100 mg PO DAILY 04/18/24 04/18/24 History tablet (Januvia) Patient History Medical History CHF (congestive heart failure) AV fistula left wrist Osteoarthritis Anxiety and depression Hypertension Surgical History SBO (small bowel obstruction) with surgical intervention History of esophagogastroduodenoscopy (EGD) History of colonoscopy History of cholecystectomy History of tooth extraction History of cataract surgery RT/LEFT History of procedure for peripheral vascular disease LEFT LEG (STENT PLACED) Cardiac murmur no cardio Family History Brother Cancer Social History Smoking Status: Current every day smoker Tobacco Type: Cigarettes Age Started Using Tobacco: 16; packs per day: 0.5; Cigarettes Per Day: 10; Second Hand Exposure: No; Do You Dip or Chew Tobacco: No; Hx Alcohol Use: No Hx Substance Use: No Preferred Language: Turkmen Communication Ability: Effective Visual Impairment: No Limitations Hearing Ability: Hard of Hearing Sack Cleaner Required: No Beliefs That Will Affect Care: None marital status: Single Current Living Situation: Alone Current Living Situation Comment: daughter helps with cooking and cleaning current occupational status: retired 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 Feels Safe at Home: Yes Diet: regular during the past year weight has: remained stable Assistive Devices: Walker Review of Systems As reviewed in HPI; a complete ROS was otherwise negative Physical Exam Vitals: as above (or see EMR) Exam limited due to constraints of telemedicine Gen/Constitutional: appears at stated age, NAD, nontoxic Head: AT, NC Eyes: sclera anicteric, no conjunctival injection ENT: MMM, trachea midline Card: appears to be well-perfused Resp: not tachypneic, nml effort, symmetric chest rise, no accessory muscle use Derm: no visible diaphoresis, no visible rash, no visible jaundice Results & Data Vital Signs (Past 12 Hours) Vital Signs Temp Pulse Pulse Resp BP Pulse Ox O2 Del Method 04/22/24 15:03 36.4 C L 58 L 15 149/67 H 96 Room Air 04/22/24 14:51 62 04/22/24 11:00 36.5 C 57 L 14 145/68 H 95 Room Air 04/22/24 07:20 36.5 C 63 15 175/74 H 94 Room Air 04/22/24 07:10 Room Air 04/22/24 07:04 65 04/22/24 04:22 36.6 C 56 L 20 180/72 H 98 Room Air Laboratory Results SEE EMR Diagnostic Findings [facility] [address] [place] [address] / Director: Chase Call M.D. Clinical Laboratory Report Name: FERNANDA FLORES Acct: [id number] Status: ADM IN : 1945 [facility] [place] Date: 04/18/24 Age: 79 Sex: M Dis Date: Loc: [address]/Bed: [facility] Spec: [id number] Collected: 04/17/24 Received: 04/17/[address]: Arpit Lehman MD Source: Blood OV Order: Ordered: Blood Culture Comments: Comment Default is separate sites, same time Procedure Result Verified Site Blood Culture Aerobic Final 04/19/24-1151 Organism 1 Alpha strep not S.pne/enteroco Sens No Sensitivities to Follow Blood Culture PCR Panel If viewing in EMR, results available under LAB Serology tab. One set of two positive. Isolation does not necessarily mean infection. No susceptibility tests performed. Contact microbiology laboratory ([phone]) if further studies are indicated. Tigered positive Blood Culture Gram Stain report to Teodora Brownlee on 04/18/24 at 1608 [place] [id number]. [place] [id number]. Blood Culture Anaerobic Final 04/19/24-115 Organism 1 Alpha strep not S.pne/enteroco Sens No Sensitivities to Follow Tigered positive Blood Culture Gram Stain report to Teodora Brownlee on 04/18/24 at 1609 [place] [id number]. [place] [id number]. Name: FERNANDA FLORES : 1945 PAGE 1 Printed: 04/22/24 4125 END OF REPORT
[2024-04-23 06:39] LABS: Hematocrit (blood only) 32.6 % (42.0-52.0); Hemoglobin 10.3 g/dl (14.0-18.0); Mean Corpuscular Hemoglobin 31.3 pg (25.0-34.0); Mean Corpuscular Hgb Conc 31.6 g/dL (32.0-36.0); Mean Corpuscular Volume 99.1 fL (80.0-100.0); Mean Platelet Volume 10.3 fL (9.4-12.4); Platelet Count 169 K/uL (130-400); RDW Coefficient of Variation 14.6 % (11.5-14.5); RDW Standard Deviation 53.7 fL (36.4-46.3); Red Blood Count 3.29 M/uL (4.70-6.10); White Blood Count 8.98 K/ul (4.8-10.8)
[2024-04-23 06:47] LABS: Calcium 9.8 mg/dl (8.6-10.3); Creatinine Clr Calc Pharmacy 6.9 ml/min; Est GFR (African American) 6.3 ml/min; Est GFR (Non-African American) 5.4 ml/min; Phosphorus 5.1 mg/dl (2.5-4.9); Potassium 3.8 mmol/L (3.5-5.1)
[2024-04-23] MEDS ORDERED: SODIUM CHLORIDE 0.9% 1,000 ML IV PRN (07:00)
[2024-04-23 09:25] LABS: Appearance Urine Clear (Clear); Bacteria Urine Automated None Seen (None Seen); Bilirubin Urine Negative (Negative); Blood Urine 1+ (Negative); Cast Urine Automated 0-2 /lpf (0-2); Color Urine Yellow; Epithelial Cell Urine Auto 0-2 /hpf (0-2); Glucose Urine UA 1+ (Negative); Ketones Urine Negative (Negative); Leukocyte Esterase Urine Negative (Negative); Nitrite Urine Negative (Negative); Protein Urine 2+ (Negative); RBC Urine Automated 0-2 /hpf (0-2); Specific Gravity Urine 1.009 (1.000-1.030); Urobilinogen Urine Negative (Negative); WBC Urine Automated 0-5 /hpf (0-5)
[2024-04-23] MEDS: HEPARIN SOD (PORCINE) 1000 UNIT/ML IV ONE (13:11)
[2024-04-23] MEDS: HEPARIN SOD (PORCINE) 1000 UNIT/ML IV SCH (13:11)
--- NOTE | 2024-04-23 13:40 | Communication Note ---
Date of Service: April 23, 2024 To clarify: ID will not be following this patient's labs after discharge nor will ID be managing ABX. Please arrange with the patient's PCP.
--- NOTE | 2024-04-23 13:53 | Dialysis Progress Note ---
Date of Service April 23, 2024 Assessment & Plan (1) ESRD (end stage renal disease) on dialysis: Plan: tolerating dialysis well today w/o issues. was having some liquid frequent diarrhea 04/18 which shortened the treatment time. stool studies negative; diarrhea resolved. Care coordinated w/ Dr Crabtree regarding dialysis and need for OP w/ HD abtx; we are in agreement. (2) Gram-positive bacteremia: Plan: waiting on identification and sensitivities from lab to determine final abtc choice; 6 wks of abtx recommended by ID d/t TAVR Admission and Anticipated Discharge Date Admission Date: April 18, 2024 Subjective seen on dialysis. no c/o f/c, n/v, poor po, sob, edema. eager for d/c home; does not report diarrhea to me Review of Systems 2 Review of Systems: All systems reviewed & are unremarkable except as noted in Subjective Physical Exam 2 Constitutional: well developed and well nourished Eyes: EOM intact bilaterally ENMT: Ears: no external ear abnormality Nose: no external nose abnormality Mouth: + dry oral mucous membranes ? slight facial edema Neck: no nuchal rigidity Respiratory: normal respiratory effort Auscultation: + diminished lung sounds Cardiovascular: Rate/Rhythm: regular rate and regular rhythm Extremities: + AV fistula (+ t/b); no edema Gastrointestinal (Abdomen): Inspection/Auscultation: normal bowel sounds P ercussion/Palpation: abdomen soft; abdomen nontender Musculoskeletal: Extremities: strength 5/5 throughout Skin: no rashes, warm and dry (some scabbed areas LLE but no obvious wound) Neurologic: albarran, fluent speech, no tremor Results & Data Vital Signs (Past 12 Hours) Vital Signs Temp Pulse Pulse Pulse Resp BP BP 04/23/24 12:30 57 L 146/66 H 04/23/24 12:00 57 L 134/61 04/23/24 11:30 57 L 131/65 04/23/24 11:00 57 L 140/68 04/23/24 10:40 61 165/76 H 04/23/24 10:20 36.6 C 67 04/23/24 08:00 04/23/24 07:26 36.4 C L 59 L 16 178/72 H 04/23/24 07:00 54 L 04/23/24 04:39 36.5 C 61 18 173/74 H 04/23/24 04:00 Pulse Ox Pulse Ox O2 Del Method O2 Del Method 04/23/24 12:30 04/23/24 12:00 04/23/24 11:30 04/23/24 11:00 04/23/24 10:40 04/23/24 10:20 04/23/24 08:00 Room Air 04/23/24 07:26 94 Room Air 04/23/24 07:00 04/23/24 04:39 95 Room Air 04/23/24 04:00 95 Room Air Laboratory Results 04/23/24 05:34 04/23/24 05:34
--- NOTE | 2024-04-23 15:56 | Hospitalist Progress Note ---
Date of Service April 23, 2024 Assessment & Plan (1) Gram-positive bacteremia: Plan: 1 out of 4 blood cultures positive for alpha strep to not stick to pneumoniae/enterococci Has been on intravenous cefepime and daptomycin Appreciate ID input and recommendation Awaiting final susceptibilities for finalization of the antibiotic and duration Likely to need IV antibiotic for 6 weeks in total PICC consent has been taken-discussed with the daughter (2) Severe sepsis: Plan: As above (3) Hyperglycemia due to type 2 diabetes mellitus: Plan: Blood sugar seems to be controlled Will continue with current regimen (4) ESRD (end stage renal disease) on dialysis: Plan: Continue hemodialysis per nephrology, Patient ready for discharge when outpatient antibiotics coordinated. PICC consent has been taken Plan Likely discharge in a day or 2 Admission and Anticipated Discharge Date Admission Date: April 18, 2024 Subjective 04/23/2024 The patient was seen and examined in medical telemetry unit He has been feeling much better and denies any significant symptoms Awaiting for final blood culture report before discharge Review of Systems Review of Systems: All systems reviewed and are unremarkable except as noted below Physical Exam Physical Exam: Lying in bed without any acute distress Constitutional: well developed and well nourished; not ill appearing Eyes: PERRL, conjunctivae normal, anicteric sclerae ENMT: external ear and nose normal, oropharynx normal Neck: trachea midline, no thyromegaly Respiratory: no respiratory distress Auscultation: lungs clear to auscultation bilaterally Cardiovascular: Rate/Rhythm: regular rate, regular rhythm and + bradycardic Heart Sounds: normal S1 and normal S2; no murmur Extremities: no edema Gastrointestinal (Abdomen): Inspection/Auscultation: normal bowel sounds; abdomen not distended Percussion/Palpation: abdomen soft; abdomen nontender Musculoskeletal: No acute arthritis involving any of the joint Neurologic: normal touch/pain/proprioception and moves all extremities; no focal motor deficits Psychiatric: A+Ox3, euthymic affect Lymphatic: no cervical or axillary lymphadenopathy Results & Data Results & Data Vital Signs (Past 12 Hours) Vital Signs Temp Pulse Pulse Pulse Resp BP BP 04/23/24 15:00 36.8 C 57 L 18 182/79 H 04/23/24 13:30 61 145/85 H 04/23/24 13:00 59 L 157/80 H 04/23/24 12:30 57 L 146/66 H 04/23/24 12:00 57 L 134/61 04/23/24 11:30 57 L 131/65 04/23/24 11:00 57 L 140/68 04/23/24 10:40 61 165/76 H 04/23/24 10:20 36.6 C 67 04/23/24 08:00 04/23/24 07:26 36.4 C L 59 L 16 178/72 H 04/23/24 07:00 54 L 04/23/24 04:39 36.5 C 61 18 173/74 H 04/23/24 04:00 Pulse Ox Pulse Ox O2 Del Method O2 Del Method 04/23/24 15:00 94 Room Air 04/23/24 13:30 04/23/24 13:00 04/23/24 12:30 04/23/24 12:00 04/23/24 11:30 04/23/24 11:00 04/23/24 10:40 04/23/24 10:20 04/23/24 08:00 Room Air 04/23/24 07:26 94 Room Air 04/23/24 07:00 04/23/24 04:39 95 Room Air 04/23/24 04:00 95 Room Air Laboratory Results Short CBC 04/23/24 Range/Units 05:34 WBC 8.98 (4.8-10.8) K/ul Hgb 10.3 L (14.0-18.0) g/dl Hct 32.6 L (42.0-52.0) % Plt Count 169 (130-400) K/uL BMP 04/23/24 05:34 Sodium 135 L Potassium 3.8 Chloride 97 L Carbon Dioxide 25 BUN 75 H Creatinine 8.35 H* Glucose 105 H Calcium 9.8 Urine 04/23/24 Range/Units 09:10 Urine Color Yellow Urine Appearance Clear (Clear) Urine pH 8.0 H (4.5-7.5) Ur Specific Le[place] 1.009 (1.000-1.030) Urine Protein 2+ H (Negative) Urine Glucose (UA) 1+ H (Negative) Medications Administered Current Inpatient Medications Albuterol (Albuterol Hfa 8 Gm Inhaler) 2 puffs INH Q6H PRN PRN Reason: Wheezing Stop: 05/19/24 11:00 Amlodipine Besylate (Amlodipine Besylate 5 Mg Tab) 10 mg PO QAM [facility] Stop: 05/21/24 08:59 Last Admin: 04/23/24 08:11 Dose: Not Given Aspirin (Aspirin 81 Mg Ectab) 81 mg PO QAM [facility] Stop: 05/18/24 08:59 Last Admin: 04/23/24 08:10 Dose: 81 mg Calcitriol (Calcitriol 0.25 Mcg Capsule) 0.25 mcg PO DAILY [facility] Stop: 05/18/24 08:59 Last Admin: 04/23/24 08:10 Dose: 0.25 mcg Javier Syrup (Javier Syrup 5 Ml Udp) 5 ml PO Q6 [facility]; Taper Stop: 06/09/24 17:59 Last Admin: 04/23/24 15:07 Dose: 5 ml Citalopram Hydrobromide (Citalopram 40 Mg Tab) 40 mg PO QAM [facility] Stop: 05/18/24 08:59 Last Admin: 04/23/24 08:10 Dose: 40 mg Dextrose (Dextrose 50% 50 Ml Syringe) 25 - 50 ml IV UD PRN; Protocol PRN Reason: Hypoglycemia Protocol Stop: 05/18/24 01:50 Finasteride (Finasteride 5 Mg Tab) 5 mg PO HS [facility] Stop: 05/18/24 20:59 Last Admin: 04/22/24 19:59 Dose: 5 mg Fluticasone/Vilanterol (Fluticasone/Vilanterol 200/25mcg 14 Puffs/Inhaler) 1 puffs INH DAILY [facility] Stop: 05/18/24 08:59 Last Admin: 04/23/24 08:10 Dose: 1 puffs Glucagon (Glucagon For Inj 1 Mg Vial) 1 mg SQ UD PRN; Protocol PRN Reason: Hypoglycemia Protocol Stop: 05/18/24 01:50 Glucose (Glucose 40% Gel 15 Gm Tube) 15 - 30 gm PO UD PRN; Protocol PRN Reason: Hypoglycemia Protocol Stop: 05/18/24 01:50 Glucose (Glucose 10 Tab/Tube) 4 - 8 tab PO UD PRN; Protocol PRN Reason: Hypoglycemia Treatment Stop: 05/18/24 01:50 Heparin Sodium (Porcine) (Heparin Sod 5,000 Unit/0.5 Ml Vial) 5,000 units SQ Q8 [facility] Stop: 05/18/24 05:59 Last Admin: 04/23/24 15:06 Dose: 5,000 units Daptomycin 450 mg/ Syringe 9 mls @ 4.5 mls/min IV Q48H [facility]; Protocol Stop: 05/04/24 01:59 Last Admin: 04/22/24 01:02 Dose: 4.5 mls/min Cefepime HCl 500 mg/ Syringe 5 mls @ 5 mls/min IV Q24H [facility]; Protocol Stop: 05/02/24 16:59 Last Admin: 04/22/24 17:06 Dose: 5 mls/min Insulin Aspart (Insulin Aspart Per Unit Charge) 0 units SC ACHS [facility] Stop: 05/18/24 01:50 Last Admin: 04/23/24 15:13 Dose: Not Given Insulin Glargine (Lantus Per Unit Charge) 5 units SQ DAILY [facility] Stop: 05/19/24 08:59 Last Admin: 04/23/24 09:16 Dose: 5 units Miscellaneous (Carbohydrates For Hypoglycemia ) 15 - 30 gm PO UD PRN PRN Reason: Hypoglycemia Protocol Stop: 05/18/24 01:50 Pantoprazole Sodium (Pantoprazole 40 Mg Tab) 40 mg PO QAM [facility] Stop: 05/18/24 08:59 Last Admin: 04/23/24 08:11 Dose: 40 mg Sevelamer Carbonate (Sevelamer Carbonate 800 Mg Tab) 2,400 mg PO TIDM [facility] Stop: 05/18/24 07:59 Last Admin: 04/23/24 15:08 Dose: 2,400 mg Sucroferric Oxyhydroxide (Sucroferric Oxyhydroxide 500 Mg Chew) 500 mg PO TIDM [facility] Stop: 05/20/24 07:59 Last Admin: 04/23/24 15:06 Dose: Not Given Tamsulosin HCl (Tamsulosin Hcl 0.4 Mg Cap) 0.4 mg PO HS [facility] Stop: 05/18/24 20:59 Last Admin: 04/22/24 19:59 Dose: 0.4 mg Vancomycin HCl (Vancomycin Hcl 125 Mg/2.5ml Soln) 125 mg PO Q6 [facility]; Taper Stop: 06/09/24 17:59 Last Admin: 04/23/24 15:08 Dose: 125 mg Vitamin B Complex/Folic Acid (Nephrocaps) 1 cap PO DAILY [facility] Stop: 05/18/24 08:59 Last Admin: 04/23/24 08:10 Dose: 1 cap
[2024-04-24] MEDS: amLODIPine BESYLATE 5 MG TAB PO ONE (06:34)
[2024-04-24 08:34] LABS: Hematocrit (blood only) 36.5 % (42.0-52.0); Hemoglobin 11.4 g/dl (14.0-18.0); Mean Corpuscular Hemoglobin 31.6 pg (25.0-34.0); Mean Corpuscular Hgb Conc 31.2 g/dL (32.0-36.0); Mean Corpuscular Volume 101.1 fL (80.0-100.0); Mean Platelet Volume 10.2 fL (9.4-12.4); Platelet Count 174 K/uL (130-400); RDW Coefficient of Variation 14.7 % (11.5-14.5); RDW Standard Deviation 54.9 fL (36.4-46.3); Red Blood Count 3.61 M/uL (4.70-6.10); White Blood Count 9.66 K/ul (4.8-10.8)
--- NOTE | 2024-04-24 12:19 | Nephrology Progress Note ---
Date of Service April 24, 2024 Assessment & Plan (1) ESRD (end stage renal disease) on dialysis: Plan: tolerating dialysis well in house w/o issues. was having some liquid frequent diarrhea 04/18 which shortened the treatment time. stool studies negative; diarrhea resolved. > next HD 04/25 and will be a bit more aggressive with fluid removal since diarrhea has resolved Care coordinated with Dr. Crabtree regarding giving antibiotics at dialysis and ongoing care. We are in agreement. (2) Gram-positive bacteremia: Plan: waiting on identification and sensitivities from lab to determine final abtc choice; 6 wks of abtx recommended by ID d/t TAVR -abtx to be given at HD; pls no PICC: I have discussed the likely need for IV antibiotics with the outpatient dialysis unit and they are working on getting a pump for delivery of these antibiotics during the last hour of dialysis; please do not discharge patient until possession of this pump is confirmed if needed. Admission and Anticipated Discharge Date Admission Date: April 18, 2024 Subjective No interval events clinically. Waiting on infectious diseases recommendations for antibiotic. Patient denies shortness of breath, nausea vomiting, fever chills, uncontrolled pain. Review of Systems 2 Review of Systems: All systems reviewed & are unremarkable except as noted in Subjective Physical Exam 2 Constitutional: well developed and well nourished; no acute distress Eyes: EOM intact bilaterally ENMT: Ears: no external ear abnormality Nose: no external nose abnormality Mouth: + dry oral mucous membranes Neck: no nuchal rigidity Respiratory: normal respiratory effort Auscultation: + diminished lung sounds Cardiovascular: Rate/Rhythm: regular rate and regular rhythm Extremities: + AV fistula (+ t/b); no edema Gastrointestinal (Abdomen): Inspection/Auscultation: normal bowel sounds P ercussion/Palpation: abdomen soft; abdomen nontender Musculoskeletal: Extremities: strength 5/5 throughout Skin: no rashes, warm and dry (some scabbed areas LLE but no obvious wound) Neurologic: Stable chronic cognitive impairment Results & Data Vital Signs (Past 12 Hours) Vital Signs Temp Pulse Pulse Resp BP Pulse Ox O2 Del Method 04/24/24 12:06 36.5 C 58 L 20 156/71 H 97 Room Air 04/24/24 07:29 52 L 04/24/24 07:28 36.6 C 57 L 18 171/72 H 94 Room Air 04/24/24 06:25 186/80 H 04/24/24 03:17 36.4 C L 57 L 16 185/64 H 96 Room Air Laboratory Results 04/24/24 08:20 04/23/24 05:34
--- NOTE | 2024-04-24 14:48 | Hospitalist Progress Note ---
Date of Service April 24, 2024 Assessment & Plan (1) Gram-positive bacteremia: Plan: 1 out of 4 blood cultures positive for alpha strep to not stick to pneumoniae/enterococci Has been on intravenous cefepime and daptomycin Appreciate ID input and recommendation Awaiting final susceptibilities for finalization of the antibiotic and duration Likely to need IV antibiotic for 6 weeks in total Final blood culture and susceptibilities are not back yet He will not require a PICC line on discharge-the dialysis catheter line can be used for IV antibiotic Likely discharge tomorrow following the final report of the blood culture (2) Severe sepsis: Plan: As above (3) Hyperglycemia due to type 2 diabetes mellitus: Plan: Blood sugar seems to be controlled Will continue with current regimen Blood sugar remains stable (4) ESRD (end stage renal disease) on dialysis: Plan: Continue hemodialysis per nephrology, Patient ready for discharge when outpatient antibiotics coordinated. He does not require a PICC line Plan Likely discharge in a day or 2 Admission and Anticipated Discharge Date Admission Date: April 18, 2024 Subjective 04/23/2024 The patient was seen and examined in medical telemetry unit He has been feeling much better and denies any significant symptoms Awaiting for final blood culture report before discharge 04/24/2024 The patient was seen and examined in medical telemetry unit He has been doing much better Awaiting for the final blood culture report before discharge Likely discharge tomorrow Review of Systems Review of Systems: All systems reviewed and are unremarkable except as noted below Physical Exam Physical Exam: Lying in bed without any acute distress Constitutional: well developed and well nourished; not ill appearing Eyes: PERRL, conjunctivae normal, anicteric sclerae ENMT: external ear and nose normal, oropharynx normal Neck: trachea midline, no thyromegaly Respiratory: no respiratory distress Auscultation: lungs clear to auscultation bilaterally Cardiovascular: Rate/Rhythm: regular rate, regular rhythm and + bradycardic Heart Sounds: normal S1 and normal S2; no murmur Extremities: no edema Gastrointestinal (Abdomen): Inspection/Auscultation: normal bowel sounds; abdomen not distended Percussion/Palpation: abdomen soft; abdomen nontender Musculoskeletal: No acute arthritis involving any of the joints Neurologic: normal touch/pain/proprioception and moves all extremities; no focal motor deficits Psychiatric: A+Ox3, euthymic affect Lymphatic: no cervical or axillary lymphadenopathy Results & Data Results & Data Vital Signs (Past 12 Hours) Vital Signs Temp Pulse Pulse Resp BP Pulse Ox O2 Del Method 04/24/24 12:06 36.5 C 58 L 20 156/71 H 97 Room Air 04/24/24 07:29 52 L 04/24/24 07:28 36.6 C 57 L 18 171/72 H 94 Room Air 04/24/24 06:25 186/80 H 04/24/24 03:17 36.4 C L 57 L 16 185/64 H 96 Room Air Laboratory Results Short CBC 04/24/24 Range/Units 08:20 WBC 9.66 (4.8-10.8) K/ul Hgb 11.4 L (14.0-18.0) g/dl Hct 36.5 L (42.0-52.0) % Plt Count 174 (130-400) K/uL Medications Administered Current Inpatient Medications Albuterol (Albuterol Hfa 8 Gm Inhaler) 2 puffs INH Q6H PRN PRN Reason: Wheezing Stop: 05/19/24 11:00 Amlodipine Besylate (Amlodipine Besylate 5 Mg Tab) 10 mg PO QAM [facility] Stop: 05/25/24 08:59 Aspirin (Aspirin 81 Mg Ectab) 81 mg PO QAM [facility] Stop: 05/18/24 08:59 Last Admin: 04/24/24 08:28 Dose: 81 mg Calcitriol (Calcitriol 0.25 Mcg Capsule) 0.25 mcg PO DAILY [facility] Stop: 05/18/24 08:59 Last Admin: 04/24/24 08:29 Dose: 0.25 mcg Javier Syrup (Javier Syrup 5 Ml Udp) 5 ml PO Q6 [facility]; Taper Stop: 06/09/24 17:59 Last Admin: 04/24/24 13:26 Dose: 5 ml Citalopram Hydrobromide (Citalopram 40 Mg Tab) 40 mg PO QAM [facility] Stop: 05/18/24 08:59 Last Admin: 04/24/24 08:28 Dose: 40 mg Dextrose (Dextrose 50% 50 Ml Syringe) 25 - 50 ml IV UD PRN; Protocol PRN Reason: Hypoglycemia Protocol Stop: 05/18/24 01:50 Finasteride (Finasteride 5 Mg Tab) 5 mg PO HS [facility] Stop: 05/18/24 20:59 Last Admin: 04/23/24 20:15 Dose: 5 mg Fluticasone/Vilanterol (Fluticasone/Vilanterol 200/25mcg 14 Puffs/Inhaler) 1 puffs INH DAILY [facility] Stop: 05/18/24 08:59 Last Admin: 04/24/24 08:27 Dose: 1 puffs Glucagon (Glucagon For Inj 1 Mg Vial) 1 mg SQ UD PRN; Protocol PRN Reason: Hypoglycemia Protocol Stop: 05/18/24 01:50 Glucose (Glucose 40% Gel 15 Gm Tube) 15 - 30 gm PO UD PRN; Protocol PRN Reason: Hypoglycemia Protocol Stop: 05/18/24 01:50 Glucose (Glucose 10 Tab/Tube) 4 - 8 tab PO UD PRN; Protocol PRN Reason: Hypoglycemia Treatment Stop: 05/18/24 01:50 Heparin Sodium (Porcine) (Heparin Sod 5,000 Unit/0.5 Ml Vial) 5,000 units SQ Q8 [facility] Stop: 05/18/24 05:59 Last Admin: 04/24/24 13:26 Dose: 5,000 units Daptomycin 450 mg/ Syringe 9 mls @ 4.5 mls/min IV Q48H [facility]; Protocol Stop: 05/04/24 01:59 Last Admin: 04/24/24 02:39 Dose: 4.5 mls/min Cefepime HCl 500 mg/ Syringe 5 mls @ 5 mls/min IV Q24H [facility]; Protocol Stop: 05/02/24 16:59 Last Admin: 04/23/24 17:30 Dose: 5 mls/min Insulin Aspart (Insulin Aspart Per Unit Charge) 0 units SC ACHS [facility] Stop: 05/18/24 01:50 Last Admin: 04/24/24 13:19 Dose: 7 units Insulin Glargine (Lantus Per Unit Charge) 5 units SQ DAILY [facility] Stop: 05/19/24 08:59 Last Admin: 04/24/24 08:35 Dose: 5 units Miscellaneous (Carbohydrates For Hypoglycemia ) 15 - 30 gm PO UD PRN PRN Reason: Hypoglycemia Protocol Stop: 05/18/24 01:50 Pantoprazole Sodium (Pantoprazole 40 Mg Tab) 40 mg PO QAM [facility] Stop: 05/18/24 08:59 Last Admin: 04/24/24 08:28 Dose: 40 mg Sevelamer Carbonate (Sevelamer Carbonate 800 Mg Tab) 2,400 mg PO TIDM [facility] Stop: 05/18/24 07:59 Last Admin: 04/24/24 13:22 Dose: 2,400 mg Sucroferric Oxyhydroxide (Sucroferric Oxyhydroxide 500 Mg Chew) 500 mg PO TIDM [facility] Stop: 05/20/24 07:59 Last Admin: 04/24/24 13:22 Dose: 500 mg Tamsulosin HCl (Tamsulosin Hcl 0.4 Mg Cap) 0.4 mg PO HS [facility] Stop: 05/18/24 20:59 Last Admin: 04/23/24 20:15 Dose: 0.4 mg Vancomycin HCl (Vancomycin Hcl 125 Mg/2.5ml Soln) 125 mg PO Q6 [facility]; Taper Stop: 06/09/24 17:59 Last Admin: 04/24/24 13:26 Dose: 125 mg Vitamin B Complex/Folic Acid (Nephrocaps) 1 cap PO DAILY [facility] Stop: 05/18/24 08:59 Last Admin: 04/24/24 08:28 Dose: 1 cap
[2024-04-25] MEDS: cloNIDine HCL 0.1 MG TAB PO ONE (02:19)
[2024-04-25] MEDS ORDERED: SODIUM CHLORIDE 0.9% 1,000 ML IV PRN (07:29)
[2024-04-25 07:43] LABS: BUN Creatinine Ratio 10.5 (10-20); Calcium 9.8 mg/dl (8.6-10.3); Creatinine Clr Calc Pharmacy 8.2 ml/min; Est GFR (African American) 7.7 ml/min; Est GFR (Non-African American) 6.6 ml/min; Potassium 4.7 mmol/L (3.5-5.1)
[2024-04-25] MEDS: HEPARIN SOD (PORCINE) 1000 UNIT/ML IV ONE (10:22)
[2024-04-25] MEDS: HEPARIN SOD (PORCINE) 1000 UNIT/ML IV SCH (11:19)
[2024-04-25] MEDS: amLODIPine BESYLATE 5 MG TAB PO SCH (16:02)
--- NOTE | 2024-04-25 16:16 | Hospitalist Progress Note ---
Date of Service April 25, 2024 Assessment & Plan (1) Gram-positive bacteremia: Plan: 1 out of 4 blood cultures positive for alpha strep to not stick to pneumoniae/enterococci Has been on intravenous cefepime and daptomycin Appreciate ID input and recommendation Awaiting final susceptibilities for finalization of the antibiotic and duration Likely to need IV antibiotic for 6 weeks in total Final blood culture and susceptibilities are not back yet He will not require a PICC line on discharge-the dialysis catheter line can be used for IV antibiotic Likely discharge tomorrow following the final report of the blood culture Discussed with ID on-call Reviewed TTE without any evidence of valvular vegetation but ALBERTO was not performed with history of TAVR Susceptibilities report on blood culture taken on 04/17/2024 Y reviewed with the ID Antibiotics were changed to ceftriaxone for a total of 6 weeks IV antibiotic Discussed with the pharmacist and ceftriaxone 2 g following each dialysis can be given and will be continued until 05/30/2024 Will need to have CBC and CMP weekly and report to Likely discharge tomorrow (2) Severe sepsis: Plan: As above (3) Hyperglycemia due to type 2 diabetes mellitus: Plan: Blood sugar seems to be controlled Will continue with current regimen Blood sugar remains stable (4) ESRD (end stage renal disease) on dialysis: Plan: Continue hemodialysis per nephrology, Patient ready for discharge when outpatient antibiotics coordinated. He does not require a PICC line Continue outpatient hemodialysis Plan Likely discharge in a day or 2 Admission and Anticipated Discharge Date Admission Date: April 18, 2024 Subjective 04/23/2024 The patient was seen and examined in medical telemetry unit He has been feeling much better and denies any significant symptoms Awaiting for final blood culture report before discharge 04/24/2024 The patient was seen and examined in medical telemetry unit He has been doing much better Awaiting for the final blood culture report before discharge Likely discharge tomorrow 04/25/2024 The patient was seen and examined in medical telemetry unit He has been feeling much better and denies any significant symptoms He has a dialysis today No fever and no chills and no other signs of ongoing infection Review of Systems Review of Systems: All systems reviewed and are unremarkable except as noted below Physical Exam Physical Exam: Lying in bed without any acute distress Constitutional: well developed and well nourished; not ill appearing Eyes: PERRL, conjunctivae normal, anicteric sclerae ENMT: external ear and nose normal, oropharynx normal Neck: trachea midline, no thyromegaly Respiratory: no respiratory distress Auscultation: lungs clear to auscultation bilaterally Cardiovascular: Rate/Rhythm: regular rate, regular rhythm and + bradycardic Heart Sounds: normal S1 and normal S2; no murmur Extremities: no edema Gastrointestinal (Abdomen): Inspection/Auscultation: normal bowel sounds; abdomen not distended Percussion/Palpation: abdomen soft; abdomen nontender Musculoskeletal: No acute arthritis involving any of the joints Neurologic: normal touch/pain/proprioception and moves all extremities; no focal motor deficits Psychiatric: A+Ox3, euthymic affect Lymphatic: no cervical or axillary lymphadenopathy Results & Data Results & Data Vital Signs (Past 12 Hours) Vital Signs Temp Pulse Pulse Pulse Resp BP BP 04/25/24 14:20 36.6 C 55 L 157/73 H 04/25/24 14:15 55 L 04/25/24 14:00 54 L 132/63 04/25/24 13:30 54 L 109/58 L 04/25/24 13:00 54 L 109/58 L 04/25/24 12:30 55 L 115/66 04/25/24 12:00 53 L 133/65 04/25/24 11:30 53 L 133/65 04/25/24 11:00 54 L 135/65 04/25/24 10:30 53 L 105/52 L 04/25/24 10:03 64 151/70 H 04/25/24 09:42 36.4 C L 54 L 04/25/24 08:00 57 L 04/25/24 07:21 36.4 C L 54 L 18 183/76 H Pulse Ox O2 Del Method 04/25/24 14:20 04/25/24 14:15 04/25/24 14:00 04/25/24 13:30 04/25/24 13:00 04/25/24 12:30 04/25/24 12:00 04/25/24 11:30 04/25/24 11:00 04/25/24 10:30 04/25/24 10:03 04/25/24 09:42 04/25/24 08:00 04/25/24 07:21 96 Room Air Laboratory Results BMP 04/25/24 06:53 Sodium 134 L Potassium 4.7 Chloride 97 L Carbon Dioxide 27 BUN 74 H Creatinine 7.07 H* Glucose 175 H Calcium 9.8 Medications Administered Current Inpatient Medications Albuterol (Albuterol Hfa 8 Gm Inhaler) 2 puffs INH Q6H PRN PRN Reason: Wheezing Stop: 05/19/24 11:00 Amlodipine Besylate (Amlodipine Besylate 5 Mg Tab) 10 mg PO QAM [facility] Stop: 05/25/24 08:59 Last Admin: 04/25/24 16:02 Dose: 10 mg Aspirin (Aspirin 81 Mg Ectab) 81 mg PO QAM [facility] Stop: 05/18/24 08:59 Last Admin: 04/25/24 08:32 Dose: 81 mg Calcitriol (Calcitriol 0.25 Mcg Capsule) 0.25 mcg PO DAILY [facility] Stop: 05/18/24 08:59 Last Admin: 04/25/24 08:32 Dose: 0.25 mcg Javier Syrup (Javier Syrup 5 Ml Udp) 5 ml PO Q6 [facility]; Taper Stop: 06/09/24 17:59 Last Admin: 04/25/24 16:05 Dose: Not Given Citalopram Hydrobromide (Citalopram 40 Mg Tab) 40 mg PO QAM [facility] Stop: 05/18/24 08:59 Last Admin: 04/25/24 08:32 Dose: 40 mg Dextrose (Dextrose 50% 50 Ml Syringe) 25 - 50 ml IV UD PRN; Protocol PRN Reason: Hypoglycemia Protocol Stop: 05/18/24 01:50 Finasteride (Finasteride 5 Mg Tab) 5 mg PO HS [facility] Stop: 05/18/24 20:59 Last Admin: 04/24/24 21:28 Dose: 5 mg Fluticasone/Vilanterol (Fluticasone/Vilanterol 200/25mcg 14 Puffs/Inhaler) 1 puffs INH DAILY [facility] Stop: 05/18/24 08:59 Last Admin: 04/25/24 08:33 Dose: 1 puffs Glucagon (Glucagon For Inj 1 Mg Vial) 1 mg SQ UD PRN; Protocol PRN Reason: Hypoglycemia Protocol Stop: 05/18/24 01:50 Glucose (Glucose 40% Gel 15 Gm Tube) 15 - 30 gm PO UD PRN; Protocol PRN Reason: Hypoglycemia Protocol Stop: 05/18/24 01:50 Glucose (Glucose 10 Tab/Tube) 4 - 8 tab PO UD PRN; Protocol PRN Reason: Hypoglycemia Treatment Stop: 05/18/24 01:50 Heparin Sodium (Porcine) (Heparin Sod 5,000 Unit/0.5 Ml Vial) 5,000 units SQ Q8 [facility] Stop: 05/18/24 05:59 Last Admin: 04/25/24 16:05 Dose: 5,000 units Daptomycin 450 mg/ Syringe 9 mls @ 4.5 mls/min IV Q48H [facility]; Protocol Stop: 05/04/24 01:59 Last Admin: 04/24/24 02:39 Dose: 4.5 mls/min Cefepime HCl 500 mg/ Syringe 5 mls @ 5 mls/min IV Q24H [facility]; Protocol Stop: 05/02/24 16:59 Last Admin: 04/24/24 18:16 Dose: 5 mls/min Insulin Aspart (Insulin Aspart Per Unit Charge) 0 units SC ACHS [facility] Stop: 05/18/24 01:50 Last Admin: 04/25/24 16:04 Dose: Not Given Insulin Glargine (Lantus Per Unit Charge) 5 units SQ DAILY [facility] Stop: 05/19/24 08:59 Last Admin: 04/25/24 11:20 Dose: Not Given Miscellaneous (Carbohydrates For Hypoglycemia ) 15 - 30 gm PO UD PRN PRN Reason: Hypoglycemia Protocol Stop: 05/18/24 01:50 Pantoprazole Sodium (Pantoprazole 40 Mg Tab) 40 mg PO QAM [facility] Stop: 05/18/24 08:59 Last Admin: 04/25/24 08:33 Dose: 40 mg Sevelamer Carbonate (Sevelamer Carbonate 800 Mg Tab) 2,400 mg PO TIDM [facility] Stop: 05/18/24 07:59 Last Admin: 04/25/24 16:06 Dose: 2,400 mg Sucroferric Oxyhydroxide (Sucroferric Oxyhydroxide 500 Mg Chew) 500 mg PO TIDM [facility] Stop: 05/20/24 07:59 Last Admin: 04/25/24 16:07 Dose: 500 mg Tamsulosin HCl (Tamsulosin Hcl 0.4 Mg Cap) 0.4 mg PO HS [facility] Stop: 05/18/24 20:59 Last Admin: 04/24/24 21:28 Dose: 0.4 mg Vancomycin HCl (Vancomycin Hcl 125 Mg/2.5ml Soln) 125 mg PO Q6 [facility]; Taper Stop: 06/09/24 17:59 Last Admin: 04/25/24 16:05 Dose: Not Given Vitamin B Complex/Folic Acid (Nephrocaps) 1 cap PO DAILY [facility] Stop: 05/18/24 08:59 Last Admin: 04/25/24 08:33 Dose: 1 cap
--- NOTE | 2024-04-25 17:42 | Nephrology Progress Note ---
Date of Service April 25, 2024 Assessment & Plan (1) ESRD (end stage renal disease) on dialysis: Plan: tolerating dialysis well in house w/o issues. was having some liquid frequent diarrhea 04/18 which shortened the treatment time. stool studies negative; diarrhea resolved. > next HD 04/28 and will be a bit more aggressive with fluid removal since diarrhea has resolved Care coordinated with Dr. Crabtree regarding giving antibiotics at dialysis, OP f/u of these abtx, goals of care. We are in agreement. (2) Gram-positive bacteremia: Plan: waiting on identification and sensitivities from lab to determine final abtc choice>> Streptococcemia; 6 wks of abtx recommended by ID d/t TAVR >> ceftriaxone IV 2 g with dialysis through May 30 -abtx to be given at HD during last hour of treatment Confirmed with outpatient unit that they have a IV pump available for delivery of antibiotics for this patient Confirmed that PCP to manage any follow-up labs needed for management of these antibiotics Very important that he establish with his new cardiology care team the [facility]; patient changed physicians due to insurance coverage change; he has had minimal follow-up since TAVR placement at least 2 years back despite now 2 rounds of bacteremia Admission and Anticipated Discharge Date Admission Date: April 18, 2024 Subjective Tolerated dialysis well today with 2.6 L UF denies nausea vomiting lightheadedness shortness of breath. Review of Systems 2 Review of Systems: All systems reviewed & are unremarkable except as noted in Subjective Physical Exam 2 Constitutional: well developed, well nourished, + frail appearing and cooperative; no acute distress Eyes: EOM intact bilaterally ENMT: Ears: + hearing impairment; no external ear abnormality Nose: no external nose abnormality Mouth: + dry oral mucous membranes Neck: no nuchal rigidity Respiratory: normal respiratory effort Auscultation: + diminished lung sounds Cardiovascular: Rate/Rhythm: regular rate and regular rhythm Extremities: + AV fistula; no edema Gastrointestinal (Abdomen): Inspection/Auscultation: normal bowel sounds P ercussion/Palpation: abdomen soft; abdomen nontender Musculoskeletal: Extremities: strength 5/5 throughout Skin: no rashes, warm and dry Neurologic: albarran, fluent speech, no tremor; stable chronic mild cognitive impairment Results & Data Vital Signs (Past 12 Hours) Vital Signs Temp Pulse Pulse Pulse Resp BP BP 04/25/24 16:40 36.8 C 58 L 16 170/66 H 04/25/24 14:20 36.6 C 55 L 157/73 H 04/25/24 14:15 55 L 04/25/24 14:00 54 L 132/63 04/25/24 13:30 54 L 109/58 L 04/25/24 13:00 54 L 109/58 L 04/25/24 12:30 55 L 115/66 04/25/24 12:00 53 L 133/65 04/25/24 11:30 53 L 133/65 04/25/24 11:00 54 L 135/65 04/25/24 10:30 53 L 105/52 L 04/25/24 10:03 64 151/70 H 04/25/24 09:42 36.4 C L 54 L 04/25/24 08:00 57 L 04/25/24 07:21 36.4 C L 54 L 18 183/76 H Pulse Ox O2 Del Method 04/25/24 16:40 95 Room Air 04/25/24 14:20 04/25/24 14:15 04/25/24 14:00 04/25/24 13:30 04/25/24 13:00 04/25/24 12:30 04/25/24 12:00 04/25/24 11:30 04/25/24 11:00 04/25/24 10:30 04/25/24 10:03 04/25/24 09:42 04/25/24 08:00 04/25/24 07:21 96 Room Air Laboratory Results 04/24/24 08:20 04/25/24 06:53
--- NOTE | 2024-04-26 09:03 | Hospitalist Progress Note ---
Date of Service April 26, 2024 Assessment & Plan (1) Gram-positive bacteremia: Plan: 1 out of 4 blood cultures positive for alpha strep to not stick to pneumoniae/enterococci Has been on intravenous cefepime and daptomycin Appreciate ID input and recommendation Awaiting final susceptibilities for finalization of the antibiotic and duration Likely to need IV antibiotic for 6 weeks in total Final blood culture and susceptibilities are not back yet He will not require a PICC line on discharge-the dialysis catheter line can be used for IV antibiotic Likely discharge tomorrow following the final report of the blood culture Remains medically stable without any symptoms and will be discharged this morning Discussed with ID on-call Reviewed TTE without any evidence of valvular vegetation but ALBERTO was not performed with history of TAVR Susceptibilities report on blood culture taken on 04/17/2024 Y reviewed with the ID Antibiotics were changed to ceftriaxone for a total of 6 weeks IV antibiotic Discussed with the pharmacist and ceftriaxone 2 g following each dialysis can be given and will be continued until 05/30/2024 Will need to have CBC and CMP weekly and report to Likely discharge tomorrow He will a first dose of ceftriaxone 2 g IV today (2) Severe sepsis: Plan: As above (3) Hyperglycemia due to type 2 diabetes mellitus: Plan: DM2 diet-controlled, patient hyperglycemic the last few weeks at home, well- controlled as of recent hemoglobin A1c of 5.7 last year Repeat hemoglobin A1c on 613 or 6.4 Blood sugar seems to be controlled Will continue with current regimen Blood sugar remains stable-his Jardiance has to be decreased to 25 mg orally as per the dietitian (4) ESRD (end stage renal disease) on dialysis: Plan: Continue hemodialysis per nephrology, Patient ready for discharge when outpatient antibiotics coordinated. He does not require a PICC line Continue outpatient hemodialysis-dialysis is done on Sunday and Sunday and will be continued as usual as an outpatient Plan His other significant medical conditions remained stable as below: Chronic diastolic heart failure (EF 60-65%, TTE 2022), patient euvolemic to dry CAD/PVD as per records COPD, baseline lung symptoms Hypertension, stable Hyperlipidemia, on statin Rx Chronic anemia, hemoglobin at baseline Ongoing tobacco abuse Likely discharge in a day or 2 Will be discharged this morning Admission and Anticipated Discharge Date Admission Date: April 18, 2024 Subjective 04/23/2024 The patient was seen and examined in medical telemetry unit He has been feeling much better and denies any significant symptoms Awaiting for final blood culture report before discharge 04/24/2024 The patient was seen and examined in medical telemetry unit He has been doing much better Awaiting for the final blood culture report before discharge Likely discharge tomorrow 04/25/2024 The patient was seen and examined in medical telemetry unit He has been feeling much better and denies any significant symptoms He has a dialysis today No fever and no chills and no other signs of ongoing infection 04/26/2024 The patient was seen and examined in medical telemetry unit He has been stable and will be discharged home this morning Denies any significant symptoms No fever and no chills Review of Systems Review of Systems: All systems reviewed and are unremarkable except as noted below Physical Exam Physical Exam: Lying in bed without any acute distress Constitutional: well developed and well nourished; not ill appearing Eyes: PERRL, conjunctivae normal, anicteric sclerae ENMT: external ear and nose normal, oropharynx normal Neck: trachea midline, no thyromegaly Respiratory: no respiratory distress Auscultation: lungs clear to auscultation bilaterally Cardiovascular: Rate/Rhythm: regular rate, regular rhythm and + bradycardic Heart Sounds: normal S1 and normal S2; no murmur Extremities: no edema Gastrointestinal (Abdomen): Inspection/Auscultation: normal bowel sounds; abdomen not distended Percussion/Palpation: abdomen soft; abdomen nontender Musculoskeletal: No acute arthritis involving any of the joints Neurologic: normal touch/pain/proprioception and moves all extremities; no focal motor deficits Psychiatric: A+Ox3, euthymic affect Lymphatic: no cervical or axillary lymphadenopathy Results & Data Results & Data Vital Signs (Past 12 Hours) Vital Signs Temp Pulse Pulse Resp BP Pulse Ox O2 Del Method 04/26/24 07:10 54 L 04/26/24 03:24 36.5 C 64 18 177/81 H 95 Room Air 04/25/24 23:37 36.7 C 66 18 153/68 H 97 Room Air 04/25/24 23:24 59 L 04/25/24 22:27 Room Air 04/25/24 21:31 136/63 Medications Administered Current Inpatient Medications Albuterol (Albuterol Hfa 8 Gm Inhaler) 2 puffs INH Q6H PRN PRN Reason: Wheezing Stop: 05/19/24 11:00 Amlodipine Besylate (Amlodipine Besylate 5 Mg Tab) 10 mg PO QAM RANDY Stop: 05/25/24 08:59 Last Admin: 04/25/24 16:02 Dose: 10 mg Aspirin (Aspirin 81 Mg Ectab) 81 mg PO QAM RANDY Stop: 05/18/24 08:59 Last Admin: 04/25/24 08:32 Dose: 81 mg Calcitriol (Calcitriol 0.25 Mcg Capsule) 0.25 mcg PO DAILY RANDY Stop: 05/18/24 08:59 Last Admin: 04/25/24 08:32 Dose: 0.25 mcg Javier Syrup (Javier Syrup 5 Ml Udp) 5 ml PO Q6 RANDY; Taper Stop: 06/09/24 17:59 Last Admin: 04/26/24 06:02 Dose: 5 ml Citalopram Hydrobromide (Citalopram 40 Mg Tab) 40 mg PO QAM RANDY Stop: 05/18/24 08:59 Last Admin: 04/25/24 08:32 Dose: 40 mg Dextrose (Dextrose 50% 50 Ml Syringe) 25 - 50 ml IV UD PRN; Protocol PRN Reason: Hypoglycemia Protocol Stop: 05/18/24 01:50 Finasteride (Finasteride 5 Mg Tab) 5 mg PO HS [facility] Stop: 05/18/24 20:59 Last Admin: 04/25/24 21:05 Dose: 5 mg Fluticasone/Vilanterol (Fluticasone/Vilanterol 200/25mcg 14 Puffs/Inhaler) 1 puffs INH DAILY RANDY Stop: 05/18/24 08:59 Last Admin: 04/25/24 08:33 Dose: 1 puffs Glucagon (Glucagon For Inj 1 Mg Vial) 1 mg SQ UD PRN; Protocol PRN Reason: Hypoglycemia Protocol Stop: 05/18/24 01:50 Glucose (Glucose 40% Gel 15 Gm Tube) 15 - 30 gm PO UD PRN; Protocol PRN Reason: Hypoglycemia Protocol Stop: 05/18/24 01:50 Glucose (Glucose 10 Tab/Tube) 4 - 8 tab PO UD PRN; Protocol PRN Reason: Hypoglycemia Treatment Stop: 05/18/24 01:50 Heparin Sodium (Porcine) (Heparin Sod 5,000 Unit/0.5 Ml Vial) 5,000 units SQ Q8 RANDY Stop: 05/18/24 05:59 Last Admin: 04/26/24 06:02 Dose: 5,000 units Ceftriaxone Sodium (Rocephin) 2,000 mg in 50 mls @ 100 mls/hr IV NOW STA Stop: 04/26/24 09:24 Insulin Aspart (Insulin Aspart Per Unit Charge) 0 units SC ACHS RANDY Stop: 05/18/24 01:50 Last Admin: 04/25/24 20:35 Dose: Not Given Insulin Glargine (Lantus Per Unit Charge) 5 units SQ DAILY RANDY Stop: 05/19/24 08:59 Last Admin: 04/25/24 11:20 Dose: Not Given Miscellaneous (Carbohydrates For Hypoglycemia ) 15 - 30 gm PO UD PRN PRN Reason: Hypoglycemia Protocol Stop: 05/18/24 01:50 Pantoprazole Sodium (Pantoprazole 40 Mg Tab) 40 mg PO QAM RANDY Stop: 05/18/24 08:59 Last Admin: 04/25/24 08:33 Dose: 40 mg Sevelamer Carbonate (Sevelamer Carbonate 800 Mg Tab) 2,400 mg PO TIDM RANDY Stop: 05/18/24 07:59 Last Admin: 04/25/24 16:06 Dose: 2,400 mg Sucroferric Oxyhydroxide (Sucroferric Oxyhydroxide 500 Mg Chew) 500 mg PO TIDM RANDY Stop: 05/20/24 07:59 Last Admin: 04/25/24 16:07 Dose: 500 mg Tamsulosin HCl (Tamsulosin Hcl 0.4 Mg Cap) 0.4 mg PO HS RANDY Stop: 05/18/24 20:59 Last Admin: 04/25/24 21:05 Dose: 0.4 mg Vancomycin HCl (Vancomycin Hcl 125 Mg/2.5ml Soln) 125 mg PO Q6 RANDY; Taper Stop: 06/09/24 17:59 Last Admin: 04/26/24 06:02 Dose: 125 mg Vitamin B Complex/Folic Acid (Nephrocaps) 1 cap PO DAILY RANDY Stop: 05/18/24 08:59 Last Admin: 04/25/24 08:33 Dose: 1 cap
[2024-04-26] MEDS: cefTRIAXone SODIUM 2,000 MG/50 ML BAG IV STA (09:25)
--- NOTE | 2024-04-27 08:37 | Discharge Summary ---
Date of Service April 27, 2024 Admission HPI Per Admitting Provider History obtained from patient and records. Medical history is significant for chronic diastolic heart failure (EF 60-65%, TTE 2022), status post TAVR, CAD/PVD as per records, COPD, hypertension, hyperlipidemia, DM2 diet-controlled, ESRD on HD, BPH, chronic hyponatremia, chronic anemia (baseline hemoglobin 11-12 ), hx C. difficile colitis, history Enterococcus bacteremia, anxiety/mood disorder, ongoing tobacco abuse Last confinement August 2023 for Enterococcus bacteremia of unclear source or origin. No obvious valvular vegetations on TTE. ID recommended 6 weeks course IV daptomycin. Unable to follow-up with ID outpatient. Patient seen at the ER on 2 occasions last week for high sugars at home. Patient discharged home on both occasions. Patient daughter had reached out to PCP about restarting Januvia. Patient felt shaky at home last night. Blood sugars 300-500. Usual cough, SOB symptoms. No headache, no chest pain. No abdominal pain or diarrhea No new wounds as per patient. Cefepime administered at the ER. MEDICAL HISTORY: As above. SURGERIES: He has had a cholecystectomy, but ocular procedures, ex lap, enterolysis, TAVR, vascular procedures FAMILY HISTORY: Diabetes. PERSONAL AND SOCIAL HISTORY: Half pack daily. 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 Admission Exam Per Admitting Provider Physical Exam: GENERAL: Comfortable, slightly hard of hearing, pleasant, no respiratory distress SKIN: Pallor, warm HEENT: Pale palpebral conjunctivae, no ptosis, dry buccal mucosa NECK : Supple, no tenderness CHEST : Decreased breath sounds, occasional expiratory wheezes, no tenderness HEART : RRR, no obvious murmurs ABDOMEN: Some distention, no tenderness EXTREMITIES : No LE swelling/tenderness, no other conspicuous deformities noted NEUROLOGIC : Oriented to place,, no facial asymmetry, slightly hard of hearing,, gait and stance not assessed Principal Diagnosis Sepsis secondary to streptococcal bacteremia, end-stage renal disease on hemodialysis, type 2 diabetes Discharge Exam Lying in bed without any acute distress Constitutional well developed and well nourished; not ill appearing Eyes PERRL, conjunctivae normal, anicteric sclerae ENMT external ear and nose normal, oropharynx normal Neck trachea midline, no thyromegaly Respiratory no respiratory distress Auscultation: lungs clear to auscultation bilaterally Cardiovascular Rate/Rhythm: regular rate, regular rhythm and + bradycardic Heart Sounds: normal S1 and normal S2; no murmur Extremities: no edema Gastrointestinal (Abdomen) Inspection/Auscultation: normal bowel sounds; abdomen not distended Percussion/Palpation: abdomen soft; abdomen nontender Neurologic normal touch/pain/proprioception and moves all extremities; no focal motor deficits Psychiatric A+Ox3, euthymic affect Lymphatic no cervical or axillary lymphadenopathy Discharge Data Allergies Allergy/AdvReac Type Severity Reaction Status Date / Time No Known Allergies Allergy Verified 04/09/24 23:35 Consultations 04/18/24 00:00 ED Decision to Admit Stat 04/18/24 01:51 Consult Nephrology Routine 04/18/24 13:06 Consult Infectious Diseases Routine 04/19/24 11:00 Consult Infectious Diseases Routine Ordered Studies 04/18/24 16:29 CT abd pelvis wo con Routine CT chest without contrast [CT chest diagnostic wo con] Routine Hospital Course (1) Gram-positive bacteremia: 1 out of 4 blood cultures positive for alpha strep to not stick to pneumoniae/enterococci Has been on intravenous cefepime and daptomycin Appreciate ID input and recommendation Awaiting final susceptibilities for finalization of the antibiotic and duration Likely to need IV antibiotic for 6 weeks in total Final blood culture and susceptibilities are not back yet He will not require a PICC line on discharge-the dialysis catheter line can be used for IV antibiotic Likely discharge tomorrow following the final report of the blood culture Remains medically stable without any symptoms and will be discharged this morning Discussed with ID on-call Reviewed TTE without any evidence of valvular vegetation but ALBERTO was not performed with history of TAVR Susceptibilities report on blood culture taken on 04/17/2024 Y reviewed with the ID Antibiotics were changed to ceftriaxone for a total of 6 weeks IV antibiotic Discussed with the pharmacist and ceftriaxone 2 g following each dialysis can be given and will be continued until 05/30/2024 Will need to have CBC and CMP weekly and report to Likely discharge tomorrow He will a first dose of ceftriaxone 2 g IV today (2) Severe sepsis: As above (3) Hyperglycemia due to type 2 diabetes mellitus: DM2 diet-controlled, patient hyperglycemic the last few weeks at home, well- controlled as of recent hemoglobin A1c of 5.7 last year Repeat hemoglobin A1c on 613 or 6.4 Blood sugar seems to be controlled Will continue with current regimen Blood sugar remains stable-his Jardiance has to be decreased to 25 mg orally as per the dietitian (4) ESRD (end stage renal disease) on dialysis: Continue hemodialysis per nephrology, Patient ready for discharge when outpatient antibiotics coordinated. He does not require a PICC line Continue outpatient hemodialysis-dialysis is done on Sunday and Sunday and will be continued as usual as an outpatient Plan His other significant medical conditions remained stable as below: Chronic diastolic heart failure (EF 60-65%, TTE 2022), patient euvolemic to dry CAD/PVD as per records COPD, baseline lung symptoms Hypertension, stable Hyperlipidemia, on statin Rx Chronic anemia, hemoglobin at baseline Ongoing tobacco abuse Likely discharge in a day or 2 Will be discharged this morning Total Time Total Time Spent Total Time Spent (In Minutes): 35 minutes Discharge Plan Discharge Items Patient Disposition: Home - Home Health Services Reason For Visit: HTN URG, SEPSIS Discharge Diagnosis: Sepsis secondary to streptococcal bacteremia, end-stage renal disease on hemodialysis, type 2 diabetes Condition on Discharge: Fair Activity: Resume your previous activity Non-emergency contact: Primary Care Provider Call non-emergency contact if: you have any medication questions and your symptoms worsen Follow-up/Referrals: Sampson Jimenez [Primary Care Provider] - (Dr Jimenez's office will contact you for a follow up appointment. ) Diet: Carb Consistent or DM2 and Dialysis Renal Ambulatory Orders: Complete Blood Count with Diff (Routine) Timeframe: 4 Weeks Location: Determined by Patient Ordered By: Sue Crabtree Comprehensive Metabolic Panel (Routine) Timeframe: 4 Weeks Location: Determined by Patient Ordered By: Sue Crabtree Addtl Attending Provider Instructions: Please take precautions to avoid fall Finish the course of antibiotic as advised You need to have CBC and CMP done every week until you finish the course of antibiotic on May 30, 2024 Your Januvia needs to be decreased to 25 mg once daily to avoid complication Your amlodipine has been increased to 10 mg daily Continue with hemodialysis as planned Please keep appointment with your healthcare provider Pending Studies at Discharge: No Stand-Alone Forms: [employer], Smoking Cessation Medications and DC Order Prescriptions: New vancomycin 125 mg capsule 125 mg PO DAILY Qty: 30 0RF Rx Instructions: take 125 mg 4 times per day for 10 days; 2 times per day for 7 days; once daily for 7 days; once every 2-3 days for 2-8 weeks Januvia 25 mg tablet 25 mg PO DAILY Qty: 30 0RF ceftriaxone 2 gram recon soln 2 g IV DAILY Qty: 10 0RF Rx Instructions: After each dialysis until 05/30/2024 Continued atorvastatin 40 mg Tablet 40 mg PO QAM finasteride 5 mg Tablet 5 mg PO HS cholecalciferol (vitamin D3) [Vitamin D3] 1,000 unit (25 mcg) Tablet 1,000 unit PO QAM Rx Instructions: Unable to verify OTC meds at this date/time. aspirin 81 mg Tablet,Delayed Release (Dr/Ec) 81 mg PO QAM Rx Instructions: Unable to verify OTC meds at this date/time. tamsulosin 0.4 mg capsule 0.4 mg PO HS citalopram 40 mg tablet 40 mg PO QAM ondansetron HCl 4 mg tablet 4 mg PO Q8H PRN (Reason: NAUSEA/VOMITING) Rx Instructions: Unable to verify medication at this date/time. pantoprazole 20 mg tablet,delayed release (DR/EC) 20 mg PO QAM B complex with C 20-folic acid 1 mg Capsule 1 cap PO DAILY Rx Instructions: Unable to verify medication at this date/time. albuterol sulfate 90 mcg/actuation HFA aerosol inhaler 2 puff INHALATION Q6H PRN (Reason: Wheezing) calcitriol 0.25 mcg Capsule 0 mcg PO DAILY Rx Instructions: Unable to verify medication at this date/time. Original Directions: 0.25mcg po daily sevelamer carbonate 800 mg tablet 2,400 mg PO TIDM Rx Instructions: Take 2400mg with meals and 1600mg with snacks Velphoro 500 mg tablet,chewable 500 mg PO TIDM fluticasone furoate-vilanterol [Breo Ellipta] 200-25 mcg/dose Blister With Device 0 inh INHALATION DAILY Rx Instructions: Unable to verify medication at this date/time. Original Directions: 1 puff daily Changed amlodipine 5 mg tablet 10 mg PO QAM Qty: 0 0RF Discontinued Januvia 100 mg tablet 100 mg PO DAILY Discharge Orders: Discharge Order (Routine); Ordered 04/26/24 Ordered By: Sue Crabtree Admission Data Admit Date/Time: 04/18/24 00:26 Attending Provider: Leyda,Manabendra Admit Provider: Rian Whaley Primary Care Provider: Sampson Jimenez Other Providers: Rian Whaley; Helen Horta; Pro Ortiz; Leandra Candelaria; Dickson Espinoza; Alexandra Jonas; Amado Toledo; Ry Singh; Osvaldo Story I.; Frantz Garner II; Alexandra Bills; Sher Carolina; Ronnell Cornell; Annabelle Matos; Daquan Carolina; Amee,Kiersten Other Interventions: Discharge Summary Assessment (RN) Last Done: 04/26/24 09:55
== END 2024-04-26 11:08 | disposition home health service (06) | DRG 871 ==
LOC: ED 22:52 → EDINP 04-18 00:26 → SUATTDRO 04-18 00:26 → 2W 04-18 02:07

== ENCOUNTER 2024-09-24 18:52 | Inpatient (IN) ==
--- NOTE | 2024-09-24 19:20 | Emergency Department Note ---
Impression & Plan Acute dyspnea, ESRD on dialysis, Non-ST elevation VT (NSTEMI), Pulmonary vascular congestion ED Provider Note HISTORY OF PRESENT ILLNESS: Patient is an 79-year-old male presenting with shortness of breath. Patient reports that he has been short of breath for the last week, but family noted increasing in the last 3 days. He is an ESRD dialysis patient and receives dialysis Sunday/Sunday/Sunday. He reportedly received a whole dialysis session today. However, he reportedly became short of breath and hypoxic during dialysis and he was placed on supplemental oxygen. He reportedly was able to be weaned off and went home and was feeling better after his dialysis session. However, at home he became short of breath again and family called 911. On EMS arrival, the patient was found to be borderline hypoxic at 89 to 90%. He also reportedly sounded wheezy and was given a DuoNeb treatment and 40 mg of IV Solu- Medrol in route. On arrival to the ER, the patient reports he feels well. Denies any chest pain. Reports shortness of breath with minimal exertion over the last week. Denies any fevers. Denies any recent sick contact exposures. Denies any DVT or PE history. ROS: as above PHYSICAL EXAM: Constitutional: Patient appears in no acute distress. HENT: Head: Normocephalic and atraumatic. Eyes: EOMI, PERRL Mouth/Throat: Mucous membranes moist. Neck: Trachea midline. Neck supple. Cardiovascular: RRR, No murmurs, rubs or gallops. Intact distal pulses. Pulmonary/Chest: No respiratory distress. Breath sounds clear and equal bilaterally. No wheezes or rales. Abdominal: Abdomen soft, no tenderness, rebound or guarding. Musculoskeletal: No edema, tenderness or deformity noted. Dialysis graft AV fistula in the left AC with palpable thrill Skin: Warm and dry. No rash, erythema, pallor or cyanosis Psychiatric: Appropriate mood and affect for situation. Neurological: Alert and keenly responsive. CN II-XII grossly intact, moving all extremities equally and fully. MDM: - Vitals signs showed hypertension - History obtained via patient. History as above. - Chronic conditions affecting care: CHF; ESRD on HD; HTN; HLD; DM-2 - Differential diagnoses include, but are not limited to: Congestive heart failure; acute coronary syndrome; COPD/asthma exacerbation; pulmonary edema; pulmonary embolism; pneumonia; pneumothorax; viral syndrome - Order placed for continuous cardiac monitoring. At this time, monitor showed rate of 84 bpm with normal sinus rhythm, per my interpretation. - External medical records reviewed. Wound visit dated 09/11/2024 was reviewed. Patient has a diabetic foot ulcer on his right great toe. He was scheduled for an MRI in 09/18/2024. - EKG interpreted by myself showed normal sinus rhythm. Rate 74 bpm. QT 506. No acute ischemic changes. Noted to have a bifascicular block - Laboratory workup interpreted by myself showed leukocytosis (WBC 12.85); chronic anemia (Hgb 9.8); normal PT/INR; stable electrolytes; ESRD (Cr 2.93); elevated troponin (57.7); elevated BNP (1070) - VBG grossly unremarkable - Viral respiratory panel negative - CXR shows pulmonary vascular congestion, per my interpretation. Radiology notes interstitial thickening concerning for chronic interstitial disease and also notes trace pleural effusions. - Patient's saturations were stable on room air. However, after ambulation he had saturations in the low 90s and seemed very tachypneic. - Patient's shortness of breath may be multifactorial in etiology. He reportedly had significant wheezing and hypoxia with EMS prehospital but is improved after breathing treatment and steroids, so COPD exacerbation may be confounded by his fluid overload status. - Discussion was had with mental health case manager about patient's case and need for admission - Hospitalist consulted for admission - [facility] ASSESSMENT AND PLAN: Diagnosis: acute dyspnea; pulmonary vascular congestion; NSTEMI; ESRD on HD Plan: admit Past Med/Surg History Problem List (Updated 09/24/24 @ 21:30 by Kari Manzanares MD) Pulmonary vascular congestion (Acute) Non-ST elevation VT (NSTEMI) (Acute) ESRD on dialysis (Acute) Acute dyspnea (Acute) Traumatic open wound of left lower leg (Acute) Gram-positive bacteremia Severe sepsis Fever (Acute) Hyperglycemia (Acute) Bacteremia due to Enterococcus Encephalopathy AMS (altered mental status) (Acute) Elevated troponin I level (Acute) Dizziness (Acute) Acute hyponatremia (Acute) Dizziness (Acute) Abnormal ECG (Acute) CKD (chronic kidney disease) (Acute) Tobacco abuse (Acute) Dialysis AV fistula malfunction Encounter for pre-operative examination Hypertension (Chronic) Encounter for pre-operative examination CKD (chronic kidney disease), stage IV Angina pectoris Gastritis Hypoxia CHF (congestive heart failure) SOB (shortness of breath) DVT prophylaxis Acute respiratory failure with hypoxia CHF (congestive heart failure) (Acute) Renal failure (Acute) Hypoxemia (Acute) SOB (shortness of breath) (Acute) Epigastric abdominal pain (Acute) SBO (small bowel obstruction) Abdominal pain (Acute) SBO (small bowel obstruction) (Acute) Chest pain Chest pain (Acute) Elevated troponin I level (Acute) Abnormal EKG (Acute) Elevated lipase (Acute) Severe calcific aortic valve stenosis Coffee ground emesis Ambulatory dysfunction (Acute) Generalized weakness (Acute) Weakness (Acute) Acute dehydration (Acute) Diarrhea (Acute) Clostridioides difficile diarrhea Peritoneal dialysis catheter in situ since removed Tobacco use ESRD (end stage renal disease) on dialysis (Acute) M/W/F > [facility] in [place] CKD (chronic kidney disease) stage 5, GFR less than 15 ml/min follows with Dr. Jay Hyperlipidemia BPH (benign prostatic hyperplasia) Diabetes mellitus, type 2 NIDDM Chronic anemia Medical History (Updated 09/24/24 @ 21:30 by Kari Manzanares MD) Diabetic foot ulcer Dialysis patient Tobacco abuse PAD (peripheral artery disease) CHF (congestive heart failure) AV fistula left wrist Osteoarthritis Anxiety and depression Hypertension Surgical History S/P TAVR (transcatheter aortic valve replacement) SBO (small bowel obstruction) with surgical intervention History of esophagogastroduodenoscopy (EGD) History of colonoscopy History of cholecystectomy History of tooth extraction History of cataract surgery RT/LEFT History of procedure for peripheral vascular disease LEFT LEG (STENT PLACED) Cardiac murmur no cardio Family History Brother Cancer Social History Smoking Status: Current every day smoker Tobacco Type: Cigarettes Age Started Using Tobacco: 16; packs per day: 0.5; Cigarettes Per Day: 10; Second Hand Exposure: No; Do You Dip or Chew Tobacco: No; Hx Alcohol Use: No Hx Substance Use: No Preferred Language: Luxembourger Communication Ability: Effective Visual Impairment: No Limitations Hearing Ability: Hard of Hearing Car Hiker Required: No Beliefs That Will Affect Care: None marital status: Single Current Living Situation: Alone Current Living Situation Comment: daughter helps with cooking and cleaning current occupational status: retired 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 Feels Safe at Home: Yes Diet: regular during the past year weight has: remained stable Assistive Devices: Walker Allergies Allergies Allergy/AdvReac Type Severity Reaction Status Date / Time No Known Allergies Allergy Verified 09/11/24 13:23 Home Meds Home Medications Medication Instructions Recorded Confirmed atorvastatin 40 mg tablet 40 mg PO QAM 07/31/19 09/24/24 cholecalciferol (vitamin D3) 25 1,000 unit PO QAM 07/31/19 09/24/24 mcg (1,000 unit) tablet (Vitamin D3) finasteride 5 mg tablet 5 mg PO HS 07/31/19 09/24/24 aspirin 81 mg tablet,delayed 81 mg PO QAM 01/06/20 09/24/24 release albuterol sulfate 90 mcg/actuation 2 puff inhalation QID PRN Wheezing 04/09/24 09/24/24 aerosol inhaler fluticasone furoate 200 1 inh inhalation DAILY PRN 04/09/24 09/24/24 mcg-vilanterol 25 mcg/dose Shortness Of Breath Or Wheezing inhalation powder (Breo Ellipta) pantoprazole 20 mg tablet,delayed 20 mg PO QAM 04/09/24 09/24/24 release sitagliptin phosphate 25 mg tablet 25 mg PO QAM 08/21/24 09/24/24 (Januvia) tamsulosin 0.4 mg capsule 0.4 mg PO HS 08/21/24 09/24/24 amlodipine 5 mg tablet 5 mg PO QAM 09/24/24 09/24/24 citalopram 20 mg tablet 20 mg PO QAM 09/24/24 09/24/24 gabapentin 100 mg capsule 100 mg PO DAILY PRN NEUROPATHY 09/24/24 09/24/24 sucroferric oxyhydroxide 500 mg 500 mg PO TIDM 09/24/24 09/24/24 chewable tablet (Velphoro) tenapanor 30 mg tablet (Xphozah) 30 mg PO BID 09/24/24 09/24/24 Results & Data (ED) Vital Signs Vital Signs - 24 hr 09/24/24 18:55 09/24/24 18:55 09/24/24 18:55 Temperature 37.0 C Temperature Source Oral Pulse Rate 74 Pulse Rate [Exercises] Pulse Rate from SpO2 Sensor Respiratory Rate 21 Respiratory Rate [Exercises] Respiratory Effort / Characteristics Non-Labored Non-Labored Respiratory Depth Normal Normal Respiratory Pattern Regular Regular Apnea Blood Pressure 164/57 H Blood Pressure Mean 92 Pulse Oximetry 95 95 Pulse Oximetry [Exercises] Oxygen Delivery Method Room Air Room Air Room Air Sepsis Recent Fever Within 48 Hours No Sepsis New/Unexplained Change in Mental Status No Sepsis Action Taken by Nursing No Action Required 09/24/24 18:59 09/24/24 19:00 09/24/24 19:01 Temperature Temperature Source Pulse Rate 70 Pulse Rate [Exercises] Pulse Rate from SpO2 Sensor Respiratory Rate Respiratory Rate [Exercises] Respiratory Effort / Characteristics Respiratory Depth Respiratory Pattern Blood Pressure 164/57 H Blood Pressure Mean 90 Pulse Oximetry 95 Pulse Oximetry [Exercises] Oxygen Delivery Method Room Air Sepsis Recent Fever Within 48 Hours Sepsis New/Unexplained Change in Mental Status Sepsis Action Taken by Nursing 09/24/24 20:30 09/24/24 20:48 09/24/24 20:54 Temperature Temperature Source Pulse Rate 76 78 77 Pulse Rate [Exercises] Pulse Rate from SpO2 Sensor 76 77 79 Respiratory Rate 17 18 23 Respiratory Rate [Exercises] Respiratory Effort / Characteristics Respiratory Depth Respiratory Pattern Blood Pressure 174/78 H Blood Pressure Mean 110 Pulse Oximetry 93 96 95 Pulse Oximetry [Exercises] Oxygen Delivery Method Sepsis Recent Fever Within 48 Hours Sepsis New/Unexplained Change in Mental Status Sepsis Action Taken by Nursing 09/24/24 21:00 09/24/24 21:12 Temperature Temperature Source Pulse Rate 77 Pulse Rate [Exercises] 84 Pulse Rate from SpO2 Sensor 77 Respiratory Rate 19 Respiratory Rate [Exercises] 22 Respiratory Effort / Characteristics Respiratory Depth Respiratory Pattern Blood Pressure 171/79 H Blood Pressure Mean 136 Pulse Oximetry 97 Pulse Oximetry [Exercises] 90 Oxygen Delivery Method Room Air Room Air Sepsis Recent Fever Within 48 Hours Sepsis New/Unexplained Change in Mental Status Sepsis Action Taken by Nursing Laboratory Data 09/24/24 19:16 09/24/24 20:09 Lab Results 09/24/24 09/24/24 09/24/24 Range/Units 19:12 19:16 20:09 WBC 12.85 H (4.8-10.8) K/ul RBC 3.19 L (4.70-6.10) M/uL Hgb 9.8 L (14.0-18.0) g/dl Hct 31.5 L (42.0-52.0) % MCV 98.7 (80.0-100.0) fL MCH 30.7 (25.0-34.0) pg MCHC 31.1 L (32.0-36.0) g/dL RDW Std Deviation 53.3 H (36.4-46.3) fL RDW Coeff of Danny 15.2 H (11.5-14.5) % Plt Count 219 (130-400) K/uL MPV 11.3 (9.4-12.4) fL Immature Gran % (Auto) 0.4 % Neut % (Auto) 68.5 % Lymph % (Auto) 18.3 % Frio % (Auto) 10.1 % Eos % (Auto) 2.4 % Baso % (Auto) 0.3 % Neut # (Auto) 8.80 H (1.40-6.50) K/uL Lymph # (Auto) 2.35 (1.20-3.40) K/uL Frio # (Auto) 1.30 H (0.11-0.59) K/uL Eos # (Auto) 0.31 (0.00-0.50) K/uL Baso # (Auto) 0.04 (0.00-0.20) K/uL Immature Gran # (Auto) 0.05 (0.01-0.20) K/uL PT Cancelled 11.4 INR Cancelled 1.1 VBG pH 7.54 H (7.36-7.41) VBG pCO2 43 (38-50) mmHg VBG pO2 47 mmHg VBG HCO3 37 mmol/L VBG O2 Saturation 81.4 % VBG Base Excess 12.8 mEq/L Sodium 135 L (136-145) mmol/L Potassium TNP 3.4 L Chloride 92 L (98-107) mmol/L Carbon Dioxide 35 H (21-32) mmol/L Anion Gap 8 (3-11) BUN 18 (6-23) mg/dl Creatinine 2.93 H (0.6-1.4) mg/dl Est Cr Clr Drug Dosing 19.8 ml/min eGFR 20.81 BUN/Creatinine Ratio 6.1 L (10-20) Glucose 270 H (70-99(Fasting)) mg/dl Calcium 10.0 (8.6-10.3) mg/dl Magnesium 2.1 (1.7-2.4) mg/dl Total Bilirubin 0.5 (0.2-1.0) mg/dl AST TNP 19 ALT 15 (7-52) U/L Alkaline Phosphatase 81 (34-104) U/L Troponin I High Sens 57.7 H* (0-20) pg/ml B-Natriuretic Peptide 1070 H (0-100) pg/ml Total Protein 7.6 (6.0-8.3) gm/dl Albumin 3.8 (3.4-5.0) gm/dl Globulin 3.8 (2.5-4.0) gm/dl Albumin/Globulin Ratio 1.0 (0.9-2) Adenovirus (PCR) Not Detected (NotDetected) B. pertussis DNA (PCR) Not Detected (NotDetected) B.parapertussis DNA PCR Not Detected (NotDetected) C. pneumoniae DNA (PCR) Not Detected (NotDetected) Coronavirus OC43 (PCR) Not Detected (NotDetected) Coronavirus HKU1 (PCR) Not Detected (NotDetected) Coronavirus 229E (PCR) Not Detected (NotDetected) SARS-CoV-2 (PCR) Not Detected (NotDetected) Coronavirus NL63 (PCR) Not Detected (NotDetected) Human Metapneumovir PCR Not Detected (NotDetected) Influenza Type A (PCR) Not Detected (NotDetected) Influenza Type B (PCR) Not Detected (NotDetected) M. pneumoniae (PCR) Not Detected (NotDetected) Parainfluenza 1 (PCR) Not Detected (NotDetected) Parainfluenza 2 (PCR) Not Detected (NotDetected) Parainfluenza 3 (PCR) Not Detected (NotDetected) Parainfluenza 4 (PCR) Not Detected (NotDetected) RSV (PCR) Not Detected (NotDetected) Entero/Rhino (PCR) Not Detected (NotDetected) Imaging Data Radiologist's Impression: Chest X-Ray 09/24/24 18:55 Exam(s): XR CXR 1 VIEW EXAM: XR Chest, 1 View CLINICAL HISTORY: Reason for exam: Dyspnea. TECHNIQUE: Frontal view of the chest. COMPARISON: Chest x-ray 04/17/2024 FINDINGS: Lungs: Pulmonary vascular congestion and interstitial thickening. Potentially combination of edema and chronic interstitial disease. No consolidation. Pleural space: Trace pleural effusions. Heart: Cardiomegaly. Tubes, lines and devices: Status post TAVR. IMPRESSION: 1. Pulmonary vascular congestion and interstitial thickening. Potentially combination of edema and chronic interstitial disease. No consolidation. 2. Trace pleural effusions. Electronically signed by: Rafael Bose MD 09/24/24 19:52 PM Discharge Plan Visit Data Chief Complaint: Shortness of Breath/Dyspnea ED Provider: Kari Manzanares Discharge Problem: Acute dyspnea, ESRD on dialysis, Non-ST elevation VT (NSTEMI), Pulmonary vascular congestion Forms [facility] Prescriptions Prescriptions: No Action Januvia 25 mg tablet 25 mg PO QAM tamsulosin 0.4 mg capsule 0.4 mg PO HS atorvastatin 40 mg Tablet 40 mg PO QAM finasteride 5 mg Tablet 5 mg PO HS cholecalciferol (vitamin D3) [Vitamin D3] 1,000 unit (25 mcg) Tablet 1,000 unit PO QAM aspirin 81 mg Tablet,Delayed Release (Dr/Ec) 81 mg PO QAM pantoprazole 20 mg tablet,delayed release (DR/EC) 20 mg PO QAM albuterol sulfate 90 mcg/actuation HFA aerosol inhaler 2 puff INHALATION QID PRN (Reason: Wheezing) fluticasone furoate-vilanterol [Breo Ellipta] 200-25 mcg/dose Blister With Device 1 inh INHALATION DAILY PRN (Reason: Shortness Of Breath Or Wheezing) citalopram 20 mg tablet 20 mg PO QAM Velphoro 500 mg tablet,chewable 500 mg PO TIDM Xphozah 30 mg tablet 30 mg PO BID amlodipine 5 mg tablet 5 mg PO QAM gabapentin 100 mg capsule 100 mg PO DAILY PRN (Reason: NEUROPATHY) Referrals Referrals: Sampson Jimenez [Primary Care Provider] -
[2024-09-24 19:25] LABS: Base Excess VBG 12.8 mEq/L; HCO3 VBG 37 mmol/L; Oxygen Saturation VBG 81.4 %; PCO2 VBG 43 mmHg (38-50); PO2 VBG 47 mmHg; pH VBG 7.54 (7.36-7.41)
[2024-09-24 19:39] LABS: Basophils # (auto) 0.04 K/uL (0.00-0.20); Basophils % (auto) 0.3 %; Eosinophils # (auto) 0.31 K/uL (0.00-0.50); Eosinophils % (auto) 2.4 %; Hematocrit (blood only) 31.5 % (42.0-52.0); Hemoglobin 9.8 g/dl (14.0-18.0); Immature Granulocytes # (auto) 0.05 K/uL (0.01-0.20); Immature Granulocytes % (auto) 0.4 %; Lymphocytes # (auto) 2.35 K/uL (1.20-3.40); Lymphocytes % (auto) 18.3 %; Mean Corpuscular Hemoglobin 30.7 pg (25.0-34.0); Mean Corpuscular Hgb Conc 31.1 g/dL (32.0-36.0); Mean Corpuscular Volume 98.7 fL (80.0-100.0); Mean Platelet Volume 11.3 fL (9.4-12.4); Monocytes % (auto) 10.1 %; Neutrophils % (auto) 68.5 %; Platelet Count 219 K/uL (130-400); RDW Coefficient of Variation 15.2 % (11.5-14.5); RDW Standard Deviation 53.3 fL (36.4-46.3); Red Blood Count 3.19 M/uL (4.70-6.10); White Blood Count 12.85 K/ul (4.8-10.8)
[2024-09-24 19:54] LABS: Alanine Aminotransferase 15 U/L (7-52); Albumin Level 3.8 gm/dl (3.4-5.0); Alkaline Phosphatase 81 U/L (34-104); Anion Gap 8 (3-11); BUN Creatinine Ratio 6.1 (10-20); Bilirubin,Total 0.5 mg/dl (0.2-1.0); Blood Urea Nitrogen 18 mg/dl (6-23); Carbon Dioxide 35 mmol/L (21-32); Chloride 92 mmol/L (98-107); Creatinine Clr Calc Pharmacy 19.8 ml/min; Globulin 3.8 gm/dl (2.5-4.0); Glucose 270 mg/dl (70-99(Fasting)); Magnesium 2.1 mg/dl (1.7-2.4); Sodium 135 mmol/L (136-145); Total Protein 7.6 gm/dl (6.0-8.3)
--- NOTE | 2024-09-24 19:54 | XRay Report ---
Exam(s): XR CXR 1 VIEW EXAM: XR Chest, 1 View CLINICAL HISTORY: Reason for exam: Dyspnea. TECHNIQUE: Frontal view of the chest. COMPARISON: Chest x-ray 04/17/2024 FINDINGS: Lungs: Pulmonary vascular congestion and interstitial thickening. Potentially combination of edema and chronic interstitial disease. No consolidation. Pleural space: Trace pleural effusions. Heart: Cardiomegaly. Tubes, lines and devices: Status post TAVR. IMPRESSION: 1. Pulmonary vascular congestion and interstitial thickening. Potentially combination of edema and chronic interstitial disease. No consolidation. 2. Trace pleural effusions. Electronically signed by: Rafael Bose MD 09/24/24 19:52 PM
[2024-09-24 19:59] LABS: Troponin I High Sensitivity 57.7 pg/ml (0-20)
[2024-09-24 20:28] LABS: Adenovirus PCR Not Detected (NotDetected); Bordetella parapertussis PCR Not Detected (NotDetected); Bordetella pertussis PCR Not Detected (NotDetected); Chlamydia pneumoniae PCR Not Detected (NotDetected); Coronavirus 229E PCR Not Detected (NotDetected); Coronavirus CoV-2 (COVID19)PCR Not Detected (NotDetected); Coronavirus HKU1 PCR Not Detected (NotDetected); Coronavirus NL63 PCR Not Detected (NotDetected); Coronavirus OC43PCR Not Detected (NotDetected); Human Metapneumovirus PCR Not Detected (NotDetected); Influenza A PCR Not Detected (NotDetected); Influenza B PCR Not Detected (NotDetected); Mycoplasma pneumoniae PCR Not Detected (NotDetected); Parainfluenza Virus 1 PCR Not Detected (NotDetected); Parainfluenza Virus 2 PCR Not Detected (NotDetected); Parainfluenza Virus 3 PCR Not Detected (NotDetected); Parainfluenza Virus 4 PCR Not Detected (NotDetected); Respiratory Syncytial VirusPCR Not Detected (NotDetected); Rhinovirus/Enterovirus PCR Not Detected (NotDetected)
[2024-09-24 20:44] LABS: Potassium 3.4 mmol/L (3.5-5.1)
[2024-09-24 20:53] LABS: INR 1.1 (0.9-1.1); Prothrombin Time 11.4 Seconds (9.0-12.0)
--- NOTE | 2024-09-24 23:13 | History & Physical Report ---
Date of Service September 24, 2024 Assessment & Plan (1) SOB (shortness of breath): Plan: 79-year-old male with past medical significant for type 2 diabetes with peripheral vascular disease, diabetic retinopathy, end-stage renal disease on hemodialysis, hyperparathyroidism due to renal insufficiency, COPD, primary hypertension, aortic stenosis, BPH, anemia of chronic disease, depression with anxiety, ongoing tobacco use states smokes about half pack a day comes because of shortness of breath. Patient says since last 2 weeks is getting on and off short of breath. Any exertion making him short of breath. Today after dialysis was hypoxic but improved and was weaned off oxygen and sent home. At home he again was tachypneic and short of breath. For EMS he was saturating about 89%. He was also wheezing. He was given Solu-Medrol and DuoNeb and was brought in here. Currently off of oxygen is doing okay. But in the ER when he was ambulatory oxygen sats were dropping. Patient states he has dry cough. Denies any fevers. Denies chest pain. No headache. No dizziness. Vision is okay. No sore throat. Appetite is okay. No difficulty swallowing. No nausea. No abdominal pain. Bowel movements are okay. Patient states he ambulates with walker. States he lives alone. Currently patient is speaking in full sentence and is able to give his history. Hemodynamics are okay. Shortness of breath Wheezing Ongoing tobacco abuse Mostly COPD exacerbation Will place him on Solu-Medrol 40 mg twice daily and DuoNebs atc and as needed Possible CHF Will follow CT chest and echo Close monitoring telemetry floor ESRD On hemodialysis Diabetes Hold home p.o. medications Sliding scale Close monitor getting steroids BPH On Flomax GERD On Protonix Anemia of chronic disease Hemoglobin 9.8 Will follow Hemoccult Will follow labs DVT prophylaxis SCDs and heparin subcu Disposition Telemetry Full code. History of Present Illness Chief Complaint: Shortness of breath Primary Care Provider: Sampson Jimenez 79-year-old male with past medical significant for type 2 diabetes with periph eral vascular disease, diabetic retinopathy, end-stage renal disease on hemodialysis, hyperparathyroidism due to renal insufficiency, COPD, primary hypertension, aortic stenosis, BPH, anemia of chronic disease, depression with anxiety, ongoing tobacco use states smokes about half pack a day comes because of shortness of breath. Patient says since last 2 weeks is getting on and off short of breath. Any exertion making him short of breath. Today after dialysis was hypoxic but improved and was weaned off oxygen and sent home. At home he again was tachypneic and short of breath. For EMS he was saturating about 89%. He was also wheezing. He was given Solu-Medrol and DuoNeb and was brought in here. Currently off of oxygen is doing okay. But in the ER when he was ambulatory oxygen sats were dropping. Patient states he has dry cough. Denies any fevers. Denies chest pain. No headache. No dizziness. Vision is okay. No sore throat. Appetite is okay. No difficulty swallowing. No nausea. No abdominal pain. Bowel movements are okay. Patient states he ambulates with walker. States he lives alone. Currently patient is speaking in full sentence and is able to give his history. Hemodynamics are okay. Past medical history. As mentioned above Past surgical history. Aortogram. Cardiac cath. Colonoscopy. EGD. Exploratory laparotomy. Freeing of bowel additions. Cholecystectomy. Replaced aortic valve percutaneous. Social history. . Smokes half pack a day for last 63 years. No alcohol use. No drug use. Family history. Brother had cancer. Allergies Allergy/AdvReac Type Severity Reaction Status Date / Time No Known Allergies Allergy Verified 09/11/24 13:23 Home Medications Medication Instructions Recorded Confirmed Type atorvastatin 40 mg tablet 40 mg PO QAM 07/31/19 09/24/24 History cholecalciferol (vitamin D3) 25 1,000 unit PO QAM 07/31/19 09/24/24 History mcg (1,000 unit) tablet (Vitamin D3) finasteride 5 mg tablet 5 mg PO HS 07/31/19 09/24/24 History aspirin 81 mg tablet,delayed 81 mg PO QAM 01/06/20 09/24/24 History release albuterol sulfate 90 mcg/actuation 2 puff inhalation QID PRN Wheezing 04/09/24 09/24/24 History aerosol inhaler fluticasone furoate 200 1 inh inhalation DAILY PRN 04/09/24 09/24/24 History mcg-vilanterol 25 mcg/dose Shortness Of Breath Or Wheezing inhalation powder (Breo Ellipta) pantoprazole 20 mg tablet,delayed 20 mg PO QAM 04/09/24 09/24/24 History release sitagliptin phosphate 25 mg tablet 25 mg PO QAM 08/21/24 09/24/24 History (Januvia) tamsulosin 0.4 mg capsule 0.4 mg PO HS 08/21/24 09/24/24 History amlodipine 5 mg tablet 5 mg PO QAM 09/24/24 09/24/24 History citalopram 20 mg tablet 20 mg PO QAM 09/24/24 09/24/24 History gabapentin 100 mg capsule 100 mg PO DAILY PRN NEUROPATHY 09/24/24 09/24/24 History sucroferric oxyhydroxide 500 mg 500 mg PO TIDM 09/24/24 09/24/24 History chewable tablet (Velphoro) tenapanor 30 mg tablet (Xphozah) 30 mg PO BID 09/24/24 09/24/24 History Past Med/Surg History Problem List (Updated 09/24/24 @ 23:18 by Russell Pineda MD) SOB (shortness of breath) Pulmonary vascular congestion (Acute) Non-ST elevation MS (NSTEMI) (Acute) ESRD on dialysis (Acute) Acute dyspnea (Acute) Traumatic open wound of left lower leg (Acute) Gram-positive bacteremia Severe sepsis Fever (Acute) Hyperglycemia (Acute) Bacteremia due to Enterococcus Encephalopathy AMS (altered mental status) (Acute) Elevated troponin I level (Acute) Dizziness (Acute) Acute hyponatremia (Acute) Dizziness (Acute) Abnormal ECG (Acute) CKD (chronic kidney disease) (Acute) Tobacco abuse (Acute) Dialysis AV fistula malfunction Encounter for pre-operative examination Hypertension (Chronic) Encounter for pre-operative examination CKD (chronic kidney disease), stage IV Angina pectoris Gastritis Hypoxia CHF (congestive heart failure) SOB (shortness of breath) DVT prophylaxis Acute respiratory failure with hypoxia CHF (congestive heart failure) (Acute) Renal failure (Acute) Hypoxemia (Acute) SOB (shortness of breath) (Acute) Epigastric abdominal pain (Acute) SBO (small bowel obstruction) Abdominal pain (Acute) SBO (small bowel obstruction) (Acute) Chest pain Chest pain (Acute) Elevated troponin I level (Acute) Abnormal EKG (Acute) Elevated lipase (Acute) Severe calcific aortic valve stenosis Coffee ground emesis Ambulatory dysfunction (Acute) Generalized weakness (Acute) Weakness (Acute) Acute dehydration (Acute) Diarrhea (Acute) Clostridioides difficile diarrhea Peritoneal dialysis catheter in situ since removed Tobacco use ESRD (end stage renal disease) on dialysis (Acute) M/W/F > Yue in [place] CKD (chronic kidney disease) stage 5, GFR less than 15 ml/min follows with Dr. Jay Hyperlipidemia BPH (benign prostatic hyperplasia) Diabetes mellitus, type 2 NIDDM Chronic anemia Medical History (Updated 09/24/24 @ 23:18 by Russell Pineda MD) Diabetic foot ulcer Dialysis patient Tobacco abuse PAD (peripheral artery disease) CHF (congestive heart failure) AV fistula left wrist Osteoarthritis Anxiety and depression Hypertension Surgical History S/P TAVR (transcatheter aortic valve replacement) SBO (small bowel obstruction) with surgical intervention History of esophagogastroduodenoscopy (EGD) History of colonoscopy History of cholecystectomy History of tooth extraction History of cataract surgery RT/LEFT History of procedure for peripheral vascular disease LEFT LEG (STENT PLACED) Cardiac murmur no cardio Family History Brother Cancer Social History Smoking Status: Current every day smoker Tobacco Type: Cigarettes Age Started Using Tobacco: 16; packs per day: 0.5; Cigarettes Per Day: 10; Second Hand Exposure: No; Do You Dip or Chew Tobacco: No; Tobacco Cessation Education Requested by Patient: No Hx Alcohol Use: No Hx Substance Use: No Preferred Language: Tajik Communication Ability: Effective Visual Impairment: No Limitations Hearing Ability: Hard of Hearing [employer] Truck [employer] Required: No Beliefs That Will Affect Care: None marital status: Single Current Living Situation: Alone Current Living Situation Comment: daughter helps with cooking and cleaning current occupational status: retired 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 Other Information That Helps Us Care for You: No Feels Safe at Home: Yes Safety Concerns: Feels Safe At This Time Diet: regular during the past year weight has: remained stable Assistive Devices: Glasses and Walker Review of Systems Review of Systems: All systems reviewed & are unremarkable except as noted in HPI & below Physical Exam Physical Exam: General- Not in distress Head- atraumatic Eyes- PERRL. ENT- oropharynx clear Neck- supple, no JVD. Lungs- clear to auscultation b/l wheezing heard, no crackles Heart- regular rhythm; no murmur, no gallop. Abdomen- normal bowel sounds, soft, nontender, no distension Extremities. No edema or erythema seen. Neuro- alert, oriented PERRL, no facial palsy; no dysarthria; moves extremities. Results & Data Results & Data Vital Signs (Past 12 Hours) Vital Signs Temp Pulse Pulse Resp Resp BP Pulse Ox 09/24/24 22:55 84 09/24/24 21:12 84 22 09/24/24 21:00 77 19 171/79 H 97 09/24/24 20:54 77 23 174/78 H 95 09/24/24 20:48 78 18 96 09/24/24 20:30 76 17 93 09/24/24 19:01 95 09/24/24 19:00 164/57 H 09/24/24 18:59 70 09/24/24 18:55 09/24/24 18:55 95 09/24/24 18:55 37.0 C 74 21 164/57 H 95 Pulse Ox O2 Del Method 09/24/24 22:55 09/24/24 21:12 90 Room Air 09/24/24 21:00 Room Air 09/24/24 20:54 09/24/24 20:48 09/24/24 20:30 09/24/24 19:01 Room Air 09/24/24 19:00 09/24/24 18:59 09/24/24 18:55 Room Air 09/24/24 18:55 Room Air 09/24/24 18:55 Room Air Diagnostic Findings Laboratory Results WBC 12.85 K/ul (4.8-10.8) H 09/24/24 19:16 RBC 3.19 M/uL (4.70-6.10) L 09/24/24 19:16 Hgb 9.8 g/dl (14.0-18.0) L 09/24/24 19:16 Hct 31.5 % (42.0-52.0) L 09/24/24 19:16 MCV 98.7 fL (80.0-100.0) 09/24/24 19:16 MCH 30.7 pg (25.0-34.0) 09/24/24 19:16 MCHC 31.1 g/dL (32.0-36.0) L 09/24/24 19:16 RDW Std Deviation 53.3 fL (36.4-46.3) H 09/24/24 19:16 RDW Coeff of Danny 15.2 % (11.5-14.5) H 09/24/24 19:16 Plt Count 219 K/uL (130-400) 09/24/24 19:16 MPV 11.3 fL (9.4-12.4) 09/24/24 19:16 Immature Gran % (Auto) 0.4 % 09/24/24 19:16 Neut % (Auto) 68.5 % 09/24/24 19:16 Lymph % (Auto) 18.3 % 09/24/24 19:16 [place] % (Auto) 10.1 % 09/24/24 19:16 Eos % (Auto) 2.4 % 09/24/24 19:16 Baso % (Auto) 0.3 % 09/24/24 19:16 Neut # (Auto) 8.80 K/uL (1.40-6.50) H 09/24/24 19:16 Lymph # (Auto) 2.35 K/uL (1.20-3.40) 09/24/24 19:16 [place] # (Auto) 1.30 K/uL (0.11-0.59) H 09/24/24 19:16 Eos # (Auto) 0.31 K/uL (0.00-0.50) 09/24/24 19:16 Baso # (Auto) 0.04 K/uL (0.00-0.20) 09/24/24 19:16 Immature Gran # (Auto) 0.05 K/uL (0.01-0.20) 09/24/24 19:16 PT 11.4 Seconds (9.0-12.0) 09/24/24 20:09 INR 1.1 (0.9-1.1) 09/24/24 20:09 VBG pH 7.54 (7.36-7.41) H 09/24/24 19:12 VBG pCO2 43 mmHg (38-50) 09/24/24 19:12 VBG pO2 47 mmHg 09/24/24 19:12 VBG HCO3 37 mmol/L 09/24/24 19:12 VBG O2 Saturation 81.4 % 09/24/24 19:12 VBG Base Excess 12.8 mEq/L 09/24/24 19:12 Sodium 135 mmol/L (136-145) L 09/24/24 19:16 Potassium 3.4 mmol/L (3.5-5.1) L 09/24/24 20:09 Chloride 92 mmol/L (98-107) L 09/24/24 19:16 Carbon Dioxide 35 mmol/L (21-32) H 09/24/24 19:16 Anion Gap 8 (3-11) 09/24/24 19:16 BUN 18 mg/dl (6-23) 09/24/24 19:16 Creatinine 2.93 mg/dl (0.6-1.4) H 09/24/24 19:16 Est Cr Clr Drug Dosing 19.8 ml/min 09/24/24 19:16 eGFR 20.81 09/24/24 19:16 BUN/Creatinine Ratio 6.1 (10-20) L 09/24/24 19:16 Glucose 270 mg/dl (70-99(Fasting)) H 09/24/24 19:16 Calcium 10.0 mg/dl (8.6-10.3) 09/24/24 19:16 Magnesium 2.1 mg/dl (1.7-2.4) 09/24/24 19:16 Total Bilirubin 0.5 mg/dl (0.2-1.0) 09/24/24 19:16 AST 19 U/L (13-39) 09/24/24 20:09 ALT 15 U/L (7-52) 09/24/24 19:16 Alkaline Phosphatase 81 U/L (34-104) 09/24/24 19:16 Troponin I High Sens 58.0 pg/ml (0-20) H* 09/24/24 20:09 B-Natriuretic Peptide 1070 pg/ml (0-100) H 09/24/24 19:16 Total Protein 7.6 gm/dl (6.0-8.3) 09/24/24 19:16 Albumin 3.8 gm/dl (3.4-5.0) 09/24/24 19:16 Globulin 3.8 gm/dl (2.5-4.0) 09/24/24 19:16 Albumin/Globulin Ratio 1.0 (0.9-2) 09/24/24 19:16 Adenovirus (PCR) Not Detected (NotDetected) 09/24/24 19:16 B. pertussis DNA (PCR) Not Detected (NotDetected) 09/24/24 19:16 B.parapertussis DNA PCR Not Detected (NotDetected) 09/24/24 19:16 C. pneumoniae DNA (PCR) Not Detected (NotDetected) 09/24/24 19:16 Coronavirus OC43 (PCR) Not Detected (NotDetected) 09/24/24 19:16 Coronavirus HKU1 (PCR) Not Detected (NotDetected) 09/24/24 19:16 Coronavirus 229E (PCR) Not Detected (NotDetected) 09/24/24 19:16 SARS-CoV-2 (PCR) Not Detected (NotDetected) 09/24/24 19:16 Coronavirus NL63 (PCR) Not Detected (NotDetected) 09/24/24 19:16 Human Metapneumovir PCR Not Detected (NotDetected) 09/24/24 19:16 Influenza Type A (PCR) Not Detected (NotDetected) 09/24/24 19:16 Influenza Type B (PCR) Not Detected (NotDetected) 09/24/24 19:16 M. pneumoniae (PCR) Not Detected (NotDetected) 09/24/24 19:16 Parainfluenza 1 (PCR) Not Detected (NotDetected) 09/24/24 19:16 Parainfluenza 2 (PCR) Not Detected (NotDetected) 09/24/24 19:16 Parainfluenza 3 (PCR) Not Detected (NotDetected) 09/24/24 19:16 Parainfluenza 4 (PCR) Not Detected (NotDetected) 09/24/24 19:16 RSV (PCR) Not Detected (NotDetected) 09/24/24 19:16 Entero/Rhino (PCR) Not Detected (NotDetected) 09/24/24 19:16 Impressions Chest X-Ray 09/24/24 18:55 Exam(s): XR CXR 1 VIEW EXAM: XR Chest, 1 View CLINICAL HISTORY: Reason for exam: Dyspnea. TECHNIQUE: Frontal view of the chest. COMPARISON: Chest x-ray 04/17/2024 FINDINGS: Lungs: Pulmonary vascular congestion and interstitial thickening. Potentially combination of edema and chronic interstitial disease. No consolidation. Pleural space: Trace pleural effusions. Heart: Cardiomegaly. Tubes, lines and devices: Status post TAVR. IMPRESSION: 1. Pulmonary vascular congestion and interstitial thickening. Potentially combination of edema and chronic interstitial disease. No consolidation. 2. Trace pleural effusions. Electronically signed by: Rafael Bose MD 09/24/24 19:52 PM ECG Additional Comments: ECG. Sinus rhythm with PVCs at the rate of 74. Right bundle branch block. Left anterior fascicular block. Bifascicular block. Code Status & VTE Plan VTE Prophylaxis Plan VTE Prophylaxis will be ordered: Yes
[2024-09-25] MEDS ORDERED: ACETAMINOPHEN 325 MG TAB PO PRN (00:49)
[2024-09-25] MEDS ORDERED: POLYETHYLENE (MIRALAX) 17 GM PACK PO PRN (00:49)
[2024-09-25] MEDS ORDERED: FLUTICASONE/VILANTEROL 200/25MCG 14 PUFFS/INHALER INH PRN (00:49)
[2024-09-25] MEDS ORDERED: NITROGLYCERIN SL 0.4 MG/TAB TAB SL PRN (00:49)
[2024-09-25] MEDS ORDERED: GLUCOSE 10 TAB/TUBE PO PRN (00:49)
[2024-09-25] MEDS ORDERED: DEXTROSE 50% 50 ML SYRINGE IV PRN (00:49)
[2024-09-25] MEDS ORDERED: ALBUTEROL HFA 8 GM INHALER INH PRN (00:49)
[2024-09-25] MEDS ORDERED: GLUCAGON FOR INJ 1 MG VIAL SQ PRN (00:49)
[2024-09-25] MEDS ORDERED: ALBUT/IPRATROP 3MG/0.5MG NEB 3 ML VIAL NEB PRN (00:49)
[2024-09-25] MEDS ORDERED: CARBOHYDRATES FOR HYPOGLYCEMIA PO PRN (00:49)
[2024-09-25] MEDS ORDERED: GLUCOSE 40% GEL 15 GM TUBE PO PRN (00:49)
[2024-09-25] MEDS: ALBUT/IPRATROP 3MG/0.5MG NEB 3 ML VIAL NEB SCH (01:49)
[2024-09-25] MEDS: INSULIN ASPART PER UNIT CHARGE SC STA (01:53)
--- NOTE | 2024-09-25 02:39 | CT Scan Report ---
EXAM: CT chest diagnostic wo con CLINICAL HISTORY: sob chf/pneumonia? TECHNIQUE: Contiguous axial images were obtained from the neck base through the upper abdomen without contrast. In addition, sagittal and coronal reconstructions were performed to potentially increase the sensitivity for the detection of disease. CT scan was performed according to ALARA (as low as reasonably achievable). COMPARISON: 18 April 2024. FINDINGS: Few paraseptal and centriacinar emphysematous changes are noted involving bilateral upper lobes. Positional ground-glass densities with interstitial thickening is noted involving dependent portions of bilateral lung parenchyma. The central airways are patent. Mild bilateral pleural effusion is noted, more on right side causing compression atelectasis of underlying lung parenchyma. Subpleural subsegmental atelectasis is noted involving bilateral lower lobes No pericardial effusion is identified. Evaluation of the mediastinum and ochoa is limited due to the lack of intravenous contrast. No axillary or mediastinal adenopathy is identified. Unchanged cardiomegaly is seen. Dense mitral valve calcifications are noted. Dilated pulmonary trunk, right and left pulmonary arteries. Atherosclerotic calcifications are noted involving aorta, its branches and coronary arteries. Rest of the findings are unchanged compared to the previous CT scan. IMPRESSION: 1. Unchanged cardiomegaly with dense mitral valve calcifications. 2. Dilated pulmonary trunk, right and left pulmonary arteries. Findings suggestive of pulmonary arterial hypertension. Echocardiographic correlation is advised. 3. Mild bilateral pleural effusion, more on right side causing compression atelectasis of underlying lung parenchyma. Left pleural effusion is a new finding. Right sided pleural effusion has increased. 4. No significant/acute lung parenchymal abnormality detected. 5. Stable emphysematous changes in bilateral lung parenchyma. 6. Subpleural subsegmental atelectasis is noted involving bilateral lower lobes. Rest of the findings are unchanged compared to the previous CT scan. Electronically signed by Laron Tijerina 09-25-2024 02:39 AM
[2024-09-25 02:56] LABS: Appearance Urine Clear (Clear); Bacteria Urine Automated None Seen (None Seen); Bilirubin Urine Negative (Negative); Blood Urine Trace (Negative); Cast Urine Automated 0-2 /lpf (0-2); Color Urine Yellow; Epithelial Cell Urine Auto 0-2 /hpf (0-2); Glucose Urine UA 2+ (Negative); Ketones Urine Negative (Negative); Leukocyte Esterase Urine Negative (Negative); Nitrite Urine Negative (Negative); Protein Urine 2+ (Negative); Specific Gravity Urine 1.008 (1.000-1.030); Urobilinogen Urine Negative (Negative); WBC Urine Automated 0-5 /hpf (0-5); pH Urine >= 9.0 (4.5-7.5)
[2024-09-25 06:45] LABS: BUN Creatinine Ratio 7.1 (10-20); Basophils # (auto) 0.01 K/uL (0.00-0.20); Basophils % (auto) 0.1 %; Calcium 10.2 mg/dl (8.6-10.3); Creatinine Clr Calc Pharmacy 15.8 ml/min; Hematocrit (blood only) 32.2 % (42.0-52.0); Hemoglobin 9.9 g/dl (14.0-18.0); Immature Granulocytes # (auto) 0.05 K/uL (0.01-0.20); Immature Granulocytes % (auto) 0.6 %; Lymphocytes # (auto) 0.99 K/uL (1.20-3.40); Lymphocytes % (auto) 12.7 %; Magnesium 2.2 mg/dl (1.7-2.4); Mean Corpuscular Hgb Conc 30.7 g/dL (32.0-36.0); Mean Corpuscular Volume 97.6 fL (80.0-100.0); Mean Platelet Volume 11.1 fL (9.4-12.4); Monocytes # (auto) 0.48 K/uL (0.11-0.59); Monocytes % (auto) 6.2 %; Neutrophils # (auto) 6.25 K/uL (1.40-6.50); Neutrophils % (auto) 80.4 %; Platelet Count 220 K/uL (130-400); Potassium 3.5 mmol/L (3.5-5.1); RDW Coefficient of Variation 15.2 % (11.5-14.5); RDW Standard Deviation 53.2 fL (36.4-46.3); White Blood Count 7.78 K/ul (4.8-10.8)
[2024-09-25 06:52] LABS: Troponin I High Sensitivity 50.8 pg/ml (0-20)
[2024-09-25 07:07] LABS: Estimated Average Glucose 131 mg/dl; Hemoglobin A1C 6.2 % (4.5-5.6)
--- NOTE | 2024-09-25 08:23 | Nephrology Consultation ---
Date of Consultation September 25, 2024 Assessment & Plan (1) ESRD on dialysis: on RA; imaging w/ BL pleural effusions which have increased but still on smaller side; chemistries acceptable -continue routine HD regimen MWF > next tx 09/26; orders in -ordered a 1.2L FR for him > despite urinalysis at admission pt historically anuric Care coordinated w/ Dr Lancaster regarding dialysis plans, assessment respiratory and anemia status; we are in agreement (2) SOB (shortness of breath): improving w/ steroids, nepbs (3) Diabetic foot ulcer: consider doing MRI while here to r/o R great toe OM needs good exam of BLE distally >> chronic / recurrent wounds there historically History of Present Illness Reason for Consultation: ESRD on HD Requesting Physician: Dr Pineda Attending Physician: Jorge Lancaster MD History of Present Illness 79 y/o M whom I'm asked to see for ESRD on HD was admitted overnight for a COPD exacerbation after presenting with dyspnea. PMH includes ESRD on MWF HD via AV[facility] at [facility], HFpEF (EF 60-65%, TTE 2023), status post TAVR, CAD, COPD with ongoing tobacco abuse, hypertension, hyperlipidemia, DM2 diet-controlled, h/o bacteremia x 2 past year > enterococcus fall 2022 and streptococcal bacteremia April 2024, h/o C diff colitis, chronic foot wounds > most recently R great toe for which osteomyelitis could not be r/o; at least mild cognitive impairment/dementia. He was to get MRI 09/18 to evaluate for OM but this was not done. He is adherent w/ dialysis and comes to all of his treatments; lots of challenging forgetting to take his pills though Seen on AM rounds today >> pt felt breathing much improved; denies cough or sinus d/c; no edema, no pain; denied diarrhea though aid said he'd had severel bm; he is anuric > no change in chronic oviding habits; no f/c/rash. he was started on steroids and nebs, though HF also a potential concern in this anuric pt Allergies Allergy/AdvReac Type Severity Reaction Status Date / Time No Known Allergies Allergy Verified 09/11/24 13:23 Home Medications Medication Instructions Recorded Confirmed Type atorvastatin 40 mg tablet 40 mg PO QAM 07/31/19 09/24/24 History cholecalciferol (vitamin D3) 25 1,000 unit PO QAM 07/31/19 09/24/24 History mcg (1,000 unit) tablet (Vitamin D3) finasteride 5 mg tablet 5 mg PO HS 07/31/19 09/24/24 History aspirin 81 mg tablet,delayed 81 mg PO QAM 01/06/20 09/24/24 History release albuterol sulfate 90 mcg/actuation 2 puff inhalation QID PRN Wheezing 04/09/24 09/24/24 History aerosol inhaler fluticasone furoate 200 1 inh inhalation DAILY PRN 04/09/24 09/24/24 History mcg-vilanterol 25 mcg/dose Shortness Of Breath Or Wheezing inhalation powder (Breo Ellipta) pantoprazole 20 mg tablet,delayed 20 mg PO QAM 04/09/24 09/24/24 History release sitagliptin phosphate 25 mg tablet 25 mg PO QAM 08/21/24 09/24/24 History (Januvia) tamsulosin 0.4 mg capsule 0.4 mg PO HS 08/21/24 09/24/24 History amlodipine 5 mg tablet 5 mg PO QAM 09/24/24 09/24/24 History citalopram 20 mg tablet 20 mg PO QAM 09/24/24 09/24/24 History gabapentin 100 mg capsule 100 mg PO DAILY PRN NEUROPATHY 09/24/24 09/24/24 History sucroferric oxyhydroxide 500 mg 500 mg PO TIDM 09/24/24 09/24/24 History chewable tablet (Velphoro) tenapanor 30 mg tablet (Xphozah) 30 mg PO BID 09/24/24 09/24/24 History Patient History Medical History Diabetic foot ulcer Dialysis patient Tobacco abuse PAD (peripheral artery disease) CHF (congestive heart failure) AV fistula left wrist Osteoarthritis Anxiety and depression Hypertension Surgical History S/P TAVR (transcatheter aortic valve replacement) SBO (small bowel obstruction) with surgical intervention History of esophagogastroduodenoscopy (EGD) History of colonoscopy History of cholecystectomy History of tooth extraction History of cataract surgery RT/LEFT History of procedure for peripheral vascular disease LEFT LEG (STENT PLACED) Cardiac murmur no cardio Family History Brother Cancer Social History Smoking Status: Current every day smoker Tobacco Type: Cigarettes Age Started Using Tobacco: 16; packs per day: 0.5; Cigarettes Per Day: 10; Second Hand Exposure: No; Do You Dip or Chew Tobacco: No; Tobacco Cessation Education Requested by Patient: No Hx Alcohol Use: No Hx Substance Use: No Preferred Language: Tajik Communication Ability: Effective Visual Impairment: No Limitations Hearing Ability: Hard of Hearing Seat Cover Cutter Required: No Beliefs That Will Affect Care: None marital status: Single Current Living Situation: Alone Current Living Situation Comment: daughter helps with cooking and cleaning current occupational status: retired 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 Other Information That Helps Us Care for You: No Feels Safe at Home: Yes Safety Concerns: Feels Safe At This Time Diet: regular during the past year weight has: remained stable Assistive Devices: Walker Review of Systems 2 Review of Systems: All systems reviewed & are unremarkable except as noted in HPI & below Physical Exam 2 Constitutional: well developed (sitting on side of bed in brief), well nourished, + physical limitations, + frail appearing and cooperative; no acute distress Eyes: EOM intact bilaterally ENMT: Mouth: + dry oral mucous membranes Respiratory: normal respiratory effort Auscultation: + diminished lung sounds Cardiovascular: Rate/Rhythm: regular rate and regular rhythm Extremities: + AV fistula; no edema Gastrointestinal (Abdomen): Inspection/Auscultation: normal bowel sounds P ercussion/Palpation: abdomen soft; abdomen nontender Musculoskeletal: Extremities: strength 5/5 throughout Skin: no rashes, warm and dry (R leg in boot) Neurologic: albarran, fluent speech, no tremor Results & Data Vital Signs (Past 12 Hours) Vital Signs Temp Pulse Pulse Pulse Resp Resp BP 09/25/24 08:07 36.5 C 72 19 09/25/24 07:52 09/25/24 07:20 66 16 09/25/24 07:00 76 09/25/24 03:45 36.7 C 77 20 09/25/24 01:50 78 17 09/25/24 01:25 09/25/24 00:55 79 09/25/24 00:40 36.6 C 20 09/25/24 00:01 09/25/24 00:00 80 16 09/24/24 23:30 83 16 167/94 H 09/24/24 23:06 83 16 09/24/24 23:00 135/96 09/24/24 22:55 84 09/24/24 22:31 175/67 H 09/24/24 22:27 75 17 09/24/24 22:03 77 13 09/24/24 22:00 158/86 H 09/24/24 21:33 78 16 09/24/24 21:30 176/101 H 09/24/24 21:12 84 22 09/24/24 21:00 77 19 171/79 H 09/24/24 20:54 77 23 174/78 H 09/24/24 20:48 78 18 09/24/24 20:30 76 17 BP Pulse Ox Pulse Ox O2 Del Method 09/25/24 08:07 177/74 H 96 Room Air 09/25/24 07:52 Room Air 09/25/24 07:20 98 Room Air 09/25/24 07:00 09/25/24 03:45 169/69 H 92 Room Air 09/25/24 01:50 95 Room Air 09/25/24 01:25 Room Air 09/25/24 00:55 09/25/24 00:40 180/82 H 95 Room Air 09/25/24 00:01 Room Air 09/25/24 00:00 09/24/24 23:30 95 Room Air 09/24/24 23:06 96 Room Air 09/24/24 23:00 09/24/24 22:55 09/24/24 22:31 09/24/24 22:27 95 Room Air 09/24/24 22:03 98 Room Air 09/24/24 22:00 09/24/24 21:33 96 Room Air 09/24/24 21:30 09/24/24 21:12 90 Room Air 09/24/24 21:00 97 Room Air 09/24/24 20:54 95 09/24/24 20:48 96 09/24/24 20:30 93 Laboratory Results 09/25/24 05:32 09/25/24 05:[address] chest (images personally reviewed agree w/ report; small effusions BL) 1. Unchanged cardiomegaly with dense mitral valve calcifications. 2. Dilated pulmonary trunk, right and left pulmonary arteries. Findings suggestive of pulmonary arterial hypertension. Echocardiographic correlation is advised. 3. Mild bilateral pleural effusion, more on right side causing compression atelectasis of underlying lung parenchyma. Left pleural effusion is a new finding. Right sided pleural effusion has increased. 4. No significant/acute lung parenchymal abnormality detected. 5. Stable emphysematous changes in bilateral lung parenchyma. 6. Subpleural subsegmental atelectasis is noted involving bilateral lower lobes. (3) Diabetic foot ulcer Diabetes mellitus type: type 2 Diabetic foot ulcer location: toe Laterality: right Non-pressure ulcer stage: with fat layer exposed Qualified Code(s): E 11.621 - Type 2 diabetes mellitus with foot ulcer; L97.512 - Non-pressure chronic ulcer of other part of right foot with fat layer exposed
[2024-09-25] MEDS: methylPREDNISolone 40 MG in SYRINGE 0 ML IV SCH (08:41)
[2024-09-25] MEDS: CHOLECALCIFEROL 25 MCG (1000 UNITS) TAB PO SCH (08:42)
[2024-09-25] MEDS: PANTOprazole 40 MG TAB PO SCH (08:42)
[2024-09-25] MEDS: GABAPENTIN 100 MG CAP PO PRN (08:42)
[2024-09-25] MEDS: ASPIRIN 81 MG ECTAB PO SCH (08:42)
[2024-09-25] MEDS: CITALOPRAM 20 MG TAB PO SCH (08:42)
[2024-09-25] MEDS: ATORVASTATIN 40 MG TAB PO SCH (08:42)
[2024-09-25] MEDS: amLODIPine BESYLATE 5 MG TAB PO SCH (08:42)
[2024-09-25] MEDS: INSULIN ASPART PER UNIT CHARGE SC SCH (08:45)
[2024-09-25] MEDS: HEPARIN SOD 5,000 UNIT/0.5 ML VIAL SQ SCH (08:46)
[2024-09-25] MEDS ORDERED: methylPREDNISolone 125 MG/2 ML VIAL IV SCH (09:00)
--- NOTE | 2024-09-25 14:48 | Hospitalist Progress Note ---
Date of Service September 25, 2024 Assessment & Plan (1) SOB (shortness of breath): Plan: 79-year-old male with past medical significant for type 2 diabetes with peripheral vascular disease, diabetic retinopathy, end-stage renal disease on hemodialysis, hyperparathyroidism due to renal insufficiency, COPD, primary hypertension, aortic stenosis, BPH, anemia of chronic disease, depression with anxiety, ongoing tobacco use states smokes about half pack a day comes because of shortness of breath. Patient says since last 2 weeks is getting on and off short of breath. Any exertion making him short of breath. Today after dialysis was hypoxic but improved and was weaned off oxygen and sent home. At home he again was tachypneic and short of breath. COPD exacerbation Patient presented with shortness of breath Chest x-ray on admission showed pulmonary vascular congestion and interstitial thickening CT chest did not show any significant acute lung parenchymal abnormality. Stable emphysematous changes. Continue on DuoNeb, steroids, inhalers Supplemental oxygen as needed to keep saturation above 88% ESRD On hemodialysis nephrology on board Diabetes Hold home p.o. medications Sliding scale Close monitor getting steroids BPH On Flomax GERD On Protonix Anemia of chronic disease Hemoglobin 9.8 Monitor DVT prophylaxis SCDs and heparin subcu Disposition Telemetry Full code. Time spent evaluating patient, direct bedside care, chart review, placing orders, interpretation of diagnostic studies, discussion with consultants, patient, and family members, as well as other required patient management activities is 50 minutes Please note the above document was generated using voice recognition software. It may contain grammatical, syntax or spelling errors. Any formal questions or concerns about the content, text or information contained within the body of this dictation should be directly addressed to the provider for clarification Admission and Anticipated Discharge Date Admission Date: September 24, 2024 Subjective Patient seen and examined at bedside. He is comfortable; not in distress. He is sitting up on a chair at the side of the bed No significant events overnight Review of Systems Review of Systems: All systems reviewed & are unremarkable except as noted in Subjective Physical Exam Physical Exam: Constitutional: Awake, alert oriented x 3; not in distress. Respiratory: Bilateral vesicular breath sound. Cardiovascular: RRR, no murmur, no edema Vessels: no JVD or carotid bruit Chest: normal inspection of chest Abdomen: normal bowel sounds, soft, nontender, no hepatosplenomegaly Musculoskeletal: no cyanosis or clubbing, extremities motor strength 5/5 Skin: no rashes, warm and dry normal turgor Neurologic: PERRL, EOMI, accommodation nl, no face palsy, no dysarthria CN's II- XI intact bilaterally and moves all extremities Psychiatric: A+Ox3, euthymic affect Results & Data Results & Data Vital Signs (Past 12 Hours) Vital Signs Temp Pulse Pulse Resp BP Pulse Ox O2 Del Method 09/25/24 13:13 61 17 97 Room Air 09/25/24 11:39 36.5 C 69 19 159/65 H 95 Room Air 09/25/24 08:07 36.5 C 72 19 177/74 H 96 Room Air 09/25/24 07:52 Room Air 09/25/24 07:20 66 16 98 Room Air 09/25/24 07:00 76 09/25/24 03:45 36.7 C 77 20 169/69 H 92 Room Air
[2024-09-25] MEDS: TAMSULOSIN HCL 0.4 MG CAP PO SCH (20:15)
[2024-09-25] MEDS: FINASTERIDE 5 MG TAB PO SCH (20:15)
--- OUTSIDE RECORDS SUMMARY | 2024-09-25 23:07 | External Medical Summary | Summary of Care ---
Author Name Unknown Organization [facility] Address [address] [place] [address] Phone [phone] Care Team Providers Care Inside Wireman Name Role Phone Unavailable Primary Care Provider Unavailabl e Reason for Visit * Reason Comments eRx-Medication Refill Encounter Details Date Type Department Care Team (Late st Contact Info) Description 09/14/2024 Refill Family Medicine [address] [place] [address] Rell Salazar MD [address] [place] [address] [place] [address] Dyslipidemia, goal LDL below 160 Allergies No known active allergiesdocumented as of this encounter (statuses as of 09/16/2024) Medications aspirin 81 MG chewable tabletIndicatio ns:Type 2 diabetes mellitus with hemoglobin A1c goal of less than 7.5% ([facility]) One chewable by mouth once a day with food 100 Tab 1 017 Active Calcitriol 0.25 MCG Oral Capsule (Rocaltrol) Take 1 Capsule by mouth in the morning. Active Nephrocaps 1 MG Oral CapsuleIndicati ons:ESRD (end stage renal disease) ([facility]) Take by mouth 1 Capsule in the morning. 90 Capsule 1 022 Active OneTouch Delica Lancets 33GIndications: Type 2 DM with CKD stage 4 and hypertension ([facility]) TESTING ONCE A DAY. E 11.9 100 Each 3 022 Active Soluble Fiber/Probiotic s Oral Tablet ChewableIndicat ions:Diarrhea, unspecified type Take by mouth 1 Tablet in the morning. 90 Tablet 1 022 Active Fluticasone Furoate-Vilante rol 200-25 MCG/ACT Inhalation Aerosol Powder Breath Activated (BREO ellipta)Indicat ions:Chronic obstructive pulmonary disease (HCC) INHALE 1 PUFF BY MOUTH IN THE MORNING 60 Each 5 023 Active Albuterol Sulfate HFA 108 (90 Base) MCG/ACT Inhalation Aerosol Solution INHALE 2 PUFFS BY MOUTH EVERY 6 HOURS NEEDED FOR WHEEZING 54 g 3 023 Active OneTouch Verio In Vitro Strip (Glucose Blood)Indicatio ns:Type 2 diabetes mellitus with end-stage renal disease ([facility]) USE ONCE DAILY E11.9 100 Strip 3 023 Active Finasteride 5 MG Oral Tablet (Proscar)Indica tions:Hypertrop hy of prostate without urinary obstruction TAKE 1 TABLET BY MOUTH EVERY DAY 90 Tablet 3 023 Active Tamsulosin HCl 0.4 MG Oral Capsule (Flomax)Indicat ions:Hypertroph y of prostate without urinary obstruction TAKE 1 CAPSULE BY MOUTH EVERY DAY 90 Capsule 3 023 Active amLODIPine Besylate 5 MG Oral Tablet (Norvasc)Indica tions:Primary hypertension TAKE 1 TABLET BY MOUTH EVERY DAY IN THE MORNING 90 Tablet 3 023 Active DAPTOmycin IV IV (AMBULATORY) Administer 500 mg intravenously once a day on Sunday, Sunday, and Sunday only. Patient is receiving daptomycin 500 mg on Sunday and Sunday postdialysis; then on 750 mg on Sunday. Active Ondansetron HCl 4 MG Oral TabletIndicatio ns:Epigastric pain Take 1 Tablet by mouth every 6 hours as needed for Nausea. 30 Tablet 023 Active Sevelamer Carbonate 800 MG Oral Tablet (Renvela) TAKE 3 TABLET BY MOUTH THREE TIMES A DAY WITH MEALS AND 2 TABLET TWICE A DAY WITH SNACKS 023 Active Velphoro 500 MG Oral Tablet Chewable (Sucroferric Oxyhydroxide) 1 tablet three times daily with meals 023 Active Citalopram Hydrobromide 40 MG Oral Tablet (CeleXA)Indicat ions:Depression with anxiety TAKE 1 TABLET BY MOUTH EVERY DAY 90 Tablet 1 024 Active Vitamin D3 25 MCG (1000 UT) Oral Capsule (Cholecalcifero l)Indications:V itamin D deficiency Take 1 Capsule by mouth in the morning. 90 Capsule 3 024 Active Pantoprazole Sodium 20 MG Oral Tablet Delayed Release (Protonix)Indic ations:Epigastr ic pain TAKE 1 TABLET BY MOUTH EVERY DAY IN THE MORNING 90 Tablet 1 024 Active Atorvastatin Calcium 40 MG Oral Tablet (Lipitor)Indica tions:Dyslipide darion, goal LDL below 160 TAKE ONE PILL BY MOUTH AT BEDTIME 90 Tablet 024 Active Atorvastatin Calcium 40 MG Oral Tablet (Lipitor)Indica tions:Dyslipide darion, goal LDL below 160 TAKE ONE PILL BY MOUTH AT BEDTIME 90 Tablet 1 024 2023 Discontinued documented as of this encounter (statuses as of 09/16/2024) Active Problems Problem Noted Date Diagnosed Date [...] hemoglobin A1c goal of less than 7.5% Overview (02/29/2016): ICD-10 update of inactive term HLD (hyperlipidemia) Overview (03/06/2016): ICD-10 update of inactive term Hyperparathyroidism due to renal insufficiency Right renal atrophy Peritoneal dialysis catheter in place documented as of this encounter (statuses as of 09/16/2024) Resolved Problems Problem Noted Date Diagnosed Date [...] the lower extremities 01/01/2018 07/30/2018 Atherosclerosis of [place] of left leg with ulceration of other part of foot 01/01/2018 02/02/2020 Kidney disease, chronic, sta ge IV (GFR 15-29 ml/min) 01/01/2018 10/18/2018 Kidney disease, chronic, sta ge III (GFR 30-59 ml/min) 07/19/2015 01/01/2018 Overview: Per CKD protocol #1 Type 2 diabetes mellitus wit h hemoglobin A1c goal of less than 7.0% 06/18/2015 Overview (02/29/2016): ICD-10 update of inactive term BMI 26.0-26.9,adult 02/02/20 20 Benign hypertension with CKD (chronic kidney disease) stage III 01/01/2018 Type 2 DM with CKD stage 3 and hypertension 01/01/2018 Benign hypertension with CKD (chronic kidney disease) stage IV 07/02/2019 Type 2 DM with CKD stage 4 and hypertension 07/02/2019 documented as of this encounter (statuses as of 09/16/2024) Immunizations Name Administration Dates Next Due Hepatitis B, 20+ yrs 08/17/2020,04/13/20 20,03/16/2020,02/16 Pneumococcal Conjugate Vacc, 13 Valent (Prevnar) 02/26/2020 Pneumococcal Polysaccharide PPV23 (Pneumovax) 04/22/2020 Seasonal Influenza, High Dos e, Trivalent, PF, IM (Fluzone HD) 10/05/2020,09/05/2020 documented as of this encounter Social History Tobacco Use Types Packs/Day Years Used Date Smoking Tobacco: Every Day Cigarettes 0.5 63.6 Started: 1963 Pipe Smokeless Tobacco: Never Comments:Currently smoking 1 /2 pack/day was smoking 1 pack/day - Quit use of pipe - Started smoking age -15 Alcohol Use Standard Drinks/Week Comments No 0 (1 standard drink = 0.6 oz pur e alcohol) PHQ-2 Answer Date Recorded PHQ-2 Score -1 07/25/2020 Sex and Gender Information Value Date Recorded Sex Assigned at Not on file Legal Sex Male 5:27 AM EST Gender Identity Not on file Sexual Orientation Not on file documented as of this encounter Functional Status * Are you deaf or do you have serious difficulty hearing? Answer Date of Assessment Author No 04/08/2022 10:00 PM Monika John i, RN * Are you blind or do you have serious difficulty seeing, even when wearing glasses? Answer Date of Assessment Author No 04/08/2022 10:00 PM Monika John i, RN * Do you have serious difficulty walking or climbing stairs? (5 years old or older) Answer Date of Assessment Author No 04/08/2022 10:00 PM Monika John i, RN * Do you have difficulty dressing or bathing? (5 years old or older) Answer Date of Assessment Author No 04/08/2022 10:00 PM Monika John i, RN * Because of a physical, mental, or emotional condition, do you have difficulty doing errands alone such as visiting a doctors office or shopping? (15 years old or older) Answer Date of Assessment Author No 04/08/2022 10:00 PM Monika John i, RN documented as of this encounter Mental Status * Because of a physical, mental, or emotional condition, do you have serious difficulty concentrating, remembering, or making decisions? (5 years old or older) Answer Entry Date Author No 04/08/2022 10:00 PM Monika John i, RN documented in this encounter Miscellaneous Notes * Telephone Encounter - Daysi Viera MD - 09/16/2024 11:25 AM ESTSigned Prescriptions: Disp Refills Atorvastatin Calcium 40 MG Oral Tablet (Li*90 Tab*0 Sig: TAKE ONE PILL BY MOUTH AT BEDTIME Authorizing Provider: DAYSI VIERA * Telephone Encounter - Lila Rivas RN - 09/16/2024 11:11 AM ESTPending Prescriptions: Disp Refills Atorvastatin Calcium 40 MG Oral Tablet (Li*90 Tab*0 Sig: TAKE ONE PILL BY MOUTH AT BEDTIME * Telephone Encounter - Dalton Danielle, brand leader - 09/16/2024 10:37 AM ESTPending Prescriptions: Disp Refills Atorvastatin Calcium 40 MG Oral Tablet [Ph*90 Tab*1 Sig: TAKE ONE PILL BY MOUTH AT BEDTIME * Telephone Encounter - Dalton Danielle, brand leader - 09/16/2024 10:37 AM EST Received message from [facility] regarding patient needing an appointment and labs. Call Placed, Left message on voicemail advising of required labs and to call back for an appointment. Thank you, Dalton Danielle Materials Planning Manager Mary [facility] 09/16/2024, 10:37 AM * Telephone Encounter - Hans Crow [facility] - 09/16/2024 9:53 AM EST Pending Prescriptions: Disp Refills Atorvastatin Calcium 40 MG Oral Tablet [Ph*90 Tab*1 Sig: TAKE ONE PILL BY MOUTH AT BEDTIME * Telephone Encounter - Hans Crow [facility] - 09/16/2024 9:47 AM EST Unable to authorize medication refills for pended medication(s) at this time. Part of the protocol criteria used for refill authorization was not satisfied. Per refill protocol patient should have lipid panel on file within past year. Reviewed AMP report, Care Gaps/Health Maintenance, medications list, and for any routine labs typically ordered for this patient. Lab orders placed. Please contact patient to schedule office visit with PRIMARY CARE and advise of labs ordered for blood draw.. Recommend patient to fast if able for labs. Patient may still have water and regular medications. Advise to obtain labs before requesting the next refill. Cancelled no showed last 2 appts. Needs to establish with new PCP. Last Visit: 10/16/2023 (in office), Visit date not found (telemedicine) Next Visit: Visit date not found After contacting patient, please forward request to the provider they schedule with (if unable to reach, use [facility]). Thank You, Hans Crow, Pharm-D Clinical Pharmacist [facility] [phone] 09/16/2024, 9:51 AM documented in this encounter Plan of Treatment Scheduled Procedures Name Priority Associated Diagnoses Date/Ti me COLONOSCOPY FLEXIBLE PROXIMA L DIAGNOSTIC Recall History of colonic polyps Health Maintenance Due Date Last Done Comments Alpha-1 Antitrypsin 1961 Zoster Vaccines (1 of 2) 1993 DISCUSS TOBACCO CESSATION (REFER TO SMARTSET #3291) 06/25/2016 06/25/2015 Depression Monitoring 2021 02/02/2020 HbA1c 06/27/2023 12/28/2022, 04/0 11/2021, 05/02/2021, Additional history exists Diabetic Eye Exam 11/16/2023 11/16/2022, , 01/01/2019, Additional history exists Colonoscopy 01/05/2024 01/04/2023, 1207/2020, 10/13/2020, Additional history exists Diabetic Foot Exam 03/29/2024 03/29/2023, 0 05/30/2022, 05/02/2021, Additional history exists COVID-19 Vaccine ( - season) 2024 Influenza Vaccine (FLU shot) (#1) 2024 10/05/2020, 09/05/2020, 07/30/2018 (Refused), Additional history exists O2 ASSESSMENT COMPLETED IN PAST YEAR FOR COPD 10/16/2024 10/16/2023 DTap/Tdap Vaccines (2 - Td or Tdap) 01/01/2028 01/01/2018 (Refused) Pneumococcal Vaccine: 65+ Years Completed 04/22/2020, 02/26/2020 RETIRED - COLONOSCOPY-ANNUAL AGES 18-100 Discontinued 01/04/2023, 10/13/2020, 10/13/2020, Additional history exists RETIRED - COLONOSCOPY-EVERY 5 YRS AGES 18-100 Discontinued 01/04/2023, 10/13/2020, 10/13/2020, Additional history exists Hepatitis B Vaccine Completed 04/16/2023, 08/17/2020, 04/13/2020, Additional history exists HPV (Gardasil) Vaccine Aged Out No lo nger eligible based on patient's age to complete this topic MENINGOCOCCAL (MENACTRA/MENVEO) Aged Out No longer eligible based on patient's age to complete this topic documented as of this encounter Medical Devices Implanted Type Area Store Receiving Clerk Device Identifier Shelf Expiration Date Model / Serial / Lot Clip Quick 2.8mm 230cm - [id number] Implanted:Qty: 2 on 08/19/2019 by Silvia Beaulieu MD at [facility] [employer] 03/04/2022 [id number] / / Lead Tempo Temp Pacing - [id number] Implanted:Qty: 1 on 02/16/2022 by Dalton Moulton MD at [facility] [employer] [id number] 11/29/2023 [id number] / / [id number] Valve Valentina 3 Ultra 26mm - [id number] Implanted:Qty: 1 on 02/17/2022 by Dalton Moulton MD at [facility] [employer] [id number] 10/19/2022 [id number] / / documented as of this encounter Visit Diagnoses Diagnosis Dyslipidemia, goal LDL below 160 Other and unspecified hyperlipidemia documented in this encounter Advance Directives * Full Code [...] Relationship Healthcare Agent Relationshi p Communication Krystal Medina Adult Child Health Care Agent
--- NOTE | 2024-09-25 23:23 | Electrocardiogram Report ---
Test Reason : Blood Pressure : */* mmHG Vent. Rate : 74 BPM Atrial Rate : 74 BPM P-R Int : 188 ms QRS Dur : 148 ms QT Int : 506 ms P-R-T Axes : 63 -62 -72 degrees QTcB Int : 561 ms Sinus rhythm with Premature supraventricular complexes Right bundle branch block Left anterior fascicular block Bifascicular block Left ventricular hypertrophy with repolarization abnormality ( R in aVL , Romhilt-Carranza ) Cannot rule out Septal infarct When compared with ECG of 17-Apr-2024 23:05, QT has lengthened T wave inversion now evident in Inferior leads T wave inversion now evident in Anterior leads Confirmed by Juan Manuel Vega ([id number]) on 09/25/2024 11:23:03 PM Referred By: Confirmed By: Juan Manuel Vega
--- NOTE | 2024-09-25 23:24 | Electrocardiogram Report ---
Test Reason : Blood Pressure : */* mmHG Vent. Rate : 78 BPM Atrial Rate : 78 BPM P-R Int : 192 ms QRS Dur : 154 ms QT Int : 478 ms P-R-T Axes : 104 247 77 degrees QTcB Int : 544 ms Suspect arm lead reversal, interpretation assumes no reversal Sinus rhythm with Premature supraventricular complexes Right bundle branch block Abnormal ECG When compared with ECG of 24-Sep-2024 18:58, Left anterior fascicular block is no longer Present T wave inversion no longer evident in Inferior leads T wave inversion no longer evident in Anterior leads Confirmed by Juan Manuel Vega ([id number]) on 09/25/2024 11:23:51 PM Referred By: REFERRED SELF Confirmed By: Juan Manuel Vega
[2024-09-26 05:01] LABS: Iron 74 mcg/dl (35-175); Total Iron Binding Cap Calc 193 mcg/dl (250-450); Transferrin (FE) Percent Satur 38 % (20-50); Unsaturated Iron Binding Cap 119 mcg/dl (155-355)
[2024-09-26 07:53] VITALS: TEMP 97.3
[2024-09-26 08:20] VITALS: RESP 16; O2SAT 96
--- NOTE | 2024-09-26 10:13 | Dialysis Progress Note ---
Date of Service September 26, 2024 Assessment & Plan (1) ESRD on dialysis: Plan: on RA; imaging w/ BL pleural effusions which have increased but still on smaller side; chemistries acceptable on 09/26 for HD today; t sat 38% > no venofer indicated -continue routine HD regimen MWF > next tx 09/29 as OP -cont 1.2L FR >>with HTN will be a bit more aggressive w/ fluid removal and check VS orthostatic 2 hhrs post tx Care coordinated w/ Dr Lancaster regarding dialysis plans, assessment respiratory and anemia status and f/u MRI; we are in agreement (2) SOB (shortness of breath): Plan: improving w/ steroids, nepbs (3) Diabetic foot ulcer: Plan: consider doing MRI while here to r/o R great toe OM >> if not doing MRI here will need to f/u as OP needs good exam of BLE distally >> chronic / recurrent wounds there historically Admission and Anticipated Discharge Date Admission Date: September 24, 2024 Subjective seen on dialysis; feeling very good, breathing issues resolved fully, for d/c after HD Review of Systems Review of Systems: All systems reviewed & are unremarkable except as noted in Subjective Physical Exam Constitutional: well developed, well nourished, + physical limitations, + frail appearing and cooperative; no acute distress Eyes: EOM intact bilaterally ENMT: Mouth: + dry oral mucous membranes Respiratory: normal respiratory effort Auscultation: + diminished lung sounds Cardiovascular: Rate/Rhythm: regular rate and regular rhythm Extremities: + AV fistula; no edema Gastrointestinal (Abdomen): Inspection/Auscultation: normal bowel sounds Percussion/Palpation: abdomen soft; abdomen nontender Musculoskeletal: Extremities: strength 5/5 throughout Skin: no rashes, warm and dry (R leg in boot) Results & Data Vital Signs (Past 12 Hours) Vital Signs Temp Pulse Pulse Resp BP Pulse Ox O2 Del Method 09/26/24 08:17 65 16 96 Room Air 09/26/24 07:52 36.3 C L 66 18 175/83 H 94 Room Air 09/26/24 06:56 60 09/26/24 03:23 36.7 C 62 18 168/67 H 99 Room Air 09/26/24 01:53 68 18 97 Room Air 09/25/24 23:21 65 09/25/24 22:59 36.4 C L 66 18 157/76 H 97 Room Air Laboratory Results none new (3) Diabetic foot ulcer Diabetes mellitus type: type 2 Diabetic foot ulcer location: toe Laterality: right Non-pressure ulcer stage: with fat layer exposed Qualified Code(s): E11.621 - Type 2 diabetes mellitus with foot ulcer; L97.512 - Non-pressure vp integrity kaci ulcer of other part of right foot with fat layer exposed
--- NOTE | 2024-09-26 14:06 | Discharge Summary ---
Date of Service September 26, 2024 Admission HPI Per Admitting Provider 79-year-old male with past medical significant for type 2 diabetes with peripheral vascular disease, diabetic retinopathy, end-stage renal disease on hemodialysis, hyperparathyroidism due to renal insufficiency, COPD, primary hypertension, aortic stenosis, BPH, anemia of chronic disease, depression with anxiety, ongoing tobacco use states smokes about half pack a day comes because of shortness of breath. Patient says since last 2 weeks is getting on and off short of breath. Any exertion making him short of breath. Today after dialysis was hypoxic but improved and was weaned off oxygen and sent home. At home he again was tachypneic and short of breath. For EMS he was saturating about 89%. He was also wheezing. He was given Solu-Medrol and DuoNeb and was brought in here. Currently off of oxygen is doing okay. But in the ER when he was ambulatory oxygen sats were dropping. Patient states he has dry cough. Denies any fevers. Denies chest pain. No headache. No dizziness. Vision is okay. No sore throat. Appetite is okay. No difficulty swallowing. No nausea. No abdominal pain. Bowel movements are okay. Patient states he ambulates with walker. States he lives alone. Currently patient is speaking in full sentence and is able to give his history. Hemodynamics are okay. Past medical history. As mentioned above Past surgical history. Aortogram. Cardiac cath. Colonoscopy. EGD. Exploratory laparotomy. Freeing of bowel additions. Cholecystectomy. Replaced aortic valve percutaneous. Social history. . Smokes half pack a day for last 63 years. No alcohol use. No drug use. Family history. Brother had cancer. Admission Exam Per Admitting Provider General- Not in distress Head- atraumatic Eyes- PERRL. ENT- oropharynx clear Neck- supple, no JVD. Lungs- clear to auscultation b/l wheezing heard, no crackles Heart- regular rhythm; no murmur, no gallop. Abdomen- normal bowel sounds, soft, nontender, no distension Extremities. No edema or erythema seen. Neuro- alert, oriented PERRL, no facial palsy; no dysarthria; moves extremities. Principal Diagnosis COPD exacerbation Discharge Exam Constitutional: Awake, alert oriented x 3; not in distress. Respiratory: Bilateral vesicular breath sound. Cardiovascular: RRR, no murmur, no edema Vessels: no JVD or carotid bruit Chest: normal inspection of chest Abdomen: normal bowel sounds, soft, nontender, no hepatosplenomegaly Musculoskeletal: no cyanosis or clubbing, extremities motor strength 5/5 Skin: no rashes, warm and dry normal turgor Neurologic: PERRL, EOMI, accommodation nl, no face palsy, no dysarthria CN's II- XI intact bilaterally and moves all extremities Psychiatric: A+Ox3, euthymic affect Discharge Data Allergies Allergy/AdvReac Type Severity Reaction Status Date / Time No Known Allergies Allergy Verified 09/11/24 13:23 Consultations 09/24/24 21:25 ED Decision to Admit Stat 09/25/24 08:00 Consult Nephrology Routine Ordered Studies 09/25/24 00:49 CT chest diagnostic wo con Urgent Hospital Course (1) SOB (shortness of breath): 79-year-old male with past medical significant for type 2 diabetes with peripheral vascular disease, diabetic retinopathy, end-stage renal disease on hemodialysis, hyperparathyroidism due to renal insufficiency, COPD, primary hypertension, aortic stenosis, BPH, anemia of chronic disease, depression with anxiety, ongoing tobacco use states smokes about half pack a day comes because of shortness of breath. COPD exacerbation Patient presented with shortness of breath Chest x-ray on admission showed pulmonary vascular congestion and interstitial thickening CT chest did not show any significant acute lung parenchymal abnormality. Stable emphysematous changes. During the hospitalization, Patient was treated with [id number] DuoNebs, IV steroid with improvement in shortness of breath. He was not requiring supplemental oxygen at the time of the discharge. He was discharged on 3 more days of 40 mg of prednisone ESRD Underwent dialysis as per nephrology during the hospitalization. Please note the above document was generated using voice recognition software. It may contain grammatical, syntax or spelling errors. Any formal questions or concerns about the content, text or information contained within the body of this dictation should be directly addressed to the provider for clarification Total Time Total Time Spent Total Time Spent (In Minutes): 34 Total Time Includes: Examination of the Patient, Discharge Planning, Medication Reconciliation, Communication With Other Providers and Other Discharge Plan Discharge Items Patient Disposition: Home - Self-Care Reason For Visit: COPD EX, HYPOXIA, CHF Discharge Diagnosis: Acute COPD exacerbation Activity: Resume your previous activity Non-emergency contact: Primary Care Provider Call non-emergency contact if: you have any medication questions and your symptoms worsen Follow-up/Referrals: Sampson Jimenez [Primary Care Provider] - Diet: Regular Addtl Attending Provider Instructions: You were admitted to the hospital due to COPD exacerbation. You were treated with breathing treatment during the hospitalization. You are prescribed prednisone 40 mg to be taken for 3 more days to complete the course. Pending Studies at Discharge: No Stand-Alone Forms: My [facility], Smoking Cessation Medications and DC Order Prescriptions: New prednisone 20 mg tablet 40 mg PO DAILY 3 Days Qty: 6 0RF Continued Januvia 25 mg tablet 25 mg PO QAM tamsulosin 0.4 mg capsule 0.4 mg PO HS atorvastatin 40 mg Tablet 40 mg PO QAM finasteride 5 mg Tablet 5 mg PO HS cholecalciferol (vitamin D3) [Vitamin D3] 1,000 unit (25 mcg) Tablet 1,000 unit PO QAM aspirin 81 mg Tablet,Delayed Release (Dr/Ec) 81 mg PO QAM pantoprazole 20 mg tablet,delayed release (DR/EC) 20 mg PO QAM albuterol sulfate 90 mcg/actuation HFA aerosol inhaler 2 puff INHALATION QID PRN (Reason: Wheezing) fluticasone furoate-vilanterol [Breo Ellipta] 200-25 mcg/dose Blister With Device 1 inh INHALATION DAILY PRN (Reason: Shortness Of Breath Or Wheezing) citalopram 20 mg tablet 20 mg PO QAM Velphoro 500 mg tablet,chewable 500 mg PO TIDM Xphozah 30 mg tablet 30 mg PO BID amlodipine 5 mg tablet 5 mg PO QAM gabapentin 100 mg capsule 100 mg PO DAILY PRN (Reason: NEUROPATHY) Discharge Orders: Discharge Order (Routine); Ordered 09/26/24 Ordered By: Jorge Gustafson/Other Patient Handouts: Managing Type 2 Diabetes Admission Data Admit Date/Time: 09/24/24 23:04 Attending Provider: Jorge Lancaster Admit Provider: Russell Pineda Primary Care Provider: Sampson Jimenez Other Providers: Russell Pineda; Helen Horta Other Interventions: Discharge Summary Assessment (RN) Last Done: 09/26/24 14:06
--- NOTE | 2024-09-26 14:56 | Electrocardiogram Report ---
Test Reason : Blood Pressure : */* mmHG Vent. Rate : 61 BPM Atrial Rate : 61 BPM P-R Int : 184 ms QRS Dur : 150 ms QT Int : 530 ms P-R-T Axes : 51 -74 -78 degrees QTcB Int : 533 ms Normal sinus rhythm Left axis deviation Left ventricular hypertrophy with QRS widening Right bundle branch block T wave abnormality, consider inferior ischemia Abnormal ECG When compared with ECG of 25-Sep-2024 05:38, T wave inversion now evident in Inferior leads Confirmed by Juan Manuel Vega ([id number]) on 09/26/2024 2:55:25 PM Referred By: REFERRED SELF Confirmed By: Juan Manuel Vega
[2024-09-26 16:22] VITALS: BP 132/61
[2024-09-26 16:27] VITALS: PULSE 67
== END 2024-09-26 16:02 | disposition home or self-care (01) | DRG 190 ==
LOC: ED 18:52 → 4W 23:04

== ENCOUNTER 2024-11-24 08:33 | Inpatient (IN) ==
--- NOTE | 2024-11-24 08:41 | Emergency Department Note ---
Impression & Plan Volume overload, End-stage renal disease on hemodialysis, Acute dyspnea, Acute exacerbation of chronic obstructive pulmonary disease, Elevated troponin, Tobacco abuse ED Provider Note NAME: FERNANDA FLORES AGE: 79 SEX: M : 1945 ARRIVES VIA: Ambulance INFORMANT: Patient, ED PROVIDER(S): Geoff Lange MD CHIEF COMPLAINT: MEDICAL DECISION MAKING: Patient presents due to concern for shortness of breath. Bibasilar crackles noted with associated diminished breath sounds. Known history of COPD and ESRD. IV was established and blood work was obtained patient ordered DuoNeb treatment as well as IV methylprednisolone. Patient with a normal white count hemoglobin of 10.9 chronic and stable. The patient's kidney function 5.76 known ESRD with a normal potassium. Patient's platelet count is unremarkable. Troponin 137. Patient's EKG did show slight elevation in lead III. No active chest pain. No changes in contiguous leads inferiorly and did have noted T WI in lead III prior. I did speak with on-call vegetable cutter Dr. Dhillon given the patient's known ESRD and missing his dialysis appointment today and likely has a combination of volume overload with pulmonary edema and bibasilar pleural effusions. I subsequently did speak with the on- call hospitalist for admission. I spoke with Negra Otero PA-C and the patient was admitted by Dr. Winters. Discussion w/ other healthcare providers: Dr. Polanco [facility] nephrology Negra Otero PA-C and Dr. Winters inpatient medicine service Prior /Outside records reviewed: His mother was not a good speller did review part of a discharge summary from September 26, 2024. Known history of PVD ESRD on HD hyperparathyroidism COPD hypertension aortic stenosis BPH continues to use tobacco at present for shortness of breath. Differential diagnosis: Reactive airway disease, pneumonia, pneumothorax, COPD, CHF, ACS, pulmonary embolism, musculoskeletal, GERD as well as other pathologies were considered. Diagnostics, as interpreted by me: ECG: Normal sinus rhythm, rate of 79, normal [place], wide QRS, right bundle branch block pattern, left axis deviation, elevation in lead III but noncontiguous leads lead II or aVF. T wave inversion noted in lead III from prior. No significant changes from comparison September 26, 2024. Cardiac monitoring: An order was placed for continuous cardiac monitoring. The monitor shows a rate of 82 with sinus rhythm. Patient was placed on pulse oximetry Medical decision rules: None Imaging studies: I informally interpreted the patient's Chest x-ray does show bilateral pleural effusions. with formal report to follow. HPI: Patient presents due to concern for shortness of breath. The patient states that it began yesterday to get progressively worse but does feel better this morning after using his rescue medication. Patient does have a history of COPD as well as ESRD. Last dialysis was on Sunday. Patient was to have an appointment at 9 AM this morning but because of symptoms he canceled and presented here. Patient denies any leg swelling. The patient states he has had a dry nonproductive cough. The patient does still smoke tobacco. The patient denies any falls or trauma he states that his appetite has been appropriate. No vomiting or diarrhea no abdominal pain. Patient was reportedly not hypoxic for EMS. No treatments were given prior to arrival. Patient denies any fevers or chills. Patient states that he does make some urine. PAST MEDICAL HISTORY: See Below PAST SURGICAL HISTORY: See Below SOCIAL HISTORY: See Below HOME MEDICATIONS: See Below ALLERGIES: See Below VITALS: See Below PHYSICAL EXAMINATION: GENERAL: NAD, non-toxic. EYE EXAM: Normal conjunctiva. PERRL, no anisocoria and EOM's grossly intact w/o pain. OROPHARYNX: Moist mucus membranes, grossly normal dentition. NECK: Trachea midline, no stridor. Supple, no nuchal rigidity, no adenopathy, non-tender. No signs of meningismus. FROM of the neck with good chin to chest and neck extension. LUNGS: Slight diminished breath sounds in the upper lung bowen, bibasilar crackles noted. Normal chest wall mechanics. HEART: NSR, systolic ejection murmur noted. ABDOMEN: Abdomen soft, non-tender, no masses, no rebound or guarding. BACK: No CVA TTP. SKIN: No rashes and no bruising. UPPER EXTREMITIES: Upper extremities are grossly normal. LOWER EXTREMITIES: Grossly normal, no edema. NEURO EXAM: A&O x3, cranial nerves II-XII grossly intact, normal speech, moves all 4 extremities. Past Med/Surg History Problem List (Updated 11/24/24 @ 16:07 by Geoff Lange MD) Tobacco abuse (Acute) Elevated troponin (Acute) Acute exacerbation of chronic obstructive pulmonary disease (Acute) Acute dyspnea (Acute) End-stage renal disease on hemodialysis (Acute) Volume overload (Acute) Open wound of right lower leg Open wound of right heel SOB (shortness of breath) Pulmonary vascular congestion (Acute) Non-ST elevation ID (NSTEMI) (Acute) ESRD on dialysis (Acute) Acute dyspnea (Acute) Traumatic open wound of left lower leg (Acute) Gram-positive bacteremia Severe sepsis Fever (Acute) Hyperglycemia (Acute) Bacteremia due to Enterococcus Encephalopathy AMS (altered mental status) (Acute) Elevated troponin I level (Acute) Dizziness (Acute) Acute hyponatremia (Acute) Dizziness (Acute) Abnormal ECG (Acute) CKD (chronic kidney disease) (Acute) Tobacco abuse (Acute) Dialysis AV fistula malfunction Encounter for pre-operative examination Hypertension (Chronic) Encounter for pre-operative examination CKD (chronic kidney disease), stage IV Angina pectoris Gastritis Hypoxia CHF (congestive heart failure) SOB (shortness of breath) DVT prophylaxis Acute respiratory failure with hypoxia CHF (congestive heart failure) (Acute) Renal failure (Acute) Hypoxemia (Acute) SOB (shortness of breath) (Acute) Epigastric abdominal pain (Acute) SBO (small bowel obstruction) Abdominal pain (Acute) SBO (small bowel obstruction) (Acute) Chest pain Chest pain (Acute) Elevated troponin I level (Acute) Abnormal EKG (Acute) Elevated lipase (Acute) Severe calcific aortic valve stenosis Coffee ground emesis Ambulatory dysfunction (Acute) Generalized weakness (Acute) Weakness (Acute) Acute dehydration (Acute) Diarrhea (Acute) Clostridioides difficile diarrhea Peritoneal dialysis catheter in situ since removed Tobacco use ESRD (end stage renal disease) on dialysis (Acute) M/W/F > [facility] [place] CKD (chronic kidney disease) stage 5, GFR less than 15 ml/min follows with Dr. Jay Hyperlipidemia BPH (benign prostatic hyperplasia) Diabetes mellitus, type 2 NIDDM Chronic anemia Medical History Diabetic foot ulcer Dialysis patient Tobacco abuse PAD (peripheral artery disease) CHF (congestive heart failure) AV fistula left wrist Osteoarthritis Anxiety and depression Hypertension Surgical History S/P TAVR (transcatheter aortic valve replacement) SBO (small bowel obstruction) with surgical intervention History of esophagogastroduodenoscopy (EGD) History of colonoscopy History of cholecystectomy History of tooth extraction History of cataract surgery RT/LEFT History of procedure for peripheral vascular disease LEFT LEG (STENT PLACED) Cardiac murmur no cardio Family History Brother Cancer Social History Smoking Status: Current every day smoker Tobacco Type: Cigarettes Age Started Using Tobacco: 16; packs per day: 0.5; Cigarettes Per Day: 10; Second Hand Exposure: No; Do You Dip or Chew Tobacco: No; Hx Alcohol Use: No Hx Substance Use: No Preferred Language: Lebanese Communication Ability: Effective Visual Impairment: No Limitations Hearing Ability: Hard of Hearing Antique Dealer Required: No Beliefs That Will Affect Care: None marital status: Single Current Living Situation: Alone Current Living Situation Comment: daughter helps with cooking and cleaning current occupational status: retired 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 Feels Safe at Home: Yes Diet: regular during the past year weight has: remained stable Assistive Devices: Walker Allergies Allergies Allergy/AdvReac Type Severity Reaction Status Date / Time No Known Allergies Allergy Verified 10/23/24 13:05 Home Meds Home Medications Medication Instructions Recorded Confirmed atorvastatin 40 mg tablet 40 mg PO QAM 07/31/19 11/24/24 cholecalciferol (vitamin D3) 25 1,000 unit PO PM 07/31/19 11/24/24 mcg (1,000 unit) tablet (Vitamin D3) finasteride 5 mg tablet 5 mg PO HS 07/31/19 11/24/24 aspirin 81 mg tablet,delayed 81 mg PO QAM 01/06/20 11/24/24 release albuterol sulfate 90 mcg/actuation 2 puff inhalation QID PRN Wheezing 04/09/24 11/24/24 aerosol inhaler fluticasone furoate 200 1 inh inhalation DAILY PRN 04/09/24 11/24/24 mcg-vilanterol 25 mcg/dose Shortness Of Breath Or Wheezing inhalation powder (Breo Ellipta) pantoprazole 20 mg tablet,delayed 20 mg PO QAM 04/09/24 11/24/24 release tamsulosin 0.4 mg capsule 0.4 mg PO HS 08/21/24 11/24/24 amlodipine 5 mg tablet 5 mg PO QAM 09/24/24 11/24/24 citalopram 20 mg tablet 20 mg PO PM 09/24/24 11/24/24 gabapentin 100 mg capsule 100 mg PO DAILY PRN NEUROPATHY 09/24/24 11/24/24 sucroferric oxyhydroxide 500 mg 500 mg PO TIDM 09/24/24 11/24/24 chewable tablet (Velphoro) tenapanor 30 mg tablet (Xphozah) 30 mg PO BID 09/24/24 11/24/24 linagliptin 5 mg tablet (Tradjenta) 5 mg PO DAILY 11/24/24 11/24/24 Results & Data (ED) Vital Signs Vital Signs - 24 hr 11/24/24 08:41 11/24/24 08:41 11/24/24 08:44 Temperature 36.8 C Temperature Source Oral Pulse Rate 79 Pulse Rate [Apical] Respiratory Rate 22 Respiratory Effort / Characteristics Non-Labored Spontaneous Non-Labored Spontaneous Respiratory Depth Normal Normal Respiratory Pattern Regular Blood Pressure 139/71 Blood Pressure [Right Arm] Blood Pressure Mean 93 Blood Pressure Mean [Right Arm] Blood Pressure Position Sitting Blood Pressure Position [Right Arm] Pulse Oximetry 98 98 Oxygen Delivery Method Room Air Room Air Room Air Oxygen Flow Rate Sepsis Recent Fever Within 48 Hours No Sepsis New/Unexplained Change in Mental Status No Sepsis Action Taken by Nursing No Action Required Oxygen Flow Rate - Titration Pulse Oximetry Post Tiitration 11/24/24 08:53 11/24/24 09:18 11/24/24 09:19 Temperature Temperature Source Pulse Rate 79 Pulse Rate [Apical] 78 Respiratory Rate 20 Respiratory Effort / Characteristics Non-Labored Spontaneous Respiratory Depth Normal Respiratory Pattern Blood Pressure Blood Pressure [Right Arm] 139/71 Blood Pressure Mean Blood Pressure Mean [Right Arm] 93 Blood Pressure Position Blood Pressure Position [Right Arm] Sitting Pulse Oximetry 97 98 Oxygen Delivery Method Room Air Nasal Cannula Oxygen Flow Rate 2 Sepsis Recent Fever Within 48 Hours Sepsis New/Unexplained Change in Mental Status Sepsis Action Taken by Nursing Oxygen Flow Rate - Titration 2 Pulse Oximetry Post Tiitration 98 Home Medications Current Medication List: was personally reviewed by me Laboratory Data Attestation: I reviewed the patient's lab results. 11/24/24 08:51 11/24/24 08:51 Lab Results 11/24/24 11/24/24 Range/Units 08:41 08:51 WBC 9.58 (4.8-10.8) K/ul RBC 3.60 L (4.70-6.10) M/uL Hgb 10.9 L (14.0-18.0) g/dl Hct 34.5 L (42.0-52.0) % MCV 95.8 (80.0-100.0) fL MCH 30.3 (25.0-34.0) pg MCHC 31.6 L (32.0-36.0) g/dL RDW Std Deviation 56.1 H (36.4-46.3) fL RDW Coeff of Danny 15.9 H (11.5-14.5) % Plt Count 158 (130-400) K/uL MPV 11.5 (9.4-12.4) fL Immature Gran % (Auto) 0.3 % Neut % (Auto) 72.6 % Lymph % (Auto) 12.6 % [place] % (Auto) 11.4 % Eos % (Auto) 2.8 % Baso % (Auto) 0.3 % Neut # (Auto) 6.95 H (1.40-6.50) K/uL Lymph # (Auto) 1.21 (1.20-3.40) K/uL [place] # (Auto) 1.09 H (0.11-0.59) K/uL Eos # (Auto) 0.27 (0.00-0.50) K/uL Baso # (Auto) 0.03 (0.00-0.20) K/uL Immature Gran # (Auto) 0.03 (0.01-0.20) K/uL Sodium 134 L (136-145) mmol/L Potassium 3.9 (3.5-5.1) mmol/L Chloride 92 L (98-107) mmol/L Carbon Dioxide 29 (21-32) mmol/L Anion Gap 13 H (3-11) BUN 46 H (6-23) mg/dl Creatinine 5.76 H* (0.6-1.4) mg/dl Est Cr Clr Drug Dosing 10.1 ml/min eGFR 9.25 BUN/Creatinine Ratio 8.0 L (10-20) Glucose 179 H (70-99(Fasting)) mg/dl Calcium 10.7 H (8.6-10.3) mg/dl Magnesium 2.1 (1.7-2.4) mg/dl Total Bilirubin 0.8 (0.2-1.0) mg/dl AST 16 (13-39) U/L ALT 11 (7-52) U/L Alkaline Phosphatase 86 (34-104) U/L Troponin I High Sens 137.3 H* (0-20) pg/ml Total Protein 7.3 (6.0-8.3) gm/dl Albumin 4.2 (3.4-5.0) gm/dl Globulin 3.1 (2.5-4.0) gm/dl Albumin/Globulin Ratio 1.4 (0.9-2) Procalcitonin 0.34 (0-0.5) ng/ml Adenovirus (PCR) Not Detected (NotDetected) B. pertussis DNA (PCR) Not Detected (NotDetected) B.parapertussis DNA PCR Not Detected (NotDetected) C. pneumoniae DNA (PCR) Not Detected (NotDetected) Coronavirus OC43 (PCR) Not Detected (NotDetected) Coronavirus HKU1 (PCR) Not Detected (NotDetected) Coronavirus 229E (PCR) Not Detected (NotDetected) SARS-CoV-2 (PCR) Not Detected (NotDetected) Coronavirus NL63 (PCR) Not Detected (NotDetected) Human Metapneumovir PCR Not Detected (NotDetected) Influenza Type A (PCR) Not Detected (NotDetected) Influenza Type B (PCR) Not Detected (NotDetected) M. pneumoniae (PCR) Not Detected (NotDetected) Parainfluenza 1 (PCR) Not Detected (NotDetected) Parainfluenza 2 (PCR) Not Detected (NotDetected) Parainfluenza 3 (PCR) Not Detected (NotDetected) Parainfluenza 4 (PCR) Not Detected (NotDetected) RSV (PCR) Not Detected (NotDetected) Entero/Rhino (PCR) Not Detected (NotDetected) Administered Medications Albuterol (Albut/Ipratrop 3mg/0.5mg Neb 3 Ml Vial) 3 ml NEB QIDR [facility]; Protocol Stop: 02/19/25 11:42 Last Admin: 11/24/24 15:09 Dose: Not Given Documented By: [id number] Admin: 11/24/24 15:09 Dose: Not Given Documented By: [id number] Insulin Aspart (Insulin Aspart Per Unit Charge) 0 units SC ACHS [facility] Stop: 12/24/24 11:42 Last Admin: 11/24/24 12:00 Dose: Not Given Documented By: KACharmaine Discontinued Medications Albuterol (Albut/Ipratrop 3mg/0.5mg Neb 3 Ml Vial) 3 ml INH NOW STA Stop: 11/24/24 08:47 Last Admin: 11/24/24 08:51 Dose: 3 ml Documented By: CC Epoetin Darryl (Epoetin Darryl 10,000 Units/Ml Vial) 10,000 units SQ NOW STA Stop: 11/24/24 11:48 Last Admin: 11/24/24 15:26 Dose: 10,000 units Documented By: CC(2) Methylprednisolone (Methylprednisolone 125 Mg/2 Ml Vial) 125 mg IV NOW STA Stop: 11/24/24 08:47 Last Admin: 11/24/24 08:50 Dose: 125 mg Documented By: CC Imaging Data Radiologist's Impression: Chest X-Ray 11/24/24 08:46 XR chest 1V portable CLINICAL HISTORY: Dyspnea. COMPARISON STUDY: Chest radiograph September 24, 2024. Chest CT September 25, 2024. FINDINGS: Prosthetic aortic valve is again noted. The heart is mildly enlarged. There is no pneumothorax. Small bilateral pleural effusions with associated bibasilar opacities are present. Interstitial thickening is noted. IMPRESSION: Cardiomegaly with moderate interstitial pulmonary edema, small bilateral pleural effusions and associated bibasilar opacities which favor atelectasis. ACT 112: Negative or not required by law. Electronically signed by: Osito Zambrano M.D. 11/24/2024 9:14 AM Discharge Plan Visit Data Chief Complaint: Shortness of Breath/Dyspnea ED Provider: Geoff Lange Discharge Problem: Volume overload, End-stage renal disease on hemodialysis, Acute dyspnea, Acute exacerbation of chronic obstructive pulmonary disease, Elevated troponin, Tobacco abuse Patient Disposition: Admitted As Inpatient Discharge Instructions Interventions: ED Discharge Assessment Last Done: 11/24/24 11:43 Discharge Problem: Volume overload Qualifiers: Hypervolemia type: other Qualified Code(s): E87.79 - Other fluid overload
[2024-11-24] MEDS: methylPREDNISolone 125 MG/2 ML VIAL IV STA (08:50)
[2024-11-24] MEDS: ALBUT/IPRATROP 3MG/0.5MG NEB 3 ML VIAL INH STA (08:51)
[2024-11-24 09:11] LABS: Basophils # (auto) 0.03 K/uL (0.00-0.20); Basophils % (auto) 0.3 %; Eosinophils # (auto) 0.27 K/uL (0.00-0.50); Eosinophils % (auto) 2.8 %; Hematocrit (blood only) 34.5 % (42.0-52.0); Hemoglobin 10.9 g/dl (14.0-18.0); Immature Granulocytes # (auto) 0.03 K/uL (0.01-0.20); Immature Granulocytes % (auto) 0.3 %; Lymphocytes # (auto) 1.21 K/uL (1.20-3.40); Lymphocytes % (auto) 12.6 %; Mean Corpuscular Hemoglobin 30.3 pg (25.0-34.0); Mean Corpuscular Hgb Conc 31.6 g/dL (32.0-36.0); Mean Corpuscular Volume 95.8 fL (80.0-100.0); Mean Platelet Volume 11.5 fL (9.4-12.4); Monocytes # (auto) 1.09 K/uL (0.11-0.59); Monocytes % (auto) 11.4 %; Neutrophils # (auto) 6.95 K/uL (1.40-6.50); Neutrophils % (auto) 72.6 %; Platelet Count 158 K/uL (130-400); RDW Coefficient of Variation 15.9 % (11.5-14.5); RDW Standard Deviation 56.1 fL (36.4-46.3); White Blood Count 9.58 K/ul (4.8-10.8)
--- NOTE | 2024-11-24 09:16 | XRay Report ---
XR chest 1V portable CLINICAL HISTORY: Dyspnea. COMPARISON STUDY: Chest radiograph September 24, 2024. Chest CT September 25, 2024. FINDINGS: Prosthetic aortic valve is again noted. The heart is mildly enlarged. There is no pneumotho rax. Small bilateral pleural effusions with associated bibasilar opacities are present. Interstitial thickening is noted. IMPRESSION: Cardiomegaly with moderate interstitial pulmonary edema, small bilateral pleural effusio ns and associated bibasilar opacities which favor atelectasis. ACT 112: Negative or not required by law. Electronically signed by: Osito Zambrano M.D. 11/24/2024 9:14 AM
--- OUTSIDE RECORDS SUMMARY | 2024-11-24 09:35 | External Medical Summary | Summary of Care ---
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 Active Nephrocaps 1 MG Oral CapsuleIndicati ons:ESRD (end stage renal disease) (HCC) Take by mouth 1 Capsule in the morning. 90 Capsule 1 022 Active OneTouch Delica Lancets 33GIndications: Type 2 DM with CKD stage 4 and hypertension ([facility]) TESTING ONCE A DAY. E 11.9 100 [...] 2 diabetes mellitus with end-stage renal disease ([facility]) USE ONCE DAILY E11.9 100 Strip 3 023 Active DAPTOmycin IV IV (AMBULATORY) [...] MOUTH AT BEDTIME 90 Tablet 024 Active amLODIPine Besylate 5 MG Oral Tablet (Norvasc)Indica tions:Primary hypertension Take 1 Tablet by mouth in the morning. Patient needs to scheduled with new PCP for further refills call [phone]. 30 Tablet 025 Active Finasteride 5 MG Oral Tablet (Proscar)Indica tions:Hypertrop hy of prostate without urinary obstruction Take 1 Tablet by mouth in the morning. Patient needs to scheduled with new PCP for further refills call [phone]. 30 Tablet 025 Active Tamsulosin HCl 0.4 MG Oral Capsule (Flomax)Indicat ions:Hypertroph y of prostate without urinary obstruction Take 1 Capsule by mouth in the morning. Patient needs to scheduled with new PCP for further refills call [phone]. 30 Capsule 025 Active Finasteride 5 MG Oral Tablet (Proscar)Indica tions:Hypertrop hy of prostate without urinary obstruction TAKE 1 TABLET BY MOUTH EVERY DAY 30 Tablet 024 2024 Discontinued amLODIPine Besylate 5 MG Oral Tablet (Norvasc)Indica tions:Primary hypertension TAKE 1 TABLET BY MOUTH EVERY DAY IN THE MORNING 30 Tablet 024 2024 Discontinued Tamsulosin HCl 0.4 MG Oral Capsule (Flomax)Indicat ions:Hypertroph y of prostate without urinary obstruction TAKE 1 CAPSULE BY MOUTH EVERY DAY 30 Capsule 024 2024 Discontinued documented as of this encounter (statuses as of 11/12/2024) Active Problems Problem Noted Date Diagnosed Date [...] as of this encounter (statuses as of 11/12/2024) Resolved Problems Problem Noted Date Diagnosed Date [...] the lower extremities 01/01/2018 07/30/2018 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 [...] as of this encounter (statuses as of 11/12/2024) Immunizations Name Administration Dates Next Due Hepatitis B, 20+ yrs 08/17/2020,04/13/20 20,03/16/2020,02/16 Pneumococcal Conjugate Vacc, 13 Valent (Prevnar) 02/26/2020 Pneumococcal Polysaccharide PPV23 (Pneumovax) 04/22/2020 Seasonal Influenza, High Dos e, Trivalent, PF, IM (Fluzone HD) 10/05/2020,09/05/2020 documented as of this encounter Social History Tobacco Use Types Packs/Day Years Used Date Smoking Tobacco: Every Day Cigarettes 0.5 63.8 Started: 1963 Pipe Smokeless Tobacco: Never Comments:Currently [...] Assessment Author No 04/08/2022 10:00 PM Monika Jonh i, RN * Do you have difficulty dressing or bathing? (5 years old or older) Answer Date of Assessment Author No 04/08/2022 10:00 PM EDT [place] i, Monika M, RN * Because of a physical, mental, or emotional condition, do you have difficulty doing errands alone such as visiting a doctors office or shopping? (15 years old or older) Answer Date of Assessment Author No 04/08/2022 10:00 PM EDT Monika Rich i RN documented as of this encounter Mental Status * Because of a physical, mental, or emotional condition, do you have serious difficulty concentrating, remembering, or making decisions? (5 years old or older) Answer Entry Date Author No 04/08/2022 10:00 PM EDT Monika Rich i RN documented in this encounter Miscellaneous Notes * Telephone Encounter - Daysi Viera MD - 11/12/2024 1:24 PM ESTSigned Prescriptions: Disp Refills amLODIPine Besylate 5 MG Oral Tablet (Norv*30 Tab*0 Sig: Take 1 Tablet by mouth in the morning. Patient needs to scheduled with new PCP for further refills call [phone]. Authorizing Provider: DAYSI VIERA Finasteride 5 MG Oral Tablet (Proscar) 30 Tab*0 Sig: Take 1 Tablet by mouth in the morning. Sascha lozada needs to scheduled with new PCP for further refills call [phone]. Authorizing Provider: DAYSI VIERA Tamsulosin HCl 0.4 MG Oral Capsule (Flomax)30 Cap*0 Sig: Take 1 Capsule by mouth in the morning. Patient needs to scheduled with new PCP for further refills call [phone]. Authorizing Provider: DAYSI VIERA -------- * Telephone Encounter - Guadalupe Venegas CMA - 11/12/2024 1:17 PM ESTPending Prescriptions: Disp Refills amLODIPine Besylate 5 MG Oral Tablet (Norv*30 Tab*0 Sig: Take 1 Tablet by mouth in the morning. Patient needs to scheduled with new PCP for further refills call [phone]. Finasteride 5 MG Oral Tablet (Proscar) 30 Tab*0 Sig: Take 1 Tablet by mouth in the morning. Patient needs to scheduled with new PCP for f urther refills call [phone]. Tamsulosin HCl 0.4 MG Oral Capsule (Flomax)30 Cap*0 Sig: Take 1 Capsule by mouth in the morning. Patient needs to scheduled with new PCP for further refills call [phone]. * Telephone Encounter - Guadalupe Venegas CMA - 11/12/2024 1:14 PM EST Did you pend patient's preferred pharmacy and medication before forwarding?yes Pharmacy: [id number] Pending Prescriptions: Disp Refills amLODIPine Besylate 5 MG Oral Tablet (Nor*90 Tab*2 Sig: TAKE 1 TABLET BY MOUTH EVERY DAY IN THE MORNING Finasteride 5 MG Oral Tablet (Proscar) [P*90 Tab*2 Sig: TAKE 1 TABLET BY MOUTH EVERY DAY Tamsulosin HCl 0.4 MG Oral Capsule (Floma*90 Cap*2 Sig: TAKE 1 CAPSULE BY MOUTH EVERY DAY Last Visit: 10/16/2023 (in office), Visit date not found (telemedicine) Next Visit: Visit date not found If no future appointments scheduled, and last appointment is greater than a year ago, please schedule patient for a follow-up appointment Last date the medication was ordered: 10/10/24 Is this request for a controlled substance?No Urine Drug Screen:No results found. However, due to the size of the patient record, not all encounters were searched. Please check Results Review for a complete set of results. Patient Phone Numbers Labs: Lab Results Component Value Date/Time CREAT 3.37 (A) 05/26/2024 12:00 AM CREAT 3.9 (H) 09/11/2019 02:05 PM POTASSIUM 3.7 05/26/2024 12:00 AM POTASSIUM 4.2 09/11/2019 02:05 PM TSH 3.46 03/28/2022 06:01 AM TSH 1.790 12/15/2019 12:00 AM TSH 1.28 05/05/2019 03:04 PM LDL 63 12/28/2022 01:32 PM LDL 53 12/15/2019 12:00 AM LDL 67 09/11/2019 02:05 PM LDLCALC 40.60 12/15/2019 12:00 AM ALT 20 09/18/2023 12:00 AM ALT 20 01/23/2019 12:16 PM HGBA1C 5.8 (H) 12/28/2022 01:32 PM HGBA1C 5.7 (H) 08/20/2020 12:14 PM * Telephone Encounter - Interface, E-Rx Ss Inbound - 11/12/2024 11:04 AM EST Pending Prescriptions: Disp Refills amLODIPine Besylate 5 MG Oral Tablet [Phar*30 Tab*0 Sig: TAKE 1 TABLET BY MOUTH EVERY DAY IN THE MORNING Finasteride 5 MG Oral Tablet [Pharmacy Med*30 Tab*0 Sig: TAKE 1 TABLET BY MOUTH EVERY DAY Tamsulosin HCl 0.4 MG Oral Capsule [Pharma*30 Cap*0 Sig: TAKE 1 CAPSULE BY MOUTH EVERY DAY * Telephone Encounter - Marilee Jackson, riding teacher - 11/12/2024 10:19 AM EST Pending Prescriptions: Disp Refills amLODIPine Besylate 5 MG Oral Tablet [Phar*30 Tab*0 Sig: TAKE 1 TABLET BY MOUTH EVERY DAY IN THE MORNING Finasteride 5 MG Oral Tablet [Pharmacy Med*30 Tab*0 Sig: TAKE 1 TABLET BY MOUTH EVERY DAY Tamsulosin HCl 0.4 MG Oral Capsule [Pharma*30 Cap*0 Sig: TAKE 1 CAPSULE BY MOUTH EVERY DAY * Telephone Encounter - Ni Flores [facility] - 11/11/2024 8:50 AM ESTPending Prescriptions: Disp Refills amLODIPine Besylate 5 MG Oral Tablet [Phar*30 Tab*0 Sig: TAKE 1 TABLET BY MOUTH EVERY DAY IN THE MORNING Finasteride 5 MG Oral Tablet [Pharmacy Med*30 Tab*0 Sig: TAKE 1 TABLET BY MOUTH EVERY DAY Tamsulosin HCl 0.4 MG Oral Capsule [Pharma*30 Cap*0 Sig: TAKE 1 CAPSULE BY MOUTH EVERY DAY * Telephone Encounter - Ni Flores [facility] - 11/11/2024 8:50 AM EST Please contact patient so that an appointment can be scheduled with his PRIMARY CARE provider before this refill can be authorized. After contacting patient, please forward request to No primary careprovider on file.. Last Visit: 10/16/2023 (in office), Visit date not found (telemedicine) Next Visit: Visit date not found Ni Portillo, PharmD Clinical Pharmacist [facility] [phone] 11/11/2024 8:50 AM documented in this encounter Plan of Treatment Scheduled Procedures Name Priority Associated Diagnoses Date/Ti me COLONOSCOPY FLEXIBLE PROXIMA L DIAGNOSTIC Recall History of colonic polyps Health Maintenance Due Date Last Done Comments Alpha-1 Antitrypsin 1963 O2 ASSESSMENT COMPLETED IN PAST YEAR FOR COPD 1963 Zoster Vaccines (1 of 2) 1993 DISCUSS TOBACCO CESSATION (REFER TO SMARTSET #3291) 06/25/2016 06/25/2015 Depression Monitoring 2021 02/02/2020 HbA1c 06/27/2023 12/28/2022, 04/0 11/2021, 05/02/2021, Additional history exists Diabetic Eye Exam 11/16/2023 11/16/2022, , 01/01/2019, Additional history exists Colonoscopy 01/05/2024 01/04/2023, 1207/2020, 10/13/2020, Additional history exists Diabetic Foot Exam 03/29/2024 03/29/2023, 0 05/30/2022, 05/02/2021, Additional history exists COVID-19 Vaccine ( season) 2024 Influenza Vaccine (FLU shot) (#1) 2024 10/05/2020, 09/05/2020, 07/30/2018 (Refused), Additional history exists DTap/Tdap Vaccines (2 - Td or Tdap) 01/01/2028 01/01/2018 (Refused) Pneumococcal Vaccine: 50+ Years Completed 04/22/2020, 02/26/2020 RETIRED - COLONOSCOPY-ANNUAL [...] this encounter Medical Devices Implanted Type Area Screening Unit Registered Nurse Device Identifier Shelf Expiration Date Model / Serial / Lot Clip Quick 2.8mm 230cm - [id number] Implanted:Qty: 2 on 08/19/2019 by Silvia Beaulieu MD at OR [facility] [employer] 03/04/2022 [id number] / / Lead Tempo Temp Pacing - [id number] Implanted:Qty: 1 on 02/16/2022 by Dalton Moulton MD at [facility] [employer] [id number] 11/29/2023 [id number] / / [id number] Valve Valentina 3 Ultra 26mm - [id number] Implanted:Qty: 1 on 02/17/2022 by Dalton Moulton MD at [facility] [employer] [id number] 10/19/2022 [id number] / / documented as of this encounter Visit Diagnoses Diagnosis Primary hypertension Unspecified essential hypertension 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
[2024-11-24 09:36] LABS: Albumin Globulin Ratio 1.4 (0.9-2); Albumin Level 4.2 gm/dl (3.4-5.0); Bilirubin,Total 0.8 mg/dl (0.2-1.0); Calcium 10.7 mg/dl (8.6-10.3); Creatinine Clr Calc Pharmacy 10.1 ml/min; Globulin 3.1 gm/dl (2.5-4.0); Magnesium 2.1 mg/dl (1.7-2.4); Potassium 3.9 mmol/L (3.5-5.1); Total Protein 7.3 gm/dl (6.0-8.3)
[2024-11-24 09:55] LABS: Adenovirus PCR Not Detected (NotDetected); Bordetella parapertussis PCR Not Detected (NotDetected); Bordetella pertussis PCR Not Detected (NotDetected); Chlamydia pneumoniae PCR Not Detected (NotDetected); Coronavirus 229E PCR Not Detected (NotDetected); Coronavirus CoV-2 (COVID19)PCR Not Detected (NotDetected); Coronavirus HKU1 PCR Not Detected (NotDetected); Coronavirus NL63 PCR Not Detected (NotDetected); Coronavirus OC43PCR Not Detected (NotDetected); Human Metapneumovirus PCR Not Detected (NotDetected); Influenza A PCR Not Detected (NotDetected); Influenza B PCR Not Detected (NotDetected); Mycoplasma pneumoniae PCR Not Detected (NotDetected); Parainfluenza Virus 1 PCR Not Detected (NotDetected); Parainfluenza Virus 2 PCR Not Detected (NotDetected); Parainfluenza Virus 3 PCR Not Detected (NotDetected); Parainfluenza Virus 4 PCR Not Detected (NotDetected); Respiratory Syncytial VirusPCR Not Detected (NotDetected); Rhinovirus/Enterovirus PCR Not Detected (NotDetected)
[2024-11-24 10:11] LABS: Troponin I High Sensitivity 137.3 pg/ml (0-20)
--- NOTE | 2024-11-24 11:05 | History & Physical Report ---
Date of Service November 24, 2024 Assessment & Plan (1) SOB (shortness of breath): (2) ESRD on dialysis: (3) Hypertension: (4) Diabetes mellitus, type 2: (5) Tobacco abuse: Plan This is an 79-year-old male who has a significant past medical history of ESRD on HD Sunday, T2DM, diabetic peripheral neuropathy, diabetic retinopathy, PVD, secondary hyperparathyroidism, COPD, tobacco abuse, hypertension, aortic stenosis s/p TAVR in 2021, anemia of chronic disease, BPH who presents to ED secondary to shortness of breath x 1 month. SOB Hypoxia Elevated troponin admit to med tele suspect hypoxia/SOB multifactorial in setting of COPD exac and volume overload in need of HD received IV solumedrol 125mg and duoneb in ED respiratory biofire panel negative IV solumedrol 40mg BID, scheduled duonebs, muccinex, incentive spirometry Doxycycline 100mg bid suspect elevated trop in setting of ESRD/Hypoxia, pt reports remote episode of CP but ecg not ischemic obtain echocardiogram and cycle trops ESRD: HD MWF, Dr. Ortiz on board for HD needs, FR 1.2L, daily weights T2DM: last a1c 09/25/24 6.2, ISS per protocol, hold tradjenta Hx of TAVR/HTN: continue amlodipine Hx of R great toe wound: currently no open wounds, recent MRI on 11/06/24 showed chronic cellulitic changes, no evidence of OM, he has an appt with Dr. Guillermina Gaxiola podiatry on 11/27, continue darco shoe DVT ppx: SQ Heparin DNR/DNI PCP: Tony Dispo: admit to [facility], PT/OT consulted, pt lives alone, walks with a walker, daughter requesting pt be set up with nebulizer equipment and medication at discharge Update was provided to Krystal Valdez, daughter, I spent a total of 76 minutes reviewing notes, outpatient records, labs, medication, coordinating, documenting and providing care for this patient excluding time spent in the performance of separately billed services. Pt was seen and examined in collaboration with Dr. Winters, please see addendum History of Present Illness Chief Complaint: SOB x 1 month. Primary Care Provider: Sampson Jimenez This is an 79-year-old male who has a significant past medical history of ESRD on HD Sunday, T2DM, diabetic peripheral neuropathy, diabetic retinopathy, PVD, secondary hyperparathyroidism, COPD, tobacco abuse, hypertension, aortic stenosis s/p TAVR in 2021, anemia of chronic disease, BPH who presents to ED secondary to shortness of breath x 1 month. History was obtained from patient as well as external chart review. His last hemodialysis was on Sunday. Patient was last confined in September 2024 secondary to a COPD exacerbation. His hospital course was unremarkable. He reports over the last month he has been more short of breath. He feels the shortness of breath has stayed the same, "but I figured it was time to get evaluated." He did not go to dialysis today and opted to come to ED instead. He has a chronic cough with his COPD, but states it is minimal and minimally productive. He feels this is unchanged. He does admit to slight increased wheezing. He has been doing nebulizer treatments twice daily. He denies any recent illness over the last month, sick contacts, fever, chills, sweats, lightheadedness, dizziness, Hemoptysis,nausea, vomiting, abdominal pain, diarrhea, dysuria, increased urgency or frequency with urination or hematuria. He does still make urine. He does not weigh himself on a regular basis, but feel his weights at dialysis are unchanged. He does not follow his fluid restriction. He does report an episode of left-sided nonradiating chest pain approximately 1 week ago when he was exerting himself. He states he does occasionally get chest pain when he exerts himself. After resting for 15 minutes it resolved. He was not evaluated for th is. He denied any radiation of symptoms, diaphoresis or nausea associated with this. in ED patient did require 2 L of supplemental oxygen. He also received 125 mg of IV Solu-Medrol and a DuoNeb treatment. He reports feeling better since arrival to the ED. Of note patient does follow with podiatry/wound care. He reports an upcoming appointment for his right great toe. He currently uses a Darco shoe. Currently he denies any open wounds. He recently underwent an MRI in early November which revealed chronic cellulitic changes, but no evidence of osteomyelitis. Allergies Allergy/AdvReac Type Severity Reaction Status Date / Time No Known Allergies Allergy Verified 10/23/24 13:05 Home Medications Medication Instructions Recorded Confirmed Type atorvastatin 40 mg tablet 40 mg PO QAM 07/31/19 11/24/24 History cholecalciferol (vitamin D3) 25 1,000 unit PO PM 07/31/19 11/24/24 History mcg (1,000 unit) tablet (Vitamin D3) finasteride 5 mg tablet 5 mg PO HS 07/31/19 11/24/24 History aspirin 81 mg tablet,delayed 81 mg PO QAM 01/06/20 11/24/24 History release albuterol sulfate 90 mcg/actuation 2 puff inhalation QID PRN Wheezing 04/09/24 11/24/24 History aerosol inhaler fluticasone furoate 200 1 inh inhalation DAILY PRN 04/09/24 11/24/24 History mcg-vilanterol 25 mcg/dose Shortness Of Breath Or Wheezing inhalation powder (Breo Ellipta) pantoprazole 20 mg tablet,delayed 20 mg PO QAM 04/09/24 11/24/24 History release tamsulosin 0.4 mg capsule 0.4 mg PO HS 08/21/24 11/24/24 History amlodipine 5 mg tablet 5 mg PO QAM 09/24/24 11/24/24 History citalopram 20 mg tablet 20 mg PO PM 09/24/24 11/24/24 History gabapentin 100 mg capsule 100 mg PO DAILY PRN NEUROPATHY 09/24/24 11/24/24 History sucroferric oxyhydroxide 500 mg 500 mg PO TIDM 09/24/24 11/24/24 History chewable tablet (Velphoro) tenapanor 30 mg tablet (Xphozah) 30 mg PO BID 09/24/24 11/24/24 History linagliptin 5 mg tablet (Tradjenta) 5 mg PO DAILY 11/24/24 11/24/24 History Past Med/Surg History Problem List Open wound of right lower leg Open wound of right heel SOB (shortness of breath) Pulmonary vascular congestion (Acute) Non-ST elevation ND (NSTEMI) (Acute) ESRD on dialysis (Acute) Acute dyspnea (Acute) Traumatic open wound of left lower leg (Acute) Gram-positive bacteremia Severe sepsis Fever (Acute) Hyperglycemia (Acute) Bacteremia due to Enterococcus Encephalopathy AMS (altered mental status) (Acute) Elevated troponin I level (Acute) Dizziness (Acute) Acute hyponatremia (Acute) Dizziness (Acute) Abnormal ECG (Acute) CKD (chronic kidney disease) (Acute) Tobacco abuse (Acute) Dialysis AV fistula malfunction Encounter for pre-operative examination Hypertension (Chronic) Encounter for pre-operative examination CKD (chronic kidney disease), stage IV Angina pectoris Gastritis Hypoxia CHF (congestive heart failure) SOB (shortness of breath) DVT prophylaxis Acute respiratory failure with hypoxia CHF (congestive heart failure) (Acute) Renal failure (Acute) Hypoxemia (Acute) SOB (shortness of breath) (Acute) Epigastric abdominal pain (Acute) SBO (small bowel obstruction) Abdominal pain (Acute) SBO (small bowel obstruction) (Acute) Chest pain Chest pain (Acute) Elevated troponin I level (Acute) Abnormal EKG (Acute) Elevated lipase (Acute) Severe calcific aortic valve stenosis Coffee ground emesis Ambulatory dysfunction (Acute) Generalized weakness (Acute) Weakness (Acute) Acute dehydration (Acute) Diarrhea (Acute) Clostridioides difficile diarrhea Peritoneal dialysis catheter in situ since removed Tobacco use ESRD (end stage renal disease) on dialysis (Acute) M/W/F > [employer] in [place] CKD (chronic kidney disease) stage 5, GFR less than 15 ml/min follows with Dr. Jay Hyperlipidemia BPH (benign prostatic hyperplasia) Diabetes mellitus, type 2 NIDDM Chronic anemia Medical History Diabetic foot ulcer Dialysis patient Tobacco abuse PAD (peripheral artery disease) CHF (congestive heart failure) AV fistula left wrist Osteoarthritis Anxiety and depression Hypertension Surgical History S/P TAVR (transcatheter aortic valve replacement) SBO (small bowel obstruction) with surgical intervention History of esophagogastroduodenoscopy (EGD) History of colonoscopy History of cholecystectomy History of tooth extraction History of cataract surgery RT/LEFT History of procedure for peripheral vascular disease LEFT LEG (STENT PLACED) Cardiac murmur no cardio Family History Brother Cancer Social History Smoking Status: Current every day smoker Tobacco Type: Cigarettes Age Started Using Tobacco: 16; packs per day: 0.5; Cigarettes Per Day: 10; Second Hand Exposure: No; Do You Dip or Chew Tobacco: No; Hx Alcohol Use: No Hx Substance Use: No Preferred Language: Frisian Communication Ability: Effective Visual Impairment: No Limitations Hearing Ability: Hard of Hearing Airconditioning Engineer Required: No Beliefs That Will Affect Care: None marital status: Single Current Living Situation: Alone Current Living Situation Comment: daughter helps with cooking and cleaning current occupational status: retired 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 Feels Safe at Home: Yes Diet: regular during the past year weight has: remained stable Assistive Devices: Walker Review of Systems Review of Systems: All systems reviewed & are unremarkable except as noted in HPI & below Physical Exam Physical Exam: Constitutional: chronically ill appearing, WD/WN, vitals as above, NAD, sitting up in bed, pleasant, conversing easily Head: Normocephalic, Atraumatic Eyes: PERRL, conjunctivae normal, anicteric sclerae ENMT: external ear and nose normal, oropharynx normal Neck: trachea midline, no thyromegaly normal visual inspection Respiratory: normal respiratory effort, lungs clear to auscultation, expiratory wheeze throughout, diminished at bases, no rales, rhonchi. Normal insp/exp effort, no accessory muscle use Cardiovascular: RRR, no murmur, no edema Vessels: no JVD or carotid bruit Chest: normal inspection of chest , LUE AVF Abdomen: normal bowel sounds, soft, nontender, no hepatosplenomegaly Musculoskeletal: no cyanosis or clubbing, AROM x 4 Skin: no rashes, warm and dry normal turgor Neurologic: no face palsy, no dysarthria CN's II-XI intact bilaterally and moves all extremities Psychiatric: A+Ox3, euthymic affect Results & Data Results & Data Vital Signs (Past 12 Hours) Vital Signs Temp Pulse Pulse Resp BP BP Pulse Ox 11/24/24 09:19 78 20 139/71 98 11/24/24 09:18 97 11/24/24 08:53 79 11/24/24 08:44 98 11/24/24 08:41 36.8 C 79 22 139/71 98 11/24/24 08:41 O2 Del Method O2 Flow Rate 11/24/24 09:19 Nasal Cannula 2 11/24/24 09:18 Room Air 11/24/24 08:53 11/24/24 08:44 Room Air 11/24/24 08:41 Room Air 11/24/24 08:41 Room Air Laboratory Results I have independently reviewed and interpreted patient's admitting labs including CBC, CMP, procal, mag and troponin. Diagnostic Findings Chest X-Ray 11/24/24 08:46 XR chest 1V portable CLINICAL HISTORY: Dyspnea. COMPARISON STUDY: Chest radiograph September 24, 2024. Chest CT September 25, 2024. FINDINGS: Prosthetic aortic valve is again noted. The heart is mildly enlarged. There is no pneumothorax. Small bilateral pleural effusions with associated bibasilar opacities are present. Interstitial thickening is noted. IMPRESSION: Cardiomegaly with moderate interstitial pulmonary edema, small bilateral pleural effusions and associated bibasilar opacities which favor atelectasis. ACT 112: Negative or not required by law. Electronically signed by: Osito Zambrano M.D. 11/24/2024 9:14 AM Medications Administered Medication List Discontinued Medications Albuterol (Albut/Ipratrop 3mg/0.5mg Neb 3 Ml Vial) 3 ml INH NOW STA Stop: 11/24/24 08:47 Last Admin: 11/24/24 08:51 Dose: 3 ml Documented By: JOAQUINA Methylprednisolone (Methylprednisolone 125 Mg/2 Ml Vial) 125 mg IV NOW STA Stop: 11/24/24 08:47 Last Admin: 11/24/24 08:50 Dose: 125 mg Documented By: CC ECG Additional Comments: I have independently reviewed and interpreted patient's admitting EKG which revealed: NSR, RBBB, LAFB, qtc 536ms COVID-19 Results Results COVID-19 Adm Lab Results: RBC 3.60 M/uL (4.70-6.10) L 11/24/24 WBC 9.58 K/ul (4.8-10.8) 11/24/24 Hgb 10.9 g/dl (14.0-18.0) L 11/24/24 Hct 34.5 % (42.0-52.0) L 11/24/24 Plt Count 158 K/uL (130-400) 11/24/24 Neutrophils (%) (Auto) 72.6 % 11/24/24 Lymphocytes (%) (Auto) 12.6 % 11/24/24 Monocytes # (Auto) 1.09 K/uL (0.11-0.59) H 11/24/24 Eosinophils # (Auto) 0.27 K/uL (0.00-0.50) 11/24/24 Immature Granulocyte % (Auto) 0.3 % 11/24/24 Neutrophils # (Auto) 6.95 K/uL (1.40-6.50) H 11/24/24 Lymphocytes # (Auto) 1.21 K/uL (1.20-3.40) 11/24/24 Monocytes # (Auto) 1.09 K/uL (0.11-0.59) H 11/24/24 Eosinophils # (Auto) 0.27 K/uL (0.00-0.50) 11/24/24 Basophils # (Auto) 0.03 K/uL (0.00-0.20) 11/24/24 Immature Granulocyte # (Auto) 0.03 K/uL (0.01-0.20) 5 Na 134 mmol/L (136-145) L 11/24/24 K 3.9 mmol/L (3.5-5.1) 11/24/24 Cl 92 mmol/L (98-107) L 11/24/24 CO2 29 mmol/L (21-32) 11/24/24 Anion Gap 13 (3-11) H 11/24/24 BUN 46 mg/dl (6-23) H 11/24/24 Creatinine 5.76 mg/dl (0.6-1.4) H* 11/24/24 BUN/Creatinine Ratio 8.0 (10-20) L 11/24/24 Glucose Level 179 mg/dl (70-99(Fasting)) H 11/24/24 Ca 10.7 mg/dl (8.6-10.3) H 11/24/24 Total Bilirubin 0.8 mg/dl (0.2-1.0) 11/24/24 AST/SGOT 16 U/L (13-39) 11/24/24 ALT/SGPT 11 U/L (7-52) 11/24/24 Alkaline Phosphatase 86 U/L (34-104) 11/24/24 Total Protein 7.3 gm/dl (6.0-8.3) 11/24/24 Albumin 4.2 gm/dl (3.4-5.0) 11/24/24 Globulin 3.1 gm/dl (2.5-4.0) 11/24/24 Albumin/Globulin Ratio 1.4 (0.9-2) 11/24/24 Procalcitonin 0.34 ng/ml (0-0.5) 11/24/24 Adenovirus (PCR) Not Detected (NotDetected) 11/24/24 B. parapertussis DNA (PCR) Not Detected (NotDetected) 11/06 B. pertussis DNA (PCR) Not Detected (NotDetected) 11/24/24 C. pneumoniae DNA (PCR) Not Detected (NotDetected) 5 Coronavirus Type OC43 (PCR) Not Detected (NotDetected) Coronavirus Type HKU1 (PCR) Not Detected (NotDetected) Coronavirus Type 229E (PCR) Not Detected (NotDetected) COVID-19 PCR Not Detected (NotDetected) 11/24/24 Coronavirus Type NL63 (PCR) Not Detected (NotDetected) Human Metapneumovirus (PCR) Not Detected (NotDetected) Influenza Virus Type A (PCR) Not Detected (NotDetected) Influenza Virus Type B (PCR) Not Detected (NotDetected) M. pneumoniae (PCR) Not Detected (NotDetected) 11/24/24 Parainfluenza Type 1 (PCR) Not Detected (NotDetected) 11/06 Parainfluenza Type 2 (PCR) Not Detected (NotDetected) 11/06 Parainfluenza Type 3 (PCR) Not Detected (NotDetected) 11/06 Parainfluenza Type 4 (PCR) Not Detected (NotDetected) 11/06 RSV (PCR) Not Detected (NotDetected) 11/24/24 Enterovirus/Rhinovirus (PCR) Not Detected (NotDetected) Chest X-Ray 11/24/24 Code Status & VTE Plan Code Status DNR/DNI VTE Prophylaxis Plan VTE Prophylaxis will be ordered: Yes Supervising Physician Co-Signing Physician Notes Pt seen and examined by me, care coordinated w/ B. CHANELL Calvillo, pls refer to her note above for further detail. 79 yo M w/ hx of ESRD on HD M/W/F, T2DM, diabetic peripheral neuropathy, diabetic retinopathy, PVD, secondary hyperparathyroidism, COPD, tobacco abuse, hypertension, aortic stenosis s/p TAVR in 2021, anemia of chronic disease, BPH who presents to ED secondary to shortness of breath x 1 month. He has a chronic cough with his COPD, but states it is minimal and minimally productive. He feels this is unchanged. He does admit to slight increased wheezing. He has been doing nebulizer treatments twice daily. He did not go to dialysis today and opted to come to ED instead. His last hemodialysis was on Sunday. Patient was last confined in September 2024 secondary to a COPD exacerbation. His hospital course was unremarkable. Currently in ED patient is on 2 L of supplemental oxygen. He also received 125 mg of IV Solu-Medrol and a DuoNeb treatment. He reports feeling better since arrival to the ED. He is alert, oriented, answers appropriately. Currently denies any shortness of breath or chest pain. Lungs diminished, w/ minimal rhonchi, heart sounds regular. abdomen soft, nontender. Pt is moving extremities. Will cont. with solumedrol, duonebs. add doxy. discussed with nephrology, will do HD this PM. Cont. to closely monitor, try to wean off O2. MD Singh (3) Hypertension Hypertension type: essential hypertension Qualified Code(s): I10 - Essential (primary) hypertension
[2024-11-24] MEDS ORDERED: GLUCOSE 40% GEL 15 GM TUBE PO PRN (11:43)
[2024-11-24] MEDS ORDERED: GLUCAGON FOR INJ 1 MG VIAL SQ PRN (11:43)
[2024-11-24] MEDS ORDERED: DEXTROSE 50% 50 ML SYRINGE IV PRN (11:43)
[2024-11-24] MEDS ORDERED: CARBOHYDRATES FOR HYPOGLYCEMIA PO PRN (11:43)
[2024-11-24] MEDS ORDERED: POLYETHYLENE (MIRALAX) 17 GM PACK PO PRN (11:43)
[2024-11-24] MEDS ORDERED: GLUCOSE 10 TAB/TUBE PO PRN (11:43)
[2024-11-24] MEDS ORDERED: ONDANSETRON INJ 2 MG/ML 2 ML VIAL IV PRN (11:43)
[2024-11-24] MEDS ORDERED: ACETAMINOPHEN 325 MG TAB PO PRN (11:43)
[2024-11-24] MEDS: INSULIN ASPART PER UNIT CHARGE SC SCH (12:00)
[2024-11-24] MEDS ORDERED: PROMETHAZINE 6.25 MG/50.25 ML BAG IV PRN (12:52)
[2024-11-24] MEDS: HEPARIN SOD 5,000 UNIT/0.5 ML VIAL SQ SCH (14:00)
[2024-11-24] MEDS: ALBUT/IPRATROP 3MG/0.5MG NEB 3 ML VIAL NEB SCH (15:09)
--- NOTE | 2024-11-24 15:12 | Electrocardiogram Report ---
Test Reason : Blood Pressure : */* mmHG Vent. Rate : 79 BPM Atrial Rate : 79 BPM P-R Int : 180 ms QRS Dur : 154 ms QT Int : 468 ms P-R-T Axes : 59 -59 86 degrees QTcB Int : 536 ms Normal sinus rhythm Right bundle branch block Left anterior fascicular block Bifascicular block Left ventricular hypertrophy with repolarization abnormality Abnormal ECG When compared with ECG of 26-Sep-2024 05:16, (RBBB and left anterior fascicular block) is now Present Confirmed by Jono Parson ([id number]) on 11/24/2024 3:12:20 PM Referred By: Confirmed By: Jono Parson
[2024-11-24] MEDS: EPOETIN ALFA 10,000 UNITS/ML VIAL SQ STA (15:26)
--- NOTE | 2024-11-24 16:20 | Nephrology Consultation ---
Date of Consultation November 24, 2024 Assessment & Plan (1) End-stage renal disease on hemodialysis: patient has end-stage renal disease on hemodialysis Sunday and today is his regular dialysis day. At this time no major evidence of electrolyte problems but he does have evidence of fluid overload with pulmonary edema and shortness of breath. Will do dialysis for 3.5-4 hour depending on how easy it is to remove the fluid. we will aim for 3-3.5 kilos fluid removal. Hemoglobin is 10+ which is at goal. We will be using heparin as per his outpatient protocol. (2) Acute exacerbation of chronic obstructive pulmonary disease: it appears he does have combination of COPD flare-up as well as some degree of volume overload as the cause of his shortness of breath. He is getting appropriate treatment for COPD flare up (3) Volume overload: his pulmonary edema on the chest x-ray and we will be taking 3-3.5 kilos fluid off with dialysis today and hopefully they will make him feel better Plan care coordinated and discuss with primary service as well as dialysis nurse. Total time spent is 48 minutes History of Present Illness Reason for Consultation: ESRD on dialysis now admitted with COPD flare up Attending Physician: Hans Winters MD History of Present Illness 79-year-old male with ESRD on chronic hemodialysis Sunday at the [facility] in [place] under the care of Dr. Helen Jay. patient was supposed to go for dialysis but he became very short of breath and instead came to the emergency department. He is quite compliant with dialysis in his last dialysis was Sunday as per his schedule. He has an AV fistula which works good. He does not report having any issues with dialysis recently. Respiratory panel was already done and was negative. Chest x-ray shows some pulmonary edema. patient does have COPD and he is currently requiring 2 L oxygen by nasal cannula. review of system is positive for shortness of breath. Otherwise denies chest pain palpitation orthopnea PND lower extremity edema nausea vomiting fever chills sick contacts lightheadedness or dizziness. Total 12 systems reviewed and is otherwise negative physical examination elderly white male who appears to be in moderate respiratory distress. Oxygen saturation 98% on 2 L nasal cannula blood pressure is 1 20 x 63 pulse rate 66 temperature 36.7. mucous membrane is moist neck is supple no JVD. Chest bilateral decreased breath sound prolonged expiration occasional basal crackles bilaterally CVS S1-S2 regular S1 and S2 heard soft systolic murmur heard abdomen is soft nontender extremities without edema Allergies Allergy/AdvReac Type Severity Reaction Status Date / Time No Known Allergies Allergy Verified 10/23/24 13:05 Home Medications Medication Instructions Recorded Confirmed Type atorvastatin 40 mg tablet 40 mg PO QAM 07/31/19 11/24/24 History cholecalciferol (vitamin D3) 25 1,000 unit PO PM 07/31/19 11/24/24 History mcg (1,000 unit) tablet (Vitamin D3) finasteride 5 mg tablet 5 mg PO HS 07/31/19 11/24/24 History aspirin 81 mg tablet,delayed 81 mg PO QAM 01/06/20 11/24/24 History release albuterol sulfate 90 mcg/actuation 2 puff inhalation QID PRN Wheezing 04/09/24 11/24/24 History aerosol inhaler fluticasone furoate 200 1 inh inhalation DAILY PRN 04/09/24 11/24/24 History mcg-vilanterol 25 mcg/dose Shortness Of Breath Or Wheezing inhalation powder (Breo Ellipta) pantoprazole 20 mg tablet,delayed 20 mg PO QAM 04/09/24 11/24/24 History release tamsulosin 0.4 mg capsule 0.4 mg PO HS 08/21/24 11/24/24 History amlodipine 5 mg tablet 5 mg PO QAM 09/24/24 11/24/24 History citalopram 20 mg tablet 20 mg PO PM 09/24/24 11/24/24 History gabapentin 100 mg capsule 100 mg PO DAILY PRN NEUROPATHY 09/24/24 11/24/24 Histo ry sucroferric oxyhydroxide 500 mg 500 mg PO TIDM 09/24/24 11/24/24 History chewable tablet (Velphoro) tenapanor 30 mg tablet (Xphozah) 30 mg PO BID 09/24/24 11/24/24 History linagliptin 5 mg tablet (Tradjenta) 5 mg PO DAILY 11/24/24 11/24/24 History Patient History Medical History Diabetic foot ulcer Dialysis patient Tobacco abuse PAD (peripheral artery disease) CHF (congestive heart failure) AV fistula left wrist Osteoarthritis Anxiety and depression Hypertension Surgical History S/P TAVR (transcatheter aortic valve replacement) SBO (small bowel obstruction) with surgical intervention History of esophagogastroduodenoscopy (EGD) History of colonoscopy History of cholecystectomy History of tooth extraction History of cataract surgery RT/LEFT History of procedure for peripheral vascular disease LEFT LEG (STENT PLACED) Cardiac murmur no cardio Family History Brother Cancer Social History Smoking Status: Current every day smoker Tobacco Type: Cigarettes Age Started Using Tobacco: 16; packs per day: 0.5; Cigarettes Per Day: 10; Second Hand Exposure: No; Do You Dip or Chew Tobacco: No; Hx Alcohol Use: No Hx Substance Use: No Preferred Language: Danish Communication Ability: Effective Visual Impairment: No Limitations Hearing Ability: Hard of Hearing Lining Inserter Required: No Beliefs That Will Affect Care: None marital status: Single Current Living Situation: Alone Current Living Situation Comment: daughter helps with cooking and cleaning current occupational status: 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 Feels Safe at Home: Yes Diet: regular during the past year weight has: remained stable Assistive Devices: Walker Results & Data Vital Signs (Past 12 Hours) Vital Signs Temp Pulse Pulse Pulse Resp BP BP 11/24/24 15:00 66 120/63 11/24/24 14:30 67 118/59 L 11/24/24 14:00 68 131/59 L 11/24/24 13:30 70 117/54 L 11/24/24 13:00 74 124/61 11/24/24 12:30 77 122/61 11/24/24 12:16 82 120/64 11/24/24 12:12 36.7 C 80 11/24/24 09:19 78 20 139/71 11/24/24 09:18 11/24/24 08:53 79 11/24/24 08:44 11/24/24 08:41 36.8 C 79 22 139/71 11/24/24 08:41 Pulse Ox O2 Del Method O2 Flow Rate 11/24/24 15:00 11/24/24 14:30 11/24/24 14:00 11/24/24 13:30 11/24/24 13:00 11/24/24 12:30 11/24/24 12:16 11/24/24 12:12 11/24/24 09:19 98 Nasal Cannula 2 11/24/24 09:18 97 Room Air 11/24/24 08:53 11/24/24 08:44 98 Room Air 11/24/24 08:41 98 Room Air 11/24/24 08:41 Room Air Laboratory Results respiratory panel negative for viral infections Diagnostic Findings chest x-ray suggestive of pulmonary edema (3) Volume overload Hypervolemia type: other Qualified Code(s): E87.79 - Other fluid overload
[2024-11-24] MEDS: DOXYCYCLINE HYCLATE 100 MG CAP PO SCH (21:29)
[2024-11-24] MEDS: CHOLECALCIFEROL 25 MCG (1000 UNITS) TAB PO SCH (21:29)
[2024-11-24] MEDS: FINASTERIDE 5 MG TAB PO SCH (21:29)
[2024-11-24] MEDS: TAMSULOSIN HCL 0.4 MG CAP PO SCH (21:29)
[2024-11-24] MEDS: CITALOPRAM 20 MG TAB PO SCH (21:29)
[2024-11-24] MEDS: DOCUSATE SODIUM/SENNA 50/8.6MG TAB PO SCH (21:29)
[2024-11-24] MEDS: guaiFENesin 600 MG TABCR PO SCH (21:30)
[2024-11-25] MEDS: LORazepam 0.5 MG TAB PO STA (01:34)
[2024-11-25 07:19] LABS: Basophils # (auto) 0.04 K/uL (0.00-0.20); Basophils % (auto) 0.4 %; Eosinophils # (auto) 0.01 K/uL (0.00-0.50); Eosinophils % (auto) 0.1 %; Hematocrit (blood only) 35.1 % (42.0-52.0); Immature Granulocytes # (auto) 0.04 K/uL (0.01-0.20); Immature Granulocytes % (auto) 0.4 %; Lymphocytes # (auto) 1.28 K/uL (1.20-3.40); Mean Corpuscular Hemoglobin 29.8 pg (25.0-34.0); Mean Corpuscular Hgb Conc 31.3 g/dL (32.0-36.0); Mean Corpuscular Volume 95.1 fL (80.0-100.0); Mean Platelet Volume 11.9 fL (9.4-12.4); Monocytes # (auto) 1.15 K/uL (0.11-0.59); Monocytes % (auto) 12.6 %; Neutrophils # (auto) 6.63 K/uL (1.40-6.50); Neutrophils % (auto) 72.5 %; Platelet Count 162 K/uL (130-400); RDW Coefficient of Variation 16.1 % (11.5-14.5); RDW Standard Deviation 56.1 fL (36.4-46.3); Red Blood Count 3.69 M/uL (4.70-6.10); White Blood Count 9.15 K/ul (4.8-10.8)
[2024-11-25 08:11] LABS: BUN Creatinine Ratio 8.7 (10-20); Calcium 10.2 mg/dl (8.6-10.3); Creatinine Clr Calc Pharmacy 14.4 ml/min; Magnesium 1.9 mg/dl (1.7-2.4); Phosphorus 3.8 mg/dl (2.5-4.9); Potassium 4.1 mmol/L (3.5-5.1)
[2024-11-25] MEDS: FLUTICASONE/VILANTEROL 200/25MCG 14 PUFFS/INHALER INH SCH (08:25)
[2024-11-25] MEDS: methylPREDNISolone 40 MG in SYRINGE 0 ML IV SCH (08:25)
[2024-11-25] MEDS: ASPIRIN 81 MG ECTAB PO SCH (08:26)
[2024-11-25] MEDS: amLODIPine BESYLATE 5 MG TAB PO SCH (08:26)
[2024-11-25] MEDS: PANTOprazole 40 MG TAB PO SCH (08:26)
[2024-11-25] MEDS: ATORVASTATIN 40 MG TAB PO SCH (08:26)
[2024-11-25] MEDS ORDERED: methylPREDNISolone 125 MG/2 ML VIAL IV SCH (09:00)
--- NOTE | 2024-11-25 09:50 | Nephrology Progress Note ---
Date of Service November 25, 2024 Assessment & Plan Admission and Anticipated Discharge Date Admission Date: November 24, 2024 Subjective Assessment & Plan (1) End-stage renal disease on hemodialysis: patient has end-stage renal disease on hemodialysis Sunday and will do him again tomorrow. . At this time no major evidence of electrolyte problems but he does have evidence of fluid overload with pulmonary edema and shortness of breath. Will do dialysis for 3.5-4 hour depending on how easy it is to remove the fluid. we will aim for 3-3.5 kilos fluid removal. Hemoglobin is 10+ which is at goal. We will be using heparin as per his outpatient protocol. (2) Acute exacerbation of chronic obstructive pulmonary disease: it appears he does have combination of COPD flare-up as well as some degree of volume overload as the cause of his shortness of breath. He is getting appropriate treatment for COPD flare up (3) Volume overload: his pulmonary edema on the chest x-ray and we will be taking 3-3.5 kilos fluid off with dialysis today and hopefully they will make him feel better S--had dialysis and feels better today but still not back to baseline. tolerated Dialysis well--3.5 kilo removed. physical examination elderly white male who appears to be in moderate respiratory distress. Oxygen saturation 98% on 2 L nasal cannula blood pressure is 1 20 x 63 pulse rate 66 temperature 36.7. mucous membrane is moist neck is supple no JVD. Chest bilateral decreased breath sound prolonged expiration occasional basal crackles bilaterally CVS S1-S2 regular S1 and S2 heard soft systolic murmur heard abdomen is soft nontender extremities without edema Results & Data Vital Signs (Past 12 Hours) Vital Signs Temp Pulse Pulse Pulse Resp BP Pulse Ox 11/25/24 07:41 80 26 H 94 11/25/24 07:06 36.4 C L 77 18 142/74 H 97 11/25/24 03:28 36.8 C 82 20 139/68 92 11/24/24 23:59 36.6 C 82 20 126/69 95 11/24/24 23:54 81 11/24/24 22:02 O2 Del Method 11/25/24 07:41 Room Air 11/25/24 07:06 Room Air 11/25/24 03:28 Room Air 11/24/24 23:59 Room Air 11/24/24 23:54 11/24/24 22:02 Room Air
[2024-11-25 12:14] LABS: Adenovirus PCR Not Detected (NotDetected); Bordetella parapertussis PCR Not Detected (NotDetected); Bordetella pertussis PCR Not Detected (NotDetected); Chlamydia pneumoniae PCR Not Detected (NotDetected); Coronavirus 229E PCR Not Detected (NotDetected); Coronavirus CoV-2 (COVID19)PCR Not Detected (NotDetected); Coronavirus HKU1 PCR Not Detected (NotDetected); Coronavirus NL63 PCR Not Detected (NotDetected); Coronavirus OC43PCR Not Detected (NotDetected); Human Metapneumovirus PCR Not Detected (NotDetected); Influenza A PCR Not Detected (NotDetected); Influenza B PCR Not Detected (NotDetected); Mycoplasma pneumoniae PCR Not Detected (NotDetected); Parainfluenza Virus 1 PCR Not Detected (NotDetected); Parainfluenza Virus 2 PCR Not Detected (NotDetected); Parainfluenza Virus 3 PCR Not Detected (NotDetected); Parainfluenza Virus 4 PCR DETECTED (NotDetected); Respiratory Syncytial VirusPCR Not Detected (NotDetected); Rhinovirus/Enterovirus PCR Not Detected (NotDetected)
--- NOTE | 2024-11-25 13:21 | Hospitalist Progress Note ---
Date of Service November 25, 2024 Assessment & Plan (1) Acute respiratory failure with hypoxia: Plan: -suspect hypoxia/SOB multifactorial in setting of COPD exac and volume overload in need of HD -received IV solumedrol 125mg and duoneb in ED -biofire ordered this morning revealed parainfluenza 4 infection -does have cough, could be component of overlying CAP given viral infection and persistent oxygen needs Plan: -switch to prednisone 40 mg daily, scheduled duonebs, muccinex, incentive spirometry -augmentin/Doxycycline 100mg bid for 5 days given concern for overlying CAP given cough, clinically looks worse than chart -respiratory culture ordered -continue IS, can add flutter valve if hypoxia worsens -continue dialysis (2) Parainfluenza infection: Plan: -see above (3) CAP (community acquired pneumonia): Plan: -see above (4) ESRD on dialysis: Plan: -patient has evidence of fluid overload on chest xray -MWF schedule Plan: -nephrology consulted, appreciate recs -continue dialysis (5) Myocardial injury: Plan: -appears to have chronic elevated troponins -downtrended durign this visit -noted to have 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 Plan: -will need f/u with cardiology outpatient -caution with diuresis given relative preload dependence (6) Hypertension: Plan: -continue amlodopine (7) Diabetes mellitus, type 2: Plan: -insulin protocol Plan Feeding/fluids: renal Analgesia: tylenol Sedation: na Thromboprophylaxis: heparin Head up position: na Ulcer prophylaxis: protonix Glycemic control: insulin protocol Spontaneous breathing trial: on NC Bowel care: continue miralax Indwelling catheter removal: na Deescalation of antibiotics: doxy/augmentin ( day 11/09) I spent a total of 55 minutes coordinating, documenting, and providing care for this patient excluding time spent in the performance of separately billed services. Admission and Anticipated Discharge Date Admission Date: November 24, 2024 Subjective 79-year-old male with past medical history of ESRD, heart failure, BPH, tobacco use who presents for shortness of breath. In ED chest x-ray showed pulmonary congestion, admitted to medicine for further workup. Nephrology was consulted for dialysis. Patient seen and examined at bedside. Patient doing little better this morning. He feels less short of breath but does not feel back to his baseline. No chest pain or other symptoms at this time. Review of Systems Review of Systems: CONSTITUTIONAL: fatigue, weakness EYES: Patient denies any visual symptoms. EARS, NOSE, AND THROAT: No difficulties with hearing. No symptoms of rhinitis or sore throat. CARDIOVASCULAR: Patient denies chest pains, palpitations, orthopnea and paroxysmal nocturnal dyspnea. RESPIRATORY: cough, shortness of breath GI: No nausea, vomiting, diarrhea, constipation, abdominal pain, hematochezia or melena. : No urinary hesitancy or dribbling. No nocturia or urinary frequency. No abnormal urethral discharge. MUSCULOSKELETAL: No myalgias or arthralgias. NEUROLOGIC: No chronic headaches, no seizures. Patient denies numbness, tingling or weakness. PSYCHIATRIC: Patient denies problems with mood disturbance. No problems with anxiety. ENDOCRINE: No excessive urination or excessive thirst. DERMATOLOGIC: Patient denies any rashes or skin changes. Physical Exam Physical Exam: Gen: A&O 3 NAD HEENT: NCAT, EOMI, not icteric. External ears normal. No rhinorrhea. Moist mucous membranes. Neck: Supple, full range of motion, no observable masses, No meningeal sign. Lungs: crackles noted bilaterally CV: RRR, no edema. Abdomen: Soft, nondistended, No rebound tenderness. MSK: No joint swelling, no redness. Skin: No rashes, petechiae, lesions. Normal color per patient. Neuro: Normal Gait, Grossly intact. Psych: Appropriate for situation. Results & Data Results & Data Vital Signs (Past 12 Hours) Vital Signs Temp Pulse Pulse Pulse Pulse Resp BP 11/25/24 11:32 80 20 11/25/24 11:23 36.7 C 78 18 127/62 11/25/24 11:17 80 11/25/24 11:15 36.7 C 82 18 127/67 11/25/24 07:45 11/25/24 07:41 80 26 H 11/25/24 07:06 36.4 C L 77 18 142/74 H 11/25/24 03:28 36.8 C 82 20 139/68 Pulse Ox O2 Del Method O2 Flow Rate 11/25/24 11:32 98 Nasal Cannula 2 11/25/24 11:23 95 Nasal Cannula 1 11/25/24 11:17 11/25/24 11:15 96 Nasal Cannula 1 11/25/24 07:45 Room Air 11/25/24 07:41 94 Room Air 11/25/24 07:06 97 Room Air 11/25/24 03:28 92 Room Air Laboratory Results Laboratory Results WBC 9.15 K/ul (4.8-10.8) 11/25/24 05:51 RBC 3.69 M/uL (4.70-6.10) L 11/25/24 05:51 Hgb 11.0 g/dl (14.0-18.0) L 11/25/24 05:51 Hct 35.1 % (42.0-52.0) L 11/25/24 05:51 MCV 95.1 fL (80.0-100.0) 11/25/24 05:51 MCH 29.8 pg (25.0-34.0) 11/25/24 05:51 MCHC 31.3 g/dL (32.0-36.0) L 11/25/24 05:51 RDW Std Deviation 56.1 fL (36.4-46.3) H 11/25/24 05:51 RDW Coeff of Danny 16.1 % (11.5-14.5) H 11/25/24 05:51 Plt Count 162 K/uL (130-400) 11/25/24 05:51 MPV 11.9 fL (9.4-12.4) 11/25/24 05:51 Immature Gran % (Auto) 0.4 % 11/25/24 05:51 Neut % (Auto) 72.5 % 11/25/24 05:51 Lymph % (Auto) 14.0 % 11/25/24 05:51 Overton % (Auto) 12.6 % 11/25/24 05:51 Eos % (Auto) 0.1 % 11/25/24 05:51 Baso % (Auto) 0.4 % 11/25/24 05:51 Neut # (Auto) 6.63 K/uL (1.40-6.50) H 11/25/24 05:51 Lymph # (Auto) 1.28 K/uL (1.20-3.40) 11/25/24 05:51 Overton # (Auto) 1.15 K/uL (0.11-0.59) H 11/25/24 05:51 Eos # (Auto) 0.01 K/uL (0.00-0.50) 11/25/24 05:51 Baso # (Auto) 0.04 K/uL (0.00-0.20) 11/25/24 05:51 Immature Gran # (Auto) 0.04 K/uL (0.01-0.20) 11/25/24 05:51 Sodium 134 mmol/L (136-145) L 11/25/24 05:51 Potassium 4.1 mmol/L (3.5-5.1) 11/25/24 05:51 Chloride 94 mmol/L (98-107) L 11/25/24 05:51 Carbon Dioxide 27 mmol/L (21-32) 11/25/24 05:51 Anion Gap 13 (3-11) H 11/25/24 05:51 BUN 35 mg/dl (6-23) H 11/25/24 05:51 Creatinine 4.02 mg/dl (0.6-1.4) H D 11/25/24 05:51 Est Cr Clr Drug Dosing 14.4 ml/min 11/25/24 05:51 eGFR 14.24 11/25/24 05:51 BUN/Creatinine Ratio 8.7 (10-20) L 11/25/24 05:51 Glucose 157 mg/dl (70-99(Fasting)) H 11/25/24 05:51 POC Glucose 294 mg/dl (70-99) H 11/25/24 12:23 Calcium 10.2 mg/dl (8.6-10.3) 11/25/24 05:51 Phosphorus 3.8 mg/dl (2.5-4.9) 11/25/24 05:51 Magnesium 1.9 mg/dl (1.7-2.4) 11/25/24 05:51 Total Bilirubin 0.8 mg/dl (0.2-1.0) 11/24/24 08:51 AST 16 U/L (13-39) 11/24/24 08:51 ALT 11 U/L (7-52) 11/24/24 08:51 Alkaline Phosphatase 86 U/L (34-104) 11/24/24 08:51 Troponin I High Sens 90.9 pg/ml (0-20) H* 11/24/24 22:36 Total Protein 7.3 gm/dl (6.0-8.3) 11/24/24 08:51 Albumin 4.2 gm/dl (3.4-5.0) 11/24/24 08:51 Globulin 3.1 gm/dl (2.5-4.0) 11/24/24 08:51 Albumin/Globulin Ratio 1.4 (0.9-2) 11/24/24 08:51 Procalcitonin 0.34 ng/ml (0-0.5) 11/24/24 08:51 Nasal Screen MRSA (PCR) Negative (Negative) 11/24/24 17:17 Adenovirus (PCR) Not Detected (NotDetected) 11/25/24 10:40 B. pertussis DNA (PCR) Not Detected (NotDetected) 11/25/24 10:40 B.parapertussis DNA PCR Not Detected (NotDetected) 11/25/24 10:40 C. pneumoniae DNA (PCR) Not Detected (NotDetected) 11/25/24 10:40 Coronavirus OC43 (PCR) Not Detected (NotDetected) 11/25/24 10:40 Coronavirus HKU1 (PCR) Not Detected (NotDetected) 11/25/24 10:40 Coronavirus 229E (PCR) Not Detected (NotDetected) 11/25/24 10:40 SARS-CoV-2 (PCR) Not Detected (NotDetected) 11/25/24 10:40 Coronavirus NL63 (PCR) Not Detected (NotDetected) 11/25/24 10:40 Human Metapneumovir PCR Not Detected (NotDetected) 11/25/24 10:40 Influenza Type A (PCR) Not Detected (NotDetected) 11/25/24 10:40 Influenza Type B (PCR) Not Detected (NotDetected) 11/25/24 10:40 M. pneumoniae (PCR) Not Detected (NotDetected) 11/25/24 10:40 Parainfluenza 1 (PCR) Not Detected (NotDetected) 11/25/24 10:40 Parainfluenza 2 (PCR) Not Detected (NotDetected) 11/25/24 10:40 Parainfluenza 3 (PCR) Not Detected (NotDetected) 11/25/24 10:40 Parainfluenza 4 (PCR) DETECTED (NotDetected) A 11/25/24 10:40 RSV (PCR) Not Detected (NotDetected) 11/25/24 10:40 Entero/Rhino (PCR) Not Detected (NotDetected) 11/25/24 10:40 Impressions Chest X-Ray 11/24/24 08:46 XR chest 1V portable CLINICAL HISTORY: Dyspnea. COMPARISON STUDY: Chest radiograph September 24, 2024. Chest CT September 25, 2024. FINDINGS: Prosthetic aortic valve is again noted. The heart is mildly enlarged. There is no pneumothorax. Small bilateral pleural effusions with associated bibasilar opacities are present. Interstitial thickening is noted. IMPRESSION: Cardiomegaly with moderate interstitial pulmonary edema, small bilateral pleural effusions and associated bibasilar opacities which favor atelectasis. ACT 112: Negative or not required by law. Electronically signed by: Osito Zambrano M.D. 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
--- NOTE | 2024-11-25 14:01 | Electrocardiogram Report ---
Test Reason : Blood Pressure : */* mmHG Vent. Rate : 86 BPM Atrial Rate : 86 BPM P-R Int : 186 ms QRS Dur : 162 ms QT Int : 470 ms P-R-T Axes : 64 -64 93 degrees QTcB Int : 562 ms Normal sinus rhythm Right bundle branch block Left anterior fascicular block Bifascicular block Left ventricular hypertrophy with repolarization abnormality Abnormal ECG When compared with ECG of 24-Nov-2024 08:39, T wave inversion less evident in Lateral leads Confirmed by Jono Parson ([id number]) on 11/25/2024 2:00:48 PM Referred By: REFERRED SELF Confirmed By: Jono Parson
[2024-11-25 16:39] LABS: Appearance Urine Clear (Clear); Bacteria Urine Automated None Seen (None Seen); Bilirubin Urine Negative (Negative); Blood Urine 1+ (Negative); Cast Urine Automated 0-2 /lpf (0-2); Color Urine Yellow; Glucose Urine UA 2+ (Negative); Ketones Urine Negative (Negative); Leukocyte Esterase Urine Negative (Negative); Nitrite Urine Negative (Negative); Protein Urine 2+ (Negative); Specific Gravity Urine 1.013 (1.000-1.030); Urobilinogen Urine Negative (Negative)
[2024-11-25] MEDS: AMOXICILLIN/CLAVULANATE 500 MG TAB PO SCH (18:04)
[2024-11-26] MEDS: ALBUT/IPRATROP 3MG/0.5MG NEB 3 ML VIAL NEB PRN (01:28)
[2024-11-26 07:36] LABS: Hematocrit (blood only) 36.8 % (42.0-52.0); Hemoglobin 11.5 g/dl (14.0-18.0); Mean Corpuscular Hemoglobin 29.8 pg (25.0-34.0); Mean Corpuscular Hgb Conc 31.3 g/dL (32.0-36.0); Mean Corpuscular Volume 95.3 fL (80.0-100.0); Mean Platelet Volume 12.3 fL (9.4-12.4); Platelet Count 168 K/uL (130-400); RDW Coefficient of Variation 16.1 % (11.5-14.5); RDW Standard Deviation 57.1 fL (36.4-46.3); Red Blood Count 3.86 M/uL (4.70-6.10); White Blood Count 12.01 K/ul (4.8-10.8)
[2024-11-26] MEDS: predniSONE 20 MG TAB PO SCH (07:56)
[2024-11-26 07:59] LABS: BUN Creatinine Ratio 11.3 (10-20); Calcium 10.5 mg/dl (8.6-10.3); Creatinine Clr Calc Pharmacy 9.8 ml/min; Magnesium 1.9 mg/dl (1.7-2.4); Potassium 4.5 mmol/L (3.5-5.1)
--- NOTE | 2024-11-26 10:10 | XRay Report ---
XR chest 1V portable CLINICAL HISTORY: inc O2 needs, f/u cxr TECHNIQUE: Single frontal radiograph of the chest was obtained. Comparison: Comparison is made to chest radiograph 11/24/2024 FINDINGS: No lines and tubes are seen. Cardiomegaly is noted. The aortic arch is calcified. There is prominence and cephalization of the vasculature with Veronica B lines seen. Small bibasilar airspace opacities re main. No evidence of pleural effusion or pneumothorax. IMPRESSION: 1. Cardiomegaly and moderate pulmonary edema. Grossly similar to prior exam. 2. Stable bilateral lower lung predominant airspace opacities. ACT 112: Negative or not required by law. Electronically signed by: Brett Garcia M.D. 11/26/2024 10:08 AM
--- NOTE | 2024-11-26 10:57 | Dialysis Progress Note ---
Date of Service November 26, 2024 Assessment & Plan Admission and Anticipated Discharge Date Admission Date: November 24, 2024 Subjective Assessment & Plan (1) End-stage renal disease on hemodialysis: patient has end-stage renal disease on hemodialysis Sunday and will do him again tomorrow. . At this time no major evidence of electrolyte problems but he does have evidence of fluid overload with pulmonary edema and shortness of breath. Will do dialysis for 3.5 hour. we were aiming for 3-3.5 kilos fluid removal but BP dropped right away so will lower UF goal to 1.5. Hemoglobin is 10+ which is at goal. We will be using heparin as per his outpatient protocol. (2) Acute exacerbation of chronic obstructive pulmonary disease: it appears he does have combination of COPD flare-up as well as some degree of volume overload as the cause of his shortness of breath. He is getting appropriate treatment for COPD flare up (3) Volume overload: his pulmonary edema on the chest x-ray and we will be taking 1.5 kilos fluid off with dialysis today as his BP dropped right after start S--Seen during Dialysis. BP dropped so had to cut down the UF goal. he also seems less interactive and somewhat confused. Breathing is better. Now has parainfluenzae. physical examination elderly white male who appears to be in moderate respiratory distress. Oxygen saturation 98% on 2 L nasal cannula blood pressure is 1 20 x 63 pulse rate 66 temperature 36.7. mucous membrane is moist neck is supple no JVD. Chest bilateral decreased breath sound prolonged expiration occasional basal crackles bilaterally CVS S1-S2 regular S1 and S2 heard soft systolic murmur heard abdomen is soft nontender extremities without edema Results & Data Vital Signs (Past 12 Hours) Vital Signs Temp Pulse Pulse Resp BP Pulse Ox O2 Del Method 11/26/24 09:05 Nasal Cannula 11/26/24 07:46 36.9 C 101 H 20 154/73 H 95 Nasal Cannula 11/26/24 07:44 77 15 93 Nasal Cannula 11/26/24 07:36 98 H 11/26/24 01:47 36.8 C 93 H 18 137/72 100 Nebulizer 11/26/24 01:28 84 18 96 Room Air O2 Flow Rate 11/26/24 09:05 3 11/26/24 07:46 2 11/26/24 07:44 2 11/26/24 07:36 01/22/25 01:47 11/26/24 01:28
--- NOTE | 2024-11-26 17:52 | Hospitalist Progress Note ---
Date of Service November 26, 2024 Assessment & Plan (1) Parainfluenza infection: Plan 79-year-old male with PMH of ESRD on hemodialysis [MWF], T2DM, diabetic peripheral neuropathy, diabetic retinopathy, PVD, secondary hyperparathyroidism, COPD, tobacco abuse, HTN, aortic stenosis status post TAVR in 2021, anemia of chronic disease, BPH presented to the ED secondary to shortness of breath x 1 month. He is being managed for the following: Acute respiratory failure with hypoxia: Acute Pulmonary Edema-in setting of ESRD and possible CAP Parainfluenza 4 viral URTI -suspect hypoxia/SOB multifactorial in setting of COPD exac, volume overload iso ESRD, possible CAP iso viral urti. -resp biofire +ve for parainfluenza 4 -Taper prednisone 40 mg daily in next 2-3 days, c/w scheduled duonebs, muccinex, incentive spirometry -augmentin/Doxycycline 100mg bid for 7 days given concern for overlying CAP given cough. Continue with doxycycline 11/24. -respiratory culture ordered, follow. -continue IS and flutter valve. c/w hypertonic saline nebs and mucomyst nebs -continue dialysis ESRD on dialysis: Plan: -patient has evidence of fluid overload on chest xray -MWF schedule Plan: -nephrology consulted, appreciate recs -continue dialysis Myocardial injury: -appears to have chronic elevated troponins -downtrended durign this visit, ECHO w/ EF of 50-55%, LV wall motion nl. - pt denies chest pain. Hypertension: -continue amlodopine Diabetes mellitus, type 2: -insulin protocol DVT prophylaxis: Heparin subcu DNR/DNI PT/OT, CM to assist with DC planning. Admission and Anticipated Discharge Date Admission Date: November 24, 2024 Subjective Patient was seen and examined at bedside. Patient was getting hemodialysis, on 4 L oxygen via nasal cannula, NAD, appears lethargic. Patient denied any pain, was oriented to self and place. Physical Exam Physical Exam: Gen: A&O self and place, appears tired/lethargic today, NAD HEENT: NCAT, EOMI, not icteric. External ears normal. No rhinorrhea. Moist mucous membranes. Neck: Supple, full range of motion, no observable masses, No meningeal sign. Lungs: crackles noted bilaterally CV: RRR, no edema. Abdomen: Soft, nondistended, No rebound tenderness. MSK: No joint swelling, no redness. Skin: No rashes, petechiae, lesions. Normal color per patient. Neuro: Normal Gait, Grossly intact. Psych: Appropriate for situation. Results & Data Results & Data Vital Signs (Past 12 Hours) Vital Signs Temp Pulse Pulse Pulse Resp BP BP 11/26/24 15:48 79 11/26/24 15:28 82 14 11/26/24 15:16 36.7 C 84 16 125/68 11/26/24 13:45 36.7 C 74 131/76 11/26/24 13:30 76 118/62 11/26/24 13:00 79 123/71 11/26/24 12:30 78 126/65 11/26/24 12:00 83 116/70 11/26/24 11:30 84 116/66 11/26/24 11:00 76 113/65 11/26/24 10:30 80 91/37 L 11/26/24 10:14 92 H 117/67 11/26/24 10:01 36.5 C 95 H 11/26/24 09:05 11/26/24 07:46 36.9 C 101 H 20 154/73 H 11/26/24 07:44 77 15 11/26/24 07:36 98 H Pulse Ox O2 Del Method O2 Flow Rate 11/26/24 15:48 11/26/24 15:28 99 Nasal Cannula 3 11/26/24 15:16 100 Room Air 11/26/24 13:45 11/26/24 13:30 11/26/24 13:00 11/26/24 12:30 11/26/24 12:00 11/26/24 11:30 11/26/24 11:00 11/26/24 10:30 11/26/24 10:14 11/26/24 10:01 11/26/24 09:05 Nasal Cannula 3 11/26/24 07:46 95 Nasal Cannula 2 11/26/24 07:44 93 Nasal Cannula 2 11/26/24 07:36
[2024-11-26] MEDS: SODIUM CHLOR 7% 4 ML NEB NEB SCH (19:47)
[2024-11-26] MEDS: ACETYLCYSTEINE 20% INHAL SOLN 4ML ***DISPENSED BY RESP. INH SCH (19:47)
[2024-11-27 07:41] LABS: Hematocrit (blood only) 33.3 % (42.0-52.0); Hemoglobin 10.7 g/dl (14.0-18.0); Mean Corpuscular Hemoglobin 30.6 pg (25.0-34.0); Mean Corpuscular Hgb Conc 32.1 g/dL (32.0-36.0); Mean Corpuscular Volume 95.1 fL (80.0-100.0); Mean Platelet Volume 11.9 fL (9.4-12.4); Platelet Count 151 K/uL (130-400); RDW Coefficient of Variation 16.1 % (11.5-14.5); RDW Standard Deviation 56.3 fL (36.4-46.3); White Blood Count 6.91 K/ul (4.8-10.8)
[2024-11-27 07:56] LABS: BUN Creatinine Ratio 9.1 (10-20); Calcium 9.9 mg/dl (8.6-10.3); Phosphorus 4.3 mg/dl (2.5-4.9); Potassium 3.7 mmol/L (3.5-5.1)
--- NOTE | 2024-11-27 10:29 | Nephrology Progress Note ---
Date of Service November 27, 2024 Assessment & Plan Admission and Anticipated Discharge Date Admission Date: November 24, 2024 Subjective Assessment & Plan (1) End-stage renal disease on hemodialysis: patient has end-stage renal disease on hemodialysis Sunday and will do him again tomorrow. . At this time no major evidence of electrolyte problems but he does have evidence of fluid overload with pulmonary edema and shortness of breath. Will do dialysis for 3.5 hour and take 2--2.5 kilo off Hemoglobin is 10+ which is at goal. We will be using heparin as per his outp atient protocol. No need of Dialysis today. electrolytes are acceptable. (2) Acute exacerbation of chronic obstructive pulmonary disease: it appears he does have combination of COPD flare-up as well as some degree of volume overload as the cause of his shortness of breath. He is getting appropriate treatment for COPD flare up (3) Volume overload: his pulmonary edema on the chest x-ray and we did take 2.5 kilos fluid off with dialysis yesterday S--had 2.5 kilo removed with dialysis yesterday. Breathing is better. Now has parainfluenzae. physical examination elderly white male who appears to be in moderate respiratory distress. Oxygen saturation 98% on 2 L nasal cannula blood pressure is 1 20 x 63 pulse rate 66 temperature 36.7. mucous membrane is moist neck is supple no JVD. Chest bilateral decreased breath sound prolonged expiration occasional basal crackles bilaterally CVS S1-S2 regular S1 and S2 heard soft systolic murmur heard abdomen is soft nontender extremities without edema. Results & Data Vital Signs (Past 12 Hours) Vital Signs Temp Pulse Resp BP Pulse Ox O2 Del Method O2 Flow Rate 11/27/24 07:50 37.2 C 86 16 128/68 99 Nebulizer 11/27/24 07:09 Room Air 11/27/24 07:06 86 18 99 Nasal Cannula 2 11/27/24 02:42 37.0 C 87 20 135/67 94 Room Air
[2024-11-27 11:51] VITALS: BP 114/69; RESP 16; TEMP 98.6
--- NOTE | 2024-11-27 11:59 | Discharge Summary ---
Date of Service November 27, 2024 Admission HPI Per Admitting Provider This is an 79-year-old male who has a significant past medical history of ESRD on HD Sunday, T2DM, diabetic peripheral neuropathy, diabetic retinopathy, PVD, secondary hyperparathyroidism, COPD, tobacco abuse, hypertension, aortic stenosis s/p TAVR in 2021, anemia of chronic disease, BPH who presents to ED secondary to shortness of breath x 1 month. History was obtained from patient as well as external chart review. His last hemodialysis was on Sunday. Patient was last confined in September 2024 secondary to a COPD exacerbation. His hospital course was unremarkable. He reports over the last month he has been more short of breath. He feels the shortness of breath has stayed the same, "but I figured it was time to get evaluated." He did not go to dialysis today and opted to come to ED instead. He has a chronic cough with his COPD, but states it is minimal and minimally productive. He feels this is unchanged. He does admit to slight increased wheezing. He has been doing nebulizer treatments twice daily. He denies any recent illness over the last month, sick contacts, fever, chills, sweats, lightheadedness, dizziness, Hemoptysis,nausea, vomiting, abdominal pain, diarrhea, dysuria, increased urgency or frequency with urination or hematuria. He does still make urine. He does not weigh himself on a regular basis, but feel his weights at dialysis are unchanged. He does not follow his fluid restriction. He does report an episode of left-sided nonradiating chest pain approximately 1 week ago when he was exerting himself. He states he does occasionally get chest pain when he exerts himself. After resting for 15 minutes it resolved. He was not evaluated for this. He denied any radiation of symptoms, diaphoresis or nausea associated with this. in ED patient did require 2 L of supplemental oxygen. He also received 125 mg of IV Solu-Medrol and a DuoNeb treatment. He reports feeling better since arrival to the ED. Of note patient does follow with podiatry/wound care. He reports an upcoming appointment for his right great toe. He currently uses a [employer] shoe. Currently he denies any open wounds. He recently underwent an MRI in early November which revealed chronic cellulitic changes, but no evidence of osteomyelitis. Admission Exam Per Admitting Provider Constitutional: chronically ill appearing, WD/WN, vitals as above, NAD, sitting up in bed, pleasant, conversing easily Head: Normocephalic, Atraumatic Eyes: PERRL, conjunctivae normal, anicteric sclerae ENMT: external ear and nose normal, oropharynx normal Neck: trachea midline, no thyromegaly normal visual inspection Respiratory: normal respiratory effort, lungs clear to auscultation, expiratory wheeze throughout, diminished at bases, no rales, rhonchi. Normal insp/exp effort, no accessory muscle use Cardiovascular: RRR, no murmur, no edema Vessels: no JVD or carotid bruit Chest: normal inspection of chest , LUE AVF Abdomen: normal bowel sounds, soft, nontender, no hepatosplenomegaly Musculoskeletal: no cyanosis or clubbing, AROM x 4 Skin: no rashes, warm and dry normal turgor Neurologic: no face palsy, no dysarthria CN's II-XI intact bilaterally and moves all extremities Psychiatric: A+Ox3, euthymic affect Principal Diagnosis Acute respiratory failure with hypoxia: Acute Pulmonary Edema-in setting of ESRD and possible CAP Parainfluenza 4 viral URTI ESRD on dialysis: Discharge Exam Gen: AOx3, on 1L NC O2, NAD HEENT: NCAT, EOMI, not icteric. External ears normal. No rhinorrhea. Moist mucous membranes. Neck: Supple, full range of motion, no observable masses, No meningeal sign. Lungs: crackles noted bilaterally CV: RRR, no edema. Abdomen: Soft, nondistended, No rebound tenderness. MSK: No joint swelling, no redness. Skin: No rashes, petechiae, lesions. Normal color per patient. Neuro: Normal Gait, Grossly intact. Psych: Appropriate for situation. Discharge Data Allergies Allergy/AdvReac Type Severity Reaction Status Date / Time No Known Allergies Allergy Verified 10/23/24 13:05 Consultations 11/24/24 10:24 Consult Nephrology Routine 11/24/24 10:31 ED Decision to Admit Stat Hospital Course (1) Parainfluenza infection: Plan 79-year-old male with PMH of ESRD on hemodialysis [MWF], T2DM, diabetic peripheral neuropathy, diabetic retinopathy, PVD, secondary hyperparathyroidism, COPD, tobacco abuse, HTN, aortic stenosis status post TAVR in 2021, anemia of chronic disease, BPH presented to the ED secondary to shortness of breath x 1 month. He was managed for the following: Acute respiratory failure with hypoxia: Acute Pulmonary Edema-in setting of ESRD and possible CAP Parainfluenza 4 viral URTI -suspect hypoxia/SOB multifactorial in setting of COPD exac, volume overload iso ESRD, possible CAP iso viral urti. -resp biofire +ve for parainfluenza 4 -Taper prednisone on dc, c/w duonebs prn on dc, nebulizer prescription to be given to CM. PO mucninex on dc. -augmentin/Doxycycline 100mg bid for 7 days given concern for overlying CAP given cough. Probiotics added. -continue dialysis -Pt back to room air and feels back to his baseline. ESRD on dialysis: Plan: -patient has evidence of fluid overload on chest xray -MWF schedule Plan: -nephrology consulted, appreciate recs -continue dialysis -wean down o2 as radha, now w/ improved O2 requirement, will get 2 step test prior to dc to ensure he doesn't need home O2. Myocardial injury: -appears to have chronic elevated troponins -downtrended durign this visit, ECHO w/ EF of 50-55%, LV wall motion nl. - pt denies chest pain. Hypertension: -continue amlodopine Diabetes mellitus, type 2: -insulin protocol DVT prophylaxis: Heparin subcu DNR/DNI PT/OT, CM to assist with DC planning. PT/OT recommended rehab, patient and his daughter would like to take patient home with home health rather than rehab as he has increased tendency to get confused/altered at rehab. He is being discharged home with home health with following instructions at the point of discharge: Follow-up with your primary care physician within a week time and likely you will need labs CBC/CMP/magnesium/phosphorus. You were evaluated for parainfluenza 4 viral upper respiratory tract infection and possible bacterial pneumonia. You will be discharged on antibiotic to complete the 7-day course. You will be discharged on tapering dose of prednisone, complete the course as prescribed. Follow-up with your dialysis as prior. Take your medications as prescribed. Please make sure that you are able to get your medications today by calling your pharmacy before you leave the hospital so that your treatment continuity is not broken. Home Health Attestation I certify that this patient is under my care and that I, or a physicians assistant kitchen manager working with me, had a face to-face encounter that meets the home health [id number] encounter requirements with this patient. The encounter with the patient was in whole, or in part, for the following medical condition, which is the primary reason for home health care (list medical condition): I certify that, based on my findings, the following services are medically necessary home health services: My clinical findings support the need for the above services because: Home Safety Assessment Medication Compliance and Monitoring Effective of New Medications OT Assess ADL Status and Restore Function w ADLs PT Assessment for Endurance / Balance / Strength PT Eval for Safety, Gait Training, Assistive Devices PT Gait and Balance Training, Strengthening and Safety Skilled Nsg Assessment Skilled Nsg Instruction New Medications Further, I certify that my clinical findings support that this patient is homebound (i.e. absences from home require considerable and taxing effort and are for medical reasons or amish services or infrequently or of short duration when for other reasons) because: Certification for Home Health Services: Based on the above findings, I certify that this patient is confined to the home and needs intermittent long term care, physical therapy and/or speech therapy or continues to need occupational therapy. The patient is under my care, and I have initiated the establishment of the plan of care. This patient will be followed by a physician who will periodically review the plan of care. Total Time Total Time Spent Total Time Spent (In Minutes): 35 Discharge Plan Discharge Items Patient Disposition: Transfer Assisted Fac Reason For Visit: SHORTNESS OF BREATH, HYPOXIA Discharge Diagnosis: Acute respiratory failure with hypoxia: Acute Pulmonary Edema-in setting of ESRD and possible CAP Parainfluenza 4 viral URTI ESRD on dialysis: Activity: Resume your previous activity Exercise/Sports: Gradually increase as tolerated Weightbearing: Full weightbearing Non-emergency contact: Primary Care Provider and Dry Mixer Call non-emergency contact if: you have any medication questions Follow-up/Referrals: Rell Salazar MD [Hospitalist] - (Date & Time 12/01/2024 11:20 AM Provider: Rell Salazar MD Family Medicine [facility] ) Diet: Dialysis Renal Addtl Attending Provider Instructions: Follow-up with your primary care physician within a week time and likely you will need labs CBC/CMP/magnesium/phosphorus. You were evaluated for parainfluenza 4 viral upper respiratory tract infection and possible bacterial pneumonia. You will be discharged on antibiotic to complete the 7-day course. You will be discharged on tapering dose of prednisone, complete the course as prescribed. Follow-up with your dialysis as prior. Take your medications as prescribed. Please make sure that you are able to get your medications today by calling your pharmacy before you leave the hospital so that your treatment continuity is not broken. Pending Studies at Discharge: No Stand-Alone Forms: My [facility] Skilled Items Patient informed of condition?: Yes DNR: No Discharge Level of Care: Skilled Communicable Disease: No Discharge Prognosis: Improving Lines: None Urinary Catheter: No Medications and DC Order Prescriptions: New amoxicillin-pot clavulanate 500-125 mg Tablet 1 tab PO BIDM 5 Days Qty: 10 0RF doxycycline hyclate 100 mg Capsule 100 mg PO BID 4 Days Qty: 8 0RF ipratropium-albuterol 0.5 mg-3 mg(2.5 mg base)/3 mL Solution For Nebulization 3 ml NEB Q4H PRN (Reason: shortness of breath or wheezing) Qty: 90 0RF prednisone 20 mg Tablet 40 mg PO UD Qty: 5 0RF Rx Instructions: 40 mg daily x 1 day, then 20 mg daily x 3 days. Probiotic 3 billion cell capsule 3,000 mmu cells PO DAILY 7 Days Qty: 7 0RF Rx Instructions: administer with a meal guaifenesin [Mucinex] 600 mg tablet extended release 12hr 600 mg PO BID 5 Days Qty: 10 0RF Continued tamsulosin 0.4 mg capsule 0.4 mg PO HS atorvastatin 40 mg Tablet 40 mg PO QAM finasteride 5 mg Tablet 5 mg PO HS cholecalciferol (vitamin D3) [Vitamin D3] 1,000 unit (25 mcg) Tablet 1,000 unit PO PM aspirin 81 mg Tablet,Delayed Release (Dr/Ec) 81 mg PO QAM pantoprazole 20 mg tablet,delayed release (DR/EC) 20 mg PO QAM albuterol sulfate 90 mcg/actuation HFA aerosol inhaler 2 puff INHALATION QID PRN (Reason: Wheezing) fluticasone furoate-vilanterol [Breo Ellipta] 200-25 mcg/dose Blister With Device 1 inh INHALATION DAILY PRN (Reason: Shortness Of Breath Or Wheezing) citalopram 20 mg tablet 20 mg PO PM Velphoro 500 mg tablet,chewable 500 mg PO TIDM Xphozah 30 mg tablet 30 mg PO BID amlodipine 5 mg tablet 5 mg PO QAM gabapentin 100 mg capsule 100 mg PO DAILY PRN (Reason: NEUROPATHY) Tradjenta 5 mg Tablet 5 mg PO DAILY Discharge Orders: Discharge Order (Routine); Ordered 11/27/24 Ordered By: Ericka Lua Admission Data Admit Date/Time: 11/24/24 10:24 Attending Provider: Ericka Lua Admit Provider: Hans Winters Primary Care Provider: Sampson Jimenez Other Providers: Pro Ortiz; Hans Winters; Saurabh Colon [facility]
[2024-11-27 12:12] VITALS: PULSE 94; O2SAT 96
== END 2024-11-27 14:16 | disposition home health service (06) | DRG 291 ==
LOC: ED 08:33 → EDINP 10:24 → SUATTDRO 10:24 → 2W 11:43

== ENCOUNTER 2024-12-06 10:25 | Inpatient (IN) ==
--- NOTE | 2024-12-06 10:38 | Emergency Department Note ---
Impression & Plan Shortness of breath, Chest pain ED Provider Note NAME: FERNANDA FLORES AGE: 79 SEX: M : 1945 ARRIVES VIA: Ambulance INFORMANT: Patient ED PROVIDER(S): Alen Soto DO CHIEF COMPLAINT: Chest pain, shortness of breath HPI: Patient is an 79-year-old male on dialysis with a past medical history of CKD, hypertension, volume overload, community-acquired pneumonia and diabetes who presents to the ER for shortness of breath which started last night. He admits to a cough but that is unchanged. He has exertional chest pain and shortness of breath. The chest pain does go to his jaw. It improves/resolves with rest. No pain currently. Denies any belly pain, nausea, vomiting, or diarrhea. No dysuria, urgency, or frequency. No other exacerbating or remitting factors. He had a complete course of dialysis yesterday. ADDITIONAL HISTORY OBTAINED: Per HPI Chronic Medical/Social Conditions Affecting Care: Per HPI PAST MEDICAL HISTORY:See Below PAST SURGICAL HISTORY:See Below FAMILY HISTORY:See Below SOCIAL HISTORY:See Below HOME MEDICATIONS:See Below ALLERGIES:See Below VITALS:See Below PHYSICAL EXAMINATION: GENERAL: Sitting up in bed, alert, chronically ill-appearing, disheveled EYE EXAM: normal conjunctiva. OROPHARYNX: no exudate, no erythema, lips, buccal mucosa, and tongue normal and mucous membranes are moist NECK: supple, no nuchal rigidity, no adenopathy, non-tender LUNGS: Clear to auscultation. Normal chest wall mechanics HEART: no murmurs, S1 normal and S2 normal ABDOMEN: abdomen soft, non-tender, normo-active bowel sounds, no masses, no rebound or guarding. UPPER EXTREMITIES: upper extremities are grossly normal. Fistula and left upper extremity. Positive thrill. LOWER EXTREMITIES: No pitting edema. NEURO EXAM: Normal sensorium, cranial nerves II-XII grossly intact, normal speech, no gross weakness of arms, no gross weakness of legs. MEDICAL DECISION MAKING: Patient is an 79-year-old male with a past medical history of tobacco abuse, respiratory failure, CKD and CHF who presents ER for above-stated complaint. IV was established and blood work was obtained. Labs show no significant leukocytosis. Mild anemia 10.2. Platelets were unremarkable. BMP with a creatinine of 3.3 which is acceptable in a patient on dialysis Sunday. Last full course was Sunday. LFTs and bilirubin were unremarkable. Troponin mildly elevated at 100 which does appear to be fairly consistent with previous. Lipase was normal. Chest x-ray with what appears to be volume overload. Patient was given aspirin. He had no complaints while he is in the ER. He was updated bedside and discussed with the hospitalist for further evaluation management treatment. Consults/Care Managements Discussions: Per [facility] Triage Nursing notes reviewed. Limited review of prior medical records performed Vital Signs: reviewed and remarkable for no significant abnormalities Differential diagnosis: Cardiac ischemia, aortic dissection, pulmonary embolism, pneumothorax, pneumonia, pericarditis, myocarditis, esophageal rupture, GERD, cholecystitis, pancreatitis, musculoskeletal, as well as other pathologies. ER treatment provided: See below Diagnostics interpreted by me include EKG and cardiac monitoring as listed below: -Cardiac Monitoring: An order was placed for continuous cardiac monitoring. The monitor shows a rate of 75 with sinus rhythm. -ECG: Sinus rhythm rate of 75 Left axis Right bundle branch block QTc 504 -Laboratory studies:Interpreted by me as stated above in MDM and shown below. Imaging studies: Xrays: As interpreted by me: Portable AP upright 1 view of the chest shows pulmonary congestion CTs show: none Procedures:none Critical Care: None Past Med/Surg History Problem List (Updated 12/06/24 @ 15:29 by Alen Soto DO) Chest pain (Acute) Shortness of breath (Acute) Acute respiratory failure CAP (community acquired pneumonia) Myocardial injury Parainfluenza infection Tobacco abuse (Acute) Acute exacerbation of chronic obstructive pulmonary disease (Acute) Acute dyspnea (Acute) End-stage renal disease on hemodialysis (Acute) Volume overload (Acute) SOB (shortness of breath) Pulmonary vascular congestion (Acute) ESRD on dialysis (Acute) CKD (chronic kidney disease) (Acute) Tobacco abuse (Acute) Hypertension (Chronic) CKD (chronic kidney disease), stage IV Gastritis CHF (congestive heart failure) Acute respiratory failure with hypoxia Renal failure (Acute) Severe calcific aortic valve stenosis Peritoneal dialysis catheter in situ since removed Tobacco use ESRD (end stage renal disease) on dialysis (Acute) M/W/F > [facility] in [place] Hyperlipidemia BPH (benign prostatic hyperplasia) Diabetes mellitus, type 2 NIDDM Chronic anemia Medical History (Updated 12/06/24 @ 15:29 by Alen Soto DO) Open wound of right lower leg Open wound of right heel Non-ST elevation OH (NSTEMI) Traumatic open wound of left lower leg Gram-positive bacteremia Severe sepsis Bacteremia due to Enterococcus Acute hyponatremia Elevated troponin I level Dialysis AV fistula malfunction Encounter for pre-operative examination Clostridioides difficile diarrhea SBO (small bowel obstruction) SBO (small bowel obstruction) Epigastric abdominal pain CHF (congestive heart failure) DVT prophylaxis CKD (chronic kidney disease) stage 5, GFR less than 15 ml/min follows with Dr. Jay Angina pectoris Encounter for pre-operative examination Diabetic foot ulcer Dialysis patient Tobacco abuse PAD (peripheral artery disease) CHF (congestive heart failure) AV fistula left wrist Osteoarthritis Anxiety and depression Hypertension Surgical History (Updated 11/25/24 @ 13:20 by Charles Dietz MD) S/P cholecystectomy S/P TAVR (transcatheter aortic valve replacement) SBO (small bowel obstruction) with surgical intervention History of esophagogastroduodenoscopy (EGD) History of colonoscopy History of cholecystectomy History of tooth extraction History of cataract surgery RT/LEFT History of procedure for peripheral vascular disease LEFT LEG (STENT PLACED) Cardiac murmur no cardio Family History Brother Cancer Social History Smoking Status: Current every day smoker Tobacco Type: Cigarettes Age Started Using Tobacco: 16; packs per day: 0.5; Cigarettes Per Day: 10; Second Hand Exposure: No; Do You Dip or Chew Tobacco: No; Tobacco Cessation Education Requested by Patient: No Hx Alcohol Use: Yes Alcohol type: beer Hx Substance Use: No Preferred Language: Bulgarian Communication Ability: Effective Visual Impairment: No Limitations Hearing Ability: Hard of Hearing Facilities Painter Required: No Beliefs That Will Affect Care: None marital status: Single Current Living Situation: Alone Current Living Situation Comment: daughter helps with cooking and cleaning current occupational status: retired 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 Other Information That Helps Us Care for You: No Feels Safe at Home: Yes Diet: regular during the past year weight has: remained stable Assistive Devices: Oxygen - Continuous Allergies Allergies Allergy/AdvReac Type Severity Reaction Status Date / Time No Known Allergies Allergy Verified 10/23/24 13:05 Home Meds Home Medications Medication Instructions Recorded Confirmed atorvastatin 40 mg tablet 40 mg PO QAM 07/31/19 12/06/24 cholecalciferol (vitamin D3) 25 1,000 unit PO PM 07/31/19 12/06/24 mcg (1,000 unit) tablet (Vitamin D3) finasteride 5 mg tablet 5 mg PO HS 07/31/19 12/06/24 aspirin 81 mg tablet,delayed 81 mg PO QAM 01/06/20 12/06/24 release albuterol sulfate 90 mcg/actuation 2 puff inhalation QID PRN Wheezing 04/09/24 12/06/24 aerosol inhaler fluticasone furoate 200 1 inh inhalation DAILY PRN 04/09/24 12/06/24 mcg-vilanterol 25 mcg/dose Shortness Of Breath Or Wheezing inhalation powder (Breo Ellipta) pantoprazole 20 mg tablet,delayed 20 mg PO QAM 04/09/24 12/06/24 release tamsulosin 0.4 mg capsule 0.4 mg PO HS 08/21/24 12/06/24 amlodipine 5 mg tablet 5 mg PO QAM 09/24/24 12/06/24 citalopram 20 mg tablet 20 mg PO PM 09/24/24 12/06/24 gabapentin 100 mg capsule 100 mg PO DAILY PRN NEUROPATHY 09/24/24 12/06/24 sucroferric oxyhydroxide 500 mg 500 mg PO TIDM 09/24/24 12/06/24 chewable tablet (Velphoro) tenapanor 30 mg tablet (Xphozah) 30 mg PO BID 09/24/24 12/06/24 linagliptin 5 mg tablet (Tradjenta) 5 mg PO DAILY 11/24/24 12/06/24 Previous Rx's Medication Instructions Recorded ipratropium 0.5 mg-albuterol 3 mg 3 ml NEB Q4H PRN shortness of 11/27/24 (2.5 mg base)/3 mL nebulization breath or wheezing #90 mL soln Results & Data (ED) Vital Signs Vital Signs - 24 hr 12/06/24 10:35 12/06/24 10:36 12/06/24 10:36 Temperature 36.6 C Temperature Source Oral Pulse Rate 77 77 Pulse Rate [Apical] Pulse Rate from SpO2 Sensor Pulse Rhythm Irregular Regular Pulse Rhythm [Apical] Pulse Strength Normal Pulse Strength [Apical] Respiratory Rate 18 18 Respiratory Effort / Characteristics Non-Labored Spontaneous Non-Labored Spontaneous Respiratory Depth Normal Normal Respiratory Pattern Regular Regular Blood Pressure 109/64 Blood Pressure [Right Arm] Blood Pressure Mean 79 Blood Pressure Mean [Right Arm] Blood Pressure Position Lying Pulse Oximetry 94 94 Oxygen Delivery Method Room Air Room Air Room Air Oxygen Flow Rate Sepsis Recent Fever Within 48 Hours No Sepsis New/Unexplained Change in Mental Status No Sepsis Action Taken by Nursing No Action Required 12/06/24 10:36 12/06/24 10:36 12/06/24 12:10 Temperature Temperature Source Pulse Rate 66 Pulse Rate [Apical] 77 Pulse Rate from SpO2 Sensor Pulse Rhythm Pulse Rhythm [Apical] Regular Pulse Strength Pulse Strength [Apical] Normal Respiratory Rate 18 Respiratory Effort / Characteristics Non-Labored Spontaneous Respiratory Depth Normal Respiratory Pattern Regular Blood Pressure Blood Pressure [Right Arm] 109/64 Blood Pressure Mean Blood Pressure Mean [Right Arm] 79 Blood Pressure Position Pulse Oximetry 94 Oxygen Delivery Method Room Air Room Air Oxygen Flow Rate Sepsis Recent Fever Within 48 Hours Sepsis New/Unexplained Change in Mental Status Sepsis Action Taken by Nursing 12/06/24 12:15 12/06/24 13:00 Temperature Temperature Source Pulse Rate 65 67 Pulse Rate [Apical] Pulse Rate from SpO2 Sensor 64 66 Pulse Rhythm Pulse Rhythm [Apical] Pulse Strength Pulse Strength [Apical] Respiratory Rate 18 13 Respiratory Effort / Characteristics Respiratory Depth Respiratory Pattern Blood Pressure 141/71 H 144/68 H Blood Pressure [Right Arm] Blood Pressure Mean 94 102 Blood Pressure Mean [Right Arm] Blood Pressure Position Pulse Oximetry 98 99 Oxygen Delivery Method Nasal Cannula Nasal Cannula Oxygen Flow Rate 2 2 Sepsis Recent Fever Within 48 Hours Sepsis New/Unexplained Change in Mental Status Sepsis Action Taken by Nursing Laboratory Data 12/06/24 10:44 12/06/24 10:44 Lab Results 12/06/24 12/06/24 Range/Units 10:44 12:55 WBC 10.21 (4.8-10.8) K/ul RBC 3.36 L (4.70-6.10) M/uL Hgb 10.2 L (14.0-18.0) g/dl Hct 32.7 L (42.0-52.0) % MCV 97.3 (80.0-100.0) fL MCH 30.4 (25.0-34.0) pg MCHC 31.2 L (32.0-36.0) g/dL RDW Std Deviation 60.0 H (36.4-46.3) fL RDW Coeff of Danny 17.2 H (11.5-14.5) % Plt Count 158 (130-400) K/uL MPV 12.5 H (9.4-12.4) fL Immature Gran % (Auto) 1.2 % Neut % (Auto) 76.4 % Lymph % (Auto) 11.6 % Gates % (Auto) 9.7 % Eos % (Auto) 0.8 % Baso % (Auto) 0.3 % Neut # (Auto) 7.81 H (1.40-6.50) K/uL Lymph # (Auto) 1.18 L (1.20-3.40) K/uL Gates # (Auto) 0.99 H (0.11-0.59) K/uL Eos # (Auto) 0.08 (0.00-0.50) K/uL Baso # (Auto) 0.03 (0.00-0.20) K/uL Immature Gran # (Auto) 0.12 (0.01-0.20) K/uL Sodium 137 (136-145) mmol/L Potassium 3.8 (3.5-5.1) mmol/L Chloride 95 L (98-107) mmol/L Carbon Dioxide 33 H (21-32) mmol/L Anion Gap 9 (3-11) BUN 33 H (6-23) mg/dl Creatinine 3.38 H (0.6-1.4) mg/dl Est Cr Clr Drug Dosing 17.1 ml/min eGFR 17.53 BUN/Creatinine Ratio 9.8 L (10-20) Glucose 333 H* (70-99(Fasting)) mg/dl Calcium 10.5 H (8.6-10.3) mg/dl Total Bilirubin 1.0 (0.2-1.0) mg/dl AST 29 (13-39) U/L ALT 20 (7-52) U/L Alkaline Phosphatase 72 (34-104) U/L Troponin I High Sens 115.0 H* 108.3 H* (0-20) pg/ml B-Natriuretic Peptide > 4700 H (0-100) pg/ml Total Protein 6.8 (6.0-8.3) gm/dl Albumin 3.7 (3.4-5.0) gm/dl Globulin 3.1 (2.5-4.0) gm/dl Albumin/Globulin Ratio 1.2 (0.9-2) Lipase 34 (11-82) U/L Administered Medications Prednisone (Prednisone 20 Mg Tab) 40 mg PO DAILY RANDY Stop: 01/05/25 13:59 Last Admin: 12/06/24 14:19 Dose: 40 mg Documented By: Discontinued Medications Aspirin (Aspirin Chew 324 Mg) 324 mg PO NOW STA Stop: 12/06/24 12:22 Last Admin: 12/06/24 13:03 Dose: 324 mg Documented By: SRL Imaging Data Radiologist's Impression: Chest X-Ray 12/06/24 10:35 EXAM: Radiograph of the Chest 1 View INDICATION: Dyspnea. TECHNIQUE: Frontal view of the chest. COMPARISON: 11/26/2024 FINDINGS: Lungs and pleural spaces: Stable diffuse interstitial and airspace infiltrates and small pleural effusions left greater than right. No pneumothorax. Heart: Stable large cardiac shadow with aortic valve prosthetic stents. Mediastinum: Normal contour. Bones/joints: No fracture, erosion or dislocation. Soft tissues: No abnormality noted. No radiopaque foreign body noted. Upper abdomen: No abnormality noted. IMPRESSION: Stable diffuse interstitial and airspace infiltrates and small pleural effusions left greater than right. ACT 112: Negative or not required by law. Electronically signed by Breanne Camarillo 12-06-2024 11:22 AM Discharge Plan Visit Data Chief Complaint: Shortness of Breath/Dyspnea Stated Complaint: SOB, CHEST DISCOMFORT ED Provider: Alen Soto Discharge Problem: Shortness of breath, Chest pain Discharge Problem: Chest pain Qualifiers: Chest pain type: unspecified Qualified Code(s): R07.9 - Chest pain, unspecified
[2024-12-06 11:04] LABS: Basophils # (auto) 0.03 K/uL (0.00-0.20); Basophils % (auto) 0.3 %; Eosinophils # (auto) 0.08 K/uL (0.00-0.50); Eosinophils % (auto) 0.8 %; Hematocrit (blood only) 32.7 % (42.0-52.0); Hemoglobin 10.2 g/dl (14.0-18.0); Immature Granulocytes # (auto) 0.12 K/uL (0.01-0.20); Immature Granulocytes % (auto) 1.2 %; Lymphocytes # (auto) 1.18 K/uL (1.20-3.40); Lymphocytes % (auto) 11.6 %; Mean Corpuscular Hemoglobin 30.4 pg (25.0-34.0); Mean Corpuscular Hgb Conc 31.2 g/dL (32.0-36.0); Mean Corpuscular Volume 97.3 fL (80.0-100.0); Mean Platelet Volume 12.5 fL (9.4-12.4); Monocytes # (auto) 0.99 K/uL (0.11-0.59); Monocytes % (auto) 9.7 %; Neutrophils # (auto) 7.81 K/uL (1.40-6.50); Neutrophils % (auto) 76.4 %; Platelet Count 158 K/uL (130-400); RDW Coefficient of Variation 17.2 % (11.5-14.5); Red Blood Count 3.36 M/uL (4.70-6.10); White Blood Count 10.21 K/ul (4.8-10.8)
--- NOTE | 2024-12-06 11:22 | XRay Report ---
EXAM: Radiograph of the Chest 1 View INDICATION: Dyspnea. TECHNIQUE: Frontal view of the chest. COMPARISON: 11/26/2024 FINDINGS: Lungs and pleural spaces: Stable diffuse interstitial and airspace infiltrates and small pleural effusions left greater than right. No pneumothorax. Heart: Stable large cardiac shadow with aortic valve prosthetic stents. Mediastinum: Normal contour. Bones/joints: No fracture, erosion or dislocation. Soft tissues: No abnormality noted. No radiopaque foreign body noted. Upper abdomen: No abnormality noted. IMPRESSION: Stable diffuse interstitial and airspace infiltrates and small pleural effusions left greater than right. ACT 112: Negative or not required by law. Electronically signed by Breanne Camarillo 12-06-2024 11:22 AM
[2024-12-06 11:28] LABS: Albumin Globulin Ratio 1.2 (0.9-2); Albumin Level 3.7 gm/dl (3.4-5.0); BUN Creatinine Ratio 9.8 (10-20); Calcium 10.5 mg/dl (8.6-10.3); Creatinine Clr Calc Pharmacy 17.1 ml/min; Globulin 3.1 gm/dl (2.5-4.0); Potassium 3.8 mmol/L (3.5-5.1); Total Protein 6.8 gm/dl (6.0-8.3)
--- NOTE | 2024-12-06 12:42 | History & Physical Report ---
Date of Service December 06, 2024 Assessment & Plan (1) SOB (shortness of breath): (2) Pulmonary vascular congestion: (3) ESRD (end stage renal disease) on dialysis: (4) Diabetes mellitus, type 2: (5) Hyperlipidemia: (6) CKD (chronic kidney disease): Plan Chronic respiratory failure Acute Pulmonary Edema-in setting of ESRD Hx of Parainfluenza 4 viral Upper resp Infection COPD exacerbation with ? prolonged bronchitis -suspect hypoxia/SOB multifactorial in setting of COPD exac, volume overload iso ESRD, CHF exacerbation, recent upper respiratory viral infection, Prolonged bronchitis - resp biofire +ve for parainfluenza 4 during recent hospital stay - Prednisone 40 mg daily and will require long taper over at least 2 weeks. Cont budesonide and fomoterol inh BID, and duonebs Q6H, incentive spirometry, flutter - Finished augmentin/Doxycycline 100mg bid for 7 days on 12/04 so will hold on further abx at this time - continue dialysis Oral candidiasis - Nystatin swish and swallow - likely due to neb tx and not rinsing mouth out afterwards ESRD on dialysis: -CXR as above -MWF schedule -nephrology consulted, appreciate recs -continue dialysis Myocardial injury: -appears to have chronic elevated troponins - Trend Q6H trops. Recent ECHO w/ EF of 50-55%, LV wall motion nl from last admission. No repeat today unless troponins significantly elevate Hypertension -continue amlodipine Diabetes mellitus, type II - ISS with accuchecks achs - A1C 6.2 in September 2024 DVT prophylaxis: Heparin subcu Lines: PIV x 1 FEN/GI: DNR/DNI PT/OT, CM to assist with DC planning. A total of 75 minutes were spent with greater than 50% of that time face to face with the patient, personally reviewing all current laboratories, imaging studies, past medication reconciliation, outpatient chart review, and discussion with specialists to collaborate care for the patient with attending. Please see attending documentation for corrections and/or additions. History of Present Illness Primary Care Provider: Sampson Jimenez This is a 79-year-old male who has a significant past medical history of ESRD on HD Sunday, T2DM, diabetic peripheral neuropathy, diabetic retinopathy, PVD, secondary hyperparathyroidism, COPD, tobacco abuse, hypertension, aortic stenosis s/p TAVR in 2021, anemia of chronic disease, BPH who presents to the hospital with exertional chest pain and shortness of breath. He has had worsening breathing over the past 3 days. He did complete his outpatient course of antibiotics. He notes that with exertion he notices chest pain, which is relieved after approximately 15 minutes of rest. This has been an ongoing issue for some time now, and he states that occasionally when he uses a nebulizer treatment this does improve his breathing which improves his chest pain. Other major complaint today is of sore mouth, burning throat, pain with swallowing. There is some white exudate in his mouth. He took all of his morning medications today. Patient completed full dialysis session yesterday. His daughter visits him at least once per day, and has a visiting nurse at home who comes in once per week and was there yesterday. This is very similar to most recent admission where pt was here from 11/24/24- 11/27/24. At that time the patient had an elevated troponin up to 137 and trended down to 90. He had an echocardiogram completed which showed moderate concentric LVH, LVEF of 50 to 55%, COREY TAVR present, prosthetic leaflet appeared mobile but mildly restricted in mobility. Velocities of the valve are elevated and suggestive of moderate prosthesis stenosis. Trace aortic regurg, mild to moderate mitral regurg, trace tricuspid regurg. CXR today shows stable diffuse interstitial and airspace infiltrates and small pleural effusions left greater than right. BNP is 4700 and Troponin is 115. Allergies Allergy/AdvReac Type Severity Reaction Status Date / Time No Known Allergies Allergy Verified 10/23/24 13:05 Home Medications Medication Instructions Recorded Confirmed Type atorvastatin 40 mg tablet 40 mg PO QAM 07/31/19 12/06/24 History cholecalciferol (vitamin D3) 25 1,000 unit PO PM 07/31/19 12/06/24 History mcg (1,000 unit) tablet (Vitamin D3) finasteride 5 mg tablet 5 mg PO HS 07/31/19 12/06/24 History aspirin 81 mg tablet,delayed 81 mg PO QAM 01/06/20 12/06/24 History release albuterol sulfate 90 mcg/actuation 2 puff inhalation QID PRN Wheezing 04/09/24 12/06/24 History aerosol inhaler fluticasone furoate 200 1 inh inhalation DAILY PRN 04/09/24 12/06/24 History mcg-vilanterol 25 mcg/dose Shortness Of Breath Or Wheezing inhalation powder (Breo Ellipta) pantoprazole 20 mg tablet,delayed 20 mg PO QAM 04/09/24 12/06/24 History release tamsulosin 0.4 mg capsule 0.4 mg PO HS 08/21/24 12/06/24 History amlodipine 5 mg tablet 5 mg PO QAM 09/24/24 12/06/24 History citalopram 20 mg tablet 20 mg PO PM 09/24/24 12/06/24 History gabapentin 100 mg capsule 100 mg PO DAILY PRN NEUROPATHY 09/24/24 12/06/24 History sucroferric oxyhydroxide 500 mg 500 mg PO TIDM 09/24/24 12/06/24 History chewable tablet (Velphoro) tenapanor 30 mg tablet (Xphozah) 30 mg PO BID 09/24/24 12/06/24 History linagliptin 5 mg tablet (Tradjenta) 5 mg PO DAILY 11/24/24 12/06/24 History ipratropium 0.5 mg-albuterol 3 mg 3 ml NEB Q4H PRN shortness of 11/27/24 12/06/24 Rx (2.5 mg base)/3 mL nebulization breath or wheezing #90 mL soln Past Med/Surg History Problem List (Updated 11/27/24 @ 11:51 by Ericka Lua MD) Acute respiratory failure CAP (community acquired pneumonia) Myocardial injury Parainfluenza infection Tobacco abuse (Acute) Acute exacerbation of chronic obstructive pulmonary disease (Acute) Acute dyspnea (Acute) End-stage renal disease on hemodialysis (Acute) Volume overload (Acute) SOB (shortness of breath) Pulmonary vascular congestion (Acute) ESRD on dialysis (Acute) CKD (chronic kidney disease) (Acute) Tobacco abuse (Acute) Hypertension (Chronic) CKD (chronic kidney disease), stage IV Gastritis CHF (congestive heart failure) Acute respiratory failure with hypoxia Renal failure (Acute) Severe calcific aortic valve stenosis Peritoneal dialysis catheter in situ since removed Tobacco use ESRD (end stage renal disease) on dialysis (Acute) M/W/F > [facility] in [place] Hyperlipidemia BPH (benign prostatic hyperplasia) Diabetes mellitus, type 2 NIDDM Chronic anemia Medical History (Updated 11/27/24 @ 11:51 by Ericka Lua MD) Open wound of right lower leg Open wound of right heel Non-ST elevation NM (NSTEMI) Traumatic open wound of left lower leg Gram-positive bacteremia Severe sepsis Bacteremia due to Enterococcus Acute hyponatremia Elevated troponin I level Dialysis AV fistula malfunction Encounter for pre-operative examination Clostridioides difficile diarrhea SBO (small bowel obstruction) SBO (small bowel obstruction) Epigastric abdominal pain CHF (congestive heart failure) DVT prophylaxis CKD (chronic kidney disease) stage 5, GFR less than 15 ml/min follows with Dr. Jay Angina pectoris Encounter for pre-operative examination Diabetic foot ulcer Dialysis patient Tobacco abuse PAD (peripheral artery disease) CHF (congestive heart failure) AV fistula left wrist Osteoarthritis Anxiety and depression Hypertension Surgical History (Updated 11/25/24 @ 13:20 by Charles Dietz MD) S/P cholecystectomy S/P TAVR (transcatheter aortic valve replacement) SBO (small bowel obstruction) with surgical intervention History of esophagogastroduodenoscopy (EGD) History of colonoscopy History of cholecystectomy History of tooth extraction History of cataract surgery RT/LEFT History of procedure for peripheral vascular disease LEFT LEG (STENT PLACED) Cardiac murmur no cardio Family History Brother Cancer Social History Smoking Status: Current every day smoker Tobacco Type: Cigarettes Age Started Using Tobacco: 16; packs per day: 0.5; Cigarettes Per Day: 10; Second Hand Exposure: No; Do You Dip or Chew Tobacco: No; Hx Alcohol Use: No Hx Substance Use: No Preferred Language: Faroese Communication Ability: Effective Visual Impairment: No Limitations Hearing Ability: Hard of Hearing Pulp Beater Required: No Beliefs That Will Affect Care: None marital status: Single Current Living Situation: Alone Current Living Situation Comment: daughter helps with cooking and cleaning current occupational status: retired 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 Feels Safe at Home: Yes Diet: regular during the past year weight has: remained stable Assistive Devices: Walker Review of Systems Review of Systems: Constitutional: No fever, sweats or chills Eyes: No diplopia, no worsening or blurred vision ENT: normal hearing, + burning sensation in throat, sore tongue, + pain with swallowing Respiratory: + Exertional dyspnea, + cough, occasional sputum, still smoking half pack per day, no dyspnea at rest Cardiovascular: As per HPI, exertional chest pain, no tightness or palpitations Abdomen: No pain, nausea, vomiting, diarrhea or constipation : Patient reports make small amount of urine with dialysis Musculoskeletal: No joint pain, calf pain, swelling Neurologic: No weakness, numbness/tingling, or balance problems Psychiatric: No anxiety or depression Skin: No rash or itch Physical Exam Physical Exam: General: awake, alert, no apparent distress, elderly white male Head: Normocephalic, atraumatic ENT: PERRL, EOMI, + white exudate on tongue, mucous membranes dry Chest: Coarse breath sounds, diminshed breath sounds at left base, on 2 L via NC O2 sats 94%, + expiratory wheeze, no rales or rhonchi Cardiac: Regular rate and rhythm, + PVCs, + faint murmur, no JVD, normal p eripheral pulses, good capillary refill, chest pain is not reproducible with palpation Abdominal: NABS x 4 quadrants, soft, nondistended, nontender to palpation, no rebound or guarding Extremities: Chronic skin changes, normal inspection, no peripheral edema or erythema, calfs nontender to palpation, onychomycosis Psych: Normal mood and affect Neuro: AAO x 3, strength intact bilaterally and rated 5/5, no motor deficits, speech is clear, no peripheral sensory deficits Results & Data Results & Data Vital Signs (Past 12 Hours) Vital Signs Temp Pulse Pulse Resp BP BP Pulse Ox 12/06/24 12:10 66 12/06/24 10:36 77 18 109/64 94 12/06/24 10:36 12/06/24 10:36 12/06/24 10:36 36.6 C 77 18 109/64 94 12/06/24 10:35 77 18 94 O2 Del Method 12/06/24 12:10 12/06/24 10:36 Room Air 12/06/24 10:36 Room Air 12/06/24 10:36 Room Air 12/06/24 10:36 Room Air 12/06/24 10:35 Room Air Laboratory Results 12/06/24 10:44 WBC 10.21 RBC 3.36 L Hgb 10.2 L Hct 32.7 L MCV 97.3 MCH 30.4 MCHC 31.2 L RDW Std Deviation 60.0 H RDW Coeff of Danny 17.2 H Plt Count 158 MPV 12.5 H Immature Gran % (Auto) 1.2 Neut % (Auto) 76.4 Lymph % (Auto) 11.6 Hand % (Auto) 9.7 Eos % (Auto) 0.8 Baso % (Auto) 0.3 Neut # (Auto) 7.81 H Lymph # (Auto) 1.18 L Hand # (Auto) 0.99 H Eos # (Auto) 0.08 Baso # (Auto) 0.03 Immature Gran # (Auto) 0.12 Sodium 137 Potassium 3.8 Chloride 95 L Carbon Dioxide 33 H Anion Gap 9 BUN 33 H Creatinine 3.38 H Est Cr Clr Drug Dosing 17.1 eGFR 17.53 BUN/Creatinine Ratio 9.8 L Glucose 333 H* Calcium 10.5 H Total Bilirubin 1.0 AST 29 ALT 20 Alkaline Phosphatase 72 Troponin I High Sens 115.0 H* B-Natriuretic Peptide > 4700 H Total Protein 6.8 Albumin 3.7 Globulin 3.1 Albumin/Globulin Ratio 1.2 Lipase 34 Diagnostic Findings Chest X-Ray 12/06/24 10:35 EXAM: Radiograph of the Chest 1 View INDICATION: Dyspnea. TECHNIQUE: Frontal view of the chest. COMPARISON: 11/26/2024 FINDINGS: Lungs and pleural spaces: Stable diffuse interstitial and airspace infiltrates and small pleural effusions left greater than right. No pneumothorax. Heart: Stable large cardiac shadow with aortic valve prosthetic stents. Mediastinum: Normal contour. Bones/joints: No fracture, erosion or dislocation. Soft tissues: No abnormality noted. No radiopaque foreign body noted. Upper abdomen: No abnormality noted. IMPRESSION: Stable diffuse interstitial and airspace infiltrates and small pleural effusions left greater than right. ACT 112: Negative or not required by law. Electronically signed by Breanne Camarillo 12-06-2024 11:22 AM Code Status & VTE Plan Code Status DNR/DNI - Discussed with the patient at bedside Supervising Physician Co-Signing Physician Notes Patient seen and examined independently. Discussed with over freighter. Patient is a 79-year-old male with past medical history of ESRD, COPD who presents to the hospital with shortness of breath. He was recently hospitalized for parainfluenza infection and was discharged on oral antibiotics. He reports that he felt better after discharge for couple of days but he started to feel shortness of breath on exertion. Chest x-ray showed significant pulmonary edema along with elevated BNP. On examination, he has minimal wheeze. Suspect volume overload to be the reason for the increasing shortness of breath. Will consult nephrology for dialysis. Will continue nebulized steroid, nebulized LABA, DuoNeb and oral steroids. Denies any fever or chills. I have reviewed the advanced practitioner's documentation, and I agree with, and take responsibility for the plan of care I spent a total of 30 minutes coordinating, documenting, and providing care for this patient excluding time spent in the performance of separately billed services. All of the aforementioned completed while collaborating with the assigned advanced practitioner for a full treatment plan (4) Diabetes mellitus, type 2 Diabetes mellitus complication status: without complication Diabetes mellitus terminal worker insulin use: without skilled nursing use Qualified Code(s): E11.9 - Type 2 diabetes mellitus without complications
[2024-12-06] MEDS: ASPIRIN CHEW 324 MG PO STA (13:03)
[2024-12-06] MEDS: predniSONE 20 MG TAB PO SCH (14:19)
[2024-12-06] MEDS ORDERED: CARBOHYDRATES FOR HYPOGLYCEMIA PO PRN (14:59)
[2024-12-06] MEDS ORDERED: ONDANSETRON INJ 2 MG/ML 2 ML VIAL IV PRN (14:59)
[2024-12-06] MEDS ORDERED: DEXTROSE 50% 50 ML SYRINGE IV PRN (14:59)
[2024-12-06] MEDS ORDERED: GLUCOSE 40% GEL 15 GM TUBE PO PRN (14:59)
[2024-12-06] MEDS ORDERED: ACETAMINOPHEN 325 MG TAB PO PRN (14:59)
[2024-12-06] MEDS ORDERED: GLUCAGON FOR INJ 1 MG VIAL SQ PRN (14:59)
[2024-12-06] MEDS ORDERED: GLUCOSE 10 TAB/TUBE PO PRN (14:59)
[2024-12-06] MEDS: INSULIN ASPART PER UNIT CHARGE SC SCH (18:10)
[2024-12-06] MEDS: NYSTATIN SUSP 500,000 U/5 ML UDC PO SCH (18:11)
[2024-12-06] MEDS: BUDESONIDE 0.25 MG/2 ML VIAL (PULMICORT) NEB SCH (20:10)
[2024-12-06] MEDS: ALBUT/IPRATROP 3MG/0.5MG NEB 3 ML VIAL NEB SCH (20:10)
[2024-12-06] MEDS: FORMOTEROL 20 MCG/2 ML VIAL NEB SCH (20:10)
[2024-12-06] MEDS: CITALOPRAM 20 MG TAB PO SCH (20:38)
[2024-12-06] MEDS: CHOLECALCIFEROL 25 MCG (1000 UNITS) TAB PO SCH (20:38)
[2024-12-06] MEDS: HEPARIN SOD 5,000 UNIT/0.5 ML VIAL SQ SCH (20:39)
[2024-12-06] MEDS: XPHOZAH PO SCH (20:39)
[2024-12-06] MEDS: TAMSULOSIN HCL 0.4 MG CAP PO SCH (20:41)
[2024-12-06] MEDS: FINASTERIDE 5 MG TAB PO SCH (20:52)
[2024-12-07] MEDS: guaiFENesin/DEXTROM SYRUP 100MG/10MG 5ML UDC PO PRN (00:55)
[2024-12-07 04:20] LABS: Hematocrit (blood only) 30.9 % (42.0-52.0); Hemoglobin 9.6 g/dl (14.0-18.0); Mean Corpuscular Hemoglobin 29.9 pg (25.0-34.0); Mean Corpuscular Hgb Conc 31.1 g/dL (32.0-36.0); Mean Corpuscular Volume 96.3 fL (80.0-100.0); Mean Platelet Volume 12.2 fL (9.4-12.4); Platelet Count 140 K/uL (130-400); RDW Coefficient of Variation 16.8 % (11.5-14.5); RDW Standard Deviation 58.6 fL (36.4-46.3); Red Blood Count 3.21 M/uL (4.70-6.10); White Blood Count 10.63 K/ul (4.8-10.8)
[2024-12-07 04:36] LABS: BUN Creatinine Ratio 12.1 (10-20); Calcium 10.2 mg/dl (8.6-10.3); Creatinine Clr Calc Pharmacy 13.7 ml/min; Potassium 3.9 mmol/L (3.5-5.1)
[2024-12-07] MEDS: PANTOprazole 40 MG TAB PO SCH (07:53)
[2024-12-07] MEDS: amLODIPine BESYLATE 5 MG TAB PO SCH (07:53)
[2024-12-07] MEDS: ATORVASTATIN 40 MG TAB PO SCH (07:53)
[2024-12-07] MEDS: ASPIRIN 81 MG ECTAB PO SCH (07:53)
--- NOTE | 2024-12-07 08:32 | Nephrology Consultation ---
Date of Consultation December 07, 2024 Assessment & Plan (1) Acute respiratory failure: he has had 3 admissions for respiratory problems in 3 months after literally going for years without these issues (despite his COPD and active tobacco abuse). we have whittled his target weight at HD by 5% in this timeframe and his breathing problems persist/are worsening. could be leftover from recent virus/CAP -consider CT chest -cardiology evaluation as below (2) End-stage renal disease on hemodialysis: compliant w/ his txs and w/ TW down 4 kg (5% TBW) compared to where it was 3 mos ago and he's definitely not eating less -continue to probe TW -no indication for urgent HD today -routine HD tomorrow > orders in following OP rx (3) Aortic valve stenosis determined by imaging: TTE earlier this month suggests possible moderate prosthesis stenosis >> suggest cardi[place] c[place] [facility]; question is whether change in prosthesis function (if that's what elevated velocities mean here) could be impacting his breathing/causing HF sx (4) Open wound of right lower leg: he has had bacteremia x 2 in 2022 and 2023 >> low threshold to check blood cultures particularly if abtx do come under consideration >>pls have wound team evaluate if not already done History of Present Illness Reason for Consultation: HD MWF Requesting Physician: Dr Lancaster Attending Physician: Jorge Lancaster MD History of Present Illness 79 y/o M whom I'm asked to see for ESRD MWF HD was admitted yesterday for worsening dyspnea in the setting of COPD exacerbation w/ concern for pulmonary edema. PMH includes ESRD on MWF HD via AV[facility] at [facility], HFpEF (EF 50-55%, TTE 2024), status post TAVR, CAD, COPD with ongoing tobacco abuse, hypertension, hyperlipidemia, DM2 diet-controlled, h/o bacteremia x 2 > enterococcus fall 2022 and streptococcal bacteremia April 2024, h/o C diff colitis, chronic foot wounds > most recently R great toe, at least mild cognitive impairment/dementia, chronic ambulatoy dysfunction/ walker dependent. he follows with [facility] q2 weeks and was to see them back early November but has not been there since 10/23. He lives alone s/ paid caregivers most weekdays; his daughter is his POA, appts are arranged through her. He has had challenges getting to needed OP appts at times. He had a TAVR placed in February 2022 at [facility]; he went to a 2 wk f/u appt but has since then not seen an OP director home to my knowledge. He switched insurance coverage 18 mos ago approximately and now needs to establish with [facility] not [facility] for this reason. he has unfortunately not kept appointments set up for him for [facility] (at least once). He is adherent w/ dialysis treatments; lots of challenges in forgetting to take his pills though. This is his 3rd admission here since September for acute hypoxic respiratory failure: September for COPD excerbation, mid November for parainfluenza/possible CAP and plm edema; late November ?COPD excerbation/prolonged bronchitis/ ? volume overload. After his recent hospital stay, his TW was lowered by 2 KG from 73 > 71 kg; he has struggled to hit this since d/c but did leave on 12/05 at 71/3 kg. Despite these measures, he reported cough or dyspnea including exertional dyspnea at all 3 OP HD txs for the past week per seal delivery vehicle team technician notes. In July and August and for months before that, his TW was 75 kg w/ no acute breathing issues. he has challenges w/ orthostatic hypotension at times. he was started on steroids and inahlers/nebs. he had completed abtx recently after prior hospital stay so those were deferred for now. pt's breathing still short, serafin if he changes position in the bed. stable chronic LT cough. no edema, no abd or chest pain currently. no falls or decreased appetite. he is anuric. Allergies Allergy/AdvReac Type Severity Reaction Status Date / Time No Known Allergies Allergy Verified 10/23/24 13:05 Home Medications Medication Instructions Recorded Confirmed Type atorvastatin 40 mg tablet 40 mg PO QAM 07/31/19 12/06/24 History cholecalciferol (vitamin D3) 25 1,000 unit PO PM 07/31/19 12/06/24 History mcg (1,000 unit) tablet (Vitamin D3) finasteride 5 mg tablet 5 mg PO HS 07/31/19 12/06/24 History aspirin 81 mg tablet,delayed 81 mg PO QAM 01/06/20 12/06/24 History release albuterol sulfate 90 mcg/actuation 2 puff inhalation QID PRN Wheezing 04/09/24 12/06/24 History aerosol inhaler fluticasone furoate 200 1 inh inhalation DAILY PRN 04/09/24 12/06/24 History mcg-vilanterol 25 mcg/dose Shortness Of Breath Or Wheezing inhalation powder (Breo Ellipta) pantoprazole 20 mg tablet,delayed 20 mg PO QAM 04/09/24 12/06/24 History release tamsulosin 0.4 mg capsule 0.4 mg PO HS 08/21/24 12/06/24 History amlodipine 5 mg tablet 5 mg PO QAM 09/24/24 12/06/24 History citalopram 20 mg tablet 20 mg PO PM 09/24/24 12/06/24 History gabapentin 100 mg capsule 100 mg PO DAILY PRN NEUROPATHY 09/24/24 12/06/24 History sucroferric oxyhydroxide 500 mg 500 mg PO TIDM 09/24/24 12/06/24 History chewable tablet (Velphoro) tenapanor 30 mg tablet (Xphozah) 30 mg PO BID 09/24/24 12/06/24 History linagliptin 5 mg tablet (Tradjenta) 5 mg PO DAILY 11/24/24 12/06/24 History ipratropium 0.5 mg-albuterol 3 mg 3 ml NEB Q4H PRN shortness of 11/27/24 12/06/24 Rx (2.5 mg base)/3 mL nebulization breath or wheezing #90 mL soln Patient History Medical History Open wound of right lower leg Open wound of right heel Non-ST elevation IA (NSTEMI) Traumatic open wound of left lower leg Gram-positive bacteremia Severe sepsis Bacteremia due to Enterococcus Acute hyponatremia Elevated troponin I level Dialysis AV fistula malfunction Encounter for pre-operative examination Clostridioides difficile diarrhea SBO (small bowel obstruction) SBO (small bowel obstruction) Epigastric abdominal pain CHF (congestive heart failure) DVT prophylaxis CKD (chronic kidney disease) stage 5, GFR less than 15 ml/min follows with Dr. Jay Angina pectoris Encounter for pre-operative examination Diabetic foot ulcer Dialysis patient Tobacco abuse PAD (peripheral artery disease) CHF (congestive heart failure) AV fistula left wrist Osteoarthritis Anxiety and depression Hypertension Surgical History S/P cholecystectomy S/P TAVR (transcatheter aortic valve replacement) (2021) SBO (small bowel obstruction) with surgical intervention History of esophagogastroduodenoscopy (EGD) History of colonoscopy History of cholecystectomy History of tooth extraction History of cataract surgery RT/LEFT History of procedure for peripheral vascular disease LEFT LEG (STENT PLACED) Cardiac murmur no cardio Family History Brother Cancer Social History Smoking Status: Current every day smoker Tobacco Type: Cigarettes Age Started Using Tobacco: 16; packs per day: 0.5; Cigarettes Per Day: 10; Second Hand Exposure: No; Do You Dip or Chew Tobacco: No; Tobacco Cessation Education Requested by Patient: No Hx Alcohol Use: Yes Alcohol type: beer Hx Substance Use: No Preferred Language: Upper Sorbian Communication Ability: Effective Visual Impairment: No Limitations Hearing Ability: Hard of Hearing Full Stack Java Developer Required: No Beliefs That Will Affect Care: None marital status: Single Current Living Situation: Alone Current Living Situation Comment: daughter helps with cooking and cleaning current occupational status: retired 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 Other Information That Helps Us Care for You: No Feels Safe at Home: Yes Diet: regular during the past year weight has: remained stable Assistive Devices: Nebulizer and Walker Review of Systems 2 Review of Systems: All systems reviewed & are unremarkable except as noted in HPI & below Physical Exam 2 Constitutional: well developed, + thin, + frail appearing and cooperative; no acute distress Eyes: EOM intact bilaterally ENMT: Ears: no external ear abnormality Nose: no external nose abnormality Mouth: + dry oral mucous membranes Neck: no nuchal rigidity Respiratory: normal respiratory effort Auscultation: + diminished lung sounds and + wheezes (diffusely) Cardiovascular: Rate/Rhythm: regular rate and regular rhythm Heart Sounds: + murmur Extremities: + AV fistula; no edema Gastrointestinal (Abdomen): Inspection/Auscultation: normal bowel sounds P ercussion/Palpation: abdomen soft; abdomen nontender Musculoskeletal: Extremities: strength 5/5 throughout Skin: no rashes, warm and dry Neurologic: albarran, fluent speech, no tremor Results & Data Vital Signs (Past 12 Hours) Vital Signs Temp Pulse Pulse Resp BP Pulse Ox O2 Del Method 12/07/24 07:43 36.5 C 80 18 146/73 H 97 Nasal Cannula 12/07/24 07:41 Nasal Cannula 12/07/24 07:41 77 15 89 L Room Air 12/07/24 07:02 85 12/07/24 03:11 36.6 C 74 16 132/69 99 Nasal Cannula 12/06/24 23:25 36.5 C 74 16 130/64 98 Room Air 12/06/24 23:24 78 12/06/24 23:12 Nasal Cannula O2 Flow Rate FiO2 12/07/24 07:43 12/07/24 07:41 2 12/07/24 07:41 21 12/07/24 07:02 12/07/24 03:11 2 12/06/24 23:25 12/06/24 23:24 12/06/24 23:12 2 Laboratory Results 12/07/24 04:06 12/07/24 04:06 Diagnostic Findings CXR 12/06 (images personally reviewed; agree w/ report) Stable diffuse interstitial and airspace infiltrates and small pleural effusions left greater than right. TTE 11/2024 mod [facility], EF 50% TAVR w/ increased aortic valve velocities possibly moderate prosthesis stenosis
--- NOTE | 2024-12-07 08:49 | Electrocardiogram Report ---
Test Reason : Blood Pressure : */* mmHG Vent. Rate : 75 BPM Atrial Rate : 75 BPM P-R Int : 174 ms QRS Dur : 152 ms QT Int : 452 ms P-R-T Axes : 71 -60 137 degrees QTcB Int : 504 ms Normal sinus rhythm Right bundle branch block Left anterior fascicular block Left ventricular hypertrophy with repolarization abnormality Abnormal ECG When compared with ECG of 25-Nov-2024 05:36, No significant change Confirmed by Royce Blunt ([id number]) on 12/07/2024 8:49:08 AM Referred By: REFERRED SELF Confirmed By: Royce Blunt
--- NOTE | 2024-12-07 08:50 | Electrocardiogram Report ---
Test Reason : Blood Pressure : */* mmHG Vent. Rate : 77 BPM Atrial Rate : 77 BPM P-R Int : 190 ms QRS Dur : 152 ms QT Int : 442 ms P-R-T Axes : 40 -63 109 degrees QTcB Int : 500 ms Poor data quality, interpretation may be adversely affected Normal sinus rhythm Right atrial enlargement Right bundle branch block Left anterior fascicular block Left ventricular hypertrophy with repolarization abnormality Abnormal ECG When compared with ECG of 06-Dec-2024 10:30, No significant change Confirmed by Royce Blunt ([id number]) on 12/07/2024 8:49:50 AM Referred By: REFERRED SELF Confirmed By: Royce Blunt
[2024-12-07] MEDS ORDERED: VANCOMYCIN CONSULT ACTIVE PRN (10:45)
[2024-12-07] MEDS ORDERED: VANCOMYCIN HCL 2,000 MG in SODIUM CHLORIDE 0.9% 500 ML IV ONE (10:45)
[2024-12-07] MEDS: PIPERACILLIN/TAZOBACTAM 4.5 GM/100 ML BAG IV ONE (11:19)
[2024-12-07] MEDS: VANCOMYCIN HCL 1,750 MG in SODIUM CHLORIDE 0.9% 500 ML IV ONE (11:53)
--- NOTE | 2024-12-07 13:08 | Hospitalist Progress Note ---
Date of Service December 07, 2024 Assessment & Plan (1) SOB (shortness of breath): (2) Pulmonary vascular congestion: (3) ESRD (end stage renal disease) on dialysis: (4) Diabetes mellitus, type 2: (5) Hyperlipidemia: (6) CKD (chronic kidney disease): Plan Acute Pulmonary Edema-in setting of ESRD Hx of Parainfluenza 4 viral Upper resp Infection COPD exacerbation with ? prolonged bronchitis -suspect hypoxia/SOB multifactorial in setting of COPD exac, volume overload iso ESRD, CHF exacerbation, recent upper respiratory viral infection, Prolonged bronchitis - resp biofire +ve for parainfluenza 4 during recent hospital stay - Prednisone 40 mg daily and will require long taper over at least 2 weeks. Cont budesonide and fomoterol inh BID, and duonebs Q6H, incentive spirometry, flutter Will obtain blood culture given his previous history of bacteremia. Started on Zosyn and vancomycin. Nephrology recommends cardiology evaluation given history of moderate prosthetic stenosis. Cardiology consulted; appreciate recommendation Oral candidiasis - Nystatin swish and swallow - likely due to neb tx and not rinsing mouth out afterwards ESRD on dialysis: -CXR as above -MWF schedule -nephrology consulted, appreciate recs -continue dialysis Myocardial injury: -appears to have chronic elevated troponins - Recent ECHO w/ EF of 50-55%, LV wall motion nl from last admission. Hypertension -continue amlodipine Diabetes mellitus, type II - ISS with accuchecks achs - A1C 6.2 in September 2024 DVT prophylaxis: Heparin subcu Lines: PIV x 1 FEN/GI: DNR/DNI PT/OT, CM to assist with DC planning. Time spent evaluating patient, direct bedside care, chart review, placing orders, interpretation of diagnostic studies, discussion with consultants, patient, and family members, as well as other required patient management activities is 50 minutes Please note the above document was generated using voice recognition software. It may contain grammatical, syntax or spelling errors. Any formal questions or concerns about the content, text or information contained within the body of this dictation should be directly addressed to the provider for clarification Admission and Anticipated Discharge Date Admission Date: December 06, 2024 Subjective Patient reports that his shortness of breath has improved compared to yesterday Afebrile overnight and saturating well on room air. Review of Systems Review of Systems: All systems reviewed & are unremarkable except as noted in Subjective Physical Exam Physical Exam: General: awake, alert, no apparent distress, elderly white male Head: Normocephalic, atraumatic ENT: PERRL, EOMI, + white exudate on tongue, mucous membranes dry Chest: Bilateral basal crackles present. Cardiac: Regular rate and rhythm, + PVCs, + faint murmur, no JVD, normal peripheral pulses, good capillary refill, chest pain is not reproducible with palpation Abdominal: NABS x 4 quadrants, soft, nondistended, nontender to palpation, no rebound or guarding Extremities: Chronic skin changes, normal inspection, no peripheral edema or erythema, calfs nontender to palpation, onychomycosis Psych: Normal mood and affect Neuro: AAO x 3, strength intact bilaterally and rated 5/5, no motor deficits, speech is clear, no peripheral sensory deficits Results & Data Results & Data Vital Signs (Past 12 Hours) Vital Signs Temp Pulse Pulse Resp BP Pulse Ox O2 Del Method 12/07/24 11:51 36.7 C 80 18 118/70 96 Nasal Cannula 12/07/24 07:43 36.5 C 80 18 146/73 H 97 Nasal Cannula 12/07/24 07:41 Nasal Cannula 12/07/24 07:41 77 15 89 L Room Air 12/07/24 07:02 85 12/07/24 03:11 36.6 C 74 16 132/69 99 Nasal Cannula O2 Flow Rate FiO2 12/07/24 11:51 12/07/24 07:43 12/07/24 07:41 2 12/07/24 07:41 21 12/07/24 07:02 12/07/24 03:11 2 (4) Diabetes mellitus, type 2 Diabetes mellitus complication status: without complication Diabetes mellitus terminal operations supervisor insulin use: without senior living use Qualified Code(s): E11.9 - Type 2 diabetes mellitus without complications
--- NOTE | 2024-12-07 13:47 | Pharmacy Report ---
Pharmacy PK ABX Note - Date of Service December 07, 2024 - Assessment and Plan Assessment 79 year old M receiving vancomycin and zosyn empirically. Blood cultures pending. ESRD on iHD MWF. HD orders for 2/3. Day #1 of antimicrobial therapy. Plan Vancomycin * Loading dose: 1750 mg IV x 1 * Given iHD, will plan to dose vancomycin by levels. * Random level tomorrow AM prior to dialysis to guide further dosing. Pharmacy will continue to follow and will adjust dose/frequency as necessary. Thank you.
--- NOTE | 2024-12-07 18:02 | Cardiology Consultation ---
Date of Consultation December 07, 2024 Assessment & Plan (1) Shortness of breath: (2) S/P TAVR (transcatheter aortic valve replacement): (3) Aortic valve stenosis determined by imaging: (4) Bronchospasm: (5) COPD (chronic obstructive pulmonary disease): (6) ESRD (end stage renal disease) on dialysis: (7) Chronic anemia: Plan 79-year-old man with multiple comorbidities who has had markedly increased dyspnea over the past month. Suspect his dyspnea is multifactorial, at baseline he has a moderate anemia and COPD and he intermittently develops bronchospasm. Although his TAVR demonstrates moderate stenosis, this would be more likely to cause insidious rather than abrupt onset of symptoms and does not seem severe enough to be causing symptoms at rest (rare with even severe aortic stenosis). The stenotic bioprosthesis may play some role, particularly during exertion, but difficult to discern whether this is a minor or major component to his overall symptoms. Would recommend focusing on more immediately remediable symptoms such as bronchospasm, maintaining euvolemia with hemodialysis (no overt evidence of heart failure), and ensuring adequate supplemental oxygenation. Although a second TAVR is feasible, his status would be best optimized before considering this and a more thorough evaluation to ensure a repeat procedure would benefit him symptomatically is warranted. Other than supportive care for his comorbidities, no specific immediate cardiac recommendations. He does have an upcoming cardiology consult with Dr. Perez on 12/11/2024, would recommend that he follow-up with this and consider further outpa tient evaluation of his valve to better determine whether repeat TAVR would ultimately be an appropriate option. Will continue to follow while he is hospitalized. History of Present Illness Reason for Consultation: SOB, moderate prostheis stenosis Requesting Physician: Jorge Lancaster MD Attending Physician: Jorge Lancaster MD History of Present Illness 79-year-old man with end-stage renal disease (hemodialysis), COPD, status post TAVR 2021, admitted with exertional chest pain and dyspnea, noted on recent echo to have moderate stenosis of his bioprosthetic aortic valve. After initial placement of his transcatheter aortic valve (TAVR) in 2021, he felt marked improvement in his previous dyspnea on exertion and was able to perform routine activities without difficulty. He notes that this remained unchanged until about a month ago, prior to that he had no substantial decline in his overall exercise tolerance and no routine chest discomfort. For the past month, despite being on twice a day nebulizers he had noted some increase in wheezing, decline in ability to perform activities, and intermittent exertional chest discomfort which lasted a few minutes at a time and resolved with rest. His weight was unchanged and he notes no orthopnea, PND, or leg edema. He was admitted late in November with the symptoms, felt to have mild volume overload, parainfluenza 4 viral upper respiratory tract infection, and increased bronchospasm. Echocardiogram obtained 11/24/2024 showed EF 50-55% with a COREY TAVR which showed restricted leaflet mobility and evidence of moderate prosthesis stenosis (peak aortic velocity 3.5 m/s). He was treated with prednisone, Augmentin, doxycycline, but became progressively more dyspneic for the 3 days prior to admission and he returned for repeat evaluation. ECG showed sinus rhythm with right bundle branch block, left intrafascicular block, LVH with repolarization abnormality and was unchanged compared with late November ECG. Chest x-ray showed stable diffuse interstitial and airspace infiltrates and small pleural effusions. Troponin was mildly elevated but flat ([id number] range). Telemetry showed sinus rhythm at 70-80 bpm with occasional PACs. At the time of my evaluation this morning, he noted that his breathing was slightly better and he denied any dyspnea or chest pain at rest. He had not attempted to ambulate more than a short distance. Allergies Allergy/AdvReac Type Severity Reaction Status Date / Time No Known Allergies Allergy Verified 10/23/24 13:05 Home Medications Medication Instructions Recorded Confirmed Type atorvastatin 40 mg tablet 40 mg PO QAM 07/31/19 12/06/24 History cholecalciferol (vitamin D3) 25 1,000 unit PO PM 07/31/19 12/06/24 History mcg (1,000 unit) tablet (Vitamin D3) finasteride 5 mg tablet 5 mg PO HS 07/31/19 12/06/24 History aspirin 81 mg tablet,delayed 81 mg PO QAM 01/06/20 12/06/24 History release albuterol sulfate 90 mcg/actuation 2 puff inhalation QID PRN Wheezing 04/09/24 12/06/24 History aerosol inhaler fluticasone furoate 200 1 inh inhalation DAILY PRN 04/09/24 12/06/24 History mcg-vilanterol 25 mcg/dose Shortness Of Breath Or Wheezing inhalation powder (Breo Ellipta) pantoprazole 20 mg tablet,delayed 20 mg PO QAM 04/09/24 12/06/24 History release tamsulosin 0.4 mg capsule 0.4 mg PO HS 08/21/24 12/06/24 History amlodipine 5 mg tablet 5 mg PO QAM 09/24/24 12/06/24 History citalopram 20 mg tablet 20 mg PO PM 09/24/24 12/06/24 History gabapentin 100 mg capsule 100 mg PO DAILY PRN NEUROPATHY 09/24/24 12/06/24 History sucroferric oxyhydroxide 500 mg 500 mg PO TIDM 09/24/24 12/06/24 History chewable tablet (Velphoro) tenapanor 30 mg tablet (Xphozah) 30 mg PO BID 09/24/24 12/06/24 History linagliptin 5 mg tablet (Tradjenta) 5 mg PO DAILY 11/24/24 12/06/24 History ipratropium 0.5 mg-albuterol 3 mg 3 ml NEB Q4H PRN shortness of 11/27/24 12/06/24 Rx (2.5 mg base)/3 mL nebulization breath or wheezing #90 mL soln Patient History Medical History (Updated 12/07/24 @ 17:53 by Royce Blunt MD) Open wound of right lower leg Open wound of right heel Non-ST elevation DE (NSTEMI) Traumatic open wound of left lower leg Gram-positive bacteremia Severe sepsis Bacteremia due to Enterococcus Acute hyponatremia Elevated troponin I level Dialysis AV fistula malfunction Encounter for pre-operative examination Clostridioides difficile diarrhea SBO (small bowel obstruction) SBO (small bowel obstruction) Epigastric abdominal pain CHF (congestive heart failure) DVT prophylaxis CKD (chronic kidney disease) stage 5, GFR less than 15 ml/min follows with Dr. Jay Angina pectoris Encounter for pre-operative examination Diabetic foot ulcer Dialysis patient Tobacco abuse PAD (peripheral artery disease) CHF (congestive heart failure) AV fistula left wrist Osteoarthritis Anxiety and depression Hypertension Surgical History (Updated 12/07/24 @ 17:53 by Royce Blunt MD) S/P cholecystectomy S/P TAVR (transcatheter aortic valve replacement) (2021) SBO (small bowel obstruction) with surgical intervention History of esophagogastroduodenoscopy (EGD) History of colonoscopy History of cholecystectomy History of tooth extraction History of cataract surgery RT/LEFT History of procedure for peripheral vascular disease LEFT LEG (STENT PLACED) Cardiac murmur no cardio Family History Brother Cancer Social History Smoking Status: Current every day smoker Tobacco Type: Cigarettes Age Started Using Tobacco: 16; packs per day: 0.5; Cigarettes Per Day: 10; Second Hand Exposure: No; Do You Dip or Chew Tobacco: No; Tobacco Cessation Education Requested by Patient: No Hx Alcohol Use: Yes Alcohol type: beer Hx Substance Use: No Preferred Language: [place] Communication Ability: Effective Visual Impairment: No Limitations Hearing Ability: Hard of Hearing Director Telemetry Required: No Beliefs That Will Affect Care: None marital status: Single Current Living Situation: Alone Current Living Situation Comment: daughter helps with cooking and cleaning current occupational status: retired 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 Other Information That Helps Us Care for You: No Feels Safe at Home: Yes Diet: regular during the past year weight has: remained stable Assistive Devices: Nebulizer and Walker Physical Exam Physical Exam: Chronically ill appearing elderly white male in no acute distress. Afebrile. Normotensive. Pulse 78 bpm and regular. Respirations 18 and unlabored. Skin: no ecchymoses or generalized lesions. HEENT: unremarkable. Neck: JVP shows increased respiratory variation but is not obviously elevated. Lungs: Moderately decreased breath sounds with occasional expiratory wheeze. No accessory muscle use. Cardiac: regular rhythm, normal S1, aortic closure sound seems intact and fairly brisk, but difficult to exclude the possibility this is transmitted pulmonic closure, 2/6 crescendo/decrescendo systolic murmur at the base, no diastolic murmur.. Abdomen: benign. Extremities: no edema, pulses intact. Neurologic: normal affect and conversation, nonfocal. Results & Data Laboratory Results WBC 3.2, hemoglobin 9.6, normal platelet count. Sodium 135, potassium 3.9, BUN 51, creatinine 4.22. Magnesium 2.0. Troponins as noted. BNP greater than 4700. Diagnostic Findings Chest x-ray and ECG as noted in HPI. Echo as noted in HPI. PG Care Time/CCT Total # of Minutes Spent Total Time Spent with Patient: Total time spent is greater than 50% in coordination of care (as documented) at patient's floor/unit and/or counseling patient: Coding Level of Care Code 55842 IN/OBS CONSULT LVL 4,60M Diagnoses Shortness of breath R06.02 S/P TAVR (transcatheter aortic valve replacement) Z95.2 Aortic valve stenosis determined by imaging I35.0 Bronchospasm J98.01 COPD (chronic obstructive pulmonary disease) J44.9 ESRD (end stage renal disease) on dialysis N18.6; Z99.2 Chronic anemia D64.9
[2024-12-07] MEDS: BUDESONIDE 0.25 MG/2 ML VIAL (PULMICORT) NEB SCH (19:57)
[2024-12-07 20:32] LABS: Adenovirus F 40/41 PCR Not Detected (NotDetected); Astrovirus PCR Not Detected (NotDetected); Campylobacter PCR Not Detected (NotDetected); Cryptosporidium PCR Not Detected (NotDetected); Cyclospora cayetanensis PCR Not Detected (NotDetected); Entamoeba histolytica PCR Not Detected (NotDetected); Enteroaggregative E.coli(EAEC) Not Detected (NotDetected); Enteropathogenic E.coli (EPEC) Not Detected (NotDetected); Enterotoxigenic E.coli (ETEC) Not Detected (NotDetected); Giardia lamblia PCR Not Detected (NotDetected); Norovirus GI/GII PCR Not Detected (NotDetected); Plesiomonas shigelloides PCR Not Detected (NotDetected); Rotavirus A PCR Not Detected (NotDetected); Salmonella PCR Not Detected (NotDetected); Sapovirus PCR Not Detected (NotDetected); Shiga-like Toxin E.coli (STEC) Not Detected (NotDetected); Shigella/Enteroinvasive E.coli Not Detected (NotDetected); Vibrio cholerae PCR Not Detected (NotDetected); Vibrio species PCR Not Detected (NotDetected); Yersinia enterocolitica PCR Not Detected (NotDetected)
[2024-12-07] MEDS: PIPERACILLIN/TAZOBACTAM 4.5 GM/100 ML BAG IV SCH (20:35)
--- NOTE | 2024-12-08 08:04 | Hospitalist Progress Note ---
Date of Service December 08, 2024 Assessment & Plan (1) SOB (shortness of breath): (2) Pulmonary vascular congestion: (3) ESRD (end stage renal disease) on dialysis: (4) Diabetes mellitus, type 2: (5) Hyperlipidemia: (6) CKD (chronic kidney disease): Plan Acute Pulmonary Edema-in setting of ESRD Hx of Parainfluenza 4 viral Upper resp Infection COPD exacerbation with ? prolonged bronchitis -suspect hypoxia/SOB multifactorial in setting of COPD exac, volume overload iso ESRD, CHF exacerbation, recent upper respiratory viral infection, Prolonged bronchitis - resp biofire +ve for parainfluenza 4 during recent hospital stay - Prednisone 40 mg daily and will require long taper over at least 2 weeks. Cont budesonide and fomoterol inh BID, and duonebs Q6H, incentive spirometry, flutter Blood cx - NGTD Continue on Zosyn and vancomycin. Nephrology recommends cardiology evaluation given history of moderate prosthetic stenosis. Cardiology consulted; Recommend outpatient follow-up with cardiology. Will obtain repeat chest x-ray today due to increased shortness of breath Continue dialysis as per nephrology Oral candidiasis - Nystatin swish and swallow - likely due to neb tx and not rinsing mouth out afterwards ESRD on dialysis: -MWF schedule -nephrology consulted, appreciate recs -continue dialysis Myocardial injury: -appears to have chronic elevated troponins - Recent ECHO w/ EF of 50-55%, LV wall motion nl from last admission. Hypertension -continue amlodipine Diabetes mellitus, type II - ISS with accuchecks achs - A1C 6.2 in September 2024 DVT prophylaxis: Heparin subcu Lines: PIV x 1 FEN/GI: DNR/DNI PT/OT, CM to assist with DC planning. Time spent evaluating patient, direct bedside care, chart review, placing orders, interpretation of diagnostic studies, discussion with consultants, patient, and family members, as well as other required patient management activities is 50 minutes Please note the above document was generated using voice recognition software. It may contain grammatical, syntax or spelling errors. Any formal questions or concerns about the content, text or information contained within the body of this dictation should be directly addressed to the provider for clarification Admission and Anticipated Discharge Date Admission Date: December 06, 2024 Subjective Patient seen and examined at bedside Patient reports shortness of breath while seen in dialysis. Patient was placed on BiPAP Review of Systems Review of Systems: All systems reviewed & are unremarkable except as noted in Subjective Physical Exam Physical Exam: General: awake, alert, no apparent distress, elderly white male Head: Normocephalic, atraumatic ENT: PERRL, EOMI, + white exudate on tongue, mucous membranes dry Chest: Bilateral basal crackles present. Cardiac: Regular rate and rhythm, + PVCs, + faint murmur, no JVD, normal peripheral pulses, good capillary refill, chest pain is not reproducible with palpation Abdominal: NABS x 4 quadrants, soft, nondistended, nontender to palpation, no rebound or guarding Extremities: Chronic skin changes, normal inspection, no peripheral edema or erythema, calfs nontender to palpation, onychomycosis Psych: Normal mood and affect Neuro: AAO x 3, strength intact bilaterally and rated 5/5, no motor deficits, speech is clear, no peripheral sensory deficits Results & Data Results & Data Vital Signs (Past 12 Hours) Vital Signs Temp Pulse Pulse Resp BP Pulse Ox O2 Del Method 12/08/24 07:47 71 16 97 Nasal Cannula 12/08/24 07:25 36.2 C L 69 16 143/70 H 98 Nasal Cannula 12/08/24 03:42 36.8 C 80 18 131/73 92 Room Air 12/08/24 01:24 73 16 96 Nasal Cannula 12/08/24 00:24 74 12/07/24 23:37 Nasal Cannula 12/07/24 23:10 36.4 C L 73 18 117/68 99 Nasal Cannula O2 Flow Rate 12/08/24 07:47 2 12/08/24 07:25 2 12/08/24 03:42 12/08/24 01:24 2 12/08/24 00:24 12/07/24 23:37 2 12/07/24 23:10 2 (4) Diabetes mellitus, type 2 Diabetes mellitus complication status: without complication Diabetes mellitus ferry terminal agent insulin use: without ferry terminal agent use Qualified Code(s): E11.9 - Type 2 diabetes mellitus without complications
[2024-12-08] MEDS: HEPARIN SOD (PORCINE) 1000 UNIT/ML IV ONE (09:48)
--- NOTE | 2024-12-08 10:03 | Dialysis Progress Note ---
Date of Service December 08, 2024 Assessment & Plan Admission and Anticipated Discharge Date Admission Date: December 06, 2024 Subjective A/P ESRD--Dialysis today. 4 hrs and take 3.5 Kilo off. BP is fine so far. However unlikely to get that much off today. Resp failure--- Multifactorial--cardiac, Pulm and deconditioning. reviewed cards note. S---Seen during Dialysis. So far doing fine. No new complaints. AVF fine. BP is holding good so far. Physical Exam Constitutional: + thin, + frail appearing and cooperative; no acute distress Eyes: EOM intact bilaterally ENMT: Ears: no external ear abnormality Nose: no external nose abnormality Mouth: + dry oral mucous membranes Neck: no nuchal rigidity Respiratory: normal respiratory effort Auscultation: + diminished lung sounds and + wheezes (diffusely) Cardiovascular: Rate/Rhythm: regular rate and regular rhythm Heart Sounds: + murmur Extremities: + AV fistula; no edema Gastrointestinal (Abdomen): Inspection/Auscultation: normal bowel sounds Percussion/Palpation: abdomen soft; abdomen nontender Musculoskeletal: Extremities: strength 5/5 throughout Skin: no rashes, warm and dry Neurologic: albarran, fluent speech, no tremor Results & Data Vital Signs (Past 12 Hours) Vital Signs Temp Pulse Pulse Pulse Resp BP Pulse Ox 12/08/24 09:13 36.3 C L 76 12/08/24 07:47 71 16 97 12/08/24 07:30 72 12/08/24 07:25 36.2 C L 69 16 143/70 H 98 12/08/24 03:42 36.8 C 80 18 131/73 92 12/08/24 01:24 73 16 96 12/08/24 00:24 74 12/07/24 23:37 12/07/24 23:10 36.4 C L 73 18 117/68 99 O2 Del Method O2 Flow Rate 12/08/24 09:13 12/08/24 07:47 Nasal Cannula 2 12/08/24 07:30 12/08/24 07:25 Nasal Cannula 2 12/08/24 03:42 Room Air 12/08/24 01:24 Nasal Cannula 2 12/08/24 00:24 12/07/24 23:37 Nasal Cannula 2 12/07/24 23:10 Nasal Cannula 2
[2024-12-08] MEDS: EPOETIN ALFA 10,000 UNITS/ML VIAL IV ONE (10:27)
--- NOTE | 2024-12-08 13:29 | Pharmacy Report ---
Pharmacy PK ABX Note - Date of Service December 08, 2024 - Assessment and Plan Assessment 12/08: Reviewed pre-dialysis vancomycin level of 18.2mcg/mL, dialysis today, will give 750mg x1 after dialysis per PK protocol. Next level before next HD session 12/07: 79 year old M receiving vancomycin and zosyn empirically. Blood cultures pending. ESRD on iHD MWF. HD orders for 12/08. Day #1 of antimicrobial therapy. Plan Vancomycin * Loading dose: 1750 mg IV x 1 * Pre-dialysis level 18.2mcg/mL, 750mg x1 after dialyssis today * Given iHD, will plan to dose vancomycin by levels. * Next level prior to next HD session Pharmacy will continue to follow and will adjust dose/frequency as necessary. Thank you.
[2024-12-08] MEDS: HEPARIN SOD (PORCINE) 1000 UNIT/ML IV SCH (13:58)
--- NOTE | 2024-12-08 14:35 | XRay Report ---
XR chest 1V portable CLINICAL HISTORY: increasing sob COMPARISON STUDY: 12/06/2024 FINDINGS: There is stable aortic valve repair. Stable cardiomegaly with mild pulmonary vascular conge stion. Stable hazy opacity at bilateral lung bases with obscuration of the diaphragm. No pneumothorax . IMPRESSION: Stable exam. ACT 112: Negative or not required by law. Electronically signed by: Orion Mills M.D. 12/08/2024 2:34 PM
--- NOTE | 2024-12-08 17:02 | Cardiology Progress Note ---
Date of Service December 08, 2024 Assessment & Plan (1) Shortness of breath: (2) S/P TAVR (transcatheter aortic valve replacement): (3) Aortic valve stenosis determined by imaging: (4) Bronchospasm: (5) COPD (chronic obstructive pulmonary disease): (6) ESRD (end stage renal disease) on dialysis: (7) Chronic anemia: Plan As previously noted, dyspnea at rest is unlikely to be due to moderate bioprosthetic aortic valve stenosis. Minimal bronchospasm only. Volume status appears reasonable, chest x-ray is at baseline and neck veins are not elevated, he is able to lie fairly flat. Would check oxygenation off supplement and with activity to see if hypoxemia plays a role. No new recommendations. If he is able to be discharged before then, he has an upcoming cardiology consultation with Dr. Perez on 12/11/2024. Admission and Anticipated Discharge Date Admission Date: December 06, 2024 Subjective No real change. Underwent dialysis today. Feels somewhat fatigued and still becomes breathless with mild activities. No chest pain, lightheadedness, or palpitations. Telemetry showed sinus rhythm in the 60 bpm range with sporadic PACs. Physical Exam Physical Exam: Chronically ill appearing elderly white male in no acute distress. Afebrile. BP 97/63 mmHg. Pulse 60 bpm and regular. Respirations 18 and unlabored. Skin: no ecchymoses or generalized lesions. HEENT: unremarkable. Neck: JVP shows increased respiratory variation but is not obviously elevated. Lungs: Moderately decreased breath sounds with occasional expiratory wheeze. No accessory muscle use. Cardiac: regular rhythm, normal S1, aortic closure sound seems intact and fairly brisk, but difficult to exclude the possibility this is transmitted pulmonic closure, 2/6 crescendo/decrescendo systolic murmur at the base, no diastolic murmur.. Abdomen: benign. Extremities: no edema, pulses intact. Neurologic: normal affect and conversation, nonfocal. Results & Data Diagnostic Findings Chest x-ray today showed mild pulmonary vascular congestion. Unchanged overall. PG Care Time/CCT Total # of Minutes Spent Total Time Spent with Patient: Total time spent is greater than 50% in coordination of care (as documented) at patient's floor/unit and/or counseling patient: Coding Level of Care Code 52158 SUB INP/OBS CARE 2/35MIN Diagnoses Shortness of breath R06.02 S/P TAVR (transcatheter aortic valve replacement) Z95.2 Aortic valve stenosis determined by imaging I35.0 Bronchospasm J98.01 COPD (chronic obstructive pulmonary disease) J44.9 ESRD (end stage renal disease) on dialysis N18.6; Z99.2 Chronic anemia D64.9
[2024-12-08] MEDS: VANCOMYCIN 750 MG in SODIUM CHLORIDE 0.9% 250 ML IV ONE (18:07)
[2024-12-08] MEDS: INSULIN HUMAN REGULAR PER UNIT 5 UNITS in SYRINGE 4.95 ML IV STA (20:52)
[2024-12-08] MEDS: LANTUS PER UNIT CHARGE SQ SCH (21:21)
[2024-12-09 07:26] LABS: Basophils # (auto) 0.04 K/uL (0.00-0.20); Basophils % (auto) 0.4 %; Eosinophils # (auto) 0.01 K/uL (0.00-0.50); Eosinophils % (auto) 0.1 %; Hematocrit (blood only) 31.4 % (42.0-52.0); Hemoglobin 9.7 g/dl (14.0-18.0); Immature Granulocytes # (auto) 0.12 K/uL (0.01-0.20); Immature Granulocytes % (auto) 1.1 %; Lymphocytes # (auto) 1.93 K/uL (1.20-3.40); Lymphocytes % (auto) 17.9 %; Mean Corpuscular Hemoglobin 29.7 pg (25.0-34.0); Mean Corpuscular Hgb Conc 30.9 g/dL (32.0-36.0); Mean Platelet Volume 12.1 fL (9.4-12.4); Monocytes % (auto) 10.2 %; Neutrophils # (auto) 7.58 K/uL (1.40-6.50); Neutrophils % (auto) 70.3 %; Platelet Count 137 K/uL (130-400); RDW Coefficient of Variation 16.5 % (11.5-14.5); RDW Standard Deviation 57.1 fL (36.4-46.3); Red Blood Count 3.27 M/uL (4.70-6.10); White Blood Count 10.78 K/ul (4.8-10.8)
[2024-12-09 07:37] LABS: BUN Creatinine Ratio 8.4 (10-20); Calcium 8.8 mg/dl (8.6-10.3); Creatinine Clr Calc Pharmacy 13.6 ml/min; Potassium 4.8 mmol/L (3.5-5.1)
--- NOTE | 2024-12-09 13:40 | Hospitalist Progress Note ---
Date of Service December 09, 2024 Assessment & Plan (1) SOB (shortness of breath): (2) Pulmonary vascular congestion: (3) ESRD (end stage renal disease) on dialysis: (4) Diabetes mellitus, type 2: (5) Hyperlipidemia: (6) CKD (chronic kidney disease): Plan Acute Pulmonary Edema-in setting of ESRD History of recent parainfluenza infection Pneumonia Acute COPD exacerbation -suspect hypoxia/SOB multifactorial in setting of COPD exac, volume overload iso ESRD, CHF exacerbation, recent upper respiratory viral infection, Prolonged bronchitis - Resp biofire +ve for parainfluenza 4 during recent hospital stay - CXR shows stable hazy opaciety at b/l lung bases Cont budesonide and fomoterol inh BID, and duonebs Q6H, incentive spirometry, flutter Started on Zosyn given recent hospitalization. Discontinue vancomycin Evaluated by cardiology; recommend outpatient follow-up Dialysis as per nephrology Prednisone decreased to 20 mg once a day; plan to gradually downtrend. Oral candidiasis - Nystatin swish and swallow - likely due to neb tx and not rinsing mouth out afterwards ESRD on dialysis: -MWF schedule -nephrology consulted, appreciate recs -continue dialysis Myocardial injury: -appears to have chronic elevated troponins - Recent ECHO w/ EF of 50-55%, LV wall motion nl from last admission. Hypertension -continue amlodipine Diabetes mellitus, type II - ISS with accuchecks achs - A1C 6.2 in September 2024 DVT prophylaxis: Heparin subcu Lines: PIV x 1 FEN/GI: DNR/DNI PT/OT, CM to assist with DC planning. Time spent evaluating patient, direct bedside care, chart review, placing orders, interpretation of diagnostic studies, discussion with consultants, patient, and family members, as well as other required patient management activities is 50 minutes Please note the above document was generated using voice recognition software. It may contain grammatical, syntax or spelling errors. Any formal questions or concerns about the content, text or information contained within the body of this dictation should be directly addressed to the provider for clarification Admission and Anticipated Discharge Date Admission Date: December 06, 2024 Subjective Patient seen and examined at bedside; he is sitting up on the bed; not in distress. He is requiring 2 L of oxygen by nasal cannula. Review of Systems Review of Systems: All systems reviewed & are unremarkable except as noted in Subjective Physical Exam Physical Exam: General: awake, alert, no apparent distress, elderly white male Head: Normocephalic, atraumatic ENT: PERRL, EOMI, + white exudate on tongue, mucous membranes dry Chest: Bilateral basal crackles present. Cardiac: Regular rate and rhythm, + PVCs, + faint murmur, no JVD, normal peripheral pulses, good capillary refill, chest pain is not reproducible with palpation Abdominal: NABS x 4 quadrants, soft, nondistended, nontender to palpation, no rebound or guarding Extremities: Chronic skin changes, normal inspection, no peripheral edema or erythema, calfs nontender to palpation, onychomycosis Psych: Normal mood and affect Neuro: AAO x 3, strength intact bilaterally and rated 5/5, no motor deficits, speech is clear, no peripheral sensory deficits Results & Data Results & Data Vital Signs (Past 12 Hours) Vital Signs Temp Pulse Pulse Pulse Resp BP Pulse Ox 12/09/24 12:16 71 18 99 12/09/24 11:28 36.3 C L 73 18 143/79 H 12/09/24 11:22 12/09/24 07:30 36.4 C L 73 138/79 99 12/09/24 07:22 77 12/09/24 07:21 80 19 98 12/09/24 03:15 36.4 C L 79 20 136/74 99 O2 Del Method O2 Flow Rate 12/09/24 12:16 Nasal Cannula 2 12/09/24 11:28 12/09/24 11:22 Nasal Cannula 2 12/09/24 07:30 Room Air 12/09/24 07:22 12/09/24 07:21 Nasal Cannula 2 12/09/24 03:15 Nasal Cannula 2 (4) Diabetes mellitus, type 2 Diabetes mellitus manager long term care insulin use: without fci use Diabetes mellitus complication status: without complication Qualified Code(s): E11.9 - Type 2 diabetes mellitus without complications
--- NOTE | 2024-12-09 15:07 | Cardiology Progress Note ---
Date of Service December 09, 2024 Assessment & Plan (1) Shortness of breath: (2) S/P TAVR (transcatheter aortic valve replacement): (3) Aortic valve stenosis determined by imaging: (4) Bronchospasm: (5) COPD (chronic obstructive pulmonary disease): (6) ESRD (end stage renal disease) on dialysis: (7) Chronic anemia: Plan As previously noted, dyspnea at rest is unlikely to be due to moderate bioprosthetic aortic valve stenosis. Minimal bronchospasm only. Volume status appears reasonable, chest x-ray is at baseline and neck veins are not elevated, he is able to lie fairly flat. No new recommendations, will sign off. If he is able to be discharged before then, he has an upcoming cardiology consultation with Dr. Perez on 12/11/2024. Admission and Anticipated Discharge Date Admission Date: December 06, 2024 Subjective Feels a little better today. Slept fairly well. Was able to ambulate short distances without unusual dyspnea. Denied chest pain, dyspnea at rest, palpitations, or lightheadedness. Telemetry showed sinus rhythm in the 70 bpm range. Physical Exam Physical Exam: No distress. Normotensive. Pulse 70 bpm and regular. Respirations 18 and unlabored. Skin: no ecchymoses or generalized lesions. HEENT: unremarkable. Neck: JVP shows increased respiratory variation but is not obviously elevated. Lungs: Moderately decreased breath sounds with occasional expiratory wheeze. No accessory muscle use. Cardiac: regular rhythm, normal S1, aortic closure sound seems intact and fairly brisk, but difficult to exclude the possibility this is transmitted pulmonic closure, 2/6 crescendo/decrescendo systolic murmur at the base, no diastolic murmur.. Abdomen: benign. Extremities: no edema, pulses intact. Neurologic: normal affect and conversation, nonfocal. Results & Data Vital Signs (Past 12 Hours) Hemoglobin 9.7, normal white count platelet count. Sodium 134, otherwise normal electrolytes, BUN 36, creatinine 4.27. PG Care Time/CCT Total # of Minutes Spent Total Time Spent with Patient: Total time spent is greater than 50% in coordination of care (as documented) at patient's floor/unit and/or counseling patient: Coding Level of Care Code 77680 SUB INP/OBS CARE 1/25MIN Diagnoses Shortness of breath R06.02 S/P TAVR (transcatheter aortic valve replacement) Z95.2 Aortic valve stenosis determined by imaging I35.0 Bronchospasm J98.01 COPD (chronic obstructive pulmonary disease) J44.9 ESRD (end stage renal disease) on dialysis N18.6; Z99.2 Chronic anemia D64.9
[2024-12-10 06:10] LABS: Basophils # (auto) 0.02 K/uL (0.00-0.20); Basophils % (auto) 0.2 %; Hemoglobin 9.8 g/dl (14.0-18.0); Immature Granulocytes # (auto) 0.07 K/uL (0.01-0.20); Immature Granulocytes % (auto) 0.7 %; Lymphocytes # (auto) 1.66 K/uL (1.20-3.40); Lymphocytes % (auto) 16.8 %; Mean Corpuscular Hemoglobin 30.2 pg (25.0-34.0); Mean Corpuscular Hgb Conc 31.6 g/dL (32.0-36.0); Mean Corpuscular Volume 95.4 fL (80.0-100.0); Monocytes # (auto) 0.98 K/uL (0.11-0.59); Monocytes % (auto) 9.9 %; Neutrophils # (auto) 7.17 K/uL (1.40-6.50); Neutrophils % (auto) 72.4 %; Platelet Count 137 K/uL (130-400); RDW Coefficient of Variation 16.3 % (11.5-14.5); RDW Standard Deviation 56.2 fL (36.4-46.3); Red Blood Count 3.25 M/uL (4.70-6.10)
[2024-12-10 06:24] LABS: BUN Creatinine Ratio 10.2 (10-20); Calcium 9.3 mg/dl (8.6-10.3); Creatinine Clr Calc Pharmacy 10.7 ml/min; Potassium 4.4 mmol/L (3.5-5.1)
[2024-12-10] MEDS: predniSONE 20 MG TAB PO SCH (08:27)
[2024-12-10] MEDS: GABAPENTIN 100 MG CAP PO PRN (08:27)
--- NOTE | 2024-12-10 10:56 | Dialysis Progress Note ---
Date of Service December 10, 2024 Assessment & Plan Admission and Anticipated Discharge Date Admission Date: December 06, 2024 Subjective Subjective A/P ESRD--Dialysis today. 3.5 hrs and take 2 Kilo off. BP is fine so far. Resp failure--- Multifactorial--cardiac, Pulm and deconditioning. reviewed cards note--No e/o fluid overload. Blood C/s are all negative. still on broad spectrum Abx. S---Seen during Dialysis. So far doing fine. However he is declining slowly. Less Interactive. No new complaints. AVF fine. BP is holding good so far. Physical Exam Constitutional: + thin, + frail appearing and cooperative; no acute distress Eyes: EOM intact bilaterally ENMT: Ears: no external ear abnormality Nose: no external nose abnormality Mouth: + dry oral mucous membranes Neck: no nuchal rigidity Respiratory: normal respiratory effort Auscultation: + diminished lung sounds and + wheezes (diffusely) Cardiovascular: Rate/Rhythm: regular rate and regular rhythm Heart Sounds: + murmur Extremities: + AV fistula; no edema Gastrointestinal (Abdomen): Inspection/Auscultation: normal bowel sounds Percussion/Palpation: abdomen soft; abdomen nontender Musculoskeletal: Extremities: strength 5/5 throughout Skin: no rashes, warm and dry Neurologic: Not interactive now. Results & Data Vital Signs (Past 12 Hours) Vital Signs Temp Pulse Pulse Pulse Resp BP Pulse Ox 12/10/24 10:44 66 12/10/24 08:21 36.4 C L 71 20 136/75 99 12/10/24 08:18 12/10/24 07:19 66 18 99 12/10/24 03:33 36.6 C 74 20 131/76 98 12/09/24 23:56 36.4 C L 73 18 138/75 99 O2 Del Method O2 Flow Rate 12/10/24 10:44 12/10/24 08:21 Nasal Cannula 2 12/10/24 08:18 Nasal Cannula 2 12/10/24 07:19 Nasal Cannula 2 12/10/24 03:33 Nasal Cannula 2 12/09/24 23:56 Room Air
[2024-12-10] MEDS: EPOETIN ALFA 10,000 UNITS/ML VIAL IV ONE (12:09)
--- NOTE | 2024-12-10 16:14 | Hospitalist Progress Note ---
Date of Service December 10, 2024 Assessment & Plan (1) SOB (shortness of breath): (2) Pulmonary vascular congestion: (3) ESRD (end stage renal disease) on dialysis: (4) Diabetes mellitus, type 2: (5) Hyperlipidemia: (6) CKD (chronic kidney disease): Plan Acute Pulmonary Edema-in setting of ESRD H/O recent parainfluenza infection Pneumonia Acute COPD exacerbation Suspect hypoxia/SOB multifactorial in setting of COPD exac, volume overload iso ESRD, CHF exacerbation, recent upper respiratory viral infection, Prolonged bronchitis --Biofire +ve for parainfluenza 4 during recent hospital stay --Nasal MRSA negative --CXR shows stable hazy opaciety at b/l lung bases --Continue budesonide and formoterol BID, duonebs, incentive spirometry, flutter --Vancomycin -- Continue Zosyn Evaluated by cardiology; recommend outpatient follow-up Continue dialysis as per nephrology Prednisone decreased to 20 mg once a day Titrate down steroids as able PT OT prior to discharge Wean off of supplemental oxygen as able to keep saturations 88 to 92% Likely plan to discharge in 1 to 2 days. May need 2 step prior to discharge Oral candidiasis - Nystatin swish and swallow ESRD on dialysis: -MWF schedule Appreciate nephrology help continue dialysis per nephrology Myocardial injury: -Appears to have chronic elevated troponins -Recent ECHO w/ EF of 50-55%, LV wall motion nl from last admission. Hypertension -continue amlodipine Diabetes mellitus, type II - ISS with accuchecks achs - A1C 6.2 in September 2024 DVT Px: Heparin SQ Code Status DNR/DNI Admission and Anticipated Discharge Date Admission Date: December 06, 2024 Subjective Patient is seen and examined at bedside Was having hemodialysis during my encounter Dyspnea, cough much improved per patient Denies any chest pain, nausea, vomiting, abdominal pain No other complaints Review of Systems Review of Systems: All systems reviewed & are unremarkable except as noted in Subjective Physical Exam Physical Exam: Physical Exam: Vitals signs as noted above General Appearance:Moderately built and nourished, no apparent distress, frail, elderly Head: normocephalic, Atraumatic Eyes: normal inspection, EOMI Neck: supple, Trachea midline Respiratory/Chest: Decreased breath sounds, basal crackles, No accessory muscle use Cardiovascular: S1, S2, + murmur Abdomen/GI:Soft, Non tender, Bowel sounds present Extremities/Musculoskeletal:normal inspection, no edema Neurologic/Psych:AAOX3, grossly no focal neurological deficits Skin: normal color, warm Results & Data Results & Data Vital Signs (Past 12 Hours) Vital Signs Temp Pulse Pulse Pulse Resp BP BP 12/10/24 15:30 36.4 C L 77 20 117/68 12/10/24 13:35 36.4 C L 69 125/70 12/10/24 13:30 60 114/61 12/10/24 13:00 60 121/68 12/10/24 12:30 59 L 125/58 L 12/10/24 12:00 51 L 85/45 L 12/10/24 11:30 63 116/70 12/10/24 11:00 54 L 119/57 L 12/10/24 10:44 66 12/10/24 10:30 66 116/55 L 12/10/24 10:02 52 L 134/68 12/10/24 09:51 36.3 C L 70 12/10/24 08:21 36.4 C L 71 20 136/75 12/10/24 08:18 12/10/24 07:19 66 18 Pulse Ox O2 Del Method O2 Flow Rate 12/10/24 15:30 100 Nasal Cannula 2 12/10/24 13:35 12/10/24 13:30 12/10/24 13:00 12/10/24 12:30 12/10/24 12:00 12/10/24 11:30 12/10/24 11:00 12/10/24 10:44 12/10/24 10:30 12/10/24 10:02 12/10/24 09:51 12/10/24 08:21 99 Nasal Cannula 2 12/10/24 08:18 Nasal Cannula 2 12/10/24 07:19 99 Nasal Cannula 2 Laboratory Results Short CBC 12/10/24 Range/Units 05:39 WBC 9.90 (4.8-10.8) K/ul Hgb 9.8 L (14.0-18.0) g/dl Hct 31.0 L (42.0-52.0) % Plt Count 137 (130-400) K/uL BMP 12/10/24 05:39 Sodium 135 L Potassium 4.4 Chloride 94 L Carbon Dioxide 27 BUN 55 H Creatinine 5.41 H* D Glucose 117 H Calcium 9.3 (4) Diabetes mellitus, type 2 Diabetes mellitus snf insulin use: without snf use Diabetes mellitus complication status: without complication Qualified Code(s): E11.9 - Type 2 diabetes mellitus without complications
[2024-12-10] MEDS: BUDESONIDE 0.5 MG/2 ML VIAL (PULMICORT) NEB SCH (18:26)
[2024-12-11 00:20] VITALS: TEMP 97.3
[2024-12-11 08:37] LABS: BUN Creatinine Ratio 8.6 (10-20); Calcium 9.2 mg/dl (8.6-10.3); Creatinine Clr Calc Pharmacy 14.6 ml/min
--- NOTE | 2024-12-11 11:07 | Nephrology Progress Note ---
Date of Service December 11, 2024 Assessment & Plan Admission and Anticipated Discharge Date Admission Date: December 06, 2024 Subjective Subjective A/P ESRD--Dialysis tomorrow if still in Hospital. for 3.5 hrs and take 2 Kilo off. BP is fine . No e/o fluid overload. reviewed labs and all lytes are fine. hgb is low and will get DARYL with dialysis Resp failure--- Multifactorial--cardiac, Pulm and deconditioning. reviewed cards note--No e/o fluid overload. Blood C/s are all negative. still on broad spectrum Abx. S---had Dialysis yesterday. Looks more alert and better mood today. No new complaints. Physical Exam Constitutional: + thin, + frail appearing and cooperative; no acute distress Eyes: EOM intact bilaterally ENMT: Ears: no external ear abnormality Nose: no external nose abnormality Mouth: + dry oral mucous membranes Neck: no nuchal rigidity Respiratory: normal respiratory effort Auscultation: + diminished lung sounds and + wheezes (diffusely) Cardiovascular: Rate/Rhythm: regular rate and regular rhythm Heart Sounds: + murmur Extremities: + AV fistula; no edema Gastrointestinal (Abdomen): Inspection/Auscultation: normal bowel sounds Percussion/Palpation: abdomen soft; abdomen nontender Musculoskeletal: Extremities: strength 5/5 throughout Skin: no rashes, warm and dry Neurologic: Not interactive now. Results & Data Vital Signs (Past 12 Hours) Vital Signs Temp Pulse Pulse Pulse Resp BP Pulse Ox 12/11/24 08:58 65 12/11/24 07:54 36.3 C L 62 18 125/69 100 12/11/24 07:16 12/11/24 06:28 66 17 97 12/11/24 03:35 36.3 C L 76 20 138/72 97 12/11/24 00:42 65 20 99 12/11/24 00:19 36.3 C L 72 20 118/68 93 12/10/24 23:35 70 19 100 O2 Del Method O2 Flow Rate FiO2 12/11/24 08:58 12/11/24 07:54 Nasal Cannula 12/11/24 07:16 Nasal Cannula 1 12/11/24 06:28 Nasal Cannula 2 12/11/24 03:35 Nasal Cannula 2 12/11/24 00:42 BiPAP 30 02/06/25 00:19 Room Air, CPAP 12/10/24 23:35 40
[2024-12-11 11:31] VITALS: BP 105/65
--- NOTE | 2024-12-11 12:45 | Hospitalist Progress Note ---
Date of Service December 11, 2024 Assessment & Plan (1) SOB (shortness of breath): (2) Pulmonary vascular congestion: (3) ESRD (end stage renal disease) on dialysis: (4) Diabetes mellitus, type 2: (5) Hyperlipidemia: (6) CKD (chronic kidney disease): Plan Acute Pulmonary Edema-in setting of ESRD H/O recent parainfluenza infection Pneumonia Acute COPD exacerbation Suspect hypoxia/SOB multifactorial in setting of COPD exac, volume overload iso ESRD, CHF exacerbation, recent upper respiratory viral infection, Prolonged bronchitis --Biofire +ve for parainfluenza 4 during recent hospital stay --Nasal MRSA negative --CXR shows stable hazy opacity at b/l lung bases --Continue budesonide and formoterol BID, duoneb, incentive spirometry, flutter --Vancomycin -- Continue Zosyn Evaluated by cardiology; recommend outpatient follow-up Continue dialysis as per nephrology Prednisone decreased to 10 mg once a day PT OT recommends Home Weaned off of supplemental oxygen 2 step: didnt qualify for oxygen Plan to discharge home today Oral candidiasis - Nystatin swish and swallow ESRD on dialysis: -MWF schedule Appreciate nephrology help continue dialysis per nephrology Myocardial injury: -Appears to have chronic elevated troponins -Recent ECHO w/ EF of 50-55%, LV wall motion nl from last admission. Hypertension -continue amlodipine Diabetes mellitus, type II - ISS with accuchecks achs - A1C 6.2 in September 2024 DVT Px: Heparin SQ Code Status DNR/DNI Disposition Home Admission and Anticipated Discharge Date Admission Date: December 06, 2024 Subjective Patient is seen and examined at bedside Minimal cough but otherwise no complaints Had 2 step earlier today Updated patient's over the phone Denies Dyspnea, chest pain, nausea, vomiting, abdominal pain Plan to discharge home today Review of Systems Review of Systems: All systems reviewed & are unremarkable except as noted in Subjective Physical Exam Physical Exam: Physical Exam: Vitals signs as noted above General Appearance:Moderately built and nourished, no apparent distress, frail, elderly Head: normocephalic, Atraumatic Eyes: normal inspection, EOMI Neck: supple, Trachea midline Respiratory/Chest: Decreased breath sounds, basal crackles, No accessory muscle use Cardiovascular: S1, S2, + murmur Abdomen/GI:Soft, Non tender, Bowel sounds present Extremities/Musculoskeletal:normal inspection, no edema Neurologic/Psych:AAOX3, grossly no focal neurological deficits Skin: normal color, warm Results & Data Results & Data Vital Signs (Past 12 Hours) Vital Signs Temp Pulse Pulse Pulse Pulse Pulse Resp 12/11/24 12:16 68 58 L 12/11/24 11:30 36.3 C L 63 18 12/11/24 08:58 65 12/11/24 07:54 36.3 C L 62 18 12/11/24 07:16 12/11/24 06:28 66 17 12/11/24 03:35 36.3 C L 76 20 12/11/24 00:42 65 20 Resp Resp BP Pulse Ox Pulse Ox Pulse Ox O2 Del Method 12/11/24 12:16 20 16 96 100 12/11/24 11:30 105/65 99 Nasal Cannula 12/11/24 08:58 12/11/24 07:54 125/69 100 Nasal Cannula 12/11/24 07:16 Nasal Cannula 12/11/24 06:28 97 Nasal Cannula 12/11/24 03:35 138/72 97 Nasal Cannula 12/11/24 00:42 99 BiPAP O2 Flow Rate FiO2 12/11/24 12:16 12/11/24 11:30 12/11/24 08:58 12/11/24 07:54 12/11/24 07:16 1 12/11/24 06:28 2 12/11/24 03:35 2 12/11/24 00:42 30 Laboratory Results BMP 12/11/24 07:38 Sodium 136 Potassium 4.0 Chloride 99 Carbon Dioxide 28 BUN 34 H D Creatinine 3.95 H D Glucose 163 H Calcium 9.2 (4) Diabetes mellitus, type 2 Diabetes mellitus nursing home insulin use: without nursing home use Diabetes mellitus complication status: without complication Qualified Code(s): E11.9 - Type 2 diabetes mellitus without complications
--- NOTE | 2024-12-11 12:51 | Discharge Summary ---
Date of Service December 11, 2024 Admission HPI Per Admitting Provider This is a 79-year-old male who has a significant past medical history of ESRD on HD Sunday, T2DM, diabetic peripheral neuropathy, diabetic retinopathy, PVD, secondary hyperparathyroidism, COPD, tobacco abuse, hypertension, aortic stenosis s/p TAVR in 2021, anemia of chronic disease, BPH who presents to the hospital with exertional chest pain and shortness of breath. He has had worsening breathing over the past 3 days. He did complete his outpatient course of antibiotics. He notes that with exertion he notices chest pain, which is relieved after approximately 15 minutes of rest. This has been an ongoing issue for some time now, and he states that occasionally when he uses a nebulizer treatment this does improve his breathing which improves his chest pain. Other major complaint today is of sore mouth, burning throat, pain with swallowing. There is some white exudate in his mouth. He took all of his morning medications today. Patient completed full dialysis session yesterday. His daughter visits him at least once per day, and has a visiting nurse at home who comes in once per week and was there yesterday. This is very similar to most recent admission where pt was here from 11/24/24- 11/27/24. At that time the patient had an elevated troponin up to 137 and trended down to 90. He had an echocardiogram completed which showed moderate concentric LVH, LVEF of 50 to 55%, COREY TAVR present, prosthetic leaflet appeared mobile but mildly restricted in mobility. Velocities of the valve are elevated and suggestive of moderate prosthesis stenosis. Trace aortic regurg, mild to moderate mitral regurg, trace tricuspid regurg. CXR today shows stable diffuse interstitial and airspace infiltrates and small pleural effusions left greater than right. BNP is 4700 and Troponin is 115. Admission Exam Per Admitting Provider General: awake, alert, no apparent distress, elderly white male Head: Normocephalic, atraumatic ENT: PERRL, EOMI, + white exudate on tongue, mucous membranes dry Chest: Coarse breath sounds, diminshed breath sounds at left base, on 2 L via NC O2 sats 94%, + expiratory wheeze, no rales or rhonchi Cardiac: Regular rate and rhythm, + PVCs, + faint murmur, no JVD, normal peripheral pulses, good capillary refill, chest pain is not reproducible with palpation Abdominal: NABS x 4 quadrants, soft, nondistended, nontender to palpation, no rebound or guarding Extremities: Chronic skin changes, normal inspection, no peripheral edema or erythema, calfs nontender to palpation, onychomycosis Psych: Normal mood and affect Neuro: AAO x 3, strength intact bilaterally and rated 5/5, no motor deficits, speech is clear, no peripheral sensory deficits Principal Diagnosis Acute Pulmonary Edema Parainfluenza infection Pneumonia Acute COPD exacerbation Oral candidiasis Discharge Data Allergies Allergy/AdvReac Type Severity Reaction Status Date / Time No Known Allergies Allergy Verified 10/23/24 13:05 Consultations 12/06/24 12:22 ED Decision to Admit Stat 12/06/24 13:06 Consult Nephrology Routine 12/07/24 10:44 Consult Cardiology Routine Procedures Performed Laboratory Results WBC 9.90 K/ul (4.8-10.8) 12/10/24 05:39 RBC 3.25 M/uL (4.70-6.10) L 12/10/24 05:39 Hgb 9.8 g/dl (14.0-18.0) L 12/10/24 05:39 Hct 31.0 % (42.0-52.0) L 12/10/24 05:39 MCV 95.4 fL (80.0-100.0) 12/10/24 05:39 MCH 30.2 pg (25.0-34.0) 12/10/24 05:39 MCHC 31.6 g/dL (32.0-36.0) L 12/10/24 05:39 RDW Std Deviation 56.2 fL (36.4-46.3) H 12/10/24 05:39 RDW Coeff of Danny 16.3 % (11.5-14.5) H 12/10/24 05:39 Plt Count 137 K/uL (130-400) 12/10/24 05:39 MPV 12.0 fL (9.4-12.4) 12/10/24 05:39 Immature Gran % (Auto) 0.7 % 12/10/24 05:39 Neut % (Auto) 72.4 % 12/10/24 05:39 Lymph % (Auto) 16.8 % 12/10/24 05:39 Grayson % (Auto) 9.9 % 12/10/24 05:39 Eos % (Auto) 0.0 % 12/10/24 05:39 Baso % (Auto) 0.2 % 12/10/24 05:39 Neut # (Auto) 7.17 K/uL (1.40-6.50) H 12/10/24 05:39 Lymph # (Auto) 1.66 K/uL (1.20-3.40) 12/10/24 05:39 Grayson # (Auto) 0.98 K/uL (0.11-0.59) H 12/10/24 05:39 Eos # (Auto) 0.00 K/uL (0.00-0.50) 12/10/24 05:39 Baso # (Auto) 0.02 K/uL (0.00-0.20) 12/10/24 05:39 Immature Gran # (Auto) 0.07 K/uL (0.01-0.20) 12/10/24 05:39 Sodium 136 mmol/L (136-145) 12/11/24 07:38 Potassium 4.0 mmol/L (3.5-5.1) 12/11/24 07:38 Chloride 99 mmol/L (98-107) 12/11/24 07:38 Carbon Dioxide 28 mmol/L (21-32) 12/11/24 07:38 Anion Gap 9 (3-11) 12/11/24 07:38 BUN 34 mg/dl (6-23) H D 12/11/24 07:38 Creatinine 3.95 mg/dl (0.6-1.4) H D 12/11/24 07:38 Est Cr Clr Drug Dosing 14.6 ml/min 12/11/24 07:38 eGFR 14.54 12/11/24 07:38 BUN/Creatinine Ratio 8.6 (10-20) L 12/11/24 07:38 Glucose 163 mg/dl (70-99(Fasting)) H 12/11/24 07:38 POC Glucose 160 mg/dl (70-99) H 12/11/24 12:04 Calcium 9.2 mg/dl (8.6-10.3) 12/11/24 07:38 Total Bilirubin 1.0 mg/dl (0.2-1.0) 12/06/24 10:44 AST 29 U/L (13-39) 12/06/24 10:44 ALT 20 U/L (7-52) 12/06/24 10:44 Alkaline Phosphatase 72 U/L (34-104) 12/06/24 10:44 Troponin I High Sens 96.7 pg/ml (0-20) H* 12/07/24 04:06 B-Natriuretic Peptide > 4700 pg/ml (0-100) H 12/06/24 10:44 Total Protein 6.8 gm/dl (6.0-8.3) 12/06/24 10:44 Albumin 3.7 gm/dl (3.4-5.0) 12/06/24 10:44 Globulin 3.1 gm/dl (2.5-4.0) 12/06/24 10:44 Albumin/Globulin Ratio 1.2 (0.9-2) 12/06/24 10:44 Lipase 34 U/L (11-82) 12/06/24 10:44 Nasal Screen MRSA (PCR) Negative (Negative) 12/06/24 Unknown Stl C. cayetanensis PCR Not Detected (NotDetected) 12/07/24 18:57 Stool Rotavirus A PCR Not Detected (NotDetected) 12/07/24 18:57 Stl Adenov F 40/41 PCR Not Detected (NotDetected) 12/07/24 18:57 Stool Astrovirus (PCR) Not Detected (NotDetected) 12/07/24 18:57 Stool Campylobacter PCR Not Detected (NotDetected) 12/07/24 18:57 Stool Cryptosporidium PCR Not Detected (NotDetected) 12/07/24 18:57 Stl E.coli Shiga Tox PCR Not Detected (NotDetected) 12/07/24 18:57 Stl Enterotoxigenic E PCR Not Detected (NotDetected) 12/07/24 18:57 Stool EPEC (PCR) Not Detected (NotDetected) 12/07/24 18:57 Stool EAEC (PCR) Not Detected (NotDetected) 12/07/24 18:57 Stl E. histolytica PCR Not Detected (NotDetected) 12/07/24 18:57 Stool Giardia Lamblia PCR Not Detected (NotDetected) 12/07/24 18:57 Stool Salmonella PCR Not Detected (NotDetected) 12/07/24 18:57 Stool Sapovirus (PCR) Not Detected (NotDetected) 12/07/24 18:57 Stl P. shigelloides PCR Not Detected (NotDetected) 12/07/24 18:57 Stl Shigella/EIEC PCR Not Detected (NotDetected) 12/07/24 18:57 St Y.enterocolitica PCR Not Detected (NotDetected) 12/07/24 18:57 Stool Vibrio (PCR) Not Detected (NotDetected) 12/07/24 18:57 Stl Vibrio cholerae PCR Not Detected (NotDetected) 12/07/24 18:57 Stl Norovirus GI/GII PCR Not Detected (NotDetected) 12/07/24 18:57 Random Vancomycin 17.0 mcg/ml (10-20) 12/10/24 05:39 Impressions Chest X-Ray 12/08/24 11:57 XR chest 1V portable CLINICAL HISTORY: increasing sob COMPARISON STUDY: 12/06/2024 FINDINGS: There is stable aortic valve repair. Stable cardiomegaly with mild pulmonary vascular congestion. Stable hazy opacity at bilateral lung bases with obscuration of the diaphragm. No pneumothorax. IMPRESSION: Stable exam. ACT 112: Negative or not required by law. Electronically signed by: Orion Mills M.D. 12/08/2024 2:34 PM Hospital Course (1) SOB (shortness of breath): (2) Pulmonary vascular congestion: (3) ESRD (end stage renal disease) on dialysis: (4) Diabetes mellitus, type 2: (5) Hyperlipidemia: (6) CKD (chronic kidney disease): Plan Acute Pulmonary Edema-in setting of ESRD H/O recent parainfluenza infection Pneumonia Acute COPD exacerbation Suspect hypoxia/SOB multifactorial in setting of COPD exac, volume overload iso ESRD, CHF exacerbation, recent upper respiratory viral infection, Prolonged bronchitis --Biofire +ve for parainfluenza 4 during recent hospital stay --Nasal MRSA negative --CXR shows stable hazy opacity at b/l lung bases --Continue budesonide and formoterol BID, duoneb, incentive spirometry, flutter --Vancomycin -- Continue Zosyn Evaluated by cardiology; recommend outpatient follow-up Continue dialysis as per nephrology Prednisone decreased to 10 mg once a day PT OT recommends Home Weaned off of supplemental oxygen 2 step: didnt qualify for oxygen Plan to discharge home today Oral candidiasis - Nystatin swish and swallow ESRD on dialysis: -MWF schedule Appreciate nephrology help continue dialysis per nephrology Myocardial injury: -Appears to have chronic elevated troponins -Recent ECHO w/ EF of 50-55%, LV wall motion nl from last admission. Hypertension -continue amlodipine Diabetes mellitus, type II - ISS with accuchecks achs - A1C 6.2 in September 2024 DVT Px: Heparin SQ Code Status DNR/DNI Disposition Home Total Time Total Time Spent Total Time Spent (In Minutes): 54 minutes Discharge Plan Discharge Items Patient Disposition: Home - Home Health Services Reason For Visit: DYSPNEA, ELEVATED TROPONIN Discharge Diagnosis: Acute Pulmonary Edema Parainfluenza infection Pneumonia Acute COPD exacerbation Oral candidiasis Activity: Per Instructions section Exercise/Sports: Gradually increase as tolerated Non-emergency contact: Primary Care Provider Call non-emergency contact if: you have any medication questions, your symptoms worsen, your pain is concerning for you and you have a fever Follow-up/Referrals: Sampson Jimenez [Primary Care Provider] - Diet: Carb Consistent or DM2 and Dialysis Renal Diet Texture: Dental soft (bite-sized) Addtl Attending Provider Instructions: Follow-up with your primary care physician in 1 week Follow-up with your shipping coordinator for dialysis -- Complete the antibiotic course Augmentin and nystatin as prescribed --Complete the prednisone tapering course as prescribed --Your final blood cultures are pending at the time of discharge. Follow-up with your physician for results. Seek immediate medical attention if your symptoms reoccur or worsen Please take all medications as instructed on discharge list below. Please call if you have any questions or problems. You can reach a [facility] hospitalist on duty at [facility] 24 hours a day by calling [phone] Pending Studies at Discharge: Yes Studies:: Blood cultures Stand-Alone Forms: [facility] Health, Smoking Cessation Medications and DC Order Prescriptions: New nystatin 100,000 unit/mL Suspension 5 ml PO QID 7 Days Qty: 140 0RF prednisone 10 mg Tablet 10 mg PO DAILY Qty: 2 0RF amoxicillin-pot clavulanate [Augmentin] 500-125 mg tablet 1 tab PO BID Qty: 8 0RF Continued tamsulosin 0.4 mg capsule 0.4 mg PO HS atorvastatin 40 mg Tablet 40 mg PO QAM finasteride 5 mg Tablet 5 mg PO HS cholecalciferol (vitamin D3) [Vitamin D3] 1,000 unit (25 mcg) Tablet 1,000 unit PO PM aspirin 81 mg Tablet,Delayed Release (Dr/Ec) 81 mg PO QAM pantoprazole 20 mg tablet,delayed release (DR/EC) 20 mg PO QAM albuterol sulfate 90 mcg/actuation HFA aerosol inhaler 2 puff INHALATION QID PRN (Reason: Wheezing) fluticasone furoate-vilanterol [Breo Ellipta] 200-25 mcg/dose Blister With Device 1 inh INHALATION DAILY PRN (Reason: Shortness Of Breath Or Wheezing) citalopram 20 mg tablet 20 mg PO PM Velphoro 500 mg tablet,chewable 500 mg PO TIDM Xphozah 30 mg tablet 30 mg PO BID amlodipine 5 mg tablet 5 mg PO QAM gabapentin 100 mg capsule 100 mg PO DAILY PRN (Reason: NEUROPATHY) Tradjenta 5 mg Tablet 5 mg PO DAILY ipratropium-albuterol 0.5 mg-3 mg(2.5 mg base)/3 mL Solution For Nebulization 3 ml NEB Q4H PRN (Reason: shortness of breath or wheezing) Qty: 90 0RF Discharge Orders: Discharge Order (Routine); Ordered 12/11/24 Ordered By: Delta Larry Admission Data Admit Date/Time: 12/06/24 13:06 Attending Provider: Delta Larry Admit Provider: Jorge Lancaster Primary Care Provider: Sampson Jimenez Other Providers: Sue Crabtree; Marck Dang; Royce Blunt; Juan Luis Porter; Dontrell Rodrigues; Kevin Simon; Enrique Oscar Jr; Juan Manuel Vega; Giselle Allen; Leslie Diego; Jono Perez; Jono Parson; Ronnell Pina; Fabi Liu; Mikhail Cuello; Skylar Hoff; Mikhail Stone; Jaun Brambila; [facility]; Helen Horta.
[2024-12-11 13:06] VITALS: RESP 18
[2024-12-11 13:38] VITALS: PULSE 66; O2SAT 98
[2024-12-12] MEDS ORDERED: EPOETIN ALFA 10,000 UNITS/ML VIAL IV ONE (07:00)
[2024-12-12] MEDS ORDERED: predniSONE 10 MG TABLET PO SCH (09:00)
== END 2024-12-11 16:07 | disposition home health service (06) | DRG 291 ==
LOC: ED 10:25 → SUATTDRO 13:06 → 2N 13:06

== ENCOUNTER 2025-01-03 09:08 | Inpatient (IN) ==
--- OUTSIDE RECORDS SUMMARY | 2025-01-03 09:12 | External Medical Summary | Summary of Care ---
Author Name Unknown Organization [facility] Address [address] [place] [address] Phone [phone] Care Team Providers Care Fitting Supervisor Name Role Phone Unavailable Primary Care Provider Unavailabl e Reason for Referral * Evaluate & Treat - Unlimited Visits (Within 10 days (routine)) - Pending Review Specialty Diagnoses / Procedures Referred By Keira roque Referred To Contact Pulmonary Diseases / Pulmonary Diagnoses Pleural effusion Alexandra Jonas PA-C [address] [place] [address] Phone: tel: fax: Referral ID Status Reason Start Date Expiration Date Visits Requested Visits Authorized [id number] Pending Review Specialty Services Required 01/02/[phone] Question Answer Referral Priority Within 10 days (routine) Where should this appointment be scheduled? External - [facility] Primary Reason for Referral? Other Comments Please evaluate bilateral pleural effusion pt is a dialysis patient but limited fluid removal due to hypotension Reason for Visit * Reason Onset Date Comments Appointment 01/02/2025 Encounter Details Date Type Department Care Team ([facility] Contact Info) Description 01/02/2025 [address]phone [address] [place] [address] Alexandra Jonas PA-C [address] [facility] [place] [phone] Appointment Allergies No known active allergiesdocumented as of this encounter (statuses as of 01/02/2025) Medications aspirin 81 MG chewable tabletIndication s:Type 2 diabetes mellitus with hemoglobin A1c goal of less than 7.5% ([facility]) One chewable by mouth once a day with food 100 Tab 1 05/28/20 17 Active Calcitriol 0.25 MCG Oral Capsule (Rocaltrol) Take 1 Capsule by mouth in the morning. Active Nephrocaps 1 MG Oral CapsuleIndicatio ns:ESRD (end stage renal disease) ([facility]) Take by mouth 1 Capsule in the morning. 90 Capsule 1 06/22/20 22 Active OneTouch Delica Lancets 33GIndications:T ype 2 DM with CKD stage 4 and hypertension ([facility]) TESTING ONCE A DAY. E 11.9 100 Each 3 07/18/20 22 Active Soluble Fiber/Probiotics Oral Tablet ChewableIndicati ons:Diarrhea, unspecified type Take by mouth 1 Tablet in the morning. 90 Tablet 1 08/22/20 22 Active Fluticasone Furoate-Vilanter ol 200-25 MCG/ACT Inhalation Aerosol Powder Breath Activated (BREO ellipta)Indicati ons:Chronic obstructive pulmonary disease ([facility]) INHALE 1 PUFF BY MOUTH IN THE MORNING 60 Each 5 02/20/20 23 Active Albuterol Sulfate HFA 108 (90 Base) MCG/ACT Inhalation Aerosol Solution INHALE 2 PUFFS BY MOUTH EVERY 6 HOURS NEEDED FOR WHEEZING 54 g 3 07/03/20 23 Active OneTouch Verio In Vitro Strip (Glucose Blood)Indication s:Type 2 diabetes mellitus with end-stage renal disease ([facility]) USE ONCE DAILY E11.9 100 Strip 3 08/06/20 23 Active DAPTOmycin IV IV (AMBULATORY) Administer 500 mg intravenously once a day on Sunday, Sunday, and Sunday only. Patient is receiving daptomycin 500 mg on Sunday and Sunday postdialysis; then on 750 mg on Sunday. Active Ondansetron HCl 4 MG Oral TabletIndication s:Epigastric pain Take 1 Tablet by mouth every 6 hours as needed for Nausea. 30 Tablet 10/16/20 23 Active Sevelamer Carbonate 800 MG Oral Tablet (Renvela) TAKE 3 TABLET BY MOUTH THREE TIMES A DAY WITH MEALS AND 2 TABLET TWICE A DAY WITH SNACKS 10/19/20 23 Active Velphoro 500 MG Oral Tablet Chewable (Sucroferric Oxyhydroxide) 1 tablet three times daily with meals 10/19/20 23 Active Citalopram Hydrobromide 40 MG Oral Tablet (CeleXA)Indicati ons:Depression with anxiety TAKE 1 TABLET BY MOUTH EVERY DAY 90 Tablet 1 01/31/20 24 Active Vitamin D3 25 MCG (1000 UT) Oral Capsule (Cholecalciferol )Indications:Vit bauer D deficiency Take 1 Capsule by mouth in the morning. 90 Capsule 3 02/19/20 24 Active Pantoprazole Sodium 20 MG Oral Tablet Delayed Release (Protonix)Indica tions:Epigastric pain TAKE 1 TABLET BY MOUTH EVERY DAY IN THE MORNING 90 Tablet 1 08/13/20 24 Active amLODIPine Besylate 5 MG Oral Tablet (Norvasc)Indicat ions:Primary hypertension Take 1 Tablet by mouth in the morning. Patient needs to scheduled with new PCP for further refills call [phone]. 30 Tablet 12/09/19 25 Active Finasteride 5 MG Oral Tablet (Proscar)Indicat ions:Hypertrophy of prostate without urinary obstruction Take 1 Tablet by mouth in the morning. Patient needs to scheduled with new PCP for further refills call [phone]. 30 Tablet 12/09/19 25 Active Tamsulosin HCl 0.4 MG Oral Capsule (Flomax)Indicati ons:Hypertrophy of prostate without urinary obstruction Take 1 Capsule by mouth in the morning. Patient needs to scheduled with new PCP for further refills call [phone]. 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 [...] as of this encounter (statuses as of 01/02/2025) Immunizations Name Administration Dates Next Due Hepatitis B, 20+ yrs 08/17/2020,04/13/20 20,03/16/2020,02/16 Pneumococcal Conjugate Vacc, 13 Valent (Prevnar) 02/26/2020 Pneumococcal Polysaccharide PPV23 (Pneumovax) 04/22/2020 Seasonal Influenza, High Dos e, Trivalent, PF, IM (Fluzone HD) 10/05/2020,09/05/2020 documented as of this encounter Social History Tobacco Use Types Packs/Day Years Used Date Smoking Tobacco: Every Day Cigarettes 0.5 63.9 Started: 1963 Pipe Smokeless Tobacco: Never Comments:Currently [...] No 04/08/2022 10:00 PM EDT Monika Rich i, RN * Because of a physical, mental, or emotional condition, do you have difficulty doing errands alone such as visiting a doctors office or shopping? (15 years old or older) Answer Date of Assessment Author No 04/08/2022 10:00 PM EDT Monika Rich i, RN documented as of this encounter Mental Status * Because of a physical, mental, or emotional condition, do you have serious difficulty concentrating, remembering, or making decisions? (5 years old or older) Answer Entry Date Author No 04/08/2022 10:00 PM EDT Monika Rich i, RN documented in this encounter Miscellaneous Notes * Telephone Encounter - Alexandra Jonas PA-C - 01/02/2025 1:05 PM EST Spoke with dialysis nurse staff to ensure patient is aware: -Stop Norvasc (per nursing staff patient currently taking) -Continue with Xphozah post dialysis tx -Remid of Cardiology appt for imaging in 1 month ( was discussed with patient at time of dialysis ) -Pulmonary referral placed to evaluate pleural effusion noted with most recent labs and concern with additional fluid removal during dialysis due to hypotension Nursing staff spoke with patient and daughter regarding above Alexandra Jonas PA-C documented in this encounter Plan of Treatment Scheduled Procedures Name Priority Associated Diagnoses Date/Ti me COLONOSCOPY FLEXIBLE PROXIMA L DIAGNOSTIC Recall History of colonic polyps Scheduled Referrals Name Type Priority Associated Diagnoses Orde r Schedule PULMONARY REFERRAL OP Referral Within 10 days (routine) Pleural effusion Ordered: 01/02/2025 Health Maintenance Due Date Last Done Comments Alpha-1 Antitrypsin 1963 O2 ASSESSMENT COMPLETED IN PAST YEAR FOR COPD 1963 Zoster Vaccines (1 of 2) 1993 DISCUSS TOBACCO CESSATION (REFER TO SMARTSET #3291) 06/25/2016 06/25/2015 Depression Monitoring 2021 02/02/2020 HbA1c 06/27/2023 12/28/2022, 04/0 11/2021, 05/02/2021, Additional history exists Diabetic Eye Exam 11/16/2023 11/16/2022, , 01/01/2019, Additional history exists Colonoscopy 01/05/2024 01/04/2023, 12/07/2020, 10/13/2020, Additional history exists Diabetic Foot Exam 03/29/2024 03/29/2023, 0 05/30/2022, 05/02/2021, Additional history exists COVID-19 Vaccine ( - 2023- season) 2024 Influenza Vaccine (FLU shot) (#1) [...] on patient's age to complete this topic Meningitis B Vaccine (Bexsero/Trumemba) Aged Out No longer eligible based on patient's age to complete this topic documented as of this encounter Medical Devices Implanted Type Area Spring Inspector Device Identifier Shelf Expiration Date Model / Serial / Lot Clip Quick 2.8mm 230cm - [id number] Implanted:Qty: 2 on 08/19/2019 by Silvia Beaulieu MD at OR [facility] [employer] 03/04/2022 [id number] / / Lead Tempo Temp Pacing - [id number] Implanted:Qty: 1 on 02/16/2022 by Dalton Moulton MD at [facility] [employer] [id number] 11/29/2023 [id number] / / [id number] Valve Valentina 3 Ultra 26mm - [id number] Implanted:Qty: 1 on 02/17/2022 by Dalton Moulton MD at [facility] [employer] [id number] 10/19/2022 [id number] / / documented as of this encounter Visit Diagnoses Diagnosis Pleural effusion- Primary Unspecified pleural effusion documented in this encounter Advance Directives * [...] Agents on File Name Relationship Healthcare Agent [facility] p Communication Krystal Medina Adult Child Health Care Agent
--- NOTE | 2025-01-03 09:28 | Emergency Department Note ---
Impression & Plan Abdominal pain, CKD (chronic kidney disease), Pneumonia, Pulmonary edema ED Provider Note ED Provider Note NAME: FERNANDA FLORES AGE:79 SEX: Male : 1945 ARRIVES VIA: EMS INFORMANT: Patient ED PROVIDER(s): Cecilia Lala DO CHIEF COMPLAINT: Abdominal pain HPI: This is an 79-year-old male brought in by EMS due to concern for "abdominal burning". Patient states he has been having abdominal pain for the last 2 weeks. He was seen and evaluated here earlier in this week and was discharged home. Patient states no explanation of his pain was given and no additional medications prescribed. Patient denies any recent change in diet. He states he is nauseated but has not had any vomiting. No change in bowel movements. He denies fevers or chills or any known sick contact. PAST MEDICAL HISTORY:See Below PAST SURGICAL HISTORY:See Below FAMILY HISTORY:See Below SOCIAL HISTORY:See Below HOME MEDICATIONS:See Below ALLERGIES:See Below VITALS:See Below PHYSICAL EXAMINATION: GENERAL: alert, unwell appearing, well nourished, no distress, non-toxic EYE EXAM: normal conjunctiva, PERRL and EOM's grossly intact OROPHARYNX: no exudate, no erythema, lips, buccal mucosa, and tongue normal and mucous membranes are moist NECK: supple, no nuchal rigidity, no adenopathy, non-tender LUNGS: Clear to auscultation. Normal chest wall mechanics, no r/r, scattered expiratory wheeze bilaterally HEART: no murmurs, S1 normal and S2 normal ABDOMEN: abdomen soft, non-tender, normo-active bowel sounds, no masses, no rebound or guarding. BACK: Back is symmetrical on inspection and there is no deformity, no midline tenderness, no CVA tenderness. SKIN: no rashes, petechiae, orbruising UPPER EXTREMITIES: upper extremities are grossly normal. FROM, nml pulses b/l. LOWER EXTREMITIES: No pitting edema. FROM, nml pulses b/l. NEURO EXAM: Normal sensorium, cranial nerves II-XII grossly intact, normal speech, no facial droop,nogross weakness of arms, no gross weakness of legs. Gross sensation intact. No ataxia. Vital Signs: reviewed and remarkable Differential Diagnosis: GERD, PUD, SBO, GI bleed, bowel obstruction, DKA, UTI, constipation, medication ADR, ACS, AAA, as well as others were considered MEDICAL DECISION MAKING: This is an 79-year-old male brought in by EMS due to concern for "burning in the stomach". Patient afebrile and vital signs stable on arrival. Labs drawn and sent, IV established, EKG performed at bedside interpreted by me and patient monitored on telemetry. Patient given 500 mL bolus of IV fluids as well as IV Protonix. He was given a DuoNeb treatment as well due to bilateral wheezing and history of COPD and ongoing tobacco abuse. Patient did report some improvement. After review of prior discharge summary as well as prior evaluation this past week, patient sent for CT of the chest as well as CT of the abdomen and pelvis. CT imaging suggestive of pneumonia. Patient without prior history of dysphagia or aspiration. Patient denies any recent pneumonia despite history of COPD. Patient noted to be hypoxic with any movement or increased exertion. Patient does not have oxygen at home. Due to concern for hypoxia and likely pneumonia as well as complicated past medical history, case discussed with the hospitalist team for additional evaluation and management. UA still pending at that time as patient states he does make urine although infrequently. Patient's oxygenation maintained on 1 to 2 L via nasal cannula at bedside. VBG and procalcitonin added. Patient started on IV Rocephin and doxycycline. Patient with additional pulmonary edema although likely chronic and related to patient's underlying chronic kidney disease as he is not due to be dialyzed again until Sunday. No evidence of bacteremia/sepsis at this time. Consultation(s): 1425: Discussed with [facility] hospitalist team for additional evaluation and mgmt. ER Treatment Provided: See below Diagnostics Interpreted By Me: -ECG: Normal sinus at 85, left axis, right bundle branch block, nonspecific ST/T wave changes, with PVCs noted, unchanged compared to 12/29/2024 -Cardiac Monitoring: An order was placed for continuous cardiac monitoring. The monitor shows a rate of 86 with normal sinus rhythm. -Laboratory studies: As stated above and show below. -Imaging studies: CT chest: pna Triage Nursing Note Reviewed Prior/Outside Records Reviewed -discharge summary from 12/09/2024 reviewed Past Med/Surg History Problem List (Updated 01/03/25 @ 18:00 by Cecilia Lala, ) Pulmonary edema (Acute) Pneumonia (Acute) CKD (chronic kidney disease) (Acute) Abdominal pain (Acute) Prosthetic aortic valve stenosis Abdominal pain (Acute) Constipation (Acute) Bronchospasm COPD (chronic obstructive pulmonary disease) Aortic valve stenosis determined by imaging Chest pain (Acute) Shortness of breath (Acute) Acute respiratory failure CAP (community acquired pneumonia) Myocardial injury Parainfluenza infection Tobacco abuse (Acute) Acute exacerbation of chronic obstructive pulmonary disease (Acute) Acute dyspnea (Acute) End-stage renal disease on hemodialysis (Acute) Volume overload (Acute) SOB (shortness of breath) Pulmonary vascular congestion (Acute) ESRD on dialysis (Acute) CKD (chronic kidney disease) (Acute) Tobacco abuse (Acute) Hypertension (Chronic) CKD (chronic kidney disease), stage IV Gastritis CHF (congestive heart failure) Acute respiratory failure with hypoxia Renal failure (Acute) Severe calcific aortic valve stenosis Peritoneal dialysis catheter in situ since removed Tobacco use ESRD (end stage renal disease) on dialysis (Acute) M/W/F > [facility] in [place] Hyperlipidemia BPH (benign prostatic hyperplasia) Diabetes mellitus, type 2 NIDDM Chronic anemia Medical History Open wound of right lower leg Open wound of right heel Non-ST elevation [place] (NSTEMI) Traumatic open wound of left lower leg Gram-positive bacteremia Severe sepsis Bacteremia due to Enterococcus Acute hyponatremia Elevated troponin I level Dialysis AV fistula malfunction Encounter for pre-operative examination Clostridioides difficile diarrhea SBO (small bowel obstruction) SBO (small bowel obstruction) Epigastric abdominal pain CHF (congestive heart failure) DVT prophylaxis CKD (chronic kidney disease) stage 5, GFR less than 15 ml/min follows with Dr. Jay Angina pectoris Encounter for pre-operative examination Diabetic foot ulcer Dialysis patient Tobacco abuse PAD (peripheral artery disease) CHF (congestive heart failure) AV fistula left wrist Osteoarthritis Anxiety and depression Hypertension Surgical History S/P cholecystectomy S/P TAVR (transcatheter aortic valve replacement) (2021) SBO (small bowel obstruction) with surgical intervention History of esophagogastroduodenoscopy (EGD) History of colonoscopy History of cholecystectomy History of tooth extraction History of cataract surgery RT/LEFT History of procedure for peripheral vascular disease LEFT LEG (STENT PLACED) Cardiac murmur no cardio Family History Brother Cancer Social History Smoking Status: Current every day smoker Tobacco Type: Cigarettes Age Started Using Tobacco: 16; packs per day: 0.5; Cigarettes Per Day: 10; Second Hand Exposure: No; Do You Dip or Chew Tobacco: No; Tobacco Cessation Education Requested by Patient: No Hx Alcohol Use: Yes Alcohol type: beer Hx Substance Use: No Preferred Language: Amharic Communication Ability: Effective Visual Impairment: No Limitations Hearing Ability: Hard of Hearing Project Management Intern Required: No Beliefs That Will Affect Care: None marital status: Single Current Living Situation: Alone Current Living Situation Comment: alone in an apartment current occupational status: retired 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 Other Information That Helps Us Care for You: No Feels Safe at Home: Yes Safety Concerns: Feels Safe At This Time Diet: regular during the past year weight has: remained stable Assistive Devices: Oxygen - Continuous and Walker Allergies Allergies Allergy/AdvReac Type Severity Reaction Status Date / Time No Known Allergies Allergy Verified 12/30/24 15:59 Home Meds Home Medications Medication Instructions Recorded Confirmed atorvastatin 40 mg tablet 40 mg PO UD 07/31/19 01/03/25 cholecalciferol (vitamin D3) 25 1,000 unit PO PM 07/31/19 01/03/25 mcg (1,000 unit) tablet (Vitamin D3) finasteride 5 mg tablet 5 mg PO HS 07/31/19 01/03/25 aspirin 81 mg tablet,delayed 81 mg PO QAM 01/06/20 01/03/25 release albuterol sulfate 90 mcg/actuation 2 puff inhalation QID PRN Wheezing 04/09/24 01/03/25 aerosol inhaler fluticasone furoate 200 1 inh inhalation UD PRN Shortness 04/09/24 01/03/25 mcg-vilanterol 25 mcg/dose Of Breath Or Wheezing inhalation powder (Breo Ellipta) tamsulosin 0.4 mg capsule 0.4 mg PO HS 08/21/24 01/03/25 amlodipine 5 mg tablet 5 mg PO QAM 09/24/24 01/03/25 citalopram 20 mg tablet 20 mg PO UD 09/24/24 01/03/25 gabapentin 100 mg capsule 100 mg PO DAILY PRN NEUROPATHY 09/24/24 01/03/25 sucroferric oxyhydroxide 500 mg 500 mg PO TIDM 09/24/24 01/03/25 chewable tablet (Velphoro) linagliptin 5 mg tablet (Tradjenta) 5 mg PO UD 11/24/24 01/03/25 fluticasone furoate 100 1 inh inhalation UD 01/03/25 01/03/25 mcg-vilanterol 25 mcg/dose inhalation powder (Breo Ellipta) Previous Rx's Medication Instructions Recorded ipratropium 0.5 mg-albuterol 3 mg 3 ml NEB Q4H PRN shortness of 11/27/24 (2.5 mg base)/3 mL nebulization breath or wheezing #90 mL soln Results & Data (ED) Vital Signs Vital Signs - 24 hr 01/03/25 09:17 01/03/25 09:27 01/03/25 09:27 Temperature 36.6 C Temperature Source Oral Pulse Rate 83 83 Pulse Rate [Apical] 83 Pulse Rate [Exercises] Pulse Rate [Resting] Pulse Rate from SpO2 Sensor Pulse Rhythm Regular Pulse Rhythm [Apical] Regular Pulse Strength Normal Pulse Strength [Apical] Normal Respiratory Rate 14 14 Respiratory Rate [Exercises] Respiratory Rate [Resting] Respiratory Effort / Characteristics Non-Labored Spontaneous Non-Labored Spontaneous Respiratory Depth Normal Normal Respiratory Pattern Regular Regular Blood Pressure 95/71 L Blood Pressure [Right Arm] 95/71 L Blood Pressure Mean 79 Blood Pressure Mean [Right Arm] 79 Blood Pressure Position Lying Pulse Oximetry 95 96 Pulse Oximetry [Exercises] Pulse Oximetry [Resting] Oxygen Delivery Method Room Air Room Air Oxygen Flow Rate Sepsis Recent Fever Within 48 Hours No Sepsis New/Unexplained Change in Mental Status No Sepsis Action Taken by Nursing No Action Required 01/03/25 09:33 01/03/25 10:06 01/03/25 10:30 Temperature Temperature Source Pulse Rate 80 83 79 Pulse Rate [Apical] Pulse Rate [Exercises] Pulse Rate [Resting] Pulse Rate from SpO2 Sensor 80 82 78 Pulse Rhythm Pulse Rhythm [Apical] Pulse Strength Pulse Strength [Apical] Respiratory Rate 24 17 26 H Respiratory Rate [Exercises] Respiratory Rate [Resting] Respiratory Effort / Characteristics Respiratory Depth Respiratory Pattern Blood Pressure 133/68 113/78 114/67 Blood Pressure [Right Arm] Blood Pressure Mean 89 89 82 Blood Pressure Mean [Right Arm] Blood Pressure Position Pulse Oximetry 98 100 100 Pulse Oximetry [Exercises] Pulse Oximetry [Resting] Oxygen Delivery Method Nasal Cannula Nasal Cannula Nasal Cannula Oxygen Flow Rate 2 2 2 Sepsis Recent Fever Within 48 Hours Sepsis New/Unexplained Change in Mental Status Sepsis Action Taken by Nursing 01/03/25 11:15 01/03/25 13:19 01/03/25 13:23 Temperature Temperature Source Pulse Rate 82 81 Pulse Rate [Apical] Pulse Rate [Exercises] 105 H Pulse Rate [Resting] 98 H Pulse Rate from SpO2 Sensor 85 Pulse Rhythm Pulse Rhythm [Apical] Pulse Strength Pulse Strength [Apical] Respiratory Rate 18 Respiratory Rate [Exercises] 36 H Respiratory Rate [Resting] 26 H Respiratory Effort / Characteristics Respiratory Depth Respiratory Pattern Blood Pressure 120/75 Blood Pressure [Right Arm] Blood Pressure Mean 90 Blood Pressure Mean [Right Arm] Blood Pressure Position Pulse Oximetry 97 Pulse Oximetry [Exercises] 86 L Pulse Oximetry [Resting] 90 Oxygen Delivery Method Nasal Cannula Room Air Oxygen Flow Rate 2 Sepsis Recent Fever Within 48 Hours Sepsis New/Unexplained Change in Mental Status Sepsis Action Taken by Nursing Laboratory Data 01/03/25 09:39 01/03/25 09:39 Lab Results 01/03/25 01/03/25 01/03/25 Range/Units 09:39 09:42 12:11 WBC 6.61 (4.8-10.8) K/ul RBC 3.55 L (4.70-6.10) M/uL Hgb 11.0 L (14.0-18.0) g/dl Hct 35.3 L (42.0-52.0) % MCV 99.4 (80.0-100.0) fL MCH 31.0 (25.0-34.0) pg MCHC 31.2 L (32.0-36.0) g/dL RDW Std Deviation 65.4 H (36.4-46.3) fL RDW Coeff of Danny 17.9 H (11.5-14.5) % Plt Count 180 (130-400) K/uL MPV 11.7 (9.4-12.4) fL Immature Gran % (Auto) 0.6 % Neut % (Auto) 67.3 % Lymph % (Auto) 19.4 % Gordon % (Auto) 12.0 % Eos % (Auto) 0.2 % Baso % (Auto) 0.5 % Neut # (Auto) 4.46 (1.40-6.50) K/uL Lymph # (Auto) 1.28 (1.20-3.40) K/uL Gordon # (Auto) 0.79 H (0.11-0.59) K/uL Eos # (Auto) 0.01 (0.00-0.50) K/uL Baso # (Auto) 0.03 (0.00-0.20) K/uL Immature Gran # (Auto) 0.04 (0.01-0.20) K/uL Absolute Nucleated RBC 0.05 (0.00-0.12) K/uL Nucleated RBC % (auto) 0.8 % PT 12.9 H (9.0-12.0) Seconds INR 1.2 H (0.9-1.1) VBG pH (7.36-7.41) VBG pCO2 (38-50) mmHg VBG pO2 mmHg VBG HCO3 mmol/L VBG O2 Saturation % VBG Base Excess mEq/L Sodium 141 (136-145) mmol/L Potassium 3.9 (3.5-5.1) mmol/L Chloride 97 L (98-107) mmol/L Carbon Dioxide 32 (21-32) mmol/L Anion Gap 12 H (3-11) BUN 23 (6-23) mg/dl Creatinine 3.36 H (0.6-1.4) mg/dl Est Cr Clr Drug Dosing 17.2 ml/min eGFR 17.66 BUN/Creatinine Ratio 6.8 L (10-20) Glucose 184 H (70-99(Fasting)) mg/dl Lactate 2.1 H* 1.8 (0.4-2.0) mmol/L Calcium 9.8 (8.6-10.3) mg/dl Magnesium 2.0 (1.7-2.4) mg/dl Total Bilirubin 1.0 (0.2-1.0) mg/dl AST 28 (13-39) U/L ALT 23 (7-52) U/L Alkaline Phosphatase 98 (34-104) U/L Troponin I High Sens 101.9 H* (0-20) pg/ml Total Protein 6.5 (6.0-8.3) gm/dl Albumin 3.5 (3.4-5.0) gm/dl Globulin 3.0 (2.5-4.0) gm/dl Albumin/Globulin Ratio 1.2 (0.9-2) Lipase 8 L (11-82) U/L Procalcitonin 0.43 (0-0.5) ng/ml TSH 2.000 (0.300-4.500) uIu/ml Adenovirus (PCR) Not Detected (NotDetected) B. pertussis DNA (PCR) Not Detected (NotDetected) B.parapertussis DNA PCR Not Detected (NotDetected) C. pneumoniae DNA (PCR) Not Detected (NotDetected) Coronavirus OC43 (PCR) Not Detected (NotDetected) Coronavirus HKU1 (PCR) Not Detected (NotDetected) Coronavirus 229E (PCR) Not Detected (NotDetected) SARS-CoV-2 (PCR) Not Detected (NotDetected) Coronavirus NL63 (PCR) Not Detected (NotDetected) Human Metapneumovir PCR Not Detected (NotDetected) Influenza Type A (PCR) Not Detected (NotDetected) Influenza Type B (PCR) Not Detected (NotDetected) M. pneumoniae (PCR) Not Detected (NotDetected) Parainfluenza 1 (PCR) Not Detected (NotDetected) Parainfluenza 2 (PCR) Not Detected (NotDetected) Parainfluenza 3 (PCR) Not Detected (NotDetected) Parainfluenza 4 (PCR) Not Detected (NotDetected) RSV (PCR) Not Detected (NotDetected) Entero/Rhino (PCR) Not Detected (NotDetected) 01/03/25 01/03/25 Range/Units 14:15 14:20 WBC (4.8-10.8) K/ul RBC (4.70-6.10) M/uL Hgb (14.0-18.0) g/dl Hct (42.0-52.0) % MCV (80.0-100.0) fL MCH (25.0-34.0) pg MCHC (32.0-36.0) g/dL RDW Std Deviation (36.4-46.3) fL RDW Coeff of Danny (11.5-14.5) % Plt Count (130-400) K/uL MPV (9.4-12.4) fL Immature Gran % (Auto) % Neut % (Auto) % Lymph % (Auto) % Gordon % (Auto) % Eos % (Auto) % Baso % (Auto) % Neut # (Auto) (1.40-6.50) K/uL Lymph # (Auto) (1.20-3.40) K/uL Gordon # (Auto) (0.11-0.59) K/uL Eos # (Auto) (0.00-0.50) K/uL Baso # (Auto) (0.00-0.20) K/uL Immature Gran # (Auto) (0.01-0.20) K/uL Absolute Nucleated RBC (0.00-0.12) K/uL Nucleated RBC % (auto) % PT (9.0-12.0) Seconds INR (0.9-1.1) VBG pH 7.50 H (7.36-7.41) VBG pCO2 43 (38-50) mmHg VBG pO2 28 mmHg VBG HCO3 34 mmol/L VBG O2 Saturation < 60.0 % VBG Base Excess 9.2 mEq/L Sodium (136-145) mmol/L Potassium (3.5-5.1) mmol/L Chloride (98-107) mmol/L Carbon Dioxide (21-32) mmol/L Anion Gap (3-11) BUN (6-23) mg/dl Creatinine (0.6-1.4) mg/dl Est Cr Clr Drug Dosing ml/min eGFR BUN/Creatinine Ratio (10-20) Glucose (70-99(Fasting)) mg/dl Lactate (0.4-2.0) mmol/L Calcium (8.6-10.3) mg/dl Magnesium (1.7-2.4) mg/dl Total Bilirubin (0.2-1.0) mg/dl AST (13-39) U/L ALT (7-52) U/L Alkaline Phosphatase (34-104) U/L Troponin I High Sens 88.3 H* D (0-20) pg/ml Total Protein (6.0-8.3) gm/dl Albumin (3.4-5.0) gm/dl Globulin (2.5-4.0) gm/dl Albumin/Globulin Ratio (0.9-2) Lipase (11-82) U/L Procalcitonin (0-0.5) ng/ml TSH (0.300-4.500) uIu/ml Adenovirus (PCR) (NotDetected) B. pertussis DNA (PCR) (NotDetected) B.parapertussis DNA PCR (NotDetected) C. pneumoniae DNA (PCR) (NotDetected) Coronavirus OC43 (PCR) (NotDetected) Coronavirus HKU1 (PCR) (NotDetected) Coronavirus 229E (PCR) (NotDetected) SARS-CoV-2 (PCR) (NotDetected) Coronavirus NL63 (PCR) (NotDetected) Human Metapneumovir PCR (NotDetected) Influenza Type A (PCR) (NotDetected) Influenza Type B (PCR) (NotDetected) M. pneumoniae (PCR) (NotDetected) Parainfluenza 1 (PCR) (NotDetected) Parainfluenza 2 (PCR) (NotDetected) Parainfluenza 3 (PCR) (NotDetected) Parainfluenza 4 (PCR) (NotDetected) RSV (PCR) (NotDetected) Entero/Rhino (PCR) (NotDetected) Administered Medications Atorvastatin Calcium (Atorvastatin 40 Mg Tab) 40 mg PO QAM [facility] Stop: 02/02/25 16:15 Last Admin: 01/03/25 17:44 Dose: 40 mg Documented By: MELISSA Enoxaparin Sodium (Enoxaparin Inj 30 Mg/0.3 Ml Syr) 30 mg SQ Q24H RANDY Stop: 02/02/25 15:29 Last Admin: 01/03/25 16:18 Dose: 30 mg Documented By: MELISSA Miscellaneous (Velphoro 500 Mg - Order Awaiting Action) 1 each N/A QS RANDY Stop: 02/02/25 16:59 Last Admin: 01/03/25 17:36 Dose: Not Given Documented By: MELISSA Nicotine (Nicotine 21 Mg/24 Hr Tdsy) 1 patch TD QAM RANDY Stop: 02/02/25 15:29 Last Admin: 01/03/25 16:18 Dose: 1 patch Documented By: MELISSA Discontinued Medications Albuterol (Albut/Ipratrop 3mg/0.5mg Neb 3 Ml Vial) 3 ml NEB NOW STA; Protocol Stop: 01/03/25 09:29 Last Admin: 01/03/25 10:05 Dose: 3 ml Documented By: SRL Furosemide (Furosemide 40 Mg/4 Ml Vial) 40 mg IV ONE ONE Stop: 01/03/25 15:15 Last Admin: 01/03/25 15:32 Dose: 40 mg Documented By: CARLY Sodium Chloride (Nss) 1,000 mls @ 125 mls/hr IV .Q8H RANDY Stop: 01/04/25 09:29 Last Infusion: 01/03/25 12:02 Dose: Infused Documented By: L Admin: 01/03/25 10:05 Dose: 125 mls/hr Documented By: SRL Pantoprazole Sodium (Protonix) 40 mg in 10 mls @ 5 mls/min IV NOW ONE Stop: 01/03/25 09:21 Last Admin: 01/03/25 10:05 Dose: 5 mls/min Documented By: SRL Sodium Chloride (Nss) 500 mls @ 999 mls/hr IV .Q31M ONE Stop: 01/03/25 10:18 Last Infusion: 01/03/25 10:38 Dose: Infused Documented By: L Admin: 01/03/25 10:05 Dose: 999 mls/hr Documented By: SRL Ceftriaxone Sodium (Rocephin) 2,000 mg in 50 mls @ 100 mls/hr IV NOW STA Stop: 01/03/25 14:11 Last Infusion: 01/03/25 14:57 Dose: Infused Documented By: Admin: 01/03/25 14:30 Dose: 100 mls/hr Documented By: SRL Doxycycline Hyclate 100 mg/ (Dextrose) 100 mls @ 50 mls/hr IV NOW STA Stop: 01/03/25 15:41 Last Infusion: 01/03/25 17:36 Dose: Infused Documented By: Admin: 01/03/25 14:44 Dose: 50 mls/hr Documented By: SRL Methylprednisolone (Methylprednisolone 125 Mg/2 Ml Vial) 125 mg IV NOW STA Stop: 01/03/25 15:12 Last Admin: 01/03/25 15:32 Dose: 125 mg Documented By: [facility] Imaging Data Radiologist's Impression: Abdomen/Pelvis CT 01/03/25 11:56 CT OF THE ABDOMEN AND PELVIS WITHOUT CONTRAST CLINICAL HISTORY: Abdominal pain. COMPARISON STUDY: CT of the abdomen and pelvis December 29, 2024. TECHNIQUE: Axial images of the abdomen and pelvis were obtained without IV contrast. Images were reviewed in the axial, sagittal, and coronal planes. Automated exposure control was utilized for the study. A dose lowering technique was utilized adhering to the principles of ALARA. FINDINGS: Moderate right and small left pleural effusions and pulmonary edema are better depicted on the chest CT which will be reported separately. No pneumatosis, free air or portal venous gas is present. Mild biliary ductal dilatation remains unchanged and likely related to cholecystectomy. No hepatic lesions are identified on unenhanced exam. A small amount of perihepatic ascites is present. Left adrenal nodularity is unchanged from earlier exams. This is likely benign. Spleen and pancreas are unremarkable. Both kidneys are markedly atrophic. This is unchanged. There are numerous bilateral renal calculi. There are no ureteral calculi. There is no hydronephrosis. Numerous bilateral renal lesions are suboptimally assessed on unenhanced exam. The water attenuation lesions favor cysts. The hyperdense lesions are nonspecific but may represent proteinaceous cysts. There is no evidence for a bowel obstruction. No abdominal or pelvic lymphadenopathy is present. This extensive aortoiliac atherosclerotic plaque. No lymphadenopathy is present. There are no fluid collections. No acute fractures within the lumbar spine the pelvis or hips. IMPRESSION: 1. No bowel obstruction. No bowel wall thickening on unenhanced exam. 2. Pulmonary edema with moderate right and small left pleural effusions, better depicted on the chest CT which will be reported separately. 3. Trace abdominal ascites. 4. Bilateral nephrolithiasis. No ureteral calculi. No hydronephrosis. ACT 112: Negative or not required by law. Electronically signed by: Osito Zambrano M.D. 01/03/2025 12:[address] 01/03/25 11:56 CT OF THE CHEST WITHOUT IV CONTRAST CLINICAL HISTORY: Abdominal pain. COMPARISON STUDY: Chest CT September 25, 2024. Chest radiograph December 08, 2024. CT DOSE: 1447.6 mGy.cm TECHNIQUE: Axial images of the chest were obtained without IV contrast. Images were reviewed in the axial, sagittal, and coronal planes. IV contrast was not administered for this examination. Automated exposure control was utilized for the study. A dose lowering technique was utilized adhering to the principles of ALARA. FINDINGS: Subcutaneous lesions of the right shoulder are unchanged. These favor sebaceous cysts. Prominent mediastinal and bilateral hilar lymph nodes are present. There is a prosthetic aortic valve. The heart is moderately enlarged. Extensive coronary artery calcification is present. There is no pericardial effusion. Moderate right and small left pleural effusions have increased in size since CT of September 25, 2024. Interlobular septal thickening has increased as well. There are groundglass opacities within the lungs. A branching irregular 2.1 cm right upper lobe focus on image 109 of [address] has developed since prior CT. There are moderate secretions within the distal trachea and left mainstem bronchus. There are also mild secretions within the bronchus intermedius. Lungs are suboptimally assessed due to respiratory motion. IMPRESSION: 1. Cardiomegaly with interstitial pulmonary edema. Moderate right and small left pleural effusions. 2. 2.1 cm branching irregular focus within the right lobe which is new since CT of September 25, 2024. Given interval development, this favors pneumonia or aspiration pneumonitis. A chest CT in 3 months to ensure resolution is recommended. 3. Moderate secretions within the airways, as above. 4. Cardiomegaly and extensive coronary artery calcification. 5. Bilateral lower lobe groundglass opacities which could reflect atelectasis, pneumonia or alveolar pulmonary edema. ACT 112: Negative or not required by law. Electronically signed by: Osito Zambrano M.D. 01/03/2025 12:40 PM Discharge Plan Visit Data Chief Complaint: Abdominal Pain Stated Complaint: BURNING SENSATION IN STOMACH ED Provider: Cecilia Lala Discharge Problem: Abdominal pain, CKD (chronic kidney disease), Pneumonia, Pulmonary edema Patient Disposition: Admitted As Inpatient Discharge Instructions Interventions: ED Discharge Assessment Last Done: 01/03/25 15:26
[2025-01-03 10:03] LABS: Basophils # (auto) 0.03 K/uL (0.00-0.20); Basophils % (auto) 0.5 %; Eosinophils # (auto) 0.01 K/uL (0.00-0.50); Eosinophils % (auto) 0.2 %; Hematocrit (blood only) 35.3 % (42.0-52.0); Immature Granulocytes # (auto) 0.04 K/uL (0.01-0.20); Immature Granulocytes % (auto) 0.6 %; Lymphocytes # (auto) 1.28 K/uL (1.20-3.40); Lymphocytes % (auto) 19.4 %; Mean Corpuscular Hgb Conc 31.2 g/dL (32.0-36.0); Mean Corpuscular Volume 99.4 fL (80.0-100.0); Mean Platelet Volume 11.7 fL (9.4-12.4); Monocytes # (auto) 0.79 K/uL (0.11-0.59); Neutrophils # (auto) 4.46 K/uL (1.40-6.50); Neutrophils % (auto) 67.3 %; Nucleated RBC # (auto) 0.05 K/uL (0.00-0.12); Nucleated RBC % (auto) 0.8 %; Platelet Count 180 K/uL (130-400); RDW Coefficient of Variation 17.9 % (11.5-14.5); RDW Standard Deviation 65.4 fL (36.4-46.3); Red Blood Count 3.55 M/uL (4.70-6.10); White Blood Count 6.61 K/ul (4.8-10.8)
[2025-01-03] MEDS: PANTOprazole 40 MG/10 ML SYR IV ONE (10:05)
[2025-01-03] MEDS: SODIUM CHLORIDE 0.9% 1,000 ML IV SCH (10:05)
[2025-01-03] MEDS: ALBUT/IPRATROP 3MG/0.5MG NEB 3 ML VIAL NEB STA (10:05)
[2025-01-03] MEDS: SODIUM CHLORIDE 0.9% 500 ML IV ONE (10:05)
[2025-01-03 10:29] LABS: Albumin Globulin Ratio 1.2 (0.9-2); Albumin Level 3.5 gm/dl (3.4-5.0); BUN Creatinine Ratio 6.8 (10-20); Calcium 9.8 mg/dl (8.6-10.3); Creatinine Clr Calc Pharmacy 17.2 ml/min; Potassium 3.9 mmol/L (3.5-5.1); Total Protein 6.5 gm/dl (6.0-8.3)
[2025-01-03 10:33] LABS: INR 1.2 (0.9-1.1); Prothrombin Time 12.9 Seconds (9.0-12.0)
[2025-01-03 10:38] LABS: Troponin I High Sensitivity 101.9 pg/ml (0-20)
[2025-01-03 11:08] LABS: Adenovirus PCR Not Detected (NotDetected); Bordetella parapertussis PCR Not Detected (NotDetected); Bordetella pertussis PCR Not Detected (NotDetected); Chlamydia pneumoniae PCR Not Detected (NotDetected); Coronavirus 229E PCR Not Detected (NotDetected); Coronavirus CoV-2 (COVID19)PCR Not Detected (NotDetected); Coronavirus HKU1 PCR Not Detected (NotDetected); Coronavirus NL63 PCR Not Detected (NotDetected); Coronavirus OC43PCR Not Detected (NotDetected); Human Metapneumovirus PCR Not Detected (NotDetected); Influenza A PCR Not Detected (NotDetected); Influenza B PCR Not Detected (NotDetected); Mycoplasma pneumoniae PCR Not Detected (NotDetected); Parainfluenza Virus 1 PCR Not Detected (NotDetected); Parainfluenza Virus 2 PCR Not Detected (NotDetected); Parainfluenza Virus 3 PCR Not Detected (NotDetected); Parainfluenza Virus 4 PCR Not Detected (NotDetected); Respiratory Syncytial VirusPCR Not Detected (NotDetected); Rhinovirus/Enterovirus PCR Not Detected (NotDetected)
--- NOTE | 2025-01-03 12:42 | CT Scan Report ---
CT OF THE CHEST WITHOUT IV CONTRAST CLINICAL HISTORY: Abdominal pain. COMPARISON STUDY: Chest CT September 25, 2024. Chest radiograph December 08, 2024. CT DOSE: 1447.6 mGy.cm TECHNIQUE: Axial images of the chest were obtained without IV contrast. Images were reviewed in the axial, sagittal, and coronal planes. IV contrast was not administered for this examination. Automat ed exposure control was utilized for the study. A dose lowering technique was utilized adhering to t he principles of ALARA. FINDINGS: Subcutaneous lesions of the right shoulder are unchanged. These favor sebaceous cysts. Pro minent mediastinal and bilateral hilar lymph nodes are present. There is a prosthetic aortic valve. T he heart is moderately enlarged. Extensive coronary artery calcification is present. There is no damian cardial effusion. Moderate right and small left pleural effusions have increased in size since CT of September 25, 2024. Interlobular septal thickening has increased as well. There are groundglass opacit ies within the lungs. A branching irregular 2.1 cm right upper lobe focus on image 109 of 253 has dev eloped since prior CT. There are moderate secretions within the distal trachea and left mainstem bron chus. There are also mild secretions within the bronchus intermedius. Lungs are suboptimally assessed due to respiratory motion. IMPRESSION: 1. Cardiomegaly with interstitial pulmonary edema. Moderate right and small left pleural effusions. 2. 2.1 cm branching irregular focus within the right lobe which is new since CT of September 25, 2024. Given interval development, this favors pneumonia or aspiration pneumonitis. A chest CT in 3 months to ensure resolution is recommended. 3. Moderate secretions within the airways, as above. 4. Cardiomegaly and extensive coronary artery calcification. 5. Bilateral lower lobe groundglass opacities which could reflect atelectasis, pneumonia or alveolar pulmonary edema. ACT 112: Negative or not required by law. Electronically signed by: Osito Zambrano M.D. 01/03/2025 12:40 PM
--- NOTE | 2025-01-03 12:51 | CT Scan Report ---
CT OF THE ABDOMEN AND PELVIS WITHOUT CONTRAST CLINICAL HISTORY: Abdominal pain. COMPARISON STUDY: CT of the abdomen and pelvis December 29, 2024. TECHNIQUE: Axial images of the abdomen and pelvis were obtained without IV contrast. Images were revi ewed in the axial, sagittal, and coronal planes. Automated exposure control was utilized for the kevin dy. A dose lowering technique was utilized adhering to the principles of ALARA. FINDINGS: Moderate right and small left pleural effusions and pulmonary edema are better depicted on the chest CT which will be reported separately. No pneumatosis, free air or portal venous gas is pres ent. Mild biliary ductal dilatation remains unchanged and likely related to cholecystectomy. No hepat ic lesions are identified on unenhanced exam. A small amount of perihepatic ascites is present. Left adrenal nodularity is unchanged from earlier exams. This is likely benign. Spleen and pancreas are un remarkable. Both kidneys are markedly atrophic. This is unchanged. There are numerous bilateral renal calculi. There are no ureteral calculi. There is no hydronephrosis. Numerous bilateral renal lesions are suboptimally assessed on unenhanced exam. The water attenuation lesions favor cysts. The hyperde nse lesions are nonspecific but may represent proteinaceous cysts. There is no evidence for a bowel o bstruction. No abdominal or pelvic lymphadenopathy is present. This extensive aortoiliac atherosclero tic plaque. No lymphadenopathy is present. There are no fluid collections. No acute fractures within the lumbar spine the pelvis or hips. IMPRESSION: 1. No bowel obstruction. No bowel wall thickening on unenhanced exam. 2. Pulmonary edema with moderate right and small left pleural effusions, better depicted on the chest CT which will be reported separately. 3. Trace abdominal ascites. 4. Bilateral nephrolithiasis. No ureteral calculi. No hydronephrosis. ACT 112: Negative or not required by law. Electronically signed by: Osito Zambrano M.D. 01/03/2025 12:48 PM
[2025-01-03] MEDS: cefTRIAXone SODIUM 2,000 MG/50 ML BAG IV STA (14:30)
[2025-01-03 14:31] LABS: Base Excess VBG 9.2 mEq/L; HCO3 VBG 34 mmol/L; Oxygen Saturation VBG < 60.0 %; PCO2 VBG 43 mmHg (38-50); PO2 VBG 28 mmHg
[2025-01-03] MEDS: DOXYCYCLINE HYCLATE 100 MG in DEXTROSE 5% MINI-B 100 ML IV STA (14:44)
[2025-01-03] MEDS ORDERED: NITROGLYCERIN SL 0.4 MG/TAB TAB SL PRN (14:46)
--- NOTE | 2025-01-03 15:11 | History & Physical Report ---
Date of Service January 03, 2025 Assessment & Plan (1) COPD (chronic obstructive pulmonary disease): Plan: #SOB likely 2/2 COPD exacerbation vs. HFpEF exacerbation vs. CAP #ESRD on HD MWF #Tobacco use # s/p TAVR , potentially worsening, MR, MS -IV solumedrol burst then BID -scheduled duoneb -will give one dose lasix, further diuresis based on clinical response -nephro consult -cardio consult, consider ALBERTO -supplemental O2 prn -continue abx started in the ED -blood culture -repeat CT chest 3 mo outpatient -nicotine patch #Abd pain likely 2/2 the above vs. UTI vs. GERD -UA -PPI #NSTEMI, likely type 2 in the setting of the above -trend troponins -STAT EKG/troponins for chest pain, palpitations #Htn -prn hydralazine >180/100 #Normocytic anemia likely 2/2 ESRD -monitor #DM2, PVD #BPH -home meds Hold IVF Renal diet DVT ppx History of Present Illness Primary Care Provider: Sampson Jimenez 79M pmh ESRD on HD MWF c/b secondary hyperparathyroidism, anemia of chronic dx, DM2 c/b neuropathy, retinopathy, PVD, COPD w/current nicotine abuse, htn, s/p TAVR 2021, MR, Mitral stenosis, BPH who presents to the ED for abdominal pain and SOB. Patient states that he had some periumbilical abdominal burning as well as worsened SOB in the last two weeks for which he called EMS. States he was seen here a few days ago and d/c home without resolution of his symptoms. In the interim patient saw cardiology, who noted potential worsening of his , also with MR and MS, though cardiology is unclear this is related to his progressive respiratory failure, with potential ALBERTO to further evaluate. On my evaluation patient states that he feels improved, specifically that his abdominal pain is largely resolved, and that he did not suspected GERD or UTI f or his symptoms, denying frequency, discharge, suprapubic pain. Patient with continued endorsed SOB, though improved. Allergies Allergy/AdvReac Type Severity Reaction Status Date / Time No Known Allergies Allergy Verified 12/30/24 15:59 Home Medications Medication Instructions Recorded Confirmed Type atorvastatin 40 mg tablet 40 mg PO UD 07/31/19 01/03/25 History cholecalciferol (vitamin D3) 25 1,000 unit PO PM 07/31/19 01/03/25 History mcg (1,000 unit) tablet (Vitamin D3) finasteride 5 mg tablet 5 mg PO HS 07/31/19 01/03/25 History aspirin 81 mg tablet,delayed 81 mg PO QAM 01/06/20 01/03/25 History release albuterol sulfate 90 mcg/actuation 2 puff inhalation QID PRN Wheezing 04/09/24 01/03/25 History aerosol inhaler fluticasone furoate 200 1 inh inhalation UD PRN Shortness 04/09/24 01/03/25 History mcg-vilanterol 25 mcg/dose Of Breath Or Wheezing inhalation powder (Breo Ellipta) tamsulosin 0.4 mg capsule 0.4 mg PO HS 08/21/24 01/03/25 History amlodipine 5 mg tablet 5 mg PO QAM 09/24/24 01/03/25 History citalopram 20 mg tablet 20 mg PO UD 09/24/24 01/03/25 History gabapentin 100 mg capsule 100 mg PO DAILY PRN NEUROPATHY 09/24/24 01/03/25 History sucroferric oxyhydroxide 500 mg 500 mg PO TIDM 09/24/24 01/03/25 History chewable tablet (Velphoro) linagliptin 5 mg tablet (Tradjenta) 5 mg PO UD 11/24/24 01/03/25 History ipratropium 0.5 mg-albuterol 3 mg 3 ml NEB Q4H PRN shortness of 11/27/24 01/03/25 Rx (2.5 mg base)/3 mL nebulization breath or wheezing #90 mL soln fluticasone furoate 100 1 inh inhalation UD 01/03/25 01/03/25 History mcg-vilanterol 25 mcg/dose inhalation powder (Breo Ellipta) Past Med/Surg History Problem List (Updated 01/03/25 @ 09:28 by Cecilia Lala DO) Abdominal pain (Acute) Prosthetic aortic valve stenosis Abdominal pain (Acute) Constipation (Acute) Bronchospasm COPD (chronic obstructive pulmonary disease) Aortic valve stenosis determined by imaging Chest pain (Acute) Shortness of breath (Acute) Acute respiratory failure CAP (community acquired pneumonia) Myocardial injury Parainfluenza infection Tobacco abuse (Acute) Acute exacerbation of chronic obstructive pulmonary disease (Acute) Acute dyspnea (Acute) End-stage renal disease on hemodialysis (Acute) Volume overload (Acute) SOB (shortness of breath) Pulmonary vascular congestion (Acute) ESRD on dialysis (Acute) CKD (chronic kidney disease) (Acute) Tobacco abuse (Acute) Hypertension (Chronic) CKD (chronic kidney disease), stage IV Gastritis CHF (congestive heart failure) Acute respiratory failure with hypoxia Renal failure (Acute) Severe calcific aortic valve stenosis Peritoneal dialysis catheter in situ since removed Tobacco use ESRD (end stage renal disease) on dialysis (Acute) M/W/F > [facility] in [place] Hyperlipidemia BPH (benign prostatic hyperplasia) Diabetes mellitus, type 2 NIDDM Chronic anemia Medical History Open wound of right lower leg Open wound of right heel Non-ST elevation RI (NSTEMI) Traumatic open wound of left lower leg Gram-positive bacteremia Severe sepsis Bacteremia due to Enterococcus Acute hyponatremia Elevated troponin I level Dialysis AV fistula malfunction Encounter for pre-operative examination Clostridioides difficile diarrhea SBO (small bowel obstruction) SBO (small bowel obstruction) Epigastric abdominal pain CHF (congestive heart failure) DVT prophylaxis CKD (chronic kidney disease) stage 5, GFR less than 15 ml/min follows with Dr. Jay Angina pectoris Encounter for pre-operative examination Diabetic foot ulcer Dialysis patient Tobacco abuse PAD (peripheral artery disease) CHF (congestive heart failure) AV fistula left wrist Osteoarthritis Anxiety and depression Hypertension Surgical History S/P cholecystectomy S/P TAVR (transcatheter aortic valve replacement) (2021) SBO (small bowel obstruction) with surgical intervention History of esophagogastroduodenoscopy (EGD) History of colonoscopy History of cholecystectomy History of tooth extraction History of cataract surgery RT/LEFT History of procedure for peripheral vascular disease LEFT LEG (STENT PLACED) Cardiac murmur no cardio Family History Brother Cancer Social History Smoking Status: Current every day smoker Tobacco Type: Cigarettes Age Started Using Tobacco: 16; packs per day: 0.5; Cigarettes Per Day: 10; Second Hand Exposure: No; Do You Dip or Chew Tobacco: No; Hx Alcohol Use: Yes Alcohol type: beer Hx Substance Use: No Preferred Language: Czech Communication Ability: Effective Visual Impairment: No Limitations Hearing Ability: Hard of Hearing Speech Therapist Early Intervention Required: No Beliefs That Will Affect Care: None marital status: Single Current Living Situation: Alone Current Living Situation Comment: daughter helps with cooking and cleaning current occupational status: retired 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 Feels Safe at Home: Yes Diet: regular during the past year weight has: remained stable Assistive Devices: Nebulizer and Walker Review of Systems Constitutional: + fatigue; no body aches, no weakness, n o anorexia and no weight loss Respiratory: + dyspnea and + wheezing; no cough Cardiovascular: no chest pain, no chest pain at rest, no dyspnea and no pa lpitations Genitourinary: no dysuria, no urinary frequency, no urinary hesitancy or no genital pain Physical Exam Constitutional: WD/WN, vitals as above Respiratory: Auscultation: + crackles, + rales and + wheezes Cardiovascular: RRR Gastrointestinal (Abdomen): normal bowel sounds, soft, nontender, no hepatosplenomegaly Results & Data Results & Data Vital Signs (Past 12 Hours) Vital Signs Temp Pulse Pulse Pulse Pulse Resp Resp 01/03/25 13:23 105 H 98 H 36 H 01/03/25 13:19 81 01/03/25 11:15 82 18 01/03/25 10:30 79 26 H 01/03/25 10:06 83 17 01/03/25 09:33 80 24 01/03/25 09:27 83 14 01/03/25 09:27 36.6 C 83 14 01/03/25 09:17 83 Resp BP BP Pulse Ox Pulse Ox Pulse Ox O2 Del Method 01/03/25 13:23 26 H 86 L 90 Room Air 01/03/25 13:19 01/03/25 11:15 120/75 97 Nasal Cannula 01/03/25 10:30 114/67 100 Nasal Cannula 01/03/25 10:06 113/78 100 Nasal Cannula 01/03/25 09:33 133/68 98 Nasal Cannula 01/03/25 09:27 95/71 L 96 Room Air 01/03/25 09:27 95/71 L 95 Room Air 01/03/25 09:17 O2 Flow Rate 01/03/25 13:23 01/03/25 13:19 01/03/25 11:15 2 01/03/25 10:30 2 01/03/25 10:06 2 01/03/25 09:33 2 01/03/25 09:27 01/03/25 09:27 01/03/25 09:17 Laboratory Results Abnormal lab results 01/03/25 01/03/25 Range/Units 09:39 14:15 RBC 3.55 L (4.70-6.10) M/uL Hgb 11.0 L (14.0-18.0) g/dl Hct 35.3 L (42.0-52.0) % MCHC 31.2 L (32.0-36.0) g/dL RDW Std Deviation 65.4 H (36.4-46.3) fL RDW Coeff of Danny 17.9 H (11.5-14.5) % [place] # (Auto) 0.79 H (0.11-0.59) K/uL PT 12.9 H (9.0-12.0) Seconds INR 1.2 H (0.9-1.1) VBG pH 7.50 H (7.36-7.41) Chloride 97 L (98-107) mmol/L Anion Gap 12 H (3-11) Creatinine 3.36 H (0.6-1.4) mg/dl BUN/Creatinine Ratio 6.8 L (10-20) Glucose 184 H (70-99(Fasting)) mg/dl Lactate 2.1 H* (0.4-2.0) mmol/L Troponin I High Sens 101.9 H* (0-20) pg/ml Lipase 8 L (11-82) U/L Diagnostic Findings Abdomen/Pelvis CT 01/03/25 11:56 CT OF THE ABDOMEN AND PELVIS WITHOUT CONTRAST CLINICAL HISTORY: Abdominal pain. COMPARISON STUDY: CT of the abdomen and pelvis December 29, 2024. TECHNIQUE: Axial images of the abdomen and pelvis were obtained without IV contrast. Images were reviewed in the axial, sagittal, and coronal planes. Automated exposure control was utilized for the study. A dose lowering technique was utilized adhering to the principles of ALARA. FINDINGS: Moderate right and small left pleural effusions and pulmonary edema are better depicted on the chest CT which will be reported separately. No pneumatosis, free air or portal venous gas is present. Mild biliary ductal dilatation remains unchanged and likely related to cholecystectomy. No hepatic lesions are identified on unenhanced exam. A small amount of perihepatic ascites is present. Left adrenal nodularity is unchanged from earlier exams. This is likely benign. Spleen and pancreas are unremarkable. Both kidneys are markedly atrophic. This is unchanged. There are numerous bilateral renal calculi. There are no ureteral calculi. There is no hydronephrosis. Numerous bilateral renal lesions are suboptimally assessed on unenhanced exam. The water attenuation lesions favor cysts. The hyperdense lesions are nonspecific but may represent proteinaceous cysts. There is no evidence for a bowel obstruction. No abdominal or pelvic lymphadenopathy is present. This extensive aortoiliac atherosclerotic plaque. No lymphadenopathy is present. There are no fluid collections. No acute fractures within the lumbar spine the pelvis or hips. IMPRESSION: 1. No bowel obstruction. No bowel wall thickening on unenhanced exam. 2. Pulmonary edema with moderate right and small left pleural effusions, better depicted on the chest CT which will be reported separately. 3. Trace abdominal ascites. 4. Bilateral nephrolithiasis. No ureteral calculi. No hydronephrosis. ACT 112: Negative or not required by law. Electronically signed by: Osito Zambrano M.D. 01/03/2025 12:[address] 01/03/25 11:56 CT OF THE CHEST WITHOUT IV CONTRAST CLINICAL HISTORY: Abdominal pain. COMPARISON STUDY: Chest CT September 25, 2024. Chest radiograph December 08, 2024. CT DOSE: 1447.6 mGy.cm TECHNIQUE: Axial images of the chest were obtained without IV contrast. Images were reviewed in the axial, sagittal, and coronal planes. IV contrast was not administered for this examination. Automated exposure control was utilized for the study. A dose lowering technique was utilized adhering to the principles of ALARA. FINDINGS: Subcutaneous lesions of the right shoulder are unchanged. These favor sebaceous cysts. Prominent mediastinal and bilateral hilar lymph nodes are present. There is a prosthetic aortic valve. The heart is moderately enlarged. Extensive coronary artery calcification is present. There is no pericardial effusion. Moderate right and small left pleural effusions have increased in size since CT of September 25, 2024. Interlobular septal thickening has increased as well. There are groundglass opacities within the lungs. A branching irregular 2.1 cm right upper lobe focus on image 109 of 253 has developed since prior CT. There are moderate secretions within the distal trachea and left mainstem bronchus. There are also mild secretions within the bronchus intermedius. Lungs are suboptimally assessed due to respiratory motion. IMPRESSION: 1. Cardiomegaly with interstitial pulmonary edema. Moderate right and small left pleural effusions. 2. 2.1 cm branching irregular focus within the right lobe which is new since CT of September 25, 2024. Given interval development, this favors pneumonia or aspiration pneumonitis. A chest CT in 3 months to ensure resolution is recommended. 3. Moderate secretions within the airways, as above. 4. Cardiomegaly and extensive coronary artery calcification. 5. Bilateral lower lobe groundglass opacities which could reflect atelectasis, pneumonia or alveolar pulmonary edema. ACT 112: Negative or not required by law. Electronically signed by: Osito Zambrano M.D. 01/03/2025 12:40 PM
[2025-01-03] MEDS ORDERED: hydrALAZINE HCL 20 MG/ML VIAL IV PRN (15:20)
[2025-01-03] MEDS: FUROSEMIDE 40 MG/4 ML VIAL IV ONE (15:32)
[2025-01-03] MEDS: methylPREDNISolone 125 MG/2 ML VIAL IV STA (15:32)
[2025-01-03] MEDS ORDERED: ALBUTEROL HFA 8 GM INHALER INH PRN (16:16)
[2025-01-03] MEDS ORDERED: FLUTICASONE/VILANTEROL 200/25MCG 14 PUFFS/INHALER INH PRN (16:16)
[2025-01-03] MEDS ORDERED: ALBUT/IPRATROP 3MG/0.5MG NEB 3 ML VIAL NEB PRN (16:16)
[2025-01-03] MEDS: ENOXAPARIN INJ 30 MG/0.3 ML SYR SQ SCH (16:18)
[2025-01-03] MEDS: NICOTINE 21 MG/24 HR TDSY TD SCH (16:18)
[2025-01-03] MEDS: ATORVASTATIN 40 MG TAB PO SCH (17:44)
[2025-01-03] MEDS: ALBUT/IPRATROP 3MG/0.5MG NEB 3 ML VIAL NEB SCH (19:55)
[2025-01-03] MEDS: ACETAMINOPHEN 325 MG TAB PO PRN (20:59)
[2025-01-03] MEDS: methylPREDNISolone 60 MG in SYRINGE 0 ML IV SCH (21:00)
[2025-01-03] MEDS ORDERED: methylPREDNISolone 125 MG/2 ML VIAL IV SCH (21:00)
[2025-01-03] MEDS: CHOLECALCIFEROL 25 MCG (1000 UNITS) TAB PO SCH (21:00)
[2025-01-03] MEDS: TAMSULOSIN HCL 0.4 MG CAP PO SCH (21:01)
[2025-01-03] MEDS: CITALOPRAM 20 MG TAB PO SCH (21:01)
[2025-01-03] MEDS: FINASTERIDE 5 MG TAB PO SCH (21:03)
[2025-01-03] MEDS: FLUTICASONE/VILANTEROL 100/25MCG 14 PUFFS/INHALER INH SCH (21:03)
--- NOTE | 2025-01-04 07:44 | Hospitalist Progress Note ---
Date of Service January 04, 2025 Assessment & Plan (1) COPD (chronic obstructive pulmonary disease): (2) ESRD on dialysis: (3) Aortic valve stenosis determined by imaging: (4) Shortness of breath: Plan COPD (chronic obstructive pulmonary disease): SOB likely 2/2 COPD exacerbation vs. HFpEF exacerbation vs. CAP ESRD on HD MWF Tobacco use s/p TAVR 22, potentially worsening, MR, MS -IV solumedrol on admission, then BID -scheduled duoneb -received one dose lasix on admission, further diuresis based on clinical response/ as per nephrology -Nephrology consulted -Cardiology consulted, plan to obtain TTE today, may consider ALBERTO later -supplemental O2 prn -continue abx started in the ED -blood culture -repeat CT chest 3 mo outpatient -nicotine patch Abd pain likely 2/2 the above vs. UTI vs. GERD -UA negat. -PPI - today denies abd. pain, said had some for about 10 min before he had BM NSTEMI, likely type 2 in the setting of the above -troponins 80-100s - cardiology consulted, as above - per cardiology - would not pursue further unless his LV function has deteriorated on echocardiography and even then not sure it would be due to myocardial ischemia -STAT EKG/troponins for chest pain, palpitations HTN -prn hydralazine >180/100 Normocytic anemia likely 2/2 ESRD -monitor DM2, PVD BPH -home meds Hold IVF Renal diet DVT ppx Admission and Anticipated Discharge Date Admission Date: January 03, 2025 Subjective Pt seen in follow up of shortness of breath, abd. pain Pt w/ hx of ESRD, hx of s/p TAVR Currently laying in bed in NAD, appears tired, is on suppl. O2 Says he feels better since yesterday Denies any abd. pain currently, said he had some today in rlq for about 15 min, it resolved after he had BM Currently no CP no fever, chills, no n/v Review of Systems Review of Systems: All systems reviewed & are unremarkable except as noted in Subjective Physical Exam Constitutional: WD/WN, vitals as above (chronically ill appearing M, thin) Eyes: PERRL, conjunctivae normal, anicteric sclerae ENMT: external ear and nose normal, oropharynx normal Neck: normal visual inspection Respiratory: normal respiratory effort (on suppl. O2, basilar crackles) Cardiovascular: Rate/Rhythm: regular rhythm Chest (Breasts): Chest: normal inspection of chest Gastrointestinal (Abdomen): Inspection/Auscultation: abdomen normal to inspection Percussion/Palpation: abdomen soft; abdomen nontender Musculoskeletal: Head/Neck/Chest: normocephalic, head atraumatic and neck supple Skin: no rashes, warm and dry Neurologic: PERRL, EOMI, accommodation nl, no face palsy, no dysarthria Psychiatric: A+Ox3, euthymic affect Results & Data Results & Data Vital Signs (Past 12 Hours) Vital Signs Temp Pulse Pulse Resp BP Pulse Ox O2 Del Method 01/04/25 07:32 84 18 98 Nasal Cannula 01/04/25 07:22 36.3 C L 87 20 119/79 98 Nasal Cannula 01/04/25 07:06 Nasal Cannula 01/04/25 07:01 86 01/04/25 02:49 36.4 C L 84 16 124/78 97 Nasal Cannula 01/04/25 01:13 88 18 98 Nasal Cannula 01/03/25 22:06 36.4 C L 66 16 128/82 99 Nasal Cannula 01/03/25 21:42 90 01/03/25 21:00 Nasal Cannula 01/03/25 19:56 94 H 18 92 Room Air O2 Flow Rate 01/04/25 07:32 2 01/04/25 07:22 2 01/04/25 07:06 2 01/04/25 07:01 01/04/25 02:49 2 01/04/25 01:13 2 01/03/25 22:06 2 01/03/25 21:42 01/03/25 21:00 2 01/03/25 19:56 Laboratory Results 01/03/25 01/03/25 01/03/25 Range/Units 18:30 17:49 14:20 WBC (4.8-10.8) K/ul RBC (4.70-6.10) M/uL Hgb (14.0-18.0) g/dl Hct (42.0-52.0) % MCV (80.0-100.0) fL MCH (25.0-34.0) pg MCHC (32.0-36.0) g/dL RDW Std Deviation (36.4-46.3) fL RDW Coeff of Danny (11.5-14.5) % Plt Count (130-400) K/uL MPV (9.4-12.4) fL Immature Gran % (Auto) % Neut % (Auto) % Lymph % (Auto) % [place] % (Auto) % Eos % (Auto) % Baso % (Auto) % Neut # (Auto) (1.40-6.50) K/uL Lymph # (Auto) (1.20-3.40) K/uL [place] # (Auto) (0.11-0.59) K/uL Eos # (Auto) (0.00-0.50) K/uL Baso # (Auto) (0.00-0.20) K/uL Immature Gran # (Auto) (0.01-0.20) K/uL Absolute Nucleated RBC (0.00-0.12) K/uL Nucleated RBC % (auto) % PT (9.0-12.0) Seconds INR (0.9-1.1) VBG pH (7.36-7.41) VBG pCO2 (38-50) mmHg VBG pO2 mmHg VBG HCO3 mmol/L VBG O2 Saturation % VBG Base Excess mEq/L Sodium (136-145) mmol/L Potassium (3.5-5.1) mmol/L Chloride (98-107) mmol/L Carbon Dioxide (21-32) mmol/L Anion Gap (3-11) BUN (6-23) mg/dl Creatinine (0.6-1.4) mg/dl Est Cr Clr Drug Dosing ml/min eGFR BUN/Creatinine Ratio (10-20) Glucose (70-99(Fasting)) mg/dl Lactate (0.4-2.0) mmol/L Calcium (8.6-10.3) mg/dl Magnesium (1.7-2.4) mg/dl Total Bilirubin (0.2-1.0) mg/dl AST (13-39) U/L ALT (7-52) U/L Alkaline Phosphatase (34-104) U/L Troponin I High Sens 104.7 H* 88.3 H* D (0-20) pg/ml Total Protein (6.0-8.3) gm/dl Albumin (3.4-5.0) gm/dl Globulin (2.5-4.0) gm/dl Albumin/Globulin Ratio (0.9-2) Lipase (11-82) U/L Procalcitonin (0-0.5) ng/ml TSH (0.300-4.500) uIu/ml Nasal Screen MRSA (PCR) Negative (Negative) Adenovirus (PCR) (NotDetected) B. pertussis DNA (PCR) (NotDetected) B.parapertussis DNA PCR (NotDetected) C. pneumoniae DNA (PCR) (NotDetected) Coronavirus OC43 (PCR) (NotDetected) Coronavirus HKU1 (PCR) (NotDetected) Coronavirus 229E (PCR) (NotDetected) SARS-CoV-2 (PCR) (NotDetected) Coronavirus NL63 (PCR) (NotDetected) Human Metapneumovir PCR (NotDetected) Influenza Type A (PCR) (NotDetected) Influenza Type B (PCR) (NotDetected) M. pneumoniae (PCR) (NotDetected) Parainfluenza 1 (PCR) (NotDetected) Parainfluenza 2 (PCR) (NotDetected) Parainfluenza 3 (PCR) (NotDetected) Parainfluenza 4 (PCR) (NotDetected) RSV (PCR) (NotDetected) Entero/Rhino (PCR) (NotDetected) 01/03/25 01/03/25 01/03/25 Range/Units 14:15 12:11 09:42 WBC (4.8-10.8) K/ul RBC (4.70-6.10) M/uL Hgb (14.0-18.0) g/dl Hct (42.0-52.0) % MCV (80.0-100.0) fL MCH (25.0-34.0) pg MCHC (32.0-36.0) g/dL RDW Std Deviation (36.4-46.3) fL RDW Coeff of Danny (11.5-14.5) % Plt Count (130-400) K/uL MPV (9.4-12.4) fL Immature Gran % (Auto) % Neut % (Auto) % Lymph % (Auto) % [place] % (Auto) % Eos % (Auto) % Baso % (Auto) % Neut # (Auto) (1.40-6.50) K/uL Lymph # (Auto) (1.20-3.40) K/uL [place] # (Auto) (0.11-0.59) K/uL Eos # (Auto) (0.00-0.50) K/uL Baso # (Auto) (0.00-0.20) K/uL Immature Gran # (Auto) (0.01-0.20) K/uL Absolute Nucleated RBC (0.00-0.12) K/uL Nucleated RBC % (auto) % PT (9.0-12.0) Seconds INR (0.9-1.1) VBG pH 7.50 H (7.36-7.41) VBG pCO2 43 (38-50) mmHg VBG pO2 28 mmHg VBG HCO3 34 mmol/L VBG O2 Saturation < 60.0 % VBG Base Excess 9.2 mEq/L Sodium (136-145) mmol/L Potassium (3.5-5.1) mmol/L Chloride (98-107) mmol/L Carbon Dioxide (21-32) mmol/L Anion Gap (3-11) BUN (6-23) mg/dl Creatinine (0.6-1.4) mg/dl Est Cr Clr Drug Dosing ml/min eGFR BUN/Creatinine Ratio (10-20) Glucose (70-99(Fasting)) mg/dl Lactate 1.8 (0.4-2.0) mmol/L Calcium (8.6-10.3) mg/dl Magnesium (1.7-2.4) mg/dl Total Bilirubin (0.2-1.0) mg/dl AST (13-39) U/L ALT (7-52) U/L Alkaline Phosphatase (34-104) U/L Troponin I High Sens (0-20) pg/ml Total Protein (6.0-8.3) gm/dl Albumin (3.4-5.0) gm/dl Globulin (2.5-4.0) gm/dl Albumin/Globulin Ratio (0.9-2) Lipase (11-82) U/L Procalcitonin (0-0.5) ng/ml TSH (0.300-4.500) uIu/ml Nasal Screen MRSA (PCR) (Negative) Adenovirus (PCR) Not Detected (NotDetected) B. pertussis DNA (PCR) Not Detected (NotDetected) B.parapertussis DNA PCR Not Detected (NotDetected) C. pneumoniae DNA (PCR) Not Detected (NotDetected) Coronavirus OC43 (PCR) Not Detected (NotDetected) Coronavirus HKU1 (PCR) Not Detected (NotDetected) Coronavirus 229E (PCR) Not Detected (NotDetected) SARS-CoV-2 (PCR) Not Detected (NotDetected) Coronavirus NL63 (PCR) Not Detected (NotDetected) Human Metapneumovir PCR Not Detected (NotDetected) Influenza Type A (PCR) Not Detected (NotDetected) Influenza Type B (PCR) Not Detected (NotDetected) M. pneumoniae (PCR) Not Detected (NotDetected) Parainfluenza 1 (PCR) Not Detected (NotDetected) Parainfluenza 2 (PCR) Not Detected (NotDetected) Parainfluenza 3 (PCR) Not Detected (NotDetected) Parainfluenza 4 (PCR) Not Detected (NotDetected) RSV (PCR) Not Detected (NotDetected) Entero/Rhino (PCR) Not Detected (NotDetected) 01/03/25 Range/Units 09:39 WBC 6.61 (4.8-10.8) K/ul RBC 3.55 L (4.70-6.10) M/uL Hgb 11.0 L (14.0-18.0) g/dl Hct 35.3 L (42.0-52.0) % MCV 99.4 (80.0-100.0) fL MCH 31.0 (25.0-34.0) pg MCHC 31.2 L (32.0-36.0) g/dL RDW Std Deviation 65.4 H (36.4-46.3) fL RDW Coeff of Danny 17.9 H (11.5-14.5) % Plt Count 180 (130-400) K/uL MPV 11.7 (9.4-12.4) fL Immature Gran % (Auto) 0.6 % Neut % (Auto) 67.3 % Lymph % (Auto) 19.4 % [place] % (Auto) 12.0 % Eos % (Auto) 0.2 % Baso % (Auto) 0.5 % Neut # (Auto) 4.46 (1.40-6.50) K/uL Lymph # (Auto) 1.28 (1.20-3.40) K/uL [place] # (Auto) 0.79 H (0.11-0.59) K/uL Eos # (Auto) 0.01 (0.00-0.50) K/uL Baso # (Auto) 0.03 (0.00-0.20) K/uL Immature Gran # (Auto) 0.04 (0.01-0.20) K/uL Absolute Nucleated RBC 0.05 (0.00-0.12) K/uL Nucleated RBC % (auto) 0.8 % PT 12.9 H (9.0-12.0) Seconds INR 1.2 H (0.9-1.1) VBG pH (7.36-7.41) VBG pCO2 (38-50) mmHg VBG pO2 mmHg VBG HCO3 mmol/L VBG O2 Saturation % VBG Base Excess mEq/L Sodium 141 (136-145) mmol/L Potassium 3.9 (3.5-5.1) mmol/L Chloride 97 L (98-107) mmol/L Carbon Dioxide 32 (21-32) mmol/L Anion Gap 12 H (3-11) BUN 23 (6-23) mg/dl Creatinine 3.36 H (0.6-1.4) mg/dl Est Cr Clr Drug Dosing 17.2 ml/min eGFR 17.66 BUN/Creatinine Ratio 6.8 L (10-20) Glucose 184 H (70-99(Fasting)) mg/dl Lactate 2.1 H* (0.4-2.0) mmol/L Calcium 9.8 (8.6-10.3) mg/dl Magnesium 2.0 (1.7-2.4) mg/dl Total Bilirubin 1.0 (0.2-1.0) mg/dl AST 28 (13-39) U/L ALT 23 (7-52) U/L Alkaline Phosphatase 98 (34-104) U/L Troponin I High Sens 101.9 H* (0-20) pg/ml Total Protein 6.5 (6.0-8.3) gm/dl Albumin 3.5 (3.4-5.0) gm/dl Globulin 3.0 (2.5-4.0) gm/dl Albumin/Globulin Ratio 1.2 (0.9-2) Lipase 8 L (11-82) U/L Procalcitonin 0.43 (0-0.5) ng/ml TSH 2.000 (0.300-4.500) uIu/ml Nasal Screen MRSA (PCR) (Negative) Adenovirus (PCR) (NotDetected) B. pertussis DNA (PCR) (NotDetected) B.parapertussis DNA PCR (NotDetected) C. pneumoniae DNA (PCR) (NotDetected) Coronavirus OC43 (PCR) (NotDetected) Coronavirus HKU1 (PCR) (NotDetected) Coronavirus 229E (PCR) (NotDetected) SARS-CoV-2 (PCR) (NotDetected) Coronavirus NL63 (PCR) (NotDetected) Human Metapneumovir PCR (NotDetected) Influenza Type A (PCR) (NotDetected) Influenza Type B (PCR) (NotDetected) M. pneumoniae (PCR) (NotDetected) Parainfluenza 1 (PCR) (NotDetected) Parainfluenza 2 (PCR) (NotDetected) Parainfluenza 3 (PCR) (NotDetected) Parainfluenza 4 (PCR) (NotDetected) RSV (PCR) (NotDetected) Entero/Rhino (PCR) (NotDetected) Medications Administered Current Inpatient Medications Acetaminophen (Acetaminophen 325 Mg Tab) 650 mg PO Q4H PRN PRN Reason: Pain or Fever Stop: 02/02/25 14:45 Last Admin: 01/03/25 20:59 Dose: 650 mg Albuterol (Albut/Ipratrop 3mg/0.5mg Neb 3 Ml Vial) 3 ml NEB Q6R [facility]; Protocol Stop: 02/02/25 18:59 Last Admin: 01/04/25 07:31 Dose: 3 ml Albuterol (Albuterol Hfa 8 Gm Inhaler) 2 puffs INH QID PRN PRN Reason: Wheezing Stop: 02/02/25 16:15 Albuterol (Albut/Ipratrop 3mg/0.5mg Neb 3 Ml Vial) 3 ml NEB Q4H PRN; Protocol PRN Reason: shortness of breath or wheezing Stop: 02/02/25 16:15 Amlodipine Besylate (Amlodipine Besylate 5 Mg Tab) 5 mg PO QAM RANDY Stop: 02/03/25 08:59 Aspirin (Aspirin 81 Mg Ectab) 81 mg PO QAM RANDY Stop: 02/03/25 08:59 Atorvastatin Calcium (Atorvastatin 40 Mg Tab) 40 mg PO QAM RANDY Stop: 02/02/25 16:15 Last Admin: 01/03/25 17:44 Dose: 40 mg Citalopram Hydrobromide (Citalopram 20 Mg Tab) 20 mg PO PM RANDY Stop: 02/02/25 20:59 Last Admin: 01/03/25 21:01 Dose: 20 mg Enoxaparin Sodium (Enoxaparin Inj 30 Mg/0.3 Ml Syr) 30 mg SQ Q24H RANDY Stop: 02/02/25 15:29 Last Admin: 01/03/25 16:18 Dose: 30 mg Finasteride (Finasteride 5 Mg Tab) 5 mg PO HS RANDY Stop: 02/02/25 20:59 Last Admin: 01/03/25 21:03 Dose: 5 mg Fluticasone/Vilanterol (Fluticasone/Vilanterol 100/25mcg 14 Puffs/Inhaler) 1 puffs INH PM RANDY Stop: 02/02/25 20:59 Last Admin: 01/03/25 21:03 Dose: 1 puffs Gabapentin (Gabapentin 100 Mg Cap) 100 mg PO DAILY PRN PRN Reason: NEUROPATHY Stop: 02/02/25 16:15 Hydralazine HCl (Hydralazine Hcl 20 Mg/Ml Vial) 5 mg IV Q4H PRN PRN Reason: hypertension Stop: 02/02/25 15:19 Ceftriaxone Sodium (Rocephin) 1,000 mg in 50 mls @ 100 mls/hr IV Q24H RANDY Stop: 01/06/25 13:59 Methylprednisolone 60 mg/ (Syringe) 0.96 mls @ 1.5 mls/min IV Q12H RANDY Stop: 02/02/25 20:59 Last Admin: 01/03/25 21:00 Dose: 1.5 mls/min Miscellaneous (Remove Nicoderm Patch) 1 each N/A DAILY@0859 [facility] Stop: 02/03/25 08:58 Miscellaneous (Velphoro 500 Mg - Order Awaiting Action) 1 each N/A QS RANDY Stop: 02/02/25 16:59 Last Admin: 01/03/25 23:26 Dose: Not Given Nicotine (Nicotine 21 Mg/24 Hr Tdsy) 1 patch TD QAM RANDY Stop: 02/02/25 15:29 Last Admin: 01/03/25 16:18 Dose: 1 patch Nitroglycerin (Nitroglycerin Sl 0.4 Mg/Tab Tab) 0.4 mg SL Q5M PRN PRN Reason: Chest Pain Stop: 02/02/25 14:45 Ondansetron HCl (Ondansetron Inj 2 Mg/Ml 2 Ml Vial) 4 mg IV Q6H PRN PRN Reason: Nausea Stop: 02/02/25 14:45 Pantoprazole Sodium (Pantoprazole 40 Mg Tab) 40 mg PO DAILY RANDY Stop: 02/03/25 08:59 Tamsulosin HCl (Tamsulosin Hcl 0.4 Mg Cap) 0.4 mg PO HS RANDY Stop: 02/02/25 20:59 Last Admin: 01/03/25 21:01 Dose: 0.4 mg Vitamin D (Cholecalciferol 25 Mcg (1000 Units) Tab) 25 mcg PO PM RANDY Stop: 02/02/25 20:59 Last Admin: 01/03/25 21:00 Dose: 25 mcg
[2025-01-04] MEDS: ASPIRIN 81 MG ECTAB PO SCH (08:15)
[2025-01-04] MEDS: amLODIPine BESYLATE 5 MG TAB PO SCH (08:15)
[2025-01-04] MEDS: PANTOprazole 40 MG TAB PO SCH (08:15)
--- NOTE | 2025-01-04 09:09 | Cardiology Consultation ---
Date of Consultation January 04, 2025 Assessment & Plan (1) Aortic valve stenosis determined by imaging: (2) Elevated troponin: (3) Mitral regurgitation: (4) CAD (coronary artery disease): (5) Hypertension: Plan 1. Aortic stenosis: His last echocardiogram suggested significant prosthetic valve stenosis, but with normal left ventricular function and was felt not to contribute to his clinical presentation. I believe that is the case currently, I am not sure his valve is as stenotic as it was reported at his last echocardiogram. He does not have a very loud aortic stenosis murmur and I do not hear a transmitted murmur into his carotids. Neither of these is definitive, but I am going to repeat the echocardiogram paying specific attention to the aortic valve. If it is significantly stenotic, and certainly if it is worsening, we may have to consider ALBERTO but we would not do that today. 2. Elevated troponin: His high sensitive troponin is elevated, however most of his prior measurements have been in about the same range as this admission and I do not think this represents significant myocardial injury. I would not pursue further and less his LV function has deteriorated on echocardiography and even then I am not sure it would be due to myocardial ischemia. 3. Mitral regurgitation: He does have mild to moderate mitral regurgitation and we can evaluate this by echocardiography as well. 4. Nonobstructive coronary artery disease: He does have a history of nonobstructive coronary disease identified at catheterization and he should continue with risk factor modification. As noted above I do not think he is having difficulty with ischemia currently. 5. Hypertension: His blood pressure has been very well-controlled lately on amlodipine, if he has significant aortic stenosis we might consider switching to something which is less of a vasodilator. History of Present Illness Reason for Consultation: Aortic stenosis Attending Physician: Hans Winters MD History of Present Illness This is an 79-year-old male who follows with Dr. Perez in the office currently, however before his hospitalization in April 2024 he followed with Mary. We are now following him for his TAVR as well as his history of nonobstructive coronary artery disease. He also has other issues including end-stage renal disease on hemodialysis, diabetic neuropathy, diabetic retinopathy, peripheral vascular disease, COPD and hypertension. He has had multiple hospitalizations including from November 24, 2024 through November 27, 2024 and most recently he was hospitalized from December 06, 2024 through December 11, 2024 when he presented with chest discomfort and shortness of breath. Evaluation included transthoracic echocardiography where he did have some aortic valve stenosis but it was felt unlikely that his clinical presentation was due to that and although his troponin was elevated it is chronically so and it was not felt that coronary artery disease was contributing to his presentation. He presents now with abdominal pain which has been present for several weeks, he was seen in the emergency room on December 29, 2024 and discharged. He was admitted and his discomfort is being evaluated. He has a chronically elevated troponin which is not markedly out of range this visit and his electrocardiogram on January 03, 2025 shows sinus rhythm with left anterior fascicular block and right bundle branch block and what appears to be poor R wave progression but no evidence of acute injury although with his conduction abnormalities the electrocardiogram would be poor sensitivity for this. Although the computer reading indicates significant changes on review of prior electrocardiograms there is no significant change. His last transthoracic echocardiogram echocardiogram was done November 24, 2024 and showed normal left ventricular size and function with an ejection fraction of 50 to 55% and moderate concentric left ventricular hypertrophy. Velocity through the valve were elevated suggesting moderate stenosis, the mean gradient was 27 mmHg. In comparison his echocardiogram April 20, 2024 showed a maximum gradient of 13.6 mmHg with no mean given. Although elevated on his recent echocardiogram this was not felt to represent a clinically significant finding but needed to be followed. At the time of my evaluation he was not speaking very clearly, it was hard to follow what he was saying but he does not seem to have any cardiovascular complaints currently. I believe that is his baseline mental status. Allergies Allergy/AdvReac Type Severity Reaction Status Date / Time No Known Allergies Allergy Verified 12/30/24 15:59 Home Medications Medication Instructions Recorded Confirmed Type atorvastatin 40 mg tablet 40 mg PO UD 07/31/19 01/03/25 History cholecalciferol (vitamin D3) 25 1,000 unit PO PM 07/31/19 01/03/25 History mcg (1,000 unit) tablet (Vitamin D3) finasteride 5 mg tablet 5 mg PO HS 07/31/19 01/03/25 History aspirin 81 mg tablet,delayed 81 mg PO QAM 01/06/20 01/03/25 History release albuterol sulfate 90 mcg/actuation 2 puff inhalation QID PRN Wheezing 04/09/24 01/03/25 History aerosol inhaler fluticasone furoate 200 1 inh inhalation UD PRN Shortness 04/09/24 01/03/25 History mcg-vilanterol 25 mcg/dose Of Breath Or Wheezing inhalation powder (Breo Ellipta) tamsulosin 0.4 mg capsule 0.4 mg PO HS 08/21/24 01/03/25 History amlodipine 5 mg tablet 5 mg PO QAM 09/24/24 01/03/25 History citalopram 20 mg tablet 20 mg PO UD 09/24/24 01/03/25 History gabapentin 100 mg capsule 100 mg PO DAILY PRN NEUROPATHY 09/24/24 01/03/25 History sucroferric oxyhydroxide 500 mg 500 mg PO TIDM 09/24/24 01/03/25 History chewable tablet (Velphoro) linagliptin 5 mg tablet (Tradjenta) 5 mg PO UD 11/24/24 01/03/25 History ipratropium 0.5 mg-albuterol 3 mg 3 ml NEB Q4H PRN shortness of 11/27/24 01/03/25 Rx (2.5 mg base)/3 mL nebulization breath or wheezing #90 mL soln fluticasone furoate 100 1 inh inhalation UD 01/03/25 01/03/25 History mcg-vilanterol 25 mcg/dose inhalation powder (Breo Ellipta) Patient History Medical History Open wound of right lower leg Open wound of right heel Non-ST elevation KS (NSTEMI) Traumatic open wound of left lower leg Gram-positive bacteremia Severe sepsis Bacteremia due to Enterococcus Acute hyponatremia Elevated troponin I level Dialysis AV fistula malfunction Encounter for pre-operative examination Clostridioides difficile diarrhea SBO (small bowel obstruction) SBO (small bowel obstruction) Epigastric abdominal pain CHF (congestive heart failure) DVT prophylaxis CKD (chronic kidney disease) stage 5, GFR less than 15 ml/min follows with Dr. Jay Angina pectoris Encounter for pre-operative examination Diabetic foot ulcer Dialysis patient Tobacco abuse PAD (peripheral artery disease) CHF (congestive heart failure) AV fistula left wrist Osteoarthritis Anxiety and depression Hypertension Surgical History S/P cholecystectomy S/P TAVR (transcatheter aortic valve replacement) (2021) SBO (small bowel obstruction) with surgical intervention History of esophagogastroduodenoscopy (EGD) History of colonoscopy History of cholecystectomy History of tooth extraction History of cataract surgery RT/LEFT History of procedure for peripheral vascular disease LEFT LEG (STENT PLACED) Cardiac murmur no cardio Family History Brother Cancer Social History Smoking Status: Current every day smoker Tobacco Type: Cigarettes Age Started Using Tobacco: 16; packs per day: 0.5; Cigarettes Per Day: 10; Second Hand Exposure: No; Do You Dip or Chew Tobacco: No; Tobacco Cessation Education Requested by Patient: No Hx Alcohol Use: Yes Alcohol type: beer Hx Substance Use: No Preferred Language: Estonian Communication Ability: Effective Visual Impairment: No Limitations Hearing Ability: Hard of Hearing Beater Tender Required: No Beliefs That Will Affect Care: None marital status: Single Current Living Situation: Alone Current Living Situation Comment: alone in an apartment current occupational status: retired 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 Other Information That Helps Us Care for You: No Feels Safe at Home: Yes Safety Concerns: Feels Safe At This Time Diet: regular during the past year weight has: remained stable Assistive Devices: Oxygen - Continuous and Walker Review of Systems Review of Systems: Unobtainable due to cognitive status Physical Exam Physical Exam: Constitutional: Alert, cooperative and in no distress. He is resting in bed. HEENT: Unremarkable Neck: No jugular venous distention, carotid pulses are normal and equal bilaterally without bruits. I do not hear a significant transmitted murmur. Pulmonary: Clear to auscultation bilaterally. Cardiac: Regular rhythm with a soft outflow tract murmur, no gallop or rub. Abdomen: Soft, nontender with normal bowel sounds. Extremities: No edema. Neurologic: No focal findings. Skin: No rash, some arm ecchymoses, no petechiae. Results & Data Vital Signs (Past 12 Hours) Vital Signs Temp Pulse Pulse Resp BP Pulse Ox O2 Del Method 01/04/25 07:32 84 18 98 Nasal Cannula 01/04/25 07:22 36.3 C L 87 20 119/79 98 Nasal Cannula 01/04/25 07:06 Nasal Cannula 01/04/25 07:01 86 01/04/25 02:49 36.4 C L 84 16 124/78 97 Nasal Cannula 01/04/25 01:13 88 18 98 Nasal Cannula 01/03/25 22:06 36.4 C L 66 16 128/82 99 Nasal Cannula 01/03/25 21:42 90 O2 Flow Rate 01/04/25 07:32 2 01/04/25 07:22 2 01/04/25 07:06 2 01/04/25 07:01 01/04/25 02:49 2 01/04/25 01:13 2 01/03/25 22:06 2 01/03/25 21:42 Laboratory Results Cardiac Enzymes 01/03/25 01/03/25 Range/Units 14:20 17:49 Troponin I High Sens 88.3 H* D 104.7 H* (0-20) pg/ml Intake and Output 01/03/25 01/04/25 01/04/25 22:59 06:59 14:59 Intake Total 450 / 1725 475 / 1725 Output Total Balance 449 / 1724 475 / 1724 Intake: IV 100 / 900 Doxycycline Hyclate 100 mg In 100 / 100 Dextrose 5% Mini-B 100 ml @ 50 mls/hr IV NOW STA Rx#:[id number] Oral 350 / 825 475 / 825 Output: # Bowel Movements Other: # Unmeasured Voids 2 2 Weight 70.3 kg 71 kg Weight Measurement Method [facility] Diagnostic Findings Telemetry: Sinus rhythm, some PVCs and PACs. PG Care Time/CCT Total # of Minutes Spent Total Time Spent with Patient: Total time spent is greater than 50% in coordination of care (as documented) at patient's floor/unit and/or counseling patient: Coding Level of Care Code 21244 INT INP/OBS CARE 3/75MIN Diagnoses Aortic valve stenosis determined by imaging I35.0 Elevated troponin R79.89 Mitral regurgitation I34.0 CAD (coronary artery disease) I25.10 Essential hypertension I10 Hypertension type: essential hypertension (5) Hypertension Hypertension type: essential hypertension Qualified Code(s): I10 - Essential (primary) hypertension
[2025-01-04] MEDS: cefTRIAXone SODIUM 1,000 MG/50 ML BAG IV SCH (13:42)
--- NOTE | 2025-01-04 15:28 | Nephrology Consultation ---
Date of Consultation January 04, 2025 Assessment & Plan (1) End-stage renal disease on hemodialysis: on mwf HD and adherent w/ txs >> plan HD tomorrow am via AVF > as aggressive UF as tolerated given CT ff of plm edema >stopped amlodipine so we have BP to work wtih for UF > may need midodrine Care coordinated w/ Dr Winters by phone re dialysis plan, BP meds, anticoagulation; we are in agreement. (2) Prosthetic aortic valve stenosis: per cardiology w/u; f/u pending TTE >>would avoid enoxaparin in ESRD d/t bleeding risk > will suggest heparin gtt to hospitalist (3) COPD (chronic obstructive pulmonary disease): much more symptomatic past 3 mos; as per primary service >on nebs, steroids >>?aspiration PNA on admission imaging today as well > on ceftriaxone, doxy (4) Abdominal pain: as per primary service; unlikely to have UTI but if concerned check UA; he does void most days lately History of Present Illness Reason for Consultation: ESRD on MWF HD Requesting Physician: Dr Hein Attending Physician: Hans Winters MD History of Present Illness 79 y/o M whom I'm asked to see for ESRD on MWF HD was admitted yesterday afternoon for mgt of more symptomatic dyspnea in the setting of COPD exacerbation versus HFpEF versus CAP after coming to ED for second time in a week to evaluate abd pain and this time also w/ worsening dyspnea. PMH includes MWF HD via AVF at [facility], HFpEF (EF 50-55%, TTE 2024), status post TAVR and w/ concern starting last month on imaging for ? restenosis, CAD, COPD with ongoing tobacco abuse, hypertension, hyperlipidemia, DM2 diet- controlled, h/o bacteremia x 2 > enterococcus fall 2022 and streptococcal bacteremia April 2024, h/o C diff colitis, chronic foot wounds > most recently R great toe, at least mild cognitive impairment/dementia, chronic ambulatoy dysfunction/ walker dependent. Also w/ chronic R foot wounds of great leyva and R heel, RLE as of October 2024 was to be seen q 2 wks w/ [facility] wound team. Hasn't seen since 10/23. He lives alone w/ paid caregivers most weekdays; his daughter is his POA, appts are arranged through her. He has often had challenges getting to needed OP appts. 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 He is adherent w/ dialysis treatments; lots of challenges in forgetting to take his pills though. This is his 4th admission here since September for breathing concerns: September for COPD excerbation, mid November for parainfluenza/possible CAP and plm edema; late November ?COPD excerbation/prolonged bronchitis/ ? volume overload. After his recent hospital stay, his TW was lowered by 2 KG from 73 > 71 kg; he has stayed at this TW and even came to 01/02 tx under target. He c/o dyspnea at 2 of the 3 txs last week, including 01/02 per grants specialist notes. In July and August and for months before that, his TW was 75 kg w/ no acute breathing issues. he has challenges w/ orthostatic hypotension at times. he was started on standing nebs and given abtx for ? UTI ; cardiology came to see pt ; he had TTE today read pending. he tells me he's really tired, really hungry though still w/ "upset" stomach; no n/v, no diarrhea; no chest pain or palpitatinos but pretty sob. no f/c Allergies Allergy/AdvReac Type Severity Reaction Status Date / Time No Known Allergies Allergy Verified 12/30/24 15:59 Home Medications Medication Instructions Recorded Confirmed Type atorvastatin 40 mg tablet 40 mg PO UD 07/31/19 01/03/25 History cholecalciferol (vitamin D3) 25 1,000 unit PO PM 07/31/19 01/03/25 History mcg (1,000 unit) tablet (Vitamin D3) finasteride 5 mg tablet 5 mg PO HS 07/31/19 01/03/25 History aspirin 81 mg tablet,delayed 81 mg PO QAM 01/06/20 01/03/25 History release albuterol sulfate 90 mcg/actuation 2 puff inhalation QID PRN Wheezing 04/09/24 01/03/25 History aerosol inhaler fluticasone furoate 200 1 inh inhalation UD PRN Shortness 04/09/24 01/03/25 History mcg-vilanterol 25 mcg/dose Of Breath Or Wheezing inhalation powder (Breo Ellipta) tamsulosin 0.4 mg capsule 0.4 mg PO HS 08/21/24 01/03/25 History amlodipine 5 mg tablet 5 mg PO QAM 09/24/24 01/03/25 History citalopram 20 mg tablet 20 mg PO UD 09/24/24 01/03/25 History gabapentin 100 mg capsule 100 mg PO DAILY PRN NEUROPATHY 09/24/24 01/03/25 History sucroferric oxyhydroxide 500 mg 500 mg PO TIDM 09/24/24 01/03/25 History chewable tablet (Velphoro) linagliptin 5 mg tablet (Tradjenta) 5 mg PO UD 11/24/24 01/03/25 History ipratropium 0.5 mg-albuterol 3 mg 3 ml NEB Q4H PRN shortness of 11/27/24 01/03/25 Rx (2.5 mg base)/3 mL nebulization breath or wheezing #90 mL soln fluticasone furoate 100 1 inh inhalation UD 01/03/25 01/03/25 History mcg-vilanterol 25 mcg/dose inhalation powder (Breo Ellipta) Patient History Medical History Open wound of right lower leg Open wound of right heel Non-ST elevation KS (NSTEMI) Traumatic open wound of left lower leg Gram-positive bacteremia Severe sepsis Bacteremia due to Enterococcus Acute hyponatremia Elevated troponin I level Dialysis AV fistula malfunction Encounter for pre-operative examination Clostridioides difficile diarrhea SBO (small bowel obstruction) SBO (small bowel obstruction) Epigastric abdominal pain CHF (congestive heart failure) DVT prophylaxis CKD (chronic kidney disease) stage 5, GFR less than 15 ml/min follows with Dr. Jay Angina pectoris Encounter for pre-operative examination Diabetic foot ulcer Dialysis patient Tobacco abuse PAD (peripheral artery disease) CHF (congestive heart failure) AV fistula left wrist Osteoarthritis Anxiety and depression Hypertension Surgical History S/P cholecystectomy S/P TAVR (transcatheter aortic valve replacement) (2021) SBO (small bowel obstruction) with surgical intervention History of esophagogastroduodenoscopy (EGD) History of colonoscopy History of cholecystectomy History of tooth extraction History of cataract surgery RT/LEFT History of procedure for peripheral vascular disease LEFT LEG (STENT PLACED) Cardiac murmur no cardio Family History Brother Cancer Social History Smoking Status: Current every day smoker Tobacco Type: Cigarettes Age Started Using Tobacco: 16; packs per day: 0.5; Cigarettes Per Day: 10; Second Hand Exposure: No; Do You Dip or Chew Tobacco: No; Tobacco Cessation Education Requested by Patient: No Hx Alcohol Use: Yes Alcohol type: beer Hx Substance Use: No Preferred Language: [place] Island[place] Communication Ability: Effective Visual Impairment: No Limitations Hearing Ability: Hard of Hearing Blackener Required: No Beliefs That Will Affect Care: None marital status: Single Current Living Situation: Alone Current Living Situation Comment: alone in an apartment current occupational status: retired 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 Other Information That Helps Us Care for You: No Feels Safe at Home: Yes Safety Concerns: Feels Safe At This Time Diet: regular during the past year weight has: remained stable Assistive Devices: Oxygen - Continuous and Walker Review of Systems 2 Review of Systems: All systems reviewed & are unremarkable except as noted in HPI & below Physical Exam 2 Constitutional: well developed, well nourished, + ill appearing and + frail appearing; no acute distress Eyes: EOM intact bilaterally and + periorbital abnormality (edema) ENMT: Mouth: + dry oral mucous membranes Respiratory: + labored breathing (slight) and + tachy pneic; no cough and + not able to speak in complete sentence Auscultation: + diminished lung sounds and + crackles; no wheezes Cardiovascular: RRR, no murmur, no edema Extremities: + AV fistula Gastrointestinal (Abdomen): Inspection/Auscultation: normal bowel sounds P ercussion/Palpation: abdomen soft; abdomen nontender Musculoskeletal: Extremities: strength 5/5 throughout Skin: no rashes, warm and dry Neurologic: albarran, fluent speech, no tremor Psychiatric: Orientation: alert, oriented to person, oriented to place (at baseline MS) and cooperative Results & Data Vital Signs (Past 12 Hours) Vital Signs Temp Pulse Pulse Resp BP Pulse Ox Pulse Ox 01/04/25 14:46 92 01/04/25 11:10 36.3 C L 89 22 107/69 98 01/04/25 07:32 84 18 98 01/04/25 07:22 36.3 C L 87 20 119/79 98 01/04/25 07:06 01/04/25 07:01 86 O2 Del Method O2 Del Method O2 Flow Rate 01/04/25 14:46 Room Air 01/04/25 11:10 Nasal Cannula 3 01/04/25 07:32 Nasal Cannula 2 01/04/25 07:22 Nasal Cannula 2 01/04/25 07:06 Nasal Cannula 2 01/04/25 07:01 Laboratory Results 01/03/25 09:39 01/03/25 09:[address] chest1. Cardiomegaly with interstitial pulmonary edema. Moderate right and small left pleural effusions. 2. 2.1 cm branching irregular focus within the right lobe which is new since CT of September 25, 2024. Given interval development, this favors pneumonia or aspiration pneumonitis. A chest CT in 3 months to ensure resolution is recommended. 3. Moderate secretions within the airways, as above. 4. Cardiomegaly and extensive coronary artery calcification. 5. Bilateral lower lobe groundglass opacities which could reflect atelectasis, pneumonia or alveolar pulmonary edema CT a/p 1. No bowel obstruction. No bowel wall thickening on unenhanced exam. 2. Pulmonary edema with moderate right and small left pleural effusions, better depicted on the chest CT which will be reported separately. 3. Trace abdominal ascites. 4. Bilateral nephrolithiasis. No ureteral calculi. No hydronephrosis.
--- NOTE | 2025-01-04 15:44 | XCELERA ---
[id number]
[2025-01-04] MEDS: DOXYCYCLINE HYCLATE 100 MG in DEXTROSE 5% MINI-B 100 ML IV SCH (17:04)
[2025-01-04] MEDS: ONDANSETRON INJ 2 MG/ML 2 ML VIAL IV PRN (19:53)
[2025-01-05] MEDS: GABAPENTIN 100 MG CAP PO PRN (07:39)
[2025-01-05 07:42] LABS: Hematocrit (blood only) 34.8 % (42.0-52.0); Hemoglobin 11.1 g/dl (14.0-18.0); Mean Corpuscular Hemoglobin 31.1 pg (25.0-34.0); Mean Corpuscular Hgb Conc 31.9 g/dL (32.0-36.0); Mean Corpuscular Volume 97.5 fL (80.0-100.0); Mean Platelet Volume 12.4 fL (9.4-12.4); Nucleated RBC # (auto) 0.09 K/uL (0.00-0.12); Nucleated RBC % (auto) 0.9 %; Platelet Count 140 K/uL (130-400); RDW Standard Deviation 64.5 fL (36.4-46.3); Red Blood Count 3.57 M/uL (4.70-6.10); White Blood Count 10.16 K/ul (4.8-10.8)
[2025-01-05 08:06] LABS: BUN Creatinine Ratio 11.8 (10-20); Creatinine Clr Calc Pharmacy 9.9 ml/min; Magnesium 2.1 mg/dl (1.7-2.4); Phosphorus 8.3 mg/dl (2.5-4.9); Potassium 5.1 mmol/L (3.5-5.1)
[2025-01-05] MEDS ORDERED: PHARMACY GLYCEMIC MGMT CONSULT PRN (08:10)
--- NOTE | 2025-01-05 08:13 | Hospitalist Progress Note ---
Date of Service January 05, 2025 Assessment & Plan (1) COPD (chronic obstructive pulmonary disease): (2) ESRD on dialysis: (3) Aortic valve stenosis determined by imaging: (4) Shortness of breath: Plan COPD (chronic obstructive pulmonary disease): SOB likely 2/2 COPD exacerbation vs. HFpEF exacerbation vs. CAP ESRD on HD MWF Tobacco use s/p TAVR 22, potentially worsening, MR, MS -IV solumedrol on admission, then BID -scheduled duoneb -received one dose lasix on admission, further diuresis based on clinical response/ as per nephrology -Nephrology consulted -Cardiology consulted, TTE obtained - significant RCA territory wall motion abnormalities. mildly reduced EF. New RCA territory wall motion abnormalities -supplemental O2 prn -continue abx started in the ED -blood culture -repeat CT chest 3 mo outpatient -nicotine patch Abd pain likely 2/2 the above vs. UTI vs. GERD -UA negat. -PPI -today denies abd. pain NSTEMI, likely type 2 in the setting of the above -troponins 80-100s - cardiology consulted, as above - per cardiology - would not pursue further unless his LV function has deteriorated on echocardiography and even then not sure it would be due to myocardial ischemia -STAT EKG/troponins for chest pain, palpitations HTN -prn hydralazine >180/100 Normocytic anemia likely 2/2 ESRD -monitor DM2, PVD BPH -home meds Hold IVF Renal diet DVT ppx Admission and Anticipated Discharge Date Admission Date: January 03, 2025 Subjective Pt seen in follow up of shortness of breath, abd. pain Pt w/ hx of ESRD, hx of s/p TAVR Pt seen while on HD, appears very tired/ groggy Denies any abd. pain , or chest pain Update: Pt seen again after HD w/ daughter present at the bedside. Pt more alert and eating. Discussed previously code status and made dnr/ dni. Discussed palliative consult at the bedside with daughter - order placed Review of Systems Review of Systems: All systems reviewed & are unremarkable except as noted in Subjective Physical Exam Physical Exam: Constitutional: WD/WN, vitals as a leena (chronically ill appearing M, t hin) Eyes: PERRL, EOMI ENMT: external ear and n ose normal Neck: normal visual insp ection Respiratory: normal respiratory effort (on suppl. O2, basilar crack les) Cardiovascular: Rate/Rhythm: regul ar rhythm Chest (Breasts): Chest: normal insp ection of chest Gastrointestinal ( Abdomen): Inspection/Auscult ation: abdomen nor mal to inspection Percussion/Palpat ion: abdomen soft; abdomen nontender Musculoskeletal: Head/Neck/Chest: n ormocephalic, head atraumatic and ne ck supple Skin: no rashes, warm an d dry Neurologic: PERRL, EOMI, no fa ce palsy, moves ex tremities (more aw harish and alert afte r HD) Psychiatric: A+Ox3, euthymic af fect Results & Data Results & Data Vital Signs (Past 12 Hours) Vital Signs Temp Pulse Pulse Resp BP Pulse Ox O2 Del Method 01/05/25 07:56 36.5 C 86 20 135/68 97 Room Air 01/05/25 06:37 81 16 94 Room Air 01/05/25 04:24 36.4 C L 81 18 120/75 96 Room Air 01/05/25 00:42 80 18 99 Nasal Cannula 01/04/25 23:30 36.6 C 83 20 117/72 93 Room Air 01/04/25 21:46 85 O2 Flow Rate 01/05/25 07:56 01/05/25 06:37 01/05/25 04:24 01/05/25 00:42 2 01/04/25 23:30 01/04/25 21:46 Laboratory Results 01/05/25 01/04/25 Range/Units 06:57 Unknown WBC 10.16 (4.8-10.8) K/ul RBC 3.57 L (4.70-6.10) M/uL Hgb 11.1 L (14.0-18.0) g/dl Hct 34.8 L (42.0-52.0) % MCV 97.5 (80.0-100.0) fL MCH 31.1 (25.0-34.0) pg MCHC 31.9 L (32.0-36.0) g/dL RDW Std Deviation 64.5 H (36.4-46.3) fL RDW Coeff of Danny 18.0 H (11.5-14.5) % Plt Count 140 (130-400) K/uL MPV 12.4 (9.4-12.4) fL Absolute Nucleated RBC 0.09 (0.00-0.12) K/uL Nucleated RBC % (auto) 0.9 % Sodium 131 L D (136-145) mmol/L Potassium 5.1 D (3.5-5.1) mmol/L Chloride 89 L (98-107) mmol/L Carbon Dioxide 26 (21-32) mmol/L Anion Gap 16 H (3-11) BUN 69 H D (6-23) mg/dl Creatinine 5.84 H* D (0.6-1.4) mg/dl Est Cr Clr Drug Dosing 9.9 ml/min eGFR 9.10 BUN/Creatinine Ratio 11.8 (10-20) Glucose 388 H* (70-99(Fasting)) mg/dl Calcium 10.0 (8.6-10.3) mg/dl Phosphorus 8.3 H (2.5-4.9) mg/dl Magnesium 2.1 (1.7-2.4) mg/dl Stool Occult Bld Scrn Negative (Negative) Medications Administered Current Inpatient Medications Acetaminophen (Acetaminophen 325 Mg Tab) 650 mg PO Q4H PRN PRN Reason: Pain or Fever Stop: 02/02/25 14:45 Last Admin: 01/03/25 20:59 Dose: 650 mg Albuterol (Albut/Ipratrop 3mg/0.5mg Neb 3 Ml Vial) 3 ml NEB Q6R RANDY; Protocol Stop: 02/02/25 18:59 Last Admin: 01/05/25 06:37 Dose: 3 ml Albuterol (Albuterol Hfa 8 Gm Inhaler) 2 puffs INH QID PRN PRN Reason: Wheezing Stop: 02/02/25 16:15 Albuterol (Albut/Ipratrop 3mg/0.5mg Neb 3 Ml Vial) 3 ml NEB Q4H PRN; Protocol PRN Reason: shortness of breath or wheezing Stop: 02/02/25 16:15 Aspirin (Aspirin 81 Mg Ectab) 81 mg PO [facility] Stop: 02/03/25 08:59 Last Admin: 01/05/25 07:39 Dose: 81 mg Atorvastatin Calcium (Atorvastatin 40 Mg Tab) 40 mg PO [facility] Stop: 02/02/25 16:15 Last Admin: 01/05/25 07:39 Dose: 40 mg Citalopram Hydrobromide (Citalopram 20 Mg Tab) 20 mg PO PM RANDY Stop: 02/02/25 20:59 Last Admin: 01/04/25 21:38 Dose: 20 mg Finasteride (Finasteride 5 Mg Tab) 5 mg PO HS RANDY Stop: 02/02/25 20:59 Last Admin: 01/04/25 21:37 Dose: 5 mg Fluticasone/Vilanterol (Fluticasone/Vilanterol 100/25mcg 14 Puffs/Inhaler) 1 puffs INH PM RANDY Stop: 02/02/25 20:59 Last Admin: 01/04/25 21:39 Dose: 1 puffs Gabapentin (Gabapentin 100 Mg Cap) 100 mg PO DAILY PRN PRN Reason: NEUROPATHY Stop: 02/02/25 16:15 Last Admin: 01/05/25 07:39 Dose: 100 mg Heparin Sodium (Porcine) (Heparin Sod (Porcine) 1000 Unit/Ml) 500 units IV Q1H RANDY Stop: 01/05/25 09:01 Heparin Sodium (Porcine) (Heparin Sod 5,000 Unit/0.5 Ml Vial) 5,000 units SQ Q12 [facility]Y Stop: 02/04/25 08:59 Hydralazine HCl (Hydralazine Hcl 20 Mg/Ml Vial) 5 mg IV Q4H PRN PRN Reason: hypertension Stop: 02/02/25 15:19 Ceftriaxone Sodium (Rocephin) 1,000 mg in 50 mls @ 100 mls/hr IV Q24H R[facility]Y Stop: 01/06/25 13:59 Last Infusion: 01/04/25 14:44 Dose: Infused Methylprednisolone 60 mg/ (Syringe) 0.96 mls @ 1.5 mls/min IV Q12H [facility] Stop: 02/02/25 20:59 Last Admin: 01/04/25 21:38 Dose: 1.5 mls/min Doxycycline Hyclate 100 mg/ (Dextrose) 100 mls @ 50 mls/hr IV Q12H [facility] Stop: 01/09/25 15:59 Last Infusion: 01/05/25 06:38 Dose: Infused Miscellaneous (Remove Nicoderm Patch) 1 each N/A DAILY@0859 [facility] Stop: 02/03/25 08:58 Last Admin: 01/05/25 07:37 Dose: 1 each Miscellaneous (Velphoro 500 Mg - Order Awaiting Action) 1 each N/A QS [facility]Y Stop: 02/02/25 16:59 Last Admin: 01/05/25 07:36 Dose: Not Given Miscellaneous Information (Pharmacy Glycemic Mgmt Consult) 1 each N/A UD PRN; Protocol PRN Reason: Consult Stop: 02/04/25 08:09 Nicotine (Nicotine 21 Mg/24 Hr Tdsy) 1 patch TD QAM RANDY Stop: 02/02/25 15:29 Last Admin: 01/05/25 07:38 Dose: 1 patch Nitroglycerin (Nitroglycerin Sl 0.4 Mg/Tab Tab) 0.4 mg SL Q5M PRN PRN Reason: Chest Pain Stop: 02/02/25 14:45 Ondansetron HCl (Ondansetron Inj 2 Mg/Ml 2 Ml Vial) 4 mg IV Q6H PRN PRN Reason: Nausea Stop: 02/02/25 14:45 Last Admin: 01/04/25 19:53 Dose: 4 mg Pantoprazole Sodium (Pantoprazole 40 Mg Tab) 40 mg PO DAILY [facility] Stop: 02/03/25 08:59 Last Admin: 01/05/25 07:40 Dose: 40 mg Tamsulosin HCl (Tamsulosin Hcl 0.4 Mg Cap) 0.4 mg PO HS R[facility]Y Stop: 02/02/25 20:59 Last Admin: 01/04/25 21:39 Dose: 0.4 mg Vitamin D (Cholecalciferol 25 Mcg (1000 Units) Tab) 25 mcg PO PM RANDY Stop: 02/02/25 20:59 Last Admin: 01/04/25 21:38 Dose: 25 mcg
[2025-01-05] MEDS: HEPARIN SOD 5,000 UNIT/0.5 ML VIAL SQ SCH (08:15)
--- NOTE | 2025-01-05 08:25 | Pharmacy Report ---
Pharmacy Glycemic Short Note 2 - Date of Service January 05, 2025 - Glycemic Short BSG Results (Last 24 hours): 01/05/25 06:57 Glucose 388 H* OUTPATIENT ANTIDIABETIC REGIMEN: * Linagliptin 5mg PO daily * 6.2% 09/25/24 ASSESSMENT: * 79 yo M, admitted with SOB d/t COPD exacerbation, on IV Steroids, Solu-Medrol 60mg IV Q12H, and now hyperglycemic. ESRD on HD MWF. * Will begin with basal bolus insulin and titrate to goal blood sugar. Will give one time dose of Lantus now, and PRN dose tonight, further dosing tomorrow for insulin naive pt. PLAN FOR INPATIENT GLYCEMIC CONTROL: * Hold outpatient oral diabetes medications * Basal insulin * Lantus 15 units SQ x 1 dose now, then 15 units SQ HS for BSG > 180mg/dl * Bolus insulin * NovoLog per scale ACHS or Q6hrs while NPO * Goal Range: Low 110 mg/dL - High 140 mg/dL * Correction Factor: 30 mg/dL/unit * Nutritional / Prandial insulin per carb ratio of 1 unit per 9 grams CHO consumed
[2025-01-05] MEDS ORDERED: GLUCOSE 40% GEL 15 GM TUBE PO PRN (08:30)
[2025-01-05] MEDS ORDERED: GLUCAGON FOR INJ 1 MG VIAL SQ PRN (08:30)
[2025-01-05] MEDS ORDERED: GLUCOSE 10 TAB/TUBE PO PRN (08:30)
[2025-01-05] MEDS ORDERED: CARBOHYDRATES FOR HYPOGLYCEMIA PO PRN (08:30)
[2025-01-05] MEDS: LANTUS PER UNIT CHARGE SC ONE (09:20)
[2025-01-05] MEDS: INSULIN ASPART PER UNIT CHARGE SC SCH (09:21)
--- NOTE | 2025-01-05 10:20 | Dialysis Progress Note ---
Date of Service January 05, 2025 Assessment & Plan Admission and Anticipated Discharge Date Admission Date: January 03, 2025 Subjective Assessment & Plan (1) End-stage renal disease on hemodialysis: on mwf HD and adherent w/ txs as aggressive UF as tolerated given CT showing pulm edema stopped amlodipine so we have BP to work with for UF. may need midodrine. Aiming for 2.5 kilo off. Reviewed ECHO----new Onset RWMA. Also Aortic stenosis--so between the two next to impossible to really do Aggressive UF. No worsening but does have some perivalvular leak ? pending Cards note after ECHO report. (2) Prosthetic aortic valve stenosis: per cardiology w/u; f/u pending TTE would avoid enoxaparin in ESRD d/t bleeding risk > will suggest heparin gtt to hospitalist (3) COPD (chronic obstructive pulmonary disease): much more symptomatic past 3 mos. As per primary service on nebs, steroids ?aspiration PNA on admission imaging today as well > on ceftriaxone, doxy (4) Abdominal pain: as per primary service; unlikely to have UTI but if concerned check UA; he does void most days lately S----seen during Dialysis. He looks sickly and much more cachectic than before. BP is fine. AVF is fine. Seems confusion and much less interactive but no resp distress and On RA. Physical Exam Constitutional: Looks very ill and Cachectic Respiratory: Auscultation: + crackles, + rales and + wheezes Cardiovascular: RRR Gastrointestinal (Abdomen): normal bowel sounds, soft, nontender, no hepatosplenomegaly Results & Data Vital Signs (Past 12 Hours) Vital Signs Temp Pulse Resp BP Pulse Ox O2 Del Method O2 Flow Rate 01/05/25 07:56 36.5 C 86 20 135/68 97 Room Air 01/05/25 06:37 81 16 94 Room Air 01/05/25 04:24 36.4 C L 81 18 120/75 96 Room Air 01/05/25 00:42 80 18 99 Nasal Cannula 2 01/04/25 23:30 36.6 C 83 20 117/72 93 Room Air
[2025-01-05] MEDS: HEPARIN SOD (PORCINE) 1000 UNIT/ML IV SCH (11:10)
[2025-01-05] MEDS: HEPARIN SOD (PORCINE) 1000 UNIT/ML IV ONE (11:10)
--- NOTE | 2025-01-05 13:56 | Electrocardiogram Report ---
Test Reason : Blood Pressure : */* mmHG Vent. Rate : 85 BPM Atrial Rate : 85 BPM P-R Int : 190 ms QRS Dur : 134 ms QT Int : 450 ms P-R-T Axes : 77 -60 260 degrees QTcB Int : 535 ms Sinus rhythm with sinus arrhythmia with occasional Premature ventricular complexes Left axis deviation Right bundle branch block Minimal voltage criteria for LVH, may be normal variant ( R in aVL ) Left anterior fascicular block Anterior infarct Abnormal ECG When compared with ECG of 29-Dec-2024 14:49, No significant change Confirmed by Kevin Simon ([id number]) on 01/05/2025 1:56:19 PM Referred By: REFERRED SELF Confirmed By: Kevin Simon
--- NOTE | 2025-01-05 14:10 | Communication Note ---
Date of Service: January 05, 2025 I have reviewed patient's recent hospital course and seen and examined the patient while on dialysis today. Pt is groggy and hardly answers my questions. H e looks comfortable though and in no acute distress. Discussed w/ dialysis nurses and pt has been groggy and confused. Pt is cachetic and chronically ill- appearing. I called patient's daughter on the phone and discussed patient's clinical status, updated her about today and also discussed patient's clinical course from prior hospitalizations. Discussed patient's code status. Daughter tells me that patient told her several times lately that he would not want to live like this. Previously (several months ago he wanted to be full code per daughter). Reviewed that previous orders DNR/DNI were made on 11/24/2024 and 12/06/2024. Daughter asks to change status to DNR/DNI (patient was made full code on admission). I can not confirm patient's code status with the patient at this time. Will change code status to DNR/DNI. MD Singh
[2025-01-05] MEDS: SEVELAMER CARBONATE 800 MG TAB PO SCH (14:31)
[2025-01-05] MEDS: PIPERACILLIN/TAZOBACTAM 4.5 GM/100 ML BAG IV SCH (15:12)
[2025-01-05] MEDS: LANTUS PER UNIT CHARGE SC SCH (21:20)
[2025-01-06 07:19] LABS: Hemoglobin 11.9 g/dl (14.0-18.0); Mean Corpuscular Hemoglobin 30.9 pg (25.0-34.0); Mean Corpuscular Hgb Conc 31.3 g/dL (32.0-36.0); Mean Corpuscular Volume 98.7 fL (80.0-100.0); Mean Platelet Volume 12.3 fL (9.4-12.4); Nucleated RBC # (auto) 0.09 K/uL (0.00-0.12); Nucleated RBC % (auto) 0.8 %; Platelet Count 134 K/uL (130-400); RDW Coefficient of Variation 17.7 % (11.5-14.5); RDW Standard Deviation 64.7 fL (36.4-46.3); Red Blood Count 3.85 M/uL (4.70-6.10); White Blood Count 11.47 K/ul (4.8-10.8)
[2025-01-06 07:27] LABS: BUN Creatinine Ratio 9.7 (10-20); Calcium 10.1 mg/dl (8.6-10.3); Creatinine Clr Calc Pharmacy 12.2 ml/min; Magnesium 2.1 mg/dl (1.7-2.4); Phosphorus 5.9 mg/dl (2.5-4.9); Potassium 4.7 mmol/L (3.5-5.1)
--- NOTE | 2025-01-06 08:16 | Hospitalist Progress Note ---
Date of Service January 06, 2025 Assessment & Plan (1) COPD (chronic obstructive pulmonary disease): (2) ESRD on dialysis: (3) Aortic valve stenosis determined by imaging: (4) Shortness of breath: Plan COPD (chronic obstructive pulmonary disease): SOB likely 2/2 COPD exacerbation vs. HFpEF exacerbation vs. CAP ESRD on HD MWF Tobacco use s/p TAVR 22, potentially worsening, MR, MS -IV solumedrol on admission, then BID -scheduled duoneb -received one dose lasix on admission, further diuresis based on clinical response/ as per nephrology -Nephrology consulted -Cardiology consulted, TTE obtained - significant RCA territory wall motion abnormalities. mildly reduced EF. New RCA territory wall motion abnormalities Per cardiology, Dr. Perez - Reviewed patient's recent echocardiogram. Does have slight progression and prosthetic aortic valve stenosis but still not severe. Over the 9 months valve function has deteriorated but do not think it is responsible for his generalized weakness, frailty. Also with new mildly reduced LV function with inferior wall motion. May have some progression of previously moderate RCA disease. Possible that new CAD could be leading to some exertional dyspnea but again seems unlikely that new CAD is again the cause of the patient's generalized decline. Discussed cardiac catheterization/ALBERTO to further evaluate for CAD/valve deterioration. For now we will hold off cardiac testing. Continue aspirin, statin. If BP allows consider starting ARB. -supplemental O2 prn -continue abx started in the ED -blood culture - negat. for 48 hrs -repeat CT chest 3 mo outpatient -nicotine patch Abd pain likely 2/2 the above vs. UTI vs. GERD -UA negat. -PPI -now denies abd. pain NSTEMI, likely type 2 in the setting of the above -troponins 80-100s - cardiology consulted, as above -STAT EKG/troponins for chest pain, palpitations HTN -prn hydralazine >180/100 Normocytic anemia likely 2/2 ESRD -monitor DM2, PVD BPH -home meds Renal diet DVT ppx Admission and Anticipated Discharge Date Admission Date: January 03, 2025 Subjective Pt seen in follow up of shortness of breath, abd. pain Pt w/ hx of ESRD, hx of s/p TAVR Denies any abd. pain , or chest pain Yesterday discussed w/ daughter code status and made dnr/ dni. Discussed palliative consult and order placed Today pt is more awake and alert. seen eating. Review of Systems Review of Systems: All systems reviewed & are unremarkable except as noted in Subjective Physical Exam Physical Exam: Constitutional: WD/WN, vitals as a leena (chronically ill appearing M, t hin) Eyes: PERRL, EOMI ENMT: external ear and n ose normal Neck: normal visual insp ection Respiratory: normal respiratory effort , basilar crackles Cardiovascular: Rate/Rhythm: regul ar rhythm Chest (Breasts): Chest: normal insp ection of chest Gastrointestinal ( Abdomen): Inspection/Auscult ation: abdomen nor mal to inspection Percussion/Palpat ion: abdomen soft; abdomen nontender Musculoskeletal: Head/Neck/Chest: n ormocephalic, head atraumatic and ne ck supple Skin: no rashes, warm an d dry Neurologic: PERRL, EOMI, no fa ce palsy, moves ex tremities (more aw harish and alert now) Psychiatric: A+Ox3, euthymic af fect Results & Data Results & Data Vital Signs (Past 12 Hours) Vital Signs Temp Pulse Pulse Pulse Resp BP Pulse Ox 01/06/25 08:00 36.8 C 93 H 18 130/65 95 01/06/25 07:43 78 18 92 01/06/25 02:56 36.4 C L 80 20 124/76 92 01/06/25 00:32 84 18 99 01/05/25 22:38 36.4 C L 93 H 20 113/73 92 01/05/25 22:02 92 H 01/05/25 20:18 85 16 99 01/05/25 20:16 36.6 C 88 18 110/71 96 O2 Del Method O2 Flow Rate 01/06/25 08:00 Nasal Cannula 2 01/06/25 07:43 Nasal Cannula 2 01/06/25 02:56 Nasal Cannula 2 01/06/25 00:32 Room Air 01/05/25 22:38 Room Air 01/05/25 22:02 01/05/25 20:18 Room Air 01/05/25 20:16 Room Air Laboratory Results 01/06/25 01/06/25 01/05/25 Range/Units 07:16 06:02 20:59 WBC 11.47 H (4.8-10.8) K/ul RBC 3.85 L (4.70-6.10) M/uL Hgb 11.9 L (14.0-18.0) g/dl Hct 38.0 L (42.0-52.0) % MCV 98.7 (80.0-100.0) fL MCH 30.9 (25.0-34.0) pg MCHC 31.3 L (32.0-36.0) g/dL RDW Std Deviation 64.7 H (36.4-46.3) fL RDW Coeff of Danny 17.7 H (11.5-14.5) % Plt Count 134 (130-400) K/uL MPV 12.3 (9.4-12.4) fL Absolute Nucleated RBC 0.09 (0.00-0.12) K/uL Nucleated RBC % (auto) 0.8 % Sodium 136 (136-145) mmol/L Potassium 4.7 (3.5-5.1) mmol/L Chloride 94 L (98-107) mmol/L Carbon Dioxide 29 (21-32) mmol/L Anion Gap 13 H (3-11) BUN 46 H D (6-23) mg/dl Creatinine 4.75 H* D (0.6-1.4) mg/dl Est Cr Clr Drug Dosing 12.2 ml/min eGFR 11.66 BUN/Creatinine Ratio 9.7 L (10-20) Glucose 222 H (70-99(Fasting)) mg/dl POC Glucose 95 180 H (70-99) mg/dl Calcium 10.1 (8.6-10.3) mg/dl Phosphorus 5.9 H (2.5-4.9) mg/dl Magnesium 2.1 (1.7-2.4) mg/dl 01/05/25 01/05/25 01/05/25 Range/Units 16:58 14:18 11:30 WBC (4.8-10.8) K/ul RBC (4.70-6.10) M/uL Hgb (14.0-18.0) g/dl Hct (42.0-52.0) % MCV (80.0-100.0) fL MCH (25.0-34.0) pg MCHC (32.0-36.0) g/dL RDW Std Deviation (36.4-46.3) fL RDW Coeff of Danny (11.5-14.5) % Plt Count (130-400) K/uL MPV (9.4-12.4) fL Absolute Nucleated RBC (0.00-0.12) K/uL Nucleated RBC % (auto) % Sodium (136-145) mmol/L Potassium (3.5-5.1) mmol/L Chloride (98-107) mmol/L Carbon Dioxide (21-32) mmol/L Anion Gap (3-11) BUN (6-23) mg/dl Creatinine (0.6-1.4) mg/dl Est Cr Clr Drug Dosing ml/min eGFR BUN/Creatinine Ratio (10-20) Glucose (70-99(Fasting)) mg/dl POC Glucose 182 H 161 H 179 H (70-99) mg/dl Calcium (8.6-10.3) mg/dl Phosphorus (2.5-4.9) mg/dl Magnesium (1.7-2.4) mg/dl 01/05/25 Range/Units 09:18 WBC (4.8-10.8) K/ul RBC (4.70-6.10) M/uL Hgb (14.0-18.0) g/dl Hct (42.0-52.0) % MCV (80.0-100.0) fL MCH (25.0-34.0) pg MCHC (32.0-36.0) g/dL RDW Std Deviation (36.4-46.3) fL RDW Coeff of Danny (11.5-14.5) % Plt Count (130-400) K/uL MPV (9.4-12.4) fL Absolute Nucleated RBC (0.00-0.12) K/uL Nucleated RBC % (auto) % Sodium (136-145) mmol/L Potassium (3.5-5.1) mmol/L Chloride (98-107) mmol/L Carbon Dioxide (21-32) mmol/L Anion Gap (3-11) BUN (6-23) mg/dl Creatinine (0.6-1.4) mg/dl Est Cr Clr Drug Dosing ml/min eGFR BUN/Creatinine Ratio (10-20) Glucose (70-99(Fasting)) mg/dl POC Glucose 420 H* (70-99) mg/dl Calcium (8.6-10.3) mg/dl Phosphorus (2.5-4.9) mg/dl Magnesium (1.7-2.4) mg/dl Medications Administered Current Inpatient Medications Acetaminophen (Acetaminophen 325 Mg Tab) 650 mg PO Q4H PRN PRN Reason: Pain or Fever Stop: 02/02/25 14:45 Last Admin: 01/05/25 19:50 Dose: 650 mg Albuterol (Albut/Ipratrop 3mg/0.5mg Neb 3 Ml Vial) 3 ml NEB Q6R RANDY; Protocol Stop: 02/02/25 18:59 Last Admin: 01/06/25 07:43 Dose: 3 ml Albuterol (Albuterol Hfa 8 Gm Inhaler) 2 puffs INH QID PRN PRN Reason: Wheezing Stop: 02/02/25 16:15 Albuterol (Albut/Ipratrop 3mg/0.5mg Neb 3 Ml Vial) 3 ml NEB Q4H PRN; Protocol PRN Reason: shortness of breath or wheezing Stop: 02/02/25 16:15 Aspirin (Aspirin 81 Mg Ectab) 81 mg PO QAM RANDY Stop: 02/03/25 08:59 Last Admin: 01/05/25 07:39 Dose: 81 mg Atorvastatin Calcium (Atorvastatin 40 Mg Tab) 40 mg PO QAM [facility]Y Stop: 02/02/25 16:15 Last Admin: 01/05/25 07:39 Dose: 40 mg Citalopram Hydrobromide (Citalopram 20 Mg Tab) 20 mg PO PM [facility]Y Stop: 02/02/25 20:59 Last Admin: 01/05/25 21:22 Dose: 20 mg Dextrose (Dextrose 50% 50 Ml Syringe) 25 - 50 ml IV UD PRN; Protocol PRN Reason: Hypoglycemia Protocol Stop: 02/04/25 08:29 Finasteride (Finasteride 5 Mg Tab) 5 mg PO HS RANDY Stop: 02/02/25 20:59 Last Admin: 01/05/25 21:22 Dose: 5 mg Fluticasone/Vilanterol (Fluticasone/Vilanterol 100/25mcg 14 Puffs/Inhaler) 1 puffs INH PM [facility]ANDY Stop: 02/02/25 20:59 Last Admin: 01/05/25 21:23 Dose: 1 puffs Gabapentin (Gabapentin 100 Mg Cap) 100 mg PO DAILY PRN PRN Reason: NEUROPATHY Stop: 02/02/25 16:15 Last Admin: 01/05/25 07:39 Dose: 100 mg Glucagon (Glucagon For Inj 1 Mg Vial) 1 mg SQ UD PRN; Protocol PRN Reason: Hypoglycemia Protocol Stop: 02/04/25 08:29 Glucose (Glucose 40% Gel 15 Gm Tube) 15 - 30 gm PO UD PRN; Protocol PRN Reason: Hypoglycemia Protocol Stop: 02/04/25 08:29 Glucose (Glucose 10 Tab/Tube) 4 - 8 tab PO UD PRN; Protocol PRN Reason: Hypoglycemia Protocol Stop: 02/04/25 08:29 Heparin Sodium (Porcine) (Heparin Sod 5,000 Unit/0.5 Ml Vial) 5,000 units SQ Q12 [facility]Y Stop: 02/04/25 08:59 Last Admin: 01/05/25 21:19 Dose: 5,000 units Hydralazine HCl (Hydralazine Hcl 20 Mg/Ml Vial) 5 mg IV Q4H PRN PRN Reason: hypertension Stop: 02/02/25 15:19 Methylprednisolone 60 mg/ (Syringe) 0.96 mls @ 1.5 mls/min IV Q12H [facility] Stop: 02/02/25 20:59 Last Admin: 01/05/25 21:22 Dose: 1.5 mls/min Doxycycline Hyclate 100 mg/ (Dextrose) 100 mls @ 50 mls/hr IV Q12H [facility] Stop: 01/09/25 15:59 Last Infusion: 01/06/25 06:00 Dose: Infused Piperacillin Sod/Tazobactam Sod (Zosyn) 4.5 gm in 100 mls @ 25 mls/hr IV Q12H [facility]; Protocol Stop: 01/12/25 14:59 Last Admin: 01/06/25 03:53 Dose: 25 mls/hr Insulin Aspart (Insulin Aspart Per Unit Charge) 0 units SC ACHS [facility] Stop: 02/04/25 08:29 Last Admin: 01/05/25 21:20 Dose: 2 units Insulin Glargine (Lantus Per Unit Charge) 0 units SC HS [facility]; Protocol Stop: 02/04/25 20:59 Last Admin: 01/05/25 21:20 Dose: 15 units Insulin Glargine (Lantus Per Unit Charge) 15 units SC DAILY [facility] Stop: 02/05/25 08:59 Miscellaneous (Remove Nicoderm Patch) 1 each N/A DAILY@0859 [facility] Stop: 02/03/25 08:58 Last Admin: 01/05/25 07:37 Dose: 1 each Miscellaneous (Carbohydrates For Hypoglycemia ) 15 - 30 gm PO UD PRN PRN Reason: Hypoglycemia Treatment Stop: 02/04/25 08:29 Miscellaneous Information (Pharmacy Glycemic Mgmt Consult) 1 each N/A UD PRN; Protocol PRN Reason: Consult Stop: 02/04/25 08:09 Nicotine (Nicotine 21 Mg/24 Hr Tdsy) 1 patch TD QAM [facility] Stop: 02/02/25 15:29 Last Admin: 01/05/25 07:38 Dose: 1 patch Nitroglycerin (Nitroglycerin Sl 0.4 Mg/Tab Tab) 0.4 mg SL Q5M PRN PRN Reason: Chest Pain Stop: 02/02/25 14:45 Ondansetron HCl (Ondansetron Inj 2 Mg/Ml 2 Ml Vial) 4 mg IV Q6H PRN PRN Reason: Nausea Stop: 02/02/25 14:45 Last Admin: 01/05/25 19:44 Dose: 4 mg Pantoprazole Sodium (Pantoprazole 40 Mg Tab) 40 mg PO DAILY [facility] Stop: 02/03/25 08:59 Last Admin: 01/05/25 07:40 Dose: 40 mg Sevelamer Carbonate (Sevelamer Carbonate 800 Mg Tab) 800 mg PO TIDM RANDY; Protocol Stop: 02/04/25 13:14 Last Admin: 01/05/25 17:21 Dose: Not Given Tamsulosin HCl (Tamsulosin Hcl 0.4 Mg Cap) 0.4 mg PO HS [facility] Stop: 02/02/25 20:59 Last Admin: 01/05/25 21:23 Dose: 0.4 mg Vitamin D (Cholecalciferol 25 Mcg (1000 Units) Tab) 25 mcg PO PM [facility] Stop: 02/02/25 20:59 Last Admin: 01/05/25 21:22 Dose: 25 mcg
[2025-01-06] MEDS: LANTUS PER UNIT CHARGE SC SCH (08:21)
--- NOTE | 2025-01-06 11:12 | Fluoroscopy Report ---
MODIFIED BARIUM SWALLOW CLINICAL HISTORY: r/o aspiration COMPARISON STUDY: None. FLUOROSCOPY TIME: 2.15 minutes. Ka,r: 6.34 mGy TECHNIQUE: A modified barium swallow was performed in conjunction with Speech Pathology. The patient ingested varying consistencies of barium containing material. Video fluoroscopy was performed. FINDINGS: Penetration was noted with thin liquids by spoon. There was no aspiration. No aspiration wa s identified with thin liquids by cup or straw. There was no aspiration with nectar thick liquids, pu dding or cookie and pudding consistencies. Epiglottic inversion was normal. Laryngeal elevation was n ormal. IMPRESSION: 1. No tracheal aspiration. Intact swallowing mechanism. 2. Full recommendations by Speech pathology to follow. ACT 112: Negative or not required by law. Electronically signed by: Osito Zmabrano M.D. 01/06/2025 11:11 AM
--- NOTE | 2025-01-06 11:35 | Pharmacy Report ---
Pharmacy Glycemic Short Note 2 - Date of Service January 06, 2025 - Glycemic Short BSG Results (Last 24 hours): 01/05/25 01/05/25 01/05/25 14:18 16:58 20:59 Glucose POC Glucose 161 H 182 H 180 H 01/06/25 01/06/25 01/06/25 06:02 07:16 11:05 Glucose 222 H POC Glucose 95 97 OUTPATIENT ANTIDIABETIC REGIMEN: * Linagliptin 5mg PO daily * 6.2% 09/25/24 ASSESSMENT: 01/06 * Patient received 45 units of insulin yesterday, 30 units basal, blood sugars at goal today. * Remains on Solu-Medrol 60mg IV Q12H. Will continue Lantus 15 units SQ AM, and decrease HS PRN dose to prevent hypoglycemia. 01/05 * 79 yo M, admitted with SOB d/t COPD exacerbation, on IV Steroids, Solu-Medrol 60mg IV Q12H, and now hyperglycemic. ESRD on HD MWF. * Will begin with basal bolus insulin and titrate to goal blood sugar. Will give one time dose of Lantus now, and PRN dose tonight, further dosing tomorrow for insulin naive pt. PLAN FOR INPATIENT GLYCEMIC CONTROL: * Hold outpatient oral diabetes medications * Basal insulin * Lantus 15 units SQ AM, 12 units SQ HS for BSG > 180mg/dl * Bolus insulin * NovoLog per scale ACHS or Q6hrs while NPO * Goal Range: Low 110 mg/dL - High 140 mg/dL * Correction Factor: 30 mg/dL/unit * Nutritional / Prandial insulin per carb ratio of 1 unit per 9 grams CHO consumed
--- NOTE | 2025-01-06 11:51 | Nephrology Progress Note ---
Date of Service January 06, 2025 Assessment & Plan Admission and Anticipated Discharge Date Admission Date: January 03, 2025 Subjective Assessment & Plan (1) End-stage renal disease on hemodialysis: on mwf HD and adherent w/ txs as aggressive UF as tolerated given CT showing pulm edema stopped amlodipine so we have BP to work with for UF. Reviewed ECHO----new Onset RWMA. Also Aortic stenosis--so between the two next to impossible to really do Aggressive UF. No worsening but does have some perivalvular leak ? pending Cards note after ECHO report. Dialysis yesterday--we took 2 liters off. Plan for same tomorrow--3.5 hrs and 2 kilo off. 2k bath. 4000 units epo (2) Prosthetic aortic valve stenosis: per cardiology w/u; f/u pending TTE would avoid enoxaparin in ESRD d/t bleeding risk > will suggest heparin gtt to hospitalist (3) COPD (chronic obstructive pulmonary disease): much more symptomatic past 3 mos. As per primary service on nebs, steroids ?aspiration PNA on admission imaging today as well > on ceftriaxone, doxy (4) Abdominal pain: as per primary service; unlikely to have UTI but if concerned check UA; he does void most days lately S----He looks sickly and much more cachectic than before. BP is fine. AVF is fine. Did eat most of the meal. no resp distress and On 2 liters now. BP is good now. Physical Exam Constitutional: Looks very ill and Cachectic. awake and alert though Respiratory: Auscultation: + crackles, + rales and + wheezes Cardiovascular: RRR Gastrointestinal (Abdomen): normal bowel sounds, soft, nontender, no hepatosplenomegaly Results & Data Vital Signs (Past 12 Hours) Vital Signs Temp Pulse Pulse Resp BP Pulse Ox O2 Del Method 01/06/25 11:48 36.5 C 92 H 18 128/65 96 Nasal Cannula 01/06/25 08:00 36.8 C 93 H 18 130/65 95 Nasal Cannula 01/06/25 07:43 78 18 92 Nasal Cannula 01/06/25 02:56 36.4 C L 80 20 124/76 92 Nasal Cannula 01/06/25 00:32 84 18 99 Room Air O2 Flow Rate 01/06/25 11:48 2 01/06/25 08:00 2 01/06/25 07:43 2 01/06/25 02:56 2 01/06/25 00:32
--- NOTE | 2025-01-06 14:21 | Cardiology Progress Note ---
Date of Service January 06, 2025 Assessment & Plan (1) Prosthetic aortic valve stenosis: Plan [facility] #20 04/2022 [facility] PV 3.6, MG 27, DI 0.35 echo 11/2024 --> PV 3.9, MG 33, DI 0.26 2. Mild to moderate MR/Mild MS 3. Ischemic heart disease -- EF 45-50% with inferior wma; cath 01/2022 (40% mid RCA, 45% mid LCx, 50% D1) 4. ESRD on HDLUE fistula MWF Dr. Jay 5. Type 2 diabetes 6. PADleft SFA stent, asymptomatic carotid [facility] vascular 7. COPD with ongoing tobacco abuse 8. HypertensionCCB Reviewed patient's recent echocardiogram. Does have slight progression and prosthetic aortic valve stenosis but still not severe. Over the 9 months valve function has deteriorated but do not think it is responsible for his generalized weakness, frailty. Also with new mildly reduced LV function with inferior wall motion. May have some progression of previously moderate RCA disease. Possible that new CAD could be leading to some exertional dyspnea but again seems unlikely that new CAD is again the cause of the patient's generalized decline. Talked to patient and his daughter Krystal about cardiac catheterization/ALBERTO to further evaluate for CAD/valve deterioration. Both concerned going through additional procedures with his current frailty. I share their concerns and feel that it is unlikely these procedures would significantly improve symptoms at this time. For now we will hold off cardiac testing. Continue aspirin, statin. If BP allows consider starting ARB. Reconsider cardiac testing if clinical condition improves. Admission and Anticipated Discharge Date Admission Date: January 03, 2025 Subjective Reports feeling fine today. Denies any chest pain. He is presenting right abdominal/flank pain resolved. Denies significant shortness of breath. Telemetry reviewedno events Review of Systems Review of Systems: All systems reviewed & are unremarkable except as noted in HPI & below Physical Exam Physical Exam: General: Frail, NC in place HEENT: Sclerae anicteric Lungs: Lungs clear no crackles Cardiac: Regular rate and rhythm, 2 out of 6 systolic ejection murmur at left upper sternal border Vascular: Nonpalpable radial on right, left upper extremity fistula with thrill Abdomen: Soft, nontender Extremities: Well perfused, no peripheral edema, diminished DP/PT pulses Psych: Sleepy, oriented x 3 Results & Data Vital Signs (Past 12 Hours) Vital Signs Temp Pulse Pulse Pulse Resp BP Pulse Ox 01/06/25 14:00 88 01/06/25 13:07 90 18 97 01/06/25 11:48 97.7 F 92 H 18 128/65 96 01/06/25 08:00 01/06/25 08:00 98.2 F 93 H 18 130/65 95 01/06/25 07:43 78 18 92 01/06/25 07:00 80 01/06/25 02:56 97.5 F L 80 20 124/76 92 O2 Del Method O2 Flow Rate 01/06/25 14:00 01/06/25 13:07 Room Air 01/06/25 11:48 Nasal Cannula 2 01/06/25 08:00 Nasal Cannula 2 01/06/25 08:00 Nasal Cannula 2 01/06/25 07:43 Nasal Cannula 2 01/06/25 07:00 01/06/25 02:56 Nasal Cannula 2 PG Care Time/CCT Total # of Minutes Spent Total Time Spent with Patient: Total time spent is greater than 50% in coordination of care (as documented) at patient's floor/unit and/or counseling patient: Coding Level of Care Code 72875 SUB INP/OBS CARE 3/50MIN Diagnoses Prosthetic aortic valve stenosis T82.857A
--- NOTE | 2025-01-06 16:13 | Palliative Care Consultation ---
Date of Consultation January 06, 2025 Assessment & Plan (1) Palliative care by specialist: Spoke with pt's dtr Krystal Medina ([phone]) via phone today. Introduced Palliative Medicine and explained our role in advanced care planning, symptom management and navigation through the progression of life limiting disease. Patient and/or family were receptive to palliative services for goals of care discussions. Reviewed we are different from hospice, a home health nurse visiting service. (2) Counseling regarding goals of care: Spoke with pt at bedside, no visitors present. Pt was awake and alert and pleasantly communicative. Although he was A&Ox3, he was not able to relay understanding of his current hospital course nor PMHx. When questioned, he mostly responded "you need to talk with my daughter". I attempted to call Krystal from room without success. I did reach her later in day and discussed GOC/ACP for 45 minutes. Krystal shared that the pt had been living independently prior to this admission but he was having obvious cognitive and functional decline over several months.She shared that the pt is a and she is his only child. She shared the "we are all each other have". Pt lives alone in private residence and Krystal visits often to check on him. Krystal shared that she has spoken with cardiology and nephrology and "it doesn't look good". She shared that he has always tolerated HD well but recently he has been expressing to her that "he just wants to quit, he says he cannot take it anymore". She shared that she has always encouraged him to continue on with treatments but that lately he has been so miserable that she wonders if that was the right thing to do. She expressed concern that he is suffering physically and emotionally. We discussed the pt's heart disease and prosthetic valve, she shared that cardiology had told her that there is nothing they can do because he is to sick for any surgery. Discussed nephrology evaluation and poor prognosis with failure to thrive, worsening heart disease, worsening COPD and current poor tolerance for aggressive HD . Krystal shared that she knows that the pt does not want HD anymore, but "he is all I have and I don't want to loose him too". Krystal shared that she "knows that he would just want to go back home and " but she has a hard time even thinking about letting go. Discussed transition to comfort directed care as a refocusing of attention from prolonging life (and suffering) to maximizing quality of life over quantity. She asked if he would be eligible for hospice care. Discussed hospice benefit: an interdisciplinary program offered by nurses, nurses aides, social workers, chaplains and a medical billing coder for patients with a terminal condition and a life expectancy of less than 6 months. This is covered by Medicare at 100%/no out of pocket expense to patient and all meds/supplies needed by patient for the reason they are on hospice are paid for/covered by hospice. The goal is assure quality of life of the patient in their home setting (home, prison, inpatient hospice setting) by providing symptoms management, psychosocial and spiritual support. However, they cannot offer 24 hours care and if the family is unable to provide that care, they will have to consider personal care with out of pocket cost vs. prison placement. We discussed the goals of hospice as a patient service and the goals of care; we discussed EOL trajectories and transitions serafin the emotional impact of realizing mortality as a concrete reality from prior abstract considerations. Pt was reassured that no matter where they are along this trajectory, they are not alone - their medical team will remain by their side through their journey. Discussed the pros/cons of accepting help when especially weakened and distres sed by pain-which would also help provide relief/decrease caregiver burden/strain. Krystal again shared how difficult even thinking about the pt dying is for her and stated that she would like to take some time to absorb and consider things. she shared that she would like to meet in person to discuss further after she has had some time to consider options and speak further with her father. Meeting to continue GOC discussion scheduled for Sunday (01/09/25) at 11:30. Plan GOC meeting will be held with Dr. Higginbotham, the pt and dtr Krystal on 01/09/25 at 11:30 at bedside. History of Present Illness Reason for Consultation: goals of care Requesting Physician: Hans Winters MD Attending Physician: Hans Winters MD History of Present Illness 79M pmh ESRD on HD MWF c/b secondary hyperparathyroidism, anemia of chronic dx, DM2 c/b neuropathy, retinopathy, PVD, COPD w/current nicotine abuse, htn, s/p TAVR 2021, MR, Mitral stenosis, BPH who presents to the ED after 2 weeks of abdominal pain and SOB. Pt was seen in ED few days ago and d/c home without resolution of his symptoms. He also was seen by cardiology, who noted potential worsening of his , also with MR and MS, though cardiology is unclear this is related to his progressive respiratory failure, with potential ALBERTO to further evaluate. Allergies Allergy/AdvReac Type Severity Reaction Status Date / Time No Known Allergies Allergy Verified 12/30/24 15:59 Home Medications Medication Instructions Recorded Confirmed Type atorvastatin 40 mg tablet 40 mg PO UD 07/31/19 01/03/25 History cholecalciferol (vitamin D3) 25 1,000 unit PO PM 07/31/19 01/03/25 History mcg (1,000 unit) tablet (Vitamin D3) finasteride 5 mg tablet 5 mg PO HS 07/31/19 01/03/25 History aspirin 81 mg tablet,delayed 81 mg PO QAM 01/06/20 01/03/25 History release albuterol sulfate 90 mcg/actuation 2 puff inhalation QID PRN Wheezing 04/09/24 01/03/25 History aerosol inhaler fluticasone furoate 200 1 inh inhalation UD PRN Shortness 04/09/24 01/03/25 History mcg-vilanterol 25 mcg/dose Of Breath Or Wheezing inhalation powder (Breo Ellipta) tamsulosin 0.4 mg capsule 0.4 mg PO HS 08/21/24 01/03/25 History amlodipine 5 mg tablet 5 mg PO QAM 09/24/24 01/03/25 History citalopram 20 mg tablet 20 mg PO UD 09/24/24 01/03/25 History gabapentin 100 mg capsule 100 mg PO DAILY PRN NEUROPATHY 09/24/24 01/03/25 History sucroferric oxyhydroxide 500 mg 500 mg PO TIDM 09/24/24 01/03/25 History chewable tablet (Velphoro) linagliptin 5 mg tablet (Tradjenta) 5 mg PO UD 11/24/24 01/03/25 History ipratropium 0.5 mg-albuterol 3 mg 3 ml NEB Q4H PRN shortness of 11/27/24 01/03/25 Rx (2.5 mg base)/3 mL nebulization breath or wheezing #90 mL soln fluticasone furoate 100 1 inh inhalation UD 01/03/25 01/03/25 History mcg-vilanterol 25 mcg/dose inhalation powder (Breo Ellipta) Patient History Medical History Open wound of right lower leg Open wound of right heel Non-ST elevation WI (NSTEMI) Traumatic open wound of left lower leg Gram-positive bacteremia Severe sepsis Bacteremia due to Enterococcus Acute hyponatremia Elevated troponin I level Dialysis AV fistula malfunction Encounter for pre-operative examination Clostridioides difficile diarrhea SBO (small bowel obstruction) SBO (small bowel obstruction) Epigastric abdominal pain CHF (congestive heart failure) DVT prophylaxis CKD (chronic kidney disease) stage 5, GFR less than 15 ml/min follows with Dr. Jay Angina pectoris Encounter for pre-operative examination Diabetic foot ulcer Dialysis patient Tobacco abuse PAD (peripheral artery disease) CHF (congestive heart failure) AV fistula left wrist Osteoarthritis Anxiety and depression Hypertension Surgical History S/P cholecystectomy S/P TAVR (transcatheter aortic valve replacement) (2021) SBO (small bowel obstruction) with surgical intervention History of esophagogastroduodenoscopy (EGD) History of colonoscopy History of cholecystectomy History of tooth extraction History of cataract surgery RT/LEFT History of procedure for peripheral vascular disease LEFT LEG (STENT PLACED) Cardiac murmur no cardio Family History Brother Cancer Social History Smoking Status: Current every day smoker Tobacco Type: Cigarettes Age Started Using Tobacco: 16; packs per day: 0.5; Cigarettes Per Day: 10; Second Hand Exposure: No; Do You Dip or Chew Tobacco: No; Tobacco Cessation Education Requested by Patient: No Hx Alcohol Use: Yes Alcohol type: beer Hx Substance Use: No Preferred Language: Urdu Communication Ability: Effective Visual Impairment: No Limitations Hearing Ability: Hard of Hearing Kayak Maker Required: No Beliefs That Will Affect Care: None marital status: Single Current Living Situation: Alone Current Living Situation Comment: alone in an apartment current occupational status: retired 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 Other Information That Helps Us Care for You: No Feels Safe at Home: Yes Safety Concerns: Feels Safe At This Time Diet: regular during the past year weight has: remained stable Assistive Devices: Walker Review of Systems Review of Systems: All systems reviewed & are unremarkable except as noted in HPI & below patient denies any discomfort today Physical Exam Constitutional: well developed, well nourished and + ill appearing Eyes: PERRL, conjunctivae normal, anicteric sclerae Neck: trachea midline, no thyromegaly Respiratory: normal respiratory effort, lungs clear to auscultation Cardiovascular: RRR, no murmur, no edema Gastrointestinal (Abdomen): normal bowel sounds, soft, nontender, no hepatosplenomegaly Skin: no rashes, warm and dry pale Neurologic: alert and oriented x3 Results & Data Vital Signs (Past 12 Hours) Vital Signs Temp Pulse Pulse Resp BP Pulse Ox O2 Del Method 01/06/25 14:00 88 01/06/25 13:07 90 18 97 Room Air 01/06/25 11:48 36.5 C 92 H 18 128/65 96 Nasal Cannula 01/06/25 08:00 Nasal Cannula 01/06/25 08:00 36.8 C 93 H 18 130/65 95 Nasal Cannula 01/06/25 07:43 78 18 92 Nasal Cannula 01/06/25 07:00 80 O2 Flow Rate 01/06/25 14:00 01/06/25 13:07 01/06/25 11:48 2 01/06/25 08:00 2 01/06/25 08:00 2 01/06/25 07:43 2 01/06/25 07:00 Laboratory Results Abnormal lab results 01/05/25 01/05/25 01/06/25 Range/Units 16:58 20:59 06:02 WBC 11.47 H (4.8-10.8) K/ul RBC 3.85 L (4.70-6.10) M/uL Hgb 11.9 L (14.0-18.0) g/dl Hct 38.0 L (42.0-52.0) % MCHC 31.3 L (32.0-36.0) g/dL RDW Std Deviation 64.7 H (36.4-46.3) fL RDW Coeff of Danny 17.7 H (11.5-14.5) % Chloride 94 L (98-107) mmol/L Anion Gap 13 H (3-11) BUN 46 H D (6-23) mg/dl Creatinine 4.75 H* D (0.6-1.4) mg/dl BUN/Creatinine Ratio 9.7 L (10-20) Glucose 222 H (70-99(Fasting)) mg/dl POC Glucose 182 H 180 H (70-99) mg/dl Phosphorus 5.9 H (2.5-4.9) mg/dl Diagnostic Findings Abdomen/Pelvis CT 01/03/25 11:56 CT OF THE ABDOMEN AND PELVIS WITHOUT CONTRAST CLINICAL HISTORY: Abdominal pain. COMPARISON STUDY: CT of the abdomen and pelvis December 29, 2024. TECHNIQUE: Axial images of the abdomen and pelvis were obtained without IV contrast. Images were reviewed in the axial, sagittal, and coronal planes. Au tomated exposure control was utilized for the study. A dose lowering technique was utilized adhering to the principles of ALARA. FINDINGS: Moderate right and small left pleural effusions and pulmonary edema are better depicted on the chest CT which will be reported separately. No pneumatosis, free air or portal venous gas is present. Mild biliary ductal dilatation remains unchanged and likely related to cholecystectomy. No hepatic lesions are identified on unenhanced exam. A small amount of perihepatic ascites is present. Left adrenal nodularity is unchanged from earlier exams. This is likely benign. Spleen and pancreas are unremarkable. Both kidneys are markedly atrophic. This is unchanged. There are numerous bilateral renal calculi. There are no ureteral calculi. There is no hydronephrosis. Numerous bilateral renal lesions are suboptimally assessed on unenhanced exam. The water attenuation lesions favor cysts. The hyperdense lesions are nonspecific but may represent proteinaceous cysts. There is no evidence for a bowel obstruction. No abdominal or pelvic lymphadenopathy is present. This extensive aortoiliac atherosclerotic plaque. No lymphadenopathy is present. There are no fluid collections. No acute fractures within the lumbar spine the pelvis or hips. IMPRESSION: 1. No bowel obstruction. No bowel wall thickening on unenhanced exam. 2. Pulmonary edema with moderate right and small left pleural effusions, better depicted on the chest CT which will be reported separately. 3. Trace abdominal ascites. 4. Bilateral nephrolithiasis. No ureteral calculi. No hydronephrosis. ACT 112: Negative or not required by law. Electronically signed by: Osito Zambrano M.D. 01/03/2025 12:[address] 01/03/25 11:56 CT OF THE CHEST WITHOUT IV CONTRAST CLINICAL HISTORY: Abdominal pain. COMPARISON STUDY: Chest CT September 25, 2024. Chest radiograph December 08, 2024. CT DOSE: 1447.6 mGy.cm TECHNIQUE: Axial images of the chest were obtained without IV contrast. Images were reviewed in the axial, sagittal, and coronal planes. IV contrast was not administered for this examination. Automated exposure control was utilized for the study. A dose lowering technique was utilized adhering to the principles of ALARA. FINDINGS: Subcutaneous lesions of the right shoulder are unchanged. These favor sebaceous cysts. Prominent mediastinal and bilateral hilar lymph nodes are present. There is a prosthetic aortic valve. The heart is moderately enlarged. Extensive coronary artery calcification is present. There is no pericardial effusion. Moderate right and small left pleural effusions have increased in size since CT of September 25, 2024. Interlobular septal thickening has increased as well. There are groundglass opacities within the lungs. A branching irregular 2.1 cm right upper lobe focus on image 109 of [address] has developed since prior CT. There are moderate secretions within the distal trachea and left mainstem bronchus. There are also mild secretions within the bronchus intermedius. Lungs are suboptimally assessed due to respiratory motion. IMPRESSION: 1. Cardiomegaly with interstitial pulmonary edema. Moderate right and small left pleural effusions. 2. 2.1 cm branching irregular focus within the right lobe which is new since CT of September 25, 2024. Given interval development, this favors pneumonia or aspiration pneumonitis. A chest CT in 3 months to ensure resolution is recommended. 3. Moderate secretions within the airways, as above. 4. Cardiomegaly and extensive coronary artery calcification. 5. Bilateral lower lobe groundglass opacities which could reflect atelectasis, pneumonia or alveolar pulmonary edema. ACT 112: Negative or not required by law. Electronically signed by: Osito Zambrano M.D. 01/03/2025 12:40 PM Videofluoroscopic Swallow 01/06/25 09:30 MODIFIED BARIUM SWALLOW CLINICAL HISTORY: r/o aspiration COMPARISON STUDY: None. FLUOROSCOPY TIME: 2.15 minutes. Ka,r: 6.34 mGy TECHNIQUE: A modified barium swallow was performed in conjunction with Speech Pathology. The patient ingested varying consistencies of barium containing material. Video fluoroscopy was performed. FINDINGS: Penetration was noted with thin liquids by spoon. There was no aspiration. No aspiration was identified with thin liquids by cup or straw. There was no aspiration with nectar thick liquids, pudding or cookie and pudding consistencies. Epiglottic inversion was normal. Laryngeal elevation was normal. IMPRESSION: 1. No tracheal aspiration. Intact swallowing mechanism. 2. Full recommendations by Speech pathology to follow. ACT 112: Negative or not required by law. Electronically signed by: Osito Zambrano M.D. 01/06/2025 11:11 AM Medications Administered Current Inpatient Medications Acetaminophen (Acetaminophen 325 Mg Tab) 650 mg PO Q4H PRN PRN Reason: Pain or Fever Stop: 02/02/25 14:45 Last Admin: 01/05/25 19:50 Dose: 650 mg Albuterol (Albut/Ipratrop 3mg/0.5mg Neb 3 Ml Vial) 3 ml NEB Q6R RANDY; Protocol Stop: 02/02/25 18:59 Last Admin: 01/06/25 13:07 Dose: 3 ml Albuterol (Albuterol Hfa 8 Gm Inhaler) 2 puffs INH QID PRN PRN Reason: Wheezing Stop: 02/02/25 16:15 Albuterol (Albut/Ipratrop 3mg/0.5mg Neb 3 Ml Vial) 3 ml NEB Q4H PRN; Protocol PRN Reason: shortness of breath or wheezing Stop: 02/02/25 16:15 Aspirin (Aspirin 81 Mg Ectab) 81 mg PO QAM RANDY Stop: 02/03/25 08:59 Last Admin: 01/06/25 08:23 Dose: 81 mg Atorvastatin Calcium (Atorvastatin 40 Mg Tab) 40 mg PO QAM RANDY Stop: 02/02/25 16:15 Last Admin: 01/06/25 08:23 Dose: 40 mg Citalopram Hydrobromide (Citalopram 20 Mg Tab) 20 mg PO PM RANDY Stop: 02/02/25 20:59 Last Admin: 01/05/25 21:22 Dose: 20 mg Dextrose (Dextrose 50% 50 Ml Syringe) 25 - 50 ml IV UD PRN; Protocol PRN Reason: Hypoglycemia Protocol Stop: 02/04/25 08:29 Doxycycline Hyclate (Doxycycline Hyclate 100 Mg Cap) 100 mg PO Q12H RANDY Stop: 01/09/25 17:59 Epoetin Darryl (Epoetin Darryl 4,000 Unit/Ml Vial) 4,000 units IV ONE ONE Stop: 01/07/25 07:01 Finasteride (Finasteride 5 Mg Tab) 5 mg PO HS RANDY Stop: 02/02/25 20:59 Last Admin: 01/05/25 21:22 Dose: 5 mg Fluticasone/Vilanterol (Fluticasone/Vilanterol 100/25mcg 14 Puffs/Inhaler) 1 puffs INH PM RANDY Stop: 02/02/25 20:59 Last Admin: 01/05/25 21:23 Dose: 1 puffs Gabapentin (Gabapentin 100 Mg Cap) 100 mg PO DAILY PRN PRN Reason: NEUROPATHY Stop: 02/02/25 16:15 Last Admin: 01/05/25 07:39 Dose: 100 mg Glucagon (Glucagon For Inj 1 Mg Vial) 1 mg SQ UD PRN; Protocol PRN Reason: Hypoglycemia Protocol Stop: 02/04/25 08:29 Glucose (Glucose 40% Gel 15 Gm Tube) 15 - 30 gm PO UD PRN; Protocol PRN Reason: Hypoglycemia Protocol Stop: 02/04/25 08:29 Glucose (Glucose 10 Tab/Tube) 4 - 8 tab PO UD PRN; Protocol PRN Reason: Hypoglycemia Protocol Stop: 02/04/25 08:29 Heparin Sodium (Porcine) (Heparin Sod 5,000 Unit/0.5 Ml Vial) 5,000 units SQ Q12 [facility]ANDY Stop: 02/04/25 08:59 Last Admin: 01/06/25 08:24 Dose: 5,000 units Hydralazine HCl (Hydralazine Hcl 20 Mg/Ml Vial) 5 mg IV Q4H PRN PRN Reason: hypertension Stop: 02/02/25 15:19 Methylprednisolone 60 mg/ (Syringe) 0.96 mls @ 1.5 mls/min IV Q12H RANDY Stop: 02/02/25 20:59 Last Admin: 01/06/25 08:21 Dose: 1.5 mls/min Piperacillin Sod/Tazobactam Sod (Zosyn) 4.5 gm in 100 mls @ 25 mls/hr IV Q12H [facility]; Protocol Stop: 01/12/25 14:59 Last Admin: 01/06/25 14:16 Dose: 25 mls/hr Insulin Aspart (Insulin Aspart Per Unit Charge) 0 units SC ACHS [facility] Stop: 02/04/25 08:29 Last Admin: 01/06/25 12:27 Dose: 1 units Insulin Glargine (Lantus Per Unit Charge) 0 units SC HS [facility]; Protocol Stop: 02/04/25 20:59 Last Admin: 01/05/25 21:20 Dose: 15 units Insulin Glargine (Lantus Per Unit Charge) 15 units SC DAILY [facility] Stop: 02/05/25 08:59 Last Admin: 01/06/25 08:21 Dose: 15 units Miscellaneous (Remove Nicoderm Patch) 1 each N/A DAILY@0859 [facility] Stop: 02/03/25 08:58 Last Admin: 01/06/25 08:23 Dose: 1 each Miscellaneous (Carbohydrates For Hypoglycemia ) 15 - 30 gm PO UD PRN PRN Reason: Hypoglycemia Treatment Stop: 02/04/25 08:29 Miscellaneous Information (Pharmacy Glycemic Mgmt Consult) 1 each N/A UD PRN; Protocol PRN Reason: Consult Stop: 02/04/25 08:09 Nicotine (Nicotine 21 Mg/24 Hr Tdsy) 1 patch TD QAM [facility] Stop: 02/02/25 15:29 Last Admin: 01/06/25 08:22 Dose: 1 patch Nitroglycerin (Nitroglycerin Sl 0.4 Mg/Tab Tab) 0.4 mg SL Q5M PRN PRN Reason: Chest Pain Stop: 02/02/25 14:45 Ondansetron HCl (Ondansetron Inj 2 Mg/Ml 2 Ml Vial) 4 mg IV Q6H PRN PRN Reason: Nausea Stop: 02/02/25 14:45 Last Admin: 01/06/25 13:31 Dose: 4 mg Pantoprazole Sodium (Pantoprazole 40 Mg Tab) 40 mg PO DAILY [facility] Stop: 02/03/25 08:59 Last Admin: 01/06/25 08:22 Dose: 40 mg Sevelamer Carbonate (Sevelamer Carbonate 800 Mg Tab) 800 mg PO TIDM [facility]; Protocol Stop: 02/04/25 13:14 Last Admin: 01/06/25 12:27 Dose: 800 mg Tamsulosin HCl (Tamsulosin Hcl 0.4 Mg Cap) 0.4 mg PO HS [facility] Stop: 02/02/25 20:59 Last Admin: 01/05/25 21:23 Dose: 0.4 mg Vitamin D (Cholecalciferol 25 Mcg (1000 Units) Tab) 25 mcg PO PM [facility] Stop: 02/02/25 20:59 Last Admin: 01/05/25 21:22 Dose: 25 mcg PG Care Time/CCT Total # of Minutes Spent Total Time Spent with Patient: Total time spent is greater than 50% in coordination of care (as documented) at patient's floor/unit and/or counseling patient: Advanced Care Planning 13113 Advanced Care Planning 30 [place] [address] IN/OBS CONSULT LVL 2,35M Patient Type New History Problem Focused Exam Problem Focused Diagnoses Palliative care by specialist Z51.5 Counseling regarding goals of care Z71.89 Additional Codes Advanced Care Planning - 26186 Advanced Care Planning 30 Min: 72925 Advanced Care Planning 30 Min ([id number])
[2025-01-06] MEDS: DOXYCYCLINE HYCLATE 100 MG CAP PO SCH (17:20)
[2025-01-07 00:08] LABS: Appearance Urine Clear (Clear); Bacteria Urine Automated None Seen (None Seen); Bilirubin Urine Negative (Negative); Blood Urine 1+ (Negative); Cast Urine Automated 0-2 /lpf (0-2); Color Urine Yellow; Epithelial Cell Urine Auto 0-2 /hpf (0-2); Glucose Urine UA 1+ (Negative); Ketones Urine Negative (Negative); Leukocyte Esterase Urine 1+ (Negative); Nitrite Urine Negative (Negative); Protein Urine 2+ (Negative); Specific Gravity Urine 1.013 (1.000-1.030); Urobilinogen Urine Negative (Negative)
[2025-01-07 07:33] LABS: Hematocrit (blood only) 37.7 % (42.0-52.0); Hemoglobin 12.3 g/dl (14.0-18.0); Mean Corpuscular Hemoglobin 31.5 pg (25.0-34.0); Mean Corpuscular Hgb Conc 32.6 g/dL (32.0-36.0); Mean Corpuscular Volume 96.4 fL (80.0-100.0); RDW Coefficient of Variation 17.8 % (11.5-14.5); RDW Standard Deviation 62.9 fL (36.4-46.3); Red Blood Count 3.91 M/uL (4.70-6.10); White Blood Count 11.36 K/ul (4.8-10.8)
[2025-01-07 07:50] LABS: Mean Platelet Volume 12.6 fL (9.4-12.4); Nucleated RBC % (auto) 0.9 %; Platelet Count 88 K/uL (130-400)
[2025-01-07 07:51] LABS: Platelet Estimate Decreased (Normal)
[2025-01-07 08:06] LABS: BUN Creatinine Ratio 12.3 (10-20); Calcium 9.8 mg/dl (8.6-10.3); Creatinine Clr Calc Pharmacy 10.3 ml/min; Magnesium 2.1 mg/dl (1.7-2.4); Phosphorus 7.6 mg/dl (2.5-4.9); Potassium 4.8 mmol/L (3.5-5.1)
--- NOTE | 2025-01-07 11:48 | Nephrology Progress Note ---
Date of Service January 07, 2025 Assessment & Plan Admission and Anticipated Discharge Date Admission Date: January 03, 2025 Subjective Assessment & Plan (1) End-stage renal disease on hemodialysis: on mwf HD and adherent w/ txs as aggressive UF as tolerated given CT showing pulm edema stopped amlodipine so we have BP to work with for UF. Reviewed ECHO----new Onset RWMA. Also Aortic stenosis--so between the two next to impossible to really do Aggressive UF. No worsening but does have some perivalvular leak -- ECHO report. reviewed Cards note and the discussion about not pursuing aggresive Interventions. Agree with cards--failure to thrive at this age in dialysis patient is irreversible and will lead to within the next 1-2 month Dialysis later today Planning 2 liters off. Plan for same tomorrow--3.5 hrs and 2.5 kilo off. Lito give midodrine also 5 mg before dialysis. 2k bath. 4000 units epo (2) Prosthetic aortic valve stenosis: per cardiology w/u; f/u pending TTE would avoid enoxaparin in ESRD d/t bleeding risk > will suggest heparin gtt to hospitalist (3) COPD (chronic obstructive pulmonary disease): much more symptomatic past 3 mos. As per primary service on nebs, steroids ?aspiration PNA on admission imaging today as well > on ceftriaxone, doxy (4) Abdominal pain: as per primary service; unlikely to have UTI but if concerned check UA; he does void most days lately S----He looks sickly and much more cachectic than before. C/o resp Distress but o2 sats are fine. BP is fine. AVF is fine. Did eat most of the meal. BP is good now. Physical Exam Constitutional: Looks very ill and Cachectic. awake and alert though Respiratory: Auscultation: + crackles, + rales and + wheezes Cardiovascular: RRR Gastrointestinal (Abdomen): normal bowel sounds, soft, nontender, no hepatosplenomegaly Results & Data Vital Signs (Past 12 Hours) Vital Signs Temp Pulse Pulse Resp BP Pulse Ox O2 Del Method 01/07/25 07:33 86 22 98 Room Air 01/07/25 07:13 36.3 C L 80 19 121/77 92 Room Air 01/07/25 07:09 79 01/07/25 02:38 36.5 C 85 16 113/70 94 Room Air 01/07/25 00:57 88 18 98 Room Air
[2025-01-07] MEDS: MIDODRINE HCL 2.5 MG TAB PO SCH (14:19)
[2025-01-07] MEDS: EPOETIN ALFA 4,000 UNIT/ML VIAL IV ONE (14:37)
--- NOTE | 2025-01-07 14:39 | Hospitalist Progress Note ---
Date of Service January 07, 2025 Assessment & Plan (1) COPD (chronic obstructive pulmonary disease): (2) ESRD on dialysis: (3) Aortic valve stenosis determined by imaging: (4) Shortness of breath: Plan This is an 79-year-old male who has a significant past medical history of ESRD on HD Sunday, T2DM, diabetic peripheral neuropathy, diabetic retinopathy, PVD, secondary hyperparathyroidism, COPD, tobacco abuse, hypertension, aortic stenosis s/p TAVR in 2021, anemia of chronic disease, BPH who presented with concern for abdominal pain and SOB. Pt with recurrent admissions. Palliative Care consulted for further recs. He is currently being treated for the following: Aspiration Pneumonitis COPD (chronic obstructive pulmonary disease) Pleural effusions Pt presented with SOB CT chest concerning for aspiration pneumonitis changes and pleural effusions Blood Cx NGTD Speech consulted for aspiration, had video swallow On IV Zosyn and doxycycline getting HD for pleural effusions (see below) supplemental O2 prn- currently on RA repeat CT chest 3 mo outpatient nicotine patch ESRD on HD [facility] Nephrology following, appreciate recs s/p TAVR 22, potentially worsening, MR, MS Cardiology consulted, TTE obtained - significant RCA territory wall motion abnormalities. mildly reduced EF. New RCA territory wall motion abnormalities Per cardiology, Dr. Perez - medical management at this time Abdominal Pain CT abd/pelvis with no bowel obstruction repeat UA from 01/06 pending PPI for GERD resolved NSTEMI, likely type 2 in the setting of the above -troponins 80-100s - cardiology consulted, as above -STAT EKG/troponins for chest pain, palpitations HTN prn hydralazine >180/100 Normocytic anemia likely 2/2 ESRD -monitor DM2, PVD BPH -home meds Diet: Renal diet DVT ppx: Heparin SQ Dispo: per palliative care recs Admission and Anticipated Discharge Date Admission Date: January 03, 2025 Subjective Pt was seen in the AM Sitting up in bed Stated that he did not feel well Per nursing he is requesting a behavioral health consult Review of Systems Review of Systems: All systems reviewed & are unremarkable except as noted in Subjective Physical Exam Physical Exam: General: Alert No acute distress HEENT: NC/AT CV: RRR Resp: Breath sounds clear bilaterally, no increased effort of breathing Abdomen: Soft, nontender Extremities: No edema in lower extremities bilaterally. Results & Data Results & Data Vital Signs (Past 12 Hours) Vital Signs Temp Pulse Pulse Resp BP Pulse Ox O2 Del Method 01/07/25 13:32 82 18 90 Room Air 01/07/25 11:11 36.3 C L 87 19 121/77 95 Room Air 01/07/25 08:30 Room Air 01/07/25 07:33 86 22 98 Room Air 01/07/25 07:13 36.3 C L 80 19 121/77 92 Room Air 01/07/25 07:09 79 Diagnostic Findings Abdomen/Pelvis CT 01/03/25 11:56 CT OF THE ABDOMEN AND PELVIS WITHOUT CONTRAST CLINICAL HISTORY: Abdominal pain. COMPARISON STUDY: CT of the abdomen and pelvis December 29, 2024. TECHNIQUE: Axial images of the abdomen and pelvis were obtained without IV contrast. Images were reviewed in the axial, sagittal, and coronal planes. Automated exposure control was utilized for the study. A dose lowering technique was utilized adhering to the principles of ALARA. FINDINGS: Moderate right and small left pleural effusions and pulmonary edema are better depicted on the chest CT which will be reported separately. No pneumatosis, free air or portal venous gas is present. Mild biliary ductal dilatation remains unchanged and likely related to cholecystectomy. No hepatic lesions are identified on unenhanced exam. A small amount of perihepatic ascites is present. Left adrenal nodularity is unchanged from earlier exams. This is likely benign. Spleen and pancreas are unremarkable. Both kidneys are markedly atrophic. This is unchanged. There are numerous bilateral renal calculi. There are no ureteral calculi. There is no hydronephrosis. Numerous bilateral renal lesions are suboptimally assessed on unenhanced exam. The water attenuation lesions favor cysts. The hyperdense lesions are nonspecific but may represent proteinaceous cysts. There is no evidence for a bowel obstruction. No abdominal or pelvic lymphadenopathy is present. This extensive aortoiliac atherosclerotic plaque. No lymphadenopathy is present. There are no fluid collections. No acute fractures within the lumbar spine the pelvis or hips. IMPRESSION: 1. No bowel obstruction. No bowel wall thickening on unenhanced exam. 2. Pulmonary edema with moderate right and small left pleural effusions, better depicted on the chest CT which will be reported separately. 3. Trace abdominal ascites. 4. Bilateral nephrolithiasis. No ureteral calculi. No hydronephrosis. ACT 112: Negative or not required by law. Electronically signed by: Osito Zambrano M.D. 01/03/2025 12:[address] 01/03/25 11:56 CT OF THE CHEST WITHOUT IV CONTRAST CLINICAL HISTORY: Abdominal pain. COMPARISON STUDY: Chest CT September 25, 2024. Chest radiograph December 08, 2024. CT DOSE: 1447.6 mGy.cm TECHNIQUE: Axial images of the chest were obtained without IV contrast. Images were reviewed in the axial, sagittal, and coronal planes. IV contrast was not administered for this examination. Automated exposure control was utilized for the study. A dose lowering technique was utilized adhering to the principles of ALARA. FINDINGS: Subcutaneous lesions of the right shoulder are unchanged. These favor sebaceous cysts. Prominent mediastinal and bilateral hilar lymph nodes are present. There is a prosthetic aortic valve. The heart is moderately enlarged. Extensive coronary artery calcification is present. There is no pericardial effusion. Moderate right and small left pleural effusions have increased in size since CT of September 25, 2024. Interlobular septal thickening has increased as well. There are groundglass opacities within the lungs. A branching irregular 2.1 cm right upper lobe focus on image 109 of 253 has developed since prior CT. There are moderate secretions within the distal trachea and left mainstem bronchus. There are also mild secretions within the bronchus intermedius. Lungs are suboptimally assessed due to respiratory motion. IMPRESSION: 1. Cardiomegaly with interstitial pulmonary edema. Moderate right and small left pleural effusions. 2. 2.1 cm branching irregular focus within the right lobe which is new since CT of September 25, 2024. Given interval development, this favors pneumonia or aspiration pneumonitis. A chest CT in 3 months to ensure resolution is recommended. 3. Moderate secretions within the airways, as above. 4. Cardiomegaly and extensive coronary artery calcification. 5. Bilateral lower lobe groundglass opacities which could reflect atelectasis, pneumonia or alveolar pulmonary edema. ACT 112: Negative or not required by law. Electronically signed by: Osito Zambrano M.D. 01/03/2025 12:40 PM Videofluoroscopic Swallow 01/06/25 09:30 MODIFIED BARIUM SWALLOW CLINICAL HISTORY: r/o aspiration COMPARISON STUDY: None. FLUOROSCOPY TIME: 2.15 minutes. Ka,r: 6.34 mGy TECHNIQUE: A modified barium swallow was performed in conjunction with Speech Pathology. The patient ingested varying consistencies of barium containing material. Video fluoroscopy was performed. FINDINGS: Penetration was noted with thin liquids by spoon. There was no aspiration. No aspiration was identified with thin liquids by cup or straw. There was no aspiration with nectar thick liquids, pudding or cookie and pudding consistencies. Epiglottic inversion was normal. Laryngeal elevation was normal. IMPRESSION: 1. No tracheal aspiration. Intact swallowing mechanism. 2. Full recommendations by Speech pathology to follow. ACT 112: Negative or not required by law. Electronically signed by: Osito Zambrano M.D. 01/06/2025 11:11 AM
[2025-01-07] MEDS ORDERED: Nursing to Pharmacy Communication SCH (19:30)
[2025-01-08] MEDS: MELATONIN 3 MG TAB PO PRN (00:03)
[2025-01-08] MEDS: DEXTROSE 50% 50 ML SYRINGE IV PRN (07:32)
[2025-01-08 07:51] VITALS: BP 150/79; PULSE 104; RESP 19; TEMP 97.7; O2SAT 94
[2025-01-08] MEDS ORDERED: HALOPERIDOL ORAL SOLN 2 MG/ML PO PRN (08:02)
--- NOTE | 2025-01-08 08:10 | Palliative Care Progress Note ---
Date of Service January 08, 2025 Assessment & Plan (1) Encounter for end of life care: Plan: contacted dtr,POA reviewed changes she would like CHAIN MENDER plan of care reaffirmed code is DNR/DNI CHAIN MENDER rtx written primary team notified dtr states she will be here in approx 30min - instructed dtr to ask for Dr Veras, as I am in clinic today and not available inpatient. (2) Palliative care by specialist: (3) Advanced directives, counseling/discussion: Plan: see #1 Telephonic ACP re dying process, EAOL changes for 15min Plan CHAIN MENDER, rx written Thank you for allowing us to participate in the ongoing care of this patient. Please page with any additional concerns. 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: paged by primary team pt declining rapidly, tachypnea, grimacing, belly breathing, lethargy Results & Data Vital Signs (Past 12 Hours) Vital Signs Temp Pulse Pulse Resp BP Pulse Ox O2 Del Method 01/08/25 07:43 96 H 01/08/25 07:04 36.5 C 104 H 19 150/79 H 94 Room Air 01/08/25 03:06 36.4 C L 99 H 16 121/83 93 Room Air 01/08/25 01:48 90 22 97 Room Air 01/07/25 23:47 36.7 C 88 18 100/59 L 96 Room Air PG Care Time/CCT Total # of Minutes Spent Total Time Spent: 25 Total Time Spent with Patient: Total time spent is greater than 50% in coordination of care (as documented) at patient's floor/unit and/or counseling patient: [place] [address] SUB INP/OBS CARE 2/35MIN Patient Type Established History Comprehensive Medical Decision Making High Complexity Diagnoses Encounter for end of life care Z51.5 Palliative care by specialist Z51.5 Advanced directives, counseling/discussion Z71.89
--- NOTE | 2025-01-08 08:29 | Hospitalist Progress Note ---
Date of Service January 08, 2025 Assessment & Plan (1) COPD (chronic obstructive pulmonary disease): (2) ESRD on dialysis: (3) Aortic valve stenosis determined by imaging: (4) Shortness of breath: (5) Encounter for end of life care: Plan This is an 79-year-old male who has a significant past medical history of ESRD on HD Sunday, T2DM, diabetic peripheral neuropathy, diabetic retinopathy, PVD, secondary hyperparathyroidism, COPD, tobacco abuse, hypertension, aortic stenosis s/p TAVR in 2021, anemia of chronic disease, BPH who presented with concern for abdominal pain and SOB. Pt with recurrent admissions. Palliative Care consulted for further recs. Pt was transitioned to comfort measures only on 01/08/25. He was previously being treated for the following: Aspiration Pneumonitis COPD (chronic obstructive pulmonary disease) Pleural effusions Pt presented with SOB CT chest concerning for aspiration pneumonitis changes and pleural effusions Blood Cx NGTD Speech consulted for aspiration, had video swallow On IV Zosyn and doxycycline getting HD for pleural effusions (see below) supplemental O2 prn- currently on RA repeat CT chest 3 mo outpatient nicotine patch ESRD on HD [facility] Nephrology following, appreciate recs s/p TAVR 22, potentially worsening, MR, MS Cardiology consulted, TTE obtained - significant RCA territory wall motion abnormalities. mildly reduced EF. New RCA territory wall motion abnormalities Per cardiology, Dr. Perez - medical management at this time Abdominal Pain CT abd/pelvis with no bowel obstruction repeat UA from 01/06 pending PPI for GERD resolved NSTEMI, likely type 2 in the setting of the above -troponins 80-100s - cardiology consulted, as above -STAT EKG/troponins for chest pain, palpitations HTN prn hydralazine >180/100 Normocytic anemia likely 2/2 ESRD -monitor DM2, PVD BPH -home meds Diet: Renal diet DVT ppx: Heparin SQ Dispo: per palliative care recs Admission and Anticipated Discharge Date Admission Date: January 03, 2025 Subjective called to bedside in the AM Reports of pt with abdominal breathing and discomfort but not hypoxic On exam moaning Daughter called and updated over telephone and later at bedside palliative care also contacted and per their discussion with daughter 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 Results & Data Results & Data Vital Signs (Past 12 Hours) Vital Signs Temp Pulse Pulse Resp BP Pulse Ox O2 Del Method 01/08/25 07:43 96 H 01/08/25 07:04 36.5 C 104 H 19 150/79 H 94 Room Air 01/08/25 03:06 36.4 C L 99 H 16 121/83 93 Room Air 01/08/25 01:48 90 22 97 Room Air 01/07/25 23:47 36.7 C 88 18 100/59 L 96 Room Air
--- NOTE | 2025-01-08 08:41 | XRay Report ---
EXAM: XR chest 1V portable CLINICAL HISTORY: SOB TECHNIQUE: An X-ray image of the chest is obtained in 1 AP projection. COMPARISON: Last X-ray study on 12/29/2024. FINDINGS: Pulmonary Parenchyma: Prominent bronchovascular markings both lungs with peribronchial wall cuffing, interstitial thickening and alveolar opacities at middle and lower lung zones, more at right side. Blunting of both costopherenic angles , suggesting pleural effusion or pleural thickening. Heart and Mediastinum: Prominent hilar vascular shadows. Mildly enlarged cardiac size. Prominent aortic arch with mural calcifications within. No mediastinal widening or masses. No hilar or mediastinal lymphadenopathy. Bony Thorax: Bony thorax appears intact without fractures or deformities. Soft Tissues: Soft tissues overlying the chest wall are unremarkable. Chest leads are noted. IMPRESSION: 1. Prominent bronchovascular markings both lungs with peribronchial wall cuffing, interstitial thickening and and alveolar opacities at middle and lower lung zones, more at right side.likley suggesting interstitial edema (or chronic interstitial disease) with possibile basal infiltration / early pulmonary edema. Clinical correlation and further CT assesment is advised. (Mild progression). [id number]. Blunting of both costopherenic angles , suggesting mild pleural effusion. (Stable on left side/[id number].5.1.2 new on right side)./OBX.5.1.2/OBX.5.1 3. Mildly enlarged cardiac size with prominent hilar vascular shadows and prominnet aortic arch. (Stable). Electronically signed by Yvette Pugh 01-08-2025 08:40 AM
[2025-01-08] MEDS ORDERED: predniSONE 20 MG TAB PO SCH (09:00)
[2025-01-08] MEDS: GLYCOPYRROLATE 0.2 MG/ML VIAL IV PRN (09:25)
--- NOTE | 2025-01-08 09:35 | Nephrology Progress Note ---
Date of Service January 08, 2025 Assessment & Plan Admission and Anticipated Discharge Date Admission Date: January 03, 2025 Subjective Assessment & Plan (1) End-stage renal disease on hemodialysis: on [facility] HD and adherent w/ txs as aggressive UF as tolerated given CT showing pulm edema stopped amlodipine so we have BP to work with for UF. Reviewed ECHO----new Onset RWMA. Also Aortic stenosis--so between the two next to impossible to really do Aggressive UF. No worsening but does have some perivalvular leak -- ECHO report. reviewed Cards note and the discussion about not pursuing aggresive Interventions. Agree with cards--failure to thrive at this age in dialysis patient is irreversible. Reviewed rapid clinical decline and is now Comfort care only. He is actively dying now. No plan for dialysis now. (2) Prosthetic aortic valve stenosis: per cardiology w/u; f/u pending TTE would avoid enoxaparin in ESRD d/t bleeding risk > will suggest heparin gtt to hospitalist (3) COPD (chronic obstructive pulmonary disease): much more symptomatic past 3 mos. As per primary service on nebs, steroids ?aspiration PNA on admission imaging today as well > on ceftriaxone, doxy (4) Abdominal pain: as per primary service; unlikely to have UTI but if concerned check UA; he does void most days lately S----He looks sickly and much more cachectic than before. C/o resp Distress but o2 sats are fine. BP is fine. AVF is fine. Did eat most of the meal. BP is good now. Physical Exam Constitutional: Looks very ill and Cachectic. awake and alert though Respiratory: Auscultation: + crackles, + rales and + wheezes Cardiovascular: RRR Gastrointestinal (Abdomen): normal bowel sounds, soft, nontender, no hepatosplenomegaly Results & Data Vital Signs (Past 12 Hours) Vital Signs Temp Pulse Pulse Resp BP Pulse Ox O2 Del Method 01/08/25 07:43 96 H 01/08/25 07:04 36.5 C 104 H 19 150/79 H 94 Room Air 01/08/25 03:06 36.4 C L 99 H 16 121/83 93 Room Air 01/08/25 01:48 90 22 97 Room Air 01/07/25 23:47 36.7 C 88 18 100/59 L 96 Room Air
[2025-01-08] MEDS: HYDROmorphone INJ 0.5 MG/0.5 ML SYR IV PRN (14:03)
[2025-01-09] MEDS: LORazepam 2 MG/1 ML VIAL IV PRN (01:30)
[2025-01-09] MEDS: HYOSCYAMINE SULFATE 0.125 MG TAB SL PRN (02:01)
[2025-01-09] MEDS: ATROPINE SULFATE 1% OP SOLN 5 ML BTL SL PRN (05:42)
--- NOTE | 2025-01-09 11:45 | Hospitalist Progress Note ---
Date of Service January 09, 2025 Assessment & Plan (1) COPD (chronic obstructive pulmonary disease): (2) ESRD on dialysis: (3) Aortic valve stenosis determined by imaging: (4) Shortness of breath: (5) Encounter for end of life care: Plan This is an 79-year-old male who has a significant past medical history of ESRD on HD Sunday, T2DM, diabetic peripheral neuropathy, diabetic retinopathy, PVD, secondary hyperparathyroidism, COPD, tobacco abuse, hypertension, aortic stenosis s/p TAVR in 2021, anemia of chronic disease, BPH who presented with concern for abdominal pain and SOB. Pt with recurrent admissions. Palliative Care consulted for further recs. Pt was transitioned to comfort measures only on 01/08/25. He was previously being treated for the following: Aspiration Pneumonitis COPD (chronic obstructive pulmonary disease) Pleural effusions Pt presented with SOB CT chest concerning for aspiration pneumonitis changes and pleural effusions Blood Cx NGTD Speech consulted for aspiration, had video swallow On IV Zosyn and doxycycline getting HD for pleural effusions (see below) supplemental O2 prn- currently on RA repeat CT chest 3 mo outpatient nicotine patch ESRD on HD [facility] Nephrology following, appreciate recs s/p TAVR 22, potentially worsening, MR, MS Cardiology consulted, TTE obtained - significant RCA territory wall motion abnormalities. mildly reduced EF. New RCA territory wall motion abnormalities Per cardiology, Dr. Perez - medical management at this time Abdominal Pain CT abd/pelvis with no bowel obstruction repeat UA from 01/06 pending PPI for GERD resolved NSTEMI, likely type 2 in the setting of the above -troponins 80-100s - cardiology consulted, as above -STAT EKG/troponins for chest pain, palpitations HTN prn hydralazine >180/100 Normocytic anemia likely 2/2 ESRD -monitor DM2, PVD BPH -home meds Diet: Renal diet DVT ppx: Heparin SQ Dispo: per palliative care recs Admission and Anticipated Discharge Date Admission Date: January 03, 2025 Subjective Pt was seen with family at bedside Family requesting for fluid restriction limits on diet to be removed Removed as pt comfort measures Review of Systems Review of Systems: All systems reviewed & are unremarkable except as noted in Subjective Physical Exam Physical Exam: General: comfortable HEENT: NC/AT Resp: no increased effort of breathing Results & Data Results & Data Vital Signs (Past 12 Hours) Vital Signs O2 Del Method O2 Flow Rate 01/09/25 07:49 Nasal Cannula 2
--- NOTE | 2025-01-10 00:41 | Death Pronouncement Note ---
Date of Service January 09, 2025 Pronouncement Note Admission Date January 03, 2025 Date and Time of Date of : 01/09/25 Time of : 23:59 Summary Discharge summary and certificate to be completed by Dr. Veras. Additional Data Confirmation of : no pulse, no respirations, no heart sounds and pupils fixed and dilated Attending physician: Deborah Veras MD
--- NOTE | 2025-01-10 09:39 | Discharge Summary ---
Discharge Summary Date of Service January 10, 2025 Principal Dx & Hospital Course #1 = Principal Diagnosis (1) COPD (chronic obstructive pulmonary disease): (2) ESRD on dialysis: (3) Aortic valve stenosis determined by imaging: (4) Shortness of breath: (5) Encounter for end of life care: (6) Palliative care by specialist: Plan This is an 79-year-old male who has a significant past medical history of ESRD on HD Sunday, ischemic heart disease, Mild to moderate MR/Mild MS, aortic stenosis s/p TAVR in 2021, PAD with left superficial femoral artery stenting, T2DM, diabetic peripheral neuropathy, diabetic retinopathy, PVD, secondary hyperparathyroidism, COPD, tobacco abuse, hypertension, anemia of chronic disease, BPH who presented with concern for abdominal pain and SOB. Pt with recurrent admissions in the setting of ESRD and volume overload. Also with worsening coronary artery disease and cardiac valve dysfunction not amenable to cardiac procedural treatment. Palliative Care consulted for further recs. Per their consultation, they noted the following discussion with the pt's daughter and POHarshad Rice: ...Krystal shared that she has spoken with cardiology and nephrology and "it doesn't look good". She shared that he has always tolerated HD well but recently he has been expressing to her that "he just wants to quit, he says he cannot take it anymore". She shared that she has always encouraged him to continue on with treatments but that lately he has been so miserable that she wonders if that was the right thing to do. She expressed concern that he is suffering physically and emotionally. We discussed the pt's heart disease and prosthetic valve, she shared that cardiology had told her that there is nothing they can do because he is to sick for any surgery. Discussed nephrology evaluation and poor prognosis with failure to thrive, worsening heart disease, worsening COPD and current poor tolerance for aggressive HD . Krystal shared that she knows that the pt does not want HD anymore, but "he is all I have and I don't want to loose him too". Krystal shared that she "knows that he would just want to go back home and " but she has a hard time even thinking about letting go. Discussed transition to comfort directed care as a refocusing of attention from prolonging life (and suffering) to maximizing quality of life over quantity...." Pt with further decompensation on 01/08/25 and per Palliative Care at that time the following was noted: "...contacted dtr,POA reviewed changes she would like [employer] plan of care reaffirmed code is DNR/DNI [employer] rtx written..." Pt was transitioned to comfort measures only on 01/08/25 and subsequently on 01/09/25. He was previously being treated for the following: Aspiration Pneumonitis COPD (chronic obstructive pulmonary disease) Pleural effusions Pt presented with SOB CT chest concerning for aspiration pneumonitis changes and pleural effusions Blood Cx NGTD Speech consulted for aspiration, had video swallow which noted "No tracheal aspiration. Intact swallowing mechanism." Was on IV Zosyn and doxycycline getting HD for pleural effusions (see below) supplemental O2 prn needed repeat CT chest 3 mo outpatient but before discharge nicotine patch CAD Ischemic heart disease s/p TAVR 22 potentially worsening, MR, MS PAD with left superficial femoral artery stenting -troponins 80-100s EKG with PVCs TTE obtained - significant RCA territory wall motion abnormalities. mildly reduced EF. New RCA territory wall motion abnormalities Cardiology consulted Per cardiology, Dr. Perez - medical management at this time Per Cardiology Dr Perez, he noted the following: "...Talked to patient and his daughter Krystal about cardiac catheterization/ALBERTO to further evaluate for CAD/valve deterioration. Both concerned going through additional procedures with his current frailty. I share their concerns and feel that it is unlikely these procedures would significantly improve symptoms at this time. For now we will hold off cardiac testing. Continue aspirin, statin. If BP allows consider starting ARB. Reconsider cardiac testing if clinical condition improves...." ESRD on HD [facility] noting pleural effusions as above HD on MWF with other sessions as needed Nephrology followed, noted/ stated the following per Dr Pro Ortiz: "...Reviewed ECHO----new Onset RWMA. Also Aortic stenosis--so between the two next to impossible to really do Aggressive UF. No worsening but does have some perivalvular leak -- ECHO report. reviewed Cards note and the discussion about not pursuing aggresive Interventions. Agree with cards--failure to thrive at this age in dialysis patient is irreversible. Reviewed rapid clinical decline and is now Comfort care only. He is actively dying now. No plan for dialysis now..." Abdominal Pain CT abd/pelvis with no bowel obstruction repeat UA from 01/06 with no significant growth PPI for GERD HTN prn hydralazine >180/100 Normocytic anemia likely 2/2 ESRD -monitor DM2 BPH home meds ISS in the hospital Notes For Next Care Provider pt passed after family decided to transition to comfort measures. See discussion above Medication Changes From Visit None- pt Admission HPI Per Admitting Provider 79M pmh ESRD on HD MWF c/b secondary hyperparathyroidism, anemia of chronic dx, DM2 c/b neuropathy, retinopathy, PVD, COPD w/current nicotine abuse, htn, s/p TAVR 2021, MR, Mitral stenosis, BPH who presents to the ED for abdominal pain and SOB. Patient states that he had some periumbilical abdominal burning as well as worsened SOB in the last two weeks for which he called EMS. States he was seen here a few days ago and d/c home without resolution of his symptoms. In the interim patient saw cardiology, who noted potential worsening of his , also with MR and MS, though cardiology is unclear this is related to his progressive respiratory failure, with potential ALBERTO to further evaluate. On my evaluation patient states that he feels improved, specifically that his abdominal pain is largely resolved, and that he did not suspected GERD or UTI for his symptoms, denying frequency, discharge, suprapubic pain. Patient with continued endorsed SOB, though improved. Admission Exam Per Admitting Provider Constitutional: WD/WN, vitals as above Respiratory: Auscultation: + crackles, + rales and + wheezes Cardiovascular: RRR Gastrointestinal (Abdomen): normal bowel sounds, soft, nontender, no hepatosplenomegaly Discharge Exam See note Updated Medication List Medication Instructions Recorded Confirmed Type atorvastatin 40 mg tablet 40 mg PO UD 07/31/19 01/03/25 History cholecalciferol (vitamin D3) 25 1,000 unit PO PM 07/31/19 01/03/25 History mcg (1,000 unit) tablet (Vitamin D3) finasteride 5 mg tablet 5 mg PO HS 07/31/19 01/03/25 History aspirin 81 mg tablet,delayed 81 mg PO QAM 01/06/20 01/03/25 History release albuterol sulfate 90 mcg/actuation 2 puff inhalation QID PRN Wheezing 04/09/24 01/03/25 History aerosol inhaler fluticasone furoate 200 1 inh inhalation UD PRN Shortness 04/09/24 01/03/25 History mcg-vilanterol 25 mcg/dose Of Breath Or Wheezing inhalation powder (Breo Ellipta) tamsulosin 0.4 mg capsule 0.4 mg PO HS 08/21/24 01/03/25 History amlodipine 5 mg tablet 5 mg PO QAM 09/24/24 01/03/25 History citalopram 20 mg tablet 20 mg PO UD 09/24/24 01/03/25 History gabapentin 100 mg capsule 100 mg PO DAILY PRN NEUROPATHY 09/24/24 01/03/25 History sucroferric oxyhydroxide 500 mg 500 mg PO TIDM 09/24/24 01/03/25 History chewable tablet (Velphoro) linagliptin 5 mg tablet (Tradjenta) 5 mg PO UD 11/24/24 01/03/25 History ipratropium 0.5 mg-albuterol 3 mg 3 ml NEB Q4H PRN shortness of 11/27/24 01/03/25 Rx (2.5 mg base)/3 mL nebulization breath or wheezing #90 mL soln fluticasone furoate 100 1 inh inhalation UD 01/03/25 01/03/25 History mcg-vilanterol 25 mcg/dose inhalation powder (Breo Ellipta) Hospital Stay Data Consultations 01/03/25 14:51 ED Decision to Admit Stat 01/03/25 16:55 Consult Cardiology Routine Consult Nephrology Routine 01/05/25 15:34 Consult Palliative Care Routine 01/07/25 19:39 Consult Behavioral Health Liaison Routine Diagnostic Imagining Performed 01/03/25 11:56 CT abd pelvis wo con Stat CT chest diagnostic wo con Stat 01/06/25 09:30 Fluoro video [FL video swallow] Routine Abdomen/Pelvis CT 01/03/25 11:56 CT OF THE ABDOMEN AND PELVIS WITHOUT CONTRAST CLINICAL HISTORY: Abdominal pain. COMPARISON STUDY: CT of the abdomen and pelvis December 29, 2024. TECHNIQUE: Axial images of the abdomen and pelvis were obtained without IV contrast. Images were reviewed in the axial, sagittal, and coronal planes. Automated exposure control was utilized for the study. A dose lowering technique was utilized adhering to the principles of ALARA. FINDINGS: Moderate right and small left pleural effusions and pulmonary edema are better depicted on the chest CT which will be reported separately. No pneumatosis, free air or portal venous gas is present. Mild biliary ductal dilatation remains unchanged and likely related to cholecystectomy. No hepatic lesions are identified on unenhanced exam. A small amount of perihepatic ascites is present. Left adrenal nodularity is unchanged from earlier exams. This is likely benign. Spleen and pancreas are unremarkable. Both kidneys are markedly atrophic. This is unchanged. There are numerous bilateral renal calculi. There are no ureteral calculi. There is no hydronephrosis. Numerous bilateral renal lesions are suboptimally assessed on unenhanced exam. The water attenuation lesions favor cysts. The hyperdense lesions are nonspecific but may represent proteinaceous cysts. There is no evidence for a bowel obstruction. No abdominal or pelvic lymphadenopathy is present. This extensive aortoiliac atherosclerotic plaque. No lymphadenopathy is present. There are no fluid collections. No acute fractures within the lumbar spine the pelvis or hips. IMPRESSION: 1. No bowel obstruction. No bowel wall thickening on unenhanced exam. 2. Pulmonary edema with moderate right and small left pleural effusions, better depicted on the chest CT which will be reported separately. 3. Trace abdominal ascites. 4. Bilateral nephrolithiasis. No ureteral calculi. No hydronephrosis. ACT 112: Negative or not required by law. Electronically signed by: Osito Zambrano M.D. 01/03/2025 12:[address] 01/03/25 11:56 CT OF THE CHEST WITHOUT IV CONTRAST CLINICAL HISTORY: Abdominal pain. COMPARISON STUDY: Chest CT September 25, 2024. Chest radiograph December 08, 2024. CT DOSE: 1447.6 mGy.cm TECHNIQUE: Axial images of the chest were obtained without IV contrast. Images were reviewed in the axial, sagittal, and coronal planes. IV contrast was not administered for this examination. Automated exposure control was utilized for the study. A dose lowering technique was utilized adhering to the principles of ALARA. FINDINGS: Subcutaneous lesions of the right shoulder are unchanged. These favor sebaceous cysts. Prominent mediastinal and bilateral hilar lymph nodes are present. There is a prosthetic aortic valve. The heart is moderately enlarged. Extensive coronary artery calcification is present. There is no pericardial effusion. Moderate right and small left pleural effusions have increased in size since CT of September 25, 2024. Interlobular septal thickening has increased as well. There are groundglass opacities within the lungs. A branching irregular 2.1 cm right upper lobe focus on image 109 of [address] has developed since prior CT. There are moderate secretions within the distal trachea and left mainstem bronchus. There are also mild secretions within the bronchus intermedius. Lungs are suboptimally assessed due to respiratory motion. IMPRESSION: 1. Cardiomegaly with interstitial pulmonary edema. Moderate right and small left pleural effusions. 2. 2.1 cm branching irregular focus within the right lobe which is new since CT of September 25, 2024. Given interval development, this favors pneumonia or aspiration pneumonitis. A chest CT in 3 months to ensure resolution is recommended. 3. Moderate secretions within the airways, as above. 4. Cardiomegaly and extensive coronary artery calcification. 5. Bilateral lower lobe groundglass opacities which could reflect atelectasis, pneumonia or alveolar pulmonary edema. ACT 112: Negative or not required by law. Electronically signed by: Osito Zambrano M.D. 01/03/2025 12:40 PM Videofluoroscopic Swallow 01/06/25 09:30 MODIFIED BARIUM SWALLOW CLINICAL HISTORY: r/o aspiration COMPARISON STUDY: None. FLUOROSCOPY TIME: 2.15 minutes. Ka,r: 6.34 mGy TECHNIQUE: A modified barium swallow was performed in conjunction with Speech Pathology. The patient ingested varying consistencies of barium containing material. Video fluoroscopy was performed. FINDINGS: Penetration was noted with thin liquids by spoon. There was no aspiration. No aspiration was identified with thin liquids by cup or straw. There was no aspiration with nectar thick liquids, pudding or cookie and pudding consistencies. Epiglottic inversion was normal. Laryngeal elevation was normal. IMPRESSION: 1. No tracheal aspiration. Intact swallowing mechanism. 2. Full recommendations by Speech pathology to follow. ACT 112: Negative or not required by law. Electronically signed by: Osito Zambrano M.D. 01/06/2025 11:11 AM Chest X-Ray 01/08/25 07:45 EXAM: XR chest 1V portable CLINICAL HISTORY: SOB TECHNIQUE: An X-ray image of the chest is obtained in 1 AP projection. COMPARISON: Last X-ray study on 12/29/2024. FINDINGS: Pulmonary Parenchyma: Prominent bronchovascular markings both lungs with peribronchial wall cuffing, interstitial thickening and alveolar opacities at middle and lower lung zones, more at right side. Blunting of both costopherenic angles , suggesting pleural effusion or pleural thickening. Heart and Mediastinum: Prominent hilar vascular shadows. Mildly enlarged cardiac size. Prominent aortic arch with mural calcifications within. No mediastinal widening or masses. No hilar or mediastinal lymphadenopathy. Bony Thorax: Bony thorax appears intact without fractures or deformities. Soft Tissues: Soft tissues overlying the chest wall are unremarkable. Chest leads are noted. IMPRESSION: 1. Prominent bronchovascular markings both lungs with peribronchial wall cuffing, interstitial thickening and and alveolar opacities at middle and lower lung zones, more at right side.likley suggesting interstitial edema (or chronic interstitial disease) with possibile basal infiltration / early pulmonary edema. Clinical correlation and further CT assesment is advised. (Mild progression). [id number]. Blunting of both costopherenic angles , suggesting mild pleural effusion. (Stable on left side/[id number].5.1.2 new on right side)./OBX.5.1.2/OBX.5.1 3. Mildly enlarged cardiac size with prominent hilar vascular shadows and prominnet aortic arch. (Stable). Electronically signed by Yvette Pugh 01-08-2025 08:40 AM Total Time Total Time Spent Total Time Spent (In Minutes): 60
--- NOTE | 2025-01-13 09:19 | Coding Query ---
To promote full compliance with coding requirements relating to patient care, provider participation is requested in all cases of [employer] uncertainty. Please assist us with the question(s) below: Coding Question(s): The documentation was present in all hospitalist progress notes through 01/06/25 then subsequently fell off all further documentation. Please indicate if it is still a possible diagnosis or ruled out. "SOB likely 2/2 COPD exacerbation vs. HFpEF exacerbation vs. CAP" Physician's Response(s): Heart failure exacerbation ( ) Diagnosed and POA ( ) Diagnosed and not POA ( ) Ruled out ( x ) Other (please specify) Diagnosed Community Acquired Pneumonia ( ) Diagnosed and POA ( ) Diagnosed and not POA ( ) Ruled out ( x ) Other (please specify) Aspiration Pneumonitis MTDD
== END 2025-01-09 23:59 | disposition expired ==
LOC: ED 09:08 → 2S 14:46 → SUATTDRO 14:46 → 2S 15:26 → 3E 01-08 14:35